=== PATIENT | female | born 1970 | race Caucasian/White ===

== ENCOUNTER 2021-10-20 10:36 | Outpatient (CLI) | payer OTHER, SELFPAY | END 2021-10-20 10:37 | disposition home or self-care (01) | LOC: KYNREF 10:36 | PROVIDERS: PCP Nurse Practitioner Family; Visit Provider Nurse Practitioner Family | DX: T81.49XA Infection following a procedure, other surgical site, initial encounter (principal) | CPT/HCPCS: 87070; 87186 ==

== ENCOUNTER 2021-10-31 07:46 | Outpatient (CLI) | payer OTHER, SELFPAY | END 2021-10-31 07:47 | disposition home or self-care (01) | LOC: WOUND 07:46 | PROVIDERS: PCP Nurse Practitioner Family; Visit Provider Nurse Practitioner Family | DX: T81.31XA Disruption of external operation (surgical) wound, not elsewhere classified, initial encounter (principal); L97.312 Non-pressure chronic ulcer of right ankle with fat layer exposed; Z72.0 Tobacco use; Z71.6 Tobacco abuse counseling | CPT/HCPCS: 99214 ==

== ENCOUNTER 2021-11-07 07:52 | Outpatient (CLI) | payer OTHER, SELFPAY | END 2021-11-07 07:53 | disposition home or self-care (01) | LOC: WOUND 07:52 | PROVIDERS: PCP Nurse Practitioner Family; Visit Provider Nurse Practitioner Family | DX: T81.31XA Disruption of external operation (surgical) wound, not elsewhere classified, initial encounter (principal); L97.312 Non-pressure chronic ulcer of right ankle with fat layer exposed; Z72.0 Tobacco use | CPT/HCPCS: 99212 ==

== ENCOUNTER 2021-11-14 08:03 | Outpatient (CLI) | payer OTHER, SELFPAY | END 2021-11-14 08:04 | disposition home or self-care (01) | LOC: WOUND 08:03 | PROVIDERS: PCP Nurse Practitioner Family; Visit Provider Nurse Practitioner Family | DX: L03.115 Cellulitis of right lower limb (principal); T81.31XA Disruption of external operation (surgical) wound, not elsewhere classified, initial encounter; Z72.0 Tobacco use | CPT/HCPCS: 11042 ==

== ENCOUNTER 2021-11-21 07:48 | Outpatient (CLI) | payer OTHER, SELFPAY | END 2021-11-21 07:49 | disposition home or self-care (01) | LOC: WOUND 07:48 | PROVIDERS: PCP Nurse Practitioner Family; Visit Provider Nurse Practitioner Family | DX: L03.115 Cellulitis of right lower limb (principal) | CPT/HCPCS: 97602 ==

== ENCOUNTER 2021-12-05 08:00 | Outpatient (CLI) | payer OTHER, SELFPAY ==
--- NOTE | 2021-12-05 09:15 | CRLHL7_ITS ---
For Patients: As a result of the Cures Act, medical imaging exams and procedure reports are released immediately into your electronic medical record. You may view this report before your referring provider. If you have questions, please contact your health care provider. Indication: Infection following a procedure Technique: Right foot 3 views Comparison: None Findings: Large plantar calcaneal spur is present. There is soft tissue swelling. No soft tissue gas. Degenerative changes at the midfoot. No fracture. Presumed postop changes to the posterior calcaneus. Impression: Soft tissue swelling. No evidence of osteomyelitis. Dictated by Gal Hernandez MD @ 12/05/2021 9:29:12 AM (Electronically Signed)
== END 2021-12-05 08:01 | disposition home or self-care (01) ==
PROVIDERS: PCP Nurse Practitioner Family; Visit Provider Nurse Practitioner Family
DX: T81.31XA Disruption of external operation (surgical) wound, not elsewhere classified, initial encounter (principal); L03.115 Cellulitis of right lower limb
CPT/HCPCS: 11042; 73630

== ENCOUNTER 2021-12-05 08:57 | Outpatient (CLI) | payer OTHER, SELFPAY | END 2021-12-05 08:58 | disposition home or self-care (01) | LOC: LAB 08:58 | PROVIDERS: PCP Nurse Practitioner Family; Visit Provider Nurse Practitioner Family | DX: T81.49XA Infection following a procedure, other surgical site, initial encounter (principal) | CPT/HCPCS: 73630; 87070; 87186 ==

== ENCOUNTER 2021-12-12 07:59 | Outpatient (CLI) | payer OTHER, SELFPAY | END 2021-12-12 08:00 | disposition home or self-care (01) | LOC: WOUND 07:59 | PROVIDERS: PCP Nurse Practitioner Family; Visit Provider Nurse Practitioner Family | DX: T81.31XA Disruption of external operation (surgical) wound, not elsewhere classified, initial encounter (principal); L03.115 Cellulitis of right lower limb | CPT/HCPCS: 97597 ==

== ENCOUNTER 2021-12-14 07:03 | Outpatient (CLI) | payer OTHER, SELFPAY ==
--- NOTE | 2021-12-14 07:15 | MR_ITS ---
[facility] [address] [facility] [address] Phone:?[phone] Fax:?[phone] Referring Physician Information: Jaja Arellano C.N.P. [address] [address] Phone:?[phone] Fax:?[phone] Patient:Monica Grullon D.O.B:?1970 Sex:?Female Phone:?[phone] [facility] MRN:?[id number] Exam Date:?12/14/2021 ? EXAM: MRI OF THE RIGHT ANKLE WITHOUT CONTRAST CLINICAL INFORMATION: Female, 51 years old, with right ankle pain following Achilles tendon repair. INDICATION: Evaluate for infection. PRIOR SURGERY: None reported. PLAIN FILMS: None available. COMPARISONS: No prior MRIs available. TECHNICAL INFORMATION: Using a 1.5T MR scanner and a localizing surface coil: sagittals: PD, T2, STIR coronals: PD, T2 axials: PD, T2 SEDATION: None. CONTRAST: None. FINDINGS: Osseous structures: 4 surgical anchors are present in the posterior calcaneal tuberosity, related to the Achilles tendon repair (coronal T2 series 9 image 7). There is moderate cystic change surrounding the 2 superior and the medial inferior surgical anchors (sagittal STIR series 5 images 15 & 19). This is associated with moderate surrounding bone marrow edema and an overlying fluid collection measuring 1.2 x 0.3 x 1.2 cm, which appears to extend to the dermis through a slender tract (axial PD series 3 image 21 and sagittal STIR series 5 images 17- 19). Os trigonum: No os trigonum or abnormally prominent Stieda's process. Tarsal coalition: No calcaneonavicular, talocalcaneal or cubonavicular coalition. Tibiotalar joint: Effusion: Small tibiotalar joint effusion. Ganglion cyst: None. Osteochondral surfaces: Mild subchondral edema is present along the posterior aspect of the tibial plafond, with minimal marginal osteophytosis (sagittal STIR series 5 image 16). Loose bodies: No demonstrable loose bodies. Subtalar joint: Effusion: Physiologic. Articular cartilage: No osteochondral abnormality. Tarsal joints: Talonavicular: Unremarkable. Calcaneocuboid: Unremarkable. Naviculocuneiform: Unremarkable. Tarsometatarsal: Unremarkable. Ligaments: Syndesmotic ligaments:?The anterior and posterior inferior tibiofibular syndesmotic ligaments are normal. Lateral ligaments:?The anterior talofibular ligament, posterior talofibular ligament, and calcaneofibular ligaments are intact. However, there is mild/moderate attenuation and irregularity of the anterior talofibular and calcaneofibular ligaments (axial PD series 3 images 15-20). Deltoid ligament:?The visualized components of the superficial and deep deltoid ligament, specifically the tibiospring and posterior tibiotalar ligaments, are intact, but mildly thickened and relatively amorphous in appearance (coronal PD series 8 images 16-19). Calcaneonavicular spring ligament:?The superomedial component of the calcaneonavicular spring ligament is grossly intact. Bifurcate and calcaneocuboid ligaments:?Intact lateral calcaneonavicular and medial calcaneocuboid ligaments. The dorsolateral calcaneocuboid ligament is intact. Tendons: Peroneal:?The peroneal tendons are appropriately situated within the retromalleolar groove and the superior peroneal retinaculum is intact. Normal thickness and signal intensity without tendinopathy, tenosynovitis, or split/tear. Flexor tendons:?The posterior tibialis, flexor digitorum and flexor hallucis longus tendons are intact. No significant tendinopathy and without tenosynovitis, tendon split or tendon disruption. Extensor tendons:?The anterior tibialis, extensor digitorum longus, and extensor hallucis longus tendons are intact. No significant tendinopathy and without tenosynovitis, tendon split or tendon disruption. Achilles:?Status post Achilles tendon repair. There is marked tendinopathy and irregularity of the distal Achilles tendon with low-grade interstitial tearing at the tendon insertion (sagittal STIR series 5 images 16-20 and axial T2 series 4 images 17-23). Sinus tarsi:?The sinus tarsi signal is normal. Plantar aponeurosis: There is no abnormal thickening of, abnormal intrasubstance signal involving, or perifascial edema about the plantar aponeurosis. Specifically, the plantar fascia origin appears normal in signal intensity and morphology. Plantar musculature:?The intrinsic foot musculature is normal in bulk and signal intensity without evidence of denervation atrophy. Neurovascular structures and tarsal tunnel: The posterior tibial neurovascular structures appear unremarkable coursing past the ankle and through the tarsal tunnel. IMPRESSION: 1. Status post Achilles tendon repair, transfixed by 4 surgical anchors. However, there is the appearance of marked Achilles tendinopathy with low-grade interstitial tearing at the tendon insertion as well as a focal sinus tract/ulceration of the posterior soft tissues with a 1.2 x 0.3 x 1.2 cm fluid collection. This fluid signal surrounds 3 of the surgical anchors with moderate bone marrow edema in the posterior calcaneal tuberosity. These findings are suspicious for a small soft tissue abscess with osteomyelitis. 2. Chronic sequela low-grade/incomplete sprains of the lateral ligaments and deltoid ligament complex. 3. Minimal osteoarthritis of the tibiotalar joint with a small joint effusion. 4. No other ligamentous or myotendinous abnormality. 5. No fracture or osseous stress reaction. BC Electronically signed on 12/14/2021 9:48:00 AM by Misael Demarco M.D.
== END 2021-12-14 07:04 | disposition home or self-care (01) ==
LOC: MRI 07:04
PROVIDERS: PCP Nurse Practitioner Family; Visit Provider Nurse Practitioner Family
DX: M25.571 Pain in right ankle and joints of right foot (principal); S86.011A Strain of right Achilles tendon, initial encounter; S93.421A Sprain of deltoid ligament of right ankle, initial encounter; M25.471 Effusion, right ankle; M19.071 Primary osteoarthritis, right ankle and foot
CPT/HCPCS: 73721

== ENCOUNTER 2021-12-16 11:34 | Outpatient (CLI) | payer OTHER, SELFPAY ==
[2021-12-16 15:22] LABS: Basophils Absolute Auto 0.04 K/uL (0.00-0.30); Basophils Percent Auto 0.4 % (0.0-3.0); Eosinophils Absolute Auto 0.14 K/uL (0.00-0.50); Eosinophils Percent Auto 1.5 % (0.0-7.0); Hematocrit 43.8 % (33.0-51.0); Hemoglobin* 14.9 gm/dL (12.0-16.0); Immature Granulocytes Abs Auto 0.06 K/uL (0.00-0.30); Lymphocytes Absolute Auto 2.46 K/uL (0.90-2.90); Mean Corpuscular HGB Conc 34 gm/dL (32-36); Mean Corpuscular Hemoglobin 33 pg (26-34); Mean Corpuscular Volume 98 fL (80-100); Monocytes Percent Auto 7.3 % (0.0-11.0); Neutrophils Absolute Auto 6.06 K/uL (1.7-7.0); Neutrophils Percent Auto 64.2 % (42.0-72.0); Platelet Count* 278 K/uL (140-440); RDW Coefficient of Variation % 13.5 % (11.5-15.5); Red Blood Count 4.47 m/uL (4.00-5.20); White Blood Count* 9.45 K/uL (4.50-11.00)
[2021-12-16 15:30] LABS: Chloride* 104 mmol/L (96-114); Potassium* 4.6 mmol/L (3.6-5.1); Sodium* 140 mmol/L (135-149)
[2021-12-16 15:33] LABS: Carbon Dioxide* 23 mmol/L (20-32); Creatinine* 0.6 mg/dL (0.5-1.5); Estimated Glomerular Filt Rate 107 ml/min
[2021-12-16 15:34] LABS: Blood Urea Nitrogen* 15 mg/dL (7-30); Glucose* 110 mg/dL (60-115)
[2021-12-16 15:36] LABS: C Reactive Protein* 0.5 mg/dL (0.5-1.0)
[2021-12-16 15:41] LABS: Slide Review Reflex No
[2021-12-16 16:28] LABS: Erythrocyte SedimentationRate* 8 mm/hr (2-20)
[2021-12-16 18:03] LABS: SARS PCR* Negative SARS-CoV-2 (Negative)
== END 2021-12-16 11:35 | disposition home or self-care (01) ==
PROVIDERS: PCP Nurse Practitioner Family; Visit Provider Nurse Practitioner Family
DX: Z01.818 Encounter for other preprocedural examination (principal); M86.9 Osteomyelitis, unspecified; Z20.822 Contact with and (suspected) exposure to COVID-19
CPT/HCPCS: 36415; 80048; 85025; 85651; 86140; 87635

== ENCOUNTER 2021-12-19 11:28 | Day surgery (SDC) | payer OTHER, SELFPAY ==
[2021-12-19 11:47] VITALS: BMI 39.5
[2021-12-19 11:57] VITALS: BP 163/85; PULSE 68; RESP 16; TEMP 36.7; O2SAT 96
[2021-12-19 11:59] VITALS: BMI 39.5
[2021-12-19] MEDS: SODIUM CHLORIDE 0.9 % (FLUSH) 10 ML SYRINGE IVF (12:05)
[2021-12-19] MEDS: LACTATED RINGERS 1000 ML 1,000 ML 100 ML IV (12:05)
--- NOTE | 2021-12-19 14:40 | CRLHL7_ITS ---
For Patients: As a result of the Century Cures Act, medical imaging exams and procedure reports are released immediately into your electronic medical record. You may view this report before your referring provider. If you have questions, please contact your health care provider. Indication: Intraoperative. Technique: Intraoperative fluoroscopy. Comparison: None. Findings/Impression: Intraoperative fluoroscopy prep Fluoroscopy time 5.3 seconds. Images 5. Dictated by Edison Murguia MD @ 12/19/2021 8:45:21 PM (Electronically Signed)
[2021-12-19] MEDS: CEFAZOLIN 2 GM INJ IVP (15:00)
[2021-12-19] MEDS: BUPIVACAINE 0.5% 30 ML INJECTION (15:00)
[2021-12-19 15:56] VITALS: BP 156/84; PULSE 65; RESP 16; TEMP 36.5; O2SAT 98
[2021-12-19 16:00] VITALS: BP 153/88; PULSE 61; RESP 16; O2SAT 98
--- NOTE | 2021-12-19 16:00 | W.ANESCHARGE ---
Anesthesia Charges Start Date/Time Anesthesia Start Date: 12/19/21 Anesthesia Start Time: 14:28 Stop Date/Time Anesthesia Stop Date: 12/19/21 Anesthesia Stop Time: 15:59 Summary Emergency: No
--- NOTE | 2021-12-19 16:01 | W.ANESCHARGE ---
Anesthesia Charges Start Date/Time Anesthesia Start Date: 12/19/21 Anesthesia Start Time: 14:28 Stop Date/Time Anesthesia Stop Date: 12/19/21 Anesthesia Stop Time: 15:59 Summary Emergency: No
--- NOTE | 2021-12-19 16:06 | P.GSOP_ITS ---
Operative Note Date of procedure: 12/19/21 Type of Procedure: 1. I&D right calcaneus with hardware removal Procedure Description: After discussing the risks and benefits of the procedure, the patient signed informed consent.? The operative site was marked and the patient was brought to the operating room and placed on the operating table in prone position.? Care was taken to pad the patient's pressure points.?? The patient was then [intubated/given sedation] by anesthesia.?? 20 mL of 0.5% Marcaine plain was injected into the posterior heel area. The operative site was then prepped and draped in the usual sterile fashion.? A time-out was then performed. The right leg was exsanguinated the tourniquet inflated. A linear incision was made through the old incision on the posterior calcaneus. The incision included ellipsing the central open wound for proximally 2 cm. This ellipse skin was discarded. Small amount of purulent drainage was noted from a small central wound that opened onto suture that had pulled through the tendon. Necrotic fatty tissue was noted to the wound and was excised with a rongeur back to healthy subcutaneous tissue. Unhealthy tendon was identified and excised. Followed the suture to the inferior medial anchor which was loose and removed with a hemostat. A deep culture of this bone was obtained. The bone canal was suctioned and curettaged. I followed the suture to the superior medial anchor and followed the tunnel through the tendon down to the anchor. This anchor was removed with a commercial collections driver and was not loose. this bone canal was also suctioned and curettaged. Sutures followed to the proximal lateral anchor which was loose and removed with a hemostat. The bone canal with suction and curettaged. finally the inferior lateral anchor was identified and removed again with a hemostat. The bone canal was suctioned and curettaged. small piece of bone from the inferior medial bone canal was sent to path in formalin. The entire area was irrigated with 1500 mL normal sterile saline. Only healthy tissue remained. Each bone canal was layered with vancomycin powder in addition to the soft tissues and incision. This was approximately 250 mg of vancomycin powder. Sterile dressings were then applied. The patient was then woken and transported to the recovery area in stable condition. The patient tolerated the procedure well. she will be discharged per Anesthesia. Written and verbal postop instructions given. She was given Tylenol 3 with codeine for pain. She is nonweightbearing with knee walker. Cam boot placed. Findings: Four SwiveLock anchors and suture removed Anesthesia: MAC Surgeon: Tyshawn Mohr DPM Estimated blood loss (mL): 5 Condition: stable Disposition: same day
[2021-12-19 16:11] VITALS: BP 169/95; PULSE 55; RESP 16; O2SAT 97
== END 2021-12-19 16:30 | disposition home or self-care (01) ==
PROVIDERS: PCP Nurse Practitioner Family; Visit Provider Podiatrist
PROC: (CPT 28120; principal; 2021-12-19 13:30)
DX: M86.671 Other chronic osteomyelitis, right ankle and foot (principal); L02.611 Cutaneous abscess of right foot
CPT/HCPCS: 28120; 01480; 73620; 76000; 87186; 87205; 88304; 88311; J0690; J2250; J2405; J2704; J3010; J3370; J3490; J7120

== ENCOUNTER 2021-12-20 12:24 | Outpatient (CLI) | payer OTHER, SELFPAY ==
--- NOTE | 2021-12-20 | CRLHL7_ITS ---
For Patients: As a result of the Cures Act, medical imaging exams and procedure reports are released immediately into your electronic medical record. You may view this report before your referring provider. If you have questions, please contact your health care provider. INDICATION: Chronic osteomyelitis with draining sinus. TECHNIQUE: Chest 2 views. COMPARISON: None. FINDINGS: Cardiovascular and mediastinum: Heart size and vasculature are normal in caliber and appearance. Lungs and pleural spaces: Lungs are clear. No sign of infiltrate or mass. No sign of pleural effusion. No pneumothorax. Bones and soft tissues: Thoracic dextrocurvature. IMPRESSION: No acute or significant findings. Dictated by Edison Murguia MD @ 12/20/2021 7:06:54 PM (Electronically Signed)
== END 2021-12-20 12:25 | disposition home or self-care (01) ==
PROVIDERS: PCP Nurse Practitioner Family; Visit Provider Nurse Practitioner Family
DX: M86.471 Chronic osteomyelitis with draining sinus, right ankle and foot (principal); L97.312 Non-pressure chronic ulcer of right ankle with fat layer exposed
CPT/HCPCS: 71046; 99213

== ENCOUNTER 2021-12-24 19:19 | Outpatient (RCR) | payer OTHER, SELFPAY ==
[2021-12-20 14:00] VITALS: BP 150/81; PULSE 64; RESP 14; TEMP 36.6; O2SAT 95
[2021-12-20] MEDS: cefTRIAXone 2 GM in 0.9 % SODIUM CHLORIDE Mini-bag 100 ML IVPB (14:49)
[2021-12-20] MEDS: 0.9 % SODIUM CHLORIDE 250 ml IV (15:20)
[2021-12-20] MEDS: SODIUM CHLORIDE 0.9 % (FLUSH) 10 ML SYRINGE IVF (16:04)
[2021-12-21] MEDS: 0.9 % SODIUM CHLORIDE 250 ml IV (13:53)
[2021-12-21] MEDS: cefTRIAXone 2 GM in 0.9 % SODIUM CHLORIDE Mini-bag 100 ML IVPB (13:53)
[2021-12-21 13:56] VITALS: BP 145/82; PULSE 56; RESP 16; TEMP 37.2; O2SAT 95
[2021-12-22 10:56] VITALS: BP 153/79; PULSE 65; RESP 16; TEMP 36.8; O2SAT 96
[2021-12-22] MEDS: SODIUM CHLORIDE 0.9 % (FLUSH) 10 ML SYRINGE IVF (11:20)
[2021-12-22] MEDS: 0.9 % SODIUM CHLORIDE 250 ml IV (11:20)
[2021-12-22] MEDS: cefTRIAXone 2 GM in 0.9 % SODIUM CHLORIDE Mini-bag 100 ML IVPB (11:22)
[2021-12-23 12:00] VITALS: BP 154/90; PULSE 81; RESP 14; TEMP 36.1; O2SAT 97
[2021-12-23] MEDS: cefTRIAXone 2 GM in 0.9 % SODIUM CHLORIDE Mini-bag 100 ML IVPB (12:00)
[2021-12-23] MEDS: SODIUM CHLORIDE 0.9 % (FLUSH) 10 ML SYRINGE IVF (14:27)
[2021-12-23] MEDS: 0.9 % SODIUM CHLORIDE 250 ml IV (14:27)
[2021-12-24 10:35] VITALS: BP 166/109; PULSE 61; RESP 20; TEMP 36.2; O2SAT 98
[2021-12-24] MEDS: cefTRIAXone 2 GM in 0.9 % SODIUM CHLORIDE Mini-bag 100 ML IVPB (10:45)
[2021-12-24] MEDS: SODIUM CHLORIDE 0.9 % (FLUSH) 10 ML SYRINGE IVF (11:18)
[2021-12-25] MEDS: cefTRIAXone 2 GM in 0.9 % SODIUM CHLORIDE Mini-bag 100 ML IVPB (10:37)
[2021-12-25] MEDS: SODIUM CHLORIDE 0.9 % (FLUSH) 10 ML SYRINGE IVF (10:38)
[2021-12-25] MEDS: 0.9 % SODIUM CHLORIDE 250 ml IV (10:38)
[2021-12-25 11:30] VITALS: BP 177/88; PULSE 74; RESP 16; TEMP 36.4; O2SAT 97
[2021-12-26] MEDS: 0.9 % SODIUM CHLORIDE 250 ml IV (10:21)
[2021-12-26] MEDS: cefTRIAXone 2 GM in 0.9 % SODIUM CHLORIDE Mini-bag 100 ML IVPB (10:21)
[2021-12-26] MEDS: SODIUM CHLORIDE 0.9 % (FLUSH) 10 ML SYRINGE IVF (10:21)
[2021-12-26 10:25] VITALS: BP 163/92; PULSE 55; RESP 18; TEMP 36.2; O2SAT 97
[2021-12-27 10:45] VITALS: BP 158/86; PULSE 77; RESP 16; TEMP 36.1; O2SAT 98
[2021-12-27] MEDS: cefTRIAXone 2 GM in 0.9 % SODIUM CHLORIDE Mini-bag 100 ML IVPB (11:03)
[2021-12-27] MEDS: SODIUM CHLORIDE 0.9 % (FLUSH) 10 ML SYRINGE IVF (11:03)
[2021-12-27] MEDS: 0.9 % SODIUM CHLORIDE 250 ml IV (11:04)
[2021-12-28] MEDS: 0.9 % SODIUM CHLORIDE 250 ml IV (10:34)
[2021-12-28] MEDS: SODIUM CHLORIDE 0.9 % (FLUSH) 10 ML SYRINGE IVF ×2 (10:34→11:20)
[2021-12-28 10:36] VITALS: BP 157/71; PULSE 57; RESP 16; TEMP 36.9; O2SAT 96
[2021-12-28] MEDS: cefTRIAXone 2 GM in 0.9 % SODIUM CHLORIDE Mini-bag 100 ML IVPB (10:41)
[2021-12-29 10:18] VITALS: BP 173/91; PULSE 64; RESP 18; TEMP 36; O2SAT 99
[2021-12-29] MEDS: 0.9 % SODIUM CHLORIDE 250 ml IV (10:20)
[2021-12-29] MEDS: SODIUM CHLORIDE 0.9 % (FLUSH) 10 ML SYRINGE IVF (10:20)
[2021-12-29] MEDS: cefTRIAXone 2 GM in 0.9 % SODIUM CHLORIDE Mini-bag 100 ML IVPB (10:20)
[2021-12-29 10:48] VITALS: BP 151/84
--- NOTE | 2021-12-29 11:58 | ONC.NURNOTE ---
Pt here for antibiotic infusion today. BP 170's/90's; used regular and large sized automatic cuffs, encouraged deep breathing. Pt denies headache, feeling unwell. Pt reports she has had 1 can of pop today, quit smoking 11 days ago and is busy preparing for a family wedding this weekend. She also notes that her BP has been high since battling this infection; she follows with Silvana Velarde CNP and notes her BP usually comes down at her appts to 150's/80's. Recheck BP at end of Rocephin infusion; 150's/80's, asymptomatic. Pt f/u with Silvana Velarde next Sun or for ongoing f/u of wound care. Recommend she review high BP's with provider then. [facility].
[2021-12-30 09:48] VITALS: BP 163/91; PULSE 59; RESP 16; TEMP 36; O2SAT 97
[2021-12-30] MEDS: cefTRIAXone 2 GM in 0.9 % SODIUM CHLORIDE Mini-bag 100 ML IVPB (10:07)
[2021-12-30] MEDS: 0.9 % SODIUM CHLORIDE 250 ml IV (10:09)
[2021-12-31] MEDS: cefTRIAXone 2 GM in 0.9 % SODIUM CHLORIDE Mini-bag 100 ML IVPB (09:58)
[2021-12-31] MEDS: 0.9 % SODIUM CHLORIDE 250 ml IV (09:59)
[2021-12-31] MEDS: SODIUM CHLORIDE 0.9 % (FLUSH) 10 ML SYRINGE IVF (10:00)
[2021-12-31 10:04] VITALS: BP 119/75; PULSE 86; RESP 16; TEMP 36.9; O2SAT 97
[2021-12-31 10:30] VITALS: BP 134/80; PULSE 80; RESP 16; TEMP 36.9; O2SAT 97
[2022-01-01 09:54] VITALS: BP 167/83; PULSE 62; RESP 16; TEMP 36.2; O2SAT 98
[2022-01-01] MEDS: cefTRIAXone 2 GM in 0.9 % SODIUM CHLORIDE Mini-bag 100 ML IVPB (09:55)
[2022-01-02 10:27] VITALS: BP 151/81; PULSE 63; RESP 16; TEMP 36; O2SAT 96
[2022-01-02] MEDS: cefTRIAXone 2 GM in 0.9 % SODIUM CHLORIDE Mini-bag 100 ML IVPB (10:40)
[2022-01-02] MEDS: 0.9 % SODIUM CHLORIDE 250 ml IV (10:40)
[2022-01-02] MEDS: SODIUM CHLORIDE 0.9 % (FLUSH) 10 ML SYRINGE IVF (10:41)
--- NOTE | 2022-01-02 10:48 | ONC.NURNOTE ---
Confirmed with Jaja Arellano in wound care center that today is the last day for IV therapy according to order. Jaja will call in a PO antibiotic for patient to start tomorrow. Patient aware and appointment for [facility] tomorrow will be cancelled.
== END 2022-06-18 23:59 | disposition home or self-care (01) ==
LOC: OP CLINIC 12-25 10:22 → MS OUT 12-26 10:08 → CCIC 12-27 10:30 → MS OUT 12-31 09:37 → CCIC 01-02 10:00
PROVIDERS: PCP Nurse Practitioner Family; Visit Provider Nurse Practitioner Family
DX: M86.471 Chronic osteomyelitis with draining sinus, right ankle and foot (principal); L97.312 Non-pressure chronic ulcer of right ankle with fat layer exposed
CPT/HCPCS: 71046; 96365; 99211; J0696; J7050

== ENCOUNTER 2022-01-06 12:46 | Outpatient (CLI) | payer OTHER, SELFPAY ==
--- OUTSIDE RECORDS SUMMARY | 2022-02-16 09:56 | XMS_ITS | Encounter Summary ---
:1970 Author Organization [facility] Address [address] [place] [address] Care Team Providers Name Role Phone Mily Contreras APRN C.N.P., D.N.P. Primary Care Provider Reason for Visit Reason Comments New Patient Outpatient (Routine) - Closed Specialty Diagnoses / Procedures Referred By Contact Refer red To Contact Rheumatology Diagnoses Polyarthritis Silvana Velarde, C.N.P. [address] [place] [address] Referral ID Status Reason Start Date Expiration Date Visits Requ ested Visits Authorized [id number] Closed 03/12/2018 03/12/2019 1 1 Encounter Details Date Type Department Care Team Description 06/24/2018 Comprehensive Visit Division of Austin Webb M.D., Ph.D. Epicondylitis Medial Left (Primary Dx); Rheumatology in [place] Narvae[place] M.B.BCarineSCarine [address] [place] [address] Polyarthritis; [place], [place] Epicondylitis Lateral Right [address] [place] [phone] Social History Tobacco Use Types Packs/Day Years [...] Comments Blood Pressure 155/94 06/24/2018 8:08 AM FRUIT RECEIVER Pulse 69 06/24/2018 8:08 AM FRUIT RECEIVER Temperature 36.7 ??C (98.1 ??F) 06/24/2018 8:08 AM FRUIT RECEIVER Respiratory Rate - - Oxygen Saturation - - Inhaled Oxygen Concentration - - Weight 98.2 kg (216 lb 7.9 oz) 06/24/2018 8:08 AM FRUIT RECEIVER Height 161.1 cm (5' 3.43) 06/24/2018 8:08 AM FRUIT RECEIVER Body Mass Index 37.84 06/24/2018 8:08 AM FRUIT RECEIVER documented in this encounter Consult Notes Destiney [...] It was a pleasure seeing her today. T RECEIVER documented in this encounter Plan of Treatment Not on filedocumented as of this encounter Results Non-Guided Aspiration/Injection - Large Joint (06/27/2018 1:00 PM FRUIT RECEIVER) Narrative Cortez Medina M.D. - 06/27/2018 1:00 PM FRUIT RECEIVER Cortez Medina M.D. ? 06/27/2018 ??1:16 PM Right trochanteric bursa steroid injecti on Date/Time: 06/27/2018 1:05 PM Performed by: CORTEZ MEDINA Authorized by: DESTINEY NARVAEZ Care team members present: ??Izabela Greco, Dr. Flako Zamora, Dr. Nany Paula (on floor) Internal Controls Specialist utilized: classroom technology coach not ne eded ?? Risks discussed with: [...] Ankle Bilateral 3 Views (06/24/2018 10:15 AM FRUIT RECEIVER) Anatomical Region Laterality Modality Lower Extremity, Foot, Ankle, Musculoskeletal RST LOS, Bilat eral Digital Radiography Musculoskeletal ARZ LOS, Muskuloskeletal FLA LOS Specimen (Source) Anatomical Collection Method Collection Time Re ceived Time Location / / Volume Laterality 06/24/2018 10:27 AM FRUIT RECEIVER Impressions 06/24/2018 10:30 AM FRUIT RECEIVER IMPRESSION: ??Corticated ossicles adjacent to the medial [...] the 1st metatarsals. Narrative 06/24/2018 10:30 AM FRUIT RECEIVER EXAM: ??DX FOOT ANKLE BILATERAL 3 VIEWS [...] Elbow Bilateral 2 Views (06/24/2018 10:15 AM FRUIT RECEIVER) Anatomical Region Laterality Modality Upper Extremity, Elbow, Musculoskeletal RST LOS, Bilateral Digital Radiography Musculoskeletal ARZ LOS, Muskuloskeletal FLA LOS Specimen (Source) Anatomical Collection Method Collection Time Re ceived Time Location / / Volume Laterality 06/24/2018 10:25 AM FRUIT RECEIVER Impressions 06/24/2018 10:27 AM FRUIT RECEIVER IMPRESSION: ??Heterotopic ossification adjacent to the medial and lateral epicondyles bilaterally. Medial hypertro phic changes right elbow. No joint effusions or periarticular erosion. Narrative 06/24/2018 10:27 AM FRUIT RECEIVER EXAM: ??DX ELBOW BILATERAL 2 VIEWS Procedure [...] Hand Bilateral 3 Views (06/24/2018 10:15 AM FRUIT RECEIVER) Anatomical Region Laterality Modality Upper Extremity, Hand, Musculoskeletal RST LOS, Bilateral Digital Radiography Musculoskeletal ARZ LOS, Muskuloskeletal FLA LOS Specimen (Source) Anatomical Collection Method Collection Time Re ceived Time Location / / Volume Laterality 06/24/2018 10:24 AM FRUIT RECEIVER Impressions 06/24/2018 10:25 AM FRUIT RECEIVER IMPRESSION: ??Mild scattered degenerative changes, greatest at the DIP joints. No periarticular erosions. Mild soft tissue swelling over the MCP joints. Narrative 06/24/2018 10:25 AM FRUIT RECEIVER EXAM: ??DX HAND BILATERAL 3 VIEWS Procedure [...] Right documented in this encounter Care Teams Jailer Relationship Specialty Start Date End Date Mily Contreras APRN, C.N.P., PCP - General Family Medicine 03/22/19 D.N.P. [address] [place] [address] documented as of this encounter
--- OUTSIDE RECORDS SUMMARY | 2022-02-16 09:56 | XMS_ITS | Encounter Summary ---
:1970 Author Organization [facility] Address [address] [place] [address] Care Team Providers Name Role Phone Mily Contreras APRN, C.N.P., D.N.P. Primary Care Provider Encounter Details Date Type Department Care Team Description 06/24/2018 Hospital Encounter Department of Muriel, Liang mcneill; Radiology, Emerita Cabello, Epicondylit is Medial Left; Building, in [facility] Epicondylitis Lateral Right [place], [place] [address] [facility] [address] [place] [address] [phone] Social History Tobacco Use Types Packs/Day Years [...] this BILATERAL 2 VIEWS (most inpatients AM HATCH SUPERVISOR Epicondylitis proce dure are in and all Medial Left the results outpatients) Epicondylitis section. Lateral Right DX HAND BILATERAL RAD - Routine 06/24/2018 10:15 Polyarthritis Results for this 3 VIEWS (most inpatients AM HATCH SUPERVISOR Epicondylitis procedure are in and all Medial Left the results outpatients) Epicondylitis section. Lateral Right documented in this encounter Results DX Elbow Bilateral 2 Views (06/24/2018 10:15 AM HATCH SUPERVISOR) Anatomical Region Laterality Modality Upper Extremity, Elbow, Musculoskeletal RST LOS, Bilateral Digital Radiography Musculoskeletal ARZ LOS, Muskuloskeletal FLA LOS Specimen (Source) Anatomical Collection Method Collection Time Re ceived Time Location / / Volume Laterality 06/24/2018 10:25 AM HATCH SUPERVISOR Impressions 06/24/2018 10:27 AM HATCH SUPERVISOR IMPRESSION: ??Heterotopic ossification adjacent to the medial and lateral epicondyles bilaterally. Medial hypertro phic changes right elbow. No joint effusions or periarticular erosion. Narrative 06/24/2018 10:27 AM HATCH SUPERVISOR EXAM: ??DX ELBOW BILATERAL 2 VIEWS Procedure [...] Hand Bilateral 3 Views (06/24/2018 10:15 AM HATCH SUPERVISOR) Anatomical Region Laterality Modality Upper Extremity, Hand, Musculoskeletal RST LOS, Bilateral Digital Radiography Musculoskeletal ARZ LOS, Muskuloskeletal FLA LOS Specimen (Source) Anatomical Collection Method Collection Time Re ceived Time Location / / Volume Laterality 06/24/2018 10:24 AM HATCH SUPERVISOR Impressions 06/24/2018 10:25 AM HATCH SUPERVISOR IMPRESSION: ??Mild scattered degenerative changes, greatest at the DIP joints. No periarticular erosions. Mild soft tissue swelling over the MCP joints. Narrative 06/24/2018 10:25 AM HATCH SUPERVISOR EXAM: ??DX HAND BILATERAL 3 VIEWS Procedure [...] Right documented in this encounter Care Teams Draw Machine Operator Relationship Specialty Start Date End Date Mily Contreras APRN C.N.P., PCP - General Family Medicine 03/22/19 D.N.P. [address] [place] [address] documented as of this encounter
--- OUTSIDE RECORDS SUMMARY | 2022-02-16 09:56 | XMS_ITS | Encounter Summary ---
:1970 Author Organization [facility] Address [address] [place] [address] Care Team Providers Name Role Phone Mily Contreras APRN C.N.P., D.N.P. Primary Care Provider Encounter Details Date Type Department Care Team Description 06/27/2018 Procedure visit Division of Destiney Narvaez M .B.BCarineSCarine [address] [place] [phone] Polyarthritis; Rheumatology in Jhon Medina M.D. [address] [place] [address] Epicondylitis Medial Left; [place], [place] Epicondylitis Lateral Right [address] [place] [phone] Social History Tobacco Use Types Packs/Day Years [...] Flako Zamora, Dr. Nany Paula (on floor) Eradicator utilized: narcotics detective not needed Risks discussed with: patient Procedural [...] instructions, dressing careand follow-up with ordering provider R NURSE documented in this encounter Plan of Treatment Not on filedocumented as of this encounter Procedures Procedure Name Priority Date/Time Associated Diagnosis Comme nts RHU NON-GUIDED Routine 06/27/2018 1:00 PM Polyarthritis Results for this ASPIRATION/INJECTIO FLOOR NURSE Epicondylitis Medial procedure are in N - LARGE JOINT Left the results Epicondylitis section. Lateral Right documented in this encounter Results Non-Guided Aspiration/Injection - Large Joint (06/27/2018 1:00 PM FLOOR NURSE) Narrative Jhon Medina M.D. - 06/27/2018 1:00 PM FLOOR NURSE Jhon Medina M.D. ? 06/27/2018 ??1:16 PM Right trochanteric bursa steroid injecti on Date/Time: 06/27/2018 1:05 PM Performed by: JHON MEDINA Authorized by: DESTINEY NARVAEZ Care team members present: ??Izabela Greco, Dr. Flako Zamora, Dr. Nany Paula (on floor) Eradicator utilized: narcotics detective not ne eded ?? Risks discussed with: [...] injection 80 mg Given 06/27/2018 1:05 PM FLOOR NURSE 80 mg (DEPO-Medrol) 80 mg, intra-articular, One-Time Injection, Starting on Alisha 06/27/18 at 1305, For 1 dose documented in this encounter Care Teams Plumbing Mechanic Relationship Specialty Start Date End Date Mily Contreras, GILBERT, C.N.P., PCP - General Family Medicine 03/22/19 D.N.P. [address] [place] [phone] documented as of this encounter
--- OUTSIDE RECORDS SUMMARY | 2022-02-16 09:56 | XMS_ITS | Encounter Summary ---
:1970 Author Organization [facility] Address [address] [place] [address] Care Team Providers Name Role Phone Mily Contreras APRN, C.N.P., D.N.P. Primary Care Provider Reason for Visit Reason Onset Date Comments Results 07/03/2018 Encounter Details Date Type Department Care Team Description 07/03/2018 Clinical Communication Division of Shayla Trujillo Rheumatology in Navi Ascencio R.N. [place], [place] [address] [place] [address] [address] [place] [phone] Social History Tobacco Use Types Packs/Day Years [...] appointment with a local physical therapist in [place]. PLAN Disposition/Recommendation: self-care appropriate at this time . Education: patient/caller able to teach back Caller agreeable to plan of care: yes The following references were used: nursing clinical judgement Telephone Encounter - Nvai Trujillo R.N. - 07/03/2018 8:53 AM CDT [...] on filedocumented in this encounter Care Teams Anti Tank Missileman Relationship Specialty Start Date End Date Mily Contreras, GILBERT, C.N.P., PCP - General Family Medicine 03/22/19 D.N.P. [address] [place] [phone] documented as of this encounter
--- OUTSIDE RECORDS SUMMARY | 2022-02-16 09:56 | XMS_ITS | Encounter Summary ---
:1970 Author Organization [facility] Address [address] [place] [address] Care Team Providers Name Role Phone Elsewhere, Pcp Primary Care Provider Unavailable Encounter Details Date Type Department Care Team Description 07/23/2020 Orders Only [facility] PCP [facility] Sa je Trejo M.D. [address] [place], [place] [phone] (Wo rk) Social History [...] on filedocumented in this encounter Care Teams Lab Intern Relationship Specialty Start Date End Date Elsewhere, Pcp PCP - General Internal Medicine 11/26/19 documented as of this encounter
--- OUTSIDE RECORDS SUMMARY | 2022-02-16 09:56 | XMS_ITS | Encounter Summary ---
:1970 Author Organization [facility] Address [address] [place] [address] Care Team Providers Name Role Phone Elsewhere, Pcp Primary Care Provider Unavailable Encounter Details Date Type Department Care Team Description 02/28/2021 Orders Only RST PCP [facility] Lois Trejo M.D. [address] [place], [place] [phone] (Wo rk) Social History [...] on filedocumented in this encounter Care Teams Guest Services Coordinator Relationship Specialty Start Date End Date Elsewhere, Pcp PCP - General Internal Medicine 11/26/19 documented as of this encounter
--- OUTSIDE RECORDS SUMMARY | 2022-02-16 09:56 | XMS_ITS | Encounter Summary ---
:1970 Author Organization [facility] Address [address] [place] [address] Care Team Providers Name Role Phone Mily Contreras APRN, C.N.P., D.N.P. Primary Care Provider Reason for Visit Outpatient (Routine) - Closed Specialty Diagnoses / Procedures Referred By Contact Refer red To Contact Diagnoses Primary Osteoarthritis Elbow Left Destiney Llamas M.B.B.S. [facility] Procedures NM Joint Scan MS BONE/JOINT IMAGING MULT AREAS HC BONE/JOINT IMAGING MULT AREAS MS BONE/JOINT IMAGING MULT AREAS [address] [place] [phone] Referral ID Status Reason Start Date Expiration Date Visits Requ ested Visits Authorized [id number] Closed 06/26/2018 06/26/2019 6 6 Encounter Details Date Type Department Care Team Description 06/27/2018 Hospital Encounter Department of Radiology, [place], [place], [place] [address] [facility] [address] [place] [phone] Social History Tobacco Use Types Packs/Day Years [...] Results f or this (most inpatients AM LOG SORTING SUPERVISOR Osteoarthritis Elbow pro cedure are in and all Left the results outpatients) section. documented in this encounter Visit Diagnoses Not on filedocumented in this encounter Administered Medications Inactive Administered Medications - up to 3 most recent administrations Medication Order MAR Action Action Date Dose Rate Site potassium perchlorate solution Given 06/27/2018 11:00 AM LOG SORTING SUPERVISOR 200 mg 200 mg 200 mg, oral, Once, On Alisha 06/27/18 at 1130, For 1 dose documented in this encounter Care Teams Robot Technician Relationship Specialty Start Date End Date Mily Contreras APRN, C.N.P., PCP - General Family Medicine 03/22/19 D.N.P. [address] [place] [address] documented as of this encounter
--- OUTSIDE RECORDS SUMMARY | 2022-02-16 09:56 | XMS_ITS | Clinical Summary ---
:1970 Author Organization [employer] [facility] [employer] [facility] [place] [address] Care Team Providers Name Role Phone Silvana Velarde CONTRACT ASSOCIATE MANAGER Primary Care Provider Unavailable Pcp, No [...] 03/31/20 21 Medical Devices Implanted Type Area Type Casting Machine Operator Device Shelf Model / Identifier Expiration Serial / Lot Date Implant System, Biocomposite Achilles Speedbridge W/Jumpstart Right: [employer] 12/21/2022 [id number] / Implanted: Qty: 1 on 04/04/2021 by Tyshawn Rucker DPM at [facility] / [id number] Suture Axson, Biocomposite Swivellock C, Closed Eyelet Le ft: [employer] 04/22/2025 [id number] / Implanted: Qty: 2 on 08/29/2021 by Tyshawn Rucker DPM at [facility] Ankle / [id number] Procedures Procedure Name Priority Date/Time Associated Diagnosis [...] Organization Address City/State/ZIP Code Phon e Number [facility] [address] [place] [address] LABORATORY-CENTRAL 2000 LABORATORY PATH TISSUE EXAM (12/19/2021 3:30 PM CDT) Component Value Ref Test Analysis Performed At [facility] gist Range Method Time Signature Case Report Pathology Report ?Case: [id number] ? 12/21/2021 [facility] Authorizing Provider: ??Unkn own, Doctor ?Collected: ? 12/19/2021 1530 ? 3:23 PM HEAL TH Ordering Location: ? [facility] ?Received: ?12/20/2021 0814 ? [...] specimens. Additional 12/21/2021 [facility] Information Interpreted at [facility], Central Laboratory - [address], [place] [address] 3:23 PM HEALTH CDT LABORATORY-C ENTRAL LABORATORY Specimen Anatomical Collection Method Collection Time Receive d Time (Source) Location / / Volume Laterality Other (Right) 12/19/2021 3:30 PM 12/21/19 22 8:14 CDT AM CDT Doctor Unknown PATHOLOGY/CYTOLOGY Performing Organization Address City/State/ZIP Code Phon e Number [facility] [employer] [address] [place] [address] LABORATORY-CENTRAL 2000 LABORATORY SCAN-RADIOLOGY REPORT (12/19/2021 12:00 [...] ss Type Group PREFERRED ONE PREFERRED ONE [id number] 2020-Present [address] [place] [phone] Advance Directives Latest Code Status on File Code Status Date Activated Date Inactivated Comments Full Code 08/29/2021 9:54 AM 08/29/2021 7:58 PM Code Status Discussion: Reviewed Preferences Full Code 04/04/2021 10:26 AM 04/04/2021 6:33 PM Code Status Discussion: Reviewed Preferences Care Teams Tuberculosis Specialist Relationship Specialty Start Date End Date Silvana Velarde NP PCP - General Emergency Medicine 03/16/21 [address], [place] [address] Pcp, No 03/16/21 .
--- OUTSIDE RECORDS SUMMARY | 2022-02-16 09:56 | XMS_ITS | Clinical Summary ---
:1970 Author Organization [facility] Address [address] [place] [address] Care Team Providers Name Role Phone Elsewhere, Pcp Primary Care Provider Unavailable Source Comments Patient records contain information from all sites at [facility]. For routine questions regarding patient records, call [phone] during business hours, M-F 8:00 AM - 5:00 PM Central Time. Record requests for emergency care only can be directed to [phone] at any time.[facility] Allergies Active Allergy Reactions Severity Noted Date [...] Comments Blood Pressure 155/94 06/24/2018 8:08 AM TICKET MANAGER Pulse 69 06/24/2018 8:08 AM TICKET MANAGER Temperature 36.7 ??C (98.1 ??F) 06/24/2018 8:08 AM TICKET MANAGER Respiratory Rate 15 10/13/2015 7:53 AM CDT Oxygen Saturation - - Inhaled Oxygen Concentration - - Weight 98.2 kg (216 lb 7.9 oz) 06/24/2018 8:08 AM TICKET MANAGER Height 157.5 cm (5' 2) 06/27/2018 2:06 PM TICKET MANAGER Body Mass Index 37.84 06/24/2018 8:08 AM TICKET MANAGER Plan of Treatment Health Maintenance Due Date [...] Address T e Group Dates PREFERREDONE PREFERREDONE [id number] 2015-Pre [phone] PPO ADMINISTRATIVE ADMINISTRATIVE sent [phone] SERVICES SERVICES [place] [phone] Care Teams Manager Of Investigations Relationship Specialty Start Date End Date Elsewhere, Pcp PCP - General Internal Medicine 11/26/19
--- OUTSIDE RECORDS SUMMARY | 2022-02-16 09:56 | XMS_ITS | Encounter Summary ---
:1970 Author Organization [facility] Address [address] [place] [address] Care Team Providers Name Role Phone Elsewhere, Pcp Primary Care Provider Unavailable Reason for Visit Reason Comments COVID Nurse Line Encounter Details Date Type Department Care Team Description 07/07/2020 Clinical Communication Division of Aster Camejo COV ID Nurse [facility] Internal M.Tami, R.N. [facility] [address] [place] [address] [facility] [phone] [place] [address] [place] [address] (Work) [place] [phone] Social History Tobacco Use Types Packs/Day Years [...] Screening ASSESSMENT Region Select appropriate region: : [place] Age Pathway Select approprite pathway: : Adult [...] swabbed for COVID-19 Only , sent to [facility] located at [address] [facility]. You must schedule an appointment for testing at this location. Please call [phone] during the hours of 7 am to [...] water are not available, use a hand looseleaf binder coverer -Avoid touching your eyes, nose and mouth. [...] care: Yes The following references were used: [facility] novel coronavirus (COVID- 19) resources documented in this encounter Plan of Treatment Not on filedocumented as of this encounter Visit Diagnoses Not on filedocumented in this encounter Care Teams Communications Coordinator Relationship Specialty Start Date End Date Elsewhere, Pcp PCP - General Internal Medicine 11/26/19 documented as of this encounter
--- OUTSIDE RECORDS SUMMARY | 2022-02-16 09:56 | XMS_ITS | Encounter Summary ---
:1970 Author Organization [facility] Address [address] [place] [address] Care Team Providers Name Role Phone Mily Contreras APRN C.N.P., D.N.P. Primary Care Provider Reason for Referral Outpatient (Routine) - Closed Specialty Diagnoses / Procedures Referred By Contact Refer red To Contact Diagnoses Primary Osteoarthritis Elbow Left Destiney Llamas [facility] Procedures NM Joint Scan MT BONE/JOINT IMAGING MULT AREAS HC BONE/JOINT IMAGING MULT AREAS MT BONE/JOINT IMAGING MULT AREAS [address] [place] [address] Referral ID Status Reason Start Date Expiration Date Visits Requ ested Visits Authorized [id number] Closed 06/26/2018 06/26/2019 6 6 RVISOR MAINTENANCE AND CUSTODIANS Reason for Visit Outpatient (Routine) - Closed Specialty Diagnoses / Procedures Referred By Contact Refer red To Contact Diagnoses Primary Osteoarthritis Elbow Left Destiney Llamas M.B.B.S[facility] Procedures NM Joint Scan MT BONE/JOINT IMAGING MULT AREAS HC BONE/JOINT IMAGING MULT AREAS MT BONE/JOINT IMAGING MULT AREAS [address] [place] [address] Referral ID Status Reason Start Date Expiration Date Visits Requ ested Visits Authorized [id number] Closed 06/26/2018 06/26/2019 6 6 Encounter Details Date Type Department Care Team Description 06/27/2018 Hospital Encounter Department of Mak[place], Primary Osteoarthritis Radiology, Gonda Destiney, Elbow Left Building, in [facility] [place], [address] [place], [place] [address] [facility] [address] [place], [place] [phone] (Work) [phone] Social History Tobacco Use Types Packs/Day Years [...] Results f or this (most inpatients AM SUPERVISOR MAINTENANCE AND CUSTODIANS Osteoarthritis Elbow pro cedure are in and all Left the results outpatients) section. documented in this encounter Results NM Joint Scan (06/27/2018 11:59 AM SUPERVISOR MAINTENANCE AND CUSTODIANS) Anatomical Region Laterality Modality Joint, Nuclear Medicine RST LOS, Nuclear Medicine ARZ N/A Nuclear Medicine LOS, Nuclear Medicine FLA LOS Specimen (Source) Anatomical Collection Method Collection Time Re ceived Time Location / / Volume Laterality 06/27/2018 12:12 PM SUPERVISOR MAINTENANCE AND CUSTODIANS Impressions 06/27/2018 12:29 PM SUPERVISOR MAINTENANCE AND CUSTODIANS IMPRESSION: ??Mild scattered uptake about the left lateral forefoot, right femoral trochanteric bursa and left knee suprapatellar synovium; favor degenerative process. Narrative 06/27/2018 12:29 PM SUPERVISOR MAINTENANCE AND CUSTODIANS EXAM: ??NM JOINT SCAN RADIOPHARMACEUTICAL/MEDS: Route: intravenous [...] suprapatellar synovium; favor degenerative process. Destiney Peña [facility] PROCEDURES documented in this encounter Visit Diagnoses Diagnosis Primary Osteoarthritis Elbow Left documented in this encounter Administered Medications Inactive Administered Medications - up to 3 most recent administrations Medication Order MAR Action Action Date Dose Rate Site sodium pertechnetate Tc 99m Given 06/27/2018 11:45 AM 21.3 aurelia curies injection (TECHNETIUM SUPERVISOR MAINTENANCE AND CUSTODIANS Tc-99m) 21.3 millicurie, intravenous, Once, On Alisha 06/27/18 at 1145, For 1 dose documented in this encounter Care Teams Project Builder Relationship Specialty Start Date End Date Mily Contreras APRN, C.N.P., PCP - General Family Medicine 03/22/19 D.N.P. [address] [place] [address] documented as of this encounter
--- OUTSIDE RECORDS SUMMARY | 2022-02-16 09:56 | XMS_ITS | Encounter Summary ---
:1970 Author Organization [facility] Address [address] [place] [address] Care Team Providers Name Role Phone Mily [...] on filedocumented in this encounter Care Teams Director Hematology Relationship Specialty Start Date End Date Mily Contreras APRN, C.N.P., PCP - General Family Medicine 03/22/19 D.N.P. [address] [place] [phone] documented as of this encounter
--- OUTSIDE RECORDS SUMMARY | 2022-02-16 09:56 | XMS_ITS | Encounter Summary ---
:1970 Author Organization [facility] Address [address] [place] [address] Care Team Providers Name Role Phone Mily Contreras APRN, C.N.P., D.N.P. Primary Care Provider Encounter Details Date Type Department Care Team Description 06/24/2018 Hospital Encounter Department of Muriel, Liang mcneill; Radiology, Emerita Cabello, Epicondylit is Medial Left; Building, in M.B.B.S. Epicondylitis Lateral Right [place], [place] [address] [facility] [address] [place] [address] [phone] Social History Tobacco Use Types Packs/Day Years [...] this BILATERAL 3 VIEWS (most inpatients AM DIRECTOR TITLE Epicondylitis proce dure are in and all Medial Left the results outpatients) Epicondylitis section. Lateral Right documented in this encounter Results DX Foot Ankle Bilateral 3 Views (06/24/2018 10:15 AM DIRECTOR TITLE) Anatomical Region Laterality Modality Lower Extremity, Foot, Ankle, Musculoskeletal RST LOS, Bilat eral Digital Radiography Musculoskeletal ARZ LOS, Muskuloskeletal FLA LOS Specimen (Source) Anatomical Collection Method Collection Time Re ceived Time Location / / Volume Laterality 06/24/2018 10:27 AM DIRECTOR TITLE Impressions 06/24/2018 10:30 AM DIRECTOR TITLE IMPRESSION: ??Corticated ossicles adjacent to the medial [...] the 1st metatarsals. Narrative 06/24/2018 10:30 AM DIRECTOR TITLE EXAM: ??DX FOOT ANKLE BILATERAL 3 VIEWS [...] Right documented in this encounter Care Teams Instructional Support Technician Relationship Specialty Start Date End Date Mily Contreras APRN, C.N.P., PCP - General Family Medicine 03/22/19 D.N.P. [address] [place] [address] documented as of this encounter
--- OUTSIDE RECORDS SUMMARY | 2022-02-16 09:56 | XMS_ITS | Encounter Summary ---
:1970 Author Organization [facility] Address [address] [place] [address] Care Team Providers Name Role Phone Elsewhere, Pcp Primary Care Provider Unavailable Reason for Visit Reason Comments COVID Inquiry Encounter Details Date Type Department Care Team Description 03/23/2020 Clinical Communication Central Appointment [place] Office in [address] [phone] Social History Tobacco Use Types Packs/Day Years [...] Endpoint recommendation: Testing indicated, sent patient to [facility] located at [address] You must call [phone] for an appointment time. Testing hours are [...] sending patient for testing in T or [facility], an email notification is required. RVISOR HOUSECLEANER documented in this encounter Plan of Treatment Not on filedocumented as of this encounter Visit Diagnoses Not on filedocumented in this encounter Care Teams Auto Rental Supervisor Relationship Specialty Start Date End Date Elsewhere, Pcp PCP - General Internal Medicine 11/26/19 documented as of this encounter
--- OUTSIDE RECORDS SUMMARY | 2022-02-16 09:56 | XMS_ITS | Encounter Summary ---
:1970 Author Organization [facility] Address [address] [place] [address] Care Team Providers Name Role Phone Elsewhere, Pcp Primary Care Provider Unavailable Reason for Referral Specialty Diagnoses / Procedures Referred By Contact Refer red To Contact Lois Lopez M.D. [facility] [address] [place] [phone] Referral ID Status Reason Start Date Expiration Date Visits Requ ested Visits Authorized TABLE CUTTER Encounter Details Date Type Department Care Team Description 02/28/2021 Orders Only RST PCP [facility] MNT Lois Lopez M.D. [address] [place] [phone] (Wo rk) Social History Tobacco [...] on filedocumented in this encounter Care Teams Remodeler Relationship Specialty Start Date End Date Elsewhere, Pcp PCP - General Internal Medicine 11/26/19 documented as of this encounter
--- OUTSIDE RECORDS SUMMARY | 2022-02-16 09:56 | XMS_ITS | Encounter Summary ---
:1970 Author Organization [facility] Address [address] [place] [address] Care Team Providers Name Role Phone Elsewhere, Pcp Primary Care Provider Unavailable Reason for Visit Reason Onset Date Comments Testing For Upper Respiratory Virus Symptoms 07/07/2020 Encounter Details Date Type Department Care Team Description 07/07/2020 External Outreach Department of Employer Based , Covid Serology Testing Contact With And Family Medicine, Flako Montgomery P.A.-C. [address] [place] [address] (Suspected) Exposure [facility], in To COVID -19 (Primary [place], [place] Dx) [address] [place] [address] Social History Tobacco Use Types [...] RNA, V Symptomatic (07/07/2020 11:06 AM CDT) [facility] Method Time Signature SARS-CoV-2 Swab, 07/07/2020 [...] pe rformed using the Aptima SARS-CoV-2 assay ([employer] on the scPharmaceuticalss tem under emergency use authorization (EUA) by the U.S. Food and Drug Administ ration. Fact sheets for this EUA assay can be fo und at the following links: For Healthcare Providers: https://www.fd a.gov/media/526743/download For Patients: https://www.fda.gov/media/ 287176/download Specimen Anatomical Collection Method Collection Time Receive d Time (Source) Location / / Volume Laterality Varies 07/07/2020 11:06 07/07/2020 3:20 (Nasopharynx) AM CDT PM CDT Flako Montgomery P.A.-C. LAB MICROBIOLOGY - GENERAL O RDERAKIMBERLEE Performing Organization Address City/State/ZIP Code Phon e Number [facility] [address] [place] [address] 14 [address] [facility] [place] [address] [address] documented in this encounter Visit Diagnoses Diagnosis Contact With And (Suspected) Exposure To COVID-19 - Primary documented in this encounter Additional Health Concerns Infection Onset Date Last Indicated Resolved Time COVID19 Pending 07/07/2020 07/07/2020 07/07/2020 9:46 PM CDT documented as of this encounter Care Teams Sheeter Machine Operator Relationship Specialty Start Date End Date Elsewhere, Pcp PCP - General Internal Medicine 11/26/19 documented as of this encounter
--- OUTSIDE RECORDS SUMMARY | 2022-02-16 09:56 | XMS_ITS | Encounter Summary ---
:1970 Author Organization [facility] Address [address] [place] [address] Care Team Providers Name Role Phone Elsewhere, Pcp Primary Care Provider Unavailable Encounter Details Date Type Department Care Team Description 03/30/2020 [facility] Julisa Vann [place] M.D. [address] [place] [address] [place], [place] [phone] (Wo rk) Social History Tobacco Use Types [...] documented as of this encounter Care Teams Ink Printer Relationship Specialty Start Date End Date Elsewhere, Pcp PCP - General Internal Medicine 11/26/19 documented as of this encounter
--- OUTSIDE RECORDS SUMMARY | 2022-02-16 09:56 | XMS_ITS | Encounter Summary ---
:1970 Author Organization [facility] Address [address] [place] [address] Care Team Providers Name Role Phone Elsewhere, Pcp Primary Care Provider Unavailable Encounter Details Date Type Department Care Team Description 03/25/2020 Admin Visit Department of Family Medicine, [facility] [place] in [place], [place] [address] [place] [address] Social History Tobacco Use Types Packs/Day [...] COVID19 Pending 03/24/2020 03/25/2020 03/25/2020 11:55 PM TRACK DRESSER documented as of this encounter Care Teams Host Hostess Relationship Specialty Start Date End Date Elsewhere, Pcp PCP - General Internal Medicine 11/26/19 documented as of this encounter
--- OUTSIDE RECORDS SUMMARY | 2022-02-16 09:56 | XMS_ITS | Encounter Summary ---
:1970 Author Organization [facility] Address [address] [place] [address] Care Team Providers Name Role Phone Elsewhere, Pcp Primary Care Provider Unavailable Reason for Visit Reason Onset Date Comments Outpatient COVID-19 Testing 03/24/2020 Encounter Details Date Type Department Care Team Description 03/24/2020 External Outreach Department of [facility] Cuca Montgomery Infection Upper Medicine, [place] PCarineACarine-CCarine Respiratory (Primary Clinic, in [address] Dx) [address] [address] [place], [place] [phone] [phone] (Work) [phone] Social History Tobacco Use Types Packs/Day Years [...] Encounter created for the drive-through COVID-19 testing. ITECTURAL COATING FINISHER documented in this encounter Plan of Treatment Not on filedocumented as of this encounter Procedures Procedure Name Priority Date/Time Associated Diagnosis Comme nts SARS CORONAVIRUS-2 Routine 03/25/2020 7:06 AM Infection Upper Results for this RNA, V ARCHITECTURAL COATING FINISHER Respiratory procedure are i n the results section. documented in this encounter Results SARS Coronavirus-2 RNA, V Symptomatic (03/25/2020 7:06 AM ARCHITECTURAL COATING FINISHER) [facility] Method Time Signature SARS-CoV-2 Swab, 03/25/2020 ECLR Specimen Nasopharynx 11:54 PM Source ARCHITECTURAL COATING FINISHER SARS CoV-2 Undetected Undetected 03/25/2020 ECLR RNA, TMA 11:54 PM ARCHITECTURAL COATING FINISHER Comment: SARS-CoV-2 RNA absent. This result does not rule out COVID-19 in the patient, as the sensitivity of the test depends o n the timing of the specimen collection and the quality of the specim en. Result should be correlated with patient's history and clinical presentat ion. ----ADDITIONAL INFORMATION---- This test is performed using the Aptima SARS-CoV-2 assay ([employer] which has received Emergency Use Authori zation (EUA) by the U.S. Food and Drug Administration. Fact sheets for this Emergency Use Autho rization (EUA) assay can be found at the following links: For Healthcare Providers: https://www.[employer] a.gov/media/513850/download For Patients: https://www.fda.gov/media/ 379650/download Specimen Anatomical Collection Method Collection Time Receive d Time (Source) Location / / Volume Laterality Varies 03/25/2020 7:06 AM 0 3:33 (Nasopharynx) ARCHITECTURAL COATING FINISHER PM ARCHITECTURAL COATING FINISHER Flako Montgomery P.A.-C. LAB MICROBIOLOGY - GENERAL O THU Performing Organization Address City/State/[facility] Code Phon e Number [facility]- [address] [place] [address] [phone] [facility] [address] [address] documented in this encounter Visit Diagnoses Diagnosis Infection Upper Respiratory - Primary documented in this encounter Additional Health Concerns Infection Onset Date Last Indicated Resolved Time COVID19 Pending 03/24/2020 03/25/2020 03/25/2020 11:55 PM ARCHITECTURAL COATING FINISHER documented as of this encounter Care Teams Infusion Rn Relationship Specialty Start Date End Date Elsewhere, Pcp PCP - General Internal Medicine 11/26/19 documented as of this encounter
--- OUTSIDE RECORDS SUMMARY | 2022-02-16 09:56 | XMS_ITS | Encounter Summary ---
:1970 Author Organization [facility] Address [address] [place] [address] Care Team Providers Name Role Phone Mily Contreras APRN, C.N.P., D.N.P. Primary Care Provider Encounter Details Date Type Department Care Team Description 06/27/2018 Orders Only Division of Rheumatology in [place], [place] M.B.B.S. [address] [facility] [address] [place] [phone] [place], [place] [phone] (Wo rk) Social History Tobacco Use Types [...] on filedocumented in this encounter Care Teams Phytopathologist Relationship Specialty Start Date End Date Mily Contreras APRN, C.N.P., PCP - General Family Medicine 03/22/19 D.N.P. [address] [place] [phone] documented as of this encounter
--- OUTSIDE RECORDS SUMMARY | 2022-02-16 09:56 | XMS_ITS | Encounter Summary ---
:1970 Author Organization [facility] Address [address] [place] [address] Care Team Providers Name Role Phone Mily Contreras APRN C.N.P., D.N.P. Primary Care Provider Reason for Referral MRI/CAT/PET Scan (Routine) - Closed Specialty Diagnoses / Procedures Referred By Contact Refer red To Contact Radiology Diagnoses Primary Osteoarthritis Elbow Left Destiney Llamas M.B.BCarineSCarine [facility] Procedures MR Elbow Left without and with IV Contrast VA MRI UPR EXT JOINT WO/W CNTRST HC MRI UPR EXT JOINT WO/W CNTRST VA MRI UPR EXT JOINT WO/W CNTRST [address] [place] [address] Referral ID Status Reason Start Date Expiration Date Visits Requ ested Visits Authorized [id number] Closed 06/26/2018 06/26/2019 1 1 STIC VIOLENCE ADVOCATE Outpatient (Routine) - Closed Specialty Diagnoses / Procedures Referred By Contact Refer red To Contact Diagnoses Primary Osteoarthritis Elbow Left Destiney Llamas M.B.B.S. [facility] Procedures NM Joint Scan VA BONE/JOINT IMAGING MULT AREAS HC BONE/JOINT IMAGING MULT AREAS VA BONE/JOINT IMAGING MULT AREAS [address] [place] [address] Referral ID Status Reason Start Date Expiration Date Visits Requ ested Visits Authorized [id number] Closed 06/26/2018 06/26/2019 6 6 STIC VIOLENCE ADVOCATE Encounter Details Date Type Department Care Team Description 06/26/2018 Orders Only Division of Destiney Llamas, Primary Osteo arthritis Rheumatology in [place]. Elbow Left [place], [place] [address] [place] [address] [phone] Social History Tobacco Use Types Packs/Day Years [...] and with IV Contrast (06/27/2018 2:52 PM DOMESTIC VIOLENCE ADVOCATE) Anatomical Region Laterality Modality Upper Extremity, Elbow, Musculoskeletal RST LOS, Left Magnetic Resonance Musculoskeletal ARZ LOS, Muskuloskeletal FLA LOS Specimen (Source) Anatomical Collection Method Collection Time Re ceived Time Location / / Volume Laterality 06/27/2018 2:39 PM DOMESTIC VIOLENCE ADVOCATE Impressions 06/27/2018 3:22 PM DOMESTIC VIOLENCE ADVOCATE IMPRESSION: ?? 1. Findings compatible with acute on chr onic medial and lateral epicondylitis. 2. No findings to suggest inflammatory a rthritis in the left elbow. Narrative 06/27/2018 3:22 PM DOMESTIC VIOLENCE ADVOCATE EXAM: ??MR ELBOW LEFT WITHOUT AND WITH [...] PROCEDURES NM Joint Scan (06/27/2018 11:59 AM DOMESTIC VIOLENCE ADVOCATE) Anatomical Region Laterality Modality Joint, Nuclear Medicine RST LOS, Nuclear Medicine ARZ N/A Nuclear Medicine LOS, Nuclear Medicine FLA LOS Specimen (Source) Anatomical Collection Method Collection Time Re ceived Time Location / / Volume Laterality 06/27/2018 12:12 PM DOMESTIC VIOLENCE ADVOCATE Impressions 06/27/2018 12:29 PM DOMESTIC VIOLENCE ADVOCATE IMPRESSION: ??Mild scattered uptake about the left lateral forefoot, right femoral trochanteric bursa and left knee suprapatellar synovium; favor degenerative process. Narrative 06/27/2018 12:29 PM DOMESTIC VIOLENCE ADVOCATE EXAM: ??NM JOINT SCAN RADIOPHARMACEUTICAL/MEDS: Route: intravenous [...] Left documented in this encounter Care Teams Spring Manufacturing Set Up Technician Relationship Specialty Start Date End Date Mily Contreras, GILBERT, C.N.P., PCP - General Family Medicine 03/22/19 D.N.P. [address] [place] [phone] documented as of this encounter
--- OUTSIDE RECORDS SUMMARY | 2022-02-16 09:56 | XMS_ITS | Encounter Summary ---
:1970 Author Organization [facility] Address [address] [place] [address] Care Team Providers Name Role Phone Mily Contreras APRN, C.N.P., D.N.P. Primary Care Provider Encounter Details Date Type Department Care Team Description 05/24/2018 Orders Only [facility] PCP [facility] MNT Mily Contreras, Screening Mammogram Breast Cancer; GILBERT, C.N.P., Screening Exam ination Diabetes Mellitus; D.N.P. Screening Lipid [address] [place] [phone] Social History Tobacco Use Types Packs/Day Years Used Date Smoking Tobacco: Every Day Sex Assigned at Date Recorded Not on file documented as of this encounter Plan of Treatment Not on filedocumented as of this encounter Results BI Breast Screening Bilateral with Tomosynthesis (08/10/2020 7:46 AM CDT) Anatomical Region Laterality Modality Breast, Breast Imaging RST LOS, Breast Imaging ARZ [facility] Bilateral Mammography Imaging FLA [facility] Specimen (Source) Anatomical Collection Method Collection Time [...] Cancer documented in this encounter Care Teams Project Financial Analyst Relationship Specialty Start Date End Date Mily Contreras APRN, C.N.P., PCP - General Family Medicine 03/22/19 D.N.P. [address] [place] [address] documented as of this encounter
--- OUTSIDE RECORDS SUMMARY | 2022-02-16 09:56 | XMS_ITS | Encounter Summary ---
:1970 Author Organization [facility] Address [address] [place] [address] Care Team Providers Name Role Phone Elsewhere, Pcp Primary Care Provider Unavailable Encounter Details Date Type Department Care Team Description 07/07/2020 Admin Visit Department of Family [facility], [facility] [place] in [place], [place] [address] [place] [address] Social History Tobacco Use Types Packs/Day [...] documented as of this encounter Care Teams Stone Paver Relationship Specialty Start Date End Date Elsewhere, Pcp PCP - General Internal Medicine 11/26/19 documented as of this encounter
--- OUTSIDE RECORDS SUMMARY | 2022-02-16 09:56 | XMS_ITS | Encounter Summary ---
:[address] [facility] Address [address] [place] [address] Care Team Providers Name Role Phone Elsewhere, Pcp Primary Care Provider Unavailable Reason for Visit Reason Comments COVID Inquiry Encounter Details Date Type Department Care Team Description 07/07/2020 Clinical Communication Central Appointment Prescheduli LAKISHA sebastian Office in [address] [phone] Social History Tobacco Use Types Packs/Day Years [...] Because of symptoms, transfer patient to: : [place] COVID Nurse Line (End Screening) Symptom Onset Date of symptom onset: 07/05/20 Testing Recommendation Endpoint Is testing recommended? : Recommended to test Plan: Endpoint recommendation: Transferred to Nursing/COVID Line/Care Team *Reminder if sending patient for testing in [facility] or [facility], route encounter to the correct testing pool. documented in this encounter Plan of Treatment Not on filedocumented as of this encounter Visit Diagnoses Not on filedocumented in this encounter Care Teams Count Team Clerk Relationship Specialty Start Date End Date Elsewhere, Pcp PCP - General Internal Medicine 11/26/19 documented as of this encounter
--- OUTSIDE RECORDS SUMMARY | 2022-02-16 09:56 | XMS_ITS | Encounter Summary ---
:1970 Author Organization [facility] Address [address] [place] [address] Care Team Providers Name Role Phone Mily Cnotreras APRN C.N.P., D.N.P. Primary Care Provider Reason for Referral MRI/CAT/PET Scan (Routine) - Closed Specialty Diagnoses / Procedures Referred By Contact Refer red To Contact Radiology Diagnoses Primary Osteoarthritis Elbow Left Destiney Llamas M.B.B.S. [facility] Procedures MR Elbow Left without and with IV Contrast ID MRI UPR EXT JOINT WO/W CNTRST HC MRI UPR EXT JOINT WO/W CNTRST ID MRI UPR EXT JOINT WO/W CNTRST [address] [place] [address] Referral ID Status Reason Start Date Expiration Date Visits Requ ested Visits Authorized [id number] Closed 06/26/2018 06/26/2019 1 1 HEN WORKER Reason for Visit MRI/CAT/PET Scan (Routine) - Closed Specialty Diagnoses / Procedures Referred By Contact Refer red To Contact Radiology Diagnoses Primary Osteoarthritis Elbow Left Destiney Llamas M.B.B.SCarine [facility] Procedures MR Elbow Left without and with IV Contrast ID MRI UPR EXT JOINT WO/W CNTRST HC MRI UPR EXT JOINT WO/W CNTRST ID MRI UPR EXT JOINT WO/W CNTRST [address] [place] [address] Referral ID Status Reason Start Date Expiration Date Visits Requ ested Visits Authorized [id number] Closed 06/26/2018 06/26/2019 1 1 Encounter Details Date Type Department Care Team Description 06/27/2018 Hospital Encounter Department of [place], Primary Osteoarthritis Radiology, [place] Destiney, Elbow Le [facility], in .B.B.S. [place] [address] [place], [place] [address] [facility] [address] [place], [place] [phone] (Work) [phone] Social History Tobacco Use Types Packs/Day Years [...] 157.5 cm (5' 2) 06/27/2018 2:06 PM KITCHEN WORKER Body Mass Index - - documented in [...] r WITHOUT AND WITH (most inpatients PM KITCHEN WORKER Osteoarthritis Elbow this procedure IV CONTRAST and all Left are in the outpatients) results section. documented in this encounter Results MR Elbow Left without and with IV Contrast (06/27/2018 2:52 PM KITCHEN WORKER) Anatomical Region Laterality Modality Upper Extremity, Elbow, Musculoskeletal RST LOS, Left Magnetic Resonance Musculoskeletal ARZ LOS, Muskuloskeletal FLA LOS Specimen (Source) Anatomical Collection Method Collection Time Re ceived Time Location / / Volume Laterality 06/27/2018 2:39 PM KITCHEN WORKER Impressions 06/27/2018 3:22 PM KITCHEN WORKER IMPRESSION: ?? 1. Findings compatible with acute on chr onic medial and lateral epicondylitis. 2. No findings to suggest inflammatory a rthritis in the left elbow. Narrative 06/27/2018 3:22 PM KITCHEN WORKER EXAM: ??MR ELBOW LEFT WITHOUT AND WITH [...] injection 0.5-15 mL Given 06/27/2018 2:48 PM KITCHEN WORKER 10 m L (GADAVIST) 0.5-15 mL, intravenous, Once in imaging, contrast, Starting on Alisha 06/27/18 at 1354, For 1 dose, Imaging Protocol Orders, Dose per Radiant Medication Guidelines documented in this encounter Care Teams Form Building Supervisor Relationship Specialty Start Date End Date Mily Contreras APRN, C.N.P., PCP - General Family Medicine 03/22/19 D.N.P. [address] [place] [phone] documented as of this encounter
--- OUTSIDE RECORDS SUMMARY | 2022-02-16 09:56 | XMS_ITS | Encounter Summary ---
:1970 Author Organization [facility] Address [address] [place] [address] Care Team Providers Name Role Phone Mily Contreras APRN, C.N.P., D.N.P. Primary Care Provider Reason for Visit Reason Onset Date Comments Results 06/26/2018 Encounter Details Date Type Department Care Team Description 06/26/2018 Clinical Communication Division of Diane Shannon, Results Rheumatology in [place], [place] [address] [facility] [address] [place] [address] [phone] Social History Tobacco Use Types Packs/Day Years [...] following references were used: nursing clinical judgement HIATRIST Telephone Encounter - Diane Shannon R.N. - [...] schedule it for the more symptomatic side. HIATRIST documented in this encounter Plan of Treatment Not on filedocumented as of this encounter Visit Diagnoses Not on filedocumented in this encounter Care Teams Dowel Setting Machine Operator Relationship Specialty Start Date End Date Mily Contreras APRN, C.N.P., PCP - General Family Medicine 03/22/19 D.N.P. [address] [place] [phone] documented as of this encounter
--- OUTSIDE RECORDS SUMMARY | 2022-02-16 09:56 | XMS_ITS | Encounter Summary ---
:1970 Author Organization [facility] Address [address] [place] [address] Care Team Providers Name Role Phone Elsewhere, Pcp Primary Care Provider Unavailable Reason for Referral Outpatient (Routine) - Closed Specialty Diagnoses / Procedures Referred By Contact Refer red To Contact Diagnoses Occupational Health Examination Teresa Henderson M.D., [facility] Procedures PVM OCC Hearing screen M.P[facility] [address] [place] [address] Referral ID Status Reason Start Date Expiration Date Visits Requ ested Visits Authorized [id number] Closed 09/23/2020 09/23/2021 1 1 Reason for Visit Reason Comments Hearing Screening Bing Encounter Details Date Type Department Care Team Description 09/23/2020 Clinical Support Department of Teresa Henderson [facility] Occupational Medicine Saumya Ascencio, M .P.H. Examination (Primary in [place], [address] [facility] [place], [place] [address] [facility] [address] [place], [place] [phone] [phone] (Work) [phone] Social History Tobacco Use Types Packs/Day Years [...] y documented in this encounter Care Teams Custodial Services Manager Relationship Specialty Start Date End Date Elsewhere, Pcp PCP - General Internal Medicine 11/26/19 documented as of this encounter
--- OUTSIDE RECORDS SUMMARY | 2022-02-16 09:56 | XMS_ITS | Encounter Summary ---
:1970 Author Organization [facility] Address [address] [place] [address] Care Team Providers Name Role Phone Elsewhere, Pcp Primary Care Provider Unavailable Reason for Referral Specialty Diagnoses / Procedures Referred By Contact Refer red To Contact Lois Lopez M.D. [facility] [address] [place] [phone] Referral ID Status Reason Start Date Expiration Date Visits Requ ested Visits Authorized L CASTER Encounter Details Date Type Department Care Team Description 03/04/2021 Orders Only [facility] PCP [facility] MNT Lois Lopez M.D. [address] [place] [phone] (Wo rk) Social History Tobacco [...] filedocumented in this encounter Care Teams Yard Hand Relationship Specialty Start Date End Date Elsewhere, Pcp PCP - General Internal Medicine 11/26/19 documented as of this encounter
--- OUTSIDE RECORDS SUMMARY | 2022-02-16 09:57 | XMS_ITS | Encounter Summary ---
:1970 Author Organization [facility] Address [address] [place] [address] Care Team Providers Name Role Phone Unavailable Primary Care Provider Unavailable Encounter Details Date Type Department Care Team Description 02/28/2012 Hospital Encounter [facility]X [facility] Lars Gaines, P.A.-C. Social History [...] Lars Gaines - 02/28/2012 8:00 AM CST [id number] CLINIC ENCOUNTER Ms. Grullon is a pleasant [...] half that time was spent in direct [id number] counseling and educating the patient about her condition as well as treatment options that are available to her. HOLLY Fraire/eric cc: Source: GIO RWHXTRANSXRTFSYS Document Id: [id number] documented in this encounter Plan of Treatment Not on filedocumented as of this encounter Visit Diagnoses Not on filedocumented in this encounter
--- OUTSIDE RECORDS SUMMARY | 2022-02-16 09:57 | XMS_ITS | Encounter Summary ---
:1970 Author Organization [facility] Address [address] [place] [address] Care Team Providers Name Role Phone Unavailable Primary Care Provider Unavailable Encounter Details Date Type Department Care Team Description 10/13/[address] [facility] Severo Ruelas, P.A.-C. [address] [place] [address] (Wo rk) Social History Tobacco Use Types [...] SCHULZ P.A.-C. On: 10/17/2015 10:33 AM Source: [employer] Document Id: [id number] documented in this encounter Miscellaneous Notes Miscellaneous - Sandra Cespedes LCarineP.NCarine - 10/13/2015 7:53 AM CDT Adult Boat Crew Deck Hand Intake/History Adult Boat Crew Deck Hand Intake/History Entered On: 10/13/2015 7:56 CDT Performed [...] Information Given By : Patient Languages : Singaporean Is Patient Female and 13-50 no hysterectomy [...] CESPEDES LPN - 10/13/2015 7:53 CDT [facility] Document Id: [id number] CDT!50 documented in this encounter Plan of Treatment Not on filedocumented as of this encounter Visit Diagnoses Not on filedocumented in this encounter
--- OUTSIDE RECORDS SUMMARY | 2022-02-16 09:57 | XMS_ITS | Encounter Summary ---
:1970 Author Organization [facility] Address [address] [place] [address] Care Team Providers Name Role Phone Elsewhere, Pcp Primary Care Provider Unavailable Reason for Referral Outpatient (Routine) - Closed Specialty Diagnoses / Procedures Referred By Contact Refer red To Contact Rheumatology Diagnoses Polyarthritis Silvana Velarde C.N.P. [facility] [address] [place], [place] [address] Referral ID Status Reason Start Date Expiration Date Visits Requ ested Visits Authorized [id number] Closed 03/12/2018 03/12/2019 1 1 K DRIER TENDER Encounter Details Date Type Department Care Team Description 03/12/2018 Community Orders [facility] Silvana Velarde Tavon yarthritis [facility] Silva CCarineN.PCarine (Primary Dx) [facility] [address] [place] [phone] Social History Tobacco Use Types Packs/Day Years [...] COVID19 Pending 03/24/2020 03/25/2020 03/25/2020 11:55 PM STOCK DRIER TENDER COVID19 Pending 07/07/2020 07/07/2020 07/07/2020 9:46 PM CDT documented as of this encounter Care Teams Gear Coding Machine Operator Relationship Specialty Start Date End Date Elsewhere, Pcp PCP - General Internal Medicine 11/26/19 documented as of this encounter
--- OUTSIDE RECORDS SUMMARY | 2022-02-16 09:57 | XMS_ITS | Encounter Summary ---
:1970 Author Organization [facility] Address [address] [place] [address] Care Team Providers Name Role Phone Unavailable Primary Care Provider Unavailable Encounter Details Date Type Department Care Team Description 04/30/2012 Hospital Encounter [facility] ME April Dwyer, N.P. [address] [place] [address] [id number] (Wo rk) Social History Tobacco Use Types Packs/Day Years Used Date Smoking Tobacco: Never Assessed Sex Assigned at Date Recorded Not on file documented as of this encounter Last Filed Vital Signs Vital Sign Reading Time Taken Comments Blood Pressure 120/76 04/30/2012 7:59 AM [employer]IP[employer]ACHINE Pulse 76 04/30/2012 7:59 AM [employer] Temperature - - Respiratory Rate 16 04/30/2012 7:59 AM [employer]ACHINE Oxygen Saturation - - Inhaled Oxygen Concentration - - Weight 101 kg (222 lb 0.1 oz) 04/30/2012 7:59 AM [employer] Height - - Body Mass Index 38.85 03/19/2012 9:08 AM [employer] documented in this encounter Medications at Time of Discharge Medication Sig Dispensed Refills Start Date End Date IBUPROFEN ORAL Take by mouth as needed. 0 011 documented as of this encounter Progress Notes Nieves Dwyer, N.P. - 04/30/2012 7:51 AM CST [id number] CHIEF COMPLAINT/REASON FOR VISIT Chest cold. HISTORY [...] Chanel Zaragoza/amanda Electronically Signed By: NIEVES DWYER FIRMWARE ARCHITECT On: 05/06/2012 11:31 AM Source: [facility] [id number] Document Id: [id number] [employer]UT[employer] MACH[employer] documented in this encounter Miscellaneous Notes Miscellaneous - Nieves Dwyer N.P. - 04/30/2012 8:28 AM CST Ambulatory Patient Summary [id number] [place] [address] Visit Information Name: CANDY GRULLON [facility] Number: [id number] Current Date: 04/30/2012 08:28:43 Physicians Attending Provider: NIEVES DWYER NP Primary Care Provider: WILLEM SAEED RN, SALESPERSON SHOES Your Medications Here is a list of [...] BARRERA, Lars Davis Your Goals/Additional instructions: Source: [facility] POWERCHART Document Id: [id number] [employer]ACHINE Miscellkatie - Nieves Dwyer N.P. - 04/30/2012 8:28 AM CST Ambulatory Depart Summary [id number] [place] [address] Visit Information Name: CANDY GRULLON [facility] Number: [id number] Visit Date: 04/30/2012 08:28:43 Attending Provider: NIEVES DWYER FIRMWARE ARCHITECT Primary Care Provider: WILLEM SAEED RN, SALESPERSON SHOES CANDY GRULLON has been given the following [...] provider for clarification. Additional Information: Source: [facility] POWERCHART Document Id: [id number] PPER CUTTER MACHINE Abbeycellkatie - Nieves Dwyer N.P. - 04/30/2012 8:26 AM CST School or Work Excuse School or Work Excuse Entered On: 04/30/2012 8:27 [employer] Performed On: 04/30/2012 8:26 [employer]ACH[employer] by NIEVES DWYER NP School or Work Excuse Date Patient Seen : 04/30/2012 [employer]ACH[employer] Date of Return to School/Work Without Restrictions : 04/30/2012 [employer]ACH[employer] Comment : Candy was seen today for bronchitis. NIEVES DWYER NP - 04/30/2012 8:26 [employer]IP[employer]ACHINE Source: [facility] [place] POWERCHART Document Id: [id number] PPER CUTTER MACHINE Miscellaneous - Johnnie Sher LCarinePCarineN. - 04/30/2012 7:59 AM CST Adult Cook Night Intake/History Adult Cook Night Intake/History Entered On: 04/30/2012 8:03 [employer]ACHINE Performed On: 04/30/2012 7:59 [employer]IP[employer]ACHINE by JOHNNIE SHER LPN Intake Chief Complaint [...] 100.70kg JOHNNIE SHER LPN - 04/30/2012 7:59 [employer]IP[employer]ACHINE Subjective Pain Symptoms : No JOHNNIE SHER LPN - 04/30/2012 7:59 [employer]IP[employer] MACHINE Dependent Habits Tobacco Use/Currently Using : Yes Exposure to Tobacco Smoke : Patient smokes Smoking Status : Current some day smoker JOHNNIE SHER LPN - 04/30/2012 7:59 [employer]ACHINE Tobacco Use Grid Type : Cigarettes Cigarette Use Packs/Day : 0.5 JOHNNIE SHER LPN - 04/30/2012 7:59 [employer]IP[employer]ACHINE Alcohol Use : Yes JOHNNIE SHER LPN - 04/30/2012 7:59 [employer]ACHINE Caffeine Use Grid Caffeine Use : Current Type : Soft drinks Frequency : Daily JOHNNIE SHER LPN - 04/30/2012 7:59 [employer]IP[employer]ACHINE Recreational Drug Use Grid Drug Use : None JOHNNIE SHER LPN - 04/30/2012 7:59 [employer]IP[employer] C[employer] MACHINE Allergy Allergies (Active) Demerol HCl Estimated Onset Date: Unspecified ; Created By: WADE DAIGLE LPN; Reaction Status: Active ; Category: Drug ; Substance: Demerol HCl ; Type: Allergy ; Updated By: WADE DAIGLE LPN;Reviewed Date: 04/02/2012 10:16 [employer]ACHINE hydrocodone-acetaminophen Estimated Onset Date: Unspecified ; Created By: MICHELLE JOHNSON RN; Reaction Status: Active ; Category: Drug ; Substance: hydrocodone-acetaminophen ; Type: Allergy ; Severity: Severe ; Updated By: MICHELLE JOHNSON RN; Source: Patient ; Reviewed Date: 04/02/2012 10:16 [employer]IPPER CUTTER MACHINE Source: [facility] [place] POWERCHART Document Id: [id number] PPER CUTTER MACHINE Miscellaneous - Johnnie Sher L.P.N. - 04/30/2012 7:59 AM CST Health Assessment Health Assessment Entered On: 04/30/2012 8:04 [employer]IP[employer] MACHINE Performed On: 04/30/2012 7:59 [employer]IP[employer] C[employer]TER MACHINE by JOHNNIE SHER LPN Health Assessment Complete Health Assessment Complete or Modified : Annual Health Assessment Annual Health Assessment Completed : Yes JOHNNIE SHER LPN - 04/30/2012 7:59 [employer]IP[employer] C[employer] MACHINE Nutrition Nutrition Risk Factors by History Adult : None JOHNNIE SHER LPN - 04/30/2012 7:59 [employer]IP[employer] C[employer] MACHINE Functional Current Daily Living Assistance : None JOHNNIE SHER LPN - 04/30/2012 7:59 [employer]IP[employer] MACHINE Dependent Habits Tobacco Use/Currently Using : Yes Exposure to Tobacco Smoke : Patient smokes Smoking Status : Current some day smoker JOHNNIE SHER LPN - 04/30/2012 7:59 [employer]IP[employer] MACHINE Tobacco Use Grid Type : Cigarettes Cigarette Use Packs/Day : 0.5 JOHNNIE SHER LPN - 04/30/2012 7:59 [employer]IP[employer] MACHINE Alcohol Use : Yes JOHNNIE SHER LPN - 04/30/2012 7:59 [employer]IP[employer] C[employer] MACHINE Caffeine Use Grid Caffeine Use : Current Type : Soft drinks Frequency : Daily JOHNNIE SHER TRAPPER BIRD - 04/30/2012 7:59 STRIPPER C[employer]TER MACHINE Recreational Drug Use Grid Drug Use : None JOHNNIE SHER LPN - 04/30/2012 7:59 STRIPPER CUTTER MACHINE AUDIT Tool How Often Do You Have A Drink : 2 to 4 times a month How Many Drinks in a Day When Drinking : 1 or 2 Six or More Drinks On One Occassion : Never Audit Phase 1 Score : 2 JOHNNIE SHER LPN - 04/30/2012 7:59 [employer]IP[employer] MACHINE Psychosocial Domestic Abuse Concerns : None JOHNNIE SHER TRAPPER BIRD - 04/30/2012 7:59 STRIPPER CUTTER MACHINE Advance Directive Advanced Directives : Yes JOHNNIE SHER TRAPPER BIRD - 04/30/2012 7:59 STRIPPER C[employer]TER MACHINE Educ Needs Learning Style Preference Adult Grid Patient : None Family : None JOHNNIE SHER TRAPPER BIRD - 04/30/2012 7:59 STRIPPER CUTTER MACHINE Source: [facility] [place] POWERCHART Document Id: [id number] PPER CUTTER MACHINE documented in this encounter Plan of Treatment Not on filedocumented as of this encounter Visit Diagnoses Not on filedocumented in this encounter
--- OUTSIDE RECORDS SUMMARY | 2022-02-16 09:57 | XMS_ITS | Encounter Summary ---
:1970 Author Organization [facility] Address [address] [place] [address] Care Team Providers Name Role Phone Isabelle Henderson APRN, C.N.P. Primary Care Provider [phone] Encounter Details Date Type Department Care Team Description 05/28/2017 Orders Only Department of Family Isabelle Henderson For Screening For Cardiovascular Disorders (Primary Dx); MedicineChuy APRN, C.N.P. Screening Examination Diabetes Mellitus; [facility], [address] Screening Mammogram [facility] [id number] [phone] [place], [place] (Work) [phone] Social History Tobacco Use [...] Patient documented in this encounter Care Teams Membership Manager Relationship Specialty Start Date End Date Isabelle Henderson APRN, C.N.P. PCP - General 10/05/16 08/17/17 documented as of this encounter
--- OUTSIDE RECORDS SUMMARY | 2022-02-16 09:57 | XMS_ITS | Encounter Summary ---
:1970 Author Organization [facility] Address [address] [place] [address] Care Team Providers Name Role Phone Unavailable Primary Care Provider Unavailable Encounter Details Date Type Department Care Team Description 03/19/2012 Hospital Encounter HX [facility] SURGERY Craig Michaud M.D. [address] [place] [address] (Wo rk) Social History Tobacco Use Types Packs/Day Years Used Date Smoking Tobacco: Never Assessed Sex Assigned at Date Recorded Not on file documented as of this encounter Last Filed Vital Signs Vital Sign Reading Time Taken Comments Blood Pressure 118/58 03/19/2012 12:33 PM MEAT CUTTER APPRENTICE Pulse 89 03/19/2012 12:33 PM MEAT CUTTER APPRENTICE Temperature - - Respiratory Rate 16 03/19/2012 11:15 AM MEAT CUTTER APPRENTICE Oxygen Saturation - - Inhaled Oxygen Concentration - - Weight - - Height 161 cm (5' 3.39) 03/19/2012 9:08 AM MEAT CUTTER APPRENTICE Body Mass Index - - documented in this encounter Medications at Time of Discharge Medication Sig Dispensed Refills Start Date End Date IBUPROFEN ORAL Take by mouth as needed. 0 011 documented as of this encounter Procedure Notes Rosalina Wesley, R.N. - 03/19/2012 9:08 AM CST Preprocedure Checklist Preprocedure Checklist Entered On: 03/19/2012 9:15 MEAT CUTTER APPRENTICE Performed On: 03/19/2012 9:08 MEAT CUTTER APPRENTICE by ROSALINA WESLEY RN Checklist Last Fluid Intake : 03/18/2012 23:00 MEAT CUTTER APPRENTICE Last Food Intake : 03/18/2012 20:00 MEAT CUTTER APPRENTICE Status : Patient denies ROSALINA WESLEY RN - 03/19/2012 9:08 MEAT CUTTER APPRENTICE Surgery Prep Grid Contacts/Glasses Removed : Yes Preop Scrub Night Prior to Surgery : Yes Prosthesis Removed : NA Surgical Prep Verified : Yes Tampon Removed : NA Wearing Patient Gown : Yes Voided on air personality to procedure : Yes Dentures Removed : NA Hairpins/Hairpiecies Removed : NA Hearing Aid Removed : NA Home Prep Complete : NA Jewelry/Piercing Removed : NA Makeup/Nail Wolof Removed : NA Oral Hygiene : NA Preop Scrub AM of Surgery : Yes ROSALINA WESLEY RN - 03/19/2012 9:08 MEAT CUTTER APPRENTICE Surgical Preparation : N/A ROSALINA WESLEY RN - 03/19/2012 9:08 MEAT CUTTER APPRENTICE Patient Rights Grid Blood Consent Signed : NA Surgical/Procedure Consent Signed : Yes ROSALINA WESLEY RN - 03/19/2012 9:08 MEAT CUTTER APPRENTICE Family Location : mom and sister waiting in hospital ROSALINA WESLEY RN - 03/19/2012 9:08 MEAT CUTTER APPRENTICE Checklist II Patient Safety Grid Allergy Band [...] : ROSALINA PHELPS RN - 03/19/2012 9:08 MEAT CUTTER APPRENTICE RN Who Verified Site : ROSALINA WESLEY RN Physician Who Verified Site : CIRO MICHAUD MD, GWYNNE A RN - 03/19/2012 9:08 MEAT CUTTER APPRENTICE GINGER Screening Known Obstructive Sleep Apnea : No Uses Home CPAP/BiPAP : No Risk for Sleep Apnea : No ROSALINA WESLEY RN - 03/19/2012 9:08 MEAT CUTTER APPRENTICE GINGER Assessment Do you have high blood pressure or have you been told to take medication for high blood pressure? : No Frequency of Snoring : Rarely (1-2 times per year) Frequency of Gasping, Choking, Snorting : Never Neck Circumference (cm) : 42/43 Total Sleep Apnea Clinical Score : 5 Total Number of Historical Features : 0 ROSALINA WESLEY RN - 03/19/2012 9:08 MEAT CUTTER APPRENTICE Valuables/Belongings Valuables/Belongings Grid Valuables at Bedside Clothes, Patient Valuables : Pants, Shirt, Shoes ROSALINA WESLEY RN - 03/19/2012 9:08 MEAT CUTTER APPRENTICE Room Orientation/Facility Policy Reviewed : Yes Home Medication Disposition : None brought in with patient ILSA-PFROSALINA JARVIS RN - 03/19/2012 9:08 MEAT CUTTER APPRENTICE Education Preprocedure Education Grid Procedure Type : as above Education Topics : Anesthesia/Sedation, Plan of care Individuals Taught : Patient, Parent, Sibling Barriers to Learning : None evident Teaching Method : Explanation Teaching Evaluation : Verbalizes understanding ILSAROSALINA WEISS RN - 03/19/2012 9:08 MEAT CUTTER APPRENTICE Preop Holding Mode of Arrival : Ambulatory Preoperative Orders Complete : Yes ROSALINA WESLEY RN - 03/19/2012 9:08 MEAT CUTTER APPRENTICE Advance Directive Advanced Directives : Yes ROSALINA WESLEY RN - 03/19/2012 9:08 MEAT CUTTER APPRENTICE Vital Signs Temperature Core : 37.2C(Converted to: [...] 212.74lb ILSAROSALINA WEISS RN - 03/19/2012 9:08 MEAT CUTTER APPRENTICE Allergy Allergies (Active) Demerol HCl Estimated Onset Date: Unspecified ; Created By: WADE DAIGLE LPN; Reaction Status: Active ; Category: Drug ; Substance: Demerol HCl ; Type: Allergy ; Updated By: WADE DAIGLE LPN;Reviewed Date: 03/06/2012 11:00 MEAT CUTTER APPRENTICE Preprocedural Pause Correct Patient Identity : Patient verbalizes self, Patient wristband ID, Family/responsible constitution party ID, Patient verbalizes Correct Procedure Site and Side : left knee arthroscopy with partial meniscectomy Correct Procedure Site/Side Verified By : Patient/responsible constitution party, Nurse, MD Site Marking : Yes Pre-Procedure Pause Verbal Confirm. of : Procedure, Site, Side, Patient Position, Patient ID ROSALINA WESLEY RN - 03/19/2012 9:08 MEAT CUTTER APPRENTICE Source: [employer] Document Id: [id number] CUTTER APPRENTICE documented in this encounter Nursing Notes Rosalina Wesley RClinton - 03/19/2012 9:01 AM CST Day Surgery Admission History/Asmt Adult Document Has Been Updated Day Surgery Admission History/Asmt Adult Entered On: 03/19/2012 9:07 MEAT CUTTER APPRENTICE Performed On: 03/19/2012 9:01 MEAT CUTTER APPRENTICE by ROSALINA WESLEY RN General Info Preferred Name : Candy Mode of Arrival : Ambulatory Accompanied By : Alone, Mother, Sibling Chief Complaint : left knee scope Preferred Communication Mode : Verbal Information Given By : Patient Languages : Citizen Of [place] Status : Patient denies Have you received chemotherapy in last 48 hours? : No ROSALINA WESLEY RN - 03/19/2012 9:01 MEAT CUTTER APPRENTICE Allergy Allergies (Active) Demerol HCl Estimated Onset Date: Unspecified ; Created By: WADE DAIGLE LPN; Reaction Status: Active ; Category: Drug ; Substance: Demerol HCl ; Type: Allergy ; Updated By: WADE DAIGLE LPN;Reviewed Date: 03/06/2012 11:00 MEAT CUTTER APPRENTICE Anesth/Transfusion Anesthesia/Transfusions : Prior anesthesia ROSALINA WESLEY RN - 03/19/2012 9:01 MEAT CUTTER APPRENTICE ID Screen Drug Resistant Organism : No TAIKEY JAMESYNMICHAELLE Davis - 03/19/2012 9:01 MEAT CUTTER APPRENTICE Nutrition Nutrition Risk Factors by History Adult : None Home Diet : Regular Feeding Ability : Complete independence Eating Difficulties : None Appetite : Excellent BÁRBARAKEY JARVISYNMICHAELLE Davis - 03/19/2012 9:01 MEAT CUTTER APPRENTICE Home Environment Current Daily Living Assistance : None Living Situation : Home independently Home Equipment : None Sensory Deficits : None Mobility Assistance Prior to Admission : Independent Current Home Treatments : None Professional Skilled Services : None Special Services and Community Resources : None TAIROSALINA JAMES - 03/19/2012 9:01 MEAT CUTTER APPRENTICE Dependent Habits Tobacco Use/Currently Using : Yes Tobacco Use/Advised to Quit : Yes Exposure to Tobacco Smoke : Patient smokes Smoking Status : Current every day smoker ILSAROSALINA WEISS - 03/19/2012 9:01 MEAT CUTTER APPRENTICE Tobacco Use Grid Type : Cigarettes Cigarette Use Packs/Day : 0.5 ROSALINA WESLEY - 03/19/2012 9:01 MEAT CUTTER APPRENTICE Alcohol Use : Yes ROSALINA WESLEY - 03/19/2012 9:01 MEAT CUTTER APPRENTICE Caffeine Use Grid Caffeine Use : Current Type : Soft drinks Frequency : Daily ROSALINA WESLEY - 03/19/2012 9:01 MEAT CUTTER APPRENTICE Recreational Drug Use Grid Drug Use : None ILSAROSALINA WEISS - 03/19/2012 9:01 MEAT CUTTER APPRENTICE AUDIT Tool How Often Do You Have A Drink : 2 to 3 times a week How Many Drinks in a Day When Drinking : 1 or 2 Six or More Drinks On One Occassion : Never Audit Phase 1 Score : 3 ILSAROSALINA WEISS - 03/19/2012 9:01 MEAT CUTTER APPRENTICE Psychosocial Adult Domestic Abuse Concerns : None ROSALINA WESLEY - 03/19/2012 9:01 MEAT CUTTER APPRENTICE Advance Directive Advanced Directives : Yes ROSALINA WESLEY - 03/19/2012 9:01 MEAT CUTTER APPRENTICE Educ Needs Patient/Family Education Needs : Plan of care ROSALINA WESLEY - 03/19/2012 9:01 MEAT CUTTER APPRENTICE Learning Style Preference Adult Grid Patient : Verbal explanation Family : Verbal explanation ROSALINA WESLEY RN - 03/19/2012 9:01 MEAT CUTTER APPRENTICE Education Preprocedure Education Grid Procedure Type : left knee scope with partial meniscectomy Education Topics : Anesthesia/Sedation, Plan of care Individuals Taught : Patient, Parent, Sibling Barriers to Learning : None evident Teaching Method : Explanation Teaching Evaluation : Verbalizes understanding ROSALINA WESLEY RN - 03/19/2012 9:01 MEAT CUTTER APPRENTICE Outpatient Assessment Procedural Respiratory : Respirations unlabored, Respiratory pattern regular, Breath sounds clear all lobes Procedural Cardiovascular : Heart rhythm regular Procedural Neurological : Alert, Oriented x 3, Gait steady Procedural Gastrointestinal : Abdomen non-tender and soft Procedural Genitourinary : Voiding, no difficulties Procedural Integumentary : Skin integrity intact Procedural Musculoskeletal : Activity tolerance without distress ROSALINA WESLEY RN - 03/19/2012 9:01 MEAT CUTTER APPRENTICE Psycho/Emotional Pain Symptoms : No Affect/Behavior : Calm, Cooperative, Appropriate ROSALINA WESLEY RN - 03/19/2012 9:01 MEAT CUTTER APPRENTICE Peripheral IV Peripheral IV Assess/Intervention Grid Peripheral IV #1 IV Activity : Start Number of Attempts : 4 ROSALINA WESLEY RN - 03/19/2012 9:51 MEAT CUTTER APPRENTICE Date of Insertion : 03/19/2012 MEAT CUTTER APPRENTICE IV Site : Hand Laterality : Left Catheter Size : 20 Catheter Type : Over the needle ROSALINA WESLEY RN - 03/19/2012 9:51 MEAT CUTTER APPRENTICE Site Condition : No complications Drainage Description : None Infiltration Score : 0 Phlebitis Score : 0 Flow/ Patency : No complications ROSALINA WESLEY RN - 03/19/2012 9:01 MEAT CUTTER APPRENTICE Regino Sensory Perception Regino : No impairment Moisture Regino : Rarely moist Activity Regino : Walks frequently Mobility Regino : No limitations Nutrition Regino : Excellent Friction and Shear Regino : No apparent problem Regino Score : 23 ROSALINA WESLEY RN - 03/19/2012 9:01 MEAT CUTTER APPRENTICE Hendrich II Fall Risk Confusion/Disorientation Hendrich : [...] 0 ROSALINA WESLEY RN - 03/19/2012 9:01 MEAT CUTTER APPRENTICE DC Needs Anticipated Discharge Date : 03/19/2012 MEAT CUTTER APPRENTICE Discharge To, Anticipated : Home independently Home Treatments, Anticipated : None Home Equipment, Anticipated : None Professional Skilled Services, Anticipated : None Special Serv & Comm Res, Anticipated : None Needs Assistance with Transportation : No Needs Assistance at Home Upon Discharge : No ROSALINA WESLEY RN - 03/19/2012 9:01 MEAT CUTTER APPRENTICE FLACC Face FLACC : No particular expression or smile Legs FLACC : Normal position or relaxed Activity FLACC : Lying quietly, normal position, moves easily Cry FLACC : No cry, awake or asleep Consolabillity FLACC : Content, relaxed FLACC Pain Scale Score : 0 ROSALINA WESLEY - 03/19/2012 9:01 MEAT CUTTER APPRENTICE Urinary Catheter Urinary Catheter Activity Type : Other: none ROSALINA WESLEY - 03/19/2012 9:08 MEAT CUTTER APPRENTICE Integumentary Integumentary Patient Stated Symptoms : None Skin Turgor : Elastic Skin Integrity : Intact Mucous Membrane Color : [place] Mucous Membrane Description : Moist Skin Color : Normal for ethnicity Skin Description : Dry Skin Temperature : Warm ROSALINA WESLEY RN - 03/19/2012 9:08 MEAT CUTTER APPRENTICE [facility] Document Id: [id number] CUTTER APPRENTICE documented in this encounter OR Notes Op Note - Ciro Michaud M.D. - 03/19/2012 12:00 AM CST [id number] PREOPERATIVE DIAGNOSIS: Right knee medial meniscus tear. [...] MICHAUD MD On: 04/09/2012 03:37 PM Source: [facility] [id number] Document Id: [id number] CUTTER APPRENTICE documented in this encounter Miscellaneous Notes Miscellaneous - Nataliia Elmore, R.N. - 03/19/2012 12:33 PM CST Adult Postprocedure Assessment Document Has Been Updated Adult Postprocedure Assessment Entered On: 03/19/2012 12:42 MEAT CUTTER APPRENTICE Performed On: 03/19/2012 12:33 MEAT CUTTER APPRENTICE by NATALIIA ELMORE RN Vital Signs Temperature Core : 36.5C(Converted to: 97.7DegF) Peripheral Pulse Rate : 89/min Systolic Blood Pressure : 118mmHg Diastolic Blood Pressure : 58mmHg NIBP Mean : 78mmHg BP Location : Right upper extremity SpO2 : 99% Oxygen Saturation Monitoring Frequency : Continuous Oxygen Therapy : Room air NATALIIA ELMORE RN - 03/19/2012 12:33 MEAT CUTTER APPRENTICE General Level of Consciousness : Alert Orientation : Oriented x 3 Skin Color : Normal for ethnicity Skin Description : Dry Skin Temperature : Warm Pain Symptoms : No NATALIIA ELMORE RN - 03/19/2012 12:33 MEAT CUTTER APPRENTICE FLACC Face FLACC : No particular expression or smile Legs FLACC : Normal position or relaxed Activity FLACC : Lying quietly, normal position, moves easily Cry FLACC : No cry, awake or asleep Consolabillity FLACC : Content, relaxed FLACC Pain Scale Score : 0 NATALIIA ELMORE RN - 03/19/2012 12:33 MEAT CUTTER APPRENTICE Cardiovascular Nail Bed Color : [place] NATALIIA ELMORE - 03/19/2012 12:33 MEAT CUTTER APPRENTICE Respiratory Anesthesia Type : Block, Spinal NATALIIA ELMORE 03/19/2012 15:13 MEAT CUTTER APPRENTICE Respiratory Pattern : Regular Respirations : Unlabored All Lobes Breath Sounds : Clear NATALIIA ELMORE - 03/19/2012 12:33 MEAT CUTTER APPRENTICE GI/ Nausea Symptoms : No NATALIIA ELMORE - 03/19/2012 12:33 MEAT CUTTER APPRENTICE Integumentary Integumentary Patient Stated Symptoms : None Skin Turgor : Elastic Skin Integrity : Not intact Mucous Membrane Color : [place] Mucous Membrane Description : Moist Skin Color : Normal for ethnicity Skin Description : Dry Skin Temperature : Warm NATALIIA ELMORE - 03/19/2012 12:33 MEAT CUTTER APPRENTICE Incision/Wound Incision/Wound Care Grid Activity : Assessed Type : Other: arthroscopy Location : Knee Laterality : Left Description : NATALIIA Black 03/19/2012 12:33 MEAT CUTTER APPRENTICE Peripheral IV Peripheral IV Assess/Intervention Grid Peripheral IV #1 IV Activity : Discontinue Number of Attempts : 4 Date of Insertion : 03/19/2012 MEAT CUTTER APPRENTICE IV Site : Hand Laterality : Left Catheter Size : 20 Catheter Type : Over the needle Site Condition : No complications Drainage Description : None Infiltration Score : 0 Phlebitis Score : 0 NATALIIA ELMORE Susan 03/19/2012 12:33 MEAT CUTTER APPRENTICE I&O Oral Intake : 200mL Other Intake : 50mL NATALIIA ELMORE 03/19/2012 12:33 MEAT CUTTER APPRENTICE Neurologic Swallowing Difficulty/Aspiration Risk : None Extremity Movement : Equal Facial Symmetry : Symmetric Characteristics of Speech : Appropriate for age NATALIIA ELMORE 03/19/2012 12:33 MEAT CUTTER APPRENTICE Lower Extremity Nail Bed Color Feet Grid Left Foot : [place] Right Foot : [place] NATALIIA ELMORE 03/19/2012 12:33 MEAT CUTTER APPRENTICE Capillary Refill Feet Grid Left Foot : < 2 seconds Right Foot : < 2 seconds NATALIIA ELMORE Susan 03/19/2012 12:33 MEAT CUTTER APPRENTICE NV Lower Extremity Color Grid Left : [place] Right : [place] NATALIIA ELMORE 03/19/2012 12:33 MEAT CUTTER APPRENTICE NV Lower Extremity Temperature Grid Left : Warm Right : Warm NATALIIA ELMORE 03/19/2012 12:33 MEAT CUTTER APPRENTICE Lower Extremity Peripheral Pulses Grid Popliteal Pulse, Left : 2+ Normal Popliteal Pulse, Right : 2+ Normal Posttibial Pulse, Left : 2+ Normal Posttibial Pulse, Right : 2+ Normal Dorsalis Pedis Pulse, Left : 2+ Normal Dorsalis Pedis Pulse, Right : 2+ Normal NATALIIA ELMORE 03/19/2012 12:33 MEAT CUTTER APPRENTICE Lower Extremity Sensation NV Grid Medial/Lateral Surfaces Sole of Left Foot : Intact Medial/Lateral Surfaces Sole of Right Foot : Intact Web Space Between Great and Second Toe Left Foot : Intact Web Space Between Great and Second Toe Right Foot : Intact NATALIIA ELMORE 03/19/2012 12:33 MEAT CUTTER APPRENTICE Lower Extremity Strength NV Grid Plantar Flexion Left Foot : Zero 0 Plantar Flexion Right Foot : Zero 0 Dorsiflex Foot/Extend Toes Left : Zero 0 Dorsiflex Foot/Extend Toes Right : Zero 0 YOANDYNATALIIA 03/19/2012 12:33 MEAT CUTTER APPRENTICE Upper Extremity Nail Bed Color Hands Grid Left Hand : [place] Right Hand : [place] NATALIIA ELMORE 03/19/2012 12:33 MEAT CUTTER APPRENTICE Capillary Refill Hand Grid Left Hand : < 2 seconds Right Hand : < 2 seconds YOANDY NATALIIA Susan 03/19/2012 12:33 MEAT CUTTER APPRENTICE Upper Extremity Color Grid Left : [place] Right : [place] NATALIIA ELMORE 03/19/2012 12:33 MEAT CUTTER APPRENTICE Upper Extremity Temperature Grid Left : Warm Right : Warm NATALIIA ELMORE 03/19/2012 12:33 MEAT CUTTER APPRENTICE NV Upper Extremity Pulses Grid Radial Pulse, Left : 2+ Normal Radial Pulse, Right : 2+ Normal NATALIIA ELMORE 03/19/2012 12:33 MEAT CUTTER APPRENTICE PARSAP Activity Status : Moves 4 extremities [...] Score : 20 NATALIIA ELMORE 03/19/2012 12:33 MEAT CUTTER APPRENTICE Johnson Johnson Agitation Sedation Scale (RASS) : Alert and calm RASS Score : 0 YOANDYNATALIIA 03/19/2012 12:33 MEAT CUTTER APPRENTICE Regino Sensory Perception Regino : No impairment Moisture Regino : Rarely moist Activity Regino : Walks frequently Mobility Regino : No limitations Nutrition Regino : Adequate Friction and Shear Regino : No apparent problem Regino Score : 22 NATALIIA ELMORE RN - 03/19/2012 12:33 MEAT CUTTER APPRENTICE Hendrich II Fall Risk Confusion/Disorientation Hendrich : [...] 2 NATALIIA ELMORE RN - 03/19/2012 12:33 MEAT CUTTER APPRENTICE Education General Patient Education [employer] Topics : Activity limitations/expectations, Discharge instructions/Medication list, Medication dosage, route, scheduling, Pain Management, Physical limitations, Printed materials, Safety, fall, Smokingcessation, Use of pain scale(s), When to call health care provider Individuals Taught : Patient Barriers to Learning : None evident Teaching Method : Explanation, Printed materials Teaching Evaluation : Verbalizes understanding NATALIIA ELMORE RN - 03/19/2012 12:33 MEAT CUTTER APPRENTICE [facility] Document Id: [id number] CUTTER APPRENTICE Miscellaneous - Guillermina White RCarineNCarine - 03/19/2012 12:20 PM CST Inpatient Patient Education The following Patient Education Materials have been given to the patient: Patient Education Materials: Custom Discharge Instructions - Adult (Custom) Custom [id number] Discharge Instructions (Adults)HOME CARE FOLLOWING Left knee [...] OR CALL THE PATIENT ADVISORY NURSE AT [phone] OR EMERGENCY ROOM AT [phone], ext: [phone]. ext: surgical services [phone], med-surge [phone] Physician: with Lars SANCHES Office: You may receive a Customer Satisfaction survey in the mail from [employer]. If you receive this survey, we would ask that you take the time to complete it and return it. Your comments and suggestions are important to us; we are always looking for ways to improve the service we provide. Thank you for choosing [facility]. It was a pleasure to serve you. Source: [facility] [employer]OWERCHART Document Id: [id number] CUTTER APPRENTICE Miscellaneous - Nataliia Elmore R.N. - 03/19/2012 12:05 PM CST Adult Postprocedure Assessment Document Has Been Updated Adult Postprocedure Assessment Entered On: 03/19/2012 12:17 MEAT CUTTER APPRENTICE Performed On: 03/19/2012 12:05 MEAT CUTTER APPRENTICE by NATALIIA ELMORE RN Vital Signs Temperature Core : 36.2C(Converted to: 97.2DegF) (LOW) Peripheral Pulse Rate : 76/min Systolic Blood Pressure : 125mmHg Diastolic Blood Pressure : 71mmHg NIBP Mean : 89mmHg BP Location : Right upper extremity SpO2 : 98% Oxygen Saturation Monitoring Frequency : Continuous Oxygen Therapy : Room air NATALIIA ELMORE RN - 03/19/2012 12:05 MEAT CUTTER APPRENTICE General Level of Consciousness : Alert Orientation : Oriented x 3 Skin Color : Normal for ethnicity Skin Description : Dry Skin Temperature : Warm Pain Symptoms : No NATALIIA ELMORE RN - 03/19/2012 12:05 MEAT CUTTER APPRENTICE FLACC Face FLACC : No particular expression or smile Legs FLACC : Normal position or relaxed Activity FLACC : Lying quietly, normal position, moves easily Cry FLACC : No cry, awake or asleep Consolabillity FLACC : Content, relaxed FLACC Pain Scale Score : 0 NATALIIA ELMORE RN - 03/19/2012 12:05 MEAT CUTTER APPRENTICE Cardiovascular Nail Bed Color : [place] Capillary Refill : Less than 2 seconds Antiembolism Device : Sequential Compression Device Antiembolism Device Laterality : Right NATALIIA ELMORE RN - 03/19/2012 12:05 MEAT CUTTER APPRENTICE Respiratory Anesthesia Type : Block, Spinal NATALIIA ELMORE RN - 03/19/2012 15:13 MEAT CUTTER APPRENTICE Airway Type : None Respiratory Pattern : Regular Respirations : Unlabored All Lobes Breath Sounds : Clear Oxygen Discontinuation : 03/19/2012 12:07 MEAT CUTTER APPRENTICE NATALIIA ELMORE RN - 03/19/2012 12:05 MEAT CUTTER APPRENTICE Integumentary Integumentary Patient Stated Symptoms : None Skin Turgor : Elastic Skin Integrity : Not intact Mucous Membrane Color : [place] Mucous Membrane Description : Moist Skin Color : Normal for ethnicity Skin Description : Dry Skin Temperature : Warm NATALIIA ELMORE 03/19/2012 12:05 MEAT CUTTER APPRENTICE Incision/Wound Incision/Wound Care Grid Activity : Assessed Type : Other: arthroscopy Location : Knee Laterality : Left Description : Dry NATALIIA ELMORE 03/19/2012 12:05 MEAT CUTTER APPRENTICE Peripheral IV Peripheral IV Assess/Intervention Grid Peripheral IV #1 IV Activity : Assessment Number of Attempts : 4 Date of Insertion : 03/19/2012 MEAT CUTTER APPRENTICE IV Site : Hand Laterality : Left Catheter Size : 20 Catheter Type : Over the needle Site Condition : No complications Drainage Description : None NATALIIA ELMORE 03/19/2012 12:05 MEAT CUTTER APPRENTICE I&O Other Intake : 300mL YOANDY NATALIIA Davis 03/19/2012 12:05 MEAT CUTTER APPRENTICE Nutrition Lunch : 100% YOANDYNATALIIA 03/19/2012 12:05 MEAT CUTTER APPRENTICE Neurologic Swallowing Difficulty/Aspiration Risk : None Extremity Movement : Unequal Facial Symmetry : Symmetric Characteristics of Speech : Appropriate for age NATALIIA ELMORE 03/19/2012 12:05 MEAT CUTTER APPRENTICE Neurological Strengths Grid Left Lower Extremity Strength : Weak NATALIIA ELMORE 03/19/2012 12:05 MEAT CUTTER APPRENTICE Lower Extremity Nail Bed Color Feet Grid Left Foot : [place] Right Foot : [place] ANTALIIA ELMORE 03/19/2012 12:05 MEAT CUTTER APPRENTICE Capillary Refill Feet Grid Left Foot : < 2 seconds Right Foot : < 2 seconds NATALIIA ELMORE 03/19/2012 12:05 MEAT CUTTER APPRENTICE NV Lower Extremity Color Grid Left : [place] Right : [place] NATALIIA ELMORE 03/19/2012 12:05 MEAT CUTTER APPRENTICE NV Lower Extremity Temperature Grid Left : Warm Right : Warm NATALIIA ELMORE 03/19/2012 12:05 MEAT CUTTER APPRENTICE Lower Extremity Peripheral Pulses Grid Popliteal Pulse, Left : 2+ Normal Popliteal Pulse, Right : 2+ Normal Posttibial Pulse, Left : 2+ Normal Posttibial Pulse, Right : 2+ Normal Dorsalis Pedis Pulse, Left : 2+ Normal Dorsalis Pedis Pulse, Right : 2+ Normal NATALIIA ELMORE 03/19/2012 12:05 MEAT CUTTER APPRENTICE Lower Extremity Sensation NV Grid Medial/Lateral Surfaces Sole of Left Foot : Absent, Intact Medial/Lateral Surfaces Sole of Right Foot : [place]ing[place], Intact Web Space Between Great and Second Toe Left Foot : Absent, Intact Web Space Between Great and Second Toe Right Foot : Tingling NATALIIA ELMORE RN - 03/19/2012 12:05 MEAT CUTTER APPRENTICE Lower Extremity Strength NV Grid Plantar Flexion Left Foot : Zero 0 Plantar Flexion Right Foot : Zero 0 Dorsiflex Foot/Extend Toes Left : Zero 0 Dorsiflex Foot/Extend Toes Right : Zero 0 NATALIIA ELMORE RN - 03/19/2012 12:05 MEAT CUTTER APPRENTICE PARSAP Activity Status : Moves 4 extremities [...] assessed NATALIIA ELMORE RN - 03/19/2012 12:05 MEAT CUTTER APPRENTICE Johnson Johnson Agitation Sedation Scale (RASS) : Alert and calm RASS Score : 0 NATALIIA ELMORE RN - 03/19/2012 12:05 MEAT CUTTER APPRENTICE Regino Sensory Perception Regino : No impairment Moisture Regino : Rarely moist Activity Regino : Walks frequently Mobility Regino : No limitations Nutrition Regino : Adequate Friction and Shear Regino : No apparent problem Regino Score : 22 NATALIIA ELMORE RN - 03/19/2012 12:05 MEAT CUTTER APPRENTICE Hendrich II Fall Risk Confusion/Disorientation Hendrich : [...] 2 NATALIIA ELMORE RN - 03/19/2012 12:05 MEAT CUTTER APPRENTICE Education General Patient Education Powergrid Topics : Activity limitations/expectations, Discharge instructions/Medication list, Individual plan for pain management, Pain Management, Physical limitations, Plan of care, Printed materials Individuals Taught : Patient Barriers to Learning : None evident Teaching Method : Explanation, Printed materials Teaching Evaluation : Verbalizes understanding NATALIIA ELMORE RN - 03/19/2012 12:05 MEAT CUTTER APPRENTICE Source: [facility] POWERCHART Document Id: [id number] CUTTER APPRENTICE Miscellaneous - Nataliia Elmore R.N. - 03/19/2012 11:36 AM CST Adult Postprocedure Assessment Document Has Been Updated Adult Postprocedure Assessment Entered On: 03/19/2012 11:55 MEAT CUTTER APPRENTICE Performed On: 03/19/2012 11:36 MEAT CUTTER APPRENTICE by NATALIIA ELMORE RN Vital Signs Temperature Core : 39.2C(Converted to: 102.6DegF) (HI) Peripheral Pulse Rate : 69/min Systolic Blood Pressure : 107mmHg Diastolic Blood Pressure : 64mmHg NIBP Mean : 78mmHg BP Location : Left upper extremity SpO2 : 100% Oxygen Flow Rate : 2L/min Oxygen Therapy : Nasal Cannula NATALIIA ELMORE RN - 03/19/2012 11:36 MEAT CUTTER APPRENTICE General Level of Consciousness : Alert Orientation : Oriented x 3 Skin Color : Normal for ethnicity Skin Description : Dry Skin Temperature : Warm Pain Symptoms : No NATALIIA ELMORE RN - 03/19/2012 11:36 MEAT CUTTER APPRENTICE FLACC Face FLACC : No particular expression or smile Legs FLACC : Normal position or relaxed Activity FLACC : Lying quietly, normal position, moves easily Cry FLACC : No cry, awake or asleep Consolabillity FLACC : Content, relaxed FLACC Pain Scale Score : 0 NATALIIA ELMORE RN - 03/19/2012 11:36 MEAT CUTTER APPRENTICE Cardiovascular Heart Rhythm : Regular Nail Bed Color : [place] Capillary Refill : Less than 2 seconds NATALIIA ELMORE RN - 03/19/2012 11:36 MEAT CUTTER APPRENTICE Pulses Grid Dorsalis Pedis Pulse, Left : 2+ Normal Dorsalis Pedis Pulse, Right : 2+ Normal NATALIIA ELMORE RN - 03/19/2012 11:36 MEAT CUTTER APPRENTICE Antiembolism Device : Sequential Compression Device Antiembolism Device Laterality : Right NATALIIA ELMORE RN - 03/19/2012 11:36 MEAT CUTTER APPRENTICE Respiratory Anesthesia Type : Block, Spinal NATALIIA ELMORE RN - 03/19/2012 15:12 MEAT CUTTER APPRENTICE Airway Type : None Respiratory Pattern : Regular Respirations : Unlabored All Lobes Breath Sounds : Clear NATALIIA ELMORE RN - 03/19/2012 11:36 MEAT CUTTER APPRENTICE GI/ Nausea Symptoms : No NATALIIA ELMORE RN - 03/19/2012 11:36 MEAT CUTTER APPRENTICE Integumentary Integumentary Patient Stated Symptoms : None Skin Turgor : Elastic Skin Integrity : Not intact Mucous Membrane Color : [place] Mucous Membrane Description : Moist Skin Color : Normal for ethnicity Skin Description : Dry Skin Temperature : Warm NATALIIA ELMORE - 03/19/2012 11:36 MEAT CUTTER APPRENTICE Incision/Wound Incision/Wound Care Grid Activity : Assessed Type : Other: arthroscopy Location : Knee Laterality : Left Description : NATALIIA Black - 03/19/2012 11:36 MEAT CUTTER APPRENTICE Peripheral IV Peripheral IV Assess/Intervention Grid Peripheral IV #1 IV Activity : Assessment Number of Attempts : 4 Date of Insertion : 03/19/2012 MEAT CUTTER APPRENTICE IV Site : Hand Laterality : Left Catheter Size : 20 Catheter Type : Over the needle Site Condition : No complications Drainage Description : None NATALIIA ELMORE - 03/19/2012 11:36 MEAT CUTTER APPRENTICE Neurologic Swallowing Difficulty/Aspiration Risk : None Extremity Movement : Unequal Facial Symmetry : Symmetric Characteristics of Speech : Appropriate for age NATALIIA ELMORE - 03/19/2012 11:36 MEAT CUTTER APPRENTICE Lower Extremity Nail Bed Color Feet Grid Left Foot : [place] Right Foot : [place] NATALIIA ELMORE - 03/19/2012 11:36 MEAT CUTTER APPRENTICE Capillary Refill Feet Grid Left Foot : < 2 seconds Right Foot : < 2 seconds NATALIIA ELMORE - 03/19/2012 11:36 MEAT CUTTER APPRENTICE NV Lower Extremity Color Grid Left : [place] Right : [place] NATALIIA ELMORE - 03/19/2012 11:36 MEAT CUTTER APPRENTICE NV Lower Extremity Temperature Grid Left : Warm Right : Warm NATALIIA ELMORE - 03/19/2012 11:36 MEAT CUTTER APPRENTICE Lower Extremity Peripheral Pulses Grid Popliteal Pulse, Left : 2+ Normal Popliteal Pulse, Right : 2+ Normal Posttibial Pulse, Left : 2+ Normal Posttibial Pulse, Right : 2+ Normal Dorsalis Pedis Pulse, Left : 2+ Normal Dorsalis Pedis Pulse, Right : 2+ Normal NATALIIA ELMORE - 03/19/2012 11:36 MEAT CUTTER APPRENTICE Lower Extremity Sensation NV Grid Medial/Lateral Surfaces Sole of Left Foot : Absent Medial/Lateral Surfaces Sole of Right Foot : Tingling Web Space Between Great and Second Toe Left Foot : Absent Web Space Between Great and Second Toe Right Foot : Tingling NATALIIA ELMORE - 03/19/2012 11:36 MEAT CUTTER APPRENTICE Lower Extremity Strength NV Grid Plantar Flexion Left Foot : Zero 0 Plantar Flexion Right Foot : Zero 0 Dorsiflex Foot/Extend Toes Left : Zero 0 Dorsiflex Foot/Extend Toes Right : Zero 0 NATALIIA ELMORE RN - 03/19/2012 11:36 MEAT CUTTER APPRENTICE PARSAP Activity Status : Moves 2 extremities [...] assessed NATALIIA ELMORE RN - 03/19/2012 11:36 MEAT CUTTER APPRENTICE Johnson Johnson Agitation Sedation Scale (RASS) : Alert and calm RASS Score : 0 NATALIIA ELMORE RN - 03/19/2012 11:36 MEAT CUTTER APPRENTICE Regino Sensory Perception Regino : Slightly limited Moisture Regino : Rarely moist Activity Regino : Bedfast Mobility Regino : Completely limited Nutrition Regino : Adequate NATALIIA ELMORE RN - 03/19/2012 11:36 MEAT CUTTER APPRENTICE Hendrich II Fall Risk Confusion/Disorientation Hendrich : [...] 5 NATALIIA ELMORE RN - 03/19/2012 11:36 MEAT CUTTER APPRENTICE Education General Patient Education Powergrid Topics : Activity limitations/expectations, Individual plan for pain management, Pain Management, Plan of care, Printed materials, Safety, fall, Turn/Cough/Deep breathing Individuals Taught : Patient Barriers to Learning : None evident Teaching Method : Explanation, Printed materials Teaching Evaluation : Verbalizes understanding NATALIIA ELMORE RN - 03/19/2012 11:36 MEAT CUTTER APPRENTICE Source: [facility] POWERCHART Document Id: [id number] CUTTER APPRENTICE Miscellaneous - Guillermina White R.N. - 03/19/2012 11:15 AM CST Adult Postprocedure Assessment Adult Postprocedure Assessment Entered On: 03/19/2012 11:31 MEAT CUTTER APPRENTICE Performed On: 03/19/2012 11:15 MEAT CUTTER APPRENTICE by GUILLERMINA WHITE RN Vital Signs Temperature Core : 36.5C(Converted to: 97.7DegF) Peripheral Pulse Rate : 68/min Respiratory Rate : 16/min Systolic Blood Pressure : 100mmHg Diastolic Blood Pressure : 59mmHg NIBP Mean : 73mmHg BP Location : Right upper extremity SpO2 : 100% Oxygen Flow Rate : 2L/min Oxygen Therapy : Nasal Cannula GUILLERMINA WHITE RN - 03/19/2012 11:22 MEAT CUTTER APPRENTICE General Level of Consciousness : Alert Orientation : Oriented x 3 Skin Color : Normal for ethnicity Skin Description : Dry Skin Temperature : Warm Pain Symptoms : No GUILLERMINA WHITE RN - 03/19/2012 11:22 MEAT CUTTER APPRENTICE FLACC Face FLACC : No particular expression or smile Legs FLACC : Normal position or relaxed Activity FLACC : Lying quietly, normal position, moves easily Cry FLACC : No cry, awake or asleep Consolabillity FLACC : Content, relaxed FLACC Pain Scale Score : 0 GUILLERMINA WHITE RN - 03/19/2012 11:22 MEAT CUTTER APPRENTICE Cardiovascular Heart Rhythm : Regular Nail Bed Color : [place] Edema : None Capillary Refill : Less than 2 seconds GUILLERMINA WHITE RN - 03/19/2012 11:22 MEAT CUTTER APPRENTICE Pulses Grid Radial Pulse, Left : 2+ Normal Radial Pulse, Right : 2+ Normal Dorsalis Pedis Pulse, Left : 2+ Normal Dorsalis Pedis Pulse, Right : 2+ Normal GUILLERMINA WHITE RN - 03/19/2012 11:22 MEAT CUTTER APPRENTICE Antiembolism Device : Luis Carlos wraps, Graduated compression stockings, thigh high Antiembolism Device Laterality : Right Anti Embolism Devices Time Applied : 03/19/2012 9:30 MEAT CUTTER APPRENTICE GUILLERMINA WHITE RN - 03/19/2012 11:22 MEAT CUTTER APPRENTICE Respiratory Anesthesia Type : MAC Airway Type : None Respiratory Pattern : Regular Respirations : Unlabored All Lobes Breath Sounds : Clear GUILLERMINA WHITE RN - 03/19/2012 11:22 MEAT CUTTER APPRENTICE GI/ Nausea Symptoms : No GUILLERMINA WHITE RN - 03/19/2012 11:22 MEAT CUTTER APPRENTICE Integumentary Integumentary Patient Stated Symptoms : None Skin Turgor : Elastic Skin Integrity : Intact Mucous Membrane Color : [place] Mucous Membrane Description : Moist Skin Color : Normal for ethnicity Skin Description : Normal Skin Temperature : Warm GUILLERMINA WHITE RN - 03/19/2012 11:22 MEAT CUTTER APPRENTICE Peripheral IV Peripheral IV Assess/Intervention Grid Peripheral IV #1 IV Activity : Assessment Number of Attempts : 4 Date of Insertion : 03/19/2012 MEAT CUTTER APPRENTICE IV Site : Hand Laterality : Left Catheter Size : 20 Catheter Type : Over the needle GUILLERMINA WHITE RN - 03/19/2012 11:22 MEAT CUTTER APPRENTICE I&O Other Intake : 1,500mL GUILLERMINA WHITE RN - 03/19/2012 11:22 MEAT CUTTER APPRENTICE Neurologic Swallowing Difficulty/Aspiration Risk : None Characteristics of Speech : Clear GUILLERMINA WHITE RN - 03/19/2012 11:22 MEAT CUTTER APPRENTICE Lower Extremity Nail Bed Color Feet Grid Left Foot : [place] Right Foot : [place] GUILLERMINA WHITE RN - 03/19/2012 11:22 MEAT CUTTER APPRENTICE Capillary Refill Feet Grid Left Foot : < 2 seconds Right Foot : < 2 seconds GUILLERMINA WHITE RN - 03/19/2012 11:22 MEAT CUTTER APPRENTICE NV Lower Extremity Color Grid Left : [place] Right : [place] GUILLERMINA WHITE RN - 03/19/2012 11:22 MEAT CUTTER APPRENTICE NV Lower Extremity Temperature Grid Left : Warm Right : Warm GUILLERMINA WHITE RN - 03/19/2012 11:22 MEAT CUTTER APPRENTICE Lower Extremity Peripheral Pulses Grid Popliteal Pulse, Left : 2+ Normal Popliteal Pulse, Right : 2+ Normal Posttibial Pulse, Left : 2+ Normal Posttibial Pulse, Right : 2+ Normal Dorsalis Pedis Pulse, Left : 2+ Normal Dorsalis Pedis Pulse, Right : 2+ Normal GUILLERMINA WHITE RN - 03/19/2012 11:22 MEAT CUTTER APPRENTICE Lower Extremity Sensation NV Grid Medial/Lateral Surfaces Sole of Left Foot : Absent Medial/Lateral Surfaces Sole of Right Foot : Absent Web Space Between Great and Second Toe Left Foot : Absent Web Space Between Great and Second Toe Right Foot : Absent GUILLERMINA WHITE RN - 03/19/2012 11:22 MEAT CUTTER APPRENTICE Lower Extremity Strength NV Grid Plantar Flexion Left Foot : Zero 0 Plantar Flexion Right Foot : Zero 0 Dorsiflex Foot/Extend Toes Left : Zero 0 Dorsiflex Foot/Extend Toes Right : Zero 0 GUILLERMINA WHITE RN - 03/19/2012 11:22 MEAT CUTTER APPRENTICE Upper Extremity Nail Bed Color Hands Grid Left Hand : [place] Right Hand : [place] GUILLERMINA WHITE RN - 03/19/2012 11:22 MEAT CUTTER APPRENTICE Capillary Refill Hand Grid Left Hand : < 2 seconds Right Hand : < 2 seconds GUILLERMINA WHITE RN - 03/19/2012 11:22 MEAT CUTTER APPRENTICE Upper Extremity Color Grid Left : [place] Right : [place] GUILLERMINA WHITE RN - 03/19/2012 11:22 MEAT CUTTER APPRENTICE Upper Extremity Temperature Grid Left : Warm Right : Warm GUILLERMINA WHITE RN - 03/19/2012 11:22 MEAT CUTTER APPRENTICE NV Upper Extremity Pulses Grid Radial Pulse, Left : 2+ Normal Radial Pulse, Right : 2+ Normal GUILLERMINA WHITE RN - 03/19/2012 11:22 MEAT CUTTER APPRENTICE Modified Temitope Activity : Moves 2 extremities voluntarily or on command Respiratory : Able to deep breathe and cough freely Circulation : BP 20-49% of preanesthetic level Consciousness : Fully awake O2 Saturation : Needs oxygen to maintain > 92% Temitope l Score : 7 GUILLERMINA WHITE RN - 03/19/2012 11:22 MEAT CUTTER APPRENTICE Johnson Johnson Agitation Sedation Scale (RASS) : Alert and calm RASS Score : 0 GUILLERMINA WHITE RN - 03/19/2012 11:22 MEAT CUTTER APPRENTICE Regino Sensory Perception Regino : No impairment Moisture Regino : Rarely moist Activity Regino : Walks frequently Mobility Regino : Very limited Nutrition Regino : Excellent Friction and Shear Regino : No apparent problem Regino Score : 21 GUILLERMINA WHITE RN - 03/19/2012 11:22 MEAT CUTTER APPRENTICE Hendrich II Fall Risk Confusion/Disorientation Hendrich : [...] 5 GUILLERMINA WHITE RN - 03/19/2012 11:22 MEAT CUTTER APPRENTICE Education General Patient Education Powergrid Topics : Activity limitations/expectations, Disease process, Pain Management, Physical limitations, Plan of care, Postoperative instructions, Surgery, Use of pain scale(s) Individuals Taught : Patient Barriers to Learning : None evident Teaching Method : Explanation Teaching Evaluation : Needs reinforcement, Verbalizes understanding Education Referral Made To : Physical Therapy GUILLERMINA WHITE RN - 03/19/2012 11:22 MEAT CUTTER APPRENTICE Source: [facility] POWERCHART Document Id: [id number] CUTTER APPRENTICE documented in this encounter Plan of Treatment Not on filedocumented as of this encounter Visit Diagnoses Not on filedocumented in this encounter
--- OUTSIDE RECORDS SUMMARY | 2022-02-16 09:57 | XMS_ITS | Encounter Summary ---
:1970 Author Organization [facility] Address [address] [place] [address] Care Team Providers Name Role Phone Unavailable Primary Care Provider Unavailable Encounter Details Date Type Department Care Team Description 08/01/2013 Hospital Encounter HX [facility] Willem Saeed APRN, C.N.P., D. N.P. 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 0 011 documented as of this encounter Progress Notes Willem Saeed APRN, C.N.P. - 08/01/2013 9:39 AM CDT [id number] CHIEF COMPLAINT/REASON FOR VISIT Cystic skin lesions. [...] Herzog/mikey Electronically Signed By: WILLEM SAEED RN, ELECTROMECHANIC On: 08/19/2013 04:57 PM Source: [facility] MHSDOLBEYNONRADSYS Document Id: [id number] documented in this encounter Miscellaneous Notes Miscellaneous - Willem Saeed APRN, C.N.P. - 08/01/2013 10:41 AM CDT Ambulatory Patient Summary [address] [place], [place] [id number] Visit Information Name: CANDY GRULLON [facility] Number: [id number] Current Date: 08/01/2013 10:41:01 Physicians Attending Provider: WILLEM SAEED RN, ELECTROMECHANIC Primary Care Provider: WILLEM SAEED RN, ELECTROMECHANIC CANDY GRULLON has been given the following [...] day x 14 day(s) New Routed to [address] [id number] Stop Taking the Following Medications: Medication list [...] emergency. Electronically Signed By: WILLEM SAEED RN, ELECTROMECHANIC Signed On:01-AUG-2013 10:40:53 Your Allergies & Intolerances [...] appointment detail needed. Your Goals/Additional instructions: Source: [facility] POWERCHART Document Id: [id number] Miscellaneous - Willem Saeed APRN, C.N.P. - 08/01/2013 10:40 AM CDT Ambulatory Discharge Medication List [address] [place], [place] [id number] Visit Information Name: CANDY GRULLON [facility] Number: [id number] Visit Date: 08/01/2013 10:40:58 Attending [...] day x 14 day(s) New Routed to [address] [address] Stop Taking the Following Medications: Medication list [...] emergency. Electronically Signed By: WILLEM SAEED RN, ELECTROMECHANIC Signed On:01-AUG-2013 10:40:53 Additional Information: Source: [facility] POWERCHART Document Id: [id number] Miscellaneous - Johnnie Sher L.PCarineN. - 08/01/2013 9:49 AM CDT Adult Jar Filler Intake/History Adult Jar Filler Intake/History Entered On: 08/01/2013 9:54 CDT Performed On: 08/01/2013 9:49 CDT by JOHNNIE SHER PRODUCTION ASSEMBLY OPERATOR Intake Chief Complaint : Reoccuring cysts [id number]. left cheek, 2 on right breast, 2 [...] Preferred Communication Mode : Verbal Languages : Wolof JOHNNIE SHER [facility] - 08/01/2013 9:49 CDT Subjective Pain Symptoms : Yes JOHNNIE SHER LPN - 08/01/2013 9:49 CDT Pain Pain Assessment Grid Pain 1 Location : Breast Laterality : Bilateral JOHNNIE SHER [facility] - 08/01/2013 9:49 CDT Dependent Habits Tobacco Use/Currently Using : Yes Exposure to Tobacco Smoke : Patient smokes Smoking Status : Current every day smoker JOHNNIE SHER [facility] - 08/01/2013 9:49 CDT Tobacco Use Grid Type : Cigarettes Cigarette Use Packs/Day : 0.5 JOHNNIE SHER [facility] - 08/01/2013 9:49 CDT Alcohol Use : Yes JOHNNIE SHER [facility] - 08/01/2013 9:49 CDT Caffeine Use Grid Caffeine Use : Current Type : Soft drinks Frequency : Daily JOHNNIE SHER LPN - 08/01/2013 9:49 CDT Recreational Drug Use Grid Drug Use : None JOHNNIE SHER LPN - 08/01/2013 9:49 CDT Source: [employer] Document Id: [id number] documented in this encounter Plan of Treatment Not on filedocumented as of this encounter Visit Diagnoses Not on filedocumented in this encounter
--- OUTSIDE RECORDS SUMMARY | 2022-02-16 09:57 | XMS_ITS | Encounter Summary ---
:1970 Author Organization [facility] Address [address] [place] [address] Care Team Providers Name Role Phone Unavailable Primary Care Provider Unavailable Encounter Details Date Type Department Care Team Description 03/06/2012 Hospital Encounter HX [facility] [facility] ME Alcides Whitehead M.D. Social History Tobacco Use Types Packs/Day Years Used Date Smoking Tobacco: Never Assessed Sex Assigned at Date Recorded Not on file documented as of this encounter Last Filed Vital Signs Vital Sign Reading Time Taken Comments Blood Pressure 136/80 03/06/2012 10:56 AM MUSIC ASSISTANT Pulse 82 03/06/2012 10:56 AM MUSIC ASSISTANT Temperature - - Respiratory Rate - - Oxygen Saturation - - Inhaled Oxygen Concentration - - Weight 96.7 kg (213 lb 3 oz) 03/06/2012 10:56 AM MUSIC ASSISTANT Height 161 cm (5' 3.39) 03/06/2012 10:56 AM MUSIC ASSISTANT Body Mass Index 37.31 03/06/2012 10:56 AM MUSIC ASSISTANT documented in this encounter Medications at Time of Discharge Medication Sig Dispensed Refills Start Date End Date IBUPROFEN ORAL Take by mouth as needed. 0 011 documented as of this encounter Progress Notes Alcides Whitehead M.D. 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 FAMILY HISTORY Is negative for anesthesia or [...] and surgery per Dr. Michaud and the Marketing Research Intern. Alcides Whitehead M.D./katt Electronically Signed By: ALCIDES WHITEHEAD MD On: 03/08/2012 07:54 AM Source: [facility] MHSDOLBEYNONRADSYS Document Id: [id number] C ASSISTANT documented in this encounter Miscellaneous Notes Miscellaneous - Alcides Whitehead M.D. - 03/06/2012 11:31 AM CST Ambulatory Patient Summary [address] [address] Visit Information Name: CANDY CORADO Current Date: 03/06/2012 11:31:28 Physicians Attending Provider: ALCIDES WHITEHEAD MD Primary Care Provider: WILLEM SAEED RN, GLASS BELT SANDER Your Medications Here is a list of [...] Date Time Location Reason Provider 03/19/2012 10:00 [facility] Surgery OP OP/DS Left knee arthroscopy, partial meniscectomy 04/02/2012 10:30 [facility] Clin post op L knee Eder BARRERA, Lars Davis Your Goals/Additional instructions: Source: [facility] POWERCHART Document Id: [id number] C ASSISTANT Martin - Alcides Whitehead M.D. - 03/06/2012 11:31 AM CST Ambulatory Depart Summary [facility] [address] [place] [address] Visit Information Name: CANDY COARDO Visit Date: 03/06/2012 11:31:27 Attending Provider: ALCIDES WHITEHEAD MD Primary Care Provider: WILLEM SAEED RN, GLASS BELT SANDER CANDY CORADO has been given the following [...] clarification. Additional Information: Source: [facility] [address] Document Id: [id number] C ASSISTANT Martin - Latrice Hernandez L.P.N. - 03/06/2012 11:00 AM CST Obstructive Sleep Apnea Obstructive Sleep Apnea Entered On: 03/06/2012 11:02 MUSIC ASSISTANT Performed On: 03/06/2012 11:00 MUSIC ASSISTANT by LATRICE HERNANDEZ LPN RT GINGER Screening Known Obstructive Sleep Apnea : No Risk for Sleep Apnea : No LATRICE HERNANDEZ LPN, - 03/06/2012 11:00 MUSIC ASSISTANT GINGER Assessment Do you have high blood pressure or have you been told to take medication for high blood pressure? : No Frequency of Snoring : Never Frequency of Gasping, Choking, Snorting : Never Neck Circumference (cm) : 42/43 Total Number of Historical Features : 0 LATRICE HERNANDEZ LPN, - 03/06/2012 11:00 MUSIC ASSISTANT Source: [facility] POWERCHART Document Id: [id number] C ASSISTANT Miscellaneous - Latrice Hernandez L.P.N. - 03/06/2012 10:56 AM CST Adult Fitness Specialist Intake/History Adult Fitness Specialist Intake/History Entered On: 03/06/2012 10:59 MUSIC ASSISTANT Performed On: 03/06/2012 10:56 MUSIC ASSISTANT by LATRICE HERNANDEZ LPN, RT Intake Chief [...] LATRICE HERNANDEZ LPN, RT - 03/06/2012 10:56 MUSIC ASSISTANT General Info Information Given By : Patient Preferred Communication Mode : Verbal Languages : Thai LATRICE HERNANDEZ LPN, RT - 03/06/2012 10:56 MUSIC ASSISTANT Subjective Pain Symptoms : No LATRICE HERNANDEZ LPN, RT - 03/06/2012 10:56 MUSIC ASSISTANT Dependent Habits Tobacco Use/Currently Using : Yes Exposure to Tobacco Smoke : Patient smokes Smoking Status : Current every day smoker LATRICE HERNANDEZ LPN, RT - 03/06/2012 10:56 MUSIC ASSISTANT Tobacco Use Grid Type : Cigarettes Cigarette Use Packs/Day : 0.5 LATRICE HERNANDEZ LPN, RT 03/06/2012 10:56 MUSIC ASSISTANT Caffeine Use Grid Caffeine Use : Current Type : Soft drinks Frequency : Daily LATRICE HERNANDEZ LPN, RT - 03/06/2012 10:56 MUSIC ASSISTANT Recreational Drug Use Grid Drug Use : None LATRICE HERNANDEZ LPN, RT - 03/06/2012 10:56 MUSIC ASSISTANT Allergy Allergies (Active) Demerol HCl Estimated Onset Date: Unspecified ; Created By: WADE DAIGLE LPN; Reaction Status: Active ; Category: Drug ; Substance: Demerol HCl ; Type: Allergy ; Updated By: WADE DAIGLE LPN;Reviewed Date: 02/07/2012 9:05 CDT Source: [facility] [address] Document Id: [id number] C ASSISTANT documented in this encounter Plan of Treatment Not on filedocumented as of this encounter Visit Diagnoses Not on filedocumented in this encounter
--- OUTSIDE RECORDS SUMMARY | 2022-02-16 09:57 | XMS_ITS | Encounter Summary ---
:[address] [facility] Address [address] [place] [address] Care Team Providers Name Role Phone Unavailable Primary Care Provider Unavailable Encounter Details Date Type Department Care Team Description 06/17/2014 Hospital Encounter HX [facility] Manuela Hi P.A.-C. Social History Tobacco Use [...] 161 cm (5' 3.39) 06/17/2014 9:36 AM INDUSTRIAL GREEN SYSTEMS DESIGNER Body Mass Index - - documented in this encounter Medications at Time of Discharge Medication Sig Dispensed Refills Start Date End Date IBUPROFEN ORAL Take by mouth as needed. 0 011 documented as of this encounter Consult Notes Manuela Brewer - 06/17/2014 9:30 AM CST [id number] Ms. Grullon is a very pleasant 43-year-old [...] BREWER PA-C On: 06/22/2014 04:03 PM Source: [facility] MHSDUMA Document Id: [id number] STRIAL GREEN SYSTEMS DESIGNER documented in this encounter Miscellaneous Notes Miscellaneous - Magda Barrera L.P.N. - 06/17/2014 9:36 AM CST Adult Performance Test Architect Intake/History Adult Performance Test Architect Intake/History Entered On: 06/17/2014 9:37 INDUSTRIAL GREEN SYSTEMS DESIGNER Performed On: 06/17/2014 9:36 INDUSTRIAL GREEN SYSTEMS DESIGNER by MAGDA BARRERA LPN Intake Chief Complaint : Patient here for 3rd Supartz injection to left knee, pain 3/10 Height : 161 cm(Converted to: 5 ft 3 inch(es), 63 inch(es)) MAGDA BARRERA LPN - 06/17/2014 9:36 INDUSTRIAL GREEN SYSTEMS DESIGNER General Info Information Given By : Patient Preferred Communication Mode : Verbal Languages : Vincentian Is Patient Female and 13-50 no hysterectomy : No MAGDA BARRERA LPN - 06/17/2014 9:36 INDUSTRIAL GREEN SYSTEMS DESIGNER Subjective Pain Symptoms : Yes MAGDA BARRERA LPN - 06/17/2014 9:36 INDUSTRIAL GREEN SYSTEMS DESIGNER Pain Scale Pain Scale Verbal 0-10 : Open MAGDA BARRERA LPN - 06/17/2014 9:36 INDUSTRIAL GREEN SYSTEMS DESIGNER Pain Pain Assessment Grid Pain 1 Location : Knee Laterality : Left Intensity : 3 MAGDA BARRERA LPN 06/17/2014 9:36 INDUSTRIAL GREEN SYSTEMS DESIGNER Dependent Habits Tobacco Use/Currently Using : Yes Exposure to Tobacco Smoke : Patient smokes Smoking Status : Current every day smoker MAGDA BARRERA LPN - 06/17/2014 9:36 INDUSTRIAL GREEN SYSTEMS DESIGNER Tobacco Use Grid Type : Cigarettes Cigarette Use Packs/Day : 0.5 MAGDA BARRERA LPN - 06/17/2014 9:36 INDUSTRIAL GREEN SYSTEMS DESIGNER Caffeine Use Grid Caffeine Use : Current Type : Soft drinks Frequency : Daily MAGDA BARRERA LPN - 06/17/2014 9:36 INDUSTRIAL GREEN SYSTEMS DESIGNER Recreational Drug Use Grid Drug Use : None MAGDA BARRERA LPN - 06/17/2014 9:36 INDUSTRIAL GREEN SYSTEMS DESIGNER ID Screen Drug Resistant Organism : No Travel Within Last 21 Days : No MAGDA BARRERA LPN - 06/17/2014 9:36 INDUSTRIAL GREEN SYSTEMS DESIGNER [facility] Id: [id number] INDUSTRIAL GREEN SYSTEMS DESIGNER!38 STRIAL GREEN SYSTEMS DESIGNER documented in this encounter Plan of Treatment Not on filedocumented as of this encounter Visit Diagnoses Not on filedocumented in this encounter
--- OUTSIDE RECORDS SUMMARY | 2022-02-16 09:57 | XMS_ITS | Encounter Summary ---
:1970 Author Organization [facility] Address [address] [place] [address] Care Team Providers Name Role Phone Isabelle Henderson APRN, C.N.P. Primary Care Provider [phone] Encounter Details Date Type Department Care Team Description 07/18/2016 - Hospital Encounter [facility] Marjan Velarde 12/05/2016 HITESH Ascencio, C.N.P. [address] [place] [address] (Wo rk) Social History Tobacco Use Types [...] Davis, P.T. - 07/18/2016 12:00 AM CDT [id number] PHYSIAL THERAPY INITIAL EVALUATION REFERRING PHYSICIAN Silvana [...] again. 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 She is moving [...] SAMI DAVIS On: 07/27/2016 06:46 AM Source: [facility] TAMMIESDOLBEINGE Document Id: [id number] documented in this encounter Miscellaneous Notes Miscellaneous - Conversion, Historical Provider Ser - 07/25/2016 3:44 PM CDT Coding Summary-Paper Based CODING DATE: 07/25/2016 FINAL [facility] STATUS: Still Patient/Expected to Rtn [facility] PAYOR: Preferred One [...] MORELOS Date Saved: 07/25/2016 03:44 pm Source: [facility] [employer] Document Id: [id number] documented in this encounter Plan of Treatment Not on filedocumented as of this encounter Visit Diagnoses Not on filedocumented in this encounter Care Teams Mailer Apprentice Relationship Specialty Start Date End Date Isabelle Henderson APRN, C.N.P. PCP - General 10/05/16 08/17/17 documented as of this encounter
--- OUTSIDE RECORDS SUMMARY | 2022-02-16 09:57 | XMS_ITS | Encounter Summary ---
:1970 Author Organization [facility] Address [address] [place] [address] Care Team Providers Name Role Phone Unavailable [...] Comments Blood Pressure 132/82 04/02/2012 10:18 AM CNC MILL SET UP OPERATOR Pulse - - Temperature - - Respiratory Rate 20 04/02/2012 10:18 AM CNC MILL SET UP OPERATOR Oxygen Saturation - - Inhaled Oxygen Concentration - - Weight - - Height - - Body Mass Index - - documented in this encounter Medications at Time of Discharge Medication Sig Dispensed Refills Start Date End Date IBUPROFEN ORAL Take by mouth as needed. 0 011 documented as of this encounter Consult Notes Manuela Brewer - 04/02/2012 10:13 AM CST [id number] CHIEF COMPLAINT/REASON FOR VISIT Ms. Grullon is [...] BREWER PA-C On: 04/09/2012 02:13 PM Source: [facility] MHSDOLBEYNONRADSYS Document Id: [id number] MILL SET UP OPERATOR documented in this encounter Miscellaneous Notes Miscellaneous - Manuela Brewer - 04/02/2012 5:50 PM CST Ambulatory Patient Summary [address] [address] Visit Information Name: CANDY GRULLON [facility] Number: [id number] Current Date: 04/02/2012 17:50:17 Physicians Attending Provider: MANUELA BREWER PA-C Primary Care Provider: WILLEM SAEED RN, LADLE HANDLER Your Medications Here is a list of [...] Manuela Brewer PA-C Your Goals/Additional instructions: Source: [facility] [place] Document Id: [id number] MILL SET UP OPERATOR Miscellaneous - Manuela Brewer - 04/02/2012 5:50 PM CST Ambulatory Depart Summary [facility] [address] [address] Visit Information Name: CANDY GRULLON [facility] Number: [id number] Visit Date: 04/02/2012 17:50:16 Attending Provider: MANUELA BREWER PA-C Primary Care Provider: WILLEM SAEED RN, LADLE HANDLER CANDY GRULLON has been given the following [...] your provider for clarification. Additional Information: Source: [facility] [place] Document Id: [id number] MILL SET UP OPERATOR Abbeycellkatie - Manuela Brewer - 04/02/2012 10:28 AM CST Return to Work Status Return to Work Status Entered On: 04/02/2012 10:29 CNC MILL SET UP OPERATOR Performed On: 04/02/2012 10:28 CNC MILL SET UP OPERATOR by MANUELA BREWER PA-C Return to Work Status Work Status Comment : Off work through 10-Apr-2012. May return to work as of 11-Apr-2012. MANUELA BREWER PA-C - 04/02/2012 10:28 CNC MILL SET UP OPERATOR Source: [facility] [employer] Document Id: [id number] MILL SET UP OPERATOR Miscellaneous - Zaida Miranda RClinton - 04/02/2012 10:18 AM CNC MILL SET UP OPERATOR Adult Engineering Drafter Intake/History Adult Engineering Drafter Intake/History Entered On: 04/02/2012 10:21 CNC MILL SET UP OPERATOR Performed On: 04/02/2012 10:18 CNC MILL SET UP OPERATOR by ZAIDA MIRANDA family resource management professor Chief Complaint : Left knee arthroscopy 2 weeks ago. Knee is sore. It feels much better than it did prior to surgery but still sore. Temperature Core : 36.6C(Converted to: 97.9DegF) Respiratory Rate : 20/min Systolic Blood Pressure : 132mmHg Diastolic Blood Pressure : 82mmHg NIBP Mean : 99mmHg ZAIDA MIRANDA RN - 04/02/2012 10:18 CNC MILL SET UP OPERATOR General Info Information Given By : Patient Preferred Communication Mode : Verbal Languages : Cameroonian ZAIDA MIRANDA RN - 04/02/2012 10:18 CNC MILL SET UP OPERATOR Subjective Pain Symptoms : Yes ZAIDA MIRANDA RN - 04/02/2012 10:18 CNC MILL SET UP OPERATOR Pain Pain Assessment Grid Pain 1 Laterality : Left Time Pattern : Chronic Onset : Gradual ZAIDA MIRANDA RN - 04/02/2012 10:18 CNC MILL SET UP OPERATOR Dependent Habits Tobacco Use/Currently Using : Yes Tobacco Use/Advised to Quit : Yes Exposure to Tobacco Smoke : Patient smokes Smoking Status : Current every day smoker ZAIDA MIRANDA RN - 04/02/2012 10:18 CNC MILL SET UP OPERATOR Tobacco Use Grid Type : Cigarettes Cigarette Use Packs/Day : 0.5 ZAIDA MIRANDA RN - 04/02/2012 10:18 CNC MILL SET UP OPERATOR Caffeine Use Grid Caffeine Use : Current Type : Soft drinks Frequency : Daily ZAIDA MIRANDA RN - 04/02/2012 10:18 CNC MILL SET UP OPERATOR Recreational Drug Use Grid Drug Use : None ZAIDA MIRANDA RN - 04/02/2012 10:18 CNC MILL SET UP OPERATOR Allergy Allergies (Active) Demerol HCl Estimated Onset Date: Unspecified ; Created By: WADE DAIGLE LPN; Reaction Status: Active ; Category: Drug ; Substance: Demerol HCl ; Type: Allergy ; Updated By: WADE DAIGLE LPN;Reviewed Date: 04/02/2012 10:16 CNC MILL SET UP OPERATOR hydrocodone-acetaminophen Estimated Onset Date: Unspecified ; Created By: MICHELLE JOHNSON RN; Reaction Status: Active ; Category: Drug ; Substance: hydrocodone-acetaminophen ; Type: Allergy ; Severity: Severe ; Updated By: MICHELLE JOHNSON RN; Source: Patient ; Reviewed Date: 04/02/2012 10:16 CNC MILL SET UP OPERATOR Source: [facility] POWERCHART Document Id: [id number] MILL SET UP OPERATOR documented in this encounter Plan of Treatment Not on filedocumented as of this encounter Visit Diagnoses Not on filedocumented in this encounter
--- OUTSIDE RECORDS SUMMARY | 2022-02-16 09:57 | XMS_ITS | Encounter Summary ---
:1970 Author Organization [facility] Address [address] [place] [address] Care Team Providers Name Role Phone Unavailable Primary Care Provider Unavailable Encounter Details Date Type Department Care Team Description 03/19/2012 Hospital Encounter HX NO MAPPING Noah Michaud M.D. [address] [place], [place] [phone] (Wo rk) Social History [...]
--- OUTSIDE RECORDS SUMMARY | 2022-02-16 09:57 | XMS_ITS | Encounter Summary ---
:[address] [facility] Address [address] [place] [address] Care Team Providers Name Role Phone Unavailable Primary Care Provider Unavailable Encounter Details Date Type Department Care Team Description 05/08/2012 Hospital Encounter HX [facility] Denise Johnson P.A.-C. [address] [place] [address] (Wo rk) Social History Tobacco Use Types Packs/Day Years Used Date Smoking Tobacco: Never Assessed Sex Assigned at Date Recorded Not on file documented as of this encounter Last Filed Vital Signs Vital Sign Reading Time Taken Comments Blood Pressure 126/68 05/08/2012 1:08 PM COMPOUNDER HELPER Pulse 93 05/08/2012 1:08 PM COMPOUNDER HELPER Temperature - - Respiratory Rate 20 05/08/2012 1:08 PM COMPOUNDER HELPER Oxygen Saturation - - Inhaled Oxygen Concentration - - Weight 98.8 kg (217 lb 13 oz) 05/08/2012 1:08 PM COMPOUNDER HELPER Height - - Body Mass Index 38.12 03/19/2012 9:08 AM COMPOUNDER HELPER documented in this encounter Medications at Time of Discharge Medication Sig Dispensed Refills Start Date End Date IBUPROFEN ORAL Take by mouth as needed. 0 011 documented as of this encounter Progress Notes Chandni Johnson - 05/08/2012 1:05 PM CST [id number] CHIEF COMPLAINT/REASON FOR VISIT This is a [...] any other questions or concerns. Chandni Johnson P.A.-C./[facility] Electronically Signed By: CHANDNI JOHNSON On: 05/09/2012 08:40 AM Source: [facility] MHSDOLBEYNONRADSYS Document Id: [id number] OUNDER HELPER documented in this encounter Miscellaneous Notes Miscellaneous - Chandni Johnson - 05/08/2012 2:38 PM CST Ambulatory Patient Summary [address] [place] [address] Visit Information Name: CANDY GRULLON [facility] Number: [id number] Current Date: 05/08/2012 14:38:14 Physicians Attending Provider: CHANDNI JOHNSON Primary Care Provider: WILLEM SAEED RN, BEATER ENGINEER HELPER Your Medications Here is a list of [...] BARRERA, Lars Davis Your Goals/Additional instructions: Source: [facility] POWERCHART Document Id: [id number] OUNDER HELPER Miscellaneous - Chandni Johnson - 05/08/2012 2:38 PM CST Ambulatory Depart Summary [address] [place] [address] Visit Information Name: CANDY GRULLON [facility] Number: [id number] Visit Date: 05/08/2012 14:38:13 Attending Provider: CHANDNI JOHNSON Primary Care Provider: WILLEM SAEED RN, BEATER ENGINEER HELPER CANDY GRULLON has been given the following [...] your provider for clarification. Additional Information: Source: [facility] POWERCHART Document Id: [id number] OUNDER HELPER Martin - Chandni Johnson - 05/08/2012 1:38 PM CST School or Work Excuse School or Work Excuse Entered On: 05/08/2012 13:39 COMPOUNDER HELPER Performed On: 05/08/2012 13:38 COMPOUNDER HELPER by CHANDNI JOHNSON School or Work Excuse Date Patient Seen : 05/08/2012 COMPOUNDER HELPER Comment : Candy was seen in the clinic today for x-rays. CHANDNI JOHNSON - 05/08/2012 13:38 COMPOUNDER HELPER Source: [facility] POWERCHART Document Id: [id number] OUNDER HELPER Miscellaneous - Rafia Castro L.P.N. - 05/08/2012 1:08 PM CST Adult Manager Endoscopy Intake/History Adult Manager Endoscopy Intake/History Entered On: 05/08/2012 13:14 COMPOUNDER HELPER Performed On: 05/08/2012 13:08 COMPOUNDER HELPER by RAFIA JETER LPN Intake Chief Complaint [...] Dosing Weight Clinic : 98.80kg RAFIA JETER BABBITT SPINNER - 05/08/2012 13:08 COMPOUNDER HELPER Subjective Pain Symptoms : Yes RAFIA JETER LPN - 05/08/2012 13:08 COMPOUNDER HELPER Pain Pain Assessment Grid Pain 1 Location : Chest Intensity : 8 RAFIA JETER LPN - 05/08/2012 13:08 COMPOUNDER HELPER Dependent Habits Tobacco Use/Currently Using : No Tobacco Use/Last 12 months : Yes Exposure to Tobacco Smoke : Patient smokes Smoking Status : Former smoker RAFIA JETER LPN - 05/08/2012 13:08 COMPOUNDER HELPER Tobacco Use Grid Type : Cigarettes Cigarette Use Packs/Day : 0.5 Last Use : 2 weeks ago RAFIA JETER LPN - 05/08/2012 13:08 COMPOUNDER HELPER Alcohol Use : Yes RAFIA JETER BABBITT SPINNER - 05/08/2012 13:08 COMPOUNDER HELPER Caffeine Use Grid Caffeine Use : Current Type : Soft drinks Frequency : Daily RAFIA JETER BABBITT SPINNER - 05/08/2012 13:08 COMPOUNDER HELPER Recreational Drug Use Grid Drug Use : None RAFIA JETER BABBITT SPINNER - 05/08/2012 13:08 COMPOUNDER HELPER Allergy Allergies (Active) Demerol HCl Estimated Onset Date: Unspecified ; Reactions: nausea ; Created By: RENEA MARTINEZ NP; Reaction Status: Active ; Category: Drug ; Substance: Demerol HCl ; Type: Allergy ; Updated By: RENEA MARTINEZ NP; Reviewed Date: 04/30/2012 8:19 COMPOUNDER HELPER hydrocodone-acetaminophen Estimated Onset Date: Unspecified ; Reactions: vomiting ; Created By: RENEA MARTINEZ NP; Reaction Status: Active ; Category: Drug ; Substance: hydrocodone-acetaminophen ; Type: Allergy ; Severity: Severe ; Updated By: RENEA MARTINEZ NP; Source: Patient ; Reviewed Date: 04/30/2012 8:20 COMPOUNDER HELPER Source: [facility] POWERCHART Document Id: [id number] OUNDER HELPER documented in this encounter Plan of Treatment Not on filedocumented as of this encounter Visit Diagnoses Not on filedocumented in this encounter
--- OUTSIDE RECORDS SUMMARY | 2022-02-16 09:57 | XMS_ITS | Encounter Summary ---
:1970 Author Organization [facility] Address [address] [place] [address] Care Team Providers Name Role Phone Unavailable [...]
--- OUTSIDE RECORDS SUMMARY | 2022-02-16 09:57 | XMS_ITS | Encounter Summary ---
:1970 Author Organization [facility] Address [address] [place] [address] Care Team Providers Name Role Phone Unavailable Primary Care Provider Unavailable Encounter Details Date Type Department Care Team Description 06/08/2014 Hospital Encounter HX [facility] Manuela Hi P.A.-C. Social History Tobacco [...] 161 cm (5' 3.39) 06/08/2014 8:52 AM FABRICATION LEAD Body Mass Index - - documented in this encounter Medications at Time of Discharge Medication Sig Dispensed Refills Start Date End Date IBUPROFEN ORAL Take by mouth as needed. 0 011 documented as of this encounter Consult Notes Manuela Brewer - 06/08/2014 8:40 AM CST [id number] Ms. Grullon is a very pleasant 43-year-old [...] BREWER PA-C On: 06/15/2014 11:03 AM Source: [facility] MHSDOLBEYNMICHELETS Document Id: [id number] ICATION LEAD documented in this encounter Miscellaneous Notes Miscellaneous - Manuela Brewer - 06/08/2014 12:11 PM CST Ambulatory Patient Summary [facility] [address], [address] [place], [place] [id number] Visit Information Name: CANDY GRULLON [facility] Number: [id number] Current Date: 06/08/2014 12:11:57 Physicians Attending Provider: MANUELA BREWER PA-C Primary Care Provider: WILLEM SAEED RN, DIRECTOR OF SPEECH PATHOLOGY CANDY GRULLON has been given the following [...] Appointments Date Time Location Provider 06/17/2014 09:45 [facility] Manuela Brewer PA-C Attention: Contact your local Clinic if further appointment detail needed. Your Goals/Additional instructions: Source: [facility] POWERCHART Document Id: [id number] ICATION LEAD Miscellaneous - Manuela Brewer - 06/08/2014 12:11 PM CST Ambulatory Discharge Medication List [facility] [address], [address] [place], [place] [id number] Visit Information Name: CANDY GRULLON [facility] Number: [id number] Visit Date: 06/08/2014 12:11:56 Attending Provider: MANUELA BREWER PA-C Primary Care Provider: WILLEM SAEED RN, DIRECTOR OF SPEECH PATHOLOGY CANDY GRULLON has been given the following [...] PA-C Signed On:08-JUN-2014 12:11:53 Additional Information: [facility] Document Id: [id number] ICATION LEAD Miscellaneous - Nieves Grullon R.N. - 06/08/2014 8:52 AM CST Adult Supervisor Policy Change Clerks Intake/History Adult Supervisor Policy Change Clerks Intake/History Entered On: 06/08/2014 8:53 FABRICATION LEAD Performed On: 06/08/2014 8:52 FABRICATION LEAD by DAVEY GRULLON intensive care anaesthetist Chief Complaint : #2 Supartz injection in left knee Height : 161 cm(Converted to: 5 ft 3 inch(es), 63 inch(es)) DAVEY GRULLON RN - 06/08/2014 8:52 FABRICATION LEAD General Info Information Given By : Patient Languages : Kenyan Is Patient Female and 13-50 no hysterectomy : No DAVEY GRULLON RN - 06/08/2014 8:52 FABRICATION LEAD Subjective Pain Symptoms : Yes DAVEY GRULLON RN - 06/08/2014 8:52 FABRICATION LEAD Pain Scale Pain Scale Verbal 0-10 : Open DAVEY GRULLON RN - 06/08/2014 8:52 FABRICATION LEAD Pain Pain Assessment Grid Pain 1 Location : Knee Laterality : Left Intensity : 4 DAVEY GRULLON RN - 06/08/2014 8:52 FABRICATION LEAD Dependent Habits Tobacco Use/Currently Using : Yes Exposure to Tobacco Smoke : Patient smokes Smoking Status : Current every day smoker DAVEY GRULLON RN - 06/08/2014 8:52 FABRICATION LEAD Tobacco Use Grid Type : Cigarettes Cigarette Use Packs/Day : 0.5 DAVEY GRULLON RN - 06/08/2014 8:52 FABRICATION LEAD Caffeine Use Grid Caffeine Use : Current Type : Soft drinks Frequency : Daily DAVEY GRULLON RN - 06/08/2014 8:52 FABRICATION LEAD Recreational Drug Use Grid Drug Use : None DAVEY GRULLON RN - 06/08/2014 8:52 FABRICATION LEAD ID Screen Drug Resistant Organism : No Travel Within Last 21 Days : No DAVEY GRULLON RN - 06/08/2014 8:52 FABRICATION LEAD Source: [facility] POWERCHART Document Id: [id number] FABRICATION LEAD!37 ICATION LEAD documented in this encounter Plan of Treatment Not on filedocumented as of this encounter Visit Diagnoses Not on filedocumented in this encounter
--- OUTSIDE RECORDS SUMMARY | 2022-02-16 09:57 | XMS_ITS | Encounter Summary ---
:1970 Author Organization [facility] Address [address] [place] [address] Care Team Providers Name Role Phone Unavailable Primary Care Provider Unavailable Encounter Details Date Type Department Care Team Description 01/07/2014 Hospital Encounter HX [facility] Kenneth Merino M.D. [address] [place] [address] (Wo rk) Social History Tobacco Use Types [...] Merino M.D. - 01/07/2014 2:11 PM CDT [id number] CHIEF COMPLAINT/REASON FOR VISIT A 43-year-old female, [...] MERINO MD On: 01/08/2014 08:40 AM Source: [facility] MHSDOLBEYNONRADSYS Document Id: [id number] documented in this encounter Procedure Notes Reji [...] CDT Preprocedural Pause Preprocedural Pause : 14:45 FOAM RUBBER CURER Start Time : 14:46 FOAM RUBBER CURER REJI DONALDSON LPN - 01/07/2014 16:07 CDT Correct Patient Identity : Patient verbalizes self Correct Procedure Site and Side : R side face Correct Procedure Site/Side Verified By : Patient/responsible constitution party, MD Site Marking : Yes REJI DONALDSON LPN - 01/07/2014 14:33 CDT Advance Directive Advanced Directives : Yes REJI DONALDSON LPN - 01/07/2014 14:33 CDT [facility] Document Id: [id number] CDT!22 documented in this encounter Plan of Treatment Not on filedocumented as of this encounter Visit Diagnoses Not on filedocumented in this encounter
--- OUTSIDE RECORDS SUMMARY | 2022-02-16 09:57 | XMS_ITS | Encounter Summary ---
:1970 Author Organization [facility] Address [address] [place] [address] Care Team Providers Name Role Phone Unavailable Primary Care Provider Unavailable Encounter Details Date Type Department Care Team Description 02/09/[address] [facility] FAMILY[facility] Jeffrey Jenkins M.D., M.P.H. [address] [place] [address] (Wo rk) Social History Tobacco [...] Jenkins M.D. - 02/09/2014 8:38 AM CDT [id number] CHIEF COMPLAINT/REASON FOR VISIT Sinus symptoms. HISTORY [...] JENKINS MD On: 02/11/2014 09:44 AM Source: [facility] MHSDOLBEYNONRADSYS Document Id: [id number] documented in this encounter Nursing Notes Sola [...] MCGOVERN LPN - 02/09/2014 9:09 CDT Source: [facility] POWERCHART Document Id: [id number] CDT!3 documented in this encounter Miscellaneous Notes Miscellaneous - Vickie Gloria L.PCarineNCarine - 02/09/2014 1:50 PM CDT Normal Results Letter 09 February 2014 CANDY GRULLON [address] [id number] Dear CANDY GRULLON, I am pleased to [...] 2014 This document has images extracted. Source: [facility] SignNowCHART Document Id: [id number] Electronically signed by Conversion, [facility] Corporate Legal Assistant [id number] at 09/18/2016 11:31 PM CDT Teresa Torres [...] 9:36 Radiology XR Chest 2 Views Source: [facility] [employer] Document Id: [id number] Electronically signed by Conversion, [facility] Corporate Legal Assistant [id number] at 09/18/2016 11:31 PM CDT [employer] - Teresa Jenkins M.D. - 02/09/2014 10:53 AM CDT Ambulatory Patient Summary [address] [place] [phone] Visit Information Name: CANDY GRULLON [facility] Number: [id number] Current Date: 02/09/2014 10:53:21 Physicians Attending Provider: TERESA JENKINS MD Primary Care Provider: WILLEM SAEED RN, PROPOSAL LEAD WRITER CANDY GRULLON has been given the following [...] day x 5 day(s) New Routed to [address] [address] * You have let us know that [...] appointment detail needed. Your Goals/Additional instructions: Source: [facility] POWERCHART Document Id: [id number] Miscellaneous - Teresa Jenkins M.D. - 02/09/2014 10:53 AM CDT Ambulatory Discharge Medication List [facility] [address], [address] [place] [phone] Visit Information Name: CANDY GRULLON [facility] Number: [id number] Visit Date: 02/09/2014 10:53:20 Attending Provider: TERESA JENKINS MD Primary Care Provider: WILLEM SAEED RN, PROPOSAL LEAD WRITER CANDY GRULLON has been given the following [...] day x 5 day(s) New Routed to [facility] [address] [address] * You have let us know that [...] MD Signed On:09-FEB-2014 10:53:12 Additional Information: Source: [facility] POWERCHART Document Id: [id number] Miscellaneous - Sola Mcgovern L.P.N. - 02/09/2014 9:07 AM CDT Adult Supervisor Small Appliance Assembly Intake/History Adult Supervisor Small Appliance Assembly Intake/History Entered On: 02/09/2014 9:09 CDT Performed [...] Information Given By : Patient Languages : Sierra Leonean Is Patient Female and 13-50 no hysterectomy [...] Soft drinks Frequency : Daily SOLA MCGOVERN [facility] - 02/09/2014 9:07 CDT Recreational Drug Use Grid Drug Use : None SOLA MCGOVERN [facility] - 02/09/2014 9:07 CDT Source: [employer] Document Id: [id number] CDT!47 documented in this encounter Plan of Treatment Not on filedocumented as of this encounter Visit Diagnoses Not on filedocumented in this encounter
--- OUTSIDE RECORDS SUMMARY | 2022-02-16 09:57 | XMS_ITS | Encounter Summary ---
:1970 Author Organization [facility] Address [address] [place] [address] Care Team Providers Name Role Phone Unavailable Primary Care Provider Unavailable Encounter Details Date Type Department Care Team Description 07/13/2014 Hospital Encounter HX [facility]ILY [facility] Otilia Johnson, FISHING TACKLE REPAIRER, C.N.P. [address] [place], [place] [address] (Wo rk) Social History [...] Johnson, R.N. - 07/13/2014 9:20 AM CDT [id number] CHIEF COMPLAINT/REASON FOR VISIT Pre-employment physical. HISTORY OF PRESENT ILLNESS Candy is a very pleasant 44-year-old female who comes into the clinic today requesting a pre-employment physical for her new position at [employer]. She states she worked at [employer] many years ago and is excited to return to her previous employer. She has been recently working at [place] [facility] [employer] have more regular consistent hours. She has no new medical concerns today. She denies any acute illnesses. She states she already completed her physical therapy evaluation as well as her urine drugscreen. She has no other concerns today. MEDICATIONS No home medications. ALLERGIES Acetaminophen/hydrocortisone combination and Demerol [facility]CI. PHYSICAL EXAMINATION Please see EMR for [employer] preemployment physical form. IMPRESSION/REPORT/PLAN Preemployment exam. PLAN: Candy is cleared for employment at [employer] pending the results of her urine drug test. She isplanning to start employment sometime the first part of July 2014. 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 The pre-employment physical form as well as the physical therapy evaluation form were faxed to [employer].All questions were answered. She left in no acute distress. Ready to learn. No apparent learning barriers were identified. Learning preferences include listening. Explained diagnosis and treatment plan. Patient/Child/Caregiver expressed understanding of the content. Isabelle Johnson NTung/mikey Electronically Signed By: ISABELLE JOHNSON [facility] On: 07/13/2014 09:41 PM Modified by and Electronically Signed by: ISABELLE JOHNSON [facility] On: 07/13/2014 09:41 PM Source: [facility] MHSDOLBEYNONRADSYS Document Id: [id number] documented in this encounter Miscellaneous Notes Miscellaneous [...] Status : Current every day smoker MARTINEZ SAEZN RECEIVABLE MANAGER - 07/13/2014 10:30 CDT Tobacco Use [...] CDT Psychosocial Domestic Abuse Concerns : None Rastafari Preference : Sabianist: [facility] ROSARIO MARTINEZ Padmini HEATH - 07/13/2014 10:30 CDT Advance Directive Advanced Directives : Yes Advance Directive Type : Living will Advance Directive Location : Scanned into EMR ROSARIO MARTINEZ [place] LPN - 07/13/2014 10:30 CDT Educ Needs Learning Style Preference Adult Grid Patient : None Family : None ROSARIO MARTINEZ Padmini HEATH - 07/13/2014 10:30 CDT [facility] Document Id: [id number] CDT!36 Miscellaneous - Martinez Saenz L.P.N. - 07/13/2014 10:30 AM CDT Meaningful Use Influenza Exclusion Meaningful Use Influenza Exclusion Entered On: 07/13/2014 10:30 CDT Performed On: 07/13/2014 10:30 CDT by MARTINEZ SAENZ LPN Influenza Vaccine Exclusion Influenza Vaccine Exclusion : Patient declined MARTINEZ SAENZ LPN - 07/13/2014 10:30 CDT Source: [facility] POWERCHART Document Id: [id number] CDT!3 Miscellaneous - Martinez Saenz L.P.N. - 07/13/2014 10:24 AM CDT Adult Foam Tank Laminator Intake/History Adult Foam Tank Laminator Intake/History Entered On: 07/13/2014 10:29 CDT Performed [...] Information Given By : Patient Languages : South Korean Is Patient Female and 13-50 no hysterectomy [...] SAENZ LPN - 07/13/2014 10:24 CDT Source: [facility] [employer] Document Id: [id number] CDT!41 documented in this encounter Plan of Treatment Not on filedocumented as of this encounter Visit Diagnoses Not on filedocumented in this encounter
--- OUTSIDE RECORDS SUMMARY | 2022-02-16 09:57 | XMS_ITS | Encounter Summary ---
:1970 Author Organization [facility] Address [address] [place] [address] Care Team Providers Name Role Phone Unavailable Primary Care Provider Unavailable Encounter Details Date Type Department Care Team Description 12/24/[address] [facility] Kenneth Merino M.D. [address] [place] [address] (Wo rk) Social History Tobacco Use Types [...] Merino M.D. - 12/24/2013 9:03 AM CDT [id number] A 43-year-old female postsurgical menopause age 24. [...] MERINO MD On: 12/24/2013 11:59 AM Source: [facility] MHSDOLBEYNONRADSYS Document Id: [id number] documented in this encounter Miscellaneous Notes Miscellaneous - Reji Donaldson L.P.N. - 12/24/2013 9:18 AM CDT Adult Pure Culture Operator Intake/History Adult Pure Culture Operator Intake/History Entered On: 12/24/2013 9:20 CDT [...] Information Given By : Patient Languages : Romansh Is Patient Female and 13-50 no hysterectomy [...] DONALDSON LPN - 12/24/2013 9:18 CDT Source: [employer] Document Id: [id number] CDT!42 documented in this encounter Plan of Treatment Not on filedocumented as of this encounter Visit Diagnoses Not on filedocumented in this encounter
--- OUTSIDE RECORDS SUMMARY | 2022-02-16 09:57 | XMS_ITS | Encounter Summary ---
:1970 Author Organization [facility] Address [address] [place] [address] Care Team Providers Name Role Phone Unavailable Primary Care Provider Unavailable Encounter Details Date Type Department Care Team Description 02/23/2012 Hospital Encounter HX [facility] XRAY Provider, Histori anahi Social History [...]
--- OUTSIDE RECORDS SUMMARY | 2022-02-16 09:57 | XMS_ITS | Encounter Summary ---
:1970 Author Organization [facility] Address [address] [place] [address] Care Team Providers Name Role Phone Unavailable Primary Care Provider Unavailable Encounter Details Date Type Department Care Team Description 06/01/2014 Hospital Encounter HX [facility] Manuela Brewer PCarineA.SiobhanC. Social History Tobacco Use Types Packs/Day Years [...] 161 cm (5' 3.39) 06/01/2014 8:02 AM SUPERVISOR FISHING Body Mass Index - - documented in this encounter Medications at Time of Discharge Medication Sig Dispensed Refills Start Date End Date IBUPROFEN ORAL Take by mouth as needed. 0 011 documented as of this encounter Consult Notes Manuela Brewer - 06/01/2014 7:58 AM CST [id number] Ms. Grullon is a very pleasant 43-year-old [...] half that time was spent in direct poox-of-kggd counseling in educating the patient about her condition as well treatment options available to her. Manuela Brewer P.A.-C./mikey Electronically Signed By: MANUELA BREWER PA-C On: 06/04/2014 02:32 PM Source: [facility] MHSDOLBEYNONRADSYS Document Id: [id number] RVISOR FISHING documented in this encounter Miscellaneous Notes Miscellaneous - Manuela Brewer - 06/01/2014 12:55 PM CST Ambulatory Patient Summary [facility] [address], [address] [place], [place] [phone] Visit Information Name: CANDY GRULLON [facility] Number: [id number] Current Date: 06/01/2014 12:55:10 Physicians Attending Provider: MANUELA BREWER PA-C Primary Care Provider: WILLEM SAEED RN, BONE CRUSHER CANDY GRULLON has been given the following [...] in case of emergency. Electronically Signed By: MANUEAL BREWER PA-C Signed On:01-JUN-2014 12:55:07 Your Allergies & Intolerances Substance Reaction Symptoms Category Comments Demerol HCl nausea Drug acetaminophen-HYDROcodone vomiting Drug Your Problem List Problem Status Onset Comments Nicotine dependence Active 1982 05/31/11 date of onset unknown Throat Pain Active 06/27/2012 Boil of skin and subcutaneous tissue NOS Active 03/28/2013 Your Upcoming Appointments Date Time Location Provider 06/08/2014 08:45 [facility] Manuela Mcdaniel PA-C 06/17/2014 09:45 [facility] Manuela Mcdaniel PA-C Attention: Contact your local Clinic if further appointment detail needed. Your Goals/Additional instructions: Source: [facility] POWERCHART Document Id: [id number] RVISOR FISHING Miscellaneous - Manuela Brewer - 06/01/2014 12:55 PM CST Ambulatory Discharge Medication List [facility] [address], [address] [place], [place] [phone] Visit Information Name: CANDY GRULLON [facility] Number: [id number] Visit Date: 06/01/2014 12:55:09 Attending Provider: MANUELA BREWER PA-C Primary Care Provider: WILLEM SAEED RN, BONE CRUSHER CANDY GRULLON has been given the following [...] PA-C Signed On:01-JUN-2014 12:55:07 Additional Information: Source: [facility] POWERCHART Document Id: [id number] RVISOR FISHING Miscellaneous - Magda Barrera L.P.N. - 06/01/2014 8:02 AM CST Adult Meeting Specialist Intake/History Adult Meeting Specialist Intake/History Entered On: 06/01/2014 8:04 SUPERVISOR FISHING Performed On: 06/01/2014 8:02 SUPERVISOR FISHING by MAGDA BARRERA LPN Intake Chief Complaint : Patient here for recheck on left knee, had an Left knee arthroscopy done 03-19-12,has had pain since last November, no known injury, pain 12/31 Height : 161 cm(Converted to: 5 ft 3 inch(es), 63 inch(es)) MAGDA BARRERA LPN - 06/01/2014 8:02 SUPERVISOR FISHING General Info Information Given By : Patient Preferred Communication Mode : Verbal Languages : Dominican Is Patient Female and 13-50 no hysterectomy : No MAGDA BARRERA LPN - 06/01/2014 8:02 SUPERVISOR FISHING Subjective Pain Symptoms : Yes MAGDA BARRERA LPN 06/01/2014 8:02 SUPERVISOR FISHING Pain Scale Pain Scale Verbal 0-10 : Open MAGDA BARRERA LPN 06/01/2014 8:02 SUPERVISOR FISHING Pain Pain Assessment Grid Pain 1 Location : Knee Laterality : Left Intensity : 9 MAGDA BARRERA LPN 06/01/2014 8:02 SUPERVISOR FISHING Dependent Habits Tobacco Use/Currently Using : Yes Exposure to Tobacco Smoke : Patient smokes Smoking Status : Current every day smoker MAGDA BARRERA LPN 06/01/2014 8:02 SUPERVISOR FISHING Tobacco Use Grid Type : Cigarettes Cigarette Use Packs/Day : 0.5 MAGDA BARRERA LPN 06/01/2014 8:02 SUPERVISOR FISHING Caffeine Use Grid Caffeine Use : Current Type : Soft drinks Frequency : Daily MAGDA BARRERA LPN 06/01/2014 8:02 SUPERVISOR FISHING Recreational Drug Use Grid Drug Use : None MAGDA BARRERA LPN 06/01/2014 8:02 SUPERVISOR FISHING ID Screen Drug Resistant Organism : No Travel Within Last 21 Days : No MAGDA BARRERA LPN 06/01/2014 8:02 SUPERVISOR FISHING Source: [employer] Document Id: [id number] SUPERVISOR FISHING!38 RVISOR FISHING documented in this encounter Plan of Treatment Not on filedocumented as of this encounter Visit Diagnoses Not on filedocumented in this encounter
--- OUTSIDE RECORDS SUMMARY | 2022-02-16 09:57 | XMS_ITS | Encounter Summary ---
:1970 Author Organization [facility] Address [address] [place] [address] Care Team Providers Name Role Phone Unavailable Primary Care Provider Unavailable Encounter Details Date Type Department Care Team Description 03/28/2013 Hospital En[facility] ME Zita Saeed APRN, C.N.P., D. N.P. [address] [place] [address] (Wo rk) Social History Tobacco Use Types Packs/Day Years Used Date Smoking Tobacco: Never Assessed Sex Assigned at Date Recorded Not on file documented as of this encounter Last Filed Vital Signs Vital Sign Reading Time Taken Comments Blood Pressure 122/70 03/28/2013 8:16 AM SCIENTIFIC PUBLICATIONS EDITOR Pulse 78 03/28/2013 8:16 AM SCIENTIFIC PUBLICATIONS EDITOR Temperature - - Respiratory Rate 16 03/28/2013 8:16 AM SCIENTIFIC PUBLICATIONS EDITOR Oxygen Saturation - - Inhaled Oxygen Concentration - - Weight 101 kg (223 lb 1.7 oz) 03/28/2013 8:16 AM SCIENTIFIC PUBLICATIONS EDITOR Height 161 cm (5' 3.39) 03/28/2013 8:16 AM SCIENTIFIC PUBLICATIONS EDITOR Body Mass Index 39.04 03/28/2013 8:16 AM SCIENTIFIC PUBLICATIONS EDITOR documented in this encounter Medications at Time of Discharge Medication Sig Dispensed Refills Start Date End Date IBUPROFEN ORAL Take by mouth as needed. 0 011 documented as of this encounter Progress Notes Zita Saeed APRN, C.N.P. - 03/28/2013 8:03 AM CST [id number] CHIEF COMPLAINT/REASON FOR VISIT Recurrent boils. HISTORY [...] Herzog/aysha Electronically Signed By: ZITA SAEED RN, PULP BLEACHER On: 03/31/2013 01:14 PM Source: [facility] MHSDOLBEYNONRADSYS Document Id: [id number] NTIFIC PUBLICATIONS EDITOR documented in this encounter Miscellaneous Notes Miscellaneous - Zita Saeed APRN, C.N.P. - 03/31/2013 7:57 AM CST Normal Results Letter 31 March 2013 CANDY GRULLON [address] [address] [place] [id number] Dear CANDY CHOWSON, Your culture result from the wound showed staph. The antibiotic prescribed should cover this. Pleasefollow up with us as we discussed during your visit or sooner if you have any concerns. If you have questions or concerns, please do not hesitate to call our office. Result Name Current Result Culture Wound Aerobic POS 03/28/2013 Sincerely, ZITA SAEED [address] [place] [address] Electronic Signature Electronically Signed By: ZITA SAEED RN, PULP BLEACHER On: 31 March 2013 This document has images extracted. Source: [facility] POWERCHART Document Id: [id number] Electronically signed by Maryann [facility] Sound Engineering Technician [id number] at 09/20/2016 1:39 PM CDT Miscellaneous - Zita Saeed APRN, C.N.P. - 03/28/2013 8:55 AM CST Ambulatory Patient Summary [address] [address] Visit Information Name: CANDY GRULLON [facility] Number: [id number] Current Date: 03/28/2013 08:55:45 Physicians Attending Provider: ZITA SAEED RN, PULP BLEACHER Primary Care Provider: ZITA SAEED RN, PULP BLEACHER CANDY GRULLON has been given the following [...] appointment detail needed. Your Goals/Additional instructions: Source: [facility] POWERCHART Document Id: [id number] NTIFIC PUBLICATIONS EDITOR Miscellaneous - Zita Saeed APRN, C.N.P. - 03/28/2013 8:55 AM CST Ambulatory Depart Summary [address] [address] Visit Information Name: CANDY GRULLON [facility] Number: [id number] Visit Date: 03/28/2013 08:55:44 Attending Provider: ZITA SAEED RN, PULP BLEACHER Primary Care Provider: ZITA SAEED RN, PULP BLEACHER CANDY GRULLON has been given the following [...] in case of emergency. Additional Information: Source: [facility] POWERCHART Document Id: [id number] NTIFIC PUBLICATIONS EDITOR Miscellaneous - Zita Saeed APRN, C.N.P. - 03/28/2013 8:53 AM CST Work Excuse 28 March 2013 CANDY GRULLON [address] [id number] Dear CANDY GRULLON, You were examined in [...] 03/29/13 Notes: _ Sincerely, ZITA SAEED [address] [place] [address] Electronic Signature Electronically Signed By: ZITA SAEED RN, PULP BLEACHER On: 28 March 2013 This document has images extracted. Source: [facility] Bravofly Document Id: [id number] Electronically signed by Maryann [facility] Sound Engineering Technician [id number] at 09/20/2016 1:39 PM CDT Abbeycellaneous - Jasmin Douglas LCarineP.N. - 03/28/2013 8:22 AM CST Meaningful Use Influenza Exclusion Meaningful Use Influenza Exclusion Entered On: 03/28/2013 8:22 SCIENTIFIC PUBLICATIONS EDITOR Performed On: 03/28/2013 8:22 SCIENTIFIC PUBLICATIONS EDITOR by JASMIN DOUGLAS LPN Influenza Vaccine Exclusion Influenza Vaccine Exclusion : Patient declined JASMIN DOUGLAS LPN - 03/28/2013 8:22 SCIENTIFIC PUBLICATIONS EDITOR Source: [facility] Bravofly Document Id: [id number] SCIENTIFIC PUBLICATIONS EDITOR!3 NTIFIC PUBLICATIONS EDITOR Abbeycellkatie - Jasmin Douglas L.P.N. - 03/28/2013 8:22 AM CST Health Assessment Health Assessment Entered On: 03/28/2013 8:22 SCIENTIFIC PUBLICATIONS EDITOR Performed On: 03/28/2013 8:22 SCIENTIFIC PUBLICATIONS EDITOR by JASMIN DOUGLAS LPN Health Assessment Complete Health Assessment Complete or Modified : Annual Health Assessment Annual Health Assessment Completed : Yes JASMIN DOUGLAS LPN - 03/28/2013 8:22 SCIENTIFIC PUBLICATIONS EDITOR Nutrition Nutrition Risk Factors by History Adult : None JASMIN DOUGLAS LPN - 03/28/2013 8:22 SCIENTIFIC PUBLICATIONS EDITOR Functional Current Daily Living Assistance : None JASMIN DOUGLAS LPN - 03/28/2013 8:22 SCIENTIFIC PUBLICATIONS EDITOR Dependent Habits Tobacco Use/Currently Using : Yes Exposure to Tobacco Smoke : Patient smokes Smoking Status : Current every day smoker JASMIN DOUGLAS LPN - 03/28/2013 8:22 SCIENTIFIC PUBLICATIONS EDITOR Tobacco Use Grid Type : Cigarettes Cigarette Use Packs/Day : 0.5 Last Use : 2 weeks ago JASMIN DOUGLAS LPN - 03/28/2013 8:22 SCIENTIFIC PUBLICATIONS EDITOR Caffeine Use Grid Caffeine Use : Current Type : Soft drinks Frequency : Daily JASMIN DOUGLAS LPN - 03/28/2013 8:22 SCIENTIFIC PUBLICATIONS EDITOR Recreational Drug Use Grid Drug Use : None JASMIN DOUGLAS LPN - 03/28/2013 8:22 SCIENTIFIC PUBLICATIONS EDITOR Psychosocial Domestic Abuse Concerns : None JASMIN DOUGLAS LPN - 03/28/2013 8:22 SCIENTIFIC PUBLICATIONS EDITOR Advance Directive Advanced Directives : Yes JASMIN DOUGLAS LPN - 03/28/2013 8:22 SCIENTIFIC PUBLICATIONS EDITOR Educ Needs Learning Style Preference Adult Grid Patient : Demonstration, Printed materials Family : None JASMIN DOGULAS LPN - 03/28/2013 8:22 SCIENTIFIC PUBLICATIONS EDITOR Source: [facility] Bravofly Document Id: [id number] SCIENTIFIC PUBLICATIONS EDITOR!33 NTIFIC PUBLICATIONS EDITOR Miscellaneous - Jasmin Douglas LCarinePCarineNCarine - 03/28/2013 8:16 AM CST Adult Rejogger Intake/History Adult Rejogger Intake/History Entered On: 03/28/2013 8:21 SCIENTIFIC PUBLICATIONS EDITOR Performed On: 03/28/2013 8:16 SCIENTIFIC PUBLICATIONS EDITOR by JASMIN DOUGLAS LPN Intake Chief Complaint [...] kg/m2 JASMIN DOUGLAS LPN - 03/28/2013 8:16 SCIENTIFIC PUBLICATIONS EDITOR General Info Information Given By : Patient Preferred Communication Mode : Verbal Languages : Nepali JASMIN DOUGLAS [facility] - 03/28/2013 8:16 SCIENTIFIC PUBLICATIONS EDITOR Subjective Pain Symptoms : Yes EVERETTE DOUGLASTANNER [place] [facility] - 03/28/2013 8:16 SCIENTIFIC PUBLICATIONS EDITOR Pain Pain Assessment Grid Pain 1 Location : Breast Laterality : Left Intensity : 3 EVERETTE DOUGLASTANNER [place] [facility] - 03/28/2013 8:16 SCIENTIFIC PUBLICATIONS EDITOR Dependent Habits Tobacco Use/Currently Using : Yes Tobacco Use/Advised to Quit : Yes Exposure to Tobacco Smoke : Patient smokes Smoking Status : Current every day smoker DOUGLAS, JASMIN R [facility] - 03/28/2013 8:16 SCIENTIFIC PUBLICATIONS EDITOR Tobacco Use Grid Type : Cigarettes Cigarette Use Packs/Day : 0.5 Last Use : 2 weeks ago JASMIN DOUGLAS [facility] - 03/28/2013 8:16 SCIENTIFIC PUBLICATIONS EDITOR Alcohol Use : Yes SEN JASMIN R [facility] - 03/28/2013 8:16 SCIENTIFIC PUBLICATIONS EDITOR Caffeine Use Grid Caffeine Use : Current Type : Soft drinks Frequency : Daily JASMIN DOUGLAS [facility] - 03/28/2013 8:16 SCIENTIFIC PUBLICATIONS EDITOR Recreational Drug Use Grid Drug Use : None SEN JASMIN [place] [facility] - 03/28/2013 8:16 SCIENTIFIC PUBLICATIONS EDITOR Source: [facility] POWERCHART Document Id: [id number] SCIENTIFIC PUBLICATIONS EDITOR!49 NTIFIC PUBLICATIONS EDITOR documented in this encounter Plan of Treatment Not on filedocumented as of this encounter Procedures Procedure Name Priority Date/Time Associated Diagnosis Comme nts BACTERIAL CULTURE, Routine 03/28/2013 8:54 AM Res ults for this AEROBIC SCIENTIFIC PUBLICATIONS EDITOR procedure are i n the results section. documented in this encounter Results (ABNORMAL) Bacterial Culture, Aerobic (03/28/2013 8:54 AM SCIENTIFIC PUBLICATIONS EDITOR) Patholo gist Method Time Signature Wound Culture [...] Laterality Skin (Axilla, 03/28/2013 8:54 AM Right) SCIENTIFIC PUBLICATIONS EDITOR Organism Antibiotic Method Susceptibility Staphylococcus lugdunensis Ciprofloxacin [...]
--- OUTSIDE RECORDS SUMMARY | 2022-02-16 09:57 | XMS_ITS | Encounter Summary ---
:1970 Author Organization [facility] Address [address] [place] [address] Care Team Providers Name Role Phone Unavailable Primary Care Provider Unavailable Encounter Details Date Type Department Care Team Description 06/21/2015 Hospital Encounter HX [facility] ME Otilia Johnson, METAL SANDER, C.N.P. [address] [place], [place] [address] (Wo rk) Social History Tobacco Use Types Packs/Day Years Used Date Smoking Tobacco: Never Assessed Sex Assigned at Date Recorded Not on file documented as of this encounter Last Filed Vital Signs Vital Sign Reading Time Taken Comments Blood Pressure 135/79 06/21/2015 1:30 PM GRASS FARM LABORER Pulse 75 06/21/2015 1:30 PM GRASS FARM LABORER Temperature - - Respiratory Rate - - Oxygen Saturation - - Inhaled Oxygen Concentration - - Weight - - Height 162 cm (5' 3.78) 06/21/2015 1:30 PM GRASS FARM LABORER Body Mass Index - - documented in this encounter Medications at Time of Discharge Medication Sig Dispensed Refills Start Date End Date IBUPROFEN ORAL Take by mouth as needed. 0 011 documented as of this encounter Progress Notes Isabelle Johnson, R.N. - 06/21/2015 1:16 PM CST [id number] CHIEF COMPLAINT/REASON FOR VISIT Breast pain. HISTORY [...] to use warm compresses as well as mijf-itb-owlgwrm pain analgesics for symptom management. She was [...] by and Electronically Signed by: ISABELLE JOHNSON GLASS INSTALLER On: 06/27/2015 07:58 PM Source: [facility] MHSDOLBEYNONRADSYS Document Id: [id number] S FARM LABORER documented in this encounter Miscellaneous Notes Miscellaneous - Kianna Nickerson Susan - 12/01/2016 10:43 AM CDT Health Maintenance Reminder December 01, 2016 CANDY GRULLON [address] [address] [place] [phone] Dear CANDY GRULLON, We have developed a [...] visit with us more convenient. Please call [phone] to schedule services that are past due or that may shortly become due (thank you if you have already done so). We will follow up in three to six months should you have more services to schedule at that time. If you have already received any of the listed past due or upcoming services outside of [facility], please call [phone] to add them to your medical record. You may want to consider contacting your health insurance company to make sure these services are covered and find out if there will be any tyc-cw-aaryxz expense. If you have any questions about the services listed above, or if you are no longer receiving care from [facility], please contact us at [phone]. Thank you for partnering to provide you with the best care possible. We encourage you to set up your Patient Online Services account [email or web address], where you can communicate in a convenient way with us, schedule appointments, receive lab results and more. To set up your account, you will need your [facility] Number, which is [id number]. Thank you for choosing the Isabelle Johnson C.N.P., R.N. care team for your health care needs! You are receiving this notice based on [facility]'s recommended standard for preventive care and ongoing condition-specific services you may need. If you have completed or do not believe you need these services, please contact your provider or care team to discuss this further. Sincerely, KIANNA NICKERSON Electronic Signature Electronically Signed By: KIANNA NICKERSON On: December 01, 2016 This document has images extracted. Source: [facility] InogenCHART Document Id: [id number] Isabelle Ricardo R.N. - 06/21/2015 2:14 PM CST Work Excuse 21 June 2015 CANDY GRULLON [id number] [place] [id number] Dear CANDY GRULLON, You were examined in [...] 24, 2015 Notes: _ Sincerely, ISABELLE JOHNSON [address] [place] [address] Electronic Signature Electronically Signed By: ISABELLE JOHNSON GLASS INSTALLER On: 21 June 2015 This document has images extracted. Source: [facility] InogenCHART Document Id: [id number] Electronically signed by Maryann [facility] Medicine And Health Service Manager [id number] at 09/16/2016 8:18 AM CDT Isabelle Ricardo R.N. - 06/21/2015 2:13 PM CST Ambulatory Patient Summary [address] [place], [place] [phone] Visit Information Name: CANDY GRULLON [facility] Number: [id number] Current Date: 06/21/2015 14:13:02 Physicians [...] x 10 day(s) New Routed to [address] [address] ibuprofen (Advil) Oral, as needed Stop Taking [...] of emergency. Electronically Signed By: ISABELLE JOHNSON GLASS INSTALLER Signed On:21-JUN-2015 14:12:47 Your Allergies & Intolerances [...] if you dont have one. Go to [email or web address] and click on Create Your Account. Then, follow the directions to complete the online form. Youll be asked for your [facility] number which you can find at the top of this document. Your Goals/Additional instructions: Source: [facility] POWERCHART Document Id: [id number] S FARM LABORER Miscellaneous - Isabelle Johnson R.N. - 06/21/2015 2:13 PM CST Ambulatory Discharge Medication List [address] [id number] Visit Information Name: CANDY GRULLON [facility] Number: [id number] Visit Date: 06/21/2015 14:13:00 Attending Provider: ISABELLE JOHNSON GLASS INSTALLER Primary Care Provider: ISABELLE JOHNSON GLASS INSTALLER CANDY GRULLON has been given the following [...] x 10 day(s) New Routed to [address] [phone] ibuprofen (Advil) Oral, as needed Stop Taking [...] of emergency. Electronically Signed By: ISABELLE JOHNSON GLASS INSTALLER Signed On:21-JUN-2015 14:12:47 Additional Information: Source: [facility] POWERCHART Document Id: [id number] S FARM LABORER Miscellaneous - Zoey Rod L.P.N. - 06/21/2015 1:30 PM CST Adult Rug Clipper Intake/History Adult Rug Clipper Intake/History Entered On: 06/21/2015 13:35 GRASS FARM LABORER Performed On: 06/21/2015 13:30 GRASS FARM LABORER by ZOEY ROD Intake Chief Complaint : [...] 64 inch(es)) ZOEY ROD - 06/21/2015 13:30 GRASS FARM LABORER General Info Information Given By : Patient Languages : Bahraini Is Patient Female and 13-50 no hysterectomy : No ZOEY ROD - 06/21/2015 13:30 GRASS FARM LABORER Subjective Pain Symptoms : Yes ZOEY ROD - 06/21/2015 13:30 GRASS FARM LABORER Pain Scale Pain Scale Verbal 0-10 : Open ZOEY ROD - 06/21/2015 13:30 GRASS FARM LABORER Pain Pain Assessment Grid Pain 1 Location : Breast Laterality : Left Intensity : 5 ZOEY ROD - 06/21/2015 13:30 GRASS FARM LABORER Dependent Habits Exposure to Tobacco Smoke : Patient smokes Smoking Status : Current every day smoker Tobacco 2A : Yes Tobacco Use/Currently Using : Yes Tobacco Use/Last 30 Days : Yes Tobacco Use/Last 12 months : Yes Type : Cigarettes: Less than 20 per day Tobacco Use/Advised to Quit : Yes Alcohol Use : Yes ZOEY ROD - 06/21/2015 13:30 GRASS FARM LABORER Caffeine Use Grid Caffeine Use : Current Type : Soft drinks Frequency : Daily ZOEY ROD - 06/21/2015 13:30 GRASS FARM LABORER Recreational Drug Use Grid Drug Use : None ZOEY ROD - 06/21/2015 13:30 GRASS FARM LABORER Source: [facility] DiscGenics Document Id: [id number] GRASS FARM LABORER!46 S FARM LABORER documented in this encounter Plan of Treatment Not on filedocumented as of this encounter Visit Diagnoses Not on filedocumented in this encounter
--- OUTSIDE RECORDS SUMMARY | 2022-02-16 09:57 | XMS_ITS | Encounter Summary ---
:1970 Author Organization [facility] Address [address] [place] [address] Care Team Providers Name Role Phone Unavailable Primary Care Provider Unavailable Encounter Details Date Type Department Care Team Description 06/27/2012 Hospital Encounter HX [facility] ME April Dwyer, N.P. [address] [place] [address] (Wo rk) Social History Tobacco Use Types Packs/Day Years Used Date Smoking Tobacco: Never Assessed Sex Assigned at Date Recorded Not on file documented as of this encounter Last Filed Vital Signs Vital Sign Reading Time Taken Comments Blood Pressure 124/74 06/27/2012 10:42 AM MANAGER MOBILITY Pulse 68 06/27/2012 10:42 AM MANAGER MOBILITY Temperature - - Respiratory Rate 16 06/27/2012 10:42 AM MANAGER MOBILITY Oxygen Saturation - - Inhaled Oxygen Concentration - - Weight 98.8 kg (217 lb 13 oz) 06/27/2012 10:42 AM MANAGER MOBILITY Height - - Body Mass Index 38.12 03/19/2012 9:08 AM MANAGER MOBILITY documented in this encounter Medications at Time of Discharge Medication Sig Dispensed Refills Start Date End Date IBUPROFEN ORAL Take by mouth as needed. 0 011 documented as of this encounter Progress Notes Renea Dwyer, N.P. - 06/27/2012 10:29 AM CST [id number] CHIEF COMPLAINT/REASON FOR VISIT Sore throat. HISTORY [...] understanding of the content Chanel Zaragoza/aysha DOCID: [id number] Electronically Signed By: RENEA DWYER NP On: 07/01/2012 09:28 AM Source: [facility] MHSDOLBEYNCASPER Document Id: [id number] documented in this encounter Miscellaneous Notes Miscellaneous - Renea Dwyer N.P. - 06/27/2012 1:09 PM CST Ambulatory Patient Summary [address] [address] Visit Information Name: CANDY GRULLON [facility] Number: [id number] Current Date: 06/27/2012 13:09:26 Physicians Attending Provider: RENEA DWYER FISHER TRAMMEL NET Primary Care Provider: WILLEM SAEED RN, [facility] Your Medications Here is a [...] No Appointments found Your Goals/Additional instructions: Source: [facility] POWERCHART Document Id: [id number] GER MOBILITY Miscellaneous - Renea Dwyer N.P. - 06/27/2012 1:09 PM CST Ambulatory Depart Summary [address] [address] Visit Information Name: CANDY GRULLON [facility] Number: [id number] Visit Date: 06/27/2012 13:09:25 Attending Provider: RENEA DWYER FISHER TRAMMEL NET Primary Care Provider: WILLEM SAEED RN, JUNIOR SALES ASSISTANT CANDY GRULLON has been given the following [...] your provider for clarification. Additional Information: Source: [facility] POWERCHART Document Id: [id number] GER MOBILITY Miscellaneous - Martinez Saenz LCarineP.N. - 06/27/2012 10:42 AM CST Adult Privacy Analyst Intake/History Adult Privacy Analyst Intake/History Entered On: 06/27/2012 10:45 MANAGER MOBILITY Performed On: 06/27/2012 10:42 MANAGER MOBILITY by MARTINEZ SAENZ LPN Intake Chief Complaint [...] 98.80kg MARTINEZ SAENZ LPN - 06/27/2012 10:42 MANAGER MOBILITY General Info Information Given By : Patient Languages : Thai MARTINEZ SAENZ [facility] 06/27/2012 10:42 MANAGER MOBILITY Subjective Pain Symptoms : Yes MARTINEZ SAENZ [facility] - 06/27/2012 10:42 MANAGER MOBILITY Pain Pain Assessment Grid Pain 1 Location : Throat Laterality : Bilateral Intensity : 8 MARTINEZ SAENZ [facility] - 06/27/2012 10:42 MANAGER MOBILITY Dependent Habits Tobacco Use/Currently Using : Yes Tobacco Use/Advised to Quit : Yes Exposure to Tobacco Smoke : Patient smokes Smoking Status : Current every day smoker ROSARIO MARTINEZ [place] [facility] - 06/27/2012 10:42 MANAGER MOBILITY Tobacco Use Grid Type : Cigarettes Cigarette Use Packs/Day : 0.5 Last Use : 2 weeks ago MARTINEZ SAENZ [facility] - 06/27/2012 10:42 MANAGER MOBILITY Caffeine Use Grid Caffeine Use : Current Type : Soft drinks Frequency : Daily MARTINEZ SAENZ [facility] 06/27/2012 10:42 MANAGER MOBILITY Recreational Drug Use Grid Drug Use : None MARTINEZ SAENZ [facility] 06/27/2012 10:42 MANAGER MOBILITY Allergy Allergies (Active) Demerol HCl Estimated Onset Date: Unspecified ; Reactions: nausea ; Created By: RENEA DWYER NP; Reaction Status: Active ; Category: Drug ; Substance: Demerol HCl ; Type: Allergy ; Updated By: RENEA DWYER NP; Reviewed Date: 05/08/2012 13:14 MANAGER MOBILITY hydrocodone-acetaminophen Estimated Onset Date: Unspecified ; Reactions: vomiting ; Created By: RENEA DWYER NP; Reaction Status: Active ; Category: Drug ; Substance: hydrocodone-acetaminophen ; Type: Allergy ; Severity: Severe ; Updated By: RENEA DWYER NP; Source: Patient ; Reviewed Date: 05/08/2012 13:14 MANAGER MOBILITY Source: [facility] POWERCHART Document Id: [id number] GER MOBILITY documented in this encounter Plan of Treatment Not on filedocumented as of this encounter Procedures Procedure Name Priority Date/Time Associated Diagnosis Comme nts RAPID STREP A Routine 06/27/2012 10:55 AM Results for this SCREEN MANAGER MOBILITY procedure are i n the results section. RAPID STREP A Routine 06/27/2012 10:50 AM Results for this SCREEN MANAGER MOBILITY procedure are i n the results section. documented in this encounter Results Rapid Strep A Screen (06/27/2012 10:55 AM MANAGER MOBILITY) [facility] Method Time Signature HXRapid Strep POWERCHART Confirmation HXPre Negative for POWERCHART Group A Strep by culture. HXFinal Negative for POWERCHART Group A Strep by culture. Specimen Anatomical Collection Method Collection Time Receive d Time (Source) Location / / Volume Laterality Throat 06/27/2012 10:55 06/27/2012 AM MANAGER MOBILITY 10:55 AM MANAGER MOBILITY Renea Dwyer N.P. LAB MICROBIOLOGY - GENERAL O THU Performing Organization Address City/State/[facility] Code Phon e Number POWERCHART Rapid Strep A Screen (06/27/2012 10:50 AM MANAGER MOBILITY) [facility] Method Time Signature HXStrep A POWERCHART Screen Rapid HXFinal Negative for POWERCHART Strep Group A by rapid screen. HXFinal Culture POWERCHART confirmation to follow. Specimen (Source) Anatomical Collection Method Collection Time Re ceived Time Location / / Volume Laterality Throat 06/27/2012 10:50 AM MANAGER MOBILITY Renea Dwyer N.P. LAB MICROBIOLOGY - GENERAL O THU Performing Organization Address City/State/ZIP Code Phon e Number POWERCHART documented in this encounter Visit Diagnoses Not on filedocumented in this encounter
--- OUTSIDE RECORDS SUMMARY | 2022-02-16 09:57 | XMS_ITS | Encounter Summary ---
:1970 Author Organization [facility] Address [address] [place] [address] Care Team Providers Name Role Phone Unavailable Primary Care Provider Unavailable Encounter Details Date Type Department Care Team Description 02/04/2014 Hospital Encounter HX [facility] Geri Holt M.D. [address] [place] [address] (Wo rk) Social History Tobacco [...] # 6 tab(s), 1 Refill(s), Acute, Pharmacy: [facility] Electronically Signed By: GERI HOLT MD On: 02/04/2014 09:58 AM Source: [facility] POWER[facility]ART Document Id: [id number] documented in this encounter Nursing Notes Geri [...] will not help a viral infection. ?? [id number] [facility], [address] [place] [id number]. All rights reserved. This information is not intended as a substitute for professional medical care. Always follow your healthcare professional's instructions. This document has images extracted. Please consider using [employer] for all your patient education needs. Source: [facility] P[facility] Document Id: [id number] documented in this encounter Miscellaneous Notes Miscellaneous - Geri Holt M.D. - 02/04/2014 9:59 AM CDT Ambulatory Patient Summary [facility] [address], [address] [place] [phone] Visit Information Name: JAYDA GRULLON [facility] Number: [id number] Current Date: 02/04/2014 09:59:33 Physicians Attending Provider: GERI HOLT MD Primary Care Provider: WILLEM SAEED RN, LIQUOR BRIDGE OPERATOR JAYDA GRULLON has been given the [...] / Wheezing New Routed to [facility] [address] [id number] azithromycin (Zithromax Z-Luis 250 mg oral tablet) 2 tablets on day 1, then 1 tablet on days 2-5, Oral, as directed x 5 day(s) New Routed to [facility] [address] [phone] ibuprofen (Advil) Oral, as needed Stop Taking [...] will not help a viral infection. ?? [id number] [facility], [address] [place] [address], [place] [address]. All rights reserved. This information is not intended as a substitute for professional medical care. Always follow your healthcare professional's instructions. Your Goals/Additional instructions: This document has images extracted. Please consider using [employer] for all your patient education needs. Source: [facility] Document Id: [id number] Miscellaneous - Geri Holt M.D. - 02/04/2014 9:59 AM CDT Ambulatory Discharge Medication List [facility] [address], [address] [place] [phone] Visit Information Name: JAYDA GRULLON [facility] Number: [id number] Visit Date: 02/04/2014 09:59:32 Attending Provider: GERI HOLT MD Primary Care Provider: WILLEM SAEED RN, LIQUOR BRIDGE OPERATOR JAYDA GRULLON has been given the [...] / Wheezing New Routed to [facility] [address] [id number] azithromycin (Zithromax Z-Luis 250 mg oral tablet) 2 tablets on day 1, then 1 tablet on days 2-5, Oral, as directed x 5 day(s) [facility] [address] [phone] ibuprofen (Advil) Oral, as needed Stop Taking [...] MD Signed On:04-FEB-2014 09:59:16 Additional Information: Source: [facility] [employer] Document Id: [id number] Miscellaneous - Geri Holt M.D. - 02/04/2014 9:56 AM CDT Normal Results Letter 04 February 2014 JAYDA GRULLON [address] [address] Telephone [place] [phone] Dear JAYDA GRULLON, Jayda was seen by me in clinic today for bronchitis and sinusitis. Sincerely, GERI HOLT [address] [place] [address] Electronic Signature Electronically Signed By: GERI HOLT MD On: 04 February 2014 This document has images extracted. Source: [facility] [employer] Document Id: [id number] Electronically signed by Conversion, [facility] Development Technologist [id number] at 09/19/2016 2:05 AM CDT Miscellaneous - Conversion, Historical Provider Ser - 02/04/2014 9:23 AM CDT Adult Category Specialist Intake/History Document Has Been Updated Adult Category Specialist Intake/History Entered On: 02/04/2014 9:26 CDT Performed [...] Information Given By : Patient Languages : Slovak Is Patient Female and 13-50 no hysterectomy : No ARIES ALCALA CMA - 02/04/2014 9:23 CDT Subjective Pain Symptoms : Yes ARIES ALCALA [facility] 02/04/2014 9:23 CDT Pain Pain Assessment Grid Pain 1 Location : Head Intensity : 8 ARIES ALCALA [facility] 02/04/2014 9:23 CDT Dependent Habits Tobacco Use/Currently Using : Yes Tobacco Use/Advised to Quit : Yes Exposure to Tobacco Smoke : Patient smokes Smoking Status : Current every day smoker ARIES ALCALA [facility] 02/04/2014 9:23 CDT Tobacco Use Grid Type : Cigarettes Cigarette Use Packs/Day : 0.5 ARIES ALCALA [facility] 02/04/2014 9:23 CDT Caffeine Use Grid Caffeine Use : Current Type : Soft drinks Frequency : Daily ARIES ALCALA [facility] 02/04/2014 9:23 CDT Recreational Drug Use Grid Drug Use : None ARIES ALCALA [facility] 02/04/2014 9:23 CDT [facility] Document Id: [id number] CDT!5 documented in this encounter Plan of Treatment Not on filedocumented as of this encounter Visit Diagnoses Not on filedocumented in this encounter
--- OUTSIDE RECORDS SUMMARY | 2022-02-16 09:58 | XMS_ITS | Encounter Summary ---
:1970 Author Organization [facility] Address [address] [place] [address] Care Team Providers Name Role Phone Unavailable Primary Care Provider Unavailable Encounter Details Date Type Department Care Team Description 07/12/2011 Hospital Encounter HX NO MAPPING Dudley Archer M.D. [address] [place], [place] [address] (Wo rk) Social History [...] Archer M.D. - 07/12/2011 12:00 PM CDT [id number] CLINIC ENCOUNTER Dr. Corley's office in [place], 07/12/2011 SUBJECTIVE: This is a 41-year-old female [...] eye. 3. The patient will present to [facility] for biometry, keratometry and preoperative teaching performed. The patient desires emmetropia with a monofocal lens. 4. She will see her primary MD in consultation regarding anesthetic risks. A letter to Dr. Croley. Saumya Linton/christiane cc: Source: [facility] [id number] Document Id: [id number] Miscellaneous - Heber Archer M.D. - 07/12/2011 12:00 PM CDT [id number] Candy Grullon is a 41 year old female who presents for cataract referral Dr. Corley. History of Present Illness: Patient states her vision has been gradually becoming more blurry, mostly left eye. Dickson Houser, COMT Distance Right Eye Left Eye Both Eyes CC 20 60 Pinhole Correction Glasses Current RX: Sphere Cylinder [place] Add Prism Right Eye -2.25 +1.25 115 [...] Psychiatric: negative Hematologic/Lymphatic/Immunologic: negative Endocrine: negative Source: [facility] [id number] Document Id: [id number] documented in this encounter Plan of Treatment Not on filedocumented as of this encounter Visit Diagnoses Not on filedocumented in this encounter
--- OUTSIDE RECORDS SUMMARY | 2022-02-16 09:58 | XMS_ITS | Encounter Summary ---
:1970 Author Organization [facility] Address [address] [place] [address] Care Team Providers Name Role Phone Unavailable Primary Care Provider Unavailable Encounter Details Date Type Department Care Team Description 02/22/2010 Hospital Encounter HX [facility] Neville To, INPT/OBSRV M.D. [address] [address] (Wo rk) Social History Tobacco Use Types Packs/Day Years Used Date Smoking Tobacco: Never Assessed Sex Assigned at Date Recorded Not on file documented as of this encounter Plan of Treatment Not on filedocumented as of this encounter Visit Diagnoses Not on filedocumented in this encounter
--- OUTSIDE RECORDS SUMMARY | 2022-02-16 09:58 | XMS_ITS | Encounter Summary ---
:1970 Author Organization [facility] Address [address] [place] [address] Care Team Providers Name Role Phone Unavailable Primary Care Provider Unavailable Encounter Details Date Type Department Care Team Description 02/22/2010 Hospital Encounter [facility] INPT/OBSRV Juan Manuel Gaines, P.A.-C. Social History Tobacco Use Types Packs/Day Years Used Date Smoking Tobacco: Never Assessed Sex Assigned at Date Recorded Not on file documented as of this encounter Plan of Treatment Not on filedocumented as of this encounter Visit Diagnoses Not on filedocumented in this encounter
--- OUTSIDE RECORDS SUMMARY | 2022-02-16 09:58 | XMS_ITS | Encounter Summary ---
:1970 Author Organization [facility] Address [address] [place] [address] Care Team Providers Name Role Phone Unavailable Primary Care Provider Unavailable Encounter Details Date Type Department Care Team Description 05/16/2011 Hospital Encounter HX [facility] ED Misael Mann M.D. Social History Tobacco Use Types Packs/Day Years Used Date Smoking Tobacco: Never Assessed Sex Assigned at Date Recorded Not on file documented as of this encounter Last Filed Vital Signs Vital Sign Reading Time Taken Comments Blood Pressure 131/91 05/16/2011 9:39 PM SUPERVISORY GEOGRAPHER Pulse - - Temperature - - Respiratory Rate 18 05/16/2011 9:39 PM SUPERVISORY GEOGRAPHER Oxygen Saturation - - Inhaled Oxygen Concentration - - Weight - - Height - - Body Mass Index - - documented in this encounter Discharge Summaries Cristy Draper R.N. - 05/16/2011 9:52 PM CST ED Discharge Instructions [address] [address] Name: CANDY VALDEZ Date of : 1970 12:00 AM Visit Date: 05/16/2011 8:07 PM Address: [address] [place] [address] Primary Care Provider: CORTEZ WAITE MD IMPORTANT:[facility] in [place] would like to thank you for allowing us to assist you with your healthcare needs. The following includes patient education materials and information regarding your injury/illness. Chief Complaint: Chest Pain:Pressure/Tightness; Chest Pain Follow-Up Instructions: With: Address: When: CORTEZ WAITE [facility] [place] [address] Business (1) Within 1 - 2weeks Comments: With: Address: When: Return to Emergency Department Within As Needed Comments: If symptoms worsen Patient Education Materials: [id number] CHEST PAIN:UNCERTAIN CAUSE Based on your exam [...] pain or redness in one leg ?? [id number] [employer] [facility], [address] [place] [address], [place] [address]. All rights reserved. This information is not intended as a substitute for professional medical care. Always follow your healthcare professional's instructions. [id number] HOW TO QUIT SMOKING Smoking is one [...] the free national Quitline for more information. 730-YUBZ-BDY (341-902-3499). Low-cost or free programs are offered by many hospitals,local chapters of the [place] [employer] (256-913-6376) and the [employer] (194-363-3098). Support at home is important too. Non-smokers can help by offering praise and encouragement. If the smoker fails to quit, encourage them to try again! LMAK-VIL-DQJMJSX MEDICINES: For those who can't quit on [...] visit the following links: ?? National Cancer [place] , Clearing the Air, Quit Smoking Today - an online booklet. http://www.smokefree.gov/pubs/clearing_the_air.pdf ?? Smokefree.gov http://smokefree.gov/ QuitNet http://www.quitnet.com/ ?? [employer] [facility], [address] [place] [address], [place] [address]. All rights reserved. This information is not [...] arrange a ride home with a responsible democrat. IJOSÉ MIGUEL THERESA MARIE , or responsible democrat have received this information and my questions [...] arrange a ride home with a responsible democrat. JOSÉ MIGUEL Barrios THERESA MARIE , or responsible democrat have received this information and my questions have been answered. I have discussed any challenges I see with this plan with the nurse or physician. Patient Signature or Responsible Constitution Party/Relationship Date/Time Provider Signature Date/Time This document has images extracted. Please consider using [employer] for all your patient education needs. Source: Beeline Document Id: [id number] RVISORY GEOGRAPHER Cristy Draper R.N. - 05/16/2011 9:52 PM CST ED Depart Summary [facility] Emergency Department Clinical Discharge Summary PERSON INFORMATION Name CANDY VALDEZ Age 40 Years 1970 12:00 AM Sex Female Language Tanzanian PCP CORTEZ WAITE MD Marital Status Single Visit Id Visit Reason Chest Pain:Pressure/Tightness; Chest Pain Specialty Enc Type Emergency Med Service Emergency Medicine Referred by Track Group [facility] ED Discharge 05/16/2011 9:52 PM Tracking Id [id number] Checkout 05/16/2011 9:52 PM Checkin 05/16/2011 8:07 PM Acuity 3 -Urgent Dispo Type * Discharged to Home or Self Care Arrival 05/16/2011 8:07 PM Reg Status Complete LOS 000 01:45 Address: [address] [place] [address] Comment: PROVIDER INFORMATION Provider Role Provider Contact Time CRISTY MEYER PIPELINE INSPECTOR Nurse 05/16/11 20:24 DIAGNOSIS Chest Pain, Atypical Comment: PATIENT EDUCATION INFORMATION Instructions: CHEST PAIN, Uncertain Cause; SMOKING CESSATION Follow up: With: Address: When: CORTEZ WAITE [address] [place] [address] [facility] (1) Within 1 - 2weeks Comments: With: Address: When: Return to Emergency Department Within As Needed Comments: If symptoms worsen [facility] Id: [id number] RVISORY GEOGRAPHER documented in this encounter Medications at Time of Discharge Medication Sig Dispensed Refills Start Date End Date IBUPROFEN ORAL Take by mouth as needed. 0 011 documented as of this encounter Nursing Notes Cristy Draper R.N. - 05/16/2011 9:33 PM CST ED Pain Assessment ED Pain Assessment Entered On: 05/16/2011 21:33 SUPERVISORY GEOGRAPHER Performed On: 05/16/2011 21:33 SUPERVISORY GEOGRAPHER by CRISTY MEYER RN Pain Assessment Pain Symptoms : Yes CRISTY MEYER RN - 05/16/2011 21:33 SUPERVISORY GEOGRAPHER Pain Pain Assessment Grid Pain 1 Location : Chest Laterality : Left Intensity : 0 CRISTY MEYER RN - 05/16/2011 21:33 SUPERVISORY GEOGRAPHER Source: [facility] [employer] Document Id: [id number] SUPERVISORY GEOGRAPHER!9 RVISORY GEOGRAPHER Cristy Draper R.N. - 05/16/2011 8:14 PM CST ED Primary Assessment ED Primary Assessment Entered On: 05/16/2011 20:22 SUPERVISORY GEOGRAPHER Performed On: 05/16/2011 20:14 SUPERVISORY GEOGRAPHER by CRISTY MEYER RN Reason For Visit Problems(Active) Reflux Name of Problem: Reflux ; Onset Date: 07/05/2005 ; Recorder: WADE DAIGLE LPN; Confirmation: Confirmed ; Classification: Nursing ; Code: 518011 ; Contributor System: DailyBooth ; Last Updated: 10/06/2010 8:35 CDT ; [...] Private vehicle Track : Medical Languages : Tanzanian Vital Signs Assessed : Yes Treatments Prior to Arrival : Other: ADVIL 1830 CRISTY MEYER RN - 05/16/2011 20:14 SUPERVISORY GEOGRAPHER Vital Signs Temperature Core : 36.8C(Converted to: [...] 190.08lb CRISTY MEYER RN - 05/16/2011 20:14 SUPERVISORY GEOGRAPHER Pain Assessment Pain Symptoms : Yes CRISTY MEYER RN - 05/16/2011 20:14 SUPERVISORY GEOGRAPHER Pain Pain Assessment Grid Pain 1 Location : Chest Laterality : Left Intensity : 3 Time Pattern : Acute Onset : Sudden Quality : Aching, Other: irritating Pain Radiation : Yes (Comment: back [CRISTY MEYER RN - 05/16/2011 20:14 SUPERVISORY GEOGRAPHER] ) Aggravating Factors : None Alleviating Factors : Rest Associated Symptoms : Nausea, Sweating Interventions : MD notified, Rest CRISTY MEYER RN - 05/16/2011 20:14 SUPERVISORY GEOGRAPHER ED Physician Notification Time ED Physician Notification Time : 05/16/2011 20:19 SUPERVISORY GEOGRAPHER CRISTY MEYER RN - 05/16/2011 20:14 SUPERVISORY GEOGRAPHER CARLA CARLA Level 1 : No CARLA Level 2 : No CARLA Level 3 : Many Vital Signs CARLA : Danger zone (HR > 100, RR > 20, SaO2 < 92%) CRISTY MEYER RN - 05/16/2011 20:14 SUPERVISORY GEOGRAPHER DCP GENERIC CODE Tracking Acuity : 3 -Urgent Tracking Group : [facility] CRISTY MEYER RN - 05/16/2011 20:14 SUPERVISORY GEOGRAPHER Allergy Latex Reaction : No Latex Hives/Itch : No Latex Congestion/Eye Irr/Breathing : No Latex Symptom Progression : No Latex Previous Test : No CRISTY MEYER RN - 05/16/2011 20:14 SUPERVISORY GEOGRAPHER Allergies (Active) Demerol HCl Estimated Onset Date: Unspecified ; Created By: WADE DAIGLE LPN; Reaction Status: Active ; Category: Drug ; Substance: Demerol HCl ; Type: Allergy ; Updated By: WADE DAIGLE LPN;Reviewed Date: 05/16/2011 20:20 SUPERVISORY GEOGRAPHER ID Screen Drug Resistant Organism : No CRISTY MEYER RN - 05/16/2011 20:14 SUPERVISORY GEOGRAPHER Immunizations Immunizations Current : Yes Last Tetanus : > 5 years Pneumovac : None Influenza : None CRISTY MEYER RN - 05/16/2011 20:14 SUPERVISORY GEOGRAPHER Respiratory Airway : Patent Respirations : Unlabored Respiratory Pattern : Regular Oxygen Start Time : 05/16/2011 20:20 SUPERVISORY GEOGRAPHER Oxygen Therapy : Nasal Cannula Oxygen Flow Rate : 2L/min CRISTY MEYER RN - 05/16/2011 20:14 SUPERVISORY GEOGRAPHER Cardiovascular Heart Rhythm : Regular Skin Color : Normal for ethnicity Skin Description : Clammy Skin Temperature : Warm CRISTY MEYER RN - 05/16/2011 20:14 SUPERVISORY GEOGRAPHER Neurological Level of Consciousness : Alert Orientation : Oriented x 3 Characteristics of Speech : Appropriate for age Neuro Patient Stated Symptoms : None Gait : Steady Swallowing Difficulty/Aspiration Risk : None CRISTY MEYER RN - 05/16/2011 20:14 SUPERVISORY GEOGRAPHER ED Psychosocial Affect/Behavior : Calm, Cooperative, Appropriate Domestic Abuse Concerns : None Emotional Support Available : Yes CRISTY MEYER RN - 05/16/2011 20:14 SUPERVISORY GEOGRAPHER Gastrointestinal Nutrition ED : Adequate CRISTY MEYER RN - 05/16/2011 20:14 SUPERVISORY GEOGRAPHER /OB Assessment Patient Stated Symptoms : None CRISTY MEYER RN - 05/16/2011 20:14 SUPERVISORY GEOGRAPHER Integumentary Integumentary Patient Stated Symptoms : None Skin Turgor : Elastic Skin Integrity : Intact Mucous Membrane Color : [place] Mucous Membrane Description : Moist Skin Color : Normal for ethnicity Skin Description : Dry Skin Temperature : Warm CRISTY MEYER RN - 05/16/2011 20:14 SUPERVISORY GEOGRAPHER Musculoskeletal Fall Prevention Education Provided : CRISTY MERAZ RN - 05/16/2011 20:14 SUPERVISORY GEOGRAPHER Social Habits Tobacco Use/Currently Using : Yes Smoking Status : Current every day smoker CRISTY MEYER RN - 05/16/2011 20:14 SUPERVISORY GEOGRAPHER Tobacco Use Grid Type : Cigarettes Cigarette Use Packs/Day : 0.5 CRISTY MEYER RN - 05/16/2011 20:14 SUPERVISORY GEOGRAPHER Alcohol Use Grid Alcohol Use : Yes Frequency : Occasionally CRISTY MEYER RN - 05/16/2011 20:14 SUPERVISORY GEOGRAPHER Recreational Drug Use Grid Drug Use : None CRISTY MEYER RN - 05/16/2011 20:14 SUPERVISORY GEOGRAPHER Source: [facility] Document Id: [id number] SUPERVISORY GEOGRAPHER!114 RVISORY GEOGRAPHER documented in this encounter ED Notes Cristy Draper R.N. - 05/16/2011 9:38 PM CST ED Disposition Summary ED Disposition Summary Entered On: 05/16/2011 21:38 SUPERVISORY GEOGRAPHER Performed On: 05/16/2011 21:38 SUPERVISORY GEOGRAPHER by CRISTY MEYER RN ED Disposition Summary Accompanied By : Alone Mode of Discharge : Ambulatory Transportation : Private vehicle Printed Discharge Instructions Given to Patient : Yes Patient Status at Discharge from ED : Improved CRISTY MEYER RN - 05/16/2011 21:38 SUPERVISORY GEOGRAPHER Source: [employer] Document Id: [id number] SUPERVISORY GEOGRAPHER!7 RVISORY GEOGRAPHER Cristy Draper R.N. - 05/16/2011 9:36 PM CST ED Nurse Reassess ED Nurse Reassess Entered On: 05/16/2011 21:37 SUPERVISORY GEOGRAPHER Performed On: 05/16/2011 21:36 SUPERVISORY GEOGRAPHER by CRISTY MEYER RN Pain Assessment Pain Symptoms : Yes CRISTY MEYER RN - 05/16/2011 21:36 SUPERVISORY GEOGRAPHER Pain Pain Assessment Grid Pain 1 Location : Chest Intensity : 9 CRISTY MEYER RN - 05/16/2011 21:36 SUPERVISORY GEOGRAPHER Resp Reassess Respiratory Patient Stated Symptoms : None Distress : None Airway : Patent Respirations : Unlabored Cough : None CRISTY MEYER RN - 05/16/2011 21:36 SUPERVISORY GEOGRAPHER CV Reassess CV Patient Stated Symptoms : None Skin Description : Dry Skin Temperature : Warm Nail Bed Color : [place] Capillary Refill : Less than 2 seconds Heart Rhythm : Regular Cardiac Rhythm : Sinus rhythm CRISTY MEYER RN - 05/16/2011 21:36 SUPERVISORY GEOGRAPHER Neuro Reassess Neuro Patient Stated Symptoms : None Level of Consciousness : Alert Orientation : Oriented x 3 Characteristics of Speech : Appropriate for age Gait : Steady CRISTY MEYER RN - 05/16/2011 21:36 SUPERVISORY GEOGRAPHER Elmo Coma Eye Opening Response [place] : Spontaneously Best Verbal Response [place]mo : Oriented Best Motor Response [place] : Obeys simple commands Elmo Coma Score : 15 CRISTY MEYER RN - 05/16/2011 21:36 SUPERVISORY GEOGRAPHER Behavioral Health Screen/Safety Reassmt Affect/Behavior : Calm, Cooperative, Appropriate CRISTY MEYER RN - 05/16/2011 21:36 SUPERVISORY GEOGRAPHER GI Reassess GI Patient Stated Symptoms : None CRISTY MEYER RN - 05/16/2011 21:36 SUPERVISORY GEOGRAPHER /OB Reassess Patient Stated Symptoms : None CRISTY MEYER RN - 05/16/2011 21:36 SUPERVISORY GEOGRAPHER Source: [facility] [employer] Document Id: [id number] SUPERVISORY GEOGRAPHER!39 RVISORY GEOGRAPHER Cristy Draper R.N. - 05/16/2011 9:29 PM CST ED Treatments and Procedures ED Treatments and Procedures Entered On: 05/16/2011 21:30 SUPERVISORY GEOGRAPHER Performed On: 05/16/2011 21:29 SUPERVISORY GEOGRAPHER by CRISTY MEYER RN Oxygen Therapy Oxygen Start Time : 05/16/2011 20:20 SUPERVISORY GEOGRAPHER Oxygen Therapy : Nasal Cannula Oxygen Stop Time : 05/16/2011 21:30 SUPERVISORY GEOGRAPHER Oxygen Flow Rate : 2L/min CRISTY MEYER RN - 05/16/2011 21:29 SUPERVISORY GEOGRAPHER Source: [facility] POWERCHART Document Id: [id number] SUPERVISORY GEOGRAPHER!6 RVISORY GEOGRAPHER Misael Mann M.D. - 05/16/2011 8:24 PM CST chest pain Patient: CANDY VALDEZ Age: 40 years Sex: Female : 1970 Author: MISAEL MANN MD Attachments: None Associated Diagnosis: Chest Pain, Atypical Basic Information Additional information:: Chief Complaint from Nursing Triage Note : Chief Complaint Description. 05/16/2011 20:14 SUPERVISORY GEOGRAPHER Chief Complaint Description 40 year old female [...] recorded. Surgical history: Surgical history. Breast lumpectomy ([id number]) in 2005 at 35 Years. Comments: 10/06/2010 09:50 - ASLESON, SUSAN Avila LPN right breast Hysterectomy and bilateral salpingo-oophorectomy sample ([id number]) in 1994 at 24 Years. Family history: Family history. No family history items have been selected or recorded. Social history: Tobacco use: Smokes 2 pack(s) per day, for the last 4 years, Occupation: Employed, Family/social situation: . Problem list: . All Problems History of - anxiety state / [id number] / Confirmed Reflux / [id number] / Confirmed Physical Examination Vital signs: Vital Signs, 05/16/2011 20:14 SUPERVISORY GEOGRAPHER Temperature Core 36.8 C Apical Heart Rate 95 /min Respiratory Rate 24 /min HI SpO2 96 % Systolic Blood Pressure 155 mmHg HI Diastolic Blood Pressure 91 mmHg >HHI Mean Arterial Pressure 112 mmHg BP Location Left upper Measurements, 05/16/2011 20:14 SUPERVISORY GEOGRAPHER Estimated Weight 86.4 kg Weight Source Other: per patient Oxygen saturation Oxygen Therapy & Oxygenation Information. 05/16/2011 20:14 SUPERVISORY GEOGRAPHER Oxygen Therapy Room air Oxygen Therapy Nasal [...] Glucose Level (Order Processing): Stat, 05/16/2011 20:26 SUPERVISORY GEOGRAPHER, Once, Blood CK Total (Order Processing): Stat, 05/16/2011 20:26 SUPERVISORY GEOGRAPHER, Once, Blood CPK-mb (Order Processing): Stat, 05/16/2011 20:26 SUPERVISORY GEOGRAPHER, Once, Blood CBC (includes Auto Differential) (Order Processing): Stat, 05/16/2011 20:26 SUPERVISORY GEOGRAPHER, Once, Blood Basic Metabolic Panel (Order Processing): Stat, 05/16/2011 20:26 SUPERVISORY GEOGRAPHER, Once, Blood Troponin T (Order Processing): Stat, 05/16/2011 20:25 SUPERVISORY GEOGRAPHER, Once, Blood Patient Care: ED Chest Pain (Order Processing) Cardiac Monitoring (Order Processing): 05/16/2011 20:25 SUPERVISORY GEOGRAPHER, Once Pulse Oximetry-ED (Order Processing): 05/16/2011 20:25 SUPERVISORY GEOGRAPHER EKG (Rad) (Order Processing): 05/16/2011 20:25 SUPERVISORY GEOGRAPHER, Once Pharmacy: aspirin (Order Processing): 324 mg, PO, Once Radiology: XR Chest 2 Views (Order Processing): 05/16/2011 20:25 SUPERVISORY GEOGRAPHER, Chest pain, Stat, Patient Bed, Once ED: Oxygen - ER (Order Processing): 05/16/2011 20:25 SUPERVISORY GEOGRAPHER, Once, Stat, PRN to keep oxygen saturation above 95%., 24 Electrocardiogram:Time 05/16/2011 20:31:00, rate 85, normal sinus rhythm, No ST- T changes, no ectopy, normal VT & QRS intervals. Impression and Plan Chest [...] symptoms, or other concerns.. Electronically Signed By: MSIAEL MANN MD On: 05/16/2011 09:41 PM Modified by and Electronically Signed by: MISAEL MANN MD On: 05/16/2011 09:41 PM Source: [facility] ulikeCHART Document Id: [id number]} RVISORY GEOGRAPHER Cristy Draper R.N. - 05/16/2011 8:10 PM CST ED Treatments and Procedures ED Treatments and Procedures Entered On: 05/16/2011 20:24 SUPERVISORY GEOGRAPHER Performed On: 05/16/2011 20:10 SUPERVISORY GEOGRAPHER by CRISTY MEYER RN Cardiac Monitoring Monitoring Lead : II Monitoring Lead Boat Hoist Operator Helper : Initiated CRISTY MEYER RN - 05/16/2011 20:24 SUPERVISORY GEOGRAPHER Source: [facility] [employer] Document Id: [id number] SUPERVISORY GEOGRAPHER!4 RVISORY GEOGRAPHER documented in this encounter Miscellaneous Notes Miscellaneous - Cristy Draper R.N. - 05/16/2011 9:39 PM CST Discharge Vital Signs Form Discharge Vital Signs Form Entered On: 05/16/2011 21:40 SUPERVISORY GEOGRAPHER Performed On: 05/16/2011 21:39 SUPERVISORY GEOGRAPHER by CRISTY MEYER RN Vital Signs Temperature Core : 37.2C(Converted to: 99.0DegF) Apical Heart Rate : 82/min Respiratory Rate : 18/min Systolic Blood Pressure : 131mmHg Diastolic Blood Pressure : 91mmHg (>HHI) NIBP Mean : 104mmHg BP Location : Left upper extremity SpO2 : 96% Oxygen Therapy : Room air CRISTY MEYER RN - 05/16/2011 21:39 SUPERVISORY GEOGRAPHER Source: [facility] [employer] Document Id: [id number] SUPERVISORY GEOGRAPHER!11 RVISORY GEOGRAPHER Cristy Walsh R.N. - 05/16/2011 9:38 PM CST Valuables/Belongings Valuables/Belongings Entered On: 05/16/2011 21:39 SUPERVISORY GEOGRAPHER Performed On: 05/16/2011 21:38 SUPERVISORY GEOGRAPHER by CRISTY MEYER RN Valuables/Belongings Valuables/Belongings Grid Valuables with Patient Clothes, Patient Valuables : Jacket, Pants, Shirt, Shoes Jewelry : Necklace, Wedding band CRISTY MEYER RN - 05/16/2011 21:38 SUPERVISORY GEOGRAPHER Home Medication Disposition : None brought in with patient CRISTY MEYER RN - 05/16/2011 21:38 SUPERVISORY GEOGRAPHER Source: [facility] POWERCHART Document Id: [id number] SUPERVISORY GEOGRAPHER!7 RVISORY GEOGRAPHER Martin - Cristy Draper R.N. - 05/16/2011 8:07 PM CST Facility Charge Ticket Facility Charge Ticket Entered On: 05/16/2011 21:38 SUPERVISORY GEOGRAPHER Performed On: 05/16/2011 20:07 SUPERVISORY GEOGRAPHER by CRISTY MEYER RN Facility Charge TVL Level for Facility Charge Ticket : Level 4 Lynx Total Points with Diagnosis Control : 11 Lynx Visit Level : 61903 Level 4 GUERDA BURGESS - 05/23/2011 9:40 SUPERVISORY GEOGRAPHER Mode of Arrival ED : Private vehicle [...] 1830 CRISTY MEYER RN - 05/16/2011 21:38 SUPERVISORY GEOGRAPHER Chief Complaint 8.50.02 Reason For Visit Category : Cardiorespiratory ED Chief Complaint Cardiorespiratory 8.5 : Chest pain TVL Calc : 20 TVL for Facility Charge Ticket Dx : Level 5 CRISTY MEYER RN - 05/16/2011 21:38 SUPERVISORY GEOGRAPHER Source: [facility] POWERCHART Document Id: [id number] SUPERVISORY GEOGRAPHER!5 RVISORY GEOGRAPHER documented in this encounter Plan of Treatment Not on filedocumented as of this encounter Procedures Procedure Name Priority Date/Time Associated Diagnosis Comme nts CREATINE KINASE Routine 05/16/2011 8:41 PM Result s for this (CK) MB ISOENZYME, SUPERVISORY GEOGRAPHER procedure are in S the results section. AUTOMATED Routine 05/16/2011 8:41 PM Results f or this DIFFERENTIAL, B SUPERVISORY GEOGRAPHER procedure ar e in the results section. CBC WITH Routine 05/16/2011 8:41 PM Results f or this DIFFERENTIAL, B SUPERVISORY GEOGRAPHER procedure ar e in the results section. TROPONIN T, 5TH Routine 05/16/2011 8:41 PM Result s for this GEN, P SUPERVISORY GEOGRAPHER procedure are i n the results section. CREATINE KINASE Routine 05/16/2011 8:41 PM Result s for this (CK), S SUPERVISORY GEOGRAPHER procedure are i n the results section. BASIC METABOLIC Routine 05/16/2011 8:41 PM Result s for this PANEL, S/P SUPERVISORY GEOGRAPHER procedure are i n the results section. documented in this encounter Results Automated Differential (05/16/2011 8:41 PM SUPERVISORY GEOGRAPHER) athologist Signature Neutro % 63.4 42.0 - POWERCHART 77.0 Lymphocytes % 27.1 23.0 - POWERCHART 44.0 HX Coleman % 7.5 2.0 - 11.0 POWERCHART HX [...] Blood 05/16/2011 8:41 PM 201 2 8:41 SUPERVISORY GEOGRAPHER PM SUPERVISORY GEOGRAPHER Misael Mann M.D. LAB BLOOD ADD-ON Performing Organization Address City/State/ZIP Code Phon e Number POWERCHART (ABNORMAL) CBC with Differential (05/16/2011 8:41 PM SUPERVISORY GEOGRAPHER) [facility] gist Method Time Signature Leukocytes 10.1 4.8 [...] / Volume Laterality Blood 05/16/2011 8:41 PM SUPERVISORY GEOGRAPHER Misael Mann M.D. LAB BLOOD ADD-ON Performing Organization Address City/State/ZIP Code Phon e Number POWERCHART CK (Creatine Kinase) (05/16/2011 8:41 PM SUPERVISORY GEOGRAPHER) P athologist Signature Creatine Kinase 65 21 - 232 UL POWERCHART (CK), S Specimen (Source) Anatomical Collection Method Collection Time Re ceived Time Location / / Volume Laterality Blood 05/16/2011 8:41 PM SUPERVISORY GEOGRAPHER Misael Mann M.D. LAB BLOOD ADD-ON Performing Organization Address City/[facility]/ZIP Code Phon e Number POWERCHART Creatine Kinase (CK) MB Isoenzyme (05/16/2011 8:41 PM SUPERVISORY GEOGRAPHER) P athologist Signature Creatine 1.4 0.1 - 6.2 POWERCHART Kinase(CK) MB NGML Isoenzyme, S Specimen (Source) Anatomical Collection Method Collection Time Re ceived Time Location / / Volume Laterality Blood 05/16/2011 8:41 PM SUPERVISORY GEOGRAPHER Misael Mann M.D. LAB BLOOD ADD-ON Performing Organization Address City/State/ZIP Code Phon e Number POWERCHART (ABNORMAL) BMP (Basic Metabolic Panel) (05/16/2011 8:41 PM SUPERVISORY GEOGRAPHER) Patholo gist Method Time Signature Sodium, S [...] MMOLL HXeGFR (MDRD) >60 (H) <=61 POWERCHART [id number] Comment: A GFR of <60 mL/min is indicative of chr onic kidney disease. (MDRD calculation valid on patients 18 - 70 years.) eGFR Black/ >60 MLMIN PO WERCHART Glucose 94 70 - 139 MGDL POWERCHART Specimen (Source) Anatomical Collection Method Collection Time Re ceived Time Location / / Volume Laterality Blood 05/16/2011 8:41 PM SUPERVISORY GEOGRAPHER Misael Mann M.D. LAB BLOOD ADD-ON Performing Organization Address City/State/ZIP Code Phon e Number POWERCHART Troponin T (05/16/2011 8:41 PM SUPERVISORY GEOGRAPHER) P athologist Signature Troponin T, S <0.01 0.00 - 0.10 POWERCHART NGML Comment: Below measuring range Specimen (Source) Anatomical Collection Method Collection Time Re ceived Time Location / / Volume Laterality Blood 05/16/2011 8:41 PM SUPERVISORY GEOGRAPHER Misael Mann M.D. LAB BLOOD ADD-ON Performing Organization Address City/State/ZIP Code Phon e Number POWERCHART documented in this encounter Visit Diagnoses Not on filedocumented in this encounter
--- OUTSIDE RECORDS SUMMARY | 2022-02-16 09:58 | XMS_ITS | Encounter Summary ---
:1970 Author Organization [facility] Address [address] [place] [address] Care Team Providers Name Role Phone Unavailable Primary Care Provider Unavailable Encounter Details Date Type Department Care Team Description 03/10/2008 Hospital Encounter HX [facility] Neville Sarabia, INPT/OBSRV M.D. [address] [phone] (Wo rk) Social History Tobacco Use Types Packs/Day Years Used Date Smoking Tobacco: Never Assessed Sex Assigned at Date Recorded Not on file documented as of this encounter Plan of Treatment Not on filedocumented as of this encounter Visit Diagnoses Not on filedocumented in this encounter
--- OUTSIDE RECORDS SUMMARY | 2022-02-16 09:58 | XMS_ITS | Encounter Summary ---
:1970 Author Organization [facility] Address [address] [place] [address] Care Team Providers Name Role Phone Unavailable [...]
--- OUTSIDE RECORDS SUMMARY | 2022-02-16 09:58 | XMS_ITS | Encounter Summary ---
:1970 Author Organization [facility] Address [address] [place] [address] Care Team Providers Name Role Phone Unavailable Primary Care Provider Unavailable Encounter Details Date Type Department Care Team Description 07/26/2011 Hospital Encounter HX [facility] Willem Saeed, GILBERT, C.N.P., D. N.P. [address] [place] [address] (Wo rk) Social History Tobacco [...] APRN, C.N.P. - 07/26/2011 12:00 AM CDT [id number] CHIEF COMPLAINT/REASON FOR VISIT Preanesthetic physical. HISTORY OF PRESENT ILLNESS Preanesthetic physical. Candy is a pleasant 41-year-old female who is being seen today per the request of Dr. Moscoso for preanesthetic clearance for left cataract eye surgery to be performed on 08/09/2011 at the [facility] in [place]. She has been noting some blurry vision [...] to be performed by Dr. Moscoso in [place] on 08/09/11. No additional precautions or preoperative recommendations other than patient was advised for smoking cessation. Patient Education Ready to learn No apparent learning barriers were identified Learning preferences include listening Explained diagnosis and treatment plan Patient/Child/Caregiver expressed understanding of the content Willem Saeed N.P. / Electronically Signed By: WILLEM SAEED RN, KEEGAN On: 07/29/2011 01:52 PM Source: [facility] MHSDOLBEYNONRADSYS Document Id: [id number] documented in this encounter Miscellaneous Notes Miscellaneous - Willem Saeed APRN, C.N.P. - 07/26/2011 12:50 PM CDT Ambulatory Patient Summary [address] [address] Visit Information Name: CANDY GRULLON Current Date: 07/26/2011 12:50:36 Physicians Attending Provider: WILLEM SAEED RN, PUBLIC ADMINISTRATION PROFESSOR Primary Care Provider: CORTEZ WAITE MD Your [...] No Appointments found Your Goals/Additional instructions: Source: [facility] [employer] Document Id: [id number] Miscellaneous - Willem Saeed APRN, C.N.P. - 07/26/2011 12:50 PM CDT Ambulatory Depart Summary [address] [address] Visit Information Name: CANDY GRULLON Visit Date: 07/26/2011 12:50:35 Attending Provider: WILLEM SAEED RN, PUBLIC ADMINISTRATION PROFESSOR Primary Care Provider: CORTEZ WAITE MD CANDY [...] your provider for clarification. Additional Information: Source: [facility] [employer]ART Document Id: [id number] Miscellaneous - Jasmin Douglas L.P.N. - 07/26/2011 [...] DOUGLAS LPN - 07/26/2011 10:37 CDT [facility] Document Id: [id number] CDT!9 Miscellaneous - Jasmin Douglas L.P.N. - [...] DOUGLAS LPN - 07/26/2011 10:33 CDT Source: [facility] POWERCHART Document Id: [id number] CDT!32 Miscellaneous - Jasmin Douglas L.P.N. 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
--- OUTSIDE RECORDS SUMMARY | 2022-02-16 09:58 | XMS_ITS | Encounter Summary ---
:1970 Author Organization [facility] Address [address] [place] [address] Care Team Providers Name Role Phone Unavailable Primary Care Provider Unavailable Encounter Details Date Type Department Care Team Description 08/09/2011 Hospital Encounter HX [facility] SURGERY Lance Alonzo M.D. [address] [place] [address] (Wo rk) Social History Tobacco [...] Performed On: 08/09/2011 7:28 CDT by ROSALINA JFEFRIES RN Checklist Last Fluid Intake : 08/08/2011 23:00 CDT Last Food Intake : 08/08/2011 21:00 CDT Last Void : 08/09/2011 7:00 CDT Status : Patient denies ROSALINA JEFFRIES RN - 08/09/2011 7:28 CDT Surgery Prep Grid Contacts/Glasses Removed : Yes Dentures Removed : NA Hairpins/Hairpiecies Removed : NA Hearing Aid Removed : NA Home Prep Complete : NA Jewelry/Piercing Removed : NA Makeup/Nail Yemeni Removed : NA Oral Hygiene : NA [...] JEFFRIES RN - 08/09/2011 7:28 CDT Source: H2020 Document Id: [id number] CDT!97 documented in this encounter Nursing Notes [...] Information Given By : Patient Languages : Angolan Status : Patient denies ROSALINA JEFFRIES RN [...] Adult : None Home Diet : Regular, Cavalier, Diabetic Feeding Ability : Complete independence Eating [...] Integrity : Intact Mucous Membrane Color : Quintana Mucous Membrane Description : Moist Skin Color : Normal for ethnicity Skin Description : Dry Skin Temperature : Warm ROSALINA JEFFRIES RN - 08/09/2011 7:20 CDT Source: [facility]2020 Document Id: [id number] CDT!135 documented in this encounter OR Notes Op Note - Katalina Alonzo M.D. - 08/09/2011 12:00 AM CDT [id number] Preoperative Diagnosis: Visually disabling posterior capsular cataract [...] ALONZO MD On: 09/06/2011 10:13 AM Source: [facility] MHSDOLBEYNONRADSYS Document Id: [id number] documented in this encounter Miscellaneous Notes Miscellaneous [...] Rhythm : Regular Nail Bed Color : Quintana Edema : None Capillary Refill : Less [...] Integrity : Intact Mucous Membrane Color : Quintana Mucous Membrane Description : Moist Skin Color [...] Bed Color Hands Grid Left Hand : Quintana Right Hand : Quintana ROSALINA JEFFRIES 08/09/2011 9:14 CDT Capillary Refill Hand Grid Left Hand : < 2 seconds Right Hand : < 2 seconds ROSALINA JEFFRIES 08/09/2011 9:14 CDT Upper Extremity Color Grid Left : Quintana Right : Quintana ROSALINA JEFFRIES 08/09/2011 9:14 CDT Upper Extremity [...] impairment Moisture Regino : Rarely moist Activity Region : Walks frequently Mobility Regino : No limitations Nutrition Regino : Excellent ROASLINA JEFFRIES RN - 08/09/2011 9:14 CDT Hendrich [...] Murray RN - 08/09/2011 9:14 CDT [facility] POWERCHART Document Id: [id number] CDT!128 Miscellaneous - Rosalina Jeffries R.N. - [...] Rhythm : Regular Nail Bed Color : Quintana Edema : None Capillary Refill : Less [...] Integrity : Intact Mucous Membrane Color : Quintana Mucous Membrane Description : Moist Skin Color [...] Bed Color Hands Grid Left Hand : Quintana Right Hand : Quintana ROSALINA JEFFRIES 08/09/2011 9:03 CDT Capillary Refill Hand Grid Left Hand : < 2 seconds Right Hand : < 2 seconds ILSA-KRISH COREANE Susan 08/09/2011 9:03 CDT Upper Extremity Color Grid Left : Quintana Right : Quintana ROSALINA JEFFRIES 08/09/2011 9:03 CDT Upper Extremity [...] JEFFRIES RN - 08/09/2011 9:03 CDT Source: H2020 Document Id: [id number] CDT!118 documented in this encounter Plan of Treatment Not on filedocumented as of this encounter Visit Diagnoses Not on filedocumented in this encounter
--- OUTSIDE RECORDS SUMMARY | 2022-02-16 09:58 | XMS_ITS | Encounter Summary ---
:1970 Author Organization [facility] Address [address] [place] [address] Care Team Providers Name Role Phone Unavailable Primary Care Provider Unavailable Encounter Details Date Type Department Care Team Description 05/31/2011 Hospital Encounter HX [facility] Denise Johnson P.A.-C. [address] [place] [address] (Wo rk) Social History Tobacco Use Types Packs/Day Years Used Date Smoking Tobacco: Never Assessed Sex Assigned at Date Recorded Not on file documented as of this encounter Last Filed Vital Signs Vital Sign Reading Time Taken Comments Blood Pressure 120/70 05/31/2011 8:25 AM SENIOR SALES CONSULTANT Pulse - - Temperature - - Respiratory Rate 20 05/31/2011 8:25 AM SENIOR SALES CONSULTANT Oxygen Saturation - - Inhaled Oxygen Concentration - - Weight - - Height - - Body Mass Index - - documented in this encounter Medications at Time of Discharge Medication Sig Dispensed Refills Start Date End Date IBUPROFEN ORAL Take by mouth as needed. 0 011 documented as of this encounter Progress Notes Chandni Johnson - 05/31/2011 12:00 AM CST [id number] CHIEF COMPLAINT/REASON FOR VISIT This is a [...] ago. She has been using some NyQuil feko-uzm-egrgmev and Ibuprofen. CURRENT MEDICATIONS Just Advil evsg-frj-hphwips. ALLERGIES 1) DEMEROL. PAST MEDICAL HISTORY/SURGICAL HISTORY [...] CHANDNI JOHNSON On: 06/06/2011 09:49 AM Source: [facility] MHSDOLBEYNONRADSYS Document Id: [id number] OR SALES CONSULTANT documented in this encounter Miscellaneous Notes Miscellaneous - Chandni Johnson - 05/31/2011 9:21 AM CST Ambulatory Patient Summary [address] [address] Visit Information Name: CANDY VALDEZ Current Date: [...] No Appointments found Your Goals/Additional instructions: Source: [facility] POWERCHART Document Id: [id number] OR SALES CONSULTANT Martin - Chandni Johnson - 05/31/2011 9:21 AM CST Ambulatory Depart Summary [address] [address] Visit Information Name: CANDY VALDEZ Current Date: [...] (Advil) Oral as needed Additional Information: Source: [facility] POWERCHART Document Id: [id number] OR SALES CONSULTANT Martin - Chandni Johnson - 05/31/2011 8:49 AM CST School or Work Excuse School or Work Excuse Entered On: 05/31/2011 8:49 SENIOR SALES CONSULTANT Performed On: 05/31/2011 8:49 SENIOR SALES CONSULTANT by CHANDNI JOHNSON School or Work Excuse Date Patient Seen : 05/31/2011 SENIOR SALES CONSULTANT Comment : Candy was seen in the clinic today. CHANDNI JOHNSON - 05/31/2011 8:49 SENIOR SALES CONSULTANT Source: [facility] [employer] Document Id: [id number] SENIOR SALES CONSULTANT!4 OR SALES CONSULTANT Miscellaneous - Conversion, Historical Provider Ser - 05/31/2011 8:29 AM SENIOR SALES CONSULTANT Health Assessment Health Assessment Entered On: 05/31/2011 8:30 SENIOR SALES CONSULTANT Performed On: 05/31/2011 8:29 SENIOR SALES CONSULTANT by YURI STEWART LPN Health Assessment Complete Health Assessment Complete or Modified : Annual Health Assessment Annual Health Assessment Completed : Yes YURI STEWART LPN - 05/31/2011 8:29 SENIOR SALES CONSULTANT Nutrition Nutrition Risk Factors by History Adult : None YURI STEWART LPN - 05/31/2011 8:29 SENIOR SALES CONSULTANT Functional Current Daily Living Assistance : None YURI STEWART LPN - 05/31/2011 8:29 SENIOR SALES CONSULTANT Dependent Habits Tobacco Use/Currently Using : Yes Smoking Status : Current every day smoker YURI STEWART LPN - 05/31/2011 8:29 SENIOR SALES CONSULTANT Tobacco Use Grid Type : Cigarettes Cigarette Use Packs/Day : 0.5 YURI STEWART LPN - 05/31/2011 8:29 SENIOR SALES CONSULTANT Caffeine Use Grid Caffeine Use : Current Type : Soft drinks Frequency : Daily YURI STEWART LPN - 05/31/2011 8:29 SENIOR SALES CONSULTANT Recreational Drug Use Grid Drug Use : None YURI STEWART LPN - 05/31/2011 8:29 SENIOR SALES CONSULTANT Psychosocial Domestic Abuse Concerns : None YURI STEWART LPN - 05/31/2011 8:29 SENIOR SALES CONSULTANT Advance Directive Advanced Directives : Yes YURI STEWART LPN - 05/31/2011 8:29 SENIOR SALES CONSULTANT Educ Needs Learning Style Preference Adult Grid Patient : Printed materials Family : Printed materials YURI STEWART LPN - 05/31/2011 8:29 SENIOR SALES CONSULTANT Source: [facility] [employer] Document Id: [id number] SENIOR SALES CONSULTANT!31 Miscellaneous - Conversion, Historical Provider Ser - 05/31/2011 8:25 AM SENIOR SALES CONSULTANT 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 Intake/History 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 Intake/History Entered On: 05/31/2011 8:28 SENIOR SALES CONSULTANT Performed On: 05/31/2011 8:25 SENIOR SALES CONSULTANT by YURI STEWART LPN Intake Chief Complaint : cols sx xince Fri, cough that is productive, sinus congestion, runny nose, drainage refused weight Temperature Core : 36.6C(Converted to: 97.9DegF) Apical Heart Rate : 80/min Respiratory Rate : 20/min Systolic Blood Pressure : 120mmHg Diastolic Blood Pressure : 70mmHg NIBP Mean : 87mmHg SpO2 : 98% YURI STEWART LPN - 05/31/2011 8:25 SENIOR SALES CONSULTANT Subjective Pain Symptoms : No YURI STEWART LPN - 05/31/2011 8:25 SENIOR SALES CONSULTANT Dependent Habits Tobacco Use/Currently Using : Yes Smoking Status : Current every day smoker YURI STEWART LPN - 05/31/2011 8:25 SENIOR SALES CONSULTANT Tobacco Use Grid Type : Cigarettes Cigarette Use Packs/Day : 0.5 YURI STEWART LPN - 05/31/2011 8:25 SENIOR SALES CONSULTANT Caffeine Use Grid Caffeine Use : Current Type : Soft drinks Frequency : Daily YURI STEWART LPN - 05/31/2011 8:25 SENIOR SALES CONSULTANT Recreational Drug Use Grid Drug Use : None YURI STEWART LPN - 05/31/2011 8:25 SENIOR SALES CONSULTANT Allergy Allergies (Active) Demerol HCl Estimated Onset Date: Unspecified ; Created By: WADE DAIGLE LPN; Reaction Status: Active ; Category: Drug ; Substance: Demerol HCl ; Type: Allergy ; Updated By: WADE DAIGLE LPN;Reviewed Date: 05/16/2011 20:24 SENIOR SALES CONSULTANT Source: [facility] POWERCHART Document Id: [id number] SENIOR SALES CONSULTANT!27 documented in this encounter Plan of Treatment Not on filedocumented as of this encounter Visit Diagnoses Not on filedocumented in this encounter
--- OUTSIDE RECORDS SUMMARY | 2022-02-16 09:58 | XMS_ITS | Encounter Summary ---
:1970 Author Organization [facility] Address [address] [place] [address] Care Team Providers Name Role Phone Unavailable [...]
--- OUTSIDE RECORDS SUMMARY | 2022-02-16 09:58 | XMS_ITS | Encounter Summary ---
:1970 Author Organization [facility] Address [address] [place] [address] Care Team Providers Name Role Phone Unavailable Primary Care Provider Unavailable Encounter Details Date Type Department Care Team Description 10/06/2010 Hospital Encounter HX [facility] Jabari Benton M.D. [address] [phone] (Wo rk) Social History Tobacco [...] Benton M.D. - 10/06/2010 12:00 AM CDT [id number] IMPRESSION/REPORT/PLAN Bacterial sinusitis and bronchitis. 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
--- OUTSIDE RECORDS SUMMARY | 2022-02-16 09:58 | XMS_ITS | Encounter Summary ---
:1970 Author Organization [facility] Address [address] [place] [address] Care Team Providers Name Role Phone Unavailable Primary Care Provider Unavailable Encounter Details Date Type Department Care Team Description 07/05/2009 Hospital Encounter HX NO MAPPING Brie Smith M.D. [address] [place] [phone] (Wo rk) Social History Tobacco Use Types Packs/Day Years Used Date Smoking Tobacco: Never Assessed Sex Assigned at Date Recorded Not on file documented as of this encounter Plan of Treatment Not on filedocumented as of this encounter Visit Diagnoses Not on filedocumented in this encounter
--- OUTSIDE RECORDS SUMMARY | 2022-02-16 09:58 | XMS_ITS | Encounter Summary ---
:1970 Author Organization [facility] Address [address] [place] [address] Care Team Providers Name Role Phone Unavailable [...]
--- OUTSIDE RECORDS SUMMARY | 2022-02-16 09:58 | XMS_ITS | Encounter Summary ---
:1970 Author Organization [facility] Address [address] [place] [address] Care Team Providers Name Role Phone Unavailable [...]
--- OUTSIDE RECORDS SUMMARY | 2022-02-16 09:58 | XMS_ITS | Encounter Summary ---
:1970 Author Organization [facility] Address [address] [place] [address] Care Team Providers Name Role Phone Unavailable Primary Care Provider Unavailable Encounter Details Date Type Department Care Team Description 02/16/2008 Hospital Encounter HX [facility] INPT/OBSRV Dalton Starr M.D. [address] [place], [place] [address] (Wo rk) Social History Tobacco Use Types Packs/Day Years Used Date Smoking Tobacco: Never Assessed Sex Assigned at Date Recorded Not on file documented as of this encounter Plan of Treatment Not on filedocumented as of this encounter Visit Diagnoses Not on filedocumented in this encounter
--- OUTSIDE RECORDS SUMMARY | 2022-02-16 09:58 | XMS_ITS | Encounter Summary ---
:1970 Author Organization [facility] Address [address] [place] [address] Care Team Providers Name Role Phone Unavailable Primary Care Provider Unavailable Encounter Details Date Type Department Care Team Description 07/27/2011 Hospital Encounter [facility] Provider, Histor ical Social [...]
--- OUTSIDE RECORDS SUMMARY | 2022-02-16 09:58 | XMS_ITS | Encounter Summary ---
:1970 Author Organization [facility] Address [address] [place] [address] Care Team Providers Name Role Phone Unavailable Primary Care Provider Unavailable Encounter Details Date Type Department Care Team Description 02/21/2012 Hospital Encounter HX [facility] Lars Gaines, P.A.-C. Social History [...] Lars Gaines - 02/21/2012 3:20 PM CDT [id number] CLINIC ENCOUNTER SUBJECTIVE: Miss Hicks is a [...] half that time was spent in direct smos-ep-qjgd counseling and educating the patient about her condition as well as treatment options that are available to her. HOLLY Fraire/george cc: Source: [facility] Document Id: [id number] Electronically signed by Maryann, [facility] Electrician Substation Supervisor [id number] at 09/23/2016 9:11 PM CDT documented in [...] AM CDT) P athologist Signature HXSPECIMAN Serum [facility] Specimen (Source) Anatomical Collection Method Collection Time Re ceived Time Location / / Volume Laterality 02/23/2012 10:35 AM CDT Historical Provider LAB HISTORICAL ORDERS Performing Organization Address City/State/ZIP Code Phon e Number [facility] documented in this encounter Visit Diagnoses Not on filedocumented in this encounter
--- OUTSIDE RECORDS SUMMARY | 2022-02-16 09:58 | XMS_ITS | Encounter Summary ---
:1970 Author Organization [facility] Address [address] [place] [address] Care Team Providers Name Role Phone Unavailable Primary Care Provider Unavailable Encounter Details Date Type Department Care Team Description 02/07/2012 Hospital Encounter [facility] Jabari Benton M.D. [address] [place] [phone] (Wo rk) Social History Tobacco Use [...] Benton M.D. - 02/07/2012 8:53 AM CDT [id number] IMPRESSION/REPORT/PLAN Knee effusion with knee pain, etiology [...] BENTON MD On: 02/12/2012 12:48 PM Source: [facility] MHSDOLBEYNONRADSYS Document Id: [id number] documented in this encounter Miscellaneous Notes Miscellaneous - Jhon Benton M.D. - 02/08/2012 12:50 AM CDT Ambulatory Patient Summary [address] [address] Visit Information Name: CANDY CORADO Current Date: 02/08/2012 00:50:38 Physicians Attending Provider: JHON BENTON MD Primary Care Provider: WILLEM SAEED RN, ELECTRICAL MAINTENANCE SUPERVISOR Your Medications Here is a list of [...] No Appointments found Your Goals/Additional instructions: Source: [facility] POWERCHART Document Id: [id number] Miscellaneous - Jhon Benton M.D. - 02/08/2012 12:50 AM CDT Ambulatory Depart Summary [address] [address] Visit Information Name: CANDY CORADO Visit Date: 02/08/2012 00:50:38 Attending Provider: JHON BENTON MD Primary Care Provider: WILLEM SAEED RN, ELECTRICAL MAINTENANCE SUPERVISOR CANDY CORADO has been given the following [...] clarification. Additional Information: Yes - . Source[facility] [employer] Document Id: [id number] Martin - Jhon Benton M.D. - 02/07/2012 [...] BENTON MD - 02/07/2012 10:43 CDT Source: [facility] [employer] Document Id: [id number] Martin - Johnnie Sher, L.P.N. - 02/07/2012 8:59 AM CDT Adult Package Wrapper Intake/History Adult Package Wrapper Intake/History Entered On: 02/07/2012 9:05 CDT Performed On: 02/07/2012 8:59 CDT by JOHNNIE SHER BIAS MACHINE OPERATOR HELPER Intake Chief Complaint : Hurt left knee [...] DAIGLE LPN;Reviewed Date: 07/26/2011 10:34 CDT Source: [facility] ServicesCHART Document Id: [id number] documented in this encounter Plan of Treatment Not on filedocumented as of this encounter Visit Diagnoses Not on filedocumented in this encounter
--- OUTSIDE RECORDS SUMMARY | 2022-02-16 09:58 | XMS_ITS | Encounter Summary ---
:1970 Author Organization [facility] Address [address] [place] [address] Care Team Providers Name Role Phone Unavailable Primary Care Provider Unavailable Encounter Details Date Type Department Care Team Description 02/16/2008 Hospital Encounter [facility] INPT/OBSRV Dalton Starr M.D. [address] [place], [place] [address] (Wo rk) Social History Tobacco Use Types Packs/Day Years Used Date Smoking Tobacco: Never Assessed Sex Assigned at Date Recorded Not on file documented as of this encounter Plan of Treatment Not on filedocumented as of this encounter Visit Diagnoses Not on filedocumented in this encounter
--- OUTSIDE RECORDS SUMMARY | 2022-02-16 09:58 | XMS_ITS | Encounter Summary ---
:1970 Author Organization [facility] Address [address] [place] [address] Care Team Providers Name Role Phone Unavailable Primary Care Provider Unavailable Encounter Details Date Type Department Care Team Description 07/14/2011 Hospital Encounter HX [facility] Margarita Amos M.D. [address] [place], [place] [phone] (Wo rk) Social History [...] Provider Ser - 07/14/2011 12:00 AM CDT [id number] July 14, 2011 Jimi Corley O.D. [facility] [address] [facility] [address] RE: Candy Grullon [address] [place] [id number] EMR#: [id number] : 1970 Dear Jimi: Thanks for having me see Candy Grullon regarding a cataract. As you recall, she is a [id number] who has noticed a definite decline in [...] future. Surgery will be set up in [place] next month. She does desire a monofocal lens with emmetropia for the left eye. The patient and her family would appreciate if you could provide postoperative management. Thanks again for the consultation. Sincerely, Heber Archer M.D. Department of Ophthalmology Laurie/[facility] Source: [facility] [id number] Document Id: [id number] documented in this encounter Plan of Treatment Not on filedocumented as of this encounter Visit Diagnoses Not on filedocumented in this encounter
--- OUTSIDE RECORDS SUMMARY | 2022-02-16 09:58 | XMS_ITS | Encounter Summary ---
:1970 Author Organization [facility] Address [address] [place] [address] Care Team Providers Name Role Phone Unavailable [...]
--- OUTSIDE RECORDS SUMMARY | 2022-02-16 09:58 | XMS_ITS | Encounter Summary ---
:1970 Author Organization [facility] Address [address] [place] [address] Care Team Providers Name Role Phone Unavailable [...] Freitas, CCS-P - 08/15/2011 12:00 AM CDT [id number] [facility] [address] [facility] [address] [place] [address] [place] [address] Attn: Billing Office: Our [place] patient, Candy Grullon, had surgery with Dr. Sloan Archer MD. In an effort to coordinate the billing for the post-operative care, our office is providing the following information: All post-op care will be provided by your physician. WE BILLED: CPT CODE(S): 40547-94-WX DATE OF SERVICE: 08/09/11 DIAGNOSIS: 366.14 POST OP CARE TURNED OVER: 08/10/11 If there are any questions or concerns, please call Ronda at [phone] in Health Information Management. Thank You Source: [facility] Document Id: [id number] documented in this encounter Plan of Treatment Not on filedocumented as of this encounter Visit Diagnoses Not on filedocumented in this encounter
--- OUTSIDE RECORDS SUMMARY | 2022-02-16 09:58 | XMS_ITS | Encounter Summary ---
:1970 Author Organization [facility] Address [address] [place] [address] Care Team Providers Name Role Phone Unavailable [...]
--- OUTSIDE RECORDS SUMMARY | 2022-02-16 09:59 | XMS_ITS | Encounter Summary ---
:1970 Author Organization [facility] Address [address] [place] [address] Care Team Providers Name Role Phone Unavailable Primary Care Provider Unavailable Encounter Details Date Type Department Care Team Description 02/03/2008 Hospital Encounter HX [facility] Neville Sarabia, INPT/OBSRV M.D. [address] [phone] (Wo rk) Social History Tobacco Use Types Packs/Day Years Used Date Smoking Tobacco: Never Assessed Sex Assigned at Date Recorded Not on file documented as of this encounter Plan of Treatment Not on filedocumented as of this encounter Visit Diagnoses Not on filedocumented in this encounter
--- OUTSIDE RECORDS SUMMARY | 2022-02-16 09:59 | XMS_ITS | Encounter Summary ---
:1970 Author Organization [facility] Address [address] [place] [address] Care Team Providers Name Role Phone Unavailable Primary Care Provider Unavailable Encounter Details Date Type Department Care Team Description 11/21/2006 Hospital Encounter HX [facility]HW Provider, Historic al Social History Tobacco Use Types Packs/Day Years Used Date Smoking Tobacco: Never Assessed Sex Assigned at Date Recorded Not on file documented as of this encounter Plan of Treatment Not on filedocumented as of this encounter Visit Diagnoses Not on filedocumented in this encounter
--- OUTSIDE RECORDS SUMMARY | 2022-02-16 09:59 | XMS_ITS | Encounter Summary ---
:1970 Author Organization [facility] Address [address] [place] [address] Care Team Providers Name Role Phone Unavailable [...]
--- OUTSIDE RECORDS SUMMARY | 2022-02-16 09:59 | XMS_ITS | Encounter Summary ---
:1970 Author Organization [facility] Address [address] [place] [address] Care Team Providers Name Role Phone Unavailable Primary Care Provider Unavailable Encounter Details Date Type Department Care Team Description 09/02/2002 Hospital Encounter HX NO MAPPING Tony Polanco M.D. [address] [place], [place] [phone] (Wo rk) Social History Tobacco Use Types Packs/Day Years Used Date Smoking Tobacco: Never Assessed Sex Assigned at Date Recorded Not on file documented as of this encounter Plan of Treatment Not on filedocumented as of this encounter Visit Diagnoses Not on filedocumented in this encounter
--- OUTSIDE RECORDS SUMMARY | 2022-02-16 09:59 | XMS_ITS | Encounter Summary ---
:1970 Author Organization [facility] Address [address] [place] [address] Care Team Providers Name Role Phone Unavailable [...] Provider Ser - 09/03/2002 12:00 AM CDT [id number] Abstracted by [employer] on [address] [place] [id number] . H. Blee, M.D.Room No. [id number], THERESA : 68EMERGEN ROOM NOTECHIEF COMPLAI NT: [...] followup on a p.r.n. basis. Jhon Bourne M.D./[facility]: 09/03/02T: 09/03/02 Source: [facility] [id number] Document Id: [id number] documented in this encounter Plan of Treatment Not on filedocumented as of this encounter Visit Diagnoses Not on filedocumented in this encounter
--- OUTSIDE RECORDS SUMMARY | 2022-02-16 09:59 | XMS_ITS | Encounter Summary ---
:1970 Author Organization [facility] Address [address] [place] [address] Care Team Providers Name Role Phone Unavailable Primary Care Provider Unavailable Encounter Details Date Type Department Care Team Description 11/22/2007 Hospital Encounter HX [facility] EHW Provider, Historic al Social History Tobacco Use Types Packs/Day Years Used Date Smoking Tobacco: Never Assessed Sex Assigned at Date Recorded Not on file documented as of this encounter Plan of Treatment Not on filedocumented as of this encounter Visit Diagnoses Not on filedocumented in this encounter
--- OUTSIDE RECORDS SUMMARY | 2022-02-16 09:59 | XMS_ITS | Encounter Summary ---
:1970 Author Organization [facility] Address [address] [place] [address] Care Team Providers Name Role Phone Unavailable [...]
--- OUTSIDE RECORDS SUMMARY | 2022-02-16 10:01 | XMS_ITS | Encounter Summary ---
:1970 Author Organization [facility] Address [address] [place] [address] Care Team Providers Name Role Phone Silvana Velarde REINFORCING STEEL ERECTOR, SAND ANALYST Primary Care Provider [phone] Reason for Visit Reason Onset Date Comments APPT CANCEL 04/04/2018 Encounter Details Date Type Department Care Team Description 04/04/2018 Telephone [place] Silvana Velarde, APPT CANCEL [address] REINFORCING STEEL ERECTOR, SAND ANALYST [place], [place] [address] [address] [facility] [address] [phone] [place], [place] [address] Social History Tobacco Use Types Packs/Day Years Used Date Current Every Day Smoker Smokeless Tobacco: Never Used Alcohol Use Standard Drinks/Week Comments Yes 0 (1 standard drink = 0.6 oz pure alcoho l) Sex Assigned at Date Recorded Not on file documented as of this encounter Miscellaneous Notes Telephone Encounter - Shayy Perez MA - 04/04/2018 11:05 AM CST FYI M SECURITY OR SURVEILLANCE MONITOR Telephone Encounter - Kylee Anglin - 04/04/2018 10:59 AM CST The patient called to cancel her appt tomorrow with [facility] and wanted to let her know that she just found Aleve Back and Joint pain and it's really helped. She also has a rheumatology appt coming up yet in March at [facility]. She noticed enough improvement, that she didn't think she'd need towaste your time. M SECURITY OR SURVEILLANCE MONITOR documented in this encounter Plan of Treatment Not on filedocumented as of this encounter Visit Diagnoses Not on filedocumented in this encounter Care Teams Bar Tacker Relationship Specialty Start Date End Date Silvana Velarde APRN, SAND ANALYST PCP - General 11/27/17 12/29/19 [address] [facility] [place] [address] documented as of this encounter
--- OUTSIDE RECORDS SUMMARY | 2022-02-16 10:01 | XMS_ITS | Encounter Summary ---
:[address] [facility] Address [address] [place] [address] Care Team Providers Name Role Phone Silvana Velarde APRN, AGENCY LEGAL COUNSEL Primary Care Provider [phone] Encounter Details Date Type Department Care Team [...] on filedocumented in this encounter Care Teams Pilot Can Router Relationship Specialty Start Date End Date Silvana Velarde APRN, AGENCY LEGAL COUNSEL PCP - General 11/27/17 12/29/[address] [facility] [address] documented as of this encounter
--- OUTSIDE RECORDS SUMMARY | 2022-02-16 10:01 | XMS_ITS | Encounter Summary ---
:1970 Author Organization [facility] Address [address] [place] [address] Care Team Providers Name Role Phone None, Pcp Primary Care Provider Unavailable Encounter Details Date Type Department Care Team Description 08/13/2020 Immunization Family Medicine [address] [place] [address] Social History Tobacco Use Types Packs/Day Years [...] on filedocumented in this encounter Care Teams Physics Department Chair Relationship Specialty Start Date End Date None, Pcp PCP - General Program Technician 03/30/20 12/19/20 [address] [place] [address] documented as of this encounter
--- OUTSIDE RECORDS SUMMARY | 2022-02-16 10:01 | XMS_ITS | Encounter Summary ---
:1970 Author Organization [facility] Address [address] [place] [address] Care Team Providers Name Role Phone Silvana Velarde APRN, CNP Primary Care Provider [phone] Reason for Visit Reason Comments Generalized Body Aches Encounter Details Date Type Department Care Team Description 03/05/2018 Office Visit [place] Polyarticular arthritis (Adamaris robina Dx); [address] M, KEEGAN HUNT Paresthesia of both hands [place]NA Kiser [address] [address] [address] [place] [address] Social History Tobacco Use Types Packs/Day Years Used Date Current Every Day Smoker Smokeless Tobacco: Never Used Alcohol Use Standard Drinks/Week Comments Yes 0 (1 standard drink = 0.6 oz pure alcoho l) Sex Assigned at Date Recorded Not on file documented as of this encounter Last Filed Vital Signs Vital Sign Reading Time Taken Comments Blood Pressure 124/80 03/05/2018 8:03 AM EROSION CONTROL SPECIALIST Pulse 84 03/05/2018 8:03 AM EROSION CONTROL SPECIALIST Temperature 37.3 ??C (99.2 ??F) 03/05/2018 8:03 AM EROSION CONTROL SPECIALIST Respiratory Rate 18 03/05/2018 8:03 AM EROSION CONTROL SPECIALIST Oxygen Saturation 97% 03/05/2018 8:03 AM EROSION CONTROL SPECIALIST Inhaled Oxygen Concentration - - Weight 97 kg (213 lb 13.5 oz) 03/05/2018 8:03 AM EROSION CONTROL SPECIALIST Height 160.5 cm (5' 3.19) 03/05/2018 8:03 AM EROSION CONTROL SPECIALIST Body Mass Index 37.65 03/05/2018 8:03 AM EROSION CONTROL SPECIALIST documented in this encounter Patient Instructions Patient InstructionsChchuyita Velarde APRN, CNP - 03/05/2018 8:00 AM EROSION CONTROL SPECIALIST Will call the lab results Medrol Dose pack as directed, no ibuprofen when on the Medrol Dosepak, but can resume Ibuprofen whencompleted ION CONTROL SPECIALIST documented in this encounter Progress Notes Silvana [...] over the joints. The patient works the hourly shift; therefore, she is uncertain if her [...] this plan of care. Silvana Velarde APRN, LOGGING TRACTOR OPERATOR SWAMP ION CONTROL SPECIALIST documented in this encounter Plan of Treatment Not on filedocumented as of this encounter Results (ABNORMAL) Basic metabolic panel (03/05/2018 8:47 AM EROSION CONTROL SPECIALIST) P athologist Signature Sodium 140 135 - 145 03/05/2018 [facility] GON[place] mmol/L 9:39 AM EROSION CONTROL SPECIALIST [place] Potassium 3.8 3.5 - 5.1 03/05/2018 [facility] GONZALEZ mmol/L 9:39 AM EROSION CONTROL SPECIALIST [place] Comment: . Chloride 103 98 - 107 mmol/L 03/05/2018 9:39 AM EROSION CONTROL SPECIALIST [facility] LISA MCDANI[place] Comment: . CO2 26 22 - 29 mmol/L 03/05/2018 9:39 AM EROSION CONTROL SPECIALIST [facility] [place] Comment: . Creatinine 0.8 0.4 - 1.2 mg/dL 03/05/2018 9:39 AM EROSION CONTROL SPECIALIST C [place] Comment: . BUN 18 5 - 25 mg/dL 03/05/2018 9:39 AM EROSION CONTROL SPECIALIST C [place] Comment: . Glucose 102 (H) 70 - 100 mg/dL 03/05/2018 9:39 AM EROSION CONTROL SPECIALIST [facility] [place] Calcium, Total,S 9.8 8.4 - 10.2 mg/dL 03/05/2018 9:39 AM EROSION CONTROL SPECIALIST [facility] [place] Comment: . Fasting? Yes 03/05/2018 8:55 AM EROSION CONTROL SPECIALIST [facility] CAN NON FALLS Specimen Anatomical Collection Method Collection Time Receive d Time (Source) Location / / Volume Laterality Blood (Blood, 03/05/2018 8:47 AM 03/05/20 8:47 Venous) EROSION CONTROL SPECIALIST AM EROSION CONTROL SPECIALIST Silvaan Velarde APRN, CNP LAB BLOOD ORDERABLES Performing Organization Address City/[facility] [address]/ZIP Code Phon e Number [facility] LISA MCDANIEL [address] [place] [address] (ABNORMAL) Uric acid (03/05/2018 8:47 AM EROSION CONTROL SPECIALIST) athologist Signature Uric Acid 6.3 (H) 2.1 - 6.1 03/05/2018 [facility] mg/dL 2:13 PM [facility] Specimen Anatomical Collection Method Collection Time Receive d Time (Source) Location / / Volume Laterality Blood (Blood, 03/05/2018 8:47 AM 03/05/20 Venous) EROSION CONTROL SPECIALIST 12:17 PM EROSION CONTROL SPECIALIST Silvana Velarde APRN, CNP LAB BLOOD ORDERABLES Performing Organization Address City/State/ZIP Code Phon e Number [facility] [address] [place] [phone] Thyroid Function Tama (03/05/2018 8:47 AM EROSION CONTROL SPECIALIST) athologist Signature TSH, Sensitive 3.57 0.46 - 03/05/2018 [facility] 4.68 mIU/L 1:50 PM EROSION CONTROL SPECIALIST [facility] Comment: The results from this [...] Blood (Blood, 03/05/2018 8:47 AM 03/05/20 Venous) EROSION CONTROL SPECIALIST 12:19 PM EROSION CONTROL SPECIALIST Silvana Velarde APRN, CNP LAB BLOOD ORDERABLES Performing Organization Address City/[facility] [address] [facility]/ZIP Code Phon e Number [facility] [address] [place] [phone] Vitamin B12 (03/05/2018 8:47 AM EROSION CONTROL SPECIALIST) athologist Signature Vitamin B-12 670 228 - 171 03/05/2018 [facility] pg/mL 2:23 PM EROSION CONTROL SPECIALIST [facility] Comment: The results from this [...] Blood (Blood, 03/05/2018 8:47 AM 03/05/20 Venous) EROSION CONTROL SPECIALIST 12:19 PM EROSION CONTROL SPECIALIST Silvana Velarde APRN, CNP LAB BLOOD ORDERABLES Performing Organization Address [facility]/ZIP Code Phon e Number [facility] [address] [place] [phone] Cyclic citrul peptide antibody, IgG (03/05/2018 8:47 AM EROSION CONTROL SPECIALIST) athologist Signature Cyclic <15.6 <20.0 03/06/2018 [facility] Citrullin (Negative) 2:01 PM EROSION CONTROL SPECIALIST LABORATORIES Peptide Ab U Comment: Test Performed by: [facility] [address] [place] [id number] Specimen Anatomical Collection Method Collection Time Receive d Time (Source) Location / / Volume Laterality Blood (Blood, 03/05/2018 8:47 AM 03/05/20 1:31 Venous) EROSION CONTROL SPECIALIST PM EROSION CONTROL SPECIALIST Silvana Velarde APRN, CNP LAB BLOOD ORDERABLES Performing Organization Address City/[facility]/ZIP Code Phon e Number [facility] see result attachment for specific address BREN (03/05/2018 8:47 AM EROSION CONTROL SPECIALIST) athologist Signature BREN 0.2 <=1.0 03/06/2018 [facility] (Negative) 2:01 PM EROSION CONTROL SPECIALIST LABORATORIES U Comment: Test Performed by: [facility] [address] [place] [address] Specimen Anatomical Collection Method Collection Time Receive d Time (Source) Location / / Volume Laterality Blood (Blood, 03/05/2018 8:47 AM 03/05/20 18 1:31 Venous) EROSION CONTROL SPECIALIST PM EROSION CONTROL SPECIALIST Silvana Velarde APRN, CNP LAB BLOOD ORDERABLES Performing Organization Address [facility] Code Phon e Number [facility] see result attachment for specific address Lyme Disease Serology (03/05/2018 8:47 AM EROSION CONTROL SPECIALIST) [facility] Method Time Signature Lyme Disease Negative Negative 03/06/2018 [facility] Serology 1:00 PM EROSION CONTROL SPECIALIST LABORATORIES Comment: No evidence of antibodies to B. burgdorf darrion detected. False negative results may occur in rece ntly infected patients (<=2 weeks) due to low or undet ectable antibody levels to B. burgdorferi. If recent expo sure is suspected, a second sample should be collected and tested in 2-4 weeks. Test Performed by: [facility] [place] [address] Specimen Anatomical Collection Method Collection Time Receive d Time (Source) Location / / Volume Laterality Blood (Blood, 03/05/2018 8:47 AM 03/05/20 18 1:31 Venous) EROSION CONTROL SPECIALIST PM EROSION CONTROL SPECIALIST Silvana Velarde APRN, CNP LAB BLOOD ORDERABLES Performing Organization Address City/[facility]/ZIP Code Phon e Number [facility] [employer] [facility] see result attachment for specific address Rheumatoid factor (03/05/2018 8:47 AM EROSION CONTROL SPECIALIST) athologist Signature Rheumatoid 6 1 - 11 03/05/2018 [facility] Factor IU/mL 1:25 PM EROSION CONTROL SPECIALIST [facility] Specimen Anatomical Collection Method Collection Time Receive d Time (Source) Location / / Volume Laterality Blood (Blood, 03/05/2018 8:47 AM 03/05/20 18 Venous) EROSION CONTROL SPECIALIST 12:19 PM EROSION CONTROL SPECIALIST Silvana Velarde APRN, CNP LAB BLOOD ORDERABLES Performing Organization Address City/[facility]/ZIP Code Phon e Number [facility] [address] [place] [phone] C-reactive protein (03/05/2018 8:47 AM EROSION CONTROL SPECIALIST) athologist Signature CRP 6.7 0.0 - 9.9 03/05/2018 [facility] mg/L 1:42 PM EROSION CONTROL SPECIALIST [facility] Comment: . Specimen Anatomical Collection Method Collection Time Receive d Time (Source) Location / / Volume Laterality Blood (Blood, 03/05/2018 8:47 AM 03/05/20 18 Venous) EROSION CONTROL SPECIALIST 12:19 PM EROSION CONTROL SPECIALIST Silvana Velarde APRN, CNP LAB BLOOD ORDERABLES Performing Organization Address City/[facility]/ZIP Code Phon e Number [facility] [address] [place] [phone] ESR-Sed rate (03/05/2018 8:47 AM EROSION CONTROL SPECIALIST) athologist Signature Sed Rate 10 0 - 29 03/05/2018 [facility] mm/hr 1:42 PM EROSION CONTROL SPECIALIST [facility] Specimen Anatomical Collection Method Collection Time Receive d Time (Source) Location / / Volume Laterality Blood (Blood, 03/05/2018 8:47 AM 03/05/20 18 Venous) EROSION CONTROL SPECIALIST 12:17 PM EROSION CONTROL SPECIALIST Silvana Velarde APRN, CNP LAB BLOOD ORDERABLES Performing Organization Address City/[facility] Phon e Number [facility] [address] [place] [phone] (ABNORMAL) CBC Branch Off w/Diff (03/05/2018 8:47 AM EROSION CONTROL SPECIALIST) [facility] gist Method Time Signature WBC 7.3 3.5 - 10.5 03/05/2018 [facility] GON[facility]Z K/uL 9:39 AM EROSION CONTROL SPECIALIST [place] RBC 4.17 3.90 - 03/05/2018 [facility] 5.00 M/uL 9:39 AM EROSION CONTROL SPECIALIST [place] Hemoglobin 13.8 12.0 - 03/05/2018 [facility] 15.5 g/dL 9:39 AM EROSION CONTROL SPECIALIST [place] Hematocrit 39.5 35.0 - 03/05/2018 [facility] 44.0 % 9:39 AM EROSION CONTROL SPECIALIST [place] Platelets 272 150 - 450 03/05/2018 [facility] K/uL 9:39 AM EROSION CONTROL SPECIALIST [place] MCV 94.7 81.6 - 03/05/2018 [facility] GONZ[facility]Z 98.3 fL 9:39 AM EROSION CONTROL SPECIALIST [place] MCH 33.1 (H) 26.0 - 03/05/2018 [facility] 32.0 pg 9:39 AM EROSION CONTROL SPECIALIST [place] MCHC 34.9 32.0 - 03/05/2018 [facility] 36.0 g/dL 9:39 AM EROSION CONTROL SPECIALIST [place] RDW 13.3 11.9 - 03/05/2018 [facility] G[place] 15.5 % 9:39 AM EROSION CONTROL SPECIALIST [place] Lymphocytes % 28.0 18.0 - 03/05/2018 [facility] 45.0 % 9:39 AM EROSION CONTROL SPECIALIST [place] Mid-size Cells 8.1 3.3 - 10.1 03/05/2018 [facility] % 9:39 AM EROSION CONTROL SPECIALIST [place] Granulocytes/Adam 63.9 45.8 - 03/05/2018 [facility] G[facility]Z trophils 73.7 % 9:39 AM EROSION CONTROL SPECIALIST [place] Lymphocytes 2.0 0.9 - 2.9 03/05/2018 [facility] G[facility] Absolute K/uL 9:39 AM EROSION CONTROL SPECIALIST [place] MIDS Absolute 0.6 0.2 - 0.8 03/05/2018 [facility] K/uL 9:39 AM EROSION CONTROL SPECIALIST [place] Granulocytes/Adam 4.7 2.1 - 8.7 03/05/2018 [facility] G[facility] trophils K/uL 9:39 AM EROSION CONTROL SPECIALIST [place] Absolute Specimen Anatomical Collection Method Collection Time Receive d Time (Source) Location / / Volume Laterality Blood (Blood, 03/05/2018 8:47 AM 03/05/20 18 8:47 Venous) EROSION CONTROL SPECIALIST AM EROSION CONTROL SPECIALIST Silvana Velarde APRN, LOGGING TRACTOR OPERATOR SWAMP LAB BLOOD ORDERABLES Performing Organization Address City/State/ZIP Code Phon e Number [facility] [place] [address] [place] [address] documented in this encounter Visit Diagnoses Diagnosis Polyarticular arthritis - Primary Unspecified polyarthropathy or polyarthr itis, site unspecified Paresthesia of both hands documented in this encounter Care Teams Concrete Pipe Making Machine Operator Relationship Specialty Start Date End Date Silvana Velarde APRN, LOGGING TRACTOR OPERATOR SWAMP PCP - General 11/27/17 12/29/19 [address] [place] [id number] documented as of this encounter
--- OUTSIDE RECORDS SUMMARY | 2022-02-16 10:01 | XMS_ITS | Encounter Summary ---
:1970 Author Organization [facility] Address [address] [place] [address] Care Team Providers Name Role Phone None, Pcp Primary Care Provider Unavailable Encounter Details Date Type Department Care Team Description 07/23/2020 Immunization Family Medicine [address] [place] [address] Social History Tobacco Use Types Packs/Day Years [...] on filedocumented in this encounter Care Teams Cardiovascular Physician Assistant Relationship Specialty Start Date End Date None, Pcp PCP - General Book Or Script Editor 03/30/20 12/19/20 [address] [place] [address] documented as of this encounter
--- OUTSIDE RECORDS SUMMARY | 2022-02-16 10:01 | XMS_ITS | Encounter Summary ---
:1970 Author Organization [facility] Address [address] [place] [address] Care Team Providers Name Role Phone Silvana Velarde APRN, LODGING FACILITIES MANAGER Primary Care Provider [phone] Reason for Visit Reason Onset Date Comments ALLERGIC REACTION 03/06/2018 Encounter Details Date Type Department Care Team Description 03/06/2018 [place]phone [place], ALLERGIC REACTION [address] KEEGAN HUNT [place] [address] [phone] [place], [place] [address] Social History Tobacco Use [...] - 03/06/2018 9:09 AM CST Patient informed DESIGNER Telephone Encounter - Silvana Velarde APRN, KEEGAN - 03/06/2018 8:50 AM SIGN DESIGNER Absolutely from the Prednisone, have her stop it and return to the Ibuprofen. I will call her when all the lab results are done. Marcell, Magnus DESIGNER Telephone Encounter - Shayy Perez MA - 03/06/2018 8:25 AM CST Could this be a side effect? Is there something else you could prescribe? DESIGNER Telephone Encounter - Kylee Anglin - 03/06/2018 8:10 AM CST The patient stopped in this morning stating she had horrible nightmares and is all shaky. She thinksit's an allergic reaction to the Prednisone and no longer wants to take it. Please advise with plan B. DESIGNER documented in this encounter Plan of Treatment Not on filedocumented as of this encounter Visit Diagnoses Not on filedocumented in this encounter Care Teams General Duty Nurse Relationship Specialty Start Date End Date Silvana Velarde APRN, LODGING FACILITIES MANAGER PCP - General 11/27/17 12/29/[address] [place] [address] [place] [address] documented as of this encounter
--- OUTSIDE RECORDS SUMMARY | 2022-02-16 10:01 | XMS_ITS | Encounter Summary ---
:1970 Author Organization [facility] Address [address] [place] [address] Care Team Providers Name Role Phone Silvana Velarde APRN, KEEGAN Primary Care Provider [phone] Reason for Visit Reason Onset Date Comments BODY ACHES CAN'T SLEEP 02/28/2018 Encounter Details Date Type Department Care Team Description 02/28/2018 Telephone [place], BODY ACHES CAN'T SLEEP [address] KEEGAN H[place]T [place] [address] [address] [facility] [address] [phone] [place], [place] [address] Social History Tobacco Use Types Packs/Day Years Used Date Never Assessed Sex Assigned at Date Recorded Not on file documented as of this encounter Miscellaneous Notes Telephone Encounter - Lois Wilkinson LPN - 03/01/2018 8:24 AM CST She will see you on Sunday. STOR WINDER Telephone Encounter - Silvana Velarde APRN, CNP - 02/28/2018 5:15 PM RESISTOR WINDER The patient would need to be seen for narcotic medication. Marcell, Magnus STOR WINDER Telephone Encounter - Leonie Chatterjee RN - 02/28/2018 4:02 PM CST Please advise. STOR WINDER Telephone Encounter - Talya Martinez - 02/28/2018 12:43 PM CST Pt called and made an appt for Sunday03/05/18 for body aches. Pt is also having a hard time getting any sleep and is wondering if she can get a Rx of Tylenol with codeine to help her sleep until her appt. Send Rx to [facility]. Please return call to Pt to advise. STOR WINDER documented in this encounter Plan of Treatment Not on filedocumented as of this encounter Visit Diagnoses Not on filedocumented in this encounter Care Teams Side Sawyer Relationship Specialty Start Date End Date Silvana Velarde APRN, CREDIT CONTROL ASSISTANT PCP - General 11/27/17 12/29/[address] [place], [place] [address] [address] documented as of this encounter
--- OUTSIDE RECORDS SUMMARY | 2022-02-16 10:01 | XMS_ITS | Encounter Summary ---
:1970 Author Organization [facility] Address [address] [place] [address] Care Team Providers Name Role Phone Silvana Velarde Silva HUNT, MARINE STRUCTURAL WELDER Primary Care Provider [phone] Reason for Visit Reason Comments Sore Throat Started Sunday Morning Cough Encounter Details Date Type Department Care Team Description 06/23/2019 Office Visit Shawna Quintanilla Bronchitis (Primary Dx) [address] MD Vasquez [place], [place] [address] [facility] [address] [place] [address] Social History Tobacco Use Types Packs/Day Years Used Date Current Every Day Smoker Smokeless Tobacco: Never Used Alcohol Use Standard Drinks/Week Comments Yes 0 (1 standard drink = 0.6 oz pure alcoho l) Sex Assigned at Date Recorded Not on file documented as of this encounter Last Filed Vital Signs Vital Sign Reading Time Taken Comments Blood Pressure 150/88 06/23/2019 2:07 PM BOOKSTORE MANAGER Pulse 92 06/23/2019 2:07 PM BOOKSTORE MANAGER Temperature 37.3 ??C (99.1 ??F) 06/23/2019 2:07 PM BOOKSTORE MANAGER Respiratory Rate 16 06/23/2019 2:07 PM BOOKSTORE MANAGER Oxygen Saturation - - Inhaled Oxygen Concentration - - Weight 100 kg (220 lb 14.4 oz) 06/23/2019 2:07 PM BOOKSTORE MANAGER Height 157.5 cm (5' 2) 06/23/2019 2:07 PM BOOKSTORE MANAGER Body Mass Index 40.4 06/23/2019 2:07 PM BOOKSTORE MANAGER documented in this encounter Progress Notes Shawna [...] the next week or 2 down at [facility] and he has had just a whole series of medical issues in the last several months. She is also wanting to get a day or 2 off work because she works the third shift at [employer] and is just, running her down at [...] under the weather her blood pressure is /88 pulse is 92 her temp is 99.1 [...] if does not improve or gets worse. STORE MANAGER documented in this encounter Plan of Treatment Not on filedocumented as of this encounter Visit Diagnoses Diagnosis Bronchitis - Primary Bronchitis, not specified as acute or ch ronic documented in this encounter Care Teams Event Crew Technician Relationship Specialty Start Date End Date Silvana Velarde, STOCK RAISER, MARINE STRUCTURAL WELDER PCP - General 11/27/17 12/29/19 100 [facility] [place] [address] documented as of this encounter
--- OUTSIDE RECORDS SUMMARY | 2022-02-16 10:01 | XMS_ITS | Encounter Summary ---
:1970 Author Organization [facility] Address [address] [place] [address] Care Team Providers Name Role Phone Silvana Velarde APRN, KEEGAN Primary Care Provider [phone] Reason for Visit Reason Onset Date Comments RX 07/14/2019 Encounter Details Date Type Department Care Team Description 07/14/2019 Telephone [place], RX [address] [place] HUNT [place] [address] [address] [phone] [place], [place] [address] Social History Tobacco Use [...] away. He is having surgery down at [place] on August 05. She just wants it for preventative. Telephone Encounter - Libra Chen - 07/14/2019 10:43 AM CDT Patient would like to speak to a nurse about ZPAC. Please call her at [phone]. documented in this encounter Plan of Treatment Not on filedocumented as of this encounter Visit Diagnoses Diagnosis Cough - Primary documented in this encounter Care Teams Pillowcase Cleaner Relationship Specialty Start Date End Date Silvana Velarde APRN, SLASHER PCP - General 11/27/17 12/29/19 100 [place] [address] documented as of this encounter
--- OUTSIDE RECORDS SUMMARY | 2022-02-16 10:01 | XMS_ITS | Encounter Summary ---
:[address] [facility] Address [address] [place] [address] Care Team Providers Name Role Phone Silvana Velarde Silva HUNT, LINE ASSEMBLER AIRCRAFT Primary Care Provider [phone] Encounter Details Date Type Department Care Team [...] Polyarticular Re sults for this RATE AM EXPERIMENTAL AIRCRAFT MECHANIC arthritis procedure are in Paresthesia of both the resu lts hands section. LYME DISEASE SEROLOGY Routine 03/05/2018 8:47 Polyarticular Re sults for this AM EXPERIMENTAL AIRCRAFT MECHANIC arthritis procedure are i n the results section. THYROID FUNCTION Routine 03/05/2018 8:47 Paresthesia of both R esults for this CASCADE AM EXPERIMENTAL AIRCRAFT MECHANIC hands procedure are i n the results section. CBC BRANCH OFFICE Routine 03/05/2018 8:47 Polyarticular Result s for this W/DIFF AM EXPERIMENTAL AIRCRAFT MECHANIC arthritis procedure are in Paresthesia of both the resu lts hands section. CYCLIC CITRULLINATED Routine 03/05/2018 8:47 Polyarticular Res ults for this PEPTIDE ANITBODY AM EXPERIMENTAL AIRCRAFT MECHANIC arthritis procedure a re in the results section. SEDIMENTATION RATE, Routine 03/05/2018 8:47 Polyarticular Resu lts for this AUTOMATED AM EXPERIMENTAL AIRCRAFT MECHANIC arthritis procedure are i n the results section. RHEUMATOID FACTOR Routine 03/05/2018 8:47 Polyarticular Result s for this AM EXPERIMENTAL AIRCRAFT MECHANIC arthritis procedure are i n the results section. C-REACTIVE PROTEIN Routine 03/05/2018 8:47 Polyarticular Resul ts for this AM EXPERIMENTAL AIRCRAFT MECHANIC arthritis procedure are i n the results section. BREN Routine 03/05/2018 8:47 Polyarticular Results for this AM EXPERIMENTAL AIRCRAFT MECHANIC arthritis procedure are i n the results section. URIC ACID Routine 03/05/2018 8:47 Polyarticular Results for this AM EXPERIMENTAL AIRCRAFT MECHANIC arthritis procedure are i n the results section. VITAMIN B12 Routine 03/05/2018 8:47 Paresthesia of both Resul ts for this AM EXPERIMENTAL AIRCRAFT MECHANIC hands procedure are i n the results section. BASIC METABOLIC PANEL Routine 03/05/2018 8:47 Polyarticular Re sults for this AM EXPERIMENTAL AIRCRAFT MECHANIC arthritis procedure are in Paresthesia of both the resu lts hands section. documented in this encounter Results Glomerular filtration rate (GFR) (03/05/2018 8:47 AM EXPERIMENTAL AIRCRAFT MECHANIC) P athologist Signature GFR >60 03/05/2018 [facility] 9:39 AM [facility] >60 03/05/2018 [facility] [place] GFR 9:39 AM [facility] Comment: GFR calculated from serum creatinine v alue Chronic Kidney Disease less than 60 mL/m in/1.73 m2 Kidney Failure less than 15 mL/min/1.73 m2 Note: effective 09/05/06 IDMS-Traceable MDRD Study Equation used. Specimen Anatomical Collection Method Collection Time Receive d Time (Source) Location / / Volume Laterality 03/05/2018 8:47 AM 8 8:47 EXPERIMENTAL AIRCRAFT MECHANIC AM EXPERIMENTAL AIRCRAFT MECHANIC Silvana Velarde APRN, LINE ASSEMBLER AIRCRAFT LAB BLOOD ORDERABLES Performing Organization Address City/State/ZIP Code Phon e Number [facility] [address] [place] [address] (ABNORMAL) CBC Branch Off w/Diff (03/05/2018 8:47 AM EXPERIMENTAL AIRCRAFT MECHANIC) Patholo gist Method Time Signature WBC 7.3 3.5 - 10.5 03/05/2018 [facility] K/uL 9:39 AM EXPERIMENTAL AIRCRAFT MECHANIC [place] RBC 4.17 3.90 - 03/05/2018 [facility] 5.00 M/uL 9:39 AM EXPERIMENTAL AIRCRAFT MECHANIC [place] Hemoglobin 13.8 12.0 - 03/05/2018 [facility] 15.5 g/dL 9:39 AM EXPERIMENTAL AIRCRAFT MECHANIC [place] Hematocrit 39.5 35.0 - 03/05/2018 [facility] 44.0 % 9:39 AM EXPERIMENTAL AIRCRAFT MECHANIC [place] Platelets 272 150 - 450 03/05/2018 [facility] [place] K/uL 9:39 AM EXPERIMENTAL AIRCRAFT MECHANIC [place] MCV 94.7 81.6 - 03/05/2018 [facility] [place] 98.3 fL 9:39 AM EXPERIMENTAL AIRCRAFT MECHANIC [place] MCH 33.1 (H) 26.0 - 03/05/2018 [facility] 32.0 pg 9:39 AM EXPERIMENTAL AIRCRAFT MECHANIC [place] MCHC 34.9 32.0 - 03/05/2018 [facility] 36.0 g/dL 9:39 AM EXPERIMENTAL AIRCRAFT MECHANIC [place] RDW 13.3 11.9 - 03/05/2018 [facility] 15.5 % 9:39 AM EXPERIMENTAL AIRCRAFT MECHANIC [place] Lymphocytes % 28.0 18.0 - 03/05/2018 [facility] G[place] 45.0 % 9:39 AM EXPERIMENTAL AIRCRAFT MECHANIC [place] Mid-size Cells 8.1 3.3 - 10.1 03/05/2018 [facility] G[place] % 9:39 AM EXPERIMENTAL AIRCRAFT MECHANIC [place] Granulocytes/Adam 63.9 45.8 - 03/05/2018 [facility] GNOZALEZ trophils 73.7 % 9:39 AM EXPERIMENTAL AIRCRAFT MECHANIC [place] Lymphocytes 2.0 0.9 - 2.9 03/05/2018 [facility] [place] Absolute K/uL 9:39 AM EXPERIMENTAL AIRCRAFT MECHANIC [place] MIDS Absolute 0.6 0.2 - 0.8 03/05/2018 [facility] G[place] K/uL 9:39 AM EXPERIMENTAL AIRCRAFT MECHANIC [place] Granulocytes/Adam 4.7 2.1 - 8.7 03/05/2018 [facility] GONZALEZ trophils K/uL 9:39 AM EXPERIMENTAL AIRCRAFT MECHANIC [place] Absolute Specimen Anatomical Collection Method Collection Time Receive d Time (Source) Location / / Volume Laterality Blood (Blood, 03/05/2018 8:47 AM 03/05/20 18 8:47 Venous) EXPERIMENTAL AIRCRAFT MECHANIC AM EXPERIMENTAL AIRCRAFT MECHANIC Silvana Velarde APRN, LINE ASSEMBLER AIRCRAFT LAB BLOOD ORDERABLES Performing Organization Address City/State/ZIP Code Phon e Number [facility] [place] [address] [place] [address] ESR-Sed rate (03/05/2018 8:47 AM EXPERIMENTAL AIRCRAFT MECHANIC) P athologist Signature Sed Rate 10 0 - 29 03/05/2018 [facility] mm/hr 1:42 PM EXPERIMENTAL AIRCRAFT MECHANIC [facility]ENTER [facility] Specimen Anatomical Collection Method Collection Time Receive d Time (Source) Location / / Volume Laterality Blood (Blood, 03/05/2018 8:47 AM 03/05/20 18 Venous) EXPERIMENTAL AIRCRAFT MECHANIC 12:17 PM EXPERIMENTAL AIRCRAFT MECHANIC Silvana Velarde APRN, CNP LAB BLOOD ORDERABLES Performing Organization Address [facility] Phon e Number [facility] [address] [place] [id number] C-reactive protein (03/05/2018 8:47 AM EXPERIMENTAL AIRCRAFT MECHANIC) athologist Signature CRP 6.7 0.0 - 9.9 03/05/2018 [facility] mg/L 1:42 PM EXPERIMENTAL AIRCRAFT MECHANIC [facility] Comment: . Specimen Anatomical Collection Method Collection Time Receive d Time (Source) Location / / Volume Laterality Blood (Blood, 03/05/2018 8:47 AM 03/05/20 18 Venous) EXPERIMENTAL AIRCRAFT MECHANIC 12:19 PM EXPERIMENTAL AIRCRAFT MECHANIC Silvana Velarde APRN, CNP LAB BLOOD ORDERABLES Performing Organization Address [facility] Phon e Number [facility] [address] [place] [address] Rheumatoid factor (03/05/2018 8:47 AM EXPERIMENTAL AIRCRAFT MECHANIC) athologist Signature Rheumatoid 6 1 - 11 03/05/2018 [facility] Factor IU/mL 1:25 PM [facility] Specimen Anatomical Collection Method Collection Time Receive d Time (Source) Location / / Volume Laterality Blood (Blood, 03/05/2018 8:47 AM 03/05/20 18 Venous) EXPERIMENTAL AIRCRAFT MECHANIC 12:19 PM EXPERIMENTAL AIRCRAFT MECHANIC Silvana Velarde APRN, CNP LAB BLOOD ORDERABLES Performing Organization Address [facility] Phon e Number [facility] [address] [place] [address] Lyme Disease Serology (03/05/2018 8:47 AM EXPERIMENTAL AIRCRAFT MECHANIC) [facility] Method Time Signature Lyme Disease Negative Negative 03/06/2018 [facility] Serology 1:00 PM EXPERIMENTAL AIRCRAFT MECHANIC LABORATORIES Comment: No evidence of antibodies to B. burgdorf darrion detected. False negative results may occur in rece ntly infected patients (<=2 weeks) due to low or undet ectable antibody levels to B. burgdorferi. If recent expo sure is suspected, a second sample should be collected and tested in 2-4 weeks. Test [facility]: [facility] [place] [id number] Specimen Anatomical Collection Method Collection Time Receive d Time (Source) Location / / Volume Laterality Blood (Blood, 03/05/2018 8:47 AM 03/05/20 18 1:31 Venous) EXPERIMENTAL AIRCRAFT MECHANIC PM EXPERIMENTAL AIRCRAFT MECHANIC Silvana Velarde APRN, CNP LAB BLOOD ORDERABLES Performing Organization Address City/State/ZIP Code Phon e Number [facility] see result attachment for specific address BREN (03/05/2018 8:47 AM EXPERIMENTAL AIRCRAFT MECHANIC) athologist Signature BREN 0.2 <=1.0 03/06/2018 [facility] (Negative) 2:01 PM EXPERIMENTAL AIRCRAFT MECHANIC LABORATORIES U Comment: Test [facility]formed [facility]: [facility] [place] [id number] Specimen Anatomical Collection Method Collection Time Receive d Time (Source) Location / / Volume Laterality Blood (Blood, 03/05/2018 8:47 AM 03/05/20 18 1:31 Venous) EXPERIMENTAL AIRCRAFT MECHANIC PM EXPERIMENTAL AIRCRAFT MECHANIC Silvana Velarde APRN, CNP LAB BLOOD ORDERABLES Performing Organization Address City/[facility]/ZIP Code Phon e Number [facility] see result attachment for specific address Cyclic citrul peptide antibody, IgG (03/05/2018 8:47 AM EXPERIMENTAL AIRCRAFT MECHANIC) athologist [facility] Cyclic <15.6 <20.0 03/06/2018 [facility] Citrullin (Negative) 2:01 PM EXPERIMENTAL AIRCRAFT MECHANIC LABORATORIES Peptide Ab U Comment: Test [facility]formed [facility]: [facility] [address] [place] [address] Specimen Anatomical Collection Method Collection Time Receive d Time (Source) Location / / Volume Laterality Blood (Blood, 03/05/2018 8:47 AM 03/05/20 18 1:31 Venous) EXPERIMENTAL AIRCRAFT MECHANIC PM EXPERIMENTAL AIRCRAFT MECHANIC Silvana Velarde APRN, CNP LAB BLOOD ORDERABLES Performing Organization Address City/State/ZIP Code Phon e Number [facility] see result attachment for specific address Vitamin B12 (03/05/2018 8:47 AM EXPERIMENTAL AIRCRAFT MECHANIC) athologist Signature Vitamin B-12 633 200 - 073 03/05/2018 [facility] pg/mL 2:23 PM EXPERIMENT[facility] AIRCRAFT [facility] Comment: The results from this [...] Blood (Blood, 03/05/2018 8:47 AM 03/05/20 Venous) EXPERIMENTAL AIRCRAFT MECHANIC 12:19 PM EXPERIMENTAL AIRCRAFT MECHANIC Silvana Velarde APRN, CNP LAB BLOOD ORDERABLES Performing Organization Address [facility]/ZIP Code Phon e Number [facility] [address] [place], [place] [id number] Thyroid Function [place] (03/05/2018 8:47 AM EXPERIMENTAL AIRCRAFT MECHANIC) athologist Signature TSH, Sensitive 3.57 0.46 - 03/05/2018 [facility] 4.68 mIU/L 1:50 PM EXPERIMENT[facility] AIRCRAFT [facility]IC [facility] Comment: The results from this [...] Blood (Blood, 03/05/2018 8:47 AM 03/05/20 Venous) EXPERIMENTAL AIRCRAFT MECHANIC 12:19 PM EXPERIMENTAL AIRCRAFT MECHANIC Silvana Velarde APRN, CNP LAB BLOOD ORDERABLES Performing Organization Address City/[facility]/ZIP Code Phon e Number [facility] [address] [place] [address] (ABNORMAL) Uric acid (03/05/2018 8:47 AM EXPERIMENTAL AIRCRAFT MECHANIC) P athologist Signature Uric Acid 6.3 (H) 2.1 - 6.1 03/05/2018 [facility] mg/dL 2:13 PM [facility] Specimen Anatomical Collection Method Collection Time Receive d Time (Source) Location / / Volume Laterality Blood (Blood, 03/05/2018 8:47 AM 03/05/20 18 Venous) EXPERIMENTAL AIRCRAFT MECHANIC 12:17 PM EXPERIMENTAL AIRCRAFT MECHANIC Silvana Velarde APRN, LINE ASSEMBLER AIRCRAFT LAB BLOOD ORDERABLES Performing Organization Address City/State/ZIP Code Phon e Number [facility] [address] [place] [phone] (ABNORMAL) Basic metabolic panel (03/05/2018 8:47 AM EXPERIMENTAL AIRCRAFT MECHANIC) athologist Signature Sodium 140 135 - 145 03/05/2018 [facility] mmol/L 9:39 AM EXPERIMENTAL AIRCRAFT MECHANIC [place] Potassium 3.8 3.5 - 5.1 03/05/2018 [facility] mmol/L 9:39 AM EXPERIMENTAL AIRCRAFT MECHANIC [place] Comment: . Chloride 103 98 - 107 mmol/L 03/05/2018 9:39 AM EXPERIMENTAL AIRCRAFT MECHANIC [facility] [place] Comment: . CO2 26 22 - 29 mmol/L 03/05/2018 9:39 AM EXPERIMENTAL AIRCRAFT MECHANIC [facility] [place] Comment: . Creatinine 0.8 0.4 - 1.2 mg/dL 03/05/2018 9:39 AM EXPERIMENTAL AIRCRAFT MECHANIC [facility] [place] Comment: . BUN 18 5 - 25 mg/dL 03/05/2018 9:39 AM EXPERIMENTAL AIRCRAFT MECHANIC [facility] [place] Comment: . Glucose 102 (H) 70 - 100 mg/dL 03/05/2018 9:39 AM EXPERIMENTAL AIRCRAFT MECHANIC [facility] [place] Calcium, Total,S 9.8 8.4 - 10.2 mg/dL 03/05/2018 9:39 AM EXPERIMENTAL AIRCRAFT MECHANIC [facility] [place] Comment: . Fasting? Yes 03/05/2018 8:55 AM EXPERIMENTAL AIRCRAFT MECHANIC [facility] [place] Specimen Anatomical Collection Method Collection Time Receive d Time (Source) Location / / Volume Laterality Blood (Blood, 03/05/2018 8:47 AM 03/05/20 18 8:47 Venous) EXPERIMENTAL AIRCRAFT MECHANIC AM EXPERIMENTAL AIRCRAFT MECHANIC Silvana Velarde APRN, LINE ASSEMBLER AIRCRAFT LAB BLOOD ORDERABLES Performing Organization Address City/State/ZIP Code Phon e Number [facility] LISA MCDANIEL [address] [place] [address] documented in this encounter Visit Diagnoses Diagnosis Polyarticular arthritis Unspecified polyarthropathy or polyarthr itis, site unspecified Paresthesia of both hands documented in this encounter Care Teams Steel Shot Header Operator Relationship Specialty Start Date End Date Silvana Velarde APRN, LINE ASSEMBLER AIRCRAFT PCP - General 11/27/17 12/29/[address] [place] [address] [place] [address] documented as of this encounter
--- OUTSIDE RECORDS SUMMARY | 2022-02-16 10:01 | XMS_ITS | Clinical Summary ---
:1970 Author Organization [facility] Address [address] [place] [address] Care Team Providers Name Role Phone Evgeny [...] ss Type Group PREFERRED ONE PREFERRED ONE [id number] 2020-Present [address] [place] [address] Care Teams Senior Engineer Relationship Specialty Start Date End Date Evgeny Vann MD PCP - General 12/20/[address] [place] [address]
--- OUTSIDE RECORDS SUMMARY | 2022-02-16 10:01 | XMS_ITS | Encounter Summary ---
:1970 Author Organization [facility] Address [address] [place] [address] Care Team Providers Name Role Phone Silvana Velarde APRN, CNP Primary Care Provider [phone] Reason for Referral Consultation (Routine) - Canceled Specialty Diagnoses / Procedures Referred By Contact Refer red To Contact Rheumatology Diagnoses Polyarticular arthritis Silvana Velarde, [place] - Referrals KEEGAN HUNT [address] [facility] [address] [place] [address] [place] [address] Fax: Referral ID Status Reason Start Expiration Visits Visits Date Date Requested Authorized [id number] Canceled Specialty 09/07/2018 1 1 Services 8 Required Scheduling Instructions Please schedule the patient at [facility] in [place]. MACY OPERATIONS COORDINATOR Encounter Details Date Type Department Care Team Description 03/11/2018 Orders Only [place] Polyarticular arthritis [address] M, KEEGAN HUNT (Primary Dx) [place], [place] 100 [facility] [address] [place] [address] Social History Tobacco Use Types Packs/Day Years [...] unspecified documented in this encounter Care Teams Soft Sugar Operator Head Relationship Specialty Start Date End Date Silvana Velarde, DAYCARE DIRECTOR, BOILERMAKER ASSEMBLY AND ERECTION PCP - General 11/27/17 12/29/19 100 [facility] [place] [address] documented as of this encounter
--- OUTSIDE RECORDS SUMMARY | 2022-02-16 10:01 | XMS_ITS | Encounter Summary ---
:1970 Author Organization [facility] Address [address] [place] [address] Care Team Providers Name Role Phone Evgeny Vann MD Primary Care Provider Reason for Visit Reason Onset Date Comments Colonoscopy 12/01/2021 Encounter Details Date Type Department Care Team Description 12/01/2021 Telephone Nathalie Evgeny Vann MD Colonoscopy [address] [place], [place] [address] [place], [place] [phone] (Wo rk) Social History Tobacco Use Types [...] on filedocumented in this encounter Care Teams Latex Fashions Designer Relationship Specialty Start Date End Date Evgeny Vann MD PCP - General 12/20/[address] [place] [address] documented as of this encounter
--- OUTSIDE RECORDS SUMMARY | 2022-02-16 10:01 | XMS_ITS | Encounter Summary ---
:1970 Author Organization [facility] Address [address] [place] [address] Care Team Providers Name Role Phone None, Pcp Primary Care Provider Unavailable Reason for Visit Reason Comments Chest Pain Congestion, not pain Encounter Details Date Type Department Care Team Description 10/14/2020 Office Visit Evgeny Green, Bronchitis (Primary [address] MD Dx) [place], [place] [address] [place] [address] [place], [place] [phone] Social History Tobacco Use Types Packs/Day Years [...] other clear broths. General instructions ?? Take jxif-dad-fgfdhvw and prescription medicines only as told by [...] not have soap and water, use hand canvas cutter. ?? Avoid touching your mouth, face, eyes, [...] get better within 7-10 days. ?? Take hunu-cqx-ojxadjs and prescription medicines only as told by your doctor. This information is not intended to replace advice given to you by your health care provider. Make sure you discuss any questions you have with your health care provider. Document Released: 09/25/2008 Document Revised: 04/17/2019 Document Reviewed: 11/30/2017 [employer] Patient Education ?? 2020 [employer]. documented in this encounter Progress Notes Evgeny [...] other clear broths. General instructions ?? Take gyfp-xex-bbqugnv and prescription medicines only as told by [...] not have soap and water, use hand canvas cutter. ?? Avoid touching your mouth, face, eyes, [...] get better within 7-10 days. ?? Take gmhv-lvx-qatiyvj and prescription medicines only as told by your doctor. This information is not intended to replace advice given to you by your health care provider. Make sure you discuss any questions you have with your health care provider. Document Released: 09/25/2008 Document Revised: 04/17/2019 Document Reviewed: 11/30/2017 [employer] Patient Education ?? 2020 [employer]. Return if symptoms worsen or fail to improve. Note created using voice dictation software. documented in this encounter Plan of Treatment Not on filedocumented as of this encounter Visit Diagnoses Diagnosis Bronchitis - Primary Bronchitis, not specified as acute or ch ronic documented in this encounter Care Teams Aerospace Project Manager Relationship Specialty Start Date End Date None, Pcp PCP - General Transport Coordinator 03/30/20 12/19/20 [address] [place] [address] documented as of this encounter
== END 2022-01-20 23:59 | disposition home or self-care (01) ==
LOC: WOUND 02-16 09:52
PROVIDERS: PCP Nurse Practitioner Family; Visit Provider Nurse Practitioner Family
DX: M86.471 Chronic osteomyelitis with draining sinus, right ankle and foot (principal); L97.312 Non-pressure chronic ulcer of right ankle with fat layer exposed
CPT/HCPCS: 99212; G0277

== ENCOUNTER 2022-01-16 10:54 | Outpatient (CLI) | payer OTHER, SELFPAY | END 2022-01-16 10:55 | disposition home or self-care (01) | LOC: WOUND 10:55 | PROVIDERS: PCP Nurse Practitioner Family; Visit Provider Nurse Practitioner Family | DX: M86.471 Chronic osteomyelitis with draining sinus, right ankle and foot (principal); L97.312 Non-pressure chronic ulcer of right ankle with fat layer exposed | CPT/HCPCS: 97597; G0277 ==

== ENCOUNTER 2022-01-19 08:00 | Outpatient (RCR) | payer OTHER, SELFPAY | END 2022-01-20 23:59 | disposition home or self-care (01) | LOC: WOUND 08:00 | PROVIDERS: PCP Nurse Practitioner Family; Visit Provider Nurse Practitioner Family | DX: M86.471 Chronic osteomyelitis with draining sinus, right ankle and foot (principal); L97.312 Non-pressure chronic ulcer of right ankle with fat layer exposed; T81.31XA Disruption of external operation (surgical) wound, not elsewhere classified, initial encounter | CPT/HCPCS: G0277 ==

== ENCOUNTER 2022-01-29 09:41 | Emergency (ER) | payer OTHER, SELFPAY ==
[2022-01-29 09:48] VITALS: BP 183/81; PULSE 62; RESP 18; TEMP 36.2; O2SAT 98; BMI 37.7
--- NOTE | 2022-01-29 10:03 | CRLHL7_ITS ---
For Patients: As a result of the Cures Act, medical imaging exams and procedure reports are released immediately into your electronic medical record. You may view this report before your referring provider. If you have questions, please contact your health care provider. INDICATION: Right knee pain/injury. COMPARISON: None. TECHNIQUE: Right knee 3 views. IMPRESSION: No acute fracture. Alignment is within normal limits. Joint spaces are maintained. Small joint effusion. Dictated by Gal Ragland MD @ 01/29/2022 10:39:43 AM (Electronically Signed)
--- NOTE | 2022-01-29 10:16 | ED.NURSE ---
Patient to radiology.
--- OUTSIDE RECORDS SUMMARY | 2022-01-29 10:52 | XMS_ITS | Clinical Summary ---
:1970 Author Organization [facility] Address [address] [place] [address] Care Team Providers Name Role Phone Elsewhere, Pcp Primary Care Provider Unavailable Source Comments Patient records contain information from all sites at [facility]. For routine questions regarding patient records, call [phone] during business hours, M-F 8:00 AM - 5:00 PM Central Time. Record requests for emergency care only can be directed to [phone] at any time.[facility] Allergies Active Allergy Reactions Severity Noted Date Comments Meperidine (Pf) Nausea Only 04/30/2012 Demerol HCL Hydrocodone-Acetaminophen GI intolerance 04/30/2012 Meperidine Other (see comments) Oxycodone-Acetaminophen Other (see comments) Medications Medication Sig Dispensed Refills Start Date End Date Status IBUPROFEN ORAL Take by mouth as needed. 0 10/06/2010 Active Active Problems No known active problems Immunizations Name Administration Dates Next Due HepB, Unspecified 03/22/1995, 09/27/1994, 08/23/1994 Influenza, Seasonal, Injectable 02/17/1997 MMR 08/23/1994 Measles 07/22/1969 Td, (Adult) Unspecified 08/23/1994 Tdap 03/06/2012 Family History Medical History Relation Name Comments Maria De Jesus Gehrig's disease Father Bone Grandfather Heart attack Grandfather Lung cancer Grandfather Bipolar disorder Mother Depression Mother Relation Name Status Comments Father Grandfather Mother Social History Tobacco Use Types Packs/Day Years Used Date Smoking Tobacco: Every Day Cigarettes 1.5 25 S tarted: 1985 Smokeless Tobacco: Never Alcohol Use Standard Drinks/Week Comments Yes 0 (1 standard drink = 0.6 oz pure alcoho l) Sex Assigned at Date Recorded Not on file Last Filed Vital Signs Vital Sign Reading Time Taken Comments Blood Pressure 155/94 06/24/2018 8:08 AM ELECTROLYTIC DE SCALER Pulse 69 06/24/2018 8:08 AM ELECTROLYTIC DE SCALER Temperature 36.7 ??C (98.1 ??F) 06/24/2018 8:08 AM ELECTROLYTIC DE SCALER Respiratory Rate 15 10/13/2015 7:53 AM CDT Oxygen Saturation - - Inhaled Oxygen Concentration - - Weight 98.2 kg (216 lb 7.9 oz) 06/24/2018 8:08 AM ELECTROLYTIC DE SCALER Height 157.5 cm (5' 2) 06/27/2018 2:06 PM ELECTROLYTIC DE SCALER Body Mass Index 37.84 06/24/2018 8:08 AM ELECTROLYTIC DE SCALER Plan of Treatment Health Maintenance Due Date Last Done Comments CT Colonography 1970 Cologuard 1970 Colonoscopy 1970 Colorectal Cancer Screening 1970 FIT 1970 HIV Screening 1970 Hepatitis C Screening 1970 Tobacco Cessation counseling 1970 Pneumococcal vaccine (0-64 years) 1974 (1 - PCV) Zoster Vaccines (1 of 2) 2018 COVID-19 Vaccine (3 - Booster for 10/08/2020 08/13/2020, Pfizer series) Depression Screening (Annual 04/23/2021 PHQ-2) Mammogram 08/10/2021 08/10/2020, 11/21/2010 (Performed elsewhere) Influenza Vaccine (#1) 2022 02/17/1997, 02/17/1997, 02/17/1997 Fasting Glucose for Diabetes 03/31/2023 03/31/2020, 012 Screening DTaP,Tdap,and Td Vaccines (3 - Td 03/06/2024 03/06/2014, , or Tdap) 08/23/1994, Additional history exists Lipid (Cholesterol) Screening 03/31/2025 03/31/2020 Hepatitis B Vaccines Completed 03/22/1995, 03/22/1995, 09/27/1994, Additional history exists Insurance Payer Benefit Plan / Subscriber ID Effective Phone Address [facility] Dates PREFERREDONE PREFERREDONE [id number] 2015-Pre [phone] PPO ADMINISTRATIVE ADMINISTRATIVE sent [id number] [employer] [place] [phone] Care Teams Division Chief Relationship Specialty Start Date End Date Elsewhere, Pcp PCP - General Internal Medicine 11/26/19
--- OUTSIDE RECORDS SUMMARY | 2022-01-29 10:52 | XMS_ITS | Encounter Summary ---
:1970 Author Organization [facility] Address [address] [place] [id number] Care Team Providers Name Role Phone Elsewhere, Pcp Primary Care Provider Unavailable Encounter Details Date Type Department Care Team Description 02/28/2021 Orders Only RST PCP [facility] Lois Trejo M.D. [address] [place] [address] [phone] (Wo rk) Social History Tobacco Use Types Packs/Day Years Used Date Smoking Tobacco: Every Day Cigarettes 1.5 25 S tarted: 1985 Smokeless Tobacco: Never Alcohol Use Standard Drinks/Week Comments Yes 0 (1 standard drink = 0.6 oz pure alcoho l) Sex Assigned at Date Recorded Not on file documented as of this encounter Plan of Treatment Not on filedocumented as of this encounter Visit Diagnoses Not on filedocumented in this encounter Care Teams Supervisor Color Making Relationship Specialty Start Date End Date Elsewhere, Pcp PCP - General Internal Medicine 11/26/19 documented as of this encounter
--- OUTSIDE RECORDS SUMMARY | 2022-01-29 10:52 | XMS_ITS | Encounter Summary ---
:1970 Author Organization [facility] Address [address] [place] [id number] Care Team Providers Name Role Phone Elsewhere, Pcp Primary Care Provider Unavailable Reason for Referral Specialty Diagnoses / Procedures Referred By Contact Refer red To Contact Lois Lopez M.D. [facility] [address] [place] [phone] Referral ID Status Reason Start Date Expiration Date Visits Requ ested Visits Authorized ORDER SORTER Encounter Details Date Type Department Care Team Description 03/04/2021 Orders Only RST PCP [facility] Lois Lopez M.D. [address] [place] [address] [phone] (Wo rk) Social History Tobacco Use Types Packs/Day Years Used Date Smoking Tobacco: Every Day Cigarettes 1.5 25 S tarted: 1985 Smokeless Tobacco: Never Alcohol Use Standard Drinks/Week Comments Yes 0 (1 standard drink = 0.6 oz pure alcoho l) Sex Assigned at Date Recorded Not on file documented as of this encounter Plan of Treatment Scheduled Referrals Name Type Priority Associated Order Schedule Diagnoses Covid immunization Outpatient Referral Routine Ex pected: office visit Booster 021 (Approximate), Expires: 03/04/2022 documented as of this encounter Visit Diagnoses Not on filedocumented in this encounter Care Teams Social Science Instructor Relationship Specialty Start Date End Date Elsewhere, Pcp PCP - General Internal Medicine 11/26/19 documented as of this encounter
--- OUTSIDE RECORDS SUMMARY | 2022-01-29 10:52 | XMS_ITS | Clinical Summary ---
:1970 Author Organization [facility] [place] [address] Care Team Providers Name Role Phone Silvana Velarde SERVICE MANAGER Primary Care Provider Unavailable Pcp, No Unavailable Unavailable Allergies Active Allergy Reactions Severity Noted Date Comments Meperidine 10/19/2010 Hydrocodone-Acetaminophen GI Upset 04/30/2012 Meperidine *Unknown 02/08/2021 Meperidine (Pf) Nausea Only 04/30/2012 Demerol HCL Oxycodone *Unknown 02/08/2021 Medications Medication Sig Dispensed Refills Start Date End Date Status acetaminophen-codein Take 1-2 Tablets by 20 Tablet 0 2 Active e (Tylenol-Codeine mouth every 4 hours #3) 300-30 mg per if needed for Pain. tabletIndications: Max acetaminophen Abscess of right dose: 4000mg in 24 heel, Acute hrs. osteomyelitis of right calcaneus (HC) levoFLOXacin 0 01/02/2022 Active (LEVAQUIN) 750 mg tablet Active Problems Problem Noted Date Calcific Achilles tendinitis of left lower extremity Bone spur of posterior portion of left calcaneus Encounters Date Type Specialty Care Team Description 01/24/2022 Office Visit Tyshawn Mohr, Post-op (Left ankle 5 week DPM post op) 01/24/2022 Travel 01/20/2022 Telephone Tyshawn Mohr Questio ns DPM 01/10/2022 Office Visit Tyshawn Mohr, Post-op (Left 2 week post DPM op) 01/10/2022 Travel 12/27/2021 Office Visit Tyshawn Mohr, Post-op (Right initial DPM post op visit) 12/27/2021 Travel 12/19/2021 Office Visit Tyshawn Mohr, Surgery Scheduled DPM 12/19/2021 Orders Only Scanner <No scans attac hed> 12/19/2021 Orders Only Scanner <No scans attac hed> 12/19/2021 Orders Only Scanner <No scans attac hed> 12/19/2021 Orders Only Scanner <No scans attac hed> 12/19/2021 Orders Only Scanner <No scans attac hed> 12/19/2021 Lab Requisition Unknown, Doctor 12/19/2021 Telephone Tyshawn Mohr, Surgica l Followup DPM 12/16/2021 Telephone Tyshawn Mohr, Surgery Scheduled DPM 12/15/2021 Telephone Tyshawn Mohr, form DPM 12/07/2021 Office Visit Tyshawn Mohr, Post-op (Left achilles, DPM DOS 08/29/21, 3 m onths post op) 12/07/2021 Travel 11/02/2021 Office Visit Tyshawn Mohr, Post-op (Left foot, DOS DPM 08/29/21, 2 month s post op) 11/02/2021 Travel from Last 3 Months Family History Medical History Relation Name Comments Good Health Brother 2 Good Health Daughter 4 Good Health Daughter 5 Good Health Daughter 6 Other Father ALS Other Mother chronic back Psychiatric illness Mother depression Good Health Sister 2 Relation Name Status Comments Brother 1 Alive Brother 2 Daughter 1 Alive Daughter 2 Alive Daughter 3 Alive Daughter 4 Daughter 5 Daughter 6 Father Alive Mother Alive Sister 1 Alive Sister 2 Social History Tobacco Use Types Packs/Day Years Used Date Current Every Day Smoker Cigarettes 0.25 Smokeless Tobacco: Never Used Tobacco Cessation: Ready to Quit: No; Co unseling Given: Yes Comments: trying to quit Alcohol Use Standard Drinks/Week Comments Yes 0 (1 standard drink = 0.6 oz pure alcoho l) seldom Alcohol Habits Answer Date Recorded How often do you have a drink containing alcohol? Not asked How many drinks containing alcohol do you have on a typical Not asked day when you are drinking? How often do you have six or more drinks on one occasion? No t asked Comment: seldom 03/30/2021 Sex Assigned at Date Recorded Not on file COVID-19 Exposure Response Date Recorded In the last 10 days, have you been in contact with No / Unsu re 01/24/2022 12:50 PM CDT someone who was confirmed or suspected to have Coronavirus/COVID-19? Obstetrics History Last Filed Vital Signs Vital Sign Reading Time Taken Comments Blood Pressure 119/71 01/10/2022 1:07 PM CDT Pulse 74 01/24/2022 1:26 PM CDT Temperature 36.9 ??C (98.4 ??F) 01/24/2022 1:26 PM CDT Respiratory Rate 16 08/29/2021 4:00 PM CDT Oxygen Saturation 95% 01/24/2022 1:26 PM CDT Inhaled Oxygen Concentration - - Weight 99.4 kg (219 lb 1.6 oz) 08/29/2021 10:57 AM CDT Height 160 cm (5' 3) 08/29/2021 10:57 AM CDT Body Mass Index 38.81 08/29/2021 10:57 AM CDT Plan of Treatment Health Maintenance Due Date Last Done Comments Pneumococcal series for age 19-64 (1 - 1974 PCV) Tdap 06/30/1979 Depression screening for age 12+ 1980 Hepatitis C screening for age 18-79 1986 Tetanus booster 1988 Pap test for age 21-65 1989 Colonoscopy through age 75 2013 Lipids for age 45-75 2013 Mammogram for age 45-75 2013 10/27/2010 Zoster (shingles) series for age 50+ (1 of 2018 2) COVID-19 vaccine series (3 - Booster for 10/08/2020 021, 07/23/2020 Pfizer series) Influenza for age 50-64 12/22/2021 BMI (ht and wt on same day) for age 18+ 03/31/2022 03/31/20 21 Medical Devices Implanted Type Area Earth Burner Device Shelf Model / Identifier Expiration Serial / Lot Date Implant System, Biocomposite Achilles Speedbridge W/Jumpstart Right: [employer] 12/21/2022 [id number] / Implanted: Qty: 1 on 04/04/2021 by Tyshawn Rucker DPM at [facility] Ankle / [id number] Suture [place], Biocomposite [place] C, Closed Eyelet Le ft: [employer] 04/22/2025 [id number] / Implanted: Qty: 2 on 08/29/2021 by Tyshawn Rucker DPM at [facility] Ankle / [id number] Procedures Procedure Name Priority Date/Time Associated Diagnosis Comme nts LAB TRACKING EVENT Routine 12/19/2021 3:30 PM CDT PATH TISSUE EXAM Routine 12/19/2021 3:30 PM Resul ts for this CDT procedure are i n the results section. SCAN-LABORATORY 12/19/2021 12:00 AM Resul ts for this REPORT CDT procedure are i n the results section. SCAN-PATHOLOGY 12/19/2021 12:00 AM Result s for this REPORT CDT procedure are i n the results section. SCAN-PATHOLOGY 12/19/2021 12:00 AM Result s for this REPORT CDT procedure are i n the results section. SCAN-PATHOLOGY 12/19/2021 12:00 AM Result s for this REPORT CDT procedure are i n the results section. SCAN-RADIOLOGY 12/19/2021 12:00 AM Result s for this REPORT CDT procedure are i n the results section. from Last 3 Months Results LAB TRACKING EVENT (12/19/2021 3:30 PM CDT) Specimen Anatomical Collection Method Collection Time Receive d Time (Source) Location / / Volume Laterality Other (Other) Client Collect / 12/19/2021 3:30 PM 11/22 Unknown CDT 10:28 PM CDT Doctor Unknown LAB BILL ONLY Performing Organization Address City/State/ZIP Code Phon e Number [facility] [address] [place] [address] LABORATORY-CENTRAL 2000 LABORATORY PATH TISSUE EXAM (12/19/2021 3:30 PM CDT) Component Value Ref Test Analysis Performed At [facility] gist Range Method Time Signature Case Report Pathology Report ?Case: [id number] ? 12/21/2021 [facility] Authorizing Provider: ??Unkn own, Doctor ?Collected: ? 12/19/2021 1530 ? 3:23 PM HEAL TH Ordering Location: ? [facility] CENTRAL LAB ?Received: ?12/20/2021 0814 ? CDT LILLIAN SILVA-Julia Pathologist: ? Haja Holland ? ENTRAL ? MD [place] ? LABORATORY Specimen: ?Right, calcan eus ? Final BONE, RIGHT CALCANEOUS, EXCISION: 2021 [facility] Electronically Diagnosis 1. Benign bone and fibrous tissue 3:23 P [facility] signed by 2. Negative for osteomyelitis CDT EL-Haja Rosenthal MD LABORATORY on 022 at 3:23 PM Clinical Ms. Grullon is 12/21/2021 [facility] Information a 51 y.o. with 3:23 PM HEALTH osteomyelitis. CDT LABORATORY-C ENTRAL LABORATORY Gross A) Received in formalin, lab eled with the patient's name and right calcaneus, is a 0.6 x 0.3 x 0.2 fragments of klein firm bone. ??The specimen is submitted in toto in 1 cassette following decalcification. 12/21/2021 [facility] Description 3:23 PM HEALTH JPW 12/20/2021 CDT LABORATORY-C ENTRAL LABORATORY Microscopic The final 12/21/2021 [facility] Description diagnosis is 3:23 PM HEALTH based on CDT LABORATORY-C microscopic ENTRAL examination of LABORATORY appropriate sections of all specimens. Additional 12/21/2021 [facility] Information Interpreted at [facility] [employer] [facility], Central Laboratory - [address], [place] [address] 3:23 PM HEALTH CDT LABORATORY-C ENTRAL LABORATORY Specimen Anatomical Collection Method Collection Time Receive d Time (Source) Location / / Volume Laterality Other (Right) 12/19/2021 3:30 PM 12/21/19 22 8:14 CDT AM CDT Doctor Unknown PATHOLOGY/CYTOLOGY Performing Organization Address City/State/ZIP Code Phon e Number [facility] [address] [place] [address] LABORATORY-CENTRAL 2000 LABORATORY SCAN-RADIOLOGY REPORT (12/19/2021 12:00 AM CDT) Narrative This result has an attachment that is no t available. Scanner OTHER SCAN-PATHOLOGY REPORT (12/19/2021 12:00 AM CDT)Only the most recent of3 results within the time period is included. Narrative This result has an attachment that is no t available. Scanner OTHER SCAN-LABORATORY REPORT (12/19/2021 12:00 AM CDT) Narrative This result has an attachment that is no t available. Scanner OTHER from Last 3 Months Insurance Payer Benefit Plan / Subscriber ID Effective Dates Phone Addre ss Type Group PREFERRED ONE PREFERRED ONE [id number] 2020-Present [address] [place] [address] Candy Grullon Personal/Family Self 1970 [phone] [id number] [facility] 1 M (Home) [facility] [place] [address] Advance Directives Latest Code Status on File Code Status Date Activated Date Inactivated Comments Full Code 08/29/2021 9:54 AM 08/29/2021 7:58 PM Code Status Discussion: Reviewed Preferences Full Code 04/04/2021 10:26 AM 04/04/2021 6:33 PM Code Status Discussion: Reviewed Preferences Care Teams Lumber Carrier Relationship Specialty Start Date End Date Silvana Velarde NP PCP - General Emergency Medicine 03/16/21 [address] [place] [address] Pcp, No 03/16/21 .
--- OUTSIDE RECORDS SUMMARY | 2022-01-29 10:52 | XMS_ITS | Encounter Summary ---
:1970 Author Organization [facility] Address [address] [place] [address] Care Team Providers Name Role Phone Elsewhere, Pcp Primary Care Provider Unavailable Reason for Referral Outpatient (Routine) - Closed Specialty Diagnoses / Procedures Referred By Contact Refer red To Contact Diagnoses Occupational Health Examination Teresa Henderson M.D. [facility] Procedures PVM OCC Hearing screen [address] [place] [address] Referral ID Status Reason Start Date Expiration Date Visits Requ ested Visits Authorized [id number] Closed 09/23/2020 09/23/2021 1 1 Reason for Visit Reason Comments Hearing Screening Bing Encounter Details Date Type Department Care Team Description 09/23/2020 Clinical Support [facility] Saumya Ascencio Examination (Primary in [place], [address]) [place], [place] [address] [address] [place], [place] [phone] (Work) [phone] Social History Tobacco Use Types Packs/Day Years Used Date Smoking Tobacco: Every Day Cigarettes 1.5 25 S tarted: 1985 Smokeless Tobacco: Never Alcohol Use Standard Drinks/Week Comments Yes 0 (1 standard drink = 0.6 oz pure alcoho l) Sex Assigned at Date Recorded Not on file documented as of this encounter Progress Notes Beverly Nascimento L.PCarineN. - 09/23/2020 2:15 PM CDT Hearing Screening completed for Bing. Ears checked, cerumen noted in both ears. See scanned results. documented in this encounter Plan of Treatment Scheduled Orders Name Type Priority Associated Diagnoses Order S chedule PVM OCC Hearing Procedures Routine Occupational Health Order ed: 09/23/2020 screen Examination documented as of this encounter Visit Diagnoses Diagnosis Occupational Health Examination - Primar y documented in this encounter Care Teams Viscosity Worker Relationship Specialty Start Date End Date Elsewhere, Pcp PCP - General Internal Medicine 11/26/19 documented as of this encounter
--- OUTSIDE RECORDS SUMMARY | 2022-01-29 10:52 | XMS_ITS | Encounter Summary ---
:1970 Author Organization [facility] Address [address] [place] [address] Care Team Providers Name Role Phone Elsewhere, Pcp Primary Care Provider Unavailable Reason for Referral Specialty Diagnoses / Procedures Referred By Contact Refer red To Contact Lois Lopez M.D. [facility] [address] [place] [phone] Referral ID Status Reason Start Date Expiration Date Visits Requ ested Visits Authorized EEPER Encounter Details Date Type Department Care Team Description 02/28/2021 Orders Only RST PCP HLTH MNT Lois Lopez M.D. [address] [place] [phone] (Wo rk) Social History Tobacco [...] pected: office visit Booster 021 (Approximate), Expires: 02/28/2022 documented as of this encounter Visit Diagnoses Not on filedocumented in this encounter Care Teams Tagman Relationship Specialty Start Date End Date Elsewhere, Pcp PCP - General Internal Medicine 11/26/19 documented as of this encounter
--- OUTSIDE RECORDS SUMMARY | 2022-01-29 10:53 | XMS_ITS | Encounter Summary ---
:1970 Author Organization [facility] Address [address] [place] [address] Care Team Providers Name Role Phone Mily Contreras APRN, C.N.P., D.N.P. Primary Care Provider Encounter Details Date Type Department Care Team Description 03/19/2018 Abstract DATA ABSTRACTION Provider, Historical Social History Tobacco Use Types Packs/Day Years Used Date Smoking Tobacco: Every Day Sex Assigned at Date Recorded Not on file documented as of this encounter Plan of Treatment Not on filedocumented as of this encounter Visit Diagnoses Not on filedocumented in this encounter Care Teams Bank Appraiser Relationship Specialty Start Date End Date Mily Contreras APRN, C.N.P., PCP - General Family Medicine 03/22/19 D.N.P. [address] [place] [phone] documented as of this encounter
--- OUTSIDE RECORDS SUMMARY | 2022-01-29 10:53 | XMS_ITS | Encounter Summary ---
:1970 Author Organization [facility] Address [address] [place] [address] Care Team Providers Name Role Phone Isabelle Henderson APRN, C.N.P. Primary Care Provider [phone] Encounter Details Date Type Department Care Team Description 07/18/2016 - Hospital Encounter HX [facility] Marjan Velarde 12/05/2016 HITESH Ascencio, C.N.P. [address] [place] [address] (Wo rk) Social History Tobacco Use Types Packs/Day Years Used Date Smoking Tobacco: Every Day Sex Assigned at Date Recorded Not on file documented as of this encounter Medications at Time of Discharge Medication Sig Dispensed Refills Start Date End Date IBUPROFEN ORAL Take by mouth as needed. 0 011 documented as of this encounter Consult Notes Sami Davis, P.T. - 07/18/2016 12:00 AM CDT [id number] PHYSIAL THERAPY INITIAL EVALUATION REFERRING PHYSICIAN Silvana Rios. PRIMARY DIAGNOSIS Right Achilles tendinitis. CHIEF COMPLAINT/REASON FOR VISIT This is a 46-year-old female who comes into therapy secondary to pain that she has been having in the posterior aspect of the right foot. This has been going on for over a year now. She notes that she has had somewhat of a long history with this. She was treated for this problem a year ago by the physician. However, there has been little results. She has been dealing with this for a year now. She notes that it is quite sore when she gets up in the morning. She can walk some of the discomfort out. However, as the day progresses, it will become worse again. 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 She is moving around much of the day. She notes that the pain can be quite severe, this being 5 to 6 out of 10. She does not take anything specific for pain. She has tried I believe ibuprofen in the past. She notes it is difficult for her to walk longer distances. Going up and down stairs can be quite painful, especially going down stairs. PHYSICAL EXAMINATION Upon observation, patient ambulates into therapy with slight noted deviation in her gait. This does appear to be related to how she is walking now to try and avoid some of her discomfort. In looking ather foot, there is certainly callus formation over the outside edge of her heel. She does not present with significant pronation at this time. However, she does present with a considerable amount of tightness in her heel cords. Her gastroc/soleus is quite tight. There is also significant tenderness with palpation especially over the medial aspect of the insertion of the Achilles tendon. There is noted thickening of this area. She does complain of some pain with resistance to plantar flexion. However, this is not significant at this time. We did treat today with a trial of iontophoresis over this area x20 minutes followed by some stretching of the gastroc/soleus. We did instruct patient with these exercises to do at home as well. We also did fit patient with some orthotics to see if this gives herany relief over the Achilles region. Hopefully with some support over the arch, this will take some stress off of the Achilles tendon. IMPRESSION/REPORT/PLAN Treatment diagnosis: This would be Achilles tendinitis of the right heel. PROBLEM LIST/FINDINGS 1. Swelling over the Achilles tendon insertion. 2. Pain. Rehabilitation potential is fair. It is noted that this has been a chronic situation for her. There are no precautions at this time. PLAN Will be to see patient 1 to 2 times a week for the next 4 to 6 weeks if effective. CLINICAL DECISION MAKING Number of examination elements is 1. Personal factors/comorbidities affecting plan of care: This would be 0. Presentation is stable. Complexity of evaluation is low. GOALS SHORT-TERM GOALS: Patient is independent with home exercises addressing mobility/strength of the heel cords. LONG-TERM GOALS: 1. To decrease overall discomfort from a 5 to 6 out of 10 to a 2 out of 10 or better. 2. Patient able to ambulate at work throughout the day and not have any discomfort within 4 to 6 weeks. 3. Patient able to ascend/descend stairs without a lot of difficulty. Hopefully she will have no pain with this as well. Physician Signature Date Angella Fay/mikey Electronically Signed By: SAMI DAVIS On: 07/27/2016 06:46 AM Source: [facility] [id number] Document Id: [id number] documented in this encounter Miscellaneous Notes Miscellaneous - Conversion, Historical Provider Ser - 07/25/2016 3:44 PM CDT Coding Summary-Paper Based CODING DATE: 07/25/2016 FINAL [facility] STATUS: Still Patient/Expected to Rtn Oupt [facility] PAYOR: [employer] ADMIT DX: REASON FOR VISIT DX: FINAL DX: PRINCIPAL: M76.61 Achilles tendinitis, right leg SECONDARY: PROCEDURES DOCTOR NAME DATE NOTE: The code number assigned matches the documented diagnosis and / or procedure in the patient's chart. However, the narrative phrase printed from the coding software may appear abbreviated, or result in slightly different terminology. Coded By: JACKIE MORELOS Date Saved: 07/25/2016 03:44 pm Source: [facility] 4th aspect Document Id: [id number] documented in this encounter Plan of Treatment Not on filedocumented as of this encounter Visit Diagnoses Not on filedocumented in this encounter Care Teams Supervisory It Specialist Relationship Specialty Start Date End Date Isabelle Henderson APRN, C.N.P. PCP - General 10/05/16 08/17/17 documented as of this encounter
--- OUTSIDE RECORDS SUMMARY | 2022-01-29 10:53 | XMS_ITS | Encounter Summary ---
:1970 Author Organization [facility] Address [address] [place] [address] Care Team Providers Name Role Phone Elsewhere, Pcp Primary Care Provider Unavailable Encounter Details Date Type Department Care Team Description 07/07/2020 Admin Visit Department of Family Medicine, [facility] in [place], [place] [address] [place] [address] Social History Tobacco Use Types Packs/Day Years [...] Diagnoses Not on filedocumented in this encounter Additional Health Concerns Infection Onset Date Last Indicated Resolved Time COVID19 Pending 07/07/2020 07/07/2020 07/07/2020 9:46 PM CDT documented as of this encounter Care Teams Machinery Engineer Relationship Specialty Start Date End Date Elsewhere, Pcp PCP - General Internal Medicine 11/26/19 documented as of this encounter
--- OUTSIDE RECORDS SUMMARY | 2022-01-29 10:53 | XMS_ITS | Encounter Summary ---
:1970 Author Organization [facility] Address [address] [place] [id number] Care Team Providers Name Role Phone Mily Contreras APRN C.N.P., D.N.P. Primary Care Provider Reason for Visit Reason Comments New Patient Outpatient (Routine) - Closed Specialty Diagnoses / Procedures Referred By Contact Refer red To Contact Rheumatology Diagnoses Polyarthritis Silvana Velarde, C.N.P. [address] [place] [phone] Referral ID Status Reason Start Date Expiration Date Visits Requ ested Visits Authorized [id number] Closed 03/12/2018 03/12/2019 1 1 Encounter Details Date Type Department Care Team Description 06/24/2018 Comprehensive Visit Division of Austin Webb M.D., Ph.D. Epicondylitis Medial Left (Primary Dx); Rheumatology in Destiney Narvaez M.B.BCarineSCarine [address] [place] [address] Polyarthritis; [place], [place] Epicondylitis Lateral Right [address] [place] [id number] Social History Tobacco Use Types Packs/Day Years Used Date Smoking Tobacco: Every Day Cigarettes 1.5 25 S tarted: 1985 Smokeless Tobacco: Never Alcohol Use Standard Drinks/Week Comments Yes 0 (1 standard drink = 0.6 oz pure alcoho l) Sex Assigned at Date Recorded Not on file documented as of this encounter Last Filed Vital Signs Vital Sign Reading Time Taken Comments Blood Pressure 155/94 06/24/2018 8:08 AM OVERHEAD CRANE OPERATOR Pulse 69 06/24/2018 8:08 AM OVERHEAD CRANE OPERATOR Temperature 36.7 ??C (98.1 ??F) 06/24/2018 8:08 AM OVERHEAD CRANE OPERATOR Respiratory Rate - - Oxygen Saturation - - Inhaled Oxygen Concentration - - Weight 98.2 kg (216 lb 7.9 oz) 06/24/2018 8:08 AM OVERHEAD CRANE OPERATOR Height 161.1 cm (5' 3.43) 06/24/2018 8:08 AM OVERHEAD CRANE OPERATOR Body Mass Index 37.84 06/24/2018 8:08 AM OVERHEAD CRANE OPERATOR documented in this encounter Consult Notes Destiney Narvaez M.B.B.S. - 06/24/2018 8:00 AM CST SUBJECTIVE CHIEF COMPLAINT / REASON FOR CONSULT Candy Grullon is a 47 y.o. female who was referred by Silvana Velarde C.N.P. for polyarthralgia. HISTORY OF PRESENT ILLNESS Candy Grullon is a very pleasant 47-year-old female who presents accompanied to this visitby her mother. She has a past medical history pertinent for degenerative arthritis involving the left knee (failed several pharmacologic and non pharmacological methods of treatment) status post arthroscopic surgery in 2011. She also underwent a right knee arthroscopy for treatment of a right knee medial meniscal tear in 2011. 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 There is no pertinent family history of autoimmune disease, but her sister may have a variant of lupus. Her dad was diagnosed with ALS. Her mother has fibromyalgia. She herself denies any past medical history, of any major medical conditions. She is on no chronic medications. She has been smoking for last 30 years, and continues to smoke 3/4th of a pack of cigarettes daily. She denies any medical issues were in relation to smoking thus far. In February of 2018, she was evaluated in Family Medicine for joint pain of 4 weeks duration, that was progressive and worsening. She reports pain involving her elbows, both ankles and right hip area. She states she has noted some swelling in her left elbow in particular, and her right ankle. These have not been warm. She has not had any joint aspirations. She has not had any x-rays thus far. She is unable to quantify morning stiffness, and works night shifts. She states she has significant difficulty getting out of the bed after 7 to 8 hr of sleep. She has also been more fatigued. She denies pain in the right groin, but right trochanteric discomfort that can also be associated with pain radiatingdown her right leg. Denies any back pain. Denies any sacroiliac discomfort. There is no history of psoriasis or IBD. Denies any GI concerns. She has been using Tylenol 3 on occasion for pain relief, usually at night. She does not take any other pain medications. She was given a Medrol Dosepak back in February of 2018, but this did not help her symptoms, and in fact made her feel very shaky. She has not noted any skin rashes, photosensitivity, recurrent oral or nasal ulcers, Raynaud's, digital ulcers, pleurisy, pericarditis, and denies any fevers, chills, night sweats or unintentional weight loss. She had blood work in February that I have reviewed. She had normal blood counts, normal ESR and CRP, negative BREN RF and CCP antibody, normal vitamin B12 and thyroid cascade. Lyme screen was negative.Her basic metabolic panel was largely unremarkable and uric acid level was minimally elevated at 6.3mg/dL. She does not have any tophi and there is no history pertinent for acute gouty episodes. She is up-to-date on her routine preventative screening. No previous history of malignancy. She has never had a colonoscopy thus far. Previous Reports Reviewed:lab reports and outside records The following portions of the patient's history were reviewed and updated as appropriate: allergies,current medications and problem list. REVIEW OF SYSTEMS Pertinent positives and negatives as documented in the above history of present illness. Constitutional: Positive for fatigue. Musculoskeletal: Positive for arthralgias, back pain, pain or stiffness in the joints, joint swelling and muscle pain/stiffness. Neurological: Positive for numbness or shooting pain in hands, arms, legs, or feet and weakness in arms or legs. The following systems were negative: Skin, Eyes, ENT, CV, Respiratory, GI, , Hematologic, Psych OBJECTIVE PHYSICAL EXAM Physical Exam Gen: Alert, oriented, appropriate affect, no apparent distress. Eye: Clear conjunctivae and lids. Ent: Moist oral mucosa without mucositis. Lym: No cervical or supraclavicular adenopathy. Skin: No rheumatologic rashes or ulcers. Vess: Normal radial and pedal pulses. No edema. Heart: Regular rate. No murmurs or rubs. Lung: Clear to auscultation bilaterally. Abd: No tenderness or hepatosplenomegaly noted. Spin: Cervical and lumbar range of motion is appropriate for age and habitus. Join: Right trochanteric tenderness. Tenderness at the medial and lateral epicondyles of both elbows, more on the left than right. No synovitis of the upper and lower extremities including hands, wrists, elbows, knees, ankles or feet bilaterally. Negative tinels and phalens test. No SI tenderness. Range of motion of the extremities including shoulders and hips are somewhat restricted rather than full, but overall within functional limits bilaterally. There is a tender retrocalcaneal bulge consistentwith bursitis. Neur: Appropriate gait for age. Proximal and distal strength in the upper and lower extremities is grossly intact. Disease Activity- NA ASSESSMENT / PLAN #1 Polyarthralgia #2 Bilateral medial and lateral epicondylitis #3 Right retro calcaneal bursitis, longstanding #4 DJD bilateral knees, status post arthroscopy #5 Right trochanteric bursitis #6 Family history of fibromyalgia #7 Nicotine dependence This is a very pleasant 47-year-old female who presents with progressive polyarthralgias involving her left more than right elbows, right more than left ankle, and right hip. Her blood work is reassuring and does not demonstrate any elevated inflammatory markers. BREN, RF and CCP are negative. Clinically, she does not endorse any features consistent with a connective tissue disease. On exam, I do not see any features concerning for an inflammatory arthritis. I also do not see any features of dactylitis. More so, she did not benefit from Medrol, that was trialed in february. She does have a right trochanteric bursitis and I will arrange a cortisone injection for symptomaticrelief. Physical therapy with gluteal stretching and strengthening exercises will be helpful in the long run. With regards to her knees, symptoms are predominantly degenerative and her joints are currently cool to the touch with no tenderness over the joint lining and fairly good range of motion. In her elbows, she is significantly tender over the epicondyles, but the joint lining is unremarkable forsynovitis. There is no warmth, and range of motion is normal. Similarly, I do not see any synovitis in her feet or ankles. She does have a retrocalcaneal bursitis which is longstanding on the right side. I have discussed with her that the likelihood of an autoimmune inflammatory process seems low at this time. I will obtain some x-rays, of her hands, feet and elbows. If there is any concern for periarticular osteopenia or erosions, we may benefit from further imaging such as an MRI. If x-rays are unremarkable or show predominantly degenerative changes, I will recommend symptomatic management through her primary care provider. I will also refer her to our colleagues in hand therapy and foot clinic, for discussion of modalities to assist with epicondylitis and retrocalcaneal bursitis respectively. Nicotine cessation was advised. The increased risk of rheumatoid arthritis in smokers was discussed,and that she may benefit from cessation. Multiple other questions were addressed. It was a pleasure seeing her today. HEAD CRANE OPERATOR documented in this encounter Plan of Treatment Not on filedocumented as of this encounter Results Non-Guided Aspiration/Injection - Large Joint (06/27/2018 1:00 PM OVERHEAD CRANE OPERATOR) Narrative Cortez Medina M.D. - 06/27/2018 1:00 PM OVERHEAD CRANE OPERATOR Cortez Medina M.D. ? 06/27/2018 ??1:16 PM Right trochanteric bursa steroid injecti on Date/Time: 06/27/2018 1:05 PM Performed by: CORTEZ MEDINA Authorized by: DESTINEY NARVAEZ Care team members present: ??Izabela Greco, Dr. Flako Zamora, Dr. Nany Paula (on floor) [employer] utilized: stereotyper helper not ne eded ?? Risks discussed with: patient Procedural risks discussed, including (b ut not limited to) the following: allergic reaction, bleeding, bruising, t ransient increased pain, infection, hematoma and possible continu ed pain Consent obtained: written The benefits, risks and alternatives to the procedure and the potential need for sedation or anesthesia as well as the names, roles, and responsibilities of healthcare team memb ers performing significant interventional tasks were discussed with the patient and/or decision maker: yes ?? The benefits, risks and alternatives to the possible need for blood products were discussed with the patient and/or decision maker: not addressed All relevant documentation and testing w ere reviewed and available. All required blood products, implants, devic es and/or special equipment were made available as applicable. The pre-pr ocedure verification was conducted, the correct site was marked i f required, and the procedural time out was conducted prior to performi ng the procedure and confirmed in a procedural pause: yes ?? Procedure purpose: therapeutic Appropriate hand hygiene, gown, cap, mas k, protective eyewear, sterile gloves, skin preparation, sterile drape, and strict aseptic technique were utilized as applicable for the procedure : yes ?? Skin preparation: chlorhexidine Anesthesia method: pre-procedure topical application and pre-procedure local infiltration ??Pre-procedure topical agents: ethyl c hloride ??Pre-procedure local infiltration: lidocaine 1% plain Procedure location: hip - Hip site: R greater troch bursa Site prep: patient was prepped and drape d in usual sterile fashion ?? Patient position: side-lying Procedure performed: injection only Needle gauge: 22 G The following medications were administe red at the target site(s): ??Local anesthetic: 2 mL lidocaine 10 m g/mL (1 %) ??Corticosteroid: 80 mg methylPREDNISol one acetate 40 mg/mL Procedure completed successfully: yes Complications: no apparent complications ?Post-procedure instructions: avoid st renuous activity for 2 days, avoid submersion of procedure site for 48 hour s and post-procedure activity instructions provided ??Discharge instructions: ice area as n eeded for comfort, pain management instructions, dressing care and follow-u p with ordering provider Destiney Peña PROCEDURE/MINOR SURGICAL ORD ERABLES DX Foot Ankle Bilateral 3 Views (06/24/2018 10:15 AM OVERHEAD CRANE OPERATOR) Anatomical Region Laterality Modality Lower Extremity, Foot, Ankle, Musculoskeletal RST LOS, Bilat eral Digital Radiography Musculoskeletal ARZ LOS, Muskuloskeletal FLA LOS Specimen (Source) Anatomical Collection Method Collection Time Re ceived Time Location / / Volume Laterality 06/24/2018 10:27 AM OVERHEAD CRANE OPERATOR Impressions 06/24/2018 10:30 AM OVERHEAD CRANE OPERATOR IMPRESSION: ??Corticated ossicles adjacent to the medial malleoli, larger on the left and likely related to old trauma. A ssociated post-traumatic deformity of the left medial malleolus. Enthesophytes of the bases of the 5th metatarsals with a small amount of adjacent heteroto pic ossification on the left. Calcaneal spurs. Mild bilateral hindfoot valgus an d pes planus. Mild scattered degenerative changes. No periarticular e rosions. Heterotopic ossification adjacent to the lateral aspect of the he ads of the 1st metatarsals. Narrative 06/24/2018 10:30 AM OVERHEAD CRANE OPERATOR EXAM: ??DX FOOT ANKLE BILATERAL 3 VIEWS Procedure Note Fay Baptiste M.D. - 06/24/2018For matting of this note might be different from the original. EXAM: DX FOOT ANKLE BILATERAL 3 VIEWS IMPRESSION: Corticated ossicles adjacent to the medial malleoli, larger on the left and likely related to old trauma. A ssociated post-traumatic deformity of the left medial malleolus. Enthesophytes of the bases of the 5th metatarsals with a small amount of adjacent heteroto pic ossification on the left. Calcaneal spurs. Mild bilateral hindfoot valgus an d pes planus. Mild scattered degenerative changes. No periarticular e rosions. Heterotopic ossification adjacent to the lateral aspect of the he ads of the 1st metatarsals. Destiney Peña IMG DIAGNOSTIC IMAGING PROCE CARR[place]LL DX Elbow Bilateral 2 Views (06/24/2018 10:15 AM OVERHEAD CRANE OPERATOR) Anatomical Region Laterality Modality Upper Extremity, Elbow, Musculoskeletal RST LOS, Bilateral Digital Radiography Musculoskeletal ARZ LOS, Muskuloskeletal FLA LOS Specimen (Source) Anatomical Collection Method Collection Time Re ceived Time Location / / Volume Laterality 06/24/2018 10:25 AM OVERHEAD CRANE OPERATOR Impressions 06/24/2018 10:27 AM OVERHEAD CRANE OPERATOR IMPRESSION: ??Heterotopic ossification adjacent to the medial and lateral epicondyles bilaterally. Medial hypertro phic changes right elbow. No joint effusions or periarticular erosion. Narrative 06/24/2018 10:27 AM OVERHEAD CRANE OPERATOR EXAM: ??DX ELBOW BILATERAL 2 VIEWS Procedure Note Fay Baptiste M.D. - 06/24/2018For matting of this note might be different from the original. EXAM: DX ELBOW BILATERAL 2 VIEWS IMPRESSION: Heterotopic ossification adj acent to the medial and lateral epicondyles bilaterally. Medial hypertro phic changes right elbow. No joint effusions or periarticular erosion. Destiney HernandezSCarine IMG DIAGNOSTIC IMAGING PROCE DURES DX Hand Bilateral 3 Views (06/24/2018 10:15 AM OVERHEAD CRANE OPERATOR) Anatomical Region Laterality Modality Upper Extremity, Hand, Musculoskeletal RST LOS, Bilateral Digital Radiography Musculoskeletal ARZ LOS, Muskuloskeletal FLA LOS Specimen (Source) Anatomical Collection Method Collection Time Re ceived Time Location / / Volume Laterality 06/24/2018 10:24 AM OVERHEAD CRANE OPERATOR Impressions 06/24/2018 10:25 AM OVERHEAD CRANE OPERATOR IMPRESSION: ??Mild scattered degenerative changes, greatest at the DIP joints. No periarticular erosions. Mild soft tissue swelling over the MCP joints. Narrative 06/24/2018 10:25 AM OVERHEAD CRANE OPERATOR EXAM: ??DX HAND BILATERAL 3 VIEWS Procedure Note Fay Baptiste M.D. - 06/24/2018For matting of this note might be different from the original. EXAM: DX HAND BILATERAL 3 VIEWS IMPRESSION: Mild scattered degenerative changes, greatest at the DIP joints. No periarticular erosions. Mild soft tissue swelling over the MCP joints. Destiney HernandezSCarine SIFUENTES DIAGNOSTIC IMAGING PROCE DURJON documented in this encounter Visit Diagnoses Diagnosis Epicondylitis Medial Left - Primary Polyarthritis Epicondylitis Lateral Right Polyarthritis Epicondylitis Medial Left Epicondylitis Lateral Right Polyarthritis Epicondylitis Medial Left Epicondylitis Lateral Right Polyarthritis Epicondylitis Medial Left Epicondylitis Lateral Right documented in this encounter Care Teams Concrete Products Dispatcher Relationship Specialty Start Date End Date Mily Contreras APRN, C.N.P., PCP - General Family Medicine 03/22/19 D.N.P. [address] [place] [address] documented as of this encounter
--- OUTSIDE RECORDS SUMMARY | 2022-01-29 10:53 | XMS_ITS | Encounter Summary ---
:1970 Author Organization [facility] Address [address] [place] [address] Care Team Providers Name Role Phone Unavailable Primary Care Provider Unavailable Encounter Details Date Type Department Care Team Description 06/08/2014 Hospital Encounter HX [facility] Manuela Hi P.A.-C. Social History Tobacco Use Types Packs/Day Years Used Date Smoking Tobacco: Never Assessed Sex Assigned at Date Recorded Not on file documented as of this encounter Last Filed Vital Signs Vital Sign Reading Time Taken Comments Blood Pressure - - Pulse - - Temperature - - Respiratory Rate - - Oxygen Saturation - - Inhaled Oxygen Concentration - - Weight - - Height 161 cm (5' 3.39) 06/08/2014 8:52 AM POWERED BRIDGE SPECIALIST Body Mass Index - - documented in this encounter Medications at Time of Discharge Medication Sig Dispensed Refills Start Date End Date IBUPROFEN ORAL Take by mouth as needed. 0 011 documented as of this encounter Consult Notes Manuela Brewer - 06/08/2014 8:40 AM CST [id number] Ms. Grullon is a very pleasant 43-year-old female who is here today for her second in her series of Supartz injections to her left knee for pain secondary to degenerative joint disease. After a briefdiscussion, her left knee was prepared in a sterile fashion. A small amount of 1% lidocaine along with 1 standard Supartz was injected into the knee without complication. The procedure was tolerated well. If she has any questions, she was encouraged to call. Otherwise, she will follow up next week forher 3rd injection. Manuela Brewer P.A.-C./mikey Electronically Signed By: MANUELA BREWER PA-C On: 06/15/2014 11:03 AM Source: [facility] MHSDOLBEYNONRADSYS Document Id: [id number] RED BRIDGE SPECIALIST documented in this encounter Miscellaneous Notes Miscellaneous - Manuela Brewer - 06/08/2014 12:11 PM CST Ambulatory Patient Summary [facility] [address], [address] [place], [place] [id number] Visit Information Name: CANDY GRULLON [facility] Number: [id number] Current Date: 06/08/2014 12:11:57 Physicians Attending Provider: MANUELA BREWER PA-C Primary Care Provider: WILLEM SAEED RN, TELEPHONE LINES REPAIRER CANDY GRULLON has been given the following list of follow-up instructions, medication list, and patient education materials: Follow-up Instructions Your Medications Here is a list of your medications. It is important to take your medications as directed. Use a pillbox or chart to help remind you to take your medications. Please let your doctor or nurse know if you have problems taking your medications. Medication/Strength How to Take Indications/Special Instructions/Comments/Notes for Patient Medication Changes/Routing albuterol (albuterol CFC free 90 mcg/inh inhalation aerosol) 2 puff(s), Inhalation, every 4 hours asneeded for Shortness of breath / Wheezing ibuprofen (Advil) Oral, as needed Stop Taking the Following Medications: Medication list as of 06-08-14 12:11 Attention: If you have any medications at home that are not on this list, DO NOT take them until youcontact your provider for clarification. Give a copy of your medication list to your primary care provider. Update your medication list any time medications or doses are changed and carry your medication list at all times in case of emergency. Electronically Signed By: MANUELA BREWER PA-C Signed On:08-JUN-2014 12:11:53 Your Allergies & Intolerances Substance Reaction Symptoms Category Comments Demerol HCl nausea Drug acetaminophen-HYDROcodone vomiting Drug Your Problem List Problem Status Onset Comments Nicotine dependence Active 1982 05/31/11 date of onset unknown Throat Pain Active 06/27/2012 Boil of skin and subcutaneous tissue NOS Active 03/28/2013 Your Upcoming Appointments Date Time Location Provider 06/17/2014 09:45 [facility] Manuela Brewer PA-C Attention: Contact your local Clinic if further appointment detail needed. Your Goals/Additional instructions: Source: [facility] POWERCHART Document Id: [id number] RED BRIDGE SPECIALIST Miscellaneous - Manuela Brewer - 06/08/2014 12:11 PM CST Ambulatory Discharge Medication List [facility] [address] [facility], [address] [place], [place] [phone] Visit Information Name: CANDY GRULLON [facility] Number: [id number] Visit Date: 06/08/2014 12:11:56 Attending Provider: MANUELA BREWER PA-C Primary Care Provider: WILLEM SAEED RN, TELEPHONE LINES REPAIRER CANDY GRULLON has been given the following list of medications: Your Medications It is important to take your medications as directed. Use a pill box or chart to help remind you to take your medications. Please let your doctor or nurse know if you have problems taking your medications. Medication/Strength How to Take Indications/Special Instructions/Comments/Notes for Patient Medication Changes/Routing albuterol (albuterol CFC free 90 mcg/inh inhalation aerosol) 2 puff(s), Inhalation, every 4 hours asneeded for Shortness of breath / Wheezing ibuprofen (Advil) Oral, as needed Stop Taking the Following Medications: Medication list as of 06-08-14 12:11 Attention: If you have any medications at home that are not on this list, DO NOT take them until youcontact your provider for clarification. Give a copy of your medication list to your primary care provider. Update your medication list any time medications or doses are changed and carry your medication list at all times in case of emergency. Electronically Signed By: MANUELA BREWER PA-C Signed On:08-JUN-2014 12:11:53 Additional Information: [facility] Document Id: [id number] RED BRIDGE SPECIALIST Miscellaneous - Nieves Grullon R.N. 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 Sawing Machine Operator Intake/History Entered On: 06/08/2014 8:53 POWERED BRIDGE SPECIALIST Performed On: 06/08/2014 8:52 POWERED BRIDGE SPECIALIST by DAVEY GRULLON database development project manager Chief Complaint : #2 Supartz injection in left knee Height : 161 cm(Converted to: 5 ft 3 inch(es), 63 inch(es)) DAVEY GRULLON RN - 06/08/2014 8:52 POWERED BRIDGE SPECIALIST General Info Information Given By : Patient Languages : Czech Is Patient Female and 13-50 no hysterectomy : No DAVEY GRULLON RN - 06/08/2014 8:52 POWERED BRIDGE SPECIALIST Subjective Pain Symptoms : Yes DAVYE GRULLON RN - 06/08/2014 8:52 POWERED BRIDGE SPECIALIST Pain Scale Pain Scale Verbal 0-10 : Open DAVEY GRULLON RN - 06/08/2014 8:52 POWERED BRIDGE SPECIALIST Pain Pain Assessment Grid Pain 1 Location : Knee Laterality : Left Intensity : 4 DAVEY GRULLON RN - 06/08/2014 8:52 POWERED BRIDGE SPECIALIST Dependent Habits Tobacco Use/Currently Using : Yes Exposure to Tobacco Smoke : Patient smokes Smoking Status : Current every day smoker DAVEY GRULLON RN - 06/08/2014 8:52 POWERED BRIDGE SPECIALIST Tobacco Use Grid Type : Cigarettes Cigarette Use Packs/Day : 0.5 DAVEY GRULLON RN - 06/08/2014 8:52 POWERED BRIDGE SPECIALIST Caffeine Use Grid Caffeine Use : Current Type : Soft drinks Frequency : Daily DAVEY GRULLON RN - 06/08/2014 8:52 POWERED BRIDGE SPECIALIST Recreational Drug Use Grid Drug Use : None DAVEY GRULLON RN - 06/08/2014 8:52 POWERED BRIDGE SPECIALIST ID Screen Drug Resistant Organism : No Travel Within Last 21 Days : No DAVEY GRULLON RN - 06/08/2014 8:52 POWERED BRIDGE SPECIALIST Source: [facility] POWERCHART Document Id: [id number] POWERED BRIDGE SPECIALIST!37 RED BRIDGE SPECIALIST documented in this encounter Plan of Treatment Not on filedocumented as of this encounter Visit Diagnoses Not on filedocumented in this encounter
--- OUTSIDE RECORDS SUMMARY | 2022-01-29 10:53 | XMS_ITS | Encounter Summary ---
:1970 Author Organization [facility] Address [address] [place] [address] Care Team Providers Name Role Phone Elsewhere, Pcp Primary Care Provider Unavailable Encounter Details Date Type Department Care Team Description 07/23/2020 Orders Only [facility] PCP [facility] Sa je Trejo M.D. [address] [place], [place] [phone] (Wo rk) Social History Tobacco [...] on filedocumented in this encounter Care Teams Goring Cutter Relationship Specialty Start Date End Date Elsewhere, Pcp PCP - General Internal Medicine 11/26/19 documented as of this encounter
--- OUTSIDE RECORDS SUMMARY | 2022-01-29 10:53 | XMS_ITS | Encounter Summary ---
:1970 Author Organization [facility] Address [address] [place] [address] Care Team Providers Name Role Phone Unavailable Primary Care Provider Unavailable Encounter Details Date Type Department Care Team Description 08/01/[address] [facility] Willem Saeed APRN, C.N.P., D. N.P. [address] [place] [address] (Wo rk) Social History Tobacco Use Types Packs/Day Years Used Date Smoking Tobacco: Never Assessed Sex Assigned at Date Recorded Not on file documented as of this encounter Last Filed Vital Signs Vital Sign Reading Time Taken Comments Blood Pressure 144/78 08/01/2013 9:49 AM CDT Pulse 84 08/01/2013 9:49 AM CDT Temperature - - Respiratory Rate 18 08/01/2013 9:49 AM CDT Oxygen Saturation - - Inhaled Oxygen Concentration - - Weight 103 kg (227 lb 4.7 oz) 08/01/2013 9:49 AM CDT Height - - Body Mass Index 39.77 03/28/2013 8:16 AM OFFICE CLINICIAN documented in this encounter Medications at Time of Discharge Medication Sig Dispensed Refills Start Date End Date IBUPROFEN ORAL Take by mouth as needed. 0 011 documented as of this encounter Progress Notes Willem Saeed APRN, C.N.P. - 08/01/2013 9:39 AM CDT [id number] CHIEF COMPLAINT/REASON FOR VISIT Cystic skin lesions. HISTORY OF PRESENT ILLNESS Candy is a 43-year-old tobacco user who comes in today with recurrence of cystic lesions on her skin. She has had several years of having problems with this, mostly noted within her breasts, where she will get a hard lump. With hot pack sometimes it will drain, sometimes it will be significantly painful and she needs to have it excised. We have excised it in the past and obtained cultures back in March of 2013, in which it grew staphylococcus lugdunensis, which was treated appropriately with the antibiotic therapy, however patient states that she did not think the antibiotics actually really helped that much. She has now had these cysts reoccur. She has 1 on her right breast, 1 on her left breast, that neither of them will express. She has been warm packing them without any resolution. The 1on her left breast is quite tender. She also has a large flesh- colored cystic lesion on her left temporal area. She is very frustrated with these reoccurrence of cysts. She has no history of MRSA. She was treated in the past with Bactrim, and she really felt like it did not make that much difference. She also reports that she has a lesion in her vaginal area, but that is much improved. Next, a lesion, such as a cystic type lesion, but that is much improved. MEDICATIONS New reconciled medication, Levaquin 500 daily for 14 days. ALLERGIES Acetaminophen. Hydrocodone. Demerol. SYSTEMS REVIEW Patient denies any fevers or chills. She denies feeling overall ill at all. PAST MEDICAL/SURGICAL HISTORY Please see the EMR. PHYSICAL EXAMINATION VITAL SIGNS: Her blood pressure is a little elevated at 144/78. Her temperature is 36.5. GENERAL: Patient appears non-distressed. SKIN: Warm and dry. HEAD: Normocephalic. SKIN: She does have a lesion on her left temporal area that is cystic, although it is somewhat fleshy. On her left breast she has a 4 x 6 mm diameter redness with a large lump underneath. It appears too deep to actually sam the area. It does not express anything. It is tender to touch. Her right side, she has approximately a quarter size redness with a dime size lump underneath the area, consistentwith cystic lesions. Again, unable to express, nor feels too deep that I would not want to sam at this time. IMPRESSION/REPORT/PLAN Cystic skin lesions. These do keep recurring for patient. She is very frustrated with them. I would advise her to continue with heat packing at least 4 times daily, if not even a bit more, in hopes that they will open themselves. I did place her on Levaquin 500 mg by mouth daily. We did not sam, nordid we obtain cultures of anything, as we were unable to express anything. I would like to have her see Dermatology, per her request. We did talk about the importance of tobacco cessation, which patient has no interest in cessation at this time, and also I did discuss with her the need for laboratory studies, which would include a glucose, a CBC, BMP at some point. We did not order that, and she leftbefore we did. I am actually not real concerned that is necessary. We will have her see dermatology and then decide from there. PATIENT EDUCATION Ready to learn. No apparent learning barriers were identified. Learning preferences include listening. Explained diagnosis and treatment plan. Patient/Child/Caregiver expressed understanding of the content. Beverly HerzogNTung/mikey Electronically Signed By: WILLEM SAEED RN, CNP On: 08/19/2013 04:57 PM Source: [facility] MHSDOLBEYNONRADSYS Document Id: [id number] documented in this encounter Miscellaneous Notes Miscellaneous - Willem Saeed APRN, C.N.P. - 08/01/2013 10:41 AM CDT Ambulatory Patient Summary [id number] [place], [place] [phone] Visit Information Name: CANDY GRULLON [facility] Number: [id number] Current Date: 08/01/2013 10:41:01 Physicians Attending Provider: WILLEM SAEED RN, MEDICAL OR SURGICAL INSTRUMENT MAKER Primary Care Provider: WILLEM SAEED RN, MEDICAL OR SURGICAL INSTRUMENT MAKER CANDY GRULLON has been given the following [...] Indications/Special Instructions/Comments/Notes for Patient Medication Changes/Routing albuterol (Ventolin HFA 90 mcg/inh inhalation aerosol) 2 puff(s), Inhalation, as directed as needed for Shortness of breath / Wheezing ibuprofen (Advil) Oral, as needed levofloxacin (Levaquin 500 mg oral tablet) 1 Tablet(s), Oral, once a day x 14 day(s) New Routed to [address] [id number] Stop Taking the Following Medications: Medication list as of 08-01-13 10:41 Attention: If you have any medications at home that are not on this list, DO NOT take them until youcontact your provider for clarification. Give a copy of your medication list to your primary care provider. Update your medication list any time medications or doses are changed and carry your medication list at all times in case of emergency. Electronically Signed By: WILLEM SAEED RN, MEDICAL OR SURGICAL INSTRUMENT MAKER Signed On:01-AUG-2013 10:40:53 Your Allergies & Intolerances Substance Reaction Symptoms Category Comments Demerol HCl nausea Drug acetaminophen-HYDROcodone vomiting Drug Your Problem List Problem Status Onset Comments Nicotine dependence Active 1982 05/31/11 date of onset unknown Throat Pain Active 06/27/2012 Boil of skin and subcutaneous tissue NOS Active 03/28/2013 Your Upcoming Appointments Date Time Location Reason Provider No Appointments found Attention: Contact your local Clinic if further appointment detail needed. Your Goals/Additional instructions: Source: [facility] POWERCHART Document Id: [id number] Miscellaneous - Willem Saeed APRN, C.N.P. - 08/01/2013 10:40 AM CDT Ambulatory Discharge Medication List [address] [place], [place] [phone] Visit Information Name: CANDY GRULLON [facility] Number: [id number] Visit Date: 08/01/2013 10:40:58 Attending Provider: WILLEM SAEED RN, KEEGAN Primary Care Provider: WILLEM SAEED RN, KEEGAN CANDY GRULLON has been given the following list of medications: Your Medications It is important to take your medications as directed. Use a pill box or chart to help remind you to take your medications. Please let your doctor or nurse know if you have problems taking your medications. Medication/Strength How to Take Indications/Special Instructions/Comments/Notes for Patient Medication Changes/Routing albuterol (Ventolin HFA 90 mcg/inh inhalation aerosol) 2 puff(s), Inhalation, as directed as needed for Shortness of breath / Wheezing ibuprofen (Advil) Oral, as needed levofloxacin (Levaquin 500 mg oral tablet) 1 Tablet(s), Oral, once a day x 14 day(s) New Routed to [address] [id number] Stop Taking the Following Medications: Medication list as of 08-01-13 10:40 Attention: If you have any medications at home that are not on this list, DO NOT take them until youcontact your provider for clarification. Give a copy of your medication list to your primary care provider. Update your medication list any time medications or doses are changed and carry your medication list at all times in case of emergency. Electronically Signed By: WILLEM SAEED RN, MEDICAL OR SURGICAL INSTRUMENT MAKER Signed On:01-AUG-2013 10:40:53 Additional Information: Source: [facility] POWERCHART Document Id: [id number] Miscellaneous - Johnnie Sher L.PCarineN. 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 left cheek, 2 on right breast, 2 on left breast. Painful Temperature Core : 36.5 DegC(Converted to: 97.7 DegF) Peripheral Pulse Rate : 84 /min Respiratory Rate : 18 /min Systolic Blood Pressure : 144 mmHg (HI) Diastolic Blood Pressure : 78 mmHg NIBP Mean : 100 mmHg BP Location : Right upper extremity Blood Pressure Cuff Size : Large SpO2 : 98 % Oxygen Therapy : Room air Actual Weight : 103.1 kg(Converted to: 227 lb 5 oz) Weight Source : Standing scale Dosing Weight Clinic : 103.1 kg JOHNNIE SHER LPN - 08/01/2013 9:49 CDT General Info Information Given By : Patient Preferred Communication Mode : Verbal Languages : Namibian JOHNNIE SHER LPN - 08/01/2013 9:49 CDT Subjective Pain Symptoms : Yes JOHNNIE SHER LPN - 08/01/2013 9:49 CDT Pain Pain Assessment Grid Pain 1 Location : Breast Laterality : Bilateral [facility]NNIE SHER [facility] - 08/01/2013 9:49 CDT Dependent Habits Tobacco Use/Currently Using : Yes Exposure to Tobacco Smoke : Patient smokes Smoking Status : Current every day smoker JOHNNIE SHER [facility] - 08/01/2013 9:49 CDT Tobacco Use Grid Type : Cigarettes Cigarette Use Packs/Day : 0.5 JOHNNIE SHER [facility] - 08/01/2013 9:49 CDT Alcohol Use : Yes JOHNNIE SHER [facility] - 08/01/2013 9:49 CDT Caffeine Use Grid Caffeine Use : Current Type : Soft drinks Frequency : Daily JOHNNIE SHER LPN - 08/01/2013 9:49 CDT Recreational Drug Use Grid Drug Use : None JOHNNIE SHER LPN - 08/01/2013 9:49 CDT Source: [employer] Document Id: [id number] CDT!44 documented in this encounter Plan of Treatment Not on filedocumented as of this encounter Visit Diagnoses Not on filedocumented in this encounter
--- OUTSIDE RECORDS SUMMARY | 2022-01-29 10:53 | XMS_ITS | Encounter Summary ---
:1970 Author Organization [facility] Address [address] [place] [address] Care Team Providers Name Role Phone Mily Contreras APRN, C.N.P., D.N.P. Primary Care Provider Encounter Details Date Type Department Care Team Description 06/24/2018 Hospital Encounter Department of Liang Llamas; Radiology, [facility], Epicondylit is Medial Left; Building, in [facility] Epicondylitis Lateral Right [place], [place] [address] [place] [phone] Social History Tobacco Use Types Packs/Day Years [...] 0 011 documented as of this encounter Plan of Treatment Not on filedocumented as of this encounter Procedures Procedure Name Priority Date/Time Associated Comments Diagnosis DX ELBOW RAD - Routine 06/24/2018 10:15 Polyarthritis Results for this BILATERAL 2 VIEWS (most inpatients AM M48 M60 ARMOR CREWMAN Epicondylitis proce dure are in and all Medial Left the results outpatients) Epicondylitis section. Lateral Right DX HAND BILATERAL RAD - Routine 06/24/2018 10:15 Polyarthritis Results for this 3 VIEWS (most inpatients AM M48 M60 ARMOR CREWMAN Epicondylitis procedure are in and all Medial Left the results outpatients) Epicondylitis section. Lateral Right documented in this encounter Results DX Elbow Bilateral 2 Views (06/24/2018 10:15 AM M48 M60 ARMOR CREWMAN) Anatomical Region Laterality Modality Upper Extremity, Elbow, Musculoskeletal RST LOS, Bilateral Digital Radiography Musculoskeletal ARZ LOS, Muskuloskeletal FLA LOS Specimen (Source) Anatomical Collection Method Collection Time Re ceived Time Location / / Volume Laterality 06/24/2018 10:25 AM M48 M60 ARMOR CREWMAN Impressions 06/24/2018 10:27 AM M48 M60 ARMOR CREWMAN IMPRESSION: ??Heterotopic ossification adjacent to the medial and lateral epicondyles bilaterally. Medial hypertro phic changes right elbow. No joint effusions or periarticular erosion. Narrative 06/24/2018 10:27 AM M48 M60 ARMOR CREWMAN EXAM: ??DX ELBOW BILATERAL 2 VIEWS Procedure Note Fay Baptiste M.D. - 06/24/2018For matting of this note might be different from the original. EXAM: DX ELBOW BILATERAL 2 VIEWS IMPRESSION: Heterotopic ossification adj acent to the medial and lateral epicondyles bilaterally. Medial hypertro phic changes right elbow. No joint effusions or periarticular erosion. Destiney Peña IM DIAGNOSTIC IMAGING PROCE [facility] DX Hand Bilateral 3 Views (06/24/2018 10:15 AM M48 M60 ARMOR CREWMAN) Anatomical Region Laterality Modality Upper Extremity, Hand, Musculoskeletal RST LOS, Bilateral Digital Radiography Musculoskeletal ARZ LOS, Muskuloskeletal FLA LOS Specimen (Source) Anatomical Collection Method Collection Time Re ceived Time Location / / Volume Laterality 06/24/2018 10:24 AM M48 M60 ARMOR CREWMAN Impressions 06/24/2018 10:25 AM M48 M60 ARMOR CREWMAN IMPRESSION: ??Mild scattered degenerative changes, greatest at the DIP joints. No periarticular erosions. Mild soft tissue swelling over the MCP joints. Narrative 06/24/2018 10:25 AM M48 M60 ARMOR CREWMAN EXAM: ??DX HAND BILATERAL 3 VIEWS Procedure Note Fay Baptiste M.D. - 06/24/2018For matting of this note might be different from the original. EXAM: DX HAND BILATERAL 3 VIEWS IMPRESSION: Mild scattered degenerative changes, greatest at the DIP joints. No periarticular erosions. Mild soft tissue swelling over the MCP joints. Destiney Peña IMG DIAGNOSTIC IMAGING PROCE [facility] documented in this encounter Visit Diagnoses Diagnosis Polyarthritis Epicondylitis Medial Left Epicondylitis Lateral Right documented in this encounter Care Teams Orthotic Practitioner Relationship Specialty Start Date End Date Mily Contreras APRN C.N.P., PCP - General Family Medicine 03/22/19 D.N.P. [address] [place] [phone] documented as of this encounter
--- OUTSIDE RECORDS SUMMARY | 2022-01-29 10:53 | XMS_ITS | Encounter Summary ---
:1970 Author Organization [facility] Address [address] [place] [address] Care Team Providers Name Role Phone Mily Contreras APRN, C.N.P., D.N.P. Primary Care Provider Encounter Details Date Type Department Care Team Description 06/27/2018 Orders Only Division of Rheumatology in [place], [place] [facility] [address] [facility] [address] [place] [phone] [place], [place] [phone] (Wo rk) Social History Tobacco Use Types [...] on filedocumented in this encounter Care Teams Drug And Alcohol Counsellor Relationship Specialty Start Date End Date Mily Contreras APRN, C.N.P., PCP - General Family Medicine 03/22/19 D.N.P. [address] [place] [phone] documented as of this encounter
--- OUTSIDE RECORDS SUMMARY | 2022-01-29 10:53 | XMS_ITS | Encounter Summary ---
:1970 Author Organization [facility] Address [address] [place] [address] Care Team Providers Name Role Phone Unavailable Primary Care Provider Unavailable Encounter Details Date Type Department Care Team Description 06/21/2015 Hospital Encounter HX [facility] Otilia Johnson, ANDROID PLATFORM DEVELOPER, C.N.P. [address] [place], [place] [address] (Wo rk) Social History Tobacco Use Types Packs/Day Years Used Date Smoking Tobacco: Never Assessed Sex Assigned at Date Recorded Not on file documented as of this encounter Last Filed Vital Signs Vital Sign Reading Time Taken Comments Blood Pressure 135/79 06/21/2015 1:30 PM SMALL ENGINE TECHNICIAN Pulse 75 06/21/2015 1:30 PM SMALL ENGINE TECHNICIAN Temperature - - Respiratory Rate - - Oxygen Saturation - - Inhaled Oxygen Concentration - - Weight - - Height 162 cm (5' 3.78) 06/21/2015 1:30 PM SMALL ENGINE TECHNICIAN Body Mass Index - - documented in this encounter Medications at Time of Discharge Medication Sig Dispensed Refills Start Date End Date IBUPROFEN ORAL Take by mouth as needed. 0 011 documented as of this encounter Progress Notes Isabelle Johnson, R.N. - 06/21/2015 1:16 PM CST [id number] CHIEF COMPLAINT/REASON FOR VISIT Breast pain. HISTORY OF PRESENT ILLNESS Candy is a very pleasant 44-year-old female who comes into the clinic today with concerns related to a cystic lesion on her left breast. She reports a significant history of sebaceous cysts on her bilateral breasts. She reports the cysts appear intermittently and do eventually open and drain independently. She reports the cyst on her left breast did open approximately 3 days ago and has been draining sanguineous fluid and greenish drainage. She reports the diameter around the cyst is very painfulto touch and she reports her left breast hurts when she lifts her left arm above her head. She denies any concerns with her right breast. She denies any known fevers or chills. She reports a smelly vinegar discharge from her left breast. She is here today for further evaluation. She has no other concerns today. MEDICATIONS Reviewed and reconciled. New medication today: Keflex 250 mg 1 capsule 4 times per day x10 days. ALLERGIES Acetaminophen-hydrochlorothiazide and Demerol HCl. PAST MEDICAL/SURGICAL HISTORY PAST MEDICAL HISTORY: Reviewed and unchanged. PAST SURGICAL HISTORY: Reviewed and unchanged. SOCIAL HISTORY Candy is a current tobacco user. Her current tobacco use is less than 20 cigarettes per day. She uses alcohol socially. SYSTEMS REVIEW As per HPI. She denies heart palpitations, chest pain, or shortness of breath. She denies headaches or dizziness. She denies headaches or dizziness. She denies increased fatigue. VITAL SIGNS Temperature 36.1, heart rate 75, blood pressure 135/79, oxygen saturation 99% on room air. PHYSICAL EXAMINATION GENERAL: Alert and oriented. No acute distress. HEAD: Normocephalic/atraumatic. SKIN: Right breast unremarkable. Left breast with a 1.5 to 2 cm ulcer like lesion appreciable distally to left nipple. Erythema appreciable around diameter of lesion. Mild tenderness to palpation around lesion border. No drainage appreciable. Wound bed with infectious process appreciable. IMPRESSION/REPORT/PLAN Breast cellulitis. PLAN: I prescribed Keflex 250 mg 1 capsule 4 times per day x10 days. I instructed her to use warm compresses as well as hzpi-eph-geesroo pain analgesics for symptom management. She was instructed to follow up in primary care with worsening or no improvement in symptoms. All questions were answered. She left in no acute distress. Ready to learn. No apparent learning barriers were identified. Learning preferences include listening. Explained diagnosis and treatment plan. Patient/Child/Caregiver expressed understanding of the content. Isabelle Johnson N.Gabriella./mikey Electronically Signed By: ISABELLE JOHNSON NP On: 06/27/2015 07:58 PM Modified by and Electronically Signed by: ISABELLE JOHNSON GAS TREATER On: 06/27/2015 07:58 PM Source: [facility] MHSDOLBEYNONRADSYS Document Id: [id number] L ENGINE TECHNICIAN documented in this encounter Miscellaneous Notes Miscellaneous - Juju Nickersonh Susan - 12/01/2016 10:43 AM CDT Health Maintenance Reminder December 01, 2016 CANDY GRULLON [address] [address] [place] [phone] Dear CANDY GRULLON, We have developed a six-month overview of preventive and recommended services that apply to your unique health care needs. Some may be past due or may be coming due in the next three months. If youhave already scheduled any or all of these services, thank you. We recognize that this may or may not include all of your individualized health care needs; however, we are happy to help you with any and all primary care concerns you may have. Past Due Diabetes Screening: recommended preventive service starting at age 18 Fasting Lipid Panel: recommended preventive service starting at age 35 Mammogram for Breast Cancer Screening It may be possible to bundle some of the above services together to make your visit with us more convenient. Please call [phone] to schedule services that are past due or that may shortly become due (thank you if you have already done so). We will follow up in three to six months should you have more services to schedule at that time. If you have already received any of the listed past due or upcoming services outside of [facility], please call [phone] to add them to your medical record. You may want to consider contacting your health insurance company to make sure these services are covered and find out if there will be any [id number] expense. If you have any questions about the services listed above, or if you are no longer receiving care from [facility], please contact us at [phone]. Thank you for partnering to provide you with the best care possible. We encourage you to set up your Patient Online Services account [email or web address], where you can communicate in a convenient way with us, schedule appointments, receive lab results and more. To set up your account, you will need your [facility] Number, which is [phone]. Thank you for choosing the Isabelle Johnson C.N.P., R.N. care team for your health care needs! You are receiving this notice based on [facility]'s recommended standard for preventive care and ongoing condition-specific services you may need. If you have completed or do not believe you need these services, please contact your provider or care team to discuss this further. Sincerely, KIANNA NICKERSON Electronic Signature Electronically Signed By: KIANNA NICKERSON On: December 01, 2016 This document has images extracted. Source: [facility] [employer] Document Id: [id number] Isabelle Ricardo R.N. - 06/21/2015 2:14 PM CST Work Excuse 21 June 2015 CANDY GRULLON [address] [place] [phone] Dear CANDY GRULLON, You were examined in my office on:06/21/15 Reason for work excuse: Medical Illness ( X ) Yes ( _ ) No Injury ( _ ) Yes ( _ ) No Is excused from all work: ( X ) Yes ( _ ) No Has work limitations: ( _ ) Yes ( X ) No As follows: _ Limitations apply until: _ Follow-Up Appointment :As needed Return to Work date:June 24, 2015 Notes: _ Sincerely, ISABELLE JOHNSON [address] [place] [address] Electronic Signature Electronically Signed By: ISABELLE JOHNSON GAS TREATER On: 21 June 2015 This document has images extracted. Source: [facility] [employer] Document Id: [id number] Electronically signed by Maryann [facility] Construction Carpenters Helper [id number] at 09/16/2016 8:18 AM CDT Isabelle Ricardo R.N. - 06/21/2015 2:13 PM CST Ambulatory Patient Summary [address] [place], [place] [id number] Visit Information Name: CANDY GRULLON [facility] Number: [id number] Current Date: 06/21/2015 14:13:02 Physicians Attending Provider: ISABELLE JOHNSON NP Primary Care Provider: ISABELLE JOHNSON NP CANDY GRULLON has been given the following [...] Take Indications/Special Instructions/Comments/Notes for Patient Medication Changes/Routing cephalexin (Keflex 250 mg oral capsule) 1 cap, Oral, four times a day x 10 day(s) New Routed to [address] [address] ibuprofen (Advil) Oral, as needed Stop Taking the Following Medications: Medication list as of 06-21-15 14:13 Attention: If you have any medications at home that are not on this list, DO NOT take them until youcontact your provider for clarification. Give a copy of your medication list to your primary care provider. Update your medication list any time medications or doses are changed and carry your medication list at all times in case of emergency. Electronically Signed By: ISABELLE JOHNSON NP Signed On:21-JUN-2015 14:12:47 Your Allergies & Intolerances Substance Reaction Symptoms Category Comments Demerol HCl nausea Drug acetaminophen-HYDROcodone vomiting Drug Your Problem List Problem Status Onset Comments Nicotine dependence Active 1982 05/31/11 date of onset unknown Throat Pain Active 06/27/2012 Boil of skin and subcutaneous tissue NOS Active 03/28/2013 Your Upcoming Appointments Date Time Location Provider No Appointments found Attention: Contact your local Clinic if further appointment detail needed. Consider Using Patient Online Services Patient Online Services is a secure online and Mobile application that lets you: ?? View lab and test results ?? View portions of your medical record including clinical notes, immunizations and discharge summaries ?? Request an appointment or medication refill ?? Review your appointment schedule ?? Send secure messages to your care team Its easy to create an account if you dont have one. Go to [email or web address] and click on Create Your Account. Then, follow the directions to complete the online form. Youll be asked for your [facility] number which you can find at the top of this document. Your Goals/Additional instructions: Source: [facility] POWERCHART Document Id: [id number] L ENGINE TECHNICIAN Miscellaneous - Isabelle Johnson R.N. - 06/21/2015 2:13 PM CST Ambulatory Discharge Medication List [address] [id number] Visit Information Name: CANDY GRULLON [facility] Number: [id number] Visit Date: 06/21/2015 14:13:00 Attending Provider: ISABELLE JOHNSON GAS TREATER Primary Care Provider: ISABELLE JOHNSON GAS TREATER CANDY GRULLON has been given the following list of medications: Your Medications It is important to take your medications as directed. Use a pill box or chart to help remind you to take your medications. Please let your doctor or nurse know if you have problems taking your medications. Medication/Strength How to Take Indications/Special Instructions/Comments/Notes for Patient Medication Changes/Routing cephalexin (Keflex 250 mg oral capsule) 1 cap, Oral, four times a day x 10 day(s) New Routed to [facility] [address] [address] ibuprofen (Advil) Oral, as needed Stop Taking the Following Medications: Medication list as of 06-21-15 14:13 Attention: If you have any medications at home that are not on this list, DO NOT take them until youcontact your provider for clarification. Give a copy of your medication list to your primary care provider. Update your medication list any time medications or doses are changed and carry your medication list at all times in case of emergency. Electronically Signed By: ISABELLE JOHNSON GAS TREATER Signed On:21-JUN-2015 14:12:47 Additional Information: Source: [facility] POWERCHART Document Id: [id number] L ENGINE TECHNICIAN Miscellaneous - Kb Rod L.P.N. - 06/21/2015 1:30 PM CST Adult Bearing Ring Assembler Intake/History Adult Bearing Ring Assembler Intake/History Entered On: 06/21/2015 13:35 SMALL ENGINE TECHNICIAN Performed On: 06/21/2015 13:30 SMALL ENGINE TECHNICIAN by KB ROD Intake Chief Complaint : Long standing h/o júnior cystic lesions on left breast. Has had them over the years. This one presented 2 mo ago. Did open and start draining on 06/18. Painful, red, smelly vinegar smell, green drainage. Since opening is improving on it's own. Ambulatory Intake Additional Information : Has had them on the right side lanced as well in the past. Temperature Core : 36.1 DegC(Converted to: 97.0 DegF) (LOW) Peripheral Pulse Rate : 75 /min Systolic Blood Pressure : 135 mmHg Diastolic Blood Pressure : 79 mmHg NIBP Mean : 98 mmHg BP Location : Left upper extremity Blood Pressure Cuff Size : Large SpO2 : 99 % Oxygen Therapy : Room air Height : 162 cm(Converted to: 5 ft 4 inch(es), 64 inch(es)) KB ROD - 06/21/2015 13:30 SMALL ENGINE TECHNICIAN General Info Information Given By : Patient Languages : Macedonian Is Patient Female and 13-50 no hysterectomy : No KB ROD - 06/21/2015 13:30 SMALL ENGINE TECHNICIAN Subjective Pain Symptoms : Yes KB ROD - 06/21/2015 13:30 SMALL ENGINE TECHNICIAN Pain Scale Pain Scale Verbal 0-10 : Open KB ROD - 06/21/2015 13:30 SMALL ENGINE TECHNICIAN Pain Pain Assessment Grid Pain 1 Location : Breast Laterality : Left Intensity : 5 KB ROD - 06/21/2015 13:30 SMALL ENGINE TECHNICIAN Dependent Habits Exposure to Tobacco Smoke : Patient smokes Smoking Status : Current every day smoker Tobacco 2A : Yes Tobacco Use/Currently Using : Yes Tobacco Use/Last 30 Days : Yes Tobacco Use/Last 12 months : Yes Type : Cigarettes: Less than 20 per day Tobacco Use/Advised to Quit : Yes Alcohol Use : Yes KB ROD - 06/21/2015 13:30 SMALL ENGINE TECHNICIAN Caffeine Use Grid Caffeine Use : Current Type : Soft drinks Frequency : Daily KB ROD - 06/21/2015 13:30 SMALL ENGINE TECHNICIAN Recreational Drug Use Grid Drug Use : None KB ROD - 06/21/2015 13:30 SMALL ENGINE TECHNICIAN Source: [facility] [employer] Document Id: [id number] SMALL ENGINE TECHNICIAN!46 L ENGINE TECHNICIAN documented in this encounter Plan of Treatment Not on filedocumented as of this encounter Visit Diagnoses Not on filedocumented in this encounter
--- OUTSIDE RECORDS SUMMARY | 2022-01-29 10:53 | XMS_ITS | Encounter Summary ---
:1970 Author Organization [facility] Address [address] [place] [address] Care Team Providers Name Role Phone Isabelle Henderson APRN, C.N.P. Primary Care Provider [phone] Encounter Details Date Type Department Care Team Description 02/20/2017 Orders Only Department of Family Isabelle Henderson Scr eening Examination Diabetes Mellitus; Medicine, Chuy Ascencio APRN, C.N.P. General Medical Examination Adult Clinic, in [address] [phone] [place], [place] (Work) [phone] [phone] Social History Tobacco Use Types Packs/Day Years Used Date Smoking Tobacco: Every Day Sex Assigned at Date Recorded Not on file documented as of this encounter Plan of Treatment Not on filedocumented as of this encounter Visit Diagnoses Diagnosis Screening Examination Diabetes Mellitus General Medical Examination Adult documented in this encounter Care Teams Community Health Representative Relationship Specialty Start Date End Date Isabelle Henderson APRN, C.N.P. PCP - General 10/05/16 08/17/17 documented as of this encounter
--- OUTSIDE RECORDS SUMMARY | 2022-01-29 10:53 | XMS_ITS | Encounter Summary ---
:1970 Author Organization [facility] Address [address] [place] [address] Care Team Providers Name Role Phone Mily Contreras APRN, C.N.P., D.N.P. Primary Care Provider Reason for Visit Outpatient (Routine) - Closed Specialty Diagnoses / Procedures Referred By Contact Refer red To Contact Diagnoses Primary Osteoarthritis Elbow Left Destiney Llamas M[facility] Procedures NM Joint Scan MI BONE/JOINT IMAGING MULT AREAS HC BONE/JOINT IMAGING MULT AREAS MI BONE/JOINT IMAGING MULT AREAS [address] [place] [phone] Referral ID Status Reason Start Date Expiration Date Visits Requ ested Visits Authorized [id number] Closed 06/26/2018 06/26/2019 6 6 Encounter Details Date Type Department Care Team Description 06/27/2018 Hospital Encounter Department of [place]iology[place] [address] [place] [address] [place] [phone] Social History Tobacco Use Types Packs/Day Years [...] encounter Procedures Procedure Name Priority Date/Time Associated Diagnosis Comme nts NM JOINT SCAN RAD - Routine 06/27/2018 11:59 Primary Results f or this (most inpatients AM LIFE SKILLS EDUCATOR Osteoarthritis Elbow pro cedure are in and all Left the results outpatients) section. documented in this encounter Visit Diagnoses Not on filedocumented in this encounter Administered Medications Inactive Administered Medications - up to 3 most recent administrations Medication Order MAR Action Action Date Dose Rate Site potassium perchlorate solution Given 06/27/2018 11:00 AM LIFE SKILLS EDUCATOR 200 mg 200 mg 200 mg, oral, Once, On Alisha 06/27/18 at 1130, For 1 dose documented in this encounter Care Teams Office Equipment Mechanic Relationship Specialty Start Date End Date Mily Contreras APRN, C.N.P., PCP - General Family Medicine 03/22/19 D.N.P. [address] [place] [phone] documented as of this encounter
--- OUTSIDE RECORDS SUMMARY | 2022-01-29 10:53 | XMS_ITS | Encounter Summary ---
:1970 Author Organization [facility] Address [address] [place] [address] Care Team Providers Name Role Phone Unavailable Primary Care Provider Unavailable Encounter Details Date Type Department Care Team Description 12/24/2013 Hospital Encounter [facility] Kenneth Merino M.D. [address] [place] [phone] (Wo rk) Social History Tobacco Use Types Packs/Day Years Used Date Smoking Tobacco: Never Assessed Sex Assigned at Date Recorded Not on file documented as of this encounter Last Filed Vital Signs Vital Sign Reading Time Taken Comments Blood Pressure 128/80 12/24/2013 9:18 AM CDT Pulse 72 12/24/2013 9:18 AM CDT Temperature - - Respiratory Rate - - Oxygen Saturation - - Inhaled Oxygen Concentration - - Weight 101 kg (223 lb 5.2 oz) 12/24/2013 9:18 AM CDT Height 161 cm (5' 3.39) 12/24/2013 9:18 AM CDT Body Mass Index 39.08 12/24/2013 9:18 AM CDT documented in this encounter Medications at Time of Discharge Medication Sig Dispensed Refills Start Date End Date IBUPROFEN ORAL Take by mouth as needed. 0 011 documented as of this encounter Progress Notes Kenneth Merino M.D. - 12/24/2013 9:03 AM CDT [id number] A 43-year-old female postsurgical menopause age 24. No current hormone replacement therapy. No history of cystic or scarring acne as a young adult or teen and is here today for evaluation of a cystic lesion on her right cheek. She says it has been present for a little more than a month. It is growing in size, people are starting to give her a hard time about it and she would like it removed. PHYSICAL EXAMINATION GENERAL: She is a comfortable appearing, non-distressed female. VITAL SIGNS: Normotensive. Afebrile. SKIN: There is some mild acne scarring noted on the cheeks. On the right cheek there is a soft raised 3 mm nodule. On palpation of the inner cheek there is no evidence of nodularity. The nodule on the outer cheek is somewhat fluctuant. There is no central pore.It does not appear to move well and otherwise appears fixed. There is no adenopathy of the neck. IMPRESSION/REPORT/PLAN Cystic lesion of the cheek. This appears to be more of a cystic acne lesion than an actual sebaceouscyst. It does not appear to have any underlying malignant tendency per my examination. I recommendedthe following. I would prefer not to do incision and drainage in the cheek at this time. I will recommend a 2-week course of doxycycline. If the lesion persists, may return to clinic to see myself for incision and drainage of the lesion which she understands could leave infection and/or scar, or she could be seen by Dr. Kia Gutierrez for a 2nd opinion, and I have put a referral in computer for her. She will notify our clinic in 2 weeks if she would like to be seen for excision. Kenneth Merino M.D./mikey Electronically Signed By: KENNETH MERINO MD On: 12/24/2013 11:59 AM Source: [facility] MHSDOLBEYNONRADSYS Document Id: [id number] documented in this encounter Miscellaneous Notes Miscellaneous - Reji Donaldson L.P.N. - 12/24/2013 9:18 AM CDT Adult Tracing Lathe Set Up Operator Intake/History Adult Tracing Lathe Set Up Operator Intake/History Entered On: 12/24/2013 9:20 CDT Performed On: 12/24/2013 9:18 CDT by REJI DONALDSON LPN Intake Chief Complaint : cyst on R side of face for months, now painful Temperature Core : 36.5 DegC(Converted to: 97.7 DegF) Peripheral Pulse Rate : 72 /min Systolic Blood Pressure : 128 mmHg Diastolic Blood Pressure : 80 mmHg NIBP Mean : 96 mmHg Height : 161 cm(Converted to: 5 ft 3 inch(es), 63 inch(es)) Actual Weight : 101.3 kg(Converted to: 223 lb 5 oz) Weight Source : Standing scale Dosing Weight Clinic : 101.3 kg Clinic BSA : 2.13 Body Mass Index : 39.08 kg/m2 REJI DONALDSON LPN - 12/24/2013 9:18 CDT General Info Information Given By : Patient Languages : Danish Is Patient Female and 13-50 no hysterectomy : No REJI DONALDSON LPN - 12/24/2013 9:18 CDT Subjective Pain Symptoms : Yes REJI DONALDSON LPN - 12/24/2013 9:18 CDT Pain Pain Assessment Grid Pain 1 Location : Head Intensity : 3 REJI DONALDSON LPN - 12/24/2013 9:18 CDT Dependent Habits Tobacco Use/Currently Using : Yes Exposure to Tobacco Smoke : Patient smokes Smoking Status : Current every day smoker REJI DONALDSON LPN - 12/24/2013 9:18 CDT Tobacco Use Grid Type : Cigarettes Cigarette Use Packs/Day : 0.5 REJI DONALDSON LPN - 12/24/2013 9:18 CDT Alcohol Use : Yes REJI DONALDSON LPN - 12/24/2013 9:18 CDT Caffeine Use Grid Caffeine Use : Current Type : Soft drinks Frequency : Daily REJI DONALDSON LPN - 12/24/2013 9:18 CDT Recreational Drug Use Grid Drug Use : None REJI DONALDSON LPN - 12/24/2013 9:18 CDT Source: [facility] Document Id: [id number] CDT!42 documented in this encounter Plan of Treatment Not on filedocumented as of this encounter Visit Diagnoses Not on filedocumented in this encounter
--- OUTSIDE RECORDS SUMMARY | 2022-01-29 10:53 | XMS_ITS | Encounter Summary ---
:1970 Author Organization [facility] Address [address] [place] [address] Care Team Providers Name Role Phone Unavailable Primary Care Provider Unavailable Encounter Details Date Type Department Care Team Description 02/04/2014 Hospital Encounter HX [facility] Geri Holt M.D. [address] [place] [address] (Wo rk) Social History Tobacco Use Types Packs/Day Years Used Date Smoking Tobacco: Never Assessed Sex Assigned at Date Recorded Not on file documented as of this encounter Last Filed Vital Signs Vital Sign Reading Time Taken Comments Blood Pressure 138/82 02/04/2014 9:23 AM CDT Pulse 66 02/04/2014 9:23 AM CDT Temperature - - Respiratory Rate - - Oxygen Saturation - - Inhaled Oxygen Concentration - - Weight 101 kg (222 lb 10.6 oz) 02/04/2014 9:23 AM CDT Height 161 cm (5' 3.39) 02/04/2014 9:23 AM CDT Body Mass Index 38.96 02/04/2014 9:23 AM CDT documented in this encounter Medications at Time of Discharge Medication Sig Dispensed Refills Start Date End Date IBUPROFEN ORAL Take by mouth as needed. 0 011 documented as of this encounter Progress Notes Geri Holt M.D. - 02/04/2014 9:54 AM CDT Clinic Progress Note Consolidated CHIEF COMPLAINT/REASON FOR VISIT Sinus symptoms since sunday HISTORY OF PRESENT ILLNESS: This patient is presenting with a cough. It has been present for a week. It is described as a coughwith yellow sputu. It is of a moderate intensity. Associated symptoms: [_] wheezing [_] shortness of breath [_] hemoptysis [X] fevers [_] chills [_] sweats [_] fatigue/malaise [X] sinus congestion MEDICATIONS Advil, PO, PRN albuterol CFC free 90 mcg/inh inhalation aerosol, 2 puff(s), Inhalation, q4hr, PRN, 11 refills Zithromax Z-Luis 250 mg oral tablet, 2 tablets on day 1, then 1 tablet on days 2-5, PO, As Directed,1 refills ALLERGIES acetaminophen-HYDROcodone (vomiting) Demerol HCl (nausea) PAST MEDICAL HISTORY Chronic Nicotine dependence Historical No historical problems PROCEDURES/SURGICAL HISTORY Arthroscopy of knee (03/19/2012), Cataract extraction and insertion of intraocular lens (08/09/2011), HC REMV CATARACT EXTRACAP,INSERT LENS - 08/09/11 - LT (08/09/2011), Mammogram (11/21/2010), Breast lumpectomy (2005), Hysterectomy and bilateral salpingo-oophorectomy sample (1994). SOCIAL HISTORY Date Time: 02/04/2014 09:23 Tobacco: Smoking Status: Current every day smoker Exposure: Patient smokes Alcohol: Use: No Results Found Recreational Drugs: Use: None Type: No Results Found FAMILY HISTORY Mother:Positive: Bipolar disorder; Depression Father:Positive: Maria De Jesus Gehrig's disease Grandfather:Positive: Bone; CA - Lung cancer; Heart attack SYSTEMS REVIEW GENERAL: No weight loss, no weight gain, no fatigue, no fevers chills or sweats. PULMONARY: as noted above. CARDIOVASCULAR: No chest pain, no exertional chest pain, no tachycardia, no irregular heartbeat, noclaudication symptoms. GI: No abdominal pain, no heartburn, no nausea, no vomiting, no constipation, no diarrhea, no melena, no hematochezia. NEUROLOGIC: No slurred speech, no seizures, no dizziness, no loss of consciousness, no localized numbness tingling or weakness. VITAL SIGNS Temperature Core: 36.6 DegC Peripheral Pulse Rate: 66 /min BLOOD PRESSURE Systolic Blood Pressure: 138 mmHg Diastolic Blood Pressure: 82 mmHg MEASUREMENTS Height: 161 cm Actual Weight: 101 kg Body Mass Index: 38.96 kg/m2 PHYSICAL EXAMINATION GENERAL: Patient is alert and oriented and in no distress. EYES: Normal lids and conjunctiva, pupils equal. EARS: Supple. No adenopathy. Normal thyroid. THROAT: Mild posterior pharynx erythema. No exudate. NOSE: Purulent rhinorrhea present, sinus tenderness present. HEART: Regular rate and rhythm. No murmurs, gallops or rubs noted. LUNGS: Clear to auscultation bilaterally. No expiratory wheeze. No accessary muscles of respirationnoted. NEURO: Cranial nerves intact. Moves all extremities well. No focal deficits. IMPRESSION/REPORT/PLAN 1. Bronchitis NOS Ordered: albuterol, 2 puff(s), Inhalation, q4hr, PRN Shortness of breath / Wheezing, # 18 gm, 11 Refill(s), Maintenance, Pharmacy: [facility] azithromycin, 2 tablets on day 1, then 1 tablet on days 2-5, PO, As Directed, x 5 day(s), # 6 tab(s), 1 Refill(s), Acute, Pharmacy: [facility] 2. Sinusitis NOS Ordered: albuterol, 2 puff(s), Inhalation, q4hr, PRN Shortness of breath / Wheezing, # 18 gm, 11 Refill(s), Maintenance, Pharmacy: [facility] azithromycin, 2 tablets on day 1, then 1 tablet on days 2-5, PO, As Directed, x 5 day(s), # 6 tab(s), 1 Refill(s), Acute, Pharmacy: [facility] Electronically Signed By: GERI HOLT MD On: 02/04/2014 09:58 AM Source: [facility] POWERCHART Document Id: [id number] documented in this encounter Nursing Notes Geri Holt M.D. - 02/04/2014 9:59 AM CDT Ambulatory Patient Education The following Patient Education Materials have been given to the patient: Patient Education Materials: Otolaryngology Acute Sinusitis Otolaryngology Acute Sinusitis Acute sinusitis is inflammation (irritation and swelling) of the sinuses. It is often due to a bacterial or viral infection of the sinuses. This may follow a cold or other upper respiratory illness. Your doctor can help you find relief. Read on to learn more. What Is Acute Sinusitis? Sinuses are air-filled spaces in the skull behind the face. They are kept moist and clean by a lining of mucosa. Things such as pollen, smoke, and chemical fumes can irritate the mucosa. It can then become inflamed (swell up). As a response to irritation, the mucosa makes more mucus and other fluids. Tiny hairlike cilia cover the mucosa. Cilia help transport mucus toward the opening of the sinus. Toomuch mucus may cause the cilia to stop working. This blocks the sinus opening. A buildup of fluid inthe sinuses then leads to symptoms such as pain and pressure. It an also encourage growth of bacteria in the sinuses. Common Symptoms of Acute Sinusitis You may have: ?? Facial pain ?? Headache ?? Fever ?? Postnasal drip ?? Nasal congestion ?? Redness of facial skin over sinus Diagnosis of Acute Sinusitis The doctor will ask about your symptoms and medical history. An evaluation will be done. A culture (sample of mucus) is sometimes taken to check for bacteria. X-rays may be taken to view fluid in the sinuses. Treatment of Acute Sinusitis Treatment is designed to unblock the sinus opening and help the cilia work again. Antihistamine and decongestant medications may be prescribed. These can reduce inflammation and decrease fluid production. If a bacterial infection is present, it can be treated with antibiotic medication. This medication should be taken until it is gone, even if you feel better. Note that antibiotics will not help a viral infection. ?? [id number] [facility], [address] [place] [address]. All rights reserved. This information is not intended as a substitute for professional medical care. Always follow your healthcare professional's instructions. This document has images extracted. Please consider using [employer] for all your patient education needs. Source: [facility] POWERCHART Document Id: [id number] documented in this encounter Miscellaneous Notes Miscellaneous - Geri Holt M.D. - 02/04/2014 9:59 AM CDT Ambulatory Patient Summary [facility] [address], [address] [place] [id number] Visit Information Name: JAYDA GRULLON [facility] Number: [id number] Current Date: 02/04/2014 09:59:33 Physicians Attending Provider: GERI HOLT MD Primary Care Provider: WILLEM SAEED RN, SCROLL SAW OPERATOR JAYDA GRULLON has been given the following list [...] asneeded for Shortness of breath / Wheezing New Routed to [facility] [address] [address] azithromycin (Zithromax Z-Luis 250 mg oral tablet) 2 tablets on day 1, then 1 tablet on days 2-5, Oral, as directed x 5 day(s) New Routed to [facility] [address] [id number] ibuprofen (Advil) Oral, as needed Stop Taking the Following Medications: Medication list as of 02-04-14 09:59 Attention: If you have any medications at home that are not on this list, DO NOT take them until youcontact your provider for clarification. Give a copy of your medication list to your primary care provider. Update your medication list any time medications or doses are changed and carry your medication list at all times in case of emergency. Electronically Signed By: GERI HOLT MD Signed On:04-FEB-2014 09:59:16 Your Allergies & Intolerances Substance Reaction Symptoms [...] local Clinic if further appointment detail needed. Acute Sinusitis Acute sinusitis is inflammation (irritation and swelling) of the sinuses. It is often due to a bacterial or viral infection of the sinuses. This may follow a cold or other upper respiratory illness. Your doctor can help you find relief. Read on to learn more. What Is Acute Sinusitis? Sinuses are air-filled spaces in the skull behind the face. They are kept moist and clean by a lining of mucosa. Things such as pollen, smoke, and chemical fumes can irritate the mucosa. It can then become inflamed (swell up). As a response to irritation, the mucosa makes more mucus and other fluids. Tiny hairlike cilia cover the mucosa. Cilia help transport mucus toward the opening of the sinus. Toomuch mucus may cause the cilia to stop working. This blocks the sinus opening. A buildup of fluid inthe sinuses then leads to symptoms such as pain and pressure. It an also encourage growth of bacteria in the sinuses. Common Symptoms of Acute Sinusitis You may have: ?? Facial pain ?? Headache ?? Fever ?? Postnasal drip ?? Nasal congestion ?? Redness of facial skin over sinus Diagnosis of Acute Sinusitis The doctor will ask about your symptoms and medical history. An evaluation will be done. A culture (sample of mucus) is sometimes taken to check for bacteria. X-rays may be taken to view fluid in the sinuses. Treatment of Acute Sinusitis Treatment is designed to unblock the sinus opening and help the cilia work again. Antihistamine and decongestant medications may be prescribed. These can reduce inflammation and decrease fluid production. If a bacterial infection is present, it can be treated with antibiotic medication. This medication should be taken until it is gone, even if you feel better. Note that antibiotics will not help a viral infection. ?? 5607-1301 [facility], [address] [place] [address], [place] [address]. All rights reserved. This information is not intended as a substitute for professional medical care. Always follow your healthcare professional's instructions. Your Goals/Additional instructions: This document has images extracted. Please consider using [employer] for all your patient education needs. Source: [facility] POWERCHART Document Id: [id number] Miscellaneous - Geri Holt M.D. - 02/04/2014 9:59 AM CDT Ambulatory Discharge Medication List [facility] [address], [address] [place] [id number] Visit Information Name: JAYDA GRULLON [facility] Number: [id number] Visit Date: 02/04/2014 09:59:32 Attending Provider: GERI HOLT MD Primary Care Provider: WILLEM SAEED RN, SCROLL SAW OPERATOR JAYDA GRULLON has been given the following list [...] asneeded for Shortness of breath / Wheezing New Routed to [facility] [address] [id number] azithromycin (Zithromax Z-Luis 250 mg oral tablet) 2 tablets on day 1, then 1 tablet on days 2-5, Oral, as directed x 5 day(s) New Routed to [facility] [address] [id number] ibuprofen (Advil) Oral, as needed Stop Taking the Following Medications: Medication list as of 02-04-14 09:59 Attention: If you have any medications at home that are not on this list, DO NOT take them until youcontact your provider for clarification. Give a copy of your medication list to your primary care provider. Update your medication list any time medications or doses are changed and carry your medication list at all times in case of emergency. Electronically Signed By: GERI HOLT MD Signed On:04-FEB-2014 09:59:16 Additional Information: Source: [facility] POWERCHART Document Id: [id number] Miscellaneous - Geri Holt M.D. - 02/04/2014 9:56 AM CDT Normal Results Letter 04 February 2014 JAYDA GRULLON [id number] [address] [place] [phone] Dear JAYDA GRULLON, Jayda was seen by me in clinic today for bronchitis and sinusitis. Sincerely, GERI HOLT [address] [place] [address] [phone] Electronic Signature Electronically Signed By: GERI HOLT MD On: 04 February 2014 This document has images extracted. 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/History Entered On: 02/04/2014 9:26 CDT Performed On: 02/04/2014 9:23 CDT by ARIES ALCALA [facility] Intake Chief Complaint : Sinus symptoms since sunday LMP Date : Hysterectomy Temperature Core : 36.6 DegC(Converted to: 97.9 DegF) Peripheral Pulse Rate : 66 /min ARIES ALCALA CMA - 02/04/2014 9:23 CDT Systolic Blood Pressure : 138 mmHg Diastolic Blood Pressure : 82 mmHg NIBP Mean : 101 mmHg GERI HOLT MD - 02/04/2014 9:53 CDT Height : 161 cm(Converted to: 5 ft 3 inch(es), 63 inch(es)) Actual Weight : 101 kg(Converted to: 222 lb 11 oz) Dosing Weight Clinic : 101 kg Clinic BSA : 2.13 Body Mass Index : 38.96 kg/m2 ARIES ALCALA CMA - 02/04/2014 9:23 CDT General Info Information Given By : Patient Languages : Slovenian Is Patient Female and 13-50 no hysterectomy : No ARIES ALCALA [facility] 02/04/2014 9:23 CDT Subjective Pain Symptoms : Yes ARIES ALCALA [facility] 02/04/2014 9:23 CDT Pain Pain Assessment Grid Pain 1 Location : Head Intensity : 8 ARIES ALCALA [facility] 02/04/2014 9:23 CDT Dependent Habits Tobacco Use/Currently Using : Yes Tobacco Use/Advised to Quit : Yes Exposure to Tobacco Smoke : Patient smokes Smoking Status : Current every day smoker ARIES ALCALA [facility] 02/04/2014 9:23 CDT Tobacco Use Grid Type : Cigarettes Cigarette Use Packs/Day : 0.5 ARIES ALCALA [facility] 02/04/2014 9:23 CDT Caffeine Use Grid Caffeine Use : Current Type : Soft drinks Frequency : Daily ARIES ALCALA [facility] 02/04/2014 9:23 CDT Recreational Drug Use Grid Drug Use : None ARIES ALCALA [facility] 02/04/2014 9:23 CDT [facility] Document Id: [id number] CDT!5 documented in this encounter Plan of Treatment Not on filedocumented as of this encounter Visit Diagnoses Not on filedocumented in this encounter
--- OUTSIDE RECORDS SUMMARY | 2022-01-29 10:53 | XMS_ITS | Encounter Summary ---
:1970 Author Organization [facility] Address [address] [place] [address] Care Team Providers Name Role Phone Mily Contreras APRN C.N.P., D.N.P. Primary Care Provider Encounter Details Date Type Department Care Team Description 06/27/2018 Procedure visit Division of Destiney Narvaez M .B[facility] [address] [place] [phone] Polyarthritis; Rheumatology in Jhon Medina M.D. [address] [place] [address] Epicondylitis Medial Left; [place], [place] Epicondylitis Lateral Right [address] [place] [phone] Social History Tobacco Use Types Packs/Day Years Used Date Smoking Tobacco: Every Day Cigarettes 1.5 25 S tarted: 1985 Smokeless Tobacco: Never Alcohol Use Standard Drinks/Week Comments Yes 0 (1 standard drink = 0.6 oz pure alcoho l) Sex Assigned at Date Recorded Not on file documented as of this encounter Procedure Notes Jhon Median M.D. - 06/27/2018 1:00 PM CSTAssociated Order(s): RHU NON- GUIDED ASPIRATION/INJECTION - LARGE JOINT Pre-Procedure Diagnose(s): Polyarthritis; Epicondylitis Medial Left; Epicondylitis Lateral Right Post-Procedure Diagnose(s): Polyarthritis; Epicondylitis Medial Left; Epicondylitis Lateral Right Right trochanteric bursa steroid injection Date/Time: 06/27/2018 1:05 PM Performed by: JHON MEDINA Authorized by: DESTINEY NARVAEZ Care team members present: Izabela Greco, Dr. Flako Zamora, Dr. Nany Paula (on floor) Senior Software Project Manager utilized: scrap burner not needed Risks discussed with: patient Procedural risks discussed, including (but not limited to) the following: allergic reaction, bleeding, bruising, transient increased pain, infection, hematoma and possible continued pain Consent obtained: written The benefits, risks and alternatives to the procedure and the potential need for sedation or anesthesia as well as the names, roles, and responsibilities of healthcare team members performing significant interventional tasks were discussed with the patient and/or decision maker: yes The benefits, risks and alternatives to the possible need for blood products were discussed with thepatient and/or decision maker: not addressed All relevant documentation and testing were reviewed and available. All required blood products, implants, devices and/or special equipment were made available as applicable. The pre-procedure verification was conducted, the correct site was marked if required, and the procedural time out was conducted prior to performing the procedure and confirmed in a procedural pause: yes Procedure purpose: therapeutic Appropriate hand hygiene, gown, cap, mask, protective eyewear, sterile gloves, skin preparation, sterile drape, and strict aseptic technique were utilized as applicable for the procedure: yes Skin preparation: chlorhexidine Anesthesia method: pre-procedure topical application and pre-procedure local infiltration Pre-procedure topical agents: ethyl chloride Pre-procedure local infiltration: lidocaine 1% plain Procedure location: hip - Hip site: R greater troch bursa Site prep: patient was prepped and draped in usual sterile fashion Patient position: side-lying Procedure performed: injection only Needle gauge: 22 G The following medications were administered at the target site(s): Local anesthetic: 2 mL lidocaine 10 mg/mL (1 %) Corticosteroid: 80 mg methylPREDNISolone acetate 40 mg/mL Procedure completed successfully: yes Complications: no apparent complications Post-procedure instructions: avoid strenuous activity for 2 days, avoid submersion of procedure site for 48 hours and post-procedure activity instructions provided Discharge instructions: ice area as needed for comfort, pain management instructions, dressing careand follow-up with ordering provider CTOR OF CLAIMS documented in this encounter Plan of Treatment Not on filedocumented as of this encounter Procedures Procedure Name Priority Date/Time Associated Diagnosis Comme nts RHU NON-GUIDED Routine 06/27/2018 1:00 PM Polyarthritis Results for this ASPIRATION/INJECTIO DIRECTOR OF CLAIMS Epicondylitis Medial procedure are in N - LARGE JOINT Left the results Epicondylitis section. Lateral Right documented in this encounter Results Non-Guided Aspiration/Injection - Large Joint (06/27/2018 1:00 PM DIRECTOR OF CLAIMS) Narrative Jhon Medina M.D. - 06/27/2018 1:00 PM DIRECTOR OF CLAIMS Jhon Medina M.D. ? 06/27/2018 ??1:16 PM Right trochanteric bursa steroid injecti on Date/Time: 06/27/2018 1:05 PM Performed by: JHON MEDINA Authorized by: DESTINEY NARVAEZ Care team members present: ??Izabela Greco, Dr. Flako Zamora, Dr. Nany Paula (on floor) Senior Software Project Manager utilized: scrap burner not ne eded ?? Risks discussed with: [...] provider Destiney Peña PROCEDURE/MINOR SURGICAL ORD ERABLES documented in this encounter Visit Diagnoses Diagnosis Polyarthritis Epicondylitis Medial Left Epicondylitis Lateral Right documented in this encounter Administered Medications Inactive Administered Medications - up to 3 most recent administrations Medication Order MAR Action Action Date Dose Rate Site lidocaine 10 mg/mL (1 %) injection 2 Given 06/27/2018 1:05 PM CS T 2 mL mL (XYLOCAINE) 2 mL, infiltration, One-Time Injection, Starting on Alisha 06/27/18 at 1305, For 1 dose methylPREDNISolone acetate injection 80 mg Given 06/27/2018 1:05 PM DIRECTOR OF CLAIMS 80 mg (DEPO-Medrol) 80 mg, intra-articular, One-Time Injection, Starting on Alisha 06/27/18 at 1305, For 1 dose documented in this encounter Care Teams Preprint Analyst Relationship Specialty Start Date End Date Mily Contreras, GILBERT, C.N.P., PCP - General Family Medicine 03/22/19 D.N.P. [address] [place] [id number] documented as of this encounter
--- OUTSIDE RECORDS SUMMARY | 2022-01-29 10:53 | XMS_ITS | Encounter Summary ---
:1970 Author Organization [facility] Address [address] [place] [address] Care Team Providers Name Role Phone Mily Contreras APRN, C.N.P., D.N.P. Primary Care Provider Encounter Details Date Type Department Care Team Description 06/24/2018 Hospital Encounter Department of Muriel, Liang mcneill; Radiology, Emerita Cabello, Epicondylit is Medial Left; Building, in [facility] Epicondylitis Lateral Right [place], [place] [address] [facility] [address] [place] [phone] Social History Tobacco Use Types Packs/Day Years [...] Name Priority Date/Time Associated Comments Diagnosis DX FOOT ANKLE RAD - Routine 06/24/2018 10:15 Polyarthritis Results for this BILATERAL 3 VIEWS (most inpatients AM SLASHER TENDER HELPER Epicondylitis proce dure are in and all Medial Left the results outpatients) Epicondylitis section. Lateral Right documented in this encounter Results DX Foot Ankle Bilateral 3 Views (06/24/2018 10:15 AM SLASHER TENDER HELPER) Anatomical Region Laterality Modality Lower Extremity, Foot, Ankle, Musculoskeletal RST LOS, Bilat eral Digital Radiography Musculoskeletal ARZ LOS, Muskuloskeletal FLA LOS Specimen (Source) Anatomical Collection Method Collection Time Re ceived Time Location / / Volume Laterality 06/24/2018 10:27 AM SLASHER TENDER HELPER Impressions 06/24/2018 10:30 AM SLASHER TENDER HELPER IMPRESSION: ??Corticated ossicles adjacent to the medial [...] the 1st metatarsals. Narrative 06/24/2018 10:30 AM SLASHER TENDER HELPER EXAM: ??DX FOOT ANKLE BILATERAL 3 VIEWS [...] Right documented in this encounter Care Teams Inbound Telemarketer Relationship Specialty Start Date End Date Mily Contreras APRN, C.N.P., PCP - General Family Medicine 03/22/19 D.N.P. [address] [place] [address] documented as of this encounter
--- OUTSIDE RECORDS SUMMARY | 2022-01-29 10:53 | XMS_ITS | Encounter Summary ---
:1970 Author Organization [facility] Address [address] [place] [address] Care Team Providers Name Role Phone Elsewhere, Pcp Primary Care Provider Unavailable Reason for Visit Reason Comments COVID Inquiry Encounter Details Date Type Department Care Team Description 07/07/2020 Clinical Communication Central Appointment [place] Office in [address] [id number] Social History Tobacco Use Types Packs/Day Years Used Date Smoking Tobacco: Every Day Cigarettes 1.5 25 S tarted: 1985 Smokeless Tobacco: Never Alcohol Use Standard Drinks/Week Comments Yes 0 (1 standard drink = 0.6 oz pure alcoho l) Sex Assigned at Date Recorded Not on file documented as of this encounter Miscellaneous Notes Telephone Encounter - Analia Pinto - 07/07/2020 10:11 AM CDT What is the purpose of the call?: Requesting Testing Only Request Testing In the past 14 days are any of the following symptoms new to you and not related to an existing health condition?: New headache Because of symptoms, transfer patient to: : [place] COVID Nurse Line (End Screening) Symptom Onset Date of symptom onset: 07/05/20 Testing Recommendation Endpoint Is testing recommended? : Recommended to test Plan: Endpoint recommendation: Transferred to Nursing/COVID Line/Care Team *Reminder if sending patient for testing in [facility] or [facility], route encounter to the correct testing pool. documented in this encounter Plan of Treatment Not on filedocumented as of this encounter Visit Diagnoses Not on filedocumented in this encounter Care Teams Civil Lawyer Relationship Specialty Start Date End Date Elsewhere, Pcp PCP - General Internal Medicine 11/26/19 documented as of this encounter
--- OUTSIDE RECORDS SUMMARY | 2022-01-29 10:53 | XMS_ITS | Encounter Summary ---
:1970 Author Organization [facility] Address [address] [place] [address] Care Team Providers Name Role Phone Mily Contreras APRN, C.N.P., D.N.P. Primary Care Provider Reason for Referral Outpatient (Routine) - Closed Specialty Diagnoses / Procedures Referred By Contact Refer red To Contact Diagnoses Primary Osteoarthritis Elbow Left Destiney Llamas M.B.B.S. [facility] Procedures NM Joint Scan AK BONE/JOINT IMAGING MULT AREAS HC BONE/JOINT IMAGING MULT AREAS AK BONE/JOINT IMAGING MULT AREAS [address] [place] [address] Referral ID Status Reason Start Date Expiration Date Visits Requ ested Visits Authorized [id number] Closed 06/26/2018 06/26/2019 6 6 FOREMAN Reason for Visit Outpatient (Routine) - Closed Specialty Diagnoses / Procedures Referred By Contact Refer red To Contact Diagnoses Primary Osteoarthritis Elbow Left Destiney Llamas M.B.B.SCarine [facility] Procedures NM Joint Scan AK BONE/JOINT IMAGING MULT AREAS HC BONE/JOINT IMAGING MULT AREAS AK BONE/JOINT IMAGING MULT AREAS [address] [place] [phone] Referral ID Status Reason Start Date Expiration Date Visits Requ ested Visits Authorized [id number] Closed 06/26/2018 06/26/2019 6 6 Encounter Details Date Type Department Care Team Description 06/27/2018 Hospital Encounter Department of [facility], Primary Osteoarthritis Radiology, Gonda Destiney, Elbow Left Building, in [facility] [place], [address] [place], [place] [address] [facility] [address] [place], [place] [phone] (Work) [phone] Social History Tobacco Use Types Packs/Day Years [...] Results f or this (most inpatients AM PIPE FOREMAN Osteoarthritis Elbow pro cedure are in and all Left the results outpatients) section. documented in this encounter Results NM Joint Scan (06/27/2018 11:59 AM PIPE FOREMAN) Anatomical Region Laterality Modality Joint, Nuclear Medicine RST LOS, Nuclear Medicine ARZ N/A Nuclear Medicine LOS, Nuclear Medicine FLA LOS Specimen (Source) Anatomical Collection Method Collection Time Re ceived Time Location / / Volume Laterality 06/27/2018 12:12 PM PIPE FOREMAN Impressions 06/27/2018 12:29 PM PIPE FOREMAN IMPRESSION: ??Mild scattered uptake about the left lateral forefoot, right femoral trochanteric bursa and left knee suprapatellar synovium; favor degenerative process. Narrative 06/27/2018 12:29 PM PIPE FOREMAN EXAM: ??NM JOINT SCAN RADIOPHARMACEUTICAL/MEDS: Route: intravenous sodium pertechnetate Tc 99m injection (T ECHNETIUM Tc-99m),21.3 millicurie TECHNIQUE: Multiple planar images of the joints obtained at 0.1 hours after IV radiotracer injection. COMPARISON: ??Foot/hand/elbow radiograph s from 06/24/2018. INDICATION: ??Arthralgia. Clinical suspi cion for inflammatory arthropathy. FINDINGS: ??Mild soft tissue activity ab out the left lateral forefoot. Mild soft tissue activity about the proximal right femoral right greater trochanter. Mild linear uptake within the suprapatellar l eft knee. Otherwise no significant periarticular uptake. Procedure Note Donald Jackson M.D. - 06/27/2018Formatt ing of this note might be different from the original. EXAM: NM JOINT SCAN RADIOPHARMACEUTICAL/MEDS: Route: intravenous sodium pertechnetate Tc 99m injection (T ECHNETIUM Tc-99m),21.3 millicurie TECHNIQUE: Multiple planar images of the joints obtained at 0.1 hours after IV radiotracer injection. COMPARISON: Foot/hand/elbow radiographs from 06/24/2018. INDICATION: Arthralgia. Clinical suspici on for inflammatory arthropathy. FINDINGS: Mild soft tissue activity abou t the left lateral forefoot. Mild soft tissue activity about the proximal right femoral right greater trochanter. Mild linear uptake within the suprapatellar l eft knee. Otherwise no significant periarticular uptake. IMPRESSION: Mild scattered uptake about the left lateral forefoot, right femoral trochanteric bursa and left knee suprapatellar synovium; favor degenerative process. Destiney Peña [facility] PROCEDURES documented in this encounter Visit Diagnoses Diagnosis Primary Osteoarthritis Elbow Left documented in this encounter Administered Medications Inactive Administered Medications - up to 3 most recent administrations Medication Order MAR Action Action Date Dose Rate Site sodium pertechnetate Tc 99m Given 06/27/2018 11:45 AM 21.3 aurelia curies injection (TECHNETIUM PIPE FOREMAN Tc-99m) 21.3 millicurie, intravenous, Once, On Alisha 06/27/18 at 1145, For 1 dose documented in this encounter Care Teams Ops Manager Relationship Specialty Start Date End Date Mily Contreras APRN, C.N.P., PCP - General Family Medicine 03/22/19 D.N.P. [address] [place] [id number] documented as of this encounter
--- OUTSIDE RECORDS SUMMARY | 2022-01-29 10:53 | XMS_ITS | Encounter Summary ---
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
--- OUTSIDE RECORDS SUMMARY | 2022-01-29 10:53 | XMS_ITS | Encounter Summary ---
:1970 Author Organization [facility] Address [address] [place] [address] Care Team Providers Name Role Phone Elsewhere, Pcp Primary Care Provider Unavailable Reason for Visit Reason Onset Date Comments Testing For Upper Respiratory Virus Symptoms 07/07/2020 Encounter Details Date Type Department Care Team Description 07/07/2020 External Outreach Department of Employer Based , Covid Serology Testing Contact With And Family Medicine, Flako Montgomery P.A.SiobhanC. [address] [place] [address] (Suspected) Exposure [facility], in To COVID -19 (Primary [place], [place] Dx) [address] [place] [address] Social History Tobacco Use Types Packs/Day Years Used Date Smoking Tobacco: Every Day Cigarettes 1.5 25 S tarted: 1985 Smokeless Tobacco: Never Alcohol Use Standard Drinks/Week Comments Yes 0 (1 standard drink = 0.6 oz pure alcoho l) Sex Assigned at Date Recorded Not on file documented as of this encounter Progress Notes Nadia Mckeon R.N. - 07/07/2020 10:41 AM CDT Encounter created for symptomatic infectious disease screening with possible COVID, Influenza, RSV, and/or Group A Strep testing. documented in this encounter Plan of Treatment Not on filedocumented as of this encounter Procedures Procedure Name Priority Date/Time Associated Diagnosis Comme nts SARS CORONAVIRUS-2 Routine 07/07/2020 11:06 AM Contact With An d Results for this RNA, V CDT (Suspected) Exposure procedu re are in To COVID-19 the results section. documented in this encounter Results SARS Coronavirus-2 RNA, V Symptomatic (07/07/2020 11:06 AM CDT) [facility] Method Time Signature SARS-CoV-2 Swab, 07/07/2020 ECLR Specimen Nasopharynx 9:46 PM CDT Source SARS CoV-2 Undetected Undetected 07/07/2020 ECLR RNA, TMA 9:46 PM CDT Comment: SARS-CoV-2 RNA absent. This result does not rule out COVID-19 in the patient, as the sensitivity of the test depends o n the timing of the specimen collection and the quality of the specim en. Result should be correlated with patient's history and clinical presentat ion. ----ADDITIONAL INFORMATION---- This molecular amplification test was pe rformed using the Aptima SARS-CoV-2 assay ([employer] on the Tethiss tem under emergency use authorization (EUA) by the U.S. Food and Drug Administ ration. Fact sheets for this EUA assay can be fo und at the following links: For Healthcare Providers: https://www.fd a.gov/media/144726/download For Patients: https://www.fda.gov/media/ 864466/download Specimen Anatomical Collection Method Collection Time Receive d Time (Source) Location / / Volume Laterality Varies 07/07/2020 11:06 07/07/2020 3:20 (Nasopharynx) AM CDT PM CDT Flako Montgomery P.A.-C. LAB MICROBIOLOGY - GENERAL O RDERAKIMBERLEE Performing Organization Address City/State/ZIP Code Phon e Number [facility]- [address] [place] [phone] [facility] [place] [address] System [address] documented in this encounter Visit Diagnoses Diagnosis Contact With And (Suspected) Exposure To COVID-19 - Primary documented in this encounter Additional Health Concerns Infection Onset Date Last Indicated Resolved Time COVID19 Pending 07/07/2020 07/07/2020 07/07/2020 9:46 PM CDT documented as of this encounter Care Teams Broke Man Relationship Specialty Start Date End Date Elsewhere, Pcp PCP - General Internal Medicine 11/26/19 documented as of this encounter
--- OUTSIDE RECORDS SUMMARY | 2022-01-29 10:53 | XMS_ITS | Encounter Summary ---
:1970 Author Organization [facility] Address [address] [place] [address] Care Team Providers Name Role Phone Unavailable Primary Care Provider Unavailable Encounter Details Date Type Department Care Team Description 02/09/2014 Hospital Encounter [facility] Jeffrey Jenkins M.D. [address] [place] [address] (Wo rk) Social History Tobacco Use Types Packs/Day Years Used Date Smoking Tobacco: Never Assessed Sex Assigned at Date Recorded Not on file documented as of this encounter Last Filed Vital Signs Vital Sign Reading Time Taken Comments Blood Pressure 144/86 02/09/2014 9:07 AM CDT Pulse 72 02/09/2014 9:07 AM CDT Temperature - - Respiratory Rate 16 02/09/2014 9:07 AM CDT Oxygen Saturation - - Inhaled Oxygen Concentration - - Weight 101 kg (223 lb 12.3 oz) 02/09/2014 9:07 AM CDT Height 161 cm (5' 3.39) 02/09/2014 9:07 AM CDT Body Mass Index 39.16 02/09/2014 9:07 AM CDT documented in this encounter Medications at Time of Discharge Medication Sig Dispensed Refills Start Date End Date IBUPROFEN ORAL Take by mouth as needed. 0 011 documented as of this encounter Progress Notes Teresa Jenkins M.D. - 02/09/2014 8:38 AM CDT [id number] CHIEF COMPLAINT/REASON FOR VISIT Sinus symptoms. HISTORY OF PRESENT ILLNESS Ms. Grullon is a 43-year-old female who presented to the clinic today for recheck of her sinus symptoms. She was seen on February 04, 2014 when she was diagnosed with acute sinusitis with bronchitis. She was treated with albuterol and a Z-Luis. The patient completed the Z-Luis yesterday and presented to the clinic today due to ongoing symptoms. She denied any fever or chills today. She continues to have a persistent cough that is somewhat productive in nature. She continues to feel congested and alsohas some nasal drainage that is greenish and yellowish in nature. No sick contact reported. SYSTEMS REVIEW GENERAL: No fever, no chills. HEART: Chest pain noted with cough. LUNGS: Chest pain with cough. No shortness of breath noted. GASTROINTESTINAL: No diarrhea, no constipation,no pain noted. NEUROLOGIC: No numbness, tingling, no slurred speech. No seizure, no dizziness noted. PAST MEDICAL/SURGICAL HISTORY Reviewed. Please see EMR. PHYSICAL EXAMINATION GENERAL: She is alert, oriented, in no acute distress. VITAL SIGNS: Reviewed and stable except blood pressure of 144/86, temp is 36.2. HEART: Regular rate and rhythm. No murmur. No gallop or rubs noted. LUNGS: Clear to auscultation. No expiratory wheezes. No accessory muscles used. HEENT: TMs normal bilaterally. Tonsils not enlarged. Not erythematous. No cervical adenopathy noted.She does have some tenderness on palpation of the maxillary and frontal sinuses. EXTREMITIES: No calf pain. No peripheral edema noted. IMPRESSION/REPORT/PLAN 1. Acute bronchitis. 2. Acute sinusitis. I reviewed Dr. Allison's note from 02/04/2014. She continues to have some discomfort. She completed azithromycin yesterday and she understands that the medication will stay in her system for an additional5 days or so. We discussed other conservative treatment. Due to her ongoing cough and bronchitis, pre scription of prednisone given to the patient for the next 5 days. She is also advised to use Afrin nasal spray for the next 3 days and to use the nasal saline irrigation at bedtime to assist with postnasal drainage that is causing some of the cough symptoms. Worsening symptoms reviewed and she is to call if she has any questions or concern. Ready to learn. No apparent learning barriers were identified. Learning preferences include listening. Explained diagnosis and treatment plan. Patient/Child/Caregiver expressed understanding of the content. Teresa Jenkins M.D./mikey Electronically Signed By: TERESA JENKINS MD On: 02/11/2014 09:44 AM Source: [facility] MHSDOLBEYNONRADSYS Document Id: [id number] documented in this encounter Nursing Notes Sola Mcgovern L.P.N. - 02/09/2014 9:09 AM CDT Nurse Only Documentation Nurse Only Documentation Entered On: 02/09/2014 9:10 CDT Performed On: 02/09/2014 9:09 CDT by SOLA MCGOVERN LPN Nurse Only Documentation Nurse Only Visit Documentation : Has been coughing since 02/01/14. Chest and back hurt and head still feels full. SOLA MCGOVERN LPN - 02/09/2014 9:09 CDT Source: [facility] POWERCHART Document Id: [id number] CDT!3 documented in this encounter Miscellaneous Notes Miscellaneous - Vickie Gloria L.PCarineNCarine - 02/09/2014 1:50 PM CDT Normal Results Letter 09 February 2014 CANDY GRULLON [address] [phone] Dear CANDY GRULLON, I am pleased to report that your results from your Chest Xray is negative and normal. Please follow up with us as we discussed during your visit or sooner if you have any concerns. If you have questions or concerns, please do not hesitate to call our office. Sincerely, Result Name Current Result XR Chest 2 Views 02/09/2014 Sincerely, VICKIE GLORIA Electronic Signature Electronically Signed By: VICKIE GLORIA LPN On: 09 February 2014 This document has images extracted. Source: [facility] IntellinX Document Id: [id number] Electronically signed by Conversion, Health system Furnace Process Plant Operator [id number] at 09/18/2016 11:31 PM CDT Teresa Torres M.D. - 02/09/2014 10:54 AM CDT Results Notification Document Contains Addenda Addendum by VICKIE GLORIA LPN on 09 February 2014 13:51:04 CDT Letter completed and charted per --Maryse HEATH From: TERESA JENKINS MD Sent: 02/09/2014 10:54:35 CDT ! Show up: 02/09/2014 10:54:35 CDT Subject: Results Notification Actions: Notify patient of results Reminder Comments: Chest Xray is normal. Please send copy of the result to the patient. Results: Date Result Type Result Name 02/09/2014 9:36 Radiology XR Chest 2 Views Source: [facility] [employer]ell[employer] Document Id: [id number] Electronically signed by Conversion, Health system Furnace Process Plant Operator [id number] at 09/18/2016 11:31 PM CDT Martin - Teresa Jenkins M.D. - 02/09/2014 10:53 AM CDT Ambulatory Patient Summary [address] [place], [place] [id number] Visit Information Name: CANDY GURLLON [facility] Number: [id number] Current Date: 02/09/2014 10:53:21 Physicians Attending Provider: TERESA JENKINS MD Primary Care Provider: WILLEM SAEED RN, REGIONAL MAINTENANCE MANAGER CANDY GRULLON has been given the following [...] asneeded for Shortness of breath / Wheezing *azithromycin (Zithromax Z-Luis 250 mg oral tablet) 2 tablets on day 1, then 1 tablet on days 2-5, Oral, as directed x 5 day(s) ibuprofen (Advil) Oral, as needed predniSONE (predniSONE 20 mg oral tablet) 1 Tablet(s), Oral, two times a day x 5 day(s) New Routed to [address] [address] * You have let us know that you are not taking this medication as listed. Please talk with your primary care provider or the health care provider who prescribed the medication as soon as possible. Stop Taking the Following Medications: Medication list as of 02-09-14 10:53 Attention: If you have any medications at home that are not on this list, DO NOT take them until youcontact your provider for clarification. Give a copy of your medication list to your primary care provider. Update your medication list any time medications or doses are changed and carry your medication list at all times in case of emergency. Electronically Signed By: TERESA JENKINS MD Signed On:09-FEB-2014 10:53:12 Your Allergies & Intolerances Substance Reaction Symptoms [...] appointment detail needed. Your Goals/Additional instructions: Source: [facility] POWERCHART Document Id: [id number] Miscellaneous - Teresa Jenkins M.D. - 02/09/2014 10:53 AM CDT Ambulatory Discharge Medication List [facility] [address], [address] [place], [place] [id number] Visit Information Name: CANDY GRULLON [facility] Number: [id number] Visit Date: 02/09/2014 10:53:20 Attending Provider: TERESA JENKINS MD Primary Care Provider: WILLEM SAEED RN, REGIONAL MAINTENANCE MANAGER CANDY GRULLON has been given the following [...] asneeded for Shortness of breath / Wheezing *azithromycin (Zithromax Z-Luis 250 mg oral tablet) 2 tablets on day 1, then 1 tablet on days 2-5, Oral, as directed x 5 day(s) ibuprofen (Advil) Oral, as needed predniSONE (predniSONE 20 mg oral tablet) 1 Tablet(s), Oral, two times a day x 5 day(s) New Routed to [address] [address] * You have let us know that you are not taking this medication as listed. Please talk with your primary care provider or the health care provider who prescribed the medication as soon as possible. Stop Taking the Following Medications: Medication list as of 02-09-14 10:53 Attention: If you have any medications at home that are not on this list, DO NOT take them until youcontact your provider for clarification. Give a copy of your medication list to your primary care provider. Update your medication list any time medications or doses are changed and carry your medication list at all times in case of emergency. Electronically Signed By: TERESA JENKINS MD Signed On:09-FEB-2014 10:53:12 Additional Information: Source: [facility] POWERCHART Document Id: [id number] Miscellaneous - Sola Mcgovern L.P.N. - 02/09/2014 9:07 AM CDT Adult Slitter Scorer Intake/History Adult Slitter Scorer Intake/History Entered On: 02/09/2014 9:09 CDT Performed On: 02/09/2014 9:07 CDT by SOLA MCGOVERN LPN Intake Chief Complaint : Sinus infection cough since 02/01/14 Temperature Core : 36.2 DegC(Converted to: 97.2 DegF) (LOW) Peripheral Pulse Rate : 72 /min Respiratory Rate : 16 /min Heart Rhythm : Regular Systolic Blood Pressure : 144 mmHg (HI) Diastolic Blood Pressure : 86 mmHg NIBP Mean : 105 mmHg BP Location : Right upper extremity Blood Pressure Cuff Size : Large Height : 161 cm(Converted to: 5 ft 3 inch(es), 63 inch(es)) Actual Weight : 101.5 kg(Converted to: 223 lb 12 oz) Weight Source : Standing scale Dosing Weight Clinic : 101.5 kg Clinic BSA : 2.13 Body Mass Index : 39.16 kg/m2 SOLA MCGOVERN LPN - 02/09/2014 9:07 CDT General Info Information Given By : Patient Languages : Syriac Is Patient Female and 13-50 no hysterectomy : No SOLA MCGOVERN LPN 02/09/2014 9:07 CDT Subjective Pain Symptoms : Yes Respiratory Symptoms : Cough, Wheezing SOLA MCGOVERN LPN 02/09/2014 9:07 CDT Pain Pain Assessment Grid Pain 1 Location : Chest (Comment: From coughing [SOLA MCGOVERN LPN - 02/09/2014 9:07 CDT] ) Laterality : Bilateral Intensity : 8 SOLA MCGOVERN LPN 02/09/2014 9:07 CDT Dependent Habits Tobacco Use/Currently Using : Yes Exposure to Tobacco Smoke : Patient smokes Smoking Status : Current every day smoker SOLA MCGOVERN LPN 02/09/2014 9:07 CDT Tobacco Use Grid Type : Cigarettes Cigarette Use Packs/Day : 0.5 SOLA MCGOVERN LPN 02/09/2014 9:07 CDT Caffeine Use Grid Caffeine Use : Current Type : Soft drinks Frequency : Daily SOLA MCGOVERN LPN 02/09/2014 9:07 CDT Recreational Drug Use Grid Drug Use : None SOLA MCGOVERN LPN - 02/09/2014 9:07 CDT [facility] Document Id: [id number] CDT!47 documented in this encounter Plan of Treatment Not on filedocumented as of this encounter Visit Diagnoses Not on filedocumented in this encounter
--- OUTSIDE RECORDS SUMMARY | 2022-01-29 10:53 | XMS_ITS | Encounter Summary ---
:1970 Author Organization [facility] Address [address] [place] [address] Care Team Providers Name Role Phone Unavailable Primary Care Provider Unavailable Encounter Details Date Type Department Care Team Description 10/13/2015 Hospital Encounter HX [facility] Severo Ruelas, P.A.-C. [address] [place] [address] (Wo rk) Social History Tobacco Use Types Packs/Day Years Used Date Smoking Tobacco: Never Assessed Sex Assigned at Date Recorded Not on file documented as of this encounter Last Filed Vital Signs Vital Sign Reading Time Taken Comments Blood Pressure 135/73 10/13/2015 7:53 AM CDT Pulse 82 10/13/2015 7:53 AM CDT Temperature - - Respiratory Rate 15 10/13/2015 7:53 AM CDT Oxygen Saturation - - Inhaled Oxygen Concentration - - Weight 93 kg (205 lb 0.4 oz) 10/13/2015 7:53 AM CDT Height 162 cm (5' 3.78) 10/13/2015 7:53 AM CDT Body Mass Index 35.44 10/13/2015 7:53 AM CDT documented in this encounter Medications at Time of Discharge Medication Sig Dispensed Refills Start Date End Date IBUPROFEN ORAL Take by mouth as needed. 0 011 documented as of this encounter Progress Notes Kasia Schulz, P.A.-C. - 10/13/2015 8:32 AM CDT Clinic Full Note CHIEF COMPLAINT/REASON FOR VISIT right ankle pain NKI, swollen, tender, bulge on back of ankle HISTORY OF PRESENT ILLNESS Patient is a 45 year old female who presents today for right ankle pain. The patient notes her painhas been present for the past two months, worsening in the past 2 weeks. She states she feels a bump in the back of the heel and this is where the pain located (posterior ankle). She states the pain is worse with walking. She denies any trauma or injury to the ankle. Currently rates her pain at 7/10in severity, achy/throbbing in nature. The patient has been taking ibuprofen 400mg every 4-6 hours. Of note the patient did have a fracture to this ankle before (15 years ago); she states the ankle wascasted, no surgery performed. MEDICATIONS Advil, PO, PRN ALLERGIES acetaminophen-HYDROcodone (vomiting) Demerol HCl (nausea) PAST MEDICAL HISTORY Chronic Nicotine dependence Historical No historical problems PROCEDURES/SURGICAL HISTORY Arthroscopy of knee (03/19/2012), Cataract Removal - LT (08/09/2011), Mammogram (11/21/2010), Breast lumpectomy (2005), Hysterectomy and bilateral salpingo-oophorectomy sample (1994). SOCIAL HISTORY Date Time: 10/13/2015 07:53 Tobacco: Smoking Status: Current every day smoker Exposure: Patient smokes Alcohol: Use: Yes Recreational Drugs: Use: None Type: No Results Found FAMILY HISTORY Mother:Positive: Bipolar disorder; Depression Father:Positive: Maria De Jesus Gehrig's disease Grandfather:Positive: Bone; CA - Lung cancer; Heart attack SYSTEMS REVIEW GENERAL: No fevers, no chills GI: No nausea, no vomiting NEURO: No paresthesias VITAL SIGNS HR: 82 RR: 15 BP: 135 / 73 SpO2: 98% HT: 162 cm WT: 93.0 kg BMI: 35.44 PHYSICAL EXAMINATION GENERAL: Patient is in no distress. HEENT: Normocephalic HEART/VASCULAR: 2+ right PT and DP pulse, no pedal edema EXTREMITIES: Right lower extremity: 5/5 strength with plantarflexion, 5/5 strength with dorsiflexion. Calcaneal bursa in the posterior ankle is enlarged and tender to palpation. Negative Rodgers's test. Able to wiggle toes. Capillary refill <2 seconds, foot is warm. NEURO: Alert and nonfocal PSYCH: Appropriate affect IMPRESSION/REPORT/PLAN Bursitis Calcaneal R Rest, ice, ibuprofen 600mg every 8 hours (or 400mg every 4-6 hours, if patient prefers to take it like this). The patient wears steal toed boots for work and will need to continue to do so. I suggested finding padding for the back of her heal or a heal cup to raise the heal to prevent rubbing/irritation. Ice when she returns from work. When not at work wear shoes without a backing that will not irritate the bursa. Follow up as needed. Patient states understanding of diagnosis and treatment, all herquestions were answered. Electronically Signed By: KASIA SCHULZ P.A.-C. On: 10/17/2015 10:33 AM Source: [employer] Document Id: [id number] documented in this encounter Miscellaneous Notes Miscellaneous - Sandra Cespedes LCarineP.N. 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 Intake/History Entered On: 10/13/2015 7:56 CDT Performed On: 10/13/2015 7:53 CDT by SANDRA CESPEDES LPN Intake Chief Complaint : right ankle pain NKI, swollen, tender, bulge on back of ankle Peripheral Pulse Rate : 82 /min Respiratory Rate : 15 /min Systolic Blood Pressure : 135 mmHg Diastolic Blood Pressure : 73 mmHg NIBP Mean : 94 mmHg BP Location : Left upper extremity Blood Pressure Cuff Size : Large SpO2 : 98 % Oxygen Therapy : Room air Height : 162 cm(Converted to: 5 ft 4 inch(es), 64 inch(es)) Actual Weight : 93.0 kg(Converted to: 205 lb 0 oz) Weight Source : Standing scale Dosing Weight Clinic : 93 kg Clinic BSA : 2.05 Body Mass Index : 35.44 kg/m2 SANDRA CESPEDES LPN - 10/13/2015 7:53 CDT General Info Information Given By : Patient Languages : Georgian Is Patient Female and 13-50 no hysterectomy : No SANDRA CESPEDES LPN - 10/13/2015 7:53 CDT Subjective Pain Symptoms : Yes SANDRA CESPEDES LPN - 10/13/2015 7:53 CDT Pain Scale Pain Scale Verbal 0-10 : Open SANDRA CESPEDES LPN - 10/13/2015 7:53 CDT Pain Pain Assessment Grid Pain 1 Location : Ankle Laterality : Right Intensity : 7 SANDRA CESPEDES LPN - 10/13/2015 7:53 CDT Dependent Habits Exposure to Tobacco Smoke : Patient smokes Smoking Status : Current every day smoker Tobacco 2A : Yes Tobacco Use/Currently Using : Yes Tobacco Use/Last 30 Days : Yes Tobacco Use/Last 12 months : Yes Type : Cigarettes: Less than 20 per day Tobacco Use/Advised to Quit : Yes Alcohol Use : Yes SANDRA CESPDEES LPN - 10/13/2015 7:53 CDT Caffeine Use Grid Caffeine Use : Current Type : Soft drinks Frequency : Daily SANDRA CESPEDES LPN - 10/13/2015 7:53 CDT Recreational Drug Use Grid Drug Use : None SANDRA CESPEDES LPN - 10/13/2015 7:53 CDT [facility] Document Id: [id number] CDT!50 documented in this encounter Plan of Treatment Not on filedocumented as of this encounter Visit Diagnoses Not on filedocumented in this encounter
--- OUTSIDE RECORDS SUMMARY | 2022-01-29 10:53 | XMS_ITS | Encounter Summary ---
:1970 Author Organization [facility] Address [address] [place] [address] Care Team Providers Name Role Phone Unavailable Primary Care Provider Unavailable Encounter Details Date Type Department Care Team Description 07/13/2014 Hospital Encounter HX [facility] Otilia Johnson, COMMISSIONING SPECIALIST, C.N.P. [address] [place], [place] [address] (Wo rk) Social History Tobacco Use Types Packs/Day Years Used Date Smoking Tobacco: Never Assessed Sex Assigned at Date Recorded Not on file documented as of this encounter Last Filed Vital Signs Vital Sign Reading Time Taken Comments Blood Pressure 116/68 07/13/2014 10:24 AM CDT Pulse - - Temperature - - Respiratory Rate 18 07/13/2014 10:24 AM CDT Oxygen Saturation - - Inhaled Oxygen Concentration - - Weight 98.2 kg (216 lb 7.9 oz) 07/13/2014 10:24 AM CDT Height 161.5 cm (5' 3.58) 07/13/2014 10:24 AM CDT Body Mass Index 37.65 07/13/2014 10:24 AM CDT documented in this encounter Medications at Time of Discharge Medication Sig Dispensed Refills Start Date End Date IBUPROFEN ORAL Take by mouth as needed. 0 011 documented as of this encounter Progress Notes Isabelle Johnson, R.N. - 07/13/2014 9:20 AM CDT [id number] CHIEF COMPLAINT/REASON FOR VISIT Pre-employment physical. HISTORY OF PRESENT ILLNESS Candy is a very pleasant 44-year-old female who comes into the clinic today requesting a pre-employment physical for her new position at [employer]. She states she worked at [employer] many years ago and is excited to return to her previous employer. She has been recently working at [place] [facility] [employer] have more regular consistent hours. She has no new medical concerns today. She denies any acute illnesses. She states she already completed her physical therapy evaluation as well as her urine drugscreen. She has no other concerns today. MEDICATIONS No home medications. ALLERGIES Acetaminophen/hydrocortisone combination and Demerol HCI. PHYSICAL EXAMINATION Please see EMR for [employer] preemployment physical form. IMPRESSION/REPORT/PLAN Preemployment exam. PLAN: Candy is cleared for employment at [employer] pending the results of her urine drug test. She isplanning to start employment sometime the first part of July 2014. 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 The pre-employment physical form as well as the physical therapy evaluation form were faxed to [employer].All questions were answered. She left in no acute distress. Ready to learn. No apparent learning barriers were identified. Learning preferences include listening. Explained diagnosis and treatment plan. Patient/Child/Caregiver expressed understanding of the content. Isabelle Johnson NTung/mikey Electronically Signed By: ISABELLE JOHNSON BI DATA ARCHITECT On: 07/13/2014 09:41 PM Modified by and Electronically Signed by: ISABELLE JOHNSON BI DATA ARCHITECT On: 07/13/2014 09:41 PM Source: [facility] [email or web address] Document Id: [id number] documented in this encounter Miscellaneous Notes Miscellaneous - Martinez Saenz L.P.N. - 07/13/2014 10:30 AM CDT Health Assessment Health Assessment Entered On: 07/13/2014 10:30 CDT Performed On: 07/13/2014 10:30 CDT by MARTINEZ SAENZ LPN Health Assessment Complete Health Assessment Complete or Modified : Annual Health Assessment Annual Health Assessment Completed : Yes MARTINEZ SAENZ LPN - 07/13/2014 10:30 CDT Nutrition Nutrition Risk Factors by History Adult : None MARTINEZ SAENZ KUMAR - 07/13/2014 10:30 CDT Functional Current Daily Living Assistance : None MARTINEZ SAENZ KUMAR - 07/13/2014 10:30 CDT Dependent Habits Tobacco Use/Currently Using : Yes Tobacco Use/Advised to Quit : Yes Exposure to Tobacco Smoke : Patient smokes Smoking Status : Current every day smoker MARTINEZ SAENZ OPS MANAGER - 07/13/2014 10:30 CDT Tobacco Use Grid Type : Cigarettes Cigarette Use Packs/Day : 0.5 MARTINEZ SAENZ KUMAR - 07/13/2014 10:30 CDT Caffeine Use Grid Caffeine Use : Current Type : Soft drinks Frequency : Daily ROSARIO MARTINEZ Padmini HEATH - 07/13/2014 10:30 CDT Recreational Drug Use Grid Drug Use : None MARTINEZ SAENZ KUMAR - 07/13/2014 10:30 CDT Psychosocial Domestic Abuse Concerns : None Presybeterian Preference : Denominational: Catholic ROSARIO MARTINEZ Padmini HEATH - 07/13/2014 10:30 CDT Advance Directive Advanced Directives : Yes Advance Directive Type : Living will Advance Directive Location : Scanned into EMR ROSARIO MARTINEZ [place] LPN - 07/13/2014 10:30 CDT Educ Needs Learning Style Preference Adult Grid Patient : None Family : None ROSARIO MARTINEZ [place] LPN - 07/13/2014 10:30 CDT Source: [facility] [employer] Document Id: [id number] CDT!36 Miscellaneous - Martinez Saenz L.P.N. 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 Intake/History Entered On: 07/13/2014 10:29 CDT Performed On: 07/13/2014 10:24 CDT by MARTINEZ SAENZ LPN Intake Chief Complaint : pre employment physical for [employer] Respiratory Rate : 18 /min Systolic Blood Pressure : 116 mmHg Diastolic Blood Pressure : 68 mmHg NIBP Mean : 84 mmHg Height : 161.5 cm(Converted to: 5 ft 4 inch(es), 64 inch(es)) Actual Weight : 98.2 kg(Converted to: 216 lb 8 oz) Weight Source : Standing scale Dosing Weight Clinic : 98.2 kg Clinic BSA : 2.1 Body Mass Index : 37.65 kg/m2 MARTINEZ SAENZ LPN - 07/13/2014 10:24 CDT General Info Information Given By : Patient Languages : Macanese Is Patient Female and 13-50 no hysterectomy : No MARTINEZ SAENZ LPN - 07/13/2014 10:24 CDT Subjective Pain Symptoms : No MARTINEZ SAENZ LPN - 07/13/2014 10:24 CDT Dependent Habits Tobacco Use/Currently Using : Yes Tobacco Use/Advised to Quit : Yes Exposure to Tobacco Smoke : Patient smokes Smoking Status : Current every day smoker MARTINEZ SAENZ LPN - 07/13/2014 10:24 CDT Tobacco Use Grid Type : Cigarettes Cigarette Use Packs/Day : 0.5 MARTINEZ SAENZ LPN - 07/13/2014 10:24 CDT Alcohol Use : Yes MARTINEZ SAENZ LPN - 07/13/2014 10:24 CDT Caffeine Use Grid Caffeine Use : Current Type : Soft drinks Frequency : Daily MARTINEZ SAENZ LPN - 07/13/2014 10:24 CDT Recreational Drug Use Grid Drug Use : None MARTINEZ SAENZ LPN - 07/13/2014 10:24 CDT ID Screen Drug Resistant Organism : No Travel Within Last 21 Days : No Contact with someone with Ebola : No MARTINEZ SAENZ LPN - 07/13/2014 10:24 CDT Source: [facility] [employer] Document Id: [id number] CDT!41 documented in this encounter Plan of Treatment Not on filedocumented as of this encounter Visit Diagnoses Not on filedocumented in this encounter
--- OUTSIDE RECORDS SUMMARY | 2022-01-29 10:53 | XMS_ITS | Encounter Summary ---
:1970 Author Organization [facility] Address [address] [place] [address] Care Team Providers Name Role Phone Mily Contreras APRN, C.N.PCarine, D.N.P. Primary Care Provider Reason for Visit Reason Onset Date Comments Results 07/03/2018 Encounter Details Date Type Department Care Team Description 07/03/2018 Clinical Communication Division of [facility] Rheumatology in [place] Ascencio R.N. [address] [place] [phone] Social History Tobacco Use Types Packs/Day Years Used Date Smoking Tobacco: Every Day Cigarettes 1.5 25 S tarted: 1985 Smokeless Tobacco: Never Alcohol Use Standard Drinks/Week Comments Yes 0 (1 standard drink = 0.6 oz pure alcoho l) Sex Assigned at Date Recorded Not on file documented as of this encounter Miscellaneous Notes Telephone Encounter - Zainab Foster R.N. - 07/03/2018 10:37 AM CDT INFORMATION DISCUSSED Patient returned call. Relayed message from results per Dr. Llamas from [facility] Trujillo RN. Patientwill make an appointment with a local physical therapist in [place]. PLAN Disposition/Recommendation: self-care appropriate at this time . Education: patient/caller able to teach back Caller agreeable to plan of care: yes The following references were used: nursing clinical judgement Telephone Encounter - Navi Trujillo R.N. - 07/03/2018 8:[address] Llamas, please let patient know she reviewed her elbow MRI and joint scan. On the MRI, there were no features of inflammatory arthritis. There is medial and lateral epicondylitis as expected (tennis elbow and golfers elbow). ??Dr. Llamas had referred her to PMR to assist with this- wonder if she cancelled this appointment or is planning to pursue this locally? ??Joint scan also did not show any evidence for inflammatory arthritis and uptake was predominantly degenerative. This ??compatible with osteoarthritis for which pain management through her primary care provider is indicated. ??There is no indication at this time for immune suppression. documented in this encounter Plan of Treatment Not on filedocumented as of this encounter Visit Diagnoses Not on filedocumented in this encounter Care Teams Dietary Cook Relationship Specialty Start Date End Date Mily Contreras APRN, C.N.P., PCP - General Family Medicine 03/22/19 D.N.P. [address] [place] [address] documented as of this encounter
--- OUTSIDE RECORDS SUMMARY | 2022-01-29 10:53 | XMS_ITS | Encounter Summary ---
:1970 Author Organization [facility] Address [address] [place] [address] Care Team Providers Name Role Phone Elsewhere, Pcp Primary Care Provider Unavailable Reason for Referral Outpatient (Routine) - Closed Specialty Diagnoses / Procedures Referred By Contact Refer red To Contact Rheumatology Diagnoses Polyarthritis Silvana Velarde C.N.P. [facility] [address] [place], [place] [address] Referral ID Status Reason Start Date Expiration Date Visits Requ ested Visits Authorized [id number] Closed 03/12/2018 03/12/2019 1 1 VERY ROOM SUPERVISOR Encounter Details Date Type Department Care Team Description 03/12/2018 Community Orders [facility] Silvana Velarde Tavon yarthritis [facility] Silva CCarineN.PCarine (Primary Dx) [facility] [address] [place] [address] [phone] Social History Tobacco Use Types Packs/Day Years Used Date Smoking Tobacco: Every Day Sex Assigned at Date Recorded Not on file documented as of this encounter Plan of Treatment Scheduled Referrals Name Type Priority Associated Diagnoses Order S anahy Rheumatology Referral Outpatient Routine Polyarthritis Expec sophy: Referral 03/12/2018 (Approximate), Expires: 03/12/2021 documented as of this encounter Visit Diagnoses Diagnosis Polyarthritis - Primary documented in this encounter Additional Health Concerns Infection Onset Date Last Indicated Resolved Time COVID19 Pending 03/24/2020 03/25/2020 03/25/2020 11:55 PM DELIVERY ROOM SUPERVISOR COVID19 Pending 07/07/2020 07/07/2020 07/07/2020 9:46 PM CDT documented as of this encounter Care Teams Rehabilitation Consultant Relationship Specialty Start Date End Date Elsewhere, Pcp PCP - General Internal Medicine 11/26/19 documented as of this encounter
--- OUTSIDE RECORDS SUMMARY | 2022-01-29 10:53 | XMS_ITS | Encounter Summary ---
:1970 Author Organization [facility] Address [address] [place] [address] Care Team Providers Name Role Phone Unavailable Primary Care Provider Unavailable Encounter Details Date Type Department Care Team Description 06/17/2014 Hospital Encounter [facility] Manuela Hi P.A.-C. Social History Tobacco Use [...] - - Height 161 cm (5' 3.39) 06/17/2014 9:36 AM NICKING MACHINE OPERATOR Body Mass Index - - documented in this encounter Medications at Time of Discharge Medication Sig Dispensed Refills Start Date End Date IBUPROFEN ORAL Take by mouth as needed. 0 011 documented as of this encounter Consult Notes Manuela Brewer - 06/17/2014 9:30 AM CST [id number] Ms. Grullon is a very pleasant 43-year-old female who is here today for her 3rd in a series of Supartz injections to her left knee for pain secondary to degenerative joint disease. After a brief discussion, her knee was prepared in a sterile fashion and a small amount of 1% lidocaine along with 1 standard unit of Supartz was injected into the knee without complication. The procedure was tolerated well. If she has any questions, she was encouraged to call. Otherwise, she will follow up on an as-needed basis, because I believe she is well aware of her situation as well as what treatment options are available to her. Manuela Brewer P.A.-C./mikey Electronically Signed By: MANUELA BREWER PA-C On: 06/22/2014 04:03 PM Source: [facility] MHSDOLBEYNCASPER Document Id: [id number] ING MACHINE OPERATOR documented in this encounter Miscellaneous Notes Miscellaneous - Magda Barrera L.P.N. - 06/17/2014 9:36 AM CST Adult E Commerce Specialist Intake/History Adult E Commerce Specialist Intake/History Entered On: 06/17/2014 9:37 NICKING MACHINE OPERATOR Performed On: 06/17/2014 9:36 NICKING MACHINE OPERATOR by MAGDA BARRERA LPN Intake Chief Complaint : Patient here for 3rd Supartz injection to left knee, pain 3/10 Height : 161 cm(Converted to: 5 ft 3 inch(es), 63 inch(es)) MAGDA BARRERA LPN - 06/17/2014 9:36 NICKING MACHINE OPERATOR General Info Information Given By : Patient Preferred Communication Mode : Verbal Languages : Moroccan Is Patient Female and 13-50 no hysterectomy : No MAGDA BARRERA LPN - 06/17/2014 9:36 NICKING MACHINE OPERATOR Subjective Pain Symptoms : Yes MAGDA BARRERA LPN - 06/17/2014 9:36 NICKING MACHINE OPERATOR Pain Scale Pain Scale Verbal 0-10 : Open MAGDA BARRERA LPN - 06/17/2014 9:36 NICKING MACHINE OPERATOR Pain Pain Assessment Grid Pain 1 Location : Knee Laterality : Left Intensity : 3 MAGDA BARRERA LPN - 06/17/2014 9:36 NICKING MACHINE OPERATOR Dependent Habits Tobacco Use/Currently Using : Yes Exposure to Tobacco Smoke : Patient smokes Smoking Status : Current every day smoker MAGDA BARRERA LPN - 06/17/2014 9:36 NICKING MACHINE OPERATOR Tobacco Use Grid Type : Cigarettes Cigarette Use Packs/Day : 0.5 MAGDA BARRERA LPN - 06/17/2014 9:36 NICKING MACHINE OPERATOR Caffeine Use Grid Caffeine Use : Current Type : Soft drinks Frequency : Daily MAGDA BARRERA LPN - 06/17/2014 9:36 NICKING MACHINE OPERATOR Recreational Drug Use Grid Drug Use : None MAGDA BARRERA LPN - 06/17/2014 9:36 NICKING MACHINE OPERATOR ID Screen Drug Resistant Organism : No Travel Within Last 21 Days : No MAGDA BARRERA LPN - 06/17/2014 9:36 NICKING MACHINE OPERATOR Source: [facility] Document Id: [id number] NICKING MACHINE OPERATOR!38 ING MACHINE OPERATOR documented in this encounter Plan of Treatment Not on filedocumented as of this encounter Visit Diagnoses Not on filedocumented in this encounter
--- OUTSIDE RECORDS SUMMARY | 2022-01-29 10:53 | XMS_ITS | Encounter Summary ---
:1970 Author Organization [facility] Address [address] [place] [address] Care Team Providers Name Role Phone Miyl Contreras APRN C.N.P., D.N.P. Primary Care Provider Reason for Referral MRI/CAT/PET Scan (Routine) - Closed Specialty Diagnoses / Procedures Referred By Contact Refer red To Contact Radiology Diagnoses Primary Osteoarthritis Elbow Left Destiney Llamas [facility] [place] [facility] Procedures MR Elbow Left without and with IV Contrast DE MRI UPR EXT JOINT WO/W CNTRST HC MRI UPR EXT JOINT WO/W CNTRST DE MRI UPR EXT JOINT WO/W CNTRST [address] [place] [address] Referral ID Status Reason Start Date Expiration Date Visits Requ ested Visits Authorized [id number] Closed 06/26/2018 06/26/2019 1 1 NT SERVICE CONSULTANT Reason for Visit MRI/CAT/PET Scan (Routine) - Closed Specialty Diagnoses / Procedures Referred By Contact Refer red To Contact Radiology Diagnoses Primary Osteoarthritis Elbow Left Destiney Llamas [facility] [place] [facility] Procedures MR Elbow Left without and with IV Contrast DE MRI UPR EXT JOINT WO/W CNTRST HC MRI UPR EXT JOINT WO/W CNTRST DE MRI UPR EXT JOINT WO/W CNTRST [address] [place] [address] Referral ID Status Reason Start Date Expiration Date Visits Requ ested Visits Authorized [id number] Closed 06/26/2018 06/26/2019 1 1 Encounter Details Date Type Department Care Team Description 06/27/2018 Hospital Encounter Department of [place], Primary Osteoarthritis Radiology, [place] Destiney, Elbow Le ft [facility], in .[facility] [place], [facility] [address] [place], [place] [address] [facility] [address] [place], [place] [phone] (Work) [phone] Social History Tobacco Use Types Packs/Day Years [...] Concentration - - Weight - - Height 157.5 cm (5' 2) 06/27/2018 2:06 PM CLIENT SERVICE CONSULTANT Body Mass Index - - documented in this encounter Medications at Time of Discharge Medication Sig Dispensed Refills Start Date End Date IBUPROFEN ORAL Take by mouth as needed. 0 011 documented as of this encounter Plan of Treatment Not on filedocumented as of this encounter Procedures Procedure Name Priority Date/Time Associated Diagnosis Comme nts MR ELBOW LEFT RAD - Routine 06/27/2018 2:52 Primary Results fo r WITHOUT AND WITH (most inpatients PM CLIENT SERVICE CONSULTANT Osteoarthritis Elbow this procedure IV CONTRAST and all Left are in the outpatients) results section. documented in this encounter Results MR Elbow Left without and with IV Contrast (06/27/2018 2:52 PM CLIENT SERVICE CONSULTANT) Anatomical Region Laterality Modality Upper Extremity, Elbow, Musculoskeletal RST LOS, Left Magnetic Resonance Musculoskeletal ARZ LOS, Muskuloskeletal FLA LOS Specimen (Source) Anatomical Collection Method Collection Time Re ceived Time Location / / Volume Laterality 06/27/2018 2:39 PM CLIENT SERVICE CONSULTANT Impressions 06/27/2018 3:22 PM CLIENT SERVICE CONSULTANT IMPRESSION: ?? 1. Findings compatible with acute on chr onic medial and lateral epicondylitis. 2. No findings to suggest inflammatory a rthritis in the left elbow. Narrative 06/27/2018 3:22 PM CLIENT SERVICE CONSULTANT EXAM: ??MR ELBOW LEFT WITHOUT AND WITH IV CONTRAST COMPARISON: ??Radiographs of both elbows from 06/24/2018 FINDINGS: ??MRI of the left elbow withou t and with intravenous contrast performed at [address] [facility]. Tendinopathy with low-grade partial thic kness tears of the common flexor tendon origin at the medial epicondyle (series 4 image 10 and series 6 image 26). Mild associated bone edema in the medial epic ondyle. Surrounding soft tissue edema. There is heterotopic bone formation at t his site, suggesting that this is a chronic injury. Tendinopathy of the comm on extensor tendon origin off the lateral epicondyle with low-grade partia l tears (series 4 image 12 and series 6 image 8). Here too, there is some hetero topic bone, suggesting chronic injury. Associated reactive enhancement about th e medial and lateral epicondyles. Otherwise, tendinous insertions about th e elbow are intact. Trace fluid in the radiobicipital bursa. No acute ligamento us injury. No substantial elbow joint effusion. No synovial enhancement after administration of gadolinium. Nothing to suggest active synovitis. No other bone marrow edema. No erosive changes. No sig nificant degenerative arthritis or chondromalacia. Mild nonspecific increased T2 signal of the ulnar nerve in the cubital tunnel. Otherwise, visualized neurovascular stru ctures are unremarkable. Muscular signal intensity and bulk within normal limits. Procedure Note Marjan Bhatti M.D. - 019 EXAM: MR ELBOW LEFT WITHOUT AND WITH IV CONTRAST COMPARISON: Radiographs of both elbows f rom 06/24/2018 FINDINGS: MRI of the left elbow without and with intravenous contrast performed at [address] [facility]. Tendinopathy with low-grade partial thic kness tears of the common flexor tendon origin at the medial epicondyle (series 4 image 10 and series 6 image 26). Mild associated bone edema in the medial epic ondyle. Surrounding soft tissue edema. There is heterotopic bone formation at t his site, suggesting that this is a chronic injury. Tendinopathy of the comm on extensor tendon origin off the lateral epicondyle with low-grade partia l tears (series 4 image 12 and series 6 image 8). Here too, there is some hetero topic bone, suggesting chronic injury. Associated reactive enhancement about th e medial and lateral epicondyles. Otherwise, tendinous insertions about th e elbow are intact. Trace fluid in the radiobicipital bursa. No acute ligamento us injury. No substantial elbow joint effusion. No synovial enhancement after administration of gadolinium. Nothing to suggest active synovitis. No other bone marrow edema. No erosive changes. No sig nificant degenerative arthritis or chondromalacia. Mild nonspecific increased T2 signal of the ulnar nerve in the cubital tunnel. Otherwise, visualized neurovascular stru ctures are unremarkable. Muscular signal intensity and bulk within normal limits. IMPRESSION: 1. Findings compatible with acute on chr onic medial and lateral epicondylitis. 2. No findings to suggest inflammatory a rthritis in the left elbow. Destiney SIFUENTES MRI PROCEDURES documented in this encounter Visit Diagnoses Diagnosis Primary Osteoarthritis Elbow Left documented in this encounter Administered Medications Inactive Administered Medications - up to 3 most recent administrations Medication Order MAR Action Action Date Dose Rate Site gadobutrol injection 0.5-15 mL Given 06/27/2018 2:48 PM CLIENT SERVICE CONSULTANT 10 m L (GADAVIST) 0.5-15 mL, intravenous, Once in imaging, contrast, Starting on Alisha 06/27/18 at 1354, For 1 dose, Imaging Protocol Orders, Dose per Radiant Medication Guidelines documented in this encounter Care Teams Poultry Farm Worker Relationship Specialty Start Date End Date Mily Contreras APRN, C.N.P., PCP - General Family Medicine 03/22/19 D.N.P. [address] [place] [address] documented as of this encounter
--- OUTSIDE RECORDS SUMMARY | 2022-01-29 10:53 | XMS_ITS | Encounter Summary ---
:1970 Author Organization [facility] Address [address] [place] [address] Care Team Providers Name Role Phone Unavailable Primary Care Provider Unavailable Encounter Details Date Type Department Care Team Description 06/01/2014 Hospital Encounter HX [facility] Manuela Brewer P.A.-C. Social History Tobacco Use Types Packs/Day [...] - - Height 161 cm (5' 3.39) 06/01/2014 8:02 AM HIDES SOAKER Body Mass Index - - documented in this encounter Medications at Time of Discharge Medication Sig Dispensed Refills Start Date End Date IBUPROFEN ORAL Take by mouth as needed. 0 011 documented as of this encounter Consult Notes Manuela Brewer - 06/01/2014 7:58 AM CST [id number] Ms. Grullon is a very pleasant 43-year-old female who is here today for followup of her left knee.She is known to have significant degenerative joint disease in that knee as evidenced on her previous arthroscopy which was done approximately 2 years ago. She had grade 2B degenerative changes in the p atellofemoral medial compartment at that point in time. She has worked on strengthening activities, utilized a variety of oral analgesics. She has tried icing and heating and unfortunately is having recurrence of her significant left knee pain. She did do fairly well immediately following the surgery for a few months, but of course her pain has been gradually getting worse. Her pain is located more towards the anterior portion of the knee. PHYSICAL EXAMINATION She has reasonably good motion. She is stable to valgus and varus stress. Her old operative notes were reviewed. IMPRESSION/REPORT/PLAN Ms. Grullon is a 43-year-old female with significant degenerative joint disease in her knee. She has tried and failed pharmacological and nonpharmacological methods of dealing with her pain as discussed above. After a thorough discussion and obtaining informed consent, I suggested to go ahead with aseries of Supartz injections. She was in favor of going ahead with this, so after a thorough discussion, her left knee was prepared in a sterile fashion. A small 1% lidocaine along with 1 standard unitof Supartz was injected into the knee without complication. The procedure was tolerated well. If shehas any questions, she was encouraged to call. Otherwise, she will follow up in the weeks to come for the remainder of her injections. Slightly greater than 15 minutes was spent on the patient today, of which greater than half that time was spent in direct ummz-[id number] counseling in educating the patient about her condition as well treatment options available to her. Manuela Brewer P.A.-C./mikey Electronically Signed By: MANUELA BREWER PA-C On: 06/04/2014 02:32 PM Source: [facility] MHSDOLBEYNONRADSYS Document Id: [id number] S SOAKER documented in this encounter Miscellaneous Notes Miscellaneous - Manuela Brewer - 06/01/2014 12:55 PM CST Ambulatory Patient Summary [facility] [address], [address] [place], [place] [id number] Visit Information Name: CANDY GRULLON [facility] Number: [id number] Current Date: 06/01/2014 12:55:10 Physicians Attending Provider: MANUELA BREWER PA-C Primary Care Provider: WILLEM SAEED RN, CODING SPECIALIST CANDY GRULLON has been given the following [...] Take Indications/Special Instructions/Comments/Notes for Patient Medication Changes/Routing *albuterol (albuterol CFC free 90 mcg/inh inhalation aerosol) 2 puff(s), Inhalation, every 4 hours as needed for Shortness of breath / Wheezing ibuprofen (Advil) Oral, as needed * You have let us know that you are not taking this medication as listed. Please talk with your primary care provider or the health care provider who prescribed the medication as soon as possible. Stop Taking the Following Medications: Medication list as of 06-01-14 12:55 Attention: If you have any medications at [...] Electronically Signed By: MANUELA BREWER PA-C Signed On:01-JUN-2014 12:55:07 Your Allergies & Intolerances Substance Reaction Symptoms Category Comments Demerol HCl nausea Drug acetaminophen-HYDROcodone vomiting Drug Your Problem List Problem Status Onset Comments Nicotine dependence Active 1982 05/31/11 date of onset unknown Throat Pain Active 06/27/2012 Boil of skin and subcutaneous tissue NOS Active 03/28/2013 Your Upcoming Appointments Date Time Location Provider 06/08/2014 08:45 [facility] Manuela Mcdaniel PA-C 06/17/2014 09:45 [facility] Manuela Mcdaniel PA-C Attention: Contact your local Clinic if further appointment detail needed. Your Goals/Additional instructions: Source: [facility] POWERCHART Document Id: [id number] S SOAKER Miscellaneous - Manuela Brewer - 06/01/2014 12:55 PM CST Ambulatory Discharge Medication List [facility] [address], [address] [place] [id number] Visit Information Name: CANDY GRULLON [facility] Number: [id number] Visit Date: 06/01/2014 12:55:09 Attending Provider: MANUELA BREWER PA-C Primary Care Provider: WILLEM SAEED RN, CODING SPECIALIST CANDY GRULLON has been given the following list of medications: Your Medications It is important to take your medications as directed. Use a pill box or chart to help remind you to take your medications. Please let your doctor or nurse know if you have problems taking your medications. Medication/Strength How to Take Indications/Special Instructions/Comments/Notes for Patient Medication Changes/Routing *albuterol (albuterol CFC free 90 mcg/inh inhalation aerosol) 2 puff(s), Inhalation, every 4 hours as needed for Shortness of breath / Wheezing ibuprofen (Advil) Oral, as needed * You have let us know that you are not taking this medication as listed. Please talk with your primary care provider or the health care provider who prescribed the medication as soon as possible. Stop Taking the Following Medications: Medication list as of 06-01-14 12:55 Attention: If you have any medications at [...] Electronically Signed By: MANUELA BREWER PA-C Signed On:01-JUN-2014 12:55:07 Additional Information: Source: [facility] POWERCHART Document Id: [id number] S SOAKER Miscellaneous - Magda Barrera L.P.N. 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 Grain Farmer Intake/History Entered On: 06/01/2014 8:04 HIDES SOAKER Performed On: 06/01/2014 8:02 HIDES SOAKER by MAGDA BARRERA LPN Intake Chief Complaint : Patient here for recheck on left knee, had an Left knee arthroscopy done 03-19-12,has had pain since last November, no known injury, pain 12/31 Height : 161 cm(Converted to: 5 ft 3 inch(es), 63 inch(es)) MAGDA BARRERA LPN - 06/01/2014 8:02 HIDES SOAKER General Info Information Given By : Patient Preferred Communication Mode : Verbal Languages : Lithuanian Is Patient Female and 13-50 no hysterectomy : No MAGDA BARRERA LPN - 06/01/2014 8:02 HIDES SOAKER Subjective Pain Symptoms : Yes MAGDA BARRERA LPN 06/01/2014 8:02 HIDES SOAKER Pain Scale Pain Scale Verbal 0-10 : Open MAGDA BARRERA LPN 06/01/2014 8:02 HIDES SOAKER Pain Pain Assessment Grid Pain 1 Location : Knee Laterality : Left Intensity : 9 MAGDA BARRERA LPN 06/01/2014 8:02 HIDES SOAKER Dependent Habits Tobacco Use/Currently Using : Yes Exposure to Tobacco Smoke : Patient smokes Smoking Status : Current every day smoker MAGDA BARRERA LPN 06/01/2014 8:02 HIDES SOAKER Tobacco Use Grid Type : Cigarettes Cigarette Use Packs/Day : 0.5 MAGDA BARRERA LPN 06/01/2014 8:02 HIDES SOAKER Caffeine Use Grid Caffeine Use : Current Type : Soft drinks Frequency : Daily MAGDA BARRERA LPN 06/01/2014 8:02 HIDES SOAKER Recreational Drug Use Grid Drug Use : None MAGDA BARRERA LPN 06/01/2014 8:02 HIDES SOAKER ID Screen Drug Resistant Organism : No Travel Within Last 21 Days : No MAGDA BARRERA LPN 06/01/2014 8:02 HIDES SOAKER Source: [employer] POWERCHART Document Id: [id number] HIDES SOAKER!38 S SOAKER documented in this encounter Plan of Treatment Not on filedocumented as of this encounter Visit Diagnoses Not on filedocumented in this encounter
--- OUTSIDE RECORDS SUMMARY | 2022-01-29 10:53 | XMS_ITS | Encounter Summary ---
:1970 Author Organization [facility] Address [address] [place] [address] Care Team Providers Name Role Phone Isabelle Henderson APRN, C.N.P. Primary Care Provider [phone] Encounter Details Date Type Department Care Team Description 05/28/2017 Orders Only Department of [facility] Isabelle Henderson For Screening For Cardiovascular Disorders (Primary Dx); MedicineChuy APRN, C.N.P. Screening Examination Diabetes Mellitus; [facility], [address] Screening Mammogram Average Risk Patient [facility] [address] [place] [address] [address] [phone] [place], [place] (Work) [phone] Social History Tobacco Use Types Packs/Day Years Used Date Smoking Tobacco: Every Day Sex Assigned at Date Recorded Not on file documented as of this encounter Plan of Treatment Not on filedocumented as of this encounter Visit Diagnoses Diagnosis Encounter For Screening For Cardiovascul ar Disorders - Primary Screening Examination Diabetes Mellitus Screening Mammogram Average Risk Patient documented in this encounter Care Teams Cargo Inspector Relationship Specialty Start Date End Date Isabelle Henderson APRN, C.N.P. PCP - General 10/05/16 08/17/17 documented as of this encounter
--- OUTSIDE RECORDS SUMMARY | 2022-01-29 10:53 | XMS_ITS | Encounter Summary ---
:1970 Author Organization [facility] Address [address] [place] [address] Care Team Providers Name Role Phone Mily Contreras APRN, C.N.P., D.N.P. Primary Care Provider Encounter Details Date Type Department Care Team Description 05/24/2018 Orders Only [facility] PCP [facility] MNT Mily Contreras, Screening Mammogram Breast Cancer; GILBERT, C.N.P., Screening Exam ination Diabetes Mellitus; D.N.P. Screening Lipid [address] [place] [address] Social History Tobacco Use Types Packs/Day Years Used Date Smoking Tobacco: Every Day Sex Assigned at Date Recorded Not on file documented as of this encounter Plan of Treatment Not on filedocumented as of this encounter Results BI Breast Screening Bilateral with Tomosynthesis (08/10/2020 7:46 AM CDT) Anatomical Region Laterality Modality Breast, Breast Imaging RST LOS, Breast Imaging ARZ [facility] Bilateral Mammography Imaging FLA [facility] Specimen (Source) Anatomical Collection Method Collection Time Re ceived Time Location / / Volume Laterality 08/10/2020 8:52 AM CDT Impressions 08/10/2020 8:55 AM CDT Negative. RECOMMENDATION: ??Annual Screening Mammo gram ASSESSMENT: ??BI-RADS: 1: Negative. Narrative 08/10/2020 8:55 AM CDT EXAM: ??BI BREAST SCREENING BILATERAL WITH TOMOSYNTHESIS Current study was evaluated with a Compu ter Aided Detection (CAD) system. INDICATION: ??Screening mammogram. COMPARISON: ??None, this is a baseline s creening exam. DENSITY: ??b. There are scattered areas of fibroglandular density. FINDINGS: ??No mammographic findings of malignancy. Procedure Note Narendra Guillen M.D. - 08/10/2020Format ting of this note might be different from the original. EXAM: BI BREAST SCREENING BILATERAL WITH TOMOSYNTHESIS Current study was evaluated with a Compu ter Aided Detection (CAD) system. INDICATION: Screening mammogram. COMPARISON: None, this is a baseline scr eening exam. DENSITY: b. There are scattered areas of fibroglandular density. FINDINGS: No mammographic findings of ma lignancy. IMPRESSION: Negative. RECOMMENDATION: Annual Screening Mammogr am ASSESSMENT: BI-RADS: 1: Negative. Julia Licea APRN.N.Gabriella., D.N.P. IMG BI PROCEDURES documented in this encounter Visit Diagnoses Diagnosis Screening Mammogram Breast Cancer Screening Examination Diabetes Mellitus Screening Lipid Screening Mammogram Breast Cancer documented in this encounter Care Teams Vacuum Pan Operator Relationship Specialty Start Date End Date Mily Contreras APRN, C.N.P., PCP - General Family Medicine 03/22/19 D.N.P. [address] [place] [address] documented as of this encounter
--- OUTSIDE RECORDS SUMMARY | 2022-01-29 10:53 | XMS_ITS | Encounter Summary ---
:1970 Author Organization [facility] Address [address] [place] [address] Care Team Providers Name Role Phone Vesta Collado P.A.-C., P.A. Primary Care Provider Yeny ricks Encounter Details Date Type Department Care Team Description 06/03/2019 Orders Only RST PCP [facility] MNT Vesta Collado, Screeni ng Mammogram Breast Cancer; Trupti, P.A. Screening Exam ination Diabetes Mellitus; Screening Lipid Social History Tobacco Use Types Packs/Day Years Used Date Smoking Tobacco: Every Day Cigarettes 1.5 25 S tarted: 1985 Smokeless Tobacco: Never Alcohol Use Standard Drinks/Week Comments Yes 0 (1 standard drink = 0.6 oz pure alcoho l) Sex Assigned at Date Recorded Not on file documented as of this encounter Plan of Treatment Scheduled Orders Name Type Priority Associated Diagnoses Order S chedule Glucose, Fasting Lab Routine Screening Examination Ex pected: 06/17/2019, Diabetes Mellitus Expires: 0 06/03/2022 Lipid Panel Lab Routine Screening Lipid Expected: , Expires: 2022 documented as of this encounter Visit Diagnoses Diagnosis Screening Mammogram Breast Cancer Screening Examination Diabetes Mellitus Screening Lipid documented in this encounter Care Teams Grease Press Helper Relationship Specialty Start Date End Date Vesta Collado P.A.-C., P.A. PCP - General 03/23/19 11/25/19 documented as of this encounter
--- OUTSIDE RECORDS SUMMARY | 2022-01-29 10:53 | XMS_ITS | Encounter Summary ---
:1970 Author Organization [facility] Address [address] [place] [address] Care Team Providers Name Role Phone Elsewhere, Pcp Primary Care Provider Unavailable Reason for Visit Reason Comments COVID Inquiry Encounter Details Date Type Department Care Team Description 03/23/2020 Clinical Communication Central Appointment [place] [facility] in [address] [address] Social History Tobacco Use Types Packs/Day Years Used Date Smoking Tobacco: Every Day Cigarettes 1.5 25 S tarted: 1985 Smokeless Tobacco: Never Alcohol Use Standard Drinks/Week Comments Yes 0 (1 standard drink = 0.6 oz pure alcoho l) Sex Assigned at Date Recorded Not on file documented as of this encounter Miscellaneous Notes Telephone Encounter - Analia Pinto - 03/23/2020 10:34 AM CST COVID DOS/PASS Screening What is the patient requesting?: COVID-19 Testing Only (End screening - follow local process) Plan: Endpoint recommendation: Testing indicated, sent patient to [facility] located at [address] You must call [phone] for an appointment time. Testing hours are Daily 9 am to 7 pm. When you arrive at the testing site: Remain in your vehicle and check-in by phone using the same appointment line number. and Please avoid using public transportation per CDC recommendation. If you do nothave personal transportation please self-quarantine until a personal transportation option is available. *Reminder if sending patient for testing in [facility] or [facility], an email notification is required. 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
--- OUTSIDE RECORDS SUMMARY | 2022-01-29 10:53 | XMS_ITS | Encounter Summary ---
:1970 Author Organization [facility] Address [address] [place] [address] Care Team Providers Name Role Phone Elsewhere, Pcp Primary Care Provider Unavailable Encounter Details Date Type Department Care Team Description 03/30/2020 [facility] - Julisa Vann [place] M.D. [address] [place] [address] [place], [place] [phone] (Wo rk) Social History Tobacco Use Types [...] documented as of this encounter Care Teams Molasses Preparer Relationship Specialty Start Date End Date Elsewhere, Pcp PCP - General Internal Medicine 11/26/19 documented as of this encounter
--- OUTSIDE RECORDS SUMMARY | 2022-01-29 10:53 | XMS_ITS | Encounter Summary ---
:1970 Author Organization [facility] Address [address] [place] [address] Care Team Providers Name Role Phone Elsewhere, Pcp Primary Care Provider Unavailable Reason for Visit Reason Comments COVID Nurse Line Encounter Details Date Type Department Care Team Description 07/07/2020 Clinical Communication Division of Aster Camejo COV ID Nurse Carolyn [facility] Internal Silva.Tami, R.N. [facility] [address] [place] [address], in [facility] [address] [place] [phone] [place] [address] (Work) [place] [address] Social History Tobacco Use Types Packs/Day Years Used Date Smoking Tobacco: Every Day Cigarettes 1.5 25 S tarted: 1985 Smokeless Tobacco: Never Alcohol Use Standard Drinks/Week Comments Yes 0 (1 standard drink = 0.6 oz pure alcoho l) Sex Assigned at Date Recorded Not on file documented as of this encounter Miscellaneous Notes Telephone Encounter - Aster Camejo M.S., R.N. - 07/07/2020 10:14 AM CDT Additional symptoms: more tired than usual COVID-19 Nurse Line Screening ASSESSMENT Region Select appropriate region: : [place] Age Pathway Select approprite pathway: : Adult Have you had close contact* with a person who has a LABORATORY CONFIRMED case of COVID-19 in the past 14 days?: Yes- provide quarantine instructions unless exceptions met. (Continue Screening) In the last 48 hours, have you had a fever* OR symptoms that are unrelated to a preexisting illness?: New headache Have you received a COVID-19 vaccine in the last 72 hours? : No vaccine received (Continue Screening) Do you have any of the following urgent symptoms?: No urgent symptoms noted (Continue Screening) Have you tested positive for COVID-19 in the last 45 days?: No (Continue Screening) Are ALL the following criteria met: age between 18 to 75 yrs, main symptom is a sore throat with duration of 24 hrs to 7 days, onset of sore throat not associated with new upper respiratory symptoms*? : No, COVID testing is recommended (End Screening) Symptom Onset Date of symptom onset: 07/04/20 Testing Recommendation Endpoint Is testing recommended? : Recommended to test PLAN Endpoint recommendation: Screening positive, testing indicated, advised to be swabbed for COVID-19 Only , sent to [facility] located at [address] You must schedule an appointment for testing at this location. Please call [phone] during the hours of 7 am to 6 pm (M-F) or 8 am to 4:00pm (Sat and Sun) for an appointment time. Testing hours are 8 am to 12 noon every day. When you arrive at the testing site: Remain in your vehicle and check-in by calling the number listed on the signage at the testing site or provided to you at the time you schedule your testing appointment. and Please avoid using public transportation per CDC recommendation. If you do not have personal transportat ion please self-quarantine until a personal transportation option is available. Care Points: -Wash hands frequently with soap and water for at least 20 seconds -If soap and water are not available, use a hand service trainer -Avoid touching your eyes, nose and mouth. -Clean and disinfect high-touch surfaces routinely. -Wear a mask over your nose and mouth. A cloth face cover is not a substitute for social distancing -Continue to keep about 6 feet between yourself and others. -Avoid public areas and public transportation. -Find new ways to connect with family and friends, get support and share feelings. -Seek emergent care if any of the following occur Trouble breathing Bluish lips or face Persistent pain or pressure in the chest New confusion or inability to rouse. -Notify your regular care provider of any new or worsening symptoms. Symptomatic Carepoints: Separate yourself from others and stay in a specific sick room if able. Avoid sharing personal or household items. Rest. Hydrate. Take Acetaminophen/Ibuprofen as needed to control fever and muscles aches. Use over the counter medications as needed for other symptoms. ExposureCarepoints: Continue to quarantine for 14 days from your last known exposure to someone with a laboratory confirmed case of COVID-19 regardless of a negative test result unless otherwise directed. Testing is recommended if you become symptomatic at any point. Education: Patient/caregiver able to teach back Patient agreeable to plan of care: Yes The following references were used: [facility] novel coronavirus (COVID- 19) resources documented in this encounter Plan of Treatment Not on filedocumented as of this encounter Visit Diagnoses Not on filedocumented in this encounter Care Teams Plant Controls Specialist Relationship Specialty Start Date End Date Elsewhere, Pcp PCP - General Internal Medicine 11/26/19 documented as of this encounter
--- OUTSIDE RECORDS SUMMARY | 2022-01-29 10:53 | XMS_ITS | Encounter Summary ---
:1970 Author Organization [facility] Address [address] [place] [address] Care Team Providers Name Role Phone Mily Contreras APRN, C.N.P., D.N.P. Primary Care Provider Reason for Referral MRI/CAT/PET Scan (Routine) - Closed Specialty Diagnoses / Procedures Referred By Contact Refer red To Contact Radiology Diagnoses Primary Osteoarthritis Elbow Left Destiney Llamas M.B.BCarineS. [place] Procedures MR Elbow Left without and with IV Contrast [place] MRI UPR EXT JOINT WO/W CNTRST HC MRI UPR EXT JOINT WO/W CNTRST [place] MRI UPR EXT JOINT WO/W CNTRST [address] [place] [address] Referral ID Status Reason Start Date Expiration Date Visits Requ ested Visits Authorized [id number] Closed 06/26/2018 06/26/2019 1 1 CONSULTANT Outpatient (Routine) - Closed Specialty Diagnoses / Procedures Referred By Contact Refer red To Contact Diagnoses Primary Osteoarthritis Elbow Left Destiney Llaams M.B.B.S. [place] Procedures NM Joint Scan [place] BONE/JOINT IMAGING MULT AREAS HC BONE/JOINT IMAGING MULT AREAS [place] BONE/JOINT IMAGING MULT AREAS [address] [place], [place] [address] Referral ID Status Reason Start Date Expiration Date Visits Requ ested Visits Authorized [id number] Closed 06/26/2018 06/26/2019 6 6 CONSULTANT Encounter Details Date Type Department Care Team Description 06/26/2018 Orders Only Division of Destiney Llamas, Primary Osteo arthritis Rheumatology in [place] Elbow Left [place], [place] [address] [place] [address] [phone] Social History Tobacco Use Types Packs/Day Years Used Date Smoking Tobacco: Every Day Cigarettes 1.5 25 S tarted: 1985 Smokeless Tobacco: Never Alcohol Use Standard Drinks/Week Comments Yes 0 (1 standard drink = 0.6 oz pure alcoho l) Sex Assigned at Date Recorded Not on file documented as of this encounter Plan of Treatment Not on filedocumented as of this encounter Results MR Elbow Left without and with IV Contrast (06/27/2018 2:52 PM DATA CONSULTANT) Anatomical Region Laterality Modality Upper Extremity, Elbow, Musculoskeletal RST LOS, Left Magnetic Resonance Musculoskeletal ARZ LOS, Muskuloskeletal FLA LOS Specimen (Source) Anatomical Collection Method Collection Time Re ceived Time Location / / Volume Laterality 06/27/2018 2:39 PM DATA CONSULTANT Impressions 06/27/2018 3:22 PM DATA CONSULTANT IMPRESSION: ?? 1. Findings compatible with acute on chr onic medial and lateral epicondylitis. 2. No findings to suggest inflammatory a rthritis in the left elbow. Narrative 06/27/2018 3:22 PM DATA CONSULTANT EXAM: ??MR ELBOW LEFT WITHOUT AND [...] a rthritis in the left elbow. Destiney Peña IMLionel MRI PROCEDURES NM Joint Scan (06/27/2018 11:59 AM DATA CONSULTANT) Anatomical Region Laterality Modality Joint, Nuclear Medicine RST LOS, Nuclear Medicine ARZ N/A Nuclear Medicine LOS, Nuclear Medicine FLA LOS Specimen (Source) Anatomical Collection Method Collection Time Re ceived Time Location / / Volume Laterality 06/27/2018 12:12 PM DATA CONSULTANT Impressions 06/27/2018 12:29 PM DATA CONSULTANT IMPRESSION: ??Mild scattered uptake about the left lateral forefoot, right femoral trochanteric bursa and left knee suprapatellar synovium; favor degenerative process. Narrative 06/27/2018 12:29 PM DATA CONSULTANT EXAM: ??NM JOINT SCAN RADIOPHARMACEUTICAL/MEDS: Route: intravenous [...] suprapatellar synovium; favor degenerative process. 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 [address] [place] [phone] documented as of this encounter
--- OUTSIDE RECORDS SUMMARY | 2022-01-29 10:53 | XMS_ITS | Encounter Summary ---
:1970 Author Organization [facility] Address [address] [place] [address] Care Team Providers Name Role Phone Mily Contreras APRN, C.N.P., D.N.P. Primary Care Provider Reason for Visit Reason Onset Date Comments Results 06/26/2018 Encounter Details Date Type Department Care Team Description 06/26/2018 Clinical Communication Division of Diane Shannon, Results Rheumatology in [place], [place] [address] [place] [address] [place] [address] [phone] Social History Tobacco Use Types Packs/Day Years Used Date Smoking Tobacco: Every Day Cigarettes 1.5 25 S tarted: 1985 Smokeless Tobacco: Never Alcohol Use Standard Drinks/Week Comments Yes 0 (1 standard drink = 0.6 oz pure alcoho l) Sex Assigned at Date Recorded Not on file documented as of this encounter Miscellaneous Notes Telephone Encounter - Diane Shannon, R.N. - 06/26/2018 11:25 AM CST INFORMATION DISCUSSED Spoke with patient and relayed the information from Dr. Llamas. She would like to proceed with the imaging and states that L elbow is worse. She also asked to have her injection appointment moved to Sunday, so she was then transferred to the appointment desk. PLAN Disposition/Recommendation: provider notified Education: patient/caller able to teach back Caller agreeable to plan of care: yes The following references were used: nursing clinical judgement [employer] Telephone Encounter - Diane Shannon R.N. - 06/26/2018 11:[address] Llamas- ?? Please let patient know, I reviewed her x-rays. ??I see predominantly degenerative changes and bone spurs. ??I would like to pursue some additional imaging, to conclusively exclude the possibility of an inflammatory arthropathy. ??This includes a joint scan, and MRI of the elbow. ??Please check if theleft elbow is worse in comparison to the right, and I will schedule it for the more symptomatic side. [employer] documented in this encounter Plan of Treatment Not on filedocumented as of this encounter Visit Diagnoses Not on filedocumented in this encounter Care Teams Adjustment Clerk Relationship Specialty Start Date End Date Mily Contreras APRN, C.N.P., PCP - General Family Medicine 03/22/19 D.N.P. [address] [place] [address] documented as of this encounter
--- NOTE | 2022-01-29 10:54 | CRLHL7_ITS ---
For Patients: As a result of the Century Cures Act, medical imaging exams and procedure reports are released immediately into your electronic medical record. You may view this report before your referring provider. If you have questions, please contact your health care provider. INDICATION: Leg pain and swelling. TECHNIQUE: Ultrasound venous duplex lower right extremity. Compression venous exam was performed using tidwell-scale, color Doppler, and spectral Doppler analysis. COMPARISON: None. FINDINGS: Deep veins: Sonographic imaging demonstrates the right common femoral, deep femoral, femoral, popliteal, posterior tibial and the contralateral right common femoral veins to be fully compressible with normal color Doppler blood flow. Superficial veins: Greater saphenous vein is fully compressible. Popliteal cyst measuring 4.7 x 1.3 x 4.0 centimeters. IMPRESSION: No evidence of deep venous thrombus. Dictated by Deven Ahuja MD @ 01/29/2022 12:23:31 PM (Electronically Signed)
--- OUTSIDE RECORDS SUMMARY | 2022-01-29 10:54 | XMS_ITS | Encounter Summary ---
:1970 Author Organization [facility] Address [address] [place] [address] Care Team Providers Name Role Phone Unavailable Primary Care Provider Unavailable Encounter Details Date Type Department Care Team Description 04/02/2012 Hospital Encounter HX NO MAPPING Manuela Brewer P.A.- C. Social History Tobacco Use Types Packs/Day Years Used Date Smoking Tobacco: Never Assessed Sex Assigned at Date Recorded Not on file documented as of this encounter Last Filed Vital Signs Vital Sign Reading Time Taken Comments Blood Pressure 132/82 04/02/2012 10:18 AM TOOL DISTRIBUTOR Pulse - - Temperature - - Respiratory Rate 20 04/02/2012 10:18 AM TOOL DISTRIBUTOR Oxygen Saturation - - Inhaled Oxygen Concentration - - Weight - - Height - - Body Mass Index - - documented in this encounter Medications at Time of Discharge Medication Sig Dispensed Refills Start Date End Date IBUPROFEN ORAL Take by mouth as needed. 0 011 documented as of this encounter Consult Notes Manuela Brewer - 04/02/2012 10:13 AM CST [id number] CHIEF COMPLAINT/REASON FOR VISIT Ms. Grullon is a pleasant 41-year-old female who is status post a left knee arthroscopy, loose body excision, as well as chondroplasty of some degenerative joint disease. HISTORY OF PRESENT ILLNESS At this point in time, the patient is doing fairly well. She does not have too many questions. PHYSICAL EXAM On examination, the incisions are healing well with no evidence of infection. IMPRESSION/REPORT/PLAN Ms. Grullon is a pleasant 41-year-old female status post left knee arthroscopy. The patient is doing fairly well. We talked about the importance of activity modification. She was given a note for work today. We also went over the notes for the procedure and she is understanding what was performed inc luding the moderate degenerative findings of the case and the implications of these findings. We talked about glucosamine and chondroitin sulfate supplementation as well as the importance of activity modification, icing, isometric quadriceps strengthening activities, and various oral analgesics. She will follow-up in one month's time to ensure that things are progressing satisfactorily and if she is not making headway we may consider Supartz injections, but hopefully she will be doing well and she can always call and cancel the visit if she is doing just splendid. Manuela Brewer P.A.-C./aysha Electronically Signed By: MANUELA BREWER PA-C On: 04/09/2012 02:13 PM Source: [facility] [email or web address] Document Id: [id number] DISTRIBUTOR documented in this encounter Miscellaneous Notes Miscellaneous - Manuela Brewer - 04/02/2012 5:50 PM CST Ambulatory Patient Summary [address] [address] Visit Information Name: CANDY GRULLON [facility] Number: [id number] Current Date: 04/02/2012 17:50:17 Physicians Attending Provider: MANUELA BREWER PA-C Primary Care Provider: WILLEM SAEED RN, GUEST ROOM INSPECTOR Your Medications Here is a list of your medications. It is important to take your medications as directed. Use a pillbox or chart to help remind you to take your medications. Please let your doctor or nurse know if you have problems taking your medications. Medication/Strength Dose Route Frequency Indications/Special Instructions/Comments ibuprofen (Advil) Oral as needed Attention: If you have any medications at home that are not on this list, DO NOT take them until youcontact your provider for clarification. Your Allergies & Intolerances Substance Reaction Symptoms Category Comments Demerol HCl Drug hydrocodone-acetaminophen Drug Your Problem List Problem Status Onset Comments Reflux Active 07/05/2005 History of - anxiety state Active 06/30/2007 Nicotine dependence Active 1982 05/31/11 date of onset unknown Your Upcoming Appointments Date Time Location Reason Provider 05/07/2012 08:30 [facility] Spec Clin follow up L Manuela Nazario PA-C Your Goals/Additional instructions: Source: [facility] [employer] Document Id: [id number] DISTRIBUTOR Miscellaneous - Manuela Brewer - 04/02/2012 5:50 PM CST Ambulatory Depart Summary [facility] Specialty [address] [address] Visit Information Name: CANDY GRULLON [facility] Number: [id number] Visit Date: 04/02/2012 17:50:16 Attending Provider: MANUELA BREWER PA-C Primary Care Provider: WILLEM SAEED RN, GUEST ROOM INSPECTOR CANDY GRULLON has been given the following list of medications: Your Medications It is important to take your medications as directed. Use a pill box or chart to help remind you to take your medications. Please let your doctor or nurse know if you have problems taking your medications. Medication/Strength Dose Route Frequency Indications/Special Instructions/Comments ibuprofen (Advil) Oral as needed Attention: If you have any medications at home that are not on this list, DO NOT take them until youcontact your provider for clarification. Additional Information: Source: [facility] [employer] Document Id: [id number] DISTRIBUTOR Miscellkatie - Manuela Brewer - 04/02/2012 10:28 AM CST Return to Work Status Return to Work Status Entered On: 04/02/2012 10:29 TOOL DISTRIBUTOR Performed On: 04/02/2012 10:28 TOOL DISTRIBUTOR by MANUELA BREWER PA-C Return to Work Status Work Status Comment : Off work through 10-Apr-2012. May return to work as of 11-Apr-2012. MANUELA BREWER PA-C - 04/02/2012 10:28 TOOL DISTRIBUTOR Source: [facility] [employer] Document Id: [id number] DISTRIBUTOR Miscellaneous - Zaida Miranda RClinton - 04/02/2012 10:18 AM TOOL DISTRIBUTOR Adult Tear Down Matcher Intake/History Adult Tear Down Matcher Intake/History Entered On: 04/02/2012 10:21 TOOL DISTRIBUTOR Performed On: 04/02/2012 10:18 TOOL DISTRIBUTOR by ZAIDA MIRANDA cement finisher helper Chief Complaint : Left knee arthroscopy 2 weeks ago. Knee is sore. It feels much better than it did prior to surgery but still sore. Temperature Core : 36.6C(Converted to: 97.9DegF) Respiratory Rate : 20/min Systolic Blood Pressure : 132mmHg Diastolic Blood Pressure : 82mmHg NIBP Mean : 99mmHg ZAIDA MIRANDA RN - 04/02/2012 10:18 TOOL DISTRIBUTOR General Info Information Given By : Patient Preferred Communication Mode : Verbal Languages : Surinamese ZAIDA MIRANDA RN - 04/02/2012 10:18 TOOL DISTRIBUTOR Subjective Pain Symptoms : Yes ZAIDA MIRANDA RN - 04/02/2012 10:18 TOOL DISTRIBUTOR Pain Pain Assessment Grid Pain 1 Laterality : Left Time Pattern : Chronic Onset : Gradual ZAIDA MIRANDA RN - 04/02/2012 10:18 TOOL DISTRIBUTOR Dependent Habits Tobacco Use/Currently Using : Yes Tobacco Use/Advised to Quit : Yes Exposure to Tobacco Smoke : Patient smokes Smoking Status : Current every day smoker ZAIDA MIRANDA RN - 04/02/2012 10:18 TOOL DISTRIBUTOR Tobacco Use Grid Type : Cigarettes Cigarette Use Packs/Day : 0.5 ZAIDA MIRANDA RN - 04/02/2012 10:18 TOOL DISTRIBUTOR Caffeine Use Grid Caffeine Use : Current Type : Soft drinks Frequency : Daily ZAIDA MIRANDA RN - 04/02/2012 10:18 TOOL DISTRIBUTOR Recreational Drug Use Grid Drug Use : None ZAIDA MIRANDA RN - 04/02/2012 10:18 TOOL DISTRIBUTOR Allergy Allergies (Active) Demerol HCl Estimated Onset Date: Unspecified ; Created By: WADE DAIGLE LPN; Reaction Status: Active ; Category: Drug ; Substance: Demerol HCl ; Type: Allergy ; Updated By: WADE DAIGLE LPN;Reviewed Date: 04/02/2012 10:16 TOOL DISTRIBUTOR hydrocodone-acetaminophen Estimated Onset Date: Unspecified ; Created By: MICHELLE JOHNSON RN; Reaction Status: Active ; Category: Drug ; Substance: hydrocodone-acetaminophen ; Type: Allergy ; Severity: Severe ; Updated By: MICHELLE JOHNSON RN; Source: Patient ; Reviewed Date: 04/02/2012 10:16 TOOL DISTRIBUTOR Source: [facility] POWERCHART Document Id: [id number] DISTRIBUTOR documented in this encounter Plan of Treatment Not on filedocumented as of this encounter Visit Diagnoses Not on filedocumented in this encounter
--- OUTSIDE RECORDS SUMMARY | 2022-01-29 10:54 | XMS_ITS | Encounter Summary ---
:1970 Author Organization [facility] Address [address] [place] [address] Care Team Providers Name Role Phone Unavailable Primary Care Provider Unavailable Encounter Details Date Type Department Care Team Description 04/02/2012 Hospital Encounter HX NO MAPPING Lars Gaines, P.A.- C. Social History Tobacco Use Types [...]
--- OUTSIDE RECORDS SUMMARY | 2022-01-29 10:54 | XMS_ITS | Encounter Summary ---
:1970 Author Organization [facility] Address [address] [place] [address] Care Team Providers Name Role Phone Unavailable Primary Care Provider Unavailable Encounter Details Date Type Department Care Team Description 02/28/2012 Hospital Encounter HX [facility] ORTHO Zackary Pro ra, R.N. [address] [place], [place] [address] Social History Tobacco Use Types Packs/Day Years Used Date Smoking Tobacco: Never Assessed Sex Assigned at Date Recorded Not on file documented as of this encounter Medications at Time of Discharge Medication Sig Dispensed Refills Start Date End Date IBUPROFEN ORAL Take by mouth as needed. 0 011 documented as of this encounter Miscellaneous Notes Miscellaneous - Zoey Pro, R.N. - 02/28/2012 12:00 AM CST [id number] [address] [facility] l [address] [place] [address] SURGERY SCHEDULING CHECKLIST - Orthopedic Surgery* Patient Name: Candy Grullon Date of : 1970 Gender: female Patient Phone numbers: [phone] (home) Best Phone # to be contacted at: same as above BMI: There is no height or weight on file to calculate BMI. SURGERY DATE: Cancelled per pt, she is having it done in on 03/19 instead [facility] 03/01/12Surgeon: Ciro Michaud MDAnesthesia: Choice Procedure as written in on Consent: left knee arthroscopy, partial menisectomy PROCEDURE:Aarthroscopic Meniscectomy - KNEE SCOPE,MED/LAT MENISECTOMY - [id number] Surgeon Time: 40 minutes Diagnosis: left knee meniscus tear Pre-Op MD: Chuy Shipley [facility]- pt will schedule own preop Latex Allergy: No Work Comp: NO SPECIAL EQUIPMENT/SPECIAL INSTRUCTION Special Equipment needed:n/a Special Instructions/Prep: n/a Radiology Needs: None Xray location: [facility] date: 02/23/12 OT Post-Op appt needed: NO Metal Removal : No CPM Post-Op: no - Be sure MD has placed order on Order Set. Surgery Brochure given: Yes Clinic section complete - Please send this to the appropriate group(s). Back Case - fitted for back brace: {YES NO:671607} {Press DEL vasquez - if not Knee Manipulation:720942} If OT appt needed - setup one hour after clinic post-op appt - Total Joint class scheduled: Date Post-op appt made: {GAB LUCERO ORTHO POST-OP APPT:732382} Assembler Gold Frame requested: {SENIOR SSIS DEVELOPER YES/NO:786920} DISCHARGE PLANNING ASSESSMENT: Plan after Discharge: {GAB LUCERO DISCHARGE PLAN:741428} How are you getting home upon discharge from medical center? Social Service concerns: {Yes /No default.:671828::No} PATIENT NAME: Candy Grullon DATE: February 28, 2012 DATE OF :1970 BMI: There is no height or weight on file to calculate BMI. ANESTHESIA Any possibility you could be ? {YES NO:200142} LMP: Do you have a diagnosis of sleep apnea?{YES NO:287494} If yes, do you use a CPAP or BiPAP machine? {YES NO:995364} Do you have a history of snoring? {YES NO:311985} Do you have a history of ceasing breathing while sleeping? {YES NO:123213} Have you been told that it is difficult to place a breathing tube in your airway (intubate)? [facility]} Do you or a family member have a history of high fever after anesthesia (malignant hyperthermia)? {[facility] NEVER HAD SURGERY:110168} Do you have a history of severe nausea and vomiting after anesthesia? {[facility] NEVER HAD SURGERY:624394} Do you have motion sickness? {YES NO:737191} Do you have a history of severe reaction to anesthesia? {[facility] NEVER HAD SURGERY:939588} Do you have jain or other objections to blood transfusion? {YES NO PAT:877369} { Press delete if not required - [facility] LIST:722662} Completed by: [facility] GUZMANHXTR[facility]XRTFSYS Document Id: [id number] documented in this encounter Plan of Treatment Not on filedocumented as of this encounter Visit Diagnoses Not on filedocumented in this encounter
--- OUTSIDE RECORDS SUMMARY | 2022-01-29 10:54 | XMS_ITS | Encounter Summary ---
:1970 Author Organization [facility] Address [address] [place] [address] Care Team Providers Name Role Phone Unavailable Primary Care Provider Unavailable Encounter Details Date Type Department Care Team Description 03/19/[address] [facility] Craig Michaud M.D. [address] [place] [address] (Wo rk) Social History Tobacco Use Types Packs/Day Years Used Date Smoking Tobacco: Never Assessed Sex Assigned at Date Recorded Not on file documented as of this encounter Last Filed Vital Signs Vital Sign Reading Time Taken Comments Blood Pressure 118/58 03/19/2012 12:33 PM [employer] Pulse 89 03/19/2012 12:33 PM [employer] Temperature - - Respiratory Rate 16 03/19/2012 11:15 AM [employer] Oxygen Saturation - - Inhaled Oxygen Concentration - - Weight - - Height 161 cm (5' 3.39) 03/19/2012 9:08 AM [employer] Body Mass Index - - documented in this encounter Medications at Time of Discharge Medication Sig Dispensed Refills Start Date End Date IBUPROFEN ORAL Take by mouth as needed. 0 011 documented as of this encounter Procedure Notes Rosalina Wesley, R.N. - 03/19/2012 9:08 AM CST Preprocedure Checklist Preprocedure Checklist Entered On: 03/19/2012 9:15 [employer] Performed On: 03/19/2012 9:08 [employer] by ROSALINA WESLEY RN Checklist Last Fluid Intake : 03/18/2012 23:00 [employer] Last Food Intake : 03/18/2012 20:00 [employer] Status : Patient denies ROSALINA WESLEY RN - 03/19/2012 9:08 [employer] Surgery Prep Grid Contacts/Glasses Removed : Yes Preop Scrub Night Prior to Surgery : Yes Prosthesis Removed : NA Surgical Prep Verified : Yes Tampon Removed : NA Wearing Patient Gown : Yes Voided building components designer to procedure : Yes Dentures Removed : NA Hairpins/Hairpiecies Removed : NA Hearing Aid Removed : NA Home Prep Complete : NA Jewelry/Piercing Removed : NA Makeup/Nail Luxembourger Removed : NA Oral Hygiene : NA Preop Scrub AM of Surgery : Yes ROSALINA WESLEY RN - 03/19/2012 9:08 [employer] Surgical Preparation : N/A ROSALINA WESLEY RN - 03/19/2012 9:08 [employer] Patient Rights Grid Blood Consent Signed : NA Surgical/Procedure Consent Signed : Yes ROSALINA WESLEY RN - 03/19/2012 9:08 [employer] Family Location : mom and sister waiting in hospital ROSALINA WESLEY RN - 03/19/2012 9:08 [employer] Checklist II Patient Safety Grid Allergy Band on and Verified : Yes ID Band on and Verified : Yes Preop Medications Sent With Patient : NA Relevant Images in Medical Record : Yes Review of Labs : NA Procedure/Site Verified by Patient/Family : Yes Procedure/Site Verified by RN : Yes Procedure/Site Verified by Physician : Yes Type & Screen/Type & Cross Completed : NA Anesthesia Consult : Yes Band on for Limb Alert : NA Blood Band on and Verified : NA Current ECG in Medical Record : NA Current H&P in Medical Record : Yes Implants Verified : NA Medication Reconciliation on Chart : Yes Pacemaker/AICD Verified : ROSALINA PHELPS RN - 03/19/2012 9:08 [employer] RN Who Verified Site : ROSALINA WESLEY RN Physician Who Verified Site : CIRO MICHAUD MD, GWYNNE A RN - 03/19/2012 9:08 [employer] GINGER Screening Known Obstructive Sleep Apnea : No Uses Home CPAP/BiPAP : No Risk for Sleep Apnea : No ROSALINA WESLEY RN - 03/19/2012 9:08 [employer] GINGER Assessment Do you have high blood pressure or have you been told to take medication for high blood pressure? : No Frequency of Snoring : Rarely (1-2 times per year) Frequency of Gasping, Choking, Snorting : Never Neck Circumference (cm) : 42/43 Total Sleep Apnea Clinical Score : 5 Total Number of Historical Features : 0 ROSALINA WESLEY RN - 03/19/2012 9:08 [employer] Valuables/Belongings Valuables/Belongings Grid Valuables at Bedside Clothes, Patient Valuables : Pants, Shirt, Shoes ROSALINA WESLEY RN - 03/19/2012 9:08 [employer] Room Orientation/Facility Policy Reviewed : Yes Home Medication Disposition : None brought in with patient ILSA-ROSALINA JAMES RN - 03/19/2012 9:08 [employer] Education Preprocedure Education Grid Procedure Type : as above Education Topics : Anesthesia/Sedation, Plan of care Individuals Taught : Patient, Parent, Sibling Barriers to Learning : None evident Teaching Method : Explanation Teaching Evaluation : Verbalizes understanding ROSALINA WESLEY RN - 03/19/2012 9:08 [employer] Preop Holding Mode of Arrival : Ambulatory Preoperative Orders Complete : Yes ROSALINA WESLEY RN - 03/19/2012 9:08 [employer] Advance Directive Advanced Directives : Yes ROSALINA WESLEY RN - 03/19/2012 9:08 [employer] Vital Signs Temperature Core : 37.2C(Converted to: 99.0DegF) Peripheral Pulse Rate : 72/min Respiratory Rate : 18/min Systolic Blood Pressure : 129mmHg Diastolic Blood Pressure : 83mmHg NIBP Mean : 98mmHg SpO2 : 96% Oxygen Saturation Monitoring Frequency : Intermittent Oxygen Therapy : Room air Height : 161cm(Converted to: 5ft 3inch(es)) Height Source : Estimated Estimated Weight : 96.7kg Estimated Weight Conversion to Pounds : 212.74lb ROSALINA WESLEY RN - 03/19/2012 9:08 [employer] Allergy Allergies (Active) Demerol HCl Estimated Onset Date: Unspecified ; Created By: WADE DAIGLE LPN; Reaction Status: Active ; Category: Drug ; Substance: Demerol HCl ; Type: Allergy ; Updated By: WADE DAIGLE LPN;Reviewed Date: 03/06/2012 11:00 [employer] Preprocedural Pause Correct Patient Identity : Patient verbalizes self, Patient wristband ID, Family/responsible republican ID, Patient verbalizes Correct Procedure Site and Side : left knee arthroscopy with partial meniscectomy Correct Procedure Site/Side Verified By : Patient/responsible republican, Nurse, MD Site Marking : Yes Pre-Procedure Pause Verbal Confirm. of : Procedure, Site, Side, Patient Position, Patient ID ROSALINA WESLEY RN - 03/19/2012 9:08 [employer] Source: [employer] Document Id: [id number] [employer] documented in this encounter Nursing Notes Rosalina Wesley RCarineNCarine - 03/19/2012 9:01 AM CST Day Surgery Admission History/Asmt Adult Document Has Been Updated Day Surgery Admission History/Asmt Adult Entered On: 03/19/2012 9:07 [employer] Performed On: 03/19/2012 9:01 [employer] by ROSALINA WESLEY RN General Info Preferred Name : Candy Mode of Arrival : Ambulatory Accompanied By : Alone, Mother, Sibling Chief Complaint : left knee scope Preferred Communication Mode : Verbal Information Given By : Patient Languages : Tajik Status : Patient denies Have you received chemotherapy in last 48 hours? : No ROSALINA WESLEY RN - 03/19/2012 9:01 [employer] Allergy Allergies (Active) Demerol HCl Estimated Onset Date: Unspecified ; Created By: WADE DAIGLE LPN; Reaction Status: Active ; Category: Drug ; Substance: Demerol HCl ; Type: Allergy ; Updated By: WADE DAIGLE LPN;Reviewed Date: 03/06/2012 11:00 [employer] Anesth/Transfusion Anesthesia/Transfusions : Prior anesthesia ROSALINA WESLEY RN - 03/19/2012 9:01 [employer] ID Screen Drug Resistant Organism : No ILSAROSALINA WEISS - 03/19/2012 9:01 [employer] Nutrition Nutrition Risk Factors by History Adult : None Home Diet : Regular Feeding Ability : Complete independence Eating Difficulties : None Appetite : Excellent ILSAROSALINA WEISS - 03/19/2012 9:01 [employer] Home Environment Current Daily Living Assistance : None Living Situation : Home independently Home Equipment : None Sensory Deficits : None Mobility Assistance Prior to Admission : Independent Current Home Treatments : None Professional Skilled Services : None Special Services and Community Resources : None ILSAROSALINA WEISS - 03/19/2012 9:01 [employer] Dependent Habits Tobacco Use/Currently Using : Yes Tobacco Use/Advised to Quit : Yes Exposure to Tobacco Smoke : Patient smokes Smoking Status : Current every day smoker ROSALINA WESLEY - 03/19/2012 9:01 [employer] Tobacco Use Grid Type : Cigarettes Cigarette Use Packs/Day : 0.5 ROSALINA WESLEY - 03/19/2012 9:01 [employer] Alcohol Use : Yes ROSALINA WESLEY - 03/19/2012 9:01 [employer] Caffeine Use Grid Caffeine Use : Current Type : Soft drinks Frequency : Daily ROSALINA WESLEY - 03/19/2012 9:01 [employer] Recreational Drug Use Grid Drug Use : None ROSALINA WESLEY - 03/19/2012 9:01 [employer] AUDIT Tool How Often Do You Have A Drink : 2 to 3 times a week How Many Drinks in a Day When Drinking : 1 or 2 Six or More Drinks On One Occassion : Never Audit Phase 1 Score : 3 ROSALINA WESLEY - 03/19/2012 9:01 [employer] Psychosocial Adult Domestic Abuse Concerns : None ROSALINA WESLEY - 03/19/2012 9:01 [employer] Advance Directive Advanced Directives : Yes ROSALINA WESLEY - 03/19/2012 9:01 [employer] Educ Needs Patient/Family Education Needs : Plan of care ROSALINA WESLEY - 03/19/2012 9:01 [employer] Learning Style Preference Adult Grid Patient : Verbal explanation Family : Verbal explanation ROSALINA WESLEY RN - 03/19/2012 9:01 [employer] Education Preprocedure Education Grid Procedure Type : left knee scope with partial meniscectomy Education Topics : Anesthesia/Sedation, Plan of care Individuals Taught : Patient, Parent, Sibling Barriers to Learning : None evident Teaching Method : Explanation Teaching Evaluation : Verbalizes understanding ROSALINA WESLEY RN - 03/19/2012 9:01 [employer] Outpatient Assessment Procedural Respiratory : Respirations unlabored, Respiratory pattern regular, Breath sounds clear all lobes Procedural Cardiovascular : Heart rhythm regular Procedural Neurological : Alert, Oriented x 3, Gait steady Procedural Gastrointestinal : Abdomen non-tender and soft Procedural Genitourinary : Voiding, no difficulties Procedural Integumentary : Skin integrity intact Procedural Musculoskeletal : Activity tolerance without distress ROSALINA WESLEY RN - 03/19/2012 9:01 [employer] Psycho/Emotional Pain Symptoms : No Affect/Behavior : Calm, Cooperative, Appropriate ROSALINA WESLEY RN - 03/19/2012 9:01 [employer] Peripheral IV Peripheral IV Assess/Intervention Grid Peripheral IV #1 IV Activity : Start Number of Attempts : 4 ROSALINA WESLEY RN - 03/19/2012 9:51 [employer] Date of Insertion : 03/19/2012 [employer] IV Site : Hand Laterality : Left Catheter Size : 20 Catheter Type : Over the needle ROSALINA WESLEY RN - 03/19/2012 9:51 [employer] Site Condition : No complications Drainage Description : None Infiltration Score : 0 Phlebitis Score : 0 Flow/ Patency : No complications ROSALINA WESLEY RN - 03/19/2012 9:01 [employer] Regino Sensory Perception Regino : No impairment Moisture Regino : Rarely moist Activity Regino : Walks frequently Mobility Regino : No limitations Nutrition Regino : Excellent Friction and Shear Regino : No apparent problem Regino Score : 23 ROSALINA WESLEY RN - 03/19/2012 9:01 [employer] Hendrich II Fall Risk Confusion/Disorientation Hendrich : No Depression Fall Risk Hendrich : No Altered Elimination Fall Risk Hendrich : No Dizziness/Vertigo Fall Risk Hendrich : No Gender, Male Fall Risk Hendrich : No Prescribed Antiepileptics Hendrich : No Prescribed Benzodiazepines Hendrich : No Rising From Chair Fall Risk Hendrich : Able to rise in a single movement, no loss of balance with steps Fall Risk Score Rogelio II : 0 ILSAROSALINA WEISS RN - 03/19/2012 9:01 [employer] DC Needs Anticipated Discharge Date : 03/19/2012 [employer] Discharge To, Anticipated : Home independently Home Treatments, Anticipated : None Home Equipment, Anticipated : None Professional Skilled Services, Anticipated : None Special Serv & Comm Res, Anticipated : None Needs Assistance with Transportation : No Needs Assistance at Home Upon Discharge : No ROSALINA WESLEY RN - 03/19/2012 9:01 [employer] FLACC Face FLACC : No particular expression or smile Legs FLACC : Normal position or relaxed Activity FLACC : Lying quietly, normal position, moves easily Cry FLACC : No cry, awake or asleep Consolabillity FLACC : Content, relaxed FLACC Pain Scale Score : 0 ROSALINA WESLEY RN - 03/19/2012 9:01 [employer] Urinary Catheter Urinary Catheter Activity Type : Other: none ROSALINA WESLEY RN - 03/19/2012 9:08 [employer] Integumentary Integumentary Patient Stated Symptoms : None Skin Turgor : Elastic Skin Integrity : Intact Mucous Membrane Color : [place] Mucous Membrane Description : Moist Skin Color : Normal for ethnicity Skin Description : Dry Skin Temperature : Warm ROSALINA WESLEY RN - 03/19/2012 9:08 [employer] [facility] Document Id: [id number] [employer] documented in this encounter OR Notes Op Note - Ciro Michaud M.D. - 03/19/2012 12:00 AM CST [id number] PREOPERATIVE DIAGNOSIS: Right knee medial meniscus tear. POSTOPERATIVE DIAGNOSIS: Right knee medial meniscus tear, loose body and DJD. PROCEDURE: Right knee arthroscopy, partial medial meniscectomy, loose body removal and chondroplasty, medial femoral condyle and femoral trochlea. SURGEON: Ciro Michaud, M.D. ANESTHESIA: Spinal anesthesia. ESTIMATED BLOOD LOSS: Minimal. INDICATIONS: Candy is a 41-year-old woman who has been suffering with right knee pain. Despite conservative measures made no significant improvement in her symptoms. We discussed risks, benefits, alternatives to knee arthroscopy and meniscectomy as indicated with her; she understands these and desires to proceed with surgery. DESCRIPTION OF PROCEDURE: Patient is brought to the operating room, placed on the operating table inthe seated position, spinal anesthesia is smoothly induced. Then, placed in the supine position, tourniquet was placed around her left thigh followed by a leg gordon. The left leg was then prepped and draped in sterile fashion. Leg was then exsanguinated and tourniquet inflated to 300 mm/HG. An injection of 1% Lidocaine with Epinephrine was placed in the medial and lateral joint line. A small incision was made laterally, a trochar was advanced through the incision into the knee joint, the knee jointwas then filled with Saline. The patellofemoral joint was first visualized. She is noted to have a very tight patellofemoral joint but seemed to track reasonably well. There were some degenerative changes, Grade 2-B on the medial aspect of the femoral trochlea. The medial gutter was visualized, there were no loose bodies in this region seen. The medial compartment is then visualized. A small incisionwas made there. A probe was used to investigate. There was a loose body noted almost immediately, this is removed with a shaver. Then with the knee in flexion we were able to notice a 4-millimeter areaof cartilaginous defect far posteromedially, appeared to be in a nonweightbearing surface with the knee in extension. This is likely the area where the loose body had come from. There were Grade 2-B changes; otherwise, on the medial femoral condyle and these were debrided with the shaver removing the chondral flaps. The medial meniscus had appeared to have a tear to the posterior medial aspect and a punch was then used to remove this portion of the meniscus followed by a shaver to shave it to a smooth transition. The notch was visualized, the ACL and PCL noted to be intact. The lateral compartment is then visualized. She was noted to have no significant degenerative changes and no lateral meniscaltearing. The patellofemoral joint was again visualized and the shaver was used to remove the cartilaginous flaps from the medial side of the femoral trochlea. Once that was completed the knee was then suctioned out, filled with Marcaine. The incision was then closed using 4-0 Monocryl in interrupted fashion followed by Steri-Strips, a nonadherent dressing and an LUIS CARLOS bandage. Tourniquet was let down, the patient was then transferred to the recovery in good condition. Needle, instrument and sponge counts correct at the end of the case. Ciro Michaud M.D./katt Electronically Signed By: CIRO MICHAUD MD On: 04/09/2012 03:37 PM Source: [id number] Document Id: [id number] [employer] documented in this encounter Miscellaneous Notes Miscellaneous - Keisha Elmore, R.N. - 03/19/2012 12:33 PM CST Adult Postprocedure Assessment Document Has Been Updated Adult Postprocedure Assessment Entered On: 03/19/2012 12:42 [employer] Performed On: 03/19/2012 12:33 [employer] by KEISHA ELMORE RN Vital Signs Temperature Core : 36.5C(Converted to: 97.7DegF) Peripheral Pulse Rate : 89/min Systolic Blood Pressure : 118mmHg Diastolic Blood Pressure : 58mmHg NIBP Mean : 78mmHg BP Location : Right upper extremity SpO2 : 99% Oxygen Saturation Monitoring Frequency : Continuous Oxygen Therapy : Room air KEISHA ELMORE RN - 03/19/2012 12:33 [employer] General Level of Consciousness : Alert Orientation : Oriented x 3 Skin Color : Normal for ethnicity Skin Description : Dry Skin Temperature : Warm Pain Symptoms : No KESIHA ELMORE RN - 03/19/2012 12:33 [employer] FLACC Face FLACC : No particular expression or smile Legs FLACC : Normal position or relaxed Activity FLACC : Lying quietly, normal position, moves easily Cry FLACC : No cry, awake or asleep Consolabillity FLACC : Content, relaxed FLACC Pain Scale Score : 0 KEISHA ELMORE RN - 03/19/2012 12:33 [employer] Cardiovascular Nail Bed Color : [place] KEISHA ELMORE - 03/19/2012 12:33 [employer] Respiratory Anesthesia Type : Block, Spinal KEISHA ELMORE 03/19/2012 15:13 [employer] Respiratory Pattern : Regular Respirations : Unlabored All Lobes Breath Sounds : Clear KEISHA ELMORE - 03/19/2012 12:33 [employer] GI/ Nausea Symptoms : No KEISHA ELMORE - 03/19/2012 12:33 [employer] Integumentary Integumentary Patient Stated Symptoms : None Skin Turgor : Elastic Skin Integrity : Not intact Mucous Membrane Color : [place] Mucous Membrane Description : Moist Skin Color : Normal for ethnicity Skin Description : Dry Skin Temperature : Warm KEISHA ELMORE - 03/19/2012 12:33 [employer] Incision/Wound Incision/Wound Care Grid Activity : Assessed Type : Other: arthroscopy Location : Knee Laterality : Left Description : KEISHA Black 03/19/2012 12:33 [employer] Peripheral IV Peripheral IV Assess/Intervention Grid Peripheral IV #1 IV Activity : Discontinue Number of Attempts : 4 Date of Insertion : 03/19/2012 [employer] IV Site : Hand Laterality : Left Catheter Size : 20 Catheter Type : Over the needle Site Condition : No complications Drainage Description : None Infiltration Score : 0 Phlebitis Score : 0 KEISHA ELMORE - 03/19/2012 12:33 [employer] I&O Oral Intake : 200mL Other Intake : 50mL KEISHA ELMORE 03/19/2012 12:33 [employer] Neurologic Swallowing Difficulty/Aspiration Risk : None Extremity Movement : Equal Facial Symmetry : Symmetric Characteristics of Speech : Appropriate for age KEISHA ELMORE 03/19/2012 12:33 [employer] Lower Extremity Nail Bed Color Feet Grid Left Foot : [place] Right Foot : [place] KEISHA ELMORE 03/19/2012 12:33 [employer] Capillary Refill Feet Grid Left Foot : < 2 seconds Right Foot : < 2 seconds KEISHA ELMORE Susan 03/19/2012 12:33 [employer] NV Lower Extremity Color Grid Left : [place] Right : [place] KEISHA ELMORE 03/19/2012 12:33 [employer] NV Lower Extremity Temperature Grid Left : Warm Right : Warm KEISHA ELMORE 03/19/2012 12:33 [employer] Lower Extremity Peripheral Pulses Grid Popliteal Pulse, Left : 2+ Normal Popliteal Pulse, Right : 2+ Normal Posttibial Pulse, Left : 2+ Normal Posttibial Pulse, Right : 2+ Normal Dorsalis Pedis Pulse, Left : 2+ Normal Dorsalis Pedis Pulse, Right : 2+ Normal KEISHA ELMORE 03/19/2012 12:33 [employer] Lower Extremity Sensation NV Grid Medial/Lateral Surfaces Sole of Left Foot : Intact Medial/Lateral Surfaces Sole of Right Foot : Intact Web Space Between Great and Second Toe Left Foot : Intact Web Space Between Great and Second Toe Right Foot : Intact KEISHA ELMORE 03/19/2012 12:33 [employer] Lower Extremity Strength NV Grid Plantar Flexion Left Foot : Zero 0 Plantar Flexion Right Foot : Zero 0 Dorsiflex Foot/Extend Toes Left : Zero 0 Dorsiflex Foot/Extend Toes Right : Zero 0 YOANDYKEISHA 03/19/2012 12:33 [employer] Upper Extremity Nail Bed Color Hands Grid Left Hand : [place] Right Hand : [place] KEISHA ELMORE 03/19/2012 12:33 [employer] Capillary Refill Hand Grid Left Hand : < 2 seconds Right Hand : < 2 seconds YOANDY KEISHA Susan 03/19/2012 12:33 [employer] Upper Extremity Color Grid Left : [place] Right : [place] KEISHA ELMORE 03/19/2012 12:33 [employer] Upper Extremity Temperature Grid Left : Warm Right : Warm KEISHA ELMORE 03/19/2012 12:33 [employer] NV Upper Extremity Pulses Grid Radial Pulse, Left : 2+ Normal Radial Pulse, Right : 2+ Normal KEISHA ELMORE 03/19/2012 12:33 [employer] PARSAP Activity Status : Moves 4 extremities voluntarily or on command Dressing : Dry and clean Respiratory Component : Able to deep breathe and cough freely Pain : Pain free Circulation Component : BP 20% of preanesthetic level Ambulation : Able to stand up and walk straight Consciousness : Fully awake Fasting and Feeding : Able to drink fluids Oxygen Saturation - Sedation : Can maintain > 92% on room air Urine Output, PARSAP : Not assessed PARSAP Score : 20 KEISHA ELMORE 03/19/2012 12:33 [employer] Johnson Johnson Agitation Sedation Scale (RASS) : Alert and calm RASS Score : 0 KEISHA ELMORE 03/19/2012 12:33 [employer] Regino Sensory Perception Regino : No impairment Moisture Regino : Rarely moist Activity Regino : Walks frequently Mobility Regino : No limitations Nutrition Regino : Adequate Friction and Shear Regino : No apparent problem Regino Score : 22 KEISHA ELMORE RN - 03/19/2012 12:33 [employer] Hendrich II Fall Risk Confusion/Disorientation Hendrich : No Depression Fall Risk Hendrich : No Altered Elimination Fall Risk Hendrich : No Dizziness/Vertigo Fall Risk Hendrich : No Gender, Male Fall Risk Hendrich : No Prescribed Antiepileptics Hendrich : No Prescribed Benzodiazepines Hendrich : Yes Rising From Chair Fall Risk Hendrich : Pushes up, successful in one attempt Fall Risk Score Hendrich II : 2 KEISHA ELMORE RN - 03/19/2012 12:33 [employer] Education General Patient Education [employer] Topics : Activity limitations/expectations, Discharge instructions/Medication list, Medication dosage, route, scheduling, Pain Management, Physical limitations, Printed materials, Safety, fall, Smokingcessation, Use of pain scale(s), When to call health care provider Individuals Taught : Patient Barriers to Learning : None evident Teaching Method : Explanation, Printed materials Teaching Evaluation : Verbalizes understanding KEISHA ELMORE RN - 03/19/2012 12:33 [employer]PER[employer] Source[facility] Document Id: [id number] [employer]ION W[employer]HOUSE SUPERVISOR Miscellaneous - Guillermina White RClinton - 03/19/2012 12:20 PM CST Inpatient Patient Education The following Patient Education Materials have been given to the patient: Patient Education Materials: Custom Discharge Instructions - Adult (Custom) Custom [id number] Discharge Instructions (Adults)HOME CARE FOLLOWING Left knee arthroscopy with partial menisectomy Person(s) taught: Patient DIET: No Restrictions Eat a light meal and drink plenty of fluids. NAUSEA: There may be some nausea after your general anesthesia. If nausea is present, take it easy and try fluids such as tea, coke, 7-up, jello, and soup. If you receive a local anesthesia, nausea is usuallynot a problem. However, if you do experience nausea, follow the above instructions. DISCOMFORT: The amount of discomfort you should expect is unpredictable. If you are having more pain than can be controlled with Tylenol or with the prescription you may have received, it would be best to notify your physician. Ice packs to the affected area may be helpful in controlling the pain, as well as theswelling. Do not drive a car or consume alcoholic beverages within six hours of taking pain medication. If you have a prescription pain medication, take as directed on bottle label. DRAINAGE AND DRESSINGS: If your bandages become soaked with bright red blood, place another dressing pad over your bandages. (DO NOT remove the original bandage.) Call your physician for further instruction. A small amount of blood is to be expected; don't be alarmed. NOTIFY YOUR DOCTOR IF: a) Bleeding is heavy b) Persistent nausea and vomiting c) Excessive swelling d) Temperature over 100 e) Redness f) Increased pain ACTIVITY: As Tolerated, Other, See Special Instructions Do not become too tired. Be prepared to rest. SPECIAL INSTRUCTIONS: Apply ice to left knee for next 24 hours. Keep wound dry for the next 48 hours, after that time youcan remove the dressing and shower. DISCHARGE INSTRUCTIONS: For 48 hours after receiving general anesthesia your reactions are slower, you may be dizzy, nauseated, lightheaded, and/or have a headache or short term memory loss. Therefore: A. DON'T DRINK alcoholic beverages. B. DON'T DRIVE your car, operate machinery or power tools. C. DON'T MAKE any important decisions. D. You may resume your prescribed medications as directed. E. We strongly suggest you have a responsible adult with you the rest of today and also during the night for your protection and safety. MEDICATIONS - See Discharge Medication List FOLLOW-UP APPOINTMENTS: LAB: no labs ordered XRAY: no x ray ordered You have a follow up appointment on Sunday at 1030 am IF ANY PROBLEMS OR CONCERNS, PLEASE CONTACT YOUR DOCTOR OR CALL THE PATIENT ADVISORY NURSE AT [phone] OR EMERGENCY ROOM AT [phone], ext: [phone]. ext: surgical services [phone], med-surge [phone] Physician: with Lars SANCHES Office: You may receive a Customer Satisfaction survey in the mail from [employer]. If you receive this survey, we would ask that you take the time to complete it and return it. Your comments and suggestions are important to us; we are always looking for ways to improve the service we provide. Thank you for choosing [facility]. It was a pleasure to serve you. Source: [facility] Document Id: [id number] [employer] SUPERVISOR Miscellaneous - Keisha Elmore R.N. - 03/19/2012 12:05 PM CST Adult Postprocedure Assessment Document Has Been Updated Adult Postprocedure Assessment Entered On: 03/19/2012 12:17 [employer] Performed On: 03/19/2012 12:05 [employer]PER[employer]OR by KEISHA ELMORE RN Vital Signs Temperature Core : 36.2C(Converted to: 97.2DegF) (LOW) Peripheral Pulse Rate : 76/min Systolic Blood Pressure : 125mmHg Diastolic Blood Pressure : 71mmHg NIBP Mean : 89mmHg BP Location : Right upper extremity SpO2 : 98% Oxygen Saturation Monitoring Frequency : Continuous Oxygen Therapy : Room air KEISHA ELMORE RN - 03/19/2012 12:05 [employer] General Level of Consciousness : Alert Orientation : Oriented x 3 Skin Color : Normal for ethnicity Skin Description : Dry Skin Temperature : Warm Pain Symptoms : No KEISHA ELMORE RN - 03/19/2012 12:05 [employer]PER[employer]OR FLACC Face FLACC : No particular expression or smile Legs FLACC : Normal position or relaxed Activity FLACC : Lying quietly, normal position, moves easily Cry FLACC : No cry, awake or asleep Consolabillity FLACC : Content, relaxed FLACC Pain Scale Score : 0 KEISHA ELMORE RN - 03/19/2012 12:05 [employer]PER[employer]OR Cardiovascular Nail Bed Color : [place] Capillary Refill : Less than 2 seconds Antiembolism Device : Sequential Compression Device Antiembolism Device Laterality : Right KEISHA ELMORE RN - 03/19/2012 12:05 [employer] Respiratory Anesthesia Type : Block, Spinal KEISHA ELMORE RN - 03/19/2012 15:13 [employer] Airway Type : None Respiratory Pattern : Regular Respirations : Unlabored All Lobes Breath Sounds : Clear Oxygen Discontinuation : 03/19/2012 12:07 [employer]OR KEISHA ELMORE RN - 03/19/2012 12:05 [employer]PER[employer]OR Integumentary Integumentary Patient Stated Symptoms : None Skin Turgor : Elastic Skin Integrity : Not intact Mucous Membrane Color : [place] Mucous Membrane Description : Moist Skin Color : Normal for ethnicity Skin Description : Dry Skin Temperature : Warm KEISHA ELMORE - 03/19/2012 12:05 [employer]PER[employer]OR Incision/Wound Incision/Wound Care Grid Activity : Assessed Type : Other: arthroscopy Location : Knee Laterality : Left Description : KEISHA Black 03/19/2012 12:05 [employer] Peripheral IV Peripheral IV Assess/Intervention Grid Peripheral IV #1 IV Activity : Assessment Number of Attempts : 4 Date of Insertion : 03/19/2012 [employer]PER[employer]OR IV Site : Hand Laterality : Left Catheter Size : 20 Catheter Type : Over the needle Site Condition : No complications Drainage Description : None KEISHA ELMORE 03/19/2012 12:05 [employer]PER[employer]OR I&O Other Intake : 300mL YOANDYKEISHA 03/19/2012 12:05 [employer]PER[employer]OR Nutrition Lunch : 100% YOANDYKEISHA 03/19/2012 12:05 [employer]PER[employer]OR Neurologic Swallowing Difficulty/Aspiration Risk : None Extremity Movement : Unequal Facial Symmetry : Symmetric Characteristics of Speech : Appropriate for age KEISHA ELMORE 03/19/2012 12:05 [employer]PER[employer]OR Neurological Strengths Grid Left Lower Extremity Strength : Weak KEISHA ELMORE 03/19/2012 12:05 [employer]PER[employer]OR Lower Extremity Nail Bed Color Feet Grid Left Foot : [place] Right Foot : [place] KEISHA ELMORE 03/19/2012 12:05 [employer]PERVISOR Capillary Refill Feet Grid Left Foot : < 2 seconds Right Foot : < 2 seconds KEISHA ELMORE 03/19/2012 12:05 [employer] SUPERVISOR NV Lower Extremity Color Grid Left : [place] Right : [place] KEISHA ELMORE 03/19/2012 12:05 [employer] SUPERVISOR NV Lower Extremity Temperature Grid Left : Warm Right : Warm KEISHA ELMORE 03/19/2012 12:05 [employer]PERVISOR Lower Extremity Peripheral Pulses Grid Popliteal Pulse, Left : 2+ Normal Popliteal Pulse, Right : 2+ Normal Posttibial Pulse, Left : 2+ Normal Posttibial Pulse, Right : 2+ Normal Dorsalis Pedis Pulse, Left : 2+ Normal Dorsalis Pedis Pulse, Right : 2+ Normal KEISHA ELMORE 03/19/2012 12:05 [employer]PERVISOR Lower Extremity Sensation NV Grid Medial/Lateral Surfaces Sole of Left Foot : Absent, Intact Medial/Lateral Surfaces Sole of Right Foot : Tingling, Intact Web Space Between Great and Second Toe Left Foot : Absent, Intact Web Space Between Great and Second Toe Right Foot : Tingling KEISHA ELMORE RN - 03/19/2012 12:05 [employer]PER[employer]OR Lower Extremity Strength NV Grid Plantar Flexion Left Foot : Zero 0 Plantar Flexion Right Foot : Zero 0 Dorsiflex Foot/Extend Toes Left : Zero 0 Dorsiflex Foot/Extend Toes Right : Zero 0 KEISHA ELMORE RN - 03/19/2012 12:05 [employer]PERVISOR PARSAP Activity Status : Moves 4 extremities voluntarily or on command Dressing : Dry and clean Respiratory Component : Able to deep breathe and cough freely Pain : Pain free Circulation Component : BP 20% of preanesthetic level Consciousness : Fully awake Fasting and Feeding : Able to drink fluids Oxygen Saturation - Sedation : Can maintain > 92% on room air Urine Output, PARSAP : Not assessed KEISHA ELMORE RN - 03/19/2012 12:05 [employer]PERVISOR Johnson Johnson Agitation Sedation Scale (RASS) : Alert and calm RASS Score : 0 KEISHA ELMORE RN - 03/19/2012 12:05 [employer]PERVISOR Regino Sensory Perception Regino : No impairment Moisture Regino : Rarely moist Activity Regino : Walks frequently Mobility Regino : No limitations Nutrition Regino : Adequate Friction and Shear Regino : No apparent problem Regino Score : 22 KEISHA ELMORE RN - 03/19/2012 12:05 [employer]PER[employer]OR Hendrich II Fall Risk Confusion/Disorientation Hendrich : No Depression Fall Risk Hendrich : No Altered Elimination Fall Risk Hendrich : No Dizziness/Vertigo Fall Risk Hendrich : No Gender, Male Fall Risk Hendrich : No Prescribed Antiepileptics Hendrich : No Prescribed Benzodiazepines Hendrich : Yes Rising From Chair Fall Risk Hendrich : Pushes up, successful in one attempt Fall Risk Score Hendrich II : 2 KEISHA ELMORE RN - 03/19/2012 12:05 [employer]PER[employer]OR Education General Patient Education Powergrid Topics : Activity limitations/expectations, Discharge instructions/Medication list, Individual plan for pain management, Pain Management, Physical limitations, Plan of care, Printed materials Individuals Taught : Patient Barriers to Learning : None evident Teaching Method : Explanation, Printed materials Teaching Evaluation : Verbalizes understanding KEISHA ELMORE RN - 03/19/2012 12:05 [employer] SUPERVISOR Source: [facility] Document Id: [id number] [employer] SUPERVISOR Miscellaneous - Keisha Elmore RClinton - 03/19/2012 11:36 AM CST Adult Postprocedure Assessment Document Has Been Updated Adult Postprocedure Assessment Entered On: 03/19/2012 11:55 [employer]PER[employer]OR Performed On: 03/19/2012 11:36 [employer]PER[employer]OR by KEISHA ELMORE RN Vital Signs Temperature Core : 39.2C(Converted to: 102.6DegF) (HI) Peripheral Pulse Rate : 69/min Systolic Blood Pressure : 107mmHg Diastolic Blood Pressure : 64mmHg NIBP Mean : 78mmHg BP Location : Left upper extremity SpO2 : 100% Oxygen Flow Rate : 2L/min Oxygen Therapy : Nasal Cannula KEISHA ELMORE RN - 03/19/2012 11:36 [employer]PERVISOR General Level of Consciousness : Alert Orientation : Oriented x 3 Skin Color : Normal for ethnicity Skin Description : Dry Skin Temperature : Warm Pain Symptoms : No KEISHA ELMORE RN - 03/19/2012 11:36 [employer] SUPERVISOR FLACC Face FLACC : No particular expression or smile Legs FLACC : Normal position or relaxed Activity FLACC : Lying quietly, normal position, moves easily Cry FLACC : No cry, awake or asleep Consolabillity FLACC : Content, relaxed FLACC Pain Scale Score : 0 KEISHA ELMORE RN - 03/19/2012 11:36 [employer]PERVISOR Cardiovascular Heart Rhythm : Regular Nail Bed Color : [place] Capillary Refill : Less than 2 seconds KEISHA ELMORE RN - 03/19/2012 11:36 [employer] SUPERVISOR Pulses Grid Dorsalis Pedis Pulse, Left : 2+ Normal Dorsalis Pedis Pulse, Right : 2+ Normal KEISHA ELMORE RN - 03/19/2012 11:36 [employer]PER[employer]OR Antiembolism Device : Sequential Compression Device Antiembolism Device Laterality : Right KEISHA ELMORE RN - 03/19/2012 11:36 [employer]PERVISOR Respiratory Anesthesia Type : Block, Spinal KEISHA ELMORE RN - 03/19/2012 15:12 [employer]PERVISOR Airway Type : None Respiratory Pattern : Regular Respirations : Unlabored All Lobes Breath Sounds : Clear KEISHA ELMORE RN - 03/19/2012 11:36 [employer] SUPERVISOR GI/ Nausea Symptoms : No KEISHA ELMORE RN - 03/19/2012 11:36 [employer]PERVISOR Integumentary Integumentary Patient Stated Symptoms : None Skin Turgor : Elastic Skin Integrity : Not intact Mucous Membrane Color : [place] Mucous Membrane Description : Moist Skin Color : Normal for ethnicity Skin Description : Dry Skin Temperature : Warm KEISHA ELMORE - 03/19/2012 11:36 [employer] SUPERVISOR Incision/Wound Incision/Wound Care Grid Activity : Assessed Type : Other: arthroscopy Location : Knee Laterality : Left Description : KEISHA Black - 03/19/2012 11:36 [employer]PERVISOR Peripheral IV Peripheral IV Assess/Intervention Grid Peripheral IV #1 IV Activity : Assessment Number of Attempts : 4 Date of Insertion : 03/19/2012 [employer]PER[employer]OR IV Site : Hand Laterality : Left Catheter Size : 20 Catheter Type : Over the needle Site Condition : No complications Drainage Description : None KEISHA ELMORE - 03/19/2012 11:36 [employer] SUPERVISOR Neurologic Swallowing Difficulty/Aspiration Risk : None Extremity Movement : Unequal Facial Symmetry : Symmetric Characteristics of Speech : Appropriate for age KEISHA ELMORE - 03/19/2012 11:36 [employer] SUPERVISOR Lower Extremity Nail Bed Color Feet Grid Left Foot : [place] Right Foot : [place] KEISHA ELMORE - 03/19/2012 11:36 [employer] SUPERVISOR Capillary Refill Feet Grid Left Foot : < 2 seconds Right Foot : < 2 seconds KEISHA ELMORE 03/19/2012 11:36 [employer] SUPERVISOR NV Lower Extremity Color Grid Left : [place] Right : [place] KEISHA ELMORE - 03/19/2012 11:36 [employer] SUPERVISOR NV Lower Extremity Temperature Grid Left : Warm Right : Warm KEISHA ELMORE - 03/19/2012 11:36 [employer] SUPERVISOR Lower Extremity Peripheral Pulses Grid Popliteal Pulse, Left : 2+ Normal Popliteal Pulse, Right : 2+ Normal Posttibial Pulse, Left : 2+ Normal Posttibial Pulse, Right : 2+ Normal Dorsalis Pedis Pulse, Left : 2+ Normal Dorsalis Pedis Pulse, Right : 2+ Normal KEISHA ELMORE - 03/19/2012 11:36 [employer] SUPERVISOR Lower Extremity Sensation NV Grid Medial/Lateral Surfaces Sole of Left Foot : Absent Medial/Lateral Surfaces Sole of Right Foot : Tingling Web Space Between Great and Second Toe Left Foot : Absent Web Space Between Great and Second Toe Right Foot : Tingling KEISHA ELMORE - 03/19/2012 11:36 [employer] SUPERVISOR Lower Extremity Strength NV Grid Plantar Flexion Left Foot : Zero 0 Plantar Flexion Right Foot : Zero 0 Dorsiflex Foot/Extend Toes Left : Zero 0 Dorsiflex Foot/Extend Toes Right : Zero 0 BRAND, KEISHA A RN - 03/19/2012 11:36 [employer] SUPERVISOR PARSAP Activity Status : Moves 2 extremities voluntarily or on command Dressing : Dry and clean Respiratory Component : Able to deep breathe and cough freely Pain : Pain free Circulation Component : BP 20% of preanesthetic level Consciousness : Fully awake Fasting and Feeding : Able to drink fluids Oxygen Saturation - Sedation : Can maintain > 92% on room air Urine Output, PARSAP : Not assessed KEISHA ELMORE RN - 03/19/2012 11:36 [employer] SUPERVISOR Johnson Johnson Agitation Sedation Scale (RASS) : Alert and calm RASS Score : 0 KEISHA ELMORE RN - 03/19/2012 11:36 [employer] SUPERVISOR Regino Sensory Perception Regino : Slightly limited Moisture Regino : Rarely moist Activity Regino : Bedfast Mobility Regino : Completely limited Nutrition Regino : Adequate KEISHA ELMORE RN - 03/19/2012 11:36 [employer] SUPERVISOR Hendrich II Fall Risk Confusion/Disorientation Hendrich : No Depression Fall Risk Hendrich : No Altered Elimination Fall Risk Hendrich : No Dizziness/Vertigo Fall Risk Hendrich : No Gender, Male Fall Risk Hendrich : No Prescribed Antiepileptics Hendrich : No Prescribed Benzodiazepines Hendrich : Yes Rising From Chair Fall Risk Hendrich : Unable to rise without assistance Fall Risk Score Hendrich II : 5 KEISHA ELMORE RN - 03/19/2012 11:36 [employer] SUPERVISOR Education General Patient Education Powergrid Topics : Activity limitations/expectations, Individual plan for pain management, Pain Management, Plan of care, Printed materials, Safety, fall, Turn/Cough/Deep breathing Individuals Taught : Patient Barriers to Learning : None evident Teaching Method : Explanation, Printed materials Teaching Evaluation : Verbalizes understanding KEISHA ELMORE RN - 03/19/2012 11:36 [employer] SUPERVISOR Source: [facility] Document Id: [id number] [employer] SUPERVISOR Miscellaneous - Guillermina White R.N. - 03/19/2012 11:15 AM CST Adult Postprocedure Assessment Adult Postprocedure Assessment Entered On: 03/19/2012 11:31 [employer]PER[employer]OR Performed On: 03/19/2012 11:15 [employer] SUPERVISOR by GUILLERMINA WHITE RN Vital Signs Temperature Core : 36.5C(Converted to: 97.7DegF) Peripheral Pulse Rate : 68/min Respiratory Rate : 16/min Systolic Blood Pressure : 100mmHg Diastolic Blood Pressure : 59mmHg NIBP Mean : 73mmHg BP Location : Right upper extremity SpO2 : 100% Oxygen Flow Rate : 2L/min Oxygen Therapy : Nasal Cannula GUILLERMINA WHITE RN - 03/19/2012 11:22 [employer] SUPERVISOR General Level of Consciousness : Alert Orientation : Oriented x 3 Skin Color : Normal for ethnicity Skin Description : Dry Skin Temperature : Warm Pain Symptoms : No GUILLERMINA WHITE RN - 03/19/2012 11:22 [employer] SUPERVISOR FLACC Face FLACC : No particular expression or smile Legs FLACC : Normal position or relaxed Activity FLACC : Lying quietly, normal position, moves easily Cry FLACC : No cry, awake or asleep Consolabillity FLACC : Content, relaxed FLACC Pain Scale Score : 0 GUILLERMINA WHITE RN - 03/19/2012 11:22 [employer] SUPERVISOR Cardiovascular Heart Rhythm : Regular Nail Bed Color : [place] Edema : None Capillary Refill : Less than 2 seconds GUILLERMINA WHITE RN - 03/19/2012 11:22 [employer] SUPERVISOR Pulses Grid Radial Pulse, Left : 2+ Normal Radial Pulse, Right : 2+ Normal Dorsalis Pedis Pulse, Left : 2+ Normal Dorsalis Pedis Pulse, Right : 2+ Normal GUILLERMINA WHITE RN - 03/19/2012 11:22 [employer] SUPERVISOR Antiembolism Device : Luis Carlos wraps, Graduated compression stockings, thigh high Antiembolism Device Laterality : Right Anti Embolism Devices Time Applied : 03/19/2012 9:30 [employer] SUPERVISOR GUILLERMINA WHITE RN - 03/19/2012 11:22 [employer] SUPERVISOR Respiratory Anesthesia Type : MAC Airway Type : None Respiratory Pattern : Regular Respirations : Unlabored All Lobes Breath Sounds : Clear GUILLERMINA WHITE RN - 03/19/2012 11:22 [employer] SUPERVISOR GI/ Nausea Symptoms : No GUILLERMINA WHITE RN - 03/19/2012 11:22 [employer] SUPERVISOR Integumentary Integumentary Patient Stated Symptoms : None Skin Turgor : Elastic Skin Integrity : Intact Mucous Membrane Color : [place] Mucous Membrane Description : Moist Skin Color : Normal for ethnicity Skin Description : Normal Skin Temperature : Warm GUILLERMINA WHITE RN - 03/19/2012 11:22 [employer] SUPERVISOR Peripheral IV Peripheral IV Assess/Intervention Grid Peripheral IV #1 IV Activity : Assessment Number of Attempts : 4 Date of Insertion : 03/19/2012 [employer] SUPERVISOR IV Site : Hand Laterality : Left Catheter Size : 20 Catheter Type : Over the needle GUILLERMINA WHITE RN - 03/19/2012 11:22 [employer] SUPERVISOR I&O Other Intake : 1,500mL GUILLERMINA WHITE RN - 03/19/2012 11:22 [employer] SUPERVISOR Neurologic Swallowing Difficulty/Aspiration Risk : None Characteristics of Speech : Clear GUILLERMINA WHITE RN - 03/19/2012 11:22 [employer] SUPERVISOR Lower Extremity Nail Bed Color Feet Grid Left Foot : [place] Right Foot : [place] GUILLERMINA WHITE RN - 03/19/2012 11:22 [employer] SUPERVISOR Capillary Refill Feet Grid Left Foot : < 2 seconds Right Foot : < 2 seconds GUILLERMINA WHITE RN - 03/19/2012 11:22 [employer] SUPERVISOR NV Lower Extremity Color Grid Left : [place] Right : [place] GUILLERMINA WHITE RN - 03/19/2012 11:22 [employer] SUPERVISOR NV Lower Extremity Temperature Grid Left : Warm Right : Warm GUILLERMINA WHITE RN - 03/19/2012 11:22 [employer] SUPERVISOR Lower Extremity Peripheral Pulses Grid Popliteal Pulse, Left : 2+ Normal Popliteal Pulse, Right : 2+ Normal Posttibial Pulse, Left : 2+ Normal Posttibial Pulse, Right : 2+ Normal Dorsalis Pedis Pulse, Left : 2+ Normal Dorsalis Pedis Pulse, Right : 2+ Normal GUILLERMINA WHITE RN - 03/19/2012 11:22 [employer] SUPERVISOR Lower Extremity Sensation NV Grid Medial/Lateral Surfaces Sole of Left Foot : Absent Medial/Lateral Surfaces Sole of Right Foot : Absent Web Space Between Great and Second Toe Left Foot : Absent Web Space Between Great and Second Toe Right Foot : Absent GUILLERMINA WHITE RN - 03/19/2012 11:22 [employer] SUPERVISOR Lower Extremity Strength NV Grid Plantar Flexion Left Foot : Zero 0 Plantar Flexion Right Foot : Zero 0 Dorsiflex Foot/Extend Toes Left : Zero 0 Dorsiflex Foot/Extend Toes Right : Zero 0 GUILLERMINA WHITE RN - 03/19/2012 11:22 [employer] SUPERVISOR Upper Extremity Nail Bed Color Hands Grid Left Hand : [place] Right Hand : [place] GUILLERMINA WHITE RN - 03/19/2012 11:22 [employer] SUPERVISOR Capillary Refill Hand Grid Left Hand : < 2 seconds Right Hand : < 2 seconds GUILLERMINA WHITE RN - 03/19/2012 11:22 [employer] SUPERVISOR Upper Extremity Color Grid Left : [place] Right : [place] GUILLERMINA WHITE RN - 03/19/2012 11:22 [employer] SUPERVISOR Upper Extremity Temperature Grid Left : Warm Right : Warm GUILLERMINA WHITE RN - 03/19/2012 11:22 [employer] SUPERVISOR NV Upper Extremity Pulses Grid Radial Pulse, Left : 2+ Normal Radial Pulse, Right : 2+ Normal GUILLERMINA WHITE RN - 03/19/2012 11:22 [employer] SUPERVISOR Modified Temitope Activity : Moves 2 extremities voluntarily or on command Respiratory : Able to deep breathe and cough freely Circulation : BP 20-49% of preanesthetic level Consciousness : Fully awake O2 Saturation : Needs oxygen to maintain > 92% Temitope l Score : 7 GUILLERMINA WHITE RN - 03/19/2012 11:22 [employer] SUPERVISOR Johnson Johnson Agitation Sedation Scale (RASS) : Alert and calm RASS Score : 0 GUILLERMINA WHITE RN - 03/19/2012 11:22 [employer] SUPERVISOR Regino Sensory Perception Regino : No impairment Moisture Regino : Rarely moist Activity Regino : Walks frequently Mobility Regino : Very limited Nutrition Regino : Excellent Friction and Shear Regino : No apparent problem Regino Score : 21 GUILLERMINA WHITE RN - 03/19/2012 11:22 [employer] SUPERVISOR Hendrich II Fall Risk Confusion/Disorientation Hendrich : No Depression Fall Risk Hendrich : No Altered Elimination Fall Risk Hendrich : No Dizziness/Vertigo Fall Risk Hendrich : No Gender, Male Fall Risk Hendrich : No Prescribed Antiepileptics Hendrich : No Prescribed Benzodiazepines Hendrich : Yes Rising From Chair Fall Risk Hendrich : Unable to rise without assistance Fall Risk Score Hendrich II : 5 GUILLERMINA WHITE RN - 03/19/2012 11:22 [employer] SUPERVISOR Education General Patient Education Powergrid Topics : Activity limitations/expectations, Disease process, Pain Management, Physical limitations, Plan of care, Postoperative instructions, Surgery, Use of pain scale(s) Individuals Taught : Patient Barriers to Learning : None evident Teaching Method : Explanation Teaching Evaluation : Needs reinforcement, Verbalizes understanding Education Referral Made To : Physical Therapy GUILLERMINA WHITE RN - 03/19/2012 11:22 [employer] SUPERVISOR Source: [facility] Document Id: [id number] [employer] W[employer]HOUSE SUPERVISOR documented in this encounter Plan of Treatment Not on filedocumented as of this encounter Visit Diagnoses Not on filedocumented in this encounter
--- OUTSIDE RECORDS SUMMARY | 2022-01-29 10:54 | XMS_ITS | Encounter Summary ---
:1970 Author Organization [facility] Address [address] [place] [address] Care Team Providers Name Role Phone Unavailable Primary Care Provider Unavailable Encounter Details Date Type Department Care Team Description 06/27/2012 Hospital Encounter HX [facility] ME April Dwyer, N.P. [address] [place] [address] (Wo rk) Social History Tobacco Use Types Packs/Day Years Used Date Smoking Tobacco: Never Assessed Sex Assigned at Date Recorded Not on file documented as of this encounter Last Filed Vital Signs Vital Sign Reading Time Taken Comments Blood Pressure 124/74 06/27/2012 10:42 AM [facility] Pulse 68 06/27/2012 10:42 AM [facility] Temperature - - Respiratory Rate 16 06/27/2012 10:42 AM [facility] Oxygen Saturation - - Inhaled Oxygen Concentration - - Weight 98.8 kg (217 lb 13 oz) 06/27/2012 10:42 AM [facility] Height - - Body Mass Index 38.12 03/19/2012 9:08 AM [facility] documented in this encounter Medications at Time of Discharge Medication Sig Dispensed Refills Start Date End Date IBUPROFEN ORAL Take by mouth as needed. 0 011 documented as of this encounter Progress Notes Renea Dwyre, N.P. - 06/27/2012 10:29 AM CST [id number] CHIEF COMPLAINT/REASON FOR VISIT Sore throat. HISTORY OF PRESENT ILLNESS Candy is a 41-year-old female who is here today with complaints of a sore throat. She states her symptoms started yesterday. She notes that several of her coworkers have had strep throat. She is concerned because she is going to be visiting her father who has end stage Maria De Jesus Gehrig's disease this weekend and does not want to expose him to anything. She denies any fever. She has had no ear pain. No congestion, although she has had a cough that has persisted since her symptoms that she had back in April. She denies any abdominal complaints or rash. CURRENT MEDICATIONS New prescription is amoxicillin 875 mg 1 tablet twice daily times 10 days. ALLERGIES Hydrocodone causes vomiting. Demerol nausea. PAST MEDICAL/SURGICAL HISTORY Reviewed and unchanged. Please see EMR. VITAL SIGNS Temperature 37 degreesC, pulse 68, respirations 16, blood pressure 124/74. PHYSICAL EXAMINATION GENERAL: Candy is alert, oriented times 3, appears in no acute distress. HEENT: Head is normocephalic, atraumatic. Bilateral TMs are shiny, tidwell, intact with no erythema or effusion present. Oropharynx is moderately erythematous. No tonsillar exudate or swelling. NECK: Neck is supple. No lymphadenopathy. CARDIOVASCULAR: Heart rate is regular; S1, S2 is present. No murmur or rub. LUNGS: Clear to auscultation. DIAGNOSTICS: Rapid strep test was negative. IMPRESSION/REPORT/PLAN Pharyngitis. PLAN: Discussed with Candy that her rapid strep test was negative. Candy did, however, request treatment for a sore throat as she does really want to see her father as he is not doing very well anddoes not want to potentially contaminate him with any bacteria. We discussed that the antibiotics would only treat a bacterial infection and certainly if she had a virus she still could be considered contagious. A prescription for amoxicillin 875 mg 1 tablet twice daily for 10 days has been written. She is to return to the clinic if her symptoms do not resolve as anticipated. PATIENT EDUCATION: Ready to learn No apparent learning barriers were identified Learning preferences include listening Explained diagnosis and treatment plan Patient/Child/Caregiver expressed understanding of the content Chanel Zaragoza/aysha DOCID: [id number] Electronically Signed By: RENEA DWYER NP On: 07/01/2012 09:28 AM Source: [facility] MHSDOLBEYNONRADSYS Document Id: [id number] documented in this encounter Miscellaneous Notes Miscellaneous - Renea Dwyer, N.P. - 06/27/2012 1:09 PM CST Ambulatory Patient Summary [address] [address] Visit Information Name: CANDY GRULLON [facility] Number: [id number] Current Date: 06/27/2012 13:09:26 Physicians Attending Provider: RENEA DWYER SAMPLE COORDINATOR Primary Care Provider: WILLEM SAEED RN, [facility] Your Medications Here is a list of your medications. It is important to take your medications as directed. Use a pillbox or chart to help remind you to take your medications. Please let your doctor or nurse know if you have problems taking your medications. Medication/Strength Dose Route Frequency Indications/Special Instructions/Comments amoxicillin (amoxicillin 875 mg oral tablet) 875 mg Oral two times a day for 10 Days albuterol (Ventolin HFA 90 mcg/inh inhalation aerosol) 2 puff(s) Inhalation as directed as needed for Shortness of breath / Wheezing ibuprofen (Advil) Oral as needed Attention: If you have any medications at home that are not on this list, DO NOT take them until youcontact your provider for clarification. Your Allergies & Intolerances Substance Reaction Symptoms Category Comments Demerol HCl nausea Drug hydrocodone-acetaminophen vomiting Drug Your Problem List Problem Status Onset Comments Nicotine dependence Active 1982 05/31/11 date of onset unknown Throat Pain Active Your Upcoming Appointments Date Time Location Reason Provider No Appointments found Your Goals/Additional instructions: Source: [facility] POWERCHART Document Id: [id number] DRIER Miscellaneous - Renea Dwyer N.P. - 06/27/2012 1:09 PM CST Ambulatory Depart Summary [address] [address] Visit Information Name: CANDY GRULLON [facility] Number: [id number] Visit Date: 06/27/2012 13:09:25 Attending Provider: RENEA DWYER SAMPLE COORDINATOR Primary Care Provider: WILLEM SAEED RN, MANAGER SALES AND MARKETING CANDY GRULLON has been given the following list of medications: Your Medications It is important to take your medications as directed. Use a pill box or chart to help remind you to take your medications. Please let your doctor or nurse know if you have problems taking your medications. Medication/Strength Dose Route Frequency Indications/Special Instructions/Comments amoxicillin (amoxicillin 875 mg oral tablet) 875 mg Oral two times a day for 10 Days albuterol (Ventolin HFA 90 mcg/inh inhalation aerosol) 2 puff(s) Inhalation as directed as needed for Shortness of breath / Wheezing ibuprofen (Advil) Oral as needed Attention: If you have any medications at home that are not on this list, DO NOT take them until youcontact your provider for clarification. Additional Information: Source: [facility] POWERCHART Document Id: [id number] DRIER Miscellaneous - Martinez Saenz LCarineP.N. - 06/27/2012 10:42 AM CST Adult Coverstitch Elastic Attacher Intake/History Adult Coverstitch Elastic Attacher Intake/History Entered On: 06/27/2012 10:45 [facility]IP [facility]ER Performed On: 06/27/2012 10:42 [facility]ER by MARTINEZ SAENZ LPN Intake Chief Complaint : awoke yesterday with sore throat Onset of Symptoms : 24 hours Temperature Core : 37.0C(Converted to: 98.6DegF) Peripheral Pulse Rate : 68/min Respiratory Rate : 16/min Heart Rhythm : Regular Systolic Blood Pressure : 124mmHg Diastolic Blood Pressure : 74mmHg NIBP Mean : 91mmHg BP Location : Left upper extremity Blood Pressure Cuff Size : Regular Actual Weight : 98.8kg(Converted to: 217lb 13oz) Weight Source : Standing scale Dosing Weight Clinic : 98.80kg MARTINEZ SAENZ LPN - 06/27/2012 10:42 [facility]IP [facility]RIER General Info Information Given By : Patient Languages : Austrian MARTINEZ SAENZ [facility] 06/27/2012 10:42 [facility]ER Subjective Pain Symptoms : Yes MARTINEZ SAENZ [facility] - 06/27/2012 10:42 [facility]ER Pain Pain Assessment Grid Pain 1 Location : Throat Laterality : Bilateral Intensity : 8 MARTINEZ SAENZ [facility] - 06/27/2012 10:42 [facility]ER Dependent Habits Tobacco Use/Currently Using : Yes Tobacco Use/Advised to Quit : Yes Exposure to Tobacco Smoke : Patient smokes Smoking Status : Current every day smoker [place] [facility] - 06/27/2012 10:42 [facility]ER Tobacco Use Grid Type : Cigarettes Cigarette Use Packs/Day : 0.5 Last Use : 2 weeks ago ROSARIO MARTINEZ [place] [facility] 06/27/2012 10:42 [facility]IP [facility]RIER Caffeine Use Grid Caffeine Use : Current Type : Soft drinks Frequency : Daily MARTINEZ SAENZ [facility] 06/27/2012 10:42 [facility]IP [facility]ER Recreational Drug Use Grid Drug Use : None MARTINEZ SAENZ [facility] 06/27/2012 10:42 [facility]ER Allergy Allergies (Active) Demerol HCl Estimated Onset Date: Unspecified ; Reactions: nausea ; Created By: RENEA DWYER NP; Reaction Status: Active ; Category: Drug ; Substance: Demerol HCl ; Type: Allergy ; Updated By: RENEA DWYER NP; Reviewed Date: 05/08/2012 13:14 [facility]ER hydrocodone-acetaminophen Estimated Onset Date: Unspecified ; Reactions: vomiting ; Created By: RENEA DWYER NP; Reaction Status: Active ; Category: Drug ; Substance: hydrocodone-acetaminophen ; Type: Allergy ; Severity: Severe ; Updated By: RENEA DWYER NP; Source: Patient ; Reviewed Date: 05/08/2012 13:14 [facility]IP [facility]RIER Source: [facility] POWERCHART Document Id: [id number] DRIER documented in this encounter Plan of Treatment Not on filedocumented as of this encounter Procedures Procedure Name Priority Date/Time Associated Diagnosis Comme nts RAPID STREP A Routine 06/27/2012 10:55 AM Results for this SCREEN [facility] procedure are i n the results section. RAPID STREP A Routine 06/27/2012 10:50 AM Results for this SCREEN [facility] procedure are i n the results section. documented in this encounter Results Rapid Strep A Screen (06/27/2012 10:55 AM [facility]RIER) [facility] Method Time Signature HXRapid Strep POWERCHART Confirmation HXPre Negative for POWERCHART Group A Strep by culture. HXFinal Negative for POWERCHART Group A Strep by culture. Specimen Anatomical Collection Method Collection Time Receive d Time (Source) Location / / Volume Laterality Throat 06/27/2012 10:55 06/27/2012 AM [facility]IP [facility]RIER 10:55 AM [facility]RIER Renea Dwyer N.P. LAB MICROBIOLOGY - GENERAL O THU Performing Organization Address City/[facility] Code Phon e Number POWERCHART Rapid Strep A Screen (06/27/2012 10:50 AM CHIP DRIER) [facility] Method Time Signature HXStrep A POWERCHART Screen Rapid HXFinal Negative for POWERCHART Strep Group A by rapid screen. HXFinal Culture POWERCHART confirmation to follow. Specimen (Source) Anatomical Collection Method Collection Time Re ceived Time Location / / Volume Laterality Throat 06/27/2012 10:50 AM [facility]ER Renea Dwyer N.P. LAB MICROBIOLOGY - GENERAL O THU Performing Organization Address City/State/[facility] Code Phon e Number POWERCHART documented in this encounter Visit Diagnoses Not on filedocumented in this encounter
--- OUTSIDE RECORDS SUMMARY | 2022-01-29 10:54 | XMS_ITS | Encounter Summary ---
:1970 Author Organization [facility] Address [address] [place] [address] Care Team Providers Name Role Phone Unavailable Primary Care Provider Unavailable Encounter Details Date Type Department Care Team Description 05/08/2012 Hospital Encounter HX [facility] ME Denise Johnson P.A.-C. [address] [place] [address] (Wo rk) Social History Tobacco Use Types Packs/Day Years Used Date Smoking Tobacco: Never Assessed Sex Assigned at Date Recorded Not on file documented as of this encounter Last Filed Vital Signs Vital Sign Reading Time Taken Comments Blood Pressure 126/68 05/08/2012 1:08 PM INSURANCE MARKETING SPECIALIST Pulse 93 05/08/2012 1:08 PM INSURANCE MARKETING SPECIALIST Temperature - - Respiratory Rate 20 05/08/2012 1:08 PM INSURANCE MARKETING SPECIALIST Oxygen Saturation - - Inhaled Oxygen Concentration - - Weight 98.8 kg (217 lb 13 oz) 05/08/2012 1:08 PM INSURANCE MARKETING SPECIALIST Height - - Body Mass Index 38.12 03/19/2012 9:08 AM INSURANCE MARKETING SPECIALIST documented in this encounter Medications at Time of Discharge Medication Sig Dispensed Refills Start Date End Date IBUPROFEN ORAL Take by mouth as needed. 0 011 documented as of this encounter Progress Notes Chandni Johnson - 05/08/2012 1:05 PM CST [id number] CHIEF COMPLAINT/REASON FOR VISIT This is a 41-year-old female seen today concerned that her cough is just not improved. She was seen here in the clinic on 04/30/2012. States that her symptoms started about April 23, 2012, with a bad harsh cough. After her visit last week on 04/30/2012 she took 5 days of Zithromax and states that it seemed like it helped a little bit but just not too much. She has also been using inhalers since thenand does not seem to make too much of a difference. She is concerned because she is continuing to have a heavy chest. It feels tight. She feels a little bit short of breath. She describes a productive cough. She feels a little bit wheezy as well. She states that the cough is keeping her awake at night. She has been using cough syrup with codeine and that helps a little bit. She also has just a littlebit of nasal congestion but denies any ear pain. No sore throat. No fevers or chills. She is just feeling tired from all of it. She denies any posttussive emesis but does get into some coughing jags. CURRENT MEDICATIONS Advil as needed. Robitussin AC at night. Albuterol inhaler 2 puffs as needed. ALLERGIES Hydrocodone, acetaminophen and Demerol. PAST MEDICAL/SURGICAL HISTORY Past medical history and surgical history are reviewed in the EMR. VITAL SIGNS Temperature 36.6. Heart rate 93. Respirations 20. Blood pressure 126/68. Oxygen saturation 97% on room air. Height 98.8 kg. PHYSICAL EXAMINATION GENERAL: She is alert, interactive and cooperative. She appears to be well nourished and well hydrated in no acute distress. HEENT: Head is normocephalic, atraumatic. Tympanic membranes are clear with normal landmarks, normallight reflex. Canals are clear. Sclerae and conjunctivae are clear. Nares are non-congested. Oral mucosa is pink and moist. Posterior pharynx is nonerythematous. Tonsils not enlarged. No exudate. NECK: Supple. No lymphadenopathy. LUNGS: Lungs do have some rhonchi heard more so on the right than on the left, but no wheezes are heard. She does have a harsh cough that does sound congested. RADIOLOGY: Chest x-ray was done and came back showing no sign of infiltrate. IMPRESSION/REPORT/PLAN Ongoing bronchitis. She was reassured that there is no sign of a pneumonia developing. Encouraged tocontinue using humidified air, guaifenesin to break up the congestion, cough syrup to help her at night, and the inhaler to help open up her airways. She should return if she has worsening. Otherwise call or return for any other questions or concerns. Chandni Johnson P.A.-C./[facility] Electronically Signed By: CHANDNI JOHNSON On: 05/09/2012 08:40 AM Source: [facility] MHSDOLBEYNONRADSYS Document Id: [id number] RANCE MARKETING SPECIALIST documented in this encounter Miscellaneous Notes Miscellaneous - Chandni Jhonson - 05/08/2012 2:38 PM CST Ambulatory Patient Summary [id number] [place] [address] Visit Information Name: CANDY GRULLON [facility] Number: [id number] Current Date: 05/08/2012 14:38:14 Physicians Attending Provider: HCANDNI JOHNSON Primary Care Provider: WILLEM SAEED RN, INTERNATIONAL EDITORIAL PRODUCER Your Medications Here is a list of your medications. It is important to take your medications as directed. Use a pillbox or chart to help remind you to take your medications. Please let your doctor or nurse know if you have problems taking your medications. Medication/Strength Dose Route Frequency Indications/Special Instructions/Comments albuterol (Ventolin HFA 90 mcg/inh inhalation aerosol) 2 puff(s) Inhalation as directed as needed for Shortness of breath / Wheezing codeine-guaifenesin (Guaiatussin AC 10 mg-100 mg/5 mL oral syrup) 5 mL Oral every 6 hours as needed for cough and congestion ibuprofen (Advil) Oral as needed Attention: If [...] Upcoming Appointments Date Time Location Reason Provider 05/21/2012 08:45 [facility] Spec Clin follow up L knee Lars Gaines PA-C Your Goals/Additional instructions: Source: [facility] POWERCHART Document Id: [id number] RANCE MARKETING SPECIALIST Miscellaneous - Chandni Johnson - 05/08/2012 2:38 PM CST Ambulatory Depart Summary [id number] [place] [address] Visit Information Name: CANDY GRULLON [facility] Number: [id number] Visit Date: 05/08/2012 14:38:13 Attending Provider: CHANDNI JOHNSON Primary Care Provider: WILLEM SAEED RN, INTERNATIONAL EDITORIAL PRODUCER CANDY GRULLON has been given the following list of medications: Your Medications It is important to take your medications as directed. Use a pill box or chart to help remind you to take your medications. Please let your doctor or nurse know if you have problems taking your medications. Medication/Strength Dose Route Frequency Indications/Special Instructions/Comments albuterol (Ventolin HFA 90 mcg/inh inhalation aerosol) 2 puff(s) Inhalation as directed as needed for Shortness of breath / Wheezing codeine-guaifenesin (Guaiatussin AC 10 mg-100 mg/5 mL oral syrup) 5 mL Oral every 6 hours as needed for cough and congestion ibuprofen (Advil) Oral as needed Attention: If you have any medications at home that are not on this list, DO NOT take them until youcontact your provider for clarification. Additional Information: Source: [facility] POWERCHART Document Id: [id number] RANCE MARKETING SPECIALIST Martin - Chandni Johnson - 05/08/2012 1:38 PM CST School or Work Excuse School or Work Excuse Entered On: 05/08/2012 13:39 INSURANCE MARKETING SPECIALIST Performed On: 05/08/2012 13:38 INSURANCE MARKETING SPECIALIST by CHANDNI JOHNSON School or Work Excuse Date Patient Seen : 05/08/2012 INSURANCE MARKETING SPECIALIST Comment : Candy was seen in the clinic today for x-rays. CHANDNI JOHNSON - 05/08/2012 13:38 INSURANCE MARKETING SPECIALIST Source: [facility] POWERCHART Document Id: [id number] RANCE MARKETING SPECIALIST Miscellaneous - Rafia Castro L.P.N. - 05/08/2012 1:08 PM CST Adult Rn Endoscopy Intake/History Adult Rn Endoscopy Intake/History Entered On: 05/08/2012 13:14 INSURANCE MARKETING SPECIALIST Performed On: 05/08/2012 13:08 INSURANCE MARKETING SPECIALIST by RAFIA JETER LPN Intake Chief Complaint : bronchitis is worse, was treated with zpack, patient states cough is worse, chest is heavy, patient did not have a CXR Onset of Symptoms : a week ago Temperature Core : 36.6C(Converted to: 97.9DegF) Peripheral Pulse Rate : 93/min Respiratory Rate : 20/min Heart Rhythm : Regular Systolic Blood Pressure : 126mmHg Diastolic Blood Pressure : 68mmHg NIBP Mean : 87mmHg BP Location : Right upper extremity Blood Pressure Cuff Size : Regular SpO2 : 97% Oxygen Therapy : Room air Actual Weight : 98.8kg(Converted to: 217lb 13oz) Weight Source : Standing scale Dosing Weight Clinic : 98.80kg RAFIA JETER LPN - 05/08/2012 13:08 INSURANCE MARKETING SPECIALIST Subjective Pain Symptoms : Yes RAFIA JETER LPN - 05/08/2012 13:08 INSURANCE MARKETING SPECIALIST Pain Pain Assessment Grid Pain 1 Location : Chest Intensity : 8 RAFIA JETER LPN - 05/08/2012 13:08 INSURANCE MARKETING SPECIALIST Dependent Habits Tobacco Use/Currently Using : No Tobacco Use/Last 12 months : Yes Exposure to Tobacco Smoke : Patient smokes Smoking Status : Former smoker RAFIA JETER LPN - 05/08/2012 13:08 INSURANCE MARKETING SPECIALIST Tobacco Use Grid Type : Cigarettes Cigarette Use Packs/Day : 0.5 Last Use : 2 weeks ago RAFIA JETER LPN - 05/08/2012 13:08 INSURANCE MARKETING SPECIALIST Alcohol Use : Yes RAFIA JETER [facility] - 05/08/2012 13:08 INSURANCE MARKETING SPECIALIST Caffeine Use Grid Caffeine Use : Current Type : Soft drinks Frequency : Daily RAFIA JETER [facility] - 05/08/2012 13:08 INSURANCE MARKETING SPECIALIST Recreational Drug Use Grid Drug Use : None RAFIA JETER [facility] - 05/08/2012 13:08 INSURANCE MARKETING SPECIALIST Allergy Allergies (Active) Demerol HCl Estimated Onset Date: Unspecified ; Reactions: nausea ; Created By: RENEA MARTINEZ NP; Reaction Status: Active ; Category: Drug ; Substance: Demerol HCl ; Type: Allergy ; Updated By: RENEA MARTINEZ NP; Reviewed Date: 04/30/2012 8:19 INSURANCE MARKETING SPECIALIST hydrocodone-acetaminophen Estimated Onset Date: Unspecified ; Reactions: vomiting ; Created By: RENEA MARTINEZ NP; Reaction Status: Active ; Category: Drug ; Substance: hydrocodone-acetaminophen ; Type: Allergy ; Severity: Severe ; Updated By: RENEA MARTINEZ NP; Source: Patient ; Reviewed Date: 04/30/2012 8:20 INSURANCE MARKETING SPECIALIST Source: [facility] POWERCHART Document Id: [id number] RANCE MARKETING SPECIALIST documented in this encounter Plan of Treatment Not on filedocumented as of this encounter Visit Diagnoses Not on filedocumented in this encounter
--- OUTSIDE RECORDS SUMMARY | 2022-01-29 10:54 | XMS_ITS | Encounter Summary ---
:1970 Author Organization [facility] Address [address] [place] [address] Care Team Providers Name Role Phone Unavailable Primary Care Provider Unavailable Encounter Details Date Type Department Care Team Description 03/28/2013 Hospital Encounter HX [facility] Zita Saeed APRN, C.N.P., D. N.P. [address] [place] [address] (Wo rk) Social History Tobacco Use Types Packs/Day Years Used Date Smoking Tobacco: Never Assessed Sex Assigned at Date Recorded Not on file documented as of this encounter Last Filed Vital Signs Vital Sign Reading Time Taken Comments Blood Pressure 122/70 03/28/2013 8:16 AM REFERENCE ASSISTANT Pulse 78 03/28/2013 8:16 AM REFERENCE ASSISTANT Temperature - - Respiratory Rate 16 03/28/2013 8:16 AM REFERENCE ASSISTANT Oxygen Saturation - - Inhaled Oxygen Concentration - - Weight 101 kg (223 lb 1.7 oz) 03/28/2013 8:16 AM REFERENCE ASSISTANT Height 161 cm (5' 3.39) 03/28/2013 8:16 AM REFERENCE ASSISTANT Body Mass Index 39.04 03/28/2013 8:16 AM REFERENCE ASSISTANT documented in this encounter Medications at Time of Discharge Medication Sig Dispensed Refills Start Date End Date IBUPROFEN ORAL Take by mouth as needed. 0 011 documented as of this encounter Progress Notes Zita Saeed APRN, C.N.P. - 03/28/2013 8:03 AM CST [id number] CHIEF COMPLAINT/REASON FOR VISIT Recurrent boils. HISTORY OF PRESENT ILLNESS Candy is a very pleasant 42-year-old nondiabetic who comes in today with multiple boils that have been occurring on her breasts or in her axillary area and groin area. She said they usually occur, become very painful. She will use warm packs. They will opened up and then spontaneously resolve. They have become very painful for her and she has had multiple. The span of beginning to the eruption usually is about a 5-day process. The patient states that they keep reoccurring. She has changed no lotions. She has not been sweating excessively. Her weight has not changed. She has not changed any soaps or detergents. She has not been feverish or had any chills. MEDICATIONS Bactrim DS 1 tablet by mouth twice daily for 14 days. ALLERGIES Please see the EMR. VITAL SIGNS Please see the EMR. PHYSICAL EXAMINATION GENERAL: Patient appears nondistressed. SKIN: At this point, she does not have any groin lesions noted. She does have two healing lesions onher left breast area, but a significant one on her right axillary area that is very tender to touch.I was able to open that and express, thick drainage from that which we did take a culture. IMPRESSION/REPORT/PLAN Skin lesion. 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 She has had this problem for about the last 4 months, however, her father was dying at the time and she was not in tune to any infectious process that she was having. We are going to place her on Bactrim DS 1 tablet by mouth twice daily for 14 days. I will call or send her the results of the culture and make adjustments as necessary. Patient agrees with that plan. PATIENT EDUCATION: Ready to learn No apparent learning barriers were identified Learning preferences include listening Explained diagnosis and treatment plan Patient/Child/Caregiver expressed understanding of the content Chanel Herzog/aysha Electronically Signed By: ZITA SAEED RN, MARKET INTELLIGENCE CONSULTANT On: 03/31/2013 01:14 PM Source: [facility] [id number] Document Id: [id number] RENCE ASSISTANT documented in this encounter Miscellaneous Notes Miscellaneous - Zita Saeed APRN, C.N.P. - 03/31/2013 7:57 AM CST Normal Results Letter 31 March 2013 CANDY GRULLON [address] [address] [place] [phone] Dear CANDY GRULLON, Your culture result from the wound showed staph. The antibiotic prescribed should cover this. Pleasefollow up with us as we discussed during your visit or sooner if you have any concerns. If you have questions or concerns, please do not hesitate to call our office. Result Name Current Result Culture Wound Aerobic POS 03/28/2013 Sincerely, ZITA SAEED [address] [place] [id number] Electronic Signature Electronically Signed By: ZITA ASEED RN, MARKET INTELLIGENCE CONSULTANT On: 31 March 2013 This document has images extracted. Source: [facility] POWERCHART Document Id: [id number] Electronically signed by Maryann [facility] Third Rail Installer [id number] at 09/20/2016 1:39 PM CDT Miscellaneous - Zita Saeed APRN, C.N.P. - 03/28/2013 8:55 AM CST Ambulatory Patient Summary [address] [address] Visit Information Name: CANDY GRULLON [facility] Number: [id number] Current Date: 03/28/2013 08:55:45 Physicians Attending Provider: ZITA SAEED RN, MARKET INTELLIGENCE CONSULTANT Primary Care Provider: ZITA SAEED RN, MARKET INTELLIGENCE CONSULTANT CANDY GRULLON has been given the following [...] Indications/Special Instructions/Comments/Notes for Patient Medication Changes/Routing *albuterol (Ventolin HFA 90 mcg/inh inhalation aerosol) 2 puff(s), Inhalation, as directed as neededfor Shortness of breath / Wheezing ibuprofen (Advil) Oral, as needed sulfamethoxazole-trimethoprim (Bactrim DS 800 mg-160 mg oral tablet) 1 Tablet(s), Oral, two times a day x 14 day(s) New Routed to [facility] * You have let us know that you are not taking this medication as listed. Please talk with your primary care provider or the health care provider who prescribed the medication as soon as possible. Stop Taking the Following Medications: Medication list as of 03-28-13 08:55 Attention: If you have any medications at home that are not on this list, DO NOT take them until youcontact your provider for clarification. Give a copy of your medication list to your primary care provider. Update your medication list any time medications or doses are changed and carry your medication list at all times in case of emergency. Your Allergies & Intolerances Substance Reaction Symptoms [...] appointment detail needed. Your Goals/Additional instructions: Source: [facility] POWERCHART Document Id: [id number] RENCE ASSISTANT Miscellaneous - Zita Saeed APRN, C.N.P. - 03/28/2013 8:55 AM CST Ambulatory Depart Summary [address] [address] Visit Information Name: CANDY GRULLON [facility] Number: [id number] Visit Date: 03/28/2013 08:55:44 Attending Provider: ZITA SAEED RN, MARKET INTELLIGENCE CONSULTANT Primary Care Provider: ZITA SAEED RN, MARKET INTELLIGENCE CONSULTANT MICKIECANDYE has been given the following list of medications: Your Medications It is important to take your medications as directed. Use a pill box or chart to help remind you to take your medications. Please let your doctor or nurse know if you have problems taking your medications. Medication/Strength How to Take Indications/Special Instructions/Comments/Notes for Patient Medication Changes/Routing *albuterol (Ventolin HFA 90 mcg/inh inhalation aerosol) 2 puff(s), Inhalation, as directed as neededfor Shortness of breath / Wheezing ibuprofen (Advil) Oral, as needed sulfamethoxazole-trimethoprim (Bactrim DS 800 mg-160 mg oral tablet) 1 Tablet(s), Oral, two times a day x 14 day(s) New Routed to [facility] * You have let us know that you are not taking this medication as listed. Please talk with your primary care provider or the health care provider who prescribed the medication as soon as possible. Stop Taking the Following Medications: Medication list as of 03-28-13 08:55 Attention: If you have any medications at home that are not on this list, DO NOT take them until youcontact your provider for clarification. Give a copy of your medication list to your primary care provider. Update your medication list any time medications or doses are changed and carry your medication list at all times in case of emergency. Additional Information: Source: [facility] POWERCHART Document Id: [id number] RENCE ASSISTANT Miscellaneous - Zita Saeed APRN, C.N.P. - 03/28/2013 8:53 AM CST Work Excuse 28 March 2013 CANDYSA GRULLON [address] [phone] Dear CANDY GRULLON, You were examined in my office on: 03/28/13 Reason for work excuse: Medical Illness ( X ) Yes ( _ ) No Injury ( _ ) Yes ( X) No Is excused from all work: (X ) Yes ( _ ) No Has work limitations: ( _ ) Yes ( X ) No As follows: _ Limitations apply until: _ Follow-Up Appointment : ( _ ) Return to Work date: 03/29/13 Notes: _ Sincerely, ZITA SAEED [address] [place] [address] Electronic Signature Electronically Signed By: ZITA SAEED RN, MARKET INTELLIGENCE CONSULTANT On: 28 March 2013 This document has images extracted. Source: [facility] Document Id: [id number] Electronically signed by Maryann [facility] Third Rail Installer [id number] at 09/20/2016 1:39 PM CDT Abbeycellkatie - Jasmin Douglas LCarineP.N. - 03/28/2013 8:22 AM CST Meaningful Use Influenza Exclusion Meaningful Use Influenza Exclusion Entered On: 03/28/2013 8:22 REFERENCE ASSISTANT Performed On: 03/28/2013 8:22 REFERENCE ASSISTANT by JASMIN DOUGLAS LPN Influenza Vaccine Exclusion Influenza Vaccine Exclusion : Patient declined JASMIN DOUGLAS LPN - 03/28/2013 8:22 REFERENCE ASSISTANT Source: [facility] [employer] Document Id: [id number] REFERENCE ASSISTANT!3 RENCE ASSISTANT Martin - Jasmin Douglas L.P.N. - 03/28/2013 8:22 AM CST Health Assessment Health Assessment Entered On: 03/28/2013 8:22 REFERENCE ASSISTANT Performed On: 03/28/2013 8:22 REFERENCE ASSISTANT by JASMIN DOUGLAS LPN Health Assessment Complete Health Assessment Complete or Modified : Annual Health Assessment Annual Health Assessment Completed : Yes JASMIN DOUGLAS LPN - 03/28/2013 8:22 REFERENCE ASSISTANT Nutrition Nutrition Risk Factors by History Adult : None JASMIN DOUGLAS LPN - 03/28/2013 8:22 REFERENCE ASSISTANT Functional Current Daily Living Assistance : None JASMIN DOUGLAS LPN - 03/28/2013 8:22 REFERENCE ASSISTANT Dependent Habits Tobacco Use/Currently Using : Yes Exposure to Tobacco Smoke : Patient smokes Smoking Status : Current every day smoker JASMIN DOUGLAS LPN - 03/28/2013 8:22 REFERENCE ASSISTANT Tobacco Use Grid Type : Cigarettes Cigarette Use Packs/Day : 0.5 Last Use : 2 weeks ago JASMIN DOUGLAS LPN - 03/28/2013 8:22 REFERENCE ASSISTANT Caffeine Use Grid Caffeine Use : Current Type : Soft drinks Frequency : Daily JASMIN DOUGLAS LPN - 03/28/2013 8:22 REFERENCE ASSISTANT Recreational Drug Use Grid Drug Use : None JASMIN DOUGLAS LPN - 03/28/2013 8:22 REFERENCE ASSISTANT Psychosocial Domestic Abuse Concerns : None JASMIN DOUGLAS LPN - 03/28/2013 8:22 REFERENCE ASSISTANT Advance Directive Advanced Directives : Yes JASMIN DOUGLAS LPN - 03/28/2013 8:22 REFERENCE ASSISTANT Educ Needs Learning Style Preference Adult Grid Patient : Demonstration, Printed materials Family : None JASMIN DOUGLAS LPN - 03/28/2013 8:22 REFERENCE ASSISTANT Source: [facility] [employer] Document Id: [id number] REFERENCE ASSISTANT!33 RENCE ASSISTANT Miscellaneous - Jasmin Douglas LCarineP.NCarine - 03/28/2013 8:16 AM CST 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 Intake/History Entered On: 03/28/2013 8:21 REFERENCE ASSISTANT Performed On: 03/28/2013 8:16 REFERENCE ASSISTANT by JASMIN DOUGLAS LPN Intake Chief Complaint : Found lumps left breast and axillary come and go Temperature Core : 36.7 DegC(Converted to: 98.1 DegF) Peripheral Pulse Rate : 78 /min Respiratory Rate : 16 /min Heart Rhythm : Regular Systolic Blood Pressure : 122 mmHg Diastolic Blood Pressure : 70 mmHg NIBP Mean : 87 mmHg BP Location : Left upper extremity Blood Pressure Cuff Size : Large Height : 161 cm(Converted to: 5 ft 3 inch(es), 63.39 inch(es)) Actual Weight : 101.2 kg(Converted to: 223 lb 2 oz) Weight Source : Standing scale Dosing Weight Clinic : 101.2 kg Clinic BSA : 2.13 Body Mass Index : 39.04 kg/m2 JASMIN DOUGLAS LPN - 03/28/2013 8:16 REFERENCE ASSISTANT General Info Information Given By : Patient Preferred Communication Mode : Verbal Languages : Bengali JASMIN DOUGLAS [facility] - 03/28/2013 8:16 REFERENCE ASSISTANT Subjective Pain Symptoms : Yes SEN JASMIN R [facility] - 03/28/2013 8:16 REFERENCE ASSISTANT Pain Pain Assessment Grid Pain 1 Location : Breast Laterality : Left Intensity : 3 [place] DOUGLASTANNER [place] [facility] - 03/28/2013 8:16 REFERENCE ASSISTANT Dependent Habits Tobacco Use/Currently Using : Yes Tobacco Use/Advised to Quit : Yes Exposure to Tobacco Smoke : Patient smokes Smoking Status : Current every day smoker DOUGLAS JASMIN [place] [facility] - 03/28/2013 8:16 REFERENCE ASSISTANT Tobacco Use Grid Type : Cigarettes Cigarette Use Packs/Day : 0.5 Last Use : 2 weeks ago JASMIN DOUGLAS [facility] - 03/28/2013 8:16 REFERENCE ASSISTANT Alcohol Use : Yes SEN JASMIN [place] [facility] - 03/28/2013 8:16 REFERENCE ASSISTANT Caffeine Use Grid Caffeine Use : Current Type : Soft drinks Frequency : Daily JASMIN DOUGLSA [facility] - 03/28/2013 8:16 REFERENCE ASSISTANT Recreational Drug Use Grid Drug Use : None DOUGLAS JASMIN [place] [facility] - 03/28/2013 8:16 REFERENCE ASSISTANT Source: [facility] POWERCHART Document Id: [id number] REFERENCE ASSISTANT!49 RENCE ASSISTANT documented in this encounter Plan of Treatment Not on filedocumented as of this encounter Procedures Procedure Name Priority Date/Time Associated Diagnosis Comme nts BACTERIAL CULTURE, Routine 03/28/2013 8:54 AM Res ults for this AEROBIC REFERENCE ASSISTANT procedure are i n the results section. documented in this encounter Results (ABNORMAL) Bacterial Culture, Aerobic (03/28/2013 8:54 AM REFERENCE ASSISTANT) Patholo gist Method Time Signature Wound Culture STALUG <=1 POWERCHART (POSITIVE) HX GS Rare Gram POWERCHART Positive Cocci HXPre STAPH POWERCHART Comment: Light growth Staphylococcus species Identification and susceptibility to fol low. HXFinal STALUG POWERCHART Comment: Light growth Staphylococcus lugdunensis See Susceptibility tab. Specimen (Source) Anatomical Collection Method Collection Time Re ceived Time Location / / Volume Laterality Skin (Axilla, 03/28/2013 8:54 AM Right) REFERENCE ASSISTANT Organism Antibiotic Method Susceptibility Staphylococcus lugdunensis Ciprofloxacin SUSCEPTIBILITY, RYLAN < =1: Susceptible (MCG/ML) Staphylococcus lugdunensis Clindamycin SUSCEPTIBILITY, RYLAN < =0.5: Susceptible (MCG/ML) Staphylococcus lugdunensis Erythromycin SUSCEPTIBILITY, RYLAN < =0.5: Susceptible (MCG/ML) Staphylococcus lugdunensis Gentamicin SUSCEPTIBILITY, RYLAN < =4: Susceptible (MCG/ML) Staphylococcus lugdunensis Legend SUSCEPTIBILITY, RYLAN L egend (MCG/ML) Comment: S = Susceptible; I = Interme diate; R = Resistant; N/R = Not Reported; --- = Not Tested; TFG = Thymidine-dependent strain; ESBL = Extended spectrum beta- lactamase; Alex = Beta-lactamase positive; RYLAN = mcg/mL (mg/L); S* = Predicted susceptible interpretation; R* = Predict ed resistant interpretation; EBL? = Suspected ESBL. Confirmatory tests needed to differentiate ESBL from other beta-lactamases; IB = Inducible Beta-lactamase. Appears in plac e of Susceptible with spec ies known to possess inducible beta-lactamases. Staphylococcus Levofloxacin SUSCEPTIBILITY, RYLAN <=1: Suscept ible lugdunensis (MCG/ML) Staphylococcus Moxifloxacin SUSCEPTIBILITY, RYLAN <=0.5: Susce ptible lugdunensis (MCG/ML) Staphylococcus Oxacillin SUSCEPTIBILITY, RYLAN 0.5: Suscept ible lugdunensis (MCG/ML) Staphylococcus Penicillin SUSCEPTIBILITY, RYLAN <=0.03: Resi stant lugdunensis (MCG/ML) Staphylococcus Rifampin SUSCEPTIBILITY, RYLAN <=1: Suscept ible lugdunensis (MCG/ML) Staphylococcus Trimethoprim + SUSCEPTIBILITY, RYLAN <=0.5/9.5: lugdunensis Sulfamethoxazole (MCG/ML) Susceptible Staphylococcus Tetracycline SUSCEPTIBILITY, RYLAN <=4: Suscept ible lugdunensis (MCG/ML) Staphylococcus Vancomycin SUSCEPTIBILITY, RYLAN 1: Susceptib le lugdunensis (MCG/ML) Zita Saeed APRN, C.N.P., D.N.P. LAB MICROBIOLOGY - GENERAL ORDERABLES Performing Organization Address City/State/ZIP Code Phon e Number POWERCHART documented in this encounter Visit Diagnoses Not on filedocumented in this encounter
--- OUTSIDE RECORDS SUMMARY | 2022-01-29 10:54 | XMS_ITS | Encounter Summary ---
:1970 Author Organization [facility] Address [address] [place] [address] Care Team Providers Name Role Phone Unavailable Primary Care Provider Unavailable Encounter Details Date Type Department Care Team Description 03/19/2012 Hospital Encounter HX NO MAPPING Noah Michaud M.D. [address] [place], [place] [phone] (Wo rk) Social History Tobacco Use Types [...]
--- OUTSIDE RECORDS SUMMARY | 2022-01-29 10:54 | XMS_ITS | Encounter Summary ---
:[address] [facility] Address [address] [place] [address] Care Team Providers Name Role Phone Unavailable Primary Care Provider Unavailable Encounter Details Date Type Department Care Team Description 03/06/2012 Hospital Encounter HX [facility] ME Alcides Whitehead M.D. Social History Tobacco Use Types Packs/Day Years Used Date Smoking Tobacco: Never Assessed Sex Assigned at Date Recorded Not on file documented as of this encounter Last Filed Vital Signs Vital Sign Reading Time Taken Comments Blood Pressure 136/80 03/06/2012 10:56 AM ADULT EDUCATION PROFESSIONAL Pulse 82 03/06/2012 10:56 AM ADULT EDUCATION PROFESSIONAL Temperature - - Respiratory Rate - - Oxygen Saturation - - Inhaled Oxygen Concentration - - Weight 96.7 kg (213 lb 3 oz) 03/06/2012 10:56 AM ADULT EDUCATION PROFESSIONAL Height 161 cm (5' 3.39) 03/06/2012 10:56 AM ADULT EDUCATION PROFESSIONAL Body Mass Index 37.31 03/06/2012 10:56 AM ADULT EDUCATION PROFESSIONAL documented in this encounter Medications at Time of Discharge Medication Sig Dispensed Refills Start Date End Date IBUPROFEN ORAL Take by mouth as needed. 0 011 documented as of this encounter Progress Notes Alcides Whitehead M.D. - 03/06/2012 10:44 AM CST [id number] CHIEF COMPLAINT/REASON FOR VISIT This is a preoperative history and physical. Candy is scheduled to have arthroscopic surgery of her left knee on March 19. Dr. Michaud is going to be doing that here. HISTORY OF PRESENT ILLNESS She has been having problems with her knee for quite a while. It got worse about a month ago. She saw Dr. Benton who was able to aspirate some fluid. He is set her up to see Dr. Michaud and an MRI was done, The Knee X-ray showed an effusion. Her work involves a lot of standing and walking and she [place] with her and feels that all these things have aggravated her knee pain. CURRENT MEDICATION Her only medication is Advil which she takes as needed for pain. ALLERGIES She is allergic to DEMEROL. REVIEW OF SYSTEMS Denies any upper respiratory symptoms. No cough, sore throat. Denies any visual symptoms. Denies anychest pain or wheezing. No shortness of breath. Denies any skin rashes. Denies palpitations or heartmurmur. Has esophageal reflux. No nausea, vomiting. No diarrhea or constipation. No urinary tract symptoms. Has surgical induced menopause. Musculoskeletal, left knee pain and swelling occasionally. Denies any other joint pains. No back pain. Neuro: Negative for headaches, seizure disorder, weakness or paresthesias in her arms or legs, Endocrine, Mental Health, Lymphatic are all negative. MEDICAL PROBLEMS She is a smoker. She has acid reflux. She has had cataract surgery. A lumpectomy. Hysterectomy. No problems with any of these procedures and no problems with anesthesia. IMMUNIZATION STATUS She is due for a Tetanus shot and we will update that today. ADVANCED DIRECTIVES She does not have a Living Will. 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 FAMILY HISTORY Is negative for anesthesia or bleeding complications. VITAL SIGNS Temperature: 36.5-degrees Centigrade. Heart rate: 82. Blood pressure: 136/88. Oxygen saturation: 97% on room air. Height: 161 centimeters. Weight: 96.7 kilograms. Body Mass Index: 37.31. Neck circumference: 42 centimeters. GINGER Score: Is 0. PHYSICAL EXAM HEAD: Is normocephalic, atraumatic. HEENT: External ears are normal. Canals are clear. PERRLA. Extraocular is intact. Pharynx is clear. NECK: Is supple. No lymphadenopathy. No carotid bruits. LUNGS: Are clear. SPINE: Is straight, nontender. HEART: Regular without murmur. ABDOMEN: Is soft. No masses, tenderness, no organomegaly. EXTREMITIES: She maybe has trace edema in the left ankle; right ankle is clear. There is tenderness along the left medial joint line. IMPRESSION/REPORT/PLAN 1) Internal derangement left knee. PLAN Okay to proceed with the anesthesia and surgery per Dr. Michaud and the Services Advisor. Alcides Whitehead M.D./katt Electronically Signed By: ALCIDES WHITEHEAD MD On: 03/08/2012 07:54 AM Source: [facility] MHSDOLBEYNONRADSYS Document Id: [id number] T EDUCATION PROFESSIONAL documented in this encounter Miscellaneous Notes Miscellaneous - Alcides Whitehead M.D. - 03/06/2012 11:31 AM CST Ambulatory Patient Summary [address] [address] Visit Information Name: CANDY CORADO Current Date: 03/06/2012 11:31:28 Physicians Attending Provider: ALCIDES WHITEHEAD MD Primary Care Provider: WILLEM SAEED RN, SUPERVISOR INSPECTION ROOM Your Medications Here is a list of [...] Reaction Symptoms Category Comments Demerol HCl Drug Your Problem List Problem Status Onset Comments Reflux Active 07/05/2005 History of - anxiety state Active 06/30/2007 Nicotine dependence Active 1982 05/31/11 date of onset unknown Your Upcoming Appointments Date Time Location Reason Provider 03/19/2012 10:00 [facility] Surgery OP OP/DS Left knee arthroscopy, partial meniscectomy 04/02/2012 10:30 [facility] post op L knee Eder BARRERA, Lars Davis Your Goals/Additional instructions: Source: [facility] POWERCHART Document Id: [id number] T EDUCATION PROFESSIONAL Martin - Alcides Whitehead M.D. - 03/06/2012 11:31 AM CST Ambulatory Depart Summary [facility] [address] [place] [address] Visit Information Name: CANDY CORADO Visit Date: 03/06/2012 11:31:27 Attending Provider: ALCIDES WHITEHEAD MD Primary Care Provider: WILLEM SAEED RN, SUPERVISOR INSPECTION ROOM CANDY CORADO has been given the following list of [...] your provider for clarification. Additional Information: Source: [facility] EzLikeCHART Document Id: [id number] T EDUCATION PROFESSIONAL Martin - Latrice Hernandez L.P.N. - 03/06/2012 11:00 AM CST Obstructive Sleep Apnea Obstructive Sleep Apnea Entered On: 03/06/2012 11:02 ADULT EDUCATION PROFESSIONAL Performed On: 03/06/2012 11:00 ADULT EDUCATION PROFESSIONAL by LATRICE HERNANDEZ LPN, RT GINGER Screening Known Obstructive Sleep Apnea : No Risk for Sleep Apnea : No LATRICE HERNANDEZ LPN, RT - 03/06/2012 11:00 ADULT EDUCATION PROFESSIONAL GINGER Assessment Do you have high blood pressure or have you been told to take medication for high blood pressure? : No Frequency of Snoring : Never Frequency of Gasping, Choking, Snorting : Never Neck Circumference (cm) : 42/43 Total Number of Historical Features : 0 LATRICE HERNANDEZ LPN, RT - 03/06/2012 11:00 ADULT EDUCATION PROFESSIONAL Source: [facility] POWERCHART Document Id: [id number] T EDUCATION PROFESSIONAL Miscellaneous - Latrice Hernandez L.P.N. 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 left knee surgery with Dr. Michaud on 2011 Temperature Core : 36.5C(Converted to: 97.7DegF) Peripheral Pulse Rate : 82/min Systolic Blood Pressure : 136mmHg Diastolic Blood Pressure : 80mmHg NIBP Mean : 99mmHg BP Location : Left upper extremity Blood Pressure Cuff Size : Large SpO2 : 97% Oxygen Therapy : Room air Height : 161cm(Converted to: 5ft 3inch(es), 63.39inch(es)) Actual Weight : 96.7kg(Converted to: 213lb 3oz) Weight Source : Standing scale Dosing Weight Clinic : 96.70kg Clinic BSA : 2.08 Body Mass Index : 37.31kg/m2 LATRICE HERNANDEZ LPN, RT - 03/06/2012 10:56 ADULT EDUCATION PROFESSIONAL General Info Information Given By : Patient Preferred Communication Mode : Verbal Languages : Georgian LATRICE HERNANDEZ LPN, RT - 03/06/2012 10:56 ADULT EDUCATION PROFESSIONAL Subjective Pain Symptoms : No LATRICE HERNANDEZ LPN, RT - 03/06/2012 10:56 ADULT EDUCATION PROFESSIONAL Dependent Habits Tobacco Use/Currently Using : Yes Exposure to Tobacco Smoke : Patient smokes Smoking Status : Current every day smoker LATRICE HERNANDEZ LPN, RT - 03/06/2012 10:56 ADULT EDUCATION PROFESSIONAL Tobacco Use Grid Type : Cigarettes Cigarette Use Packs/Day : 0.5 LATRICE HERNANDEZ LPN, RT - 03/06/2012 10:56 ADULT EDUCATION PROFESSIONAL Caffeine Use Grid Caffeine Use : Current Type : Soft drinks Frequency : Daily LATRICE HERNANDEZ LPN, RT - 03/06/2012 10:56 ADULT EDUCATION PROFESSIONAL Recreational Drug Use Grid Drug Use : None LATRICE HERNANDEZ LPN, RT - 03/06/2012 10:56 ADULT EDUCATION PROFESSIONAL Allergy Allergies (Active) Demerol HCl Estimated Onset Date: Unspecified ; Created By: WADE DAIGLE LPN; Reaction Status: Active ; Category: Drug ; Substance: Demerol HCl ; Type: Allergy ; Updated By: WADE DAIGLE LPN;Reviewed Date: 02/07/2012 9:05 CDT Source: [facility] Xintu Shuju Document Id: [id number] T EDUCATION PROFESSIONAL documented in this encounter Plan of Treatment Not on filedocumented as of this encounter Visit Diagnoses Not on filedocumented in this encounter
--- OUTSIDE RECORDS SUMMARY | 2022-01-29 10:54 | XMS_ITS | Encounter Summary ---
:1970 Author Organization [facility] Address [address] [place] [address] Care Team Providers Name Role Phone Unavailable Primary Care Provider Unavailable Encounter Details Date Type Department Care Team Description 04/30/2012 Hospital Encounter HX [facility] ME April Dwyer, N.P. [address] [place] [address] 7701 (Wo rk) Social History Tobacco Use Types Packs/Day Years Used Date Smoking Tobacco: Never Assessed Sex Assigned at Date Recorded Not on file documented as of this encounter Last Filed Vital Signs Vital Sign Reading Time Taken Comments Blood Pressure 120/76 04/30/2012 7:59 AM TRANSIT CLERK Pulse 76 04/30/2012 7:59 AM TRANSIT CLERK Temperature - - Respiratory Rate 16 04/30/2012 7:59 AM TRANSIT CLERK Oxygen Saturation - - Inhaled Oxygen Concentration - - Weight 101 kg (222 lb 0.1 oz) 04/30/2012 7:59 AM TRANSIT CLERK Height - - Body Mass Index 38.85 03/19/2012 9:08 AM TRANSIT CLERK documented in this encounter Medications at Time of Discharge Medication Sig Dispensed Refills Start Date End Date IBUPROFEN ORAL Take by mouth as needed. 0 011 documented as of this encounter Progress Notes Nieves Dwyer, N.P. - 04/30/2012 7:51 AM CST [id number] CHIEF COMPLAINT/REASON FOR VISIT Chest cold. HISTORY OF PRESENT ILLNESS This is a 41-year-old female who is here today with complaints of a chest cold. She states her symptoms started about a week ago. She had a fever initially of about 101 degrees and it eventually broke and she has had no fever since. She states her cough is very deep and productive. She has had a little bit of a sore throat. Cough has been significant enough to disrupt her sleep. Today she woke up andnoticed some pressure in her sinuses. She also notes that she has had some chest heaviness. She has had some nausea but no vomiting. She reports multiple people at her place of work have been sick. CURRENT MEDICATIONS New prescriptions today include a Z-Luis to be used as directed, Robitussin with codeine cough syrup 1 teaspoon every 6 hours as needed for cough, and Ventolin inhaler 2 puffs every 4 hours as needed for shortness of breath or wheezing. ALLERGIES Hydrocodone causes vomiting ad Demerol causes nausea. PAST MEDICAL HISTORY/SURGICAL HISTORY Past medical history significant for tobacco use. VITAL SIGNS Temperature 36.7, pulse 76, respirations 16, blood pressure 120/76, O2 sat 97% on room air. PHYSICAL EXAMINATION GENERAL: Patient is alert, oriented times 3, appears in no acute distress. HEENT: Head is normocephalic, atraumatic. Bilateral TMs are shiny tidwell and intact with no erythema or effusion present. Nares are patent. She does report some tenderness with palpation of her maxillarysinuses. Oropharynx is mildly erythematous. No tonsillar exudate or swelling. NECK: Neck is supple with no lymphadenopathy. HEART: Heart rate is regular, S1-S2 is present. No murmur or rub. LUNGS: She has a slight expiratory wheeze noted in the left upper lobe and a slight crackle in the left base. IMPRESSION/REPORT/PLAN Bronchitis. PLAN: Prescriptions for Zithromax, Robitussin with codeine cough syrup and Ventolin were prescribed.She is to rest and increase her fluids. Suggested that she use the inhaler 4 times a day regardless of symptoms for the next 2-3 days and then taper off after that. If her symptoms are not improving asanticipated, she can return to the clinic for followup. Questions have been addressed and she is agreeable to this plan of care. PATIENT EDUCATION #1 Patient/parent/caregiver is ready to learn. No apparent learning barriers were identified. Learning preferences included listening. Explained diagnosis and treatment plan. Patient/parent/caregiver expressed understanding of the content. Chanel Zaragoza/amanda Electronically Signed By: NIEVES DWYER FOUNTAIN ROLLER ASSEMBLER On: 05/06/2012 11:31 AM Source: [facility] MHSDOLBEYNONRADSYS Document Id: [id number] SIT CLERK documented in this encounter Miscellaneous Notes Miscellaneous - Nieves Dwyer NTung - 04/30/2012 8:28 AM CST Ambulatory Patient Summary [address] [address] Visit Information Name: CANDY GRULLON [facility] Number: [id number] Current Date: 04/30/2012 08:28:43 Physicians Attending Provider: NIEVES DWYER NP Primary Care Provider: WILLEM SAEED RN, SUPERVISOR ACCOUNTS RECEIVABLE Your Medications Here is a list of [...] needed for Shortness of breath / Wheezing azithromycin (Zithromax Z-Luis 250 mg oral tablet) 2 tablets on day 1, then 1 tablet on days 2-5 Oralas directed for 5 Days codeine-guaifenesin (Guaiatussin AC 10 mg-100 mg/5 mL [...] 08:30 [facility] follow up L knee Eder BARRERA, Lars Davis Your Goals/Additional instructions: Source: [facility] POWERCHART Document Id: [id number] SIT CLERK Miscellkatie - Nieves Dwyer N.P. - 04/30/2012 8:28 AM CST Ambulatory Depart Summary [address] [place] [address] Visit Information Name: CANDY GRULLON [facility] Number: [id number] Visit Date: 04/30/2012 08:28:43 Attending Provider: NIEVES DWYER FOUNTAIN ROLLER ASSEMBLER Primary Care Provider: WILLEM SAEED RN, SUPERVISOR ACCOUNTS RECEIVABLE CANDY GRULLON has been given the following [...] needed for Shortness of breath / Wheezing azithromycin (Zithromax Z-Luis 250 mg oral tablet) 2 tablets on day 1, then 1 tablet on days 2-5 Oralas directed for 5 Days codeine-guaifenesin (Guaiatussin AC 10 mg-100 mg/5 mL oral syrup) 5 mL Oral every 6 hours as needed for cough and congestion ibuprofen (Advil) Oral as needed Attention: If you have any medications at home that are not on this list, DO NOT take them until youcontact your provider for clarification. Additional Information: Source: [facility] POWERCHART Document Id: [id number] SIT CLERK Martin - Nieves Dwyer N.P. - 04/30/2012 8:26 AM CST School or Work Excuse School or Work Excuse Entered On: 04/30/2012 8:27 TRANSIT CLERK Performed On: 04/30/2012 8:26 TRANSIT CLERK by NIEVES DWYER NP School or Work Excuse Date Patient Seen : 04/30/2012 TRANSIT CLERK Date of Return to School/Work Without Restrictions : 04/30/2012 TRANSIT CLERK Comment : Candy was seen today for bronchitis. NIEVES DWYER NP - 04/30/2012 8:26 TRANSIT CLERK Source: [facility] POWERCHART Document Id: [id number] SIT CLERK Miscellaneous - Johnnie Sher L.PCarineN. 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 x1wk Temperature Core : 36.7C(Converted to: 98.1DegF) Peripheral Pulse Rate : 76/min Respiratory Rate : 16/min Systolic Blood Pressure : 120mmHg Diastolic Blood Pressure : 76mmHg NIBP Mean : 91mmHg BP Location : Left upper extremity Blood Pressure Cuff Size : Regular SpO2 : 97% Oxygen Therapy : Room air Actual Weight : 100.7kg(Converted to: 222lb 0oz) Dosing Weight Clinic : 100.70kg JOHNNIE SHER LPN - 04/30/2012 7:59 TRANSIT CLERK Subjective Pain Symptoms : No JOHNNIE SHER LPN - 04/30/2012 7:59 TRANSIT CLERK Dependent Habits Tobacco Use/Currently Using : Yes Exposure to Tobacco Smoke : Patient smokes Smoking Status : Current some day smoker JOHNNIE SHER LPN - 04/30/2012 7:59 TRANSIT CLERK Tobacco Use Grid Type : Cigarettes Cigarette Use Packs/Day : 0.5 JOHNNIE SHER LPN - 04/30/2012 7:59 TRANSIT CLERK Alcohol Use : Yes JOHNNIE SHER LPN - 04/30/2012 7:59 TRANSIT CLERK Caffeine Use Grid Caffeine Use : Current Type : Soft drinks Frequency : Daily JOHNNIE SHER LPN - 04/30/2012 7:59 TRANSIT CLERK Recreational Drug Use Grid Drug Use : None JOHNNIE SHER LPN - 04/30/2012 7:59 TRANSIT CLERK Allergy Allergies (Active) Demerol HCl Estimated Onset Date: Unspecified ; Created By: WADE DAIGLE LPN; Reaction Status: Active ; Category: Drug ; Substance: Demerol HCl ; Type: Allergy ; Updated By: WADE DAIGLE LPN;Reviewed Date: 04/02/2012 10:16 TRANSIT CLERK hydrocodone-acetaminophen Estimated Onset Date: Unspecified ; Created By: MICHELLE JOHNSON RN; Reaction Status: Active ; Category: Drug ; Substance: hydrocodone-acetaminophen ; Type: Allergy ; Severity: Severe ; Updated By: MICHELLE JOHNSON RN; Source: Patient ; Reviewed Date: 04/02/2012 10:16 TRANSIT CLERK Source: [facility] POWERCHART Document Id: [id number] SIT CLERK Miscellaneous - Johnnie Sher L.P.N. - 04/30/2012 7:59 AM CST Health Assessment Health Assessment Entered On: 04/30/2012 8:04 TRANSIT CLERK Performed On: 04/30/2012 7:59 TRANSIT CLERK by JOHNNIE SHER LPN Health Assessment Complete Health Assessment Complete or Modified : Annual Health Assessment Annual Health Assessment Completed : Yes JOHNNIE SHER LPN - 04/30/2012 7:59 TRANSIT CLERK Nutrition Nutrition Risk Factors by History Adult : None JOHNNIE SHER LPN - 04/30/2012 7:59 TRANSIT CLERK Functional Current Daily Living Assistance : None JOHNNIE SHER LPN - 04/30/2012 7:59 TRANSIT CLERK Dependent Habits Tobacco Use/Currently Using : Yes Exposure to Tobacco Smoke : Patient smokes Smoking Status : Current some day smoker JOHNNIE SHER LPN - 04/30/2012 7:59 TRANSIT CLERK Tobacco Use Grid Type : Cigarettes Cigarette Use Packs/Day : 0.5 JOHNNIE SHER LPN - 04/30/2012 7:59 TRANSIT CLERK Alcohol Use : Yes JOHNNIE SHER LPN - 04/30/2012 7:59 TRANSIT CLERK Caffeine Use Grid Caffeine Use : Current Type : Soft drinks Frequency : Daily JOHNNIE SHER [facility] - 04/30/2012 7:59 TRANSIT CLERK Recreational Drug Use Grid Drug Use : None JOHNNIE SHER [facility] - 04/30/2012 7:59 TRANSIT CLERK AUDIT Tool How Often Do You Have A Drink : 2 to 4 times a month How Many Drinks in a Day When Drinking : 1 or 2 Six or More Drinks On One Occassion : Never Audit Phase 1 Score : 2 JOHNNIE SHER [facility] - 04/30/2012 7:59 TRANSIT CLERK Psychosocial Domestic Abuse Concerns : None JOHNNIE SHER [facility] - 04/30/2012 7:59 TRANSIT CLERK Advance Directive Advanced Directives : Yes JOHNNIE SHER [facility] - 04/30/2012 7:59 TRANSIT CLERK Educ Needs Learning Style Preference Adult Grid Patient : None Family : None JOHNNIE SHER [facility] - 04/30/2012 7:59 TRANSIT CLERK Source: [facility] POWERCHART Document Id: [id number] SIT CLERK documented in this encounter Plan of Treatment Not on filedocumented as of this encounter Visit Diagnoses Not on filedocumented in this encounter
--- OUTSIDE RECORDS SUMMARY | 2022-01-29 10:55 | XMS_ITS | Encounter Summary ---
:1970 Author Organization [facility] Address [address] [place] [address] Care Team Providers Name Role Phone Unavailable Primary Care Provider Unavailable Encounter Details Date Type Department Care Team Description 02/05/2008 Hospital Encounter HX [facility] Neville Sarabia, INPT/OBSRV M.D. [id number] [phone] (Wo rk) Social History Tobacco Use Types Packs/Day Years Used Date Smoking Tobacco: Never Assessed Sex Assigned at Date Recorded Not on file documented as of this encounter Plan of Treatment Not on filedocumented as of this encounter Visit Diagnoses Not on filedocumented in this encounter
--- OUTSIDE RECORDS SUMMARY | 2022-01-29 10:55 | XMS_ITS | Encounter Summary ---
:1970 Author Organization [facility] Address [address] [place] [address] Care Team Providers Name Role Phone Unavailable Primary Care Provider Unavailable Encounter Details Date Type Department Care Team Description 07/05/2009 Hospital Encounter HX NO MAPPING Brie Smith M.D. [address] [place] [address] [phone] (Wo rk) Social History Tobacco Use Types Packs/Day Years Used Date Smoking Tobacco: Never Assessed Sex Assigned at Date Recorded Not on file documented as of this encounter Plan of Treatment Not on filedocumented as of this encounter Visit Diagnoses Not on filedocumented in this encounter
--- OUTSIDE RECORDS SUMMARY | 2022-01-29 10:55 | XMS_ITS | Encounter Summary ---
:1970 Author Organization [facility] Address [address] [place] [address] Care Team Providers Name Role Phone Unavailable Primary Care Provider Unavailable Encounter Details Date Type Department Care Team Description 08/25/2011 Hospital Encounter HX NO MAPPING Provider, Historical Social History Tobacco Use Types [...]
--- OUTSIDE RECORDS SUMMARY | 2022-01-29 10:55 | XMS_ITS | Encounter Summary ---
:1970 Author Organization [facility] Address [address] [place] [address] Care Team Providers Name Role Phone Unavailable Primary Care Provider Unavailable Encounter Details Date Type Department Care Team Description 02/23/2012 Hospital Encounter [facility]X [facility] XRAY Provider, Histori anahi Social History Tobacco Use Types Packs/Day Years [...]
--- OUTSIDE RECORDS SUMMARY | 2022-01-29 10:55 | XMS_ITS | Encounter Summary ---
:1970 Author Organization [facility] Address [address] [place] [address] Care Team Providers Name Role Phone Unavailable Primary Care Provider Unavailable Encounter Details Date Type Department Care Team Description 08/09/2011 Hospital Encounter HX NO MAPPING Provider, Historical [...]
--- OUTSIDE RECORDS SUMMARY | 2022-01-29 10:55 | XMS_ITS | Encounter Summary ---
:1970 Author Organization [facility] Address [address] [place] [address] Care Team Providers Name Role Phone Unavailable Primary Care Provider Unavailable Encounter Details Date Type Department Care Team Description 02/23/2012 Hospital Encounter HX NO MAPPING Lars Gaines, [...]
--- OUTSIDE RECORDS SUMMARY | 2022-01-29 10:55 | XMS_ITS | Encounter Summary ---
:1970 Author Organization [facility] Address [address] [place] [address] Care Team Providers Name Role Phone Unavailable Primary Care Provider Unavailable Encounter Details Date Type Department Care Team Description 07/06/2011 Hospital Encounter HX NO MAPPING Provider, Historical [...]
--- OUTSIDE RECORDS SUMMARY | 2022-01-29 10:55 | XMS_ITS | Encounter Summary ---
:1970 Author Organization [facility] Address [address] [place] [address] Care Team Providers Name Role Phone Unavailable Primary Care Provider Unavailable Encounter Details Date Type Department Care Team Description 09/03/2002 Hospital Encounter HX NO MAPPING Provider, Historical Social History Tobacco Use Types Packs/Day Years Used Date Smoking Tobacco: Never Assessed Sex Assigned at Date Recorded Not on file documented as of this encounter Plan of Treatment Not on filedocumented as of this encounter Visit Diagnoses Not on filedocumented in this encounter
--- OUTSIDE RECORDS SUMMARY | 2022-01-29 10:55 | XMS_ITS | Encounter Summary ---
:1970 Author Organization [facility] Address [address] [place] [address] Care Team Providers Name Role Phone Unavailable [...]
--- OUTSIDE RECORDS SUMMARY | 2022-01-29 10:55 | XMS_ITS | Encounter Summary ---
:1970 Author Organization [facility] Address [address] [place] [id number] Care Team Providers Name Role Phone Unavailable Primary Care Provider Unavailable Encounter Details Date Type Department Care Team Description 05/16/2011 Hospital Encounter [facility]X [facility] ED Misael Mann M.D. Social History Tobacco Use Types Packs/Day Years Used Date Smoking Tobacco: Never Assessed Sex Assigned at Date Recorded Not on file documented as of this encounter Last Filed Vital Signs Vital Sign Reading Time Taken Comments Blood Pressure 131/91 05/16/2011 9:39 PM APPLICATION SUPPORT Pulse - - Temperature - - Respiratory Rate 18 05/16/2011 9:39 PM APPLICATION SUPPORT Oxygen Saturation - - Inhaled Oxygen Concentration - - Weight - - Height - - Body Mass Index - - documented in this encounter Discharge Summaries Cristy rDaper R.N. - 05/16/2011 9:52 PM CST ED Discharge Instructions [address] [address] Name: CANDY VALDEZ Date of : 1970 12:00 AM Visit Date: 05/16/2011 8:07 PM Address: [address] [place] [address] Primary Care Provider: CORTEZ WAITE MD IMPORTANT:[facility] in [place] would like to thank you for allowing us to assist you with your healthcare needs. The following includes patient education materials and information regarding your injury/illness. Chief Complaint: Chest Pain:Pressure/Tightness; Chest Pain Follow-Up Instructions: With: Address: When: CORTEZ WAITE [address] [place] [id number] Business (1) Within 1 - 2weeks Comments: With: Address: When: Return to Emergency Department Within As Needed Comments: If symptoms worsen Patient Education Materials: [id number] CHEST PAIN:UNCERTAIN CAUSE Based on your exam today, the exact cause of your chest pain is not certain. Your condition does notseem serious at this time, and your pain does not appear to be coming from your heart. However, sometimes the signs of a serious problem take more time to appear. Therefore, watch for the warning signslisted below. HOME CARE: 1. Rest today and avoid strenuous activity. 2. Take any prescribed medicine as directed. FOLLOW UP with your doctor or this facility as instructed or if you do not start to feel better within 24 hours. [NOTE: If an X-ray or EKG (cardiogram) was made, it will be reviewed by another specialist. You willbe notified of any new findings that may affect your care.] GET PROMPT MEDICAL ATTENTION if any of the following occur: ?? A change in the type of pain: if it feels different, becomes more severe, lasts longer, or beginsto spread into your shoulder, arm, neck, jaw or back ?? Shortness of breath or increased pain with breathing ?? Weakness, dizziness, or fainting ?? Cough with dark colored sputum (phlegm) or blood ?? Fever over 100.0?? F (37.8?? C) Swelling, pain or redness in one leg ?? [id number] [employer], [address] [place] [address]. All rights reserved. This information is not intended as a substitute for professional medical care. Always follow your healthcare professional's instructions. [id number] HOW TO QUIT SMOKING Smoking is one of the hardest habits to break. About half of all those who have ever smoked have been able to quit, and most of those (about 70%) who still smoke want to quit. Here are some of the bestways to stop smoking. KEEP TRYING: It takes most smokers about 8 tries before they are finally able to fully quit. So, the more often you try and fail, the better your chance of quitting the next time! So, don't give up! GO COLD TURKEY: Most ex-smokers quit cold turkey. Trying to cut back gradually doesn't seem to work as well, perhapsbecause it continues the smoking habit. Also, it is possible to fool yourself by inhaling more whilesmoking fewer cigarettes. This results in the same amount of nicotine in your body! GET SUPPORT: Support programs can make an important difference, especially for the heavy smoker. These groups offer lectures, methods to change your behavior and peer support. Call the free national Quitline for more information. 838-SDVF-NHZ (103-808-0291). Low-cost or free programs are offered by many hospitals,local chapters of the [employer] (081-513-0397) and the [employer] (350-196-9056). Support at home is important too. Non-smokers can help by offering praise and encouragement. If the smoker fails to quit, encourage them to try again! BZBV-OYU-EFETIUA MEDICINES: For those who can't quit on their own, Nicotine Replacement Therapy (NRT) may make quitting much easier. Certain aids such as the nicotine patch, gum and lozenge are available without a prescription. However, it is best to use these under the guidance of your doctor. The skin patch provides a steady supply of nicotine to the body. Nicotine gum and lozenge gives temporary bursts of low levels of nicotine. Both methods take the edge off the craving for cigarettes. WARNING: If you feel symptoms of nicotine overdose, such as nausea, vomiting, dizziness, weakness, or fast heartbeat, stop using these andsee your doctor. PRESCRIPTION MEDICINES: After evaluating your smoking patterns and prior attempts at quitting, your doctor may offer a prescription medicine such as bupropion (Zyban, Wellbutrin), varenicline (Chantix, Champix), a niocotine inhaler or nasal spray. Each has its unique advantage and side effects which your doctor can review with you. HEALTH BENEFITS OF QUITTING: The benefits of quitting start right away and keep improving the longer you go without smoking: ?? 20 minutes: blood pressure and pulse return to normal ?? 8 hours: oxygen levels return to normal ?? 2 days: ability to smell and taste begins to improve as damaged nerves start to regrow ?? 2-3 weeks: circulation and lung function improves ?? 1-9 months: decreased cough, congestion and shortness of breath; less tired ?? 1 year: risk of heart attack decreases by half ?? 5 years: risk of lung cancer decreases by half; risk of stroke becomes the same as a non-smoker For information about how to quit smoking, visit the following links: ?? National Cancer [place] , Clearing the Air, Quit Smoking Today - an online booklet. http://www.smokefree.gov/pubs/clearing_the_air.pdf ?? Smokefree.gov http://smokefree.gov/ QuitNet http://www.quitnet.com/ ?? 1380-6200 [employer], [address] [place] [address], [place] [address]. All rights reserved. This information is not intended as a substitute for professional medical care. Always follow your healthcare professional's instructions. ED Tests and Procedures: Order Status Glucose Level Canceled Oxygen - ER Completed Troponin T Completed XR Chest 2 Views Completed Basic Metabolic Panel Completed CBC (includes Auto Differential) Completed CKMB Completed Creatine Kinase Completed Automated Diff-5 Part Completed Discharge Prescriptions & Home Medications: Medication/Strength Dose Route Frequency Indications/Special Instructions/Comments ibuprofen (Advil) Oral as needed Attention: If you have any medications at home not on this list, DO NOT take them until you contact your provider for clarification. Medication Reconciliation: Reconciliation is a process of identifying the most accurate list of all medications a patient is taking - including name, dosage, frequency, and route - and using this list to provide to the patient information about how to take those medications. CANDY VALDEZ or jad has reviewed the home medications you have listed with us. Review the following instructions: You have NOT received any prescriptions and you have told us you are not currently taking any home medications You have NOT received any prescriptions. You have been provided a discharge medications list and you may CONTINUE taking your medications as previously prescribed by your regular providers. You have received the listed prescriptions and BEGIN all listed prescriptions as directed. Since you have listed no home medications, please check with your family doctor if you are taking any other medications. You have received the listed prescriptions and BEGIN all listed prescriptions as directed. Youhave been provided a discharge medications list and you may CONTINUE all home medications as previously prescribed by your regular providers. You have received the listed prescriptions and BEGIN all listed prescriptions as directed. Youhave been provided a discharge medications list. The following CHANGES have been made to your medication list; Otherwise, CONTINUE all home medications as previously prescribed by your regular provider. IMPORTANT: We examined and treated you today on an emergency basis only. This was not a substitute for, or an effort to provide, complete medical care. In most cases, you must let your doctor check youagain. Tell your doctor about any new or lasting problems. We cannot recognize and treat all injuries or illnesses in one Emergency Department visit. If you had special tests, such as EKG's or X- rays, we will review them again within 24 hours. We will call you if there are any new suggestions. Please follow the instructions above carefully. If you are being transferred to another facility your followup plan of care will be determined by the receiving facility. If you are a patient that is being discharged from the Emergency Department after receiving narcotics or other medications that may impair your judgment you may be a risk to yourself or others if you operate a motor vehicle. We recommend that you arrange a ride home with a responsible green party. IJOSÉ MIGUEL THERESA MARIE , or responsible green party have received this information and my questions have been answered. I have discussed any challenges I see with this plan with the nurse or physician. Patient Signature or Responsible Constitution Party/Relationship Date/Time Provider Signature Date/Time Medication Reconciliation: Reconciliation is a process of identifying the most accurate list of all medications a patient is taking - including name, dosage, frequency, and route - and using this list to provide to the patient information about how to take those medications. CANDY VALDEZ or designee has reviewed the home medications you have listed with us. Review the following instructions: You have NOT received any prescriptions and you have told us you are not currently taking any home medications You have NOT received any prescriptions. You have been provided a discharge medications list and you may CONTINUE taking your medications as previously prescribed by your regular providers. You have received the listed prescriptions and BEGIN all listed prescriptions as directed. Since you have listed no home medications, please check with your family doctor if you are taking any other medications. You have received the listed prescriptions and BEGIN all listed prescriptions as directed. Youhave been provided a discharge medications list and you may CONTINUE all home medications as previously prescribed by your regular providers. You have received the listed prescriptions and BEGIN all listed prescriptions as directed. Youhave been provided a discharge medications list. The following CHANGES have been made to your medication list; Otherwise, CONTINUE all home medications as previously prescribed by your regular provider. IMPORTANT: We examined and treated you today on an emergency basis only. This was not a substitute for, or an effort to provide, complete medical care. In most cases, you must let your doctor check youagain. Tell your doctor about any new or lasting problems. We cannot recognize and treat all injuries or illnesses in one Emergency Department visit. If you had special tests, such as EKG's or X- rays, we will review them again within 24 hours. We will call you if there are any new suggestions. Please follow the instructions above carefully. If you are being transferred to another facility your followup plan of care will be determined by the receiving facility. If you are a patient that is being discharged from the Emergency Department after receiving narcotics or other medications that may impair your judgment you may be a risk to yourself or others if you operate a motor vehicle. We recommend that you arrange a ride home with a responsible green party. JOSÉ MIGUEL Barrios THERESA MARIE , or responsible green party have received this information and my questions have been answered. I have discussed any challenges I see with this plan with the nurse or physician. Patient Signature or Responsible Constitution Party/Relationship Date/Time Provider Signature Date/Time This document has images extracted. Please consider using [facility] for all your patient education needs. Source: Where Document Id: [id number] ICATION SUPPORT Cristy Draper R.N. - 05/16/2011 9:52 PM CST ED Depart Summary [facility] Emergency Department Clinical Discharge Summary PERSON INFORMATION Name CANDY VALDEZ Age 40 Years 1970 12:00 AM Sex Female Language [place] Islander PCP CORTEZ WAITE MD Marital Status Single Visit Id Visit Reason Chest Pain:Pressure/Tightness; Chest Pain Specialty Enc Type Emergency Med Service Emergency Medicine Referred by Track Group [facility] ED Discharge 05/16/2011 9:52 PM Tracking Id [id number] Checkout 05/16/2011 9:52 PM Checkin 05/16/2011 8:07 PM Acuity 3 -Urgent Dispo Type * Discharged to Home or Self Care Arrival 05/16/2011 8:07 PM Reg Status Complete LOS 000 01:45 Address: [address] [place] [address] Comment: PROVIDER INFORMATION Provider Role Provider Contact Time CRISTY MEYER INCOME AUDITOR Nurse 05/16/11 20:24 DIAGNOSIS Chest Pain, Atypical Comment: PATIENT EDUCATION INFORMATION Instructions: CHEST PAIN, Uncertain Cause; SMOKING CESSATION Follow up: With: Address: When: CORTEZ WAITE [address] [place] [address] [facility] (1) Within 1 - 2weeks Comments: With: Address: When: Return to Emergency Department Within As Needed Comments: If symptoms worsen Source: Where Document Id: [id number] ICATION SUPPORT documented in this encounter Medications at Time of Discharge Medication Sig Dispensed Refills Start Date End Date IBUPROFEN ORAL Take by mouth as needed. 0 011 documented as of this encounter Nursing Notes Cristy Draper R.N. - 05/16/2011 9:33 PM CST ED Pain Assessment ED Pain Assessment Entered On: 05/16/2011 21:33 APPLICATION SUPPORT Performed On: 05/16/2011 21:33 APPLICATION SUPPORT by CRISTY MEYER RN Pain Assessment Pain Symptoms : Yes CRISTY MEYER RN - 05/16/2011 21:33 APPLICATION SUPPORT Pain Pain Assessment Grid Pain 1 Location : Chest Laterality : Left Intensity : 0 CRISTY MEYER RN - 05/16/2011 21:33 APPLICATION SUPPORT Source: [facility] [employer] Document Id: [id number] APPLICATION SUPPORT!9 ICATION SUPPORT Cristy Draper R.N. - 05/16/2011 8:14 PM CST ED Primary Assessment ED Primary Assessment Entered On: 05/16/2011 20:22 APPLICATION SUPPORT Performed On: 05/16/2011 20:14 APPLICATION SUPPORT by CRISTY MEYER RN Reason For Visit Problems(Active) Reflux Name of Problem: Reflux ; Onset Date: 07/05/2005 ; Recorder: WADE DAIGLE LPN; Confirmation: Confirmed ; Classification: Nursing ; Code: [id number] ; Contributor System: [email or web address] ; Last Updated: 10/06/2010 8:35 CDT ; Life Cycle Date: 10/06/2010 ; Life Cycle Status: Active ; Responsible Provider: WADE DAIGLE LPN; Vocabulary: SNOMED CT Diagnoses(Active) Chest Pain:Pressure/Tightness Date: 05/16/2011 ; Diagnosis Type: Reason For Visit ; Confirmation: Complaint of ; Clinical Dx: Chest Pain:Pressure/Tightness ; Classification: Medical ; Clinical Service:Emergency medicine ; Code: ICD-9-CM ; Probability: 0 ; Diagnosis Code: 786.59 Triage Chief Complaint Description : 40 year old female presents to the ED via private vehicle with main c/o chest pain, tightness that started at 1-2 pm, c/o nausea, feeling flushed, and clammy. Information Given By : Patient Accompanied By : Alone Mode of Arrival ED : Private vehicle Track : Medical Languages : [place] Vital Signs Assessed : Yes Treatments Prior to Arrival : Other: ADVIL 1830 CRISTY MEYER RN - 05/16/2011 20:14 APPLICATION SUPPORT Vital Signs Temperature Core : 36.8C(Converted to: 98.2DegF) Apical Heart Rate : 95/min Respiratory Rate : 24/min (HI) Systolic Blood Pressure : 155mmHg (HI) Diastolic Blood Pressure : 91mmHg (>HHI) NIBP Mean : 112mmHg BP Location : Left upper extremity SpO2 : 96% Oxygen Therapy : Room air Weight Source : Other: per patient Estimated Weight : 86.4kg Estimated Weight Conversion to Pounds : 190.08lb CRISTY MEYER RN - 05/16/2011 20:14 APPLICATION SUPPORT Pain Assessment Pain Symptoms : Yes CRISTY MEYER RN - 05/16/2011 20:14 APPLICATION SUPPORT Pain Pain Assessment Grid Pain 1 Location : Chest Laterality : Left Intensity : 3 Time Pattern : Acute Onset : Sudden Quality : Aching, Other: irritating Pain Radiation : Yes (Comment: back [CRISTY MEYER RN - 05/16/2011 20:14 APPLICATION SUPPORT] ) Aggravating Factors : None Alleviating Factors : Rest Associated Symptoms : Nausea, Sweating Interventions : MD notified, Rest CRISTY MEYER RN - 05/16/2011 20:14 APPLICATION SUPPORT ED Physician Notification Time ED Physician Notification Time : 05/16/2011 20:19 APPLICATION SUPPORT CRISTY MEYER RN - 05/16/2011 20:14 APPLICATION SUPPORT CARLA CARLA Level 1 : No CARLA Level 2 : No CARLA Level 3 : Many Vital Signs CARLA : Danger zone (HR > 100, RR > 20, SaO2 < 92%) CRISTY MEYER RN - 05/16/2011 20:14 APPLICATION SUPPORT DCP GENERIC CODE Tracking Acuity : 3 -Urgent Tracking Group : [facility] ED CRISTY MEYER RN - 05/16/2011 20:14 APPLICATION SUPPORT Allergy Latex Reaction : No Latex Hives/Itch : No Latex Congestion/Eye Irr/Breathing : No Latex Symptom Progression : No Latex Previous Test : No CRISTY MEYER RN - 05/16/2011 20:14 APPLICATION SUPPORT Allergies (Active) Demerol HCl Estimated Onset Date: Unspecified ; Created By: WADE DAIGLE LPN; Reaction Status: Active ; Category: Drug ; Substance: Demerol HCl ; Type: Allergy ; Updated By: WADE DAIGLE LPN;Reviewed Date: 05/16/2011 20:20 APPLICATION SUPPORT ID Screen Drug Resistant Organism : No CRISTY MEYER RN - 05/16/2011 20:14 APPLICATION SUPPORT Immunizations Immunizations Current : Yes Last Tetanus : > 5 years Pneumovac : None Influenza : None CRISTY MEYER RN - 05/16/2011 20:14 APPLICATION SUPPORT Respiratory Airway : Patent Respirations : Unlabored Respiratory Pattern : Regular Oxygen Start Time : 05/16/2011 20:20 APPLICATION SUPPORT Oxygen Therapy : Nasal Cannula Oxygen Flow Rate : 2L/min CRISTY MEYER RN - 05/16/2011 20:14 APPLICATION SUPPORT Cardiovascular Heart Rhythm : Regular Skin Color : Normal for ethnicity Skin Description : Clammy Skin Temperature : Warm CRISTY MEYER RN 05/16/2011 20:14 APPLICATION SUPPORT Neurological Level of Consciousness : Alert Orientation : Oriented x 3 Characteristics of Speech : Appropriate for age Neuro Patient Stated Symptoms : None Gait : Steady Swallowing Difficulty/Aspiration Risk : None CRISTY MEYER RN - 05/16/2011 20:14 APPLICATION SUPPORT ED Psychosocial Affect/Behavior : Calm, Cooperative, Appropriate Domestic Abuse Concerns : None Emotional Support Available : Yes CRISTY MEYER RN - 05/16/2011 20:14 APPLICATION SUPPORT Gastrointestinal Nutrition ED : Adequate CRISTY MEYER RN - 05/16/2011 20:14 APPLICATION SUPPORT /OB Assessment Patient Stated Symptoms : None CRISTY MEYER RN - 05/16/2011 20:14 APPLICATION SUPPORT Integumentary Integumentary Patient Stated Symptoms : None Skin Turgor : Elastic Skin Integrity : Intact Mucous Membrane Color : [place] Mucous Membrane Description : Moist Skin Color : Normal for ethnicity Skin Description : Dry Skin Temperature : Warm CRISTY MEYER RN - 05/16/2011 20:14 APPLICATION SUPPORT Musculoskeletal Fall Prevention Education Provided : CRISTY MERAZ RN - 05/16/2011 20:14 APPLICATION SUPPORT Social Habits Tobacco Use/Currently Using : Yes Smoking Status : Current every day smoker CRISTY MEYER RN - 05/16/2011 20:14 APPLICATION SUPPORT Tobacco Use Grid Type : Cigarettes Cigarette Use Packs/Day : 0.5 CRISTY MEYER RN - 05/16/2011 20:14 APPLICATION SUPPORT Alcohol Use Grid Alcohol Use : Yes Frequency : Occasionally CRISTY MEYER RN - 05/16/2011 20:14 APPLICATION SUPPORT Recreational Drug Use Grid Drug Use : None CRISTY MEYER RN - 05/16/2011 20:14 APPLICATION SUPPORT Source: Where Document Id: [id number] APPLICATION SUPPORT!114 ICATION SUPPORT documented in this encounter ED Notes Cristy Draper R.N. - 05/16/2011 9:38 PM CST ED Disposition Summary ED Disposition Summary Entered On: 05/16/2011 21:38 APPLICATION SUPPORT Performed On: 05/16/2011 21:38 APPLICATION SUPPORT by CRISTY MEYER RN ED Disposition Summary Accompanied By : Alone Mode of Discharge : Ambulatory Transportation : Private vehicle Printed Discharge Instructions Given to Patient : Yes Patient Status at Discharge from ED : Improved CRISTY MEYER RN - 05/16/2011 21:38 APPLICATION SUPPORT Source: Where Document Id: [id number] APPLICATION SUPPORT!7 ICATION SUPPORT Cristy Draper R.N. - 05/16/2011 9:36 PM CST ED Nurse Reassess ED Nurse Reassess Entered On: 05/16/2011 21:37 APPLICATION SUPPORT Performed On: 05/16/2011 21:36 APPLICATION SUPPORT by CRISTY MEYER RN Pain Assessment Pain Symptoms : Yes CRISTY MEYER RN - 05/16/2011 21:36 APPLICATION SUPPORT Pain Pain Assessment Grid Pain 1 Location : Chest Intensity : 9 CRISTY MEYER RN - 05/16/2011 21:36 APPLICATION SUPPORT Resp Reassess Respiratory Patient Stated Symptoms : None Distress : None Airway : Patent Respirations : Unlabored Cough : None CRISTY MEYER RN - 05/16/2011 21:36 APPLICATION SUPPORT CV Reassess CV Patient Stated Symptoms : None Skin Description : Dry Skin Temperature : Warm Nail Bed Color : [place] Capillary Refill : Less than 2 seconds Heart Rhythm : Regular Cardiac Rhythm : Sinus rhythm CRISTY MEYER RN - 05/16/2011 21:36 APPLICATION SUPPORT Neuro Reassess Neuro Patient Stated Symptoms : None Level of Consciousness : Alert Orientation : Oriented x 3 Characteristics of Speech : Appropriate for age Gait : Steady CRISTY MEYER RN - 05/16/2011 21:36 APPLICATION SUPPORT [place] Coma Eye Opening Response [place] : Spontaneously Best Verbal Response [place] : Oriented Best Motor Response [place]mo : Obeys simple commands Elmo Coma Score : 15 CRISTY MEYER RN - 05/16/2011 21:36 APPLICATION SUPPORT Behavioral Health Screen/Safety Reassmt Affect/Behavior : Calm, Cooperative, Appropriate CRISTY MEYER RN - 05/16/2011 21:36 APPLICATION SUPPORT GI Reassess GI Patient Stated Symptoms : None CRISTY MEYER RN - 05/16/2011 21:36 APPLICATION SUPPORT /OB Reassess Patient Stated Symptoms : None CRISTY MEYER RN - 05/16/2011 21:36 APPLICATION SUPPORT Source: [facility] [place] Document Id: [id number] APPLICATION SUPPORT!39 ICATION SUPPORT Cristy Draper R.N. - 05/16/2011 9:29 PM CST ED Treatments and Procedures ED Treatments and Procedures Entered On: 05/16/2011 21:30 APPLICATION SUPPORT Performed On: 05/16/2011 21:29 APPLICATION SUPPORT by CRISTY MEYER RN Oxygen Therapy Oxygen Start Time : 05/16/2011 20:20 APPLICATION SUPPORT Oxygen Therapy : Nasal Cannula Oxygen Stop Time : 05/16/2011 21:30 APPLICATION SUPPORT Oxygen Flow Rate : 2L/min CRISTY MEYER RN - 05/16/2011 21:29 APPLICATION SUPPORT Source: [facility] [employer] Document Id: [id number] APPLICATION SUPPORT!6 ICATION SUPPORT Misael Mann M.D. - 05/16/2011 8:24 PM CST chest pain Patient: CANDY VALDEZ Age: 40 years Sex: Female : 1970 Author: MISAEL MANN MD Attachments: None Associated Diagnosis: Chest Pain, Atypical Basic Information Additional information:: Chief Complaint from Nursing Triage Note : Chief Complaint Description. 05/16/2011 20:14 APPLICATION SUPPORT Chief Complaint Description 40 year old female presents to the ED via private vehicle with main c/o chest pain, tightness that started at 1-2 pm, c/o nausea, feeling flushed, and clammy. History of Present Illness The patient presents with chest pain. The onset was 6 hours ago. The course/duration of symptoms is constant. Location: substernal. Radiating pain: left side of the jaw. left side of the neck. The character of symptoms is dull. The degree at onset was moderate and 3 /10. . The degree at maximum was 3 /10. . The degree at present is 3 /10. . Exacerbating factors consist of none. The relieving factor is none. Risk factors consist of smoking obesity. Prior episodes: none. Therapy todayadvil. Associatedsymptoms: nausea, diaphoresis and clammy. Patient wasn't doing anything in particular. Says it hadinsidious onset today with no exacerbating factors. She took some advil, which helped some. Nausea and diaphoresis worried her. No significant past medical history.. Review of Systems Additional review of systems information:All other systems reviewed and otherwise negative. Health Status Allergies: . Allergic Reactions (Selected) Severity not Documented Demerol HCl- No reactions were documented. Medications: . Prescriptions and Home Medications ibuprofen (Advil), PO, PRN cefuroxime (Ceftin 500 mg oral tablet), 500 mg, 1 tab(s), PO, 2xDay, 20 tab(s) fluticasone nasal (Flonase 0.05 mg/inh nasal spray), 2 spray(s), Nasal, 2xDay, 1 each codeine-guaifenesin (Cheratussin AC), 10 mL, PO, Daily, 240 mL Past Medical/ Family/ Social History Medical history: Medical history. No active or resolved past medical history items have been selected or recorded. Surgical history: Surgical history. Breast lumpectomy ([id number]) in 2005 at 35 Years. Comments: 10/06/2010 09:50 - ASLESON, SUSAN Avila LPN right breast Hysterectomy and bilateral salpingo-oophorectomy sample ([id number]) in 1994 at 24 Years. Family history: Family history. No family history items have been selected or recorded. Social history: Tobacco use: Smokes 2 pack(s) per day, for the last 4 years, Occupation: Employed, Family/social situation: . Problem list: . All Problems History of - anxiety state / [id number] / Confirmed Reflux / [id number] / Confirmed Physical Examination Vital signs: Vital Signs, 05/16/2011 20:14 APPLICATION SUPPORT Temperature Core 36.8 C Apical Heart Rate 95 /min Respiratory Rate 24 /min HI SpO2 96 % Systolic Blood Pressure 155 mmHg HI Diastolic Blood Pressure 91 mmHg >HHI Mean Arterial Pressure 112 mmHg BP Location Left upper Measurements, 05/16/2011 20:14 APPLICATION SUPPORT Estimated Weight 86.4 kg Weight Source Other: per patient Oxygen saturation Oxygen Therapy & Oxygenation Information. 05/16/2011 20:14 APPLICATION SUPPORT Oxygen Therapy Room air Oxygen Therapy Nasal Cannula Oxygen Flow Rate 2 L/min General: Alert. no acute distress. Skin: Warm. dry. pink. intact. Head: Normocephalic. atraumatic. Neck: Supple. trachea midline. no tenderness. no JVD. Eye: Pupils are equal, round and reactive to light. extraocular movements are intact. Cardiovascular: Regular rate and rhythm. No murmur. Normal peripheral perfusion. Edema: bilateral, lower extremity and 1+. Respiratory: Lungs are clear to auscultation. breath sounds are equal. Symmetrical chest wall expansion. Respirations: regular. Chest wall: No tenderness. No deformity. Gastrointestinal: Soft. Nontender. Non distended. Normal bowel sounds. Psychiatric: Cooperative. appropriate mood & affect. Medical Decision Making OrdersLaunch Orders. Laboratory: Glucose Level (Order Processing): Stat, 05/16/2011 20:26 APPLICATION SUPPORT, Once, Blood CK Total (Order Processing): Stat, 05/16/2011 20:26 APPLICATION SUPPORT, Once, Blood CPK-mb (Order Processing): Stat, 05/16/2011 20:26 APPLICATION SUPPORT, Once, Blood CBC (includes Auto Differential) (Order Processing): Stat, 05/16/2011 20:26 APPLICATION SUPPORT, Once, Blood Basic Metabolic Panel (Order Processing): Stat, 05/16/2011 20:26 APPLICATION SUPPORT, Once, Blood Troponin T (Order Processing): Stat, 05/16/2011 20:25 APPLICATION SUPPORT, Once, Blood Patient Care: ED Chest Pain (Order Processing) Cardiac Monitoring (Order Processing): 05/16/2011 20:25 APPLICATION SUPPORT, Once Pulse Oximetry-ED (Order Processing): 05/16/2011 20:25 APPLICATION SUPPORT EKG (Rad) (Order Processing): 05/16/2011 20:25 APPLICATION SUPPORT, Once Pharmacy: aspirin (Order Processing): 324 mg, PO, Once Radiology: XR Chest 2 Views (Order Processing): 05/16/2011 20:25 APPLICATION SUPPORT, Chest pain, Stat, Patient Bed, Once ED: Oxygen - ER (Order Processing): 05/16/2011 20:25 APPLICATION SUPPORT, Once, Stat, PRN to keep oxygen saturation above 95%., 24 Electrocardiogram:Time 05/16/2011 20:31:00, rate 85, normal sinus rhythm, No ST- T changes, no ectopy, normal NE & QRS intervals. Impression and Plan Chest Pain, Atypical (Discharge, Emergency medicine, Medical) Discharge plan Condition: Improved. Dispositioned: Time 05/16/2011 21:32:00, To home. Patient was given the following educational materials: CHEST PAIN, Uncertain Cause, CHEST PAIN, Uncertain Cause, CHEST PAIN, Uncertain Cause. Follow up with: Return to Emergency Department Within As Needed If symptoms worsen; [facility] Within 1 - 2 weeks. Counseled: Patient, Regarding treatment plan, Patient indicated understanding of instructions. Notes: Atypical chest pain and nausea, possibly related to GI illness coming on. Patient felt betterwith reassurance and a combination of GI cocktail and zofran ODT. All labs, xrays, EKG normal. Patient to return with persistence or worsening of symptoms, or other concerns.. Electronically Signed By: MISAEL MANN MD On: 05/16/2011 09:41 PM Modified by and Electronically Signed by: MISAEL MANN MD On: 05/16/2011 09:41 PM Source: [facility] [employer] Document Id: [id number]} ICATION SUPPORT Cristy Draper R.N. - 05/16/2011 8:10 PM CST ED Treatments and Procedures ED Treatments and Procedures Entered On: 05/16/2011 20:24 APPLICATION SUPPORT Performed On: 05/16/2011 20:10 APPLICATION SUPPORT by CRISTY MEYER RN Cardiac Monitoring Monitoring Lead : II Monitoring Lead Supervisor [place] : Initiated CRISTY MEYER RN - 05/16/2011 20:24 APPLICATION SUPPORT Source: [facility] [employer] Document Id: [id number] APPLICATION SUPPORT!4 ICATION SUPPORT documented in this encounter Miscellaneous Notes Miscellaneous - Cristy Draper R.N. - 05/16/2011 9:39 PM CST Discharge Vital Signs Form Discharge Vital Signs Form Entered On: 05/16/2011 21:40 APPLICATION SUPPORT Performed On: 05/16/2011 21:39 APPLICATION SUPPORT by CRISTY MEYER RN Vital Signs Temperature Core : 37.2C(Converted to: 99.0DegF) Apical Heart Rate : 82/min Respiratory Rate : 18/min Systolic Blood Pressure : 131mmHg Diastolic Blood Pressure : 91mmHg (>HHI) NIBP Mean : 104mmHg BP Location : Left upper extremity SpO2 : 96% Oxygen Therapy : Room air CRISTY MEYER RN - 05/16/2011 21:39 APPLICATION SUPPORT Source: [facility] [employer] Document Id: [id number] APPLICATION SUPPORT!11 ICATION SUPPORT Martin - Cristy Draper R.N. - 05/16/2011 9:38 PM CST Valuables/Belongings Valuables/Belongings Entered On: 05/16/2011 21:39 APPLICATION SUPPORT Performed On: 05/16/2011 21:38 APPLICATION SUPPORT by CRISTY MEYER RN Valuables/Belongings Valuables/Belongings Grid Valuables with Patient Clothes, Patient Valuables : Jacket, Pants, Shirt, Shoes Jewelry : Necklace, Wedding band CRISTY MEYER RN - 05/16/2011 21:38 APPLICATION SUPPORT Home Medication Disposition : None brought in with patient CRISTY MEYER RN - 05/16/2011 21:38 APPLICATION SUPPORT Source: [facility] [employer] Document Id: [id number] APPLICATION SUPPORT!7 ICATION SUPPORT Martin - Cristy Draper R.N. - 05/16/2011 8:07 PM CST Facility Charge Ticket Facility Charge Ticket Entered On: 05/16/2011 21:38 APPLICATION SUPPORT Performed On: 05/16/2011 20:07 APPLICATION SUPPORT by CRISTY MEYER RN Facility Charge TVL Level for Facility Charge Ticket : Level 4 [facility] Total Points with Diagnosis Control : 11 [facility] Visit Level : 25286 Level 4 GUERDA BURGESS - 05/23/2011 9:40 APPLICATION SUPPORT Mode of Arrival ED : Private vehicle [facility] Mode of Arrival Interpreted : Standard [facility] Process Management : None [facility] Order Management : EKG, RT, Ancillary Services, Xray - plain films, Lab tests 30 Minutes Critical Care : No [facility] Nursing Assessment : Triage and 3-5 nursing assessments [facility] Disposition : Discharge Treatments Prior to Arrival : Other: ADVIL 1830 CRISTY MEYER RN - 05/16/2011 21:38 APPLICATION SUPPORT Chief Complaint 8.50.02 Reason For Visit Category : Cardiorespiratory ED Chief Complaint Cardiorespiratory 8.5 : Chest pain TVL Calc : 20 TVL for Facility Charge Ticket Dx : Level 5 CRISTY MEYER RN - 05/16/2011 21:38 APPLICATION SUPPORT Source: [facility] [employer]ART Document Id: [id number] APPLICATION SUPPORT!5 ICATION SUPPORT documented in this encounter Plan of Treatment Not on filedocumented as of this encounter Procedures Procedure Name Priority Date/Time Associated Diagnosis Comme nts CREATINE KINASE Routine 05/16/2011 8:41 PM Result s for this (CK) MB ISOENZYME, APPLICATION SUPPORT procedure are in S the results section. AUTOMATED Routine 05/16/2011 8:41 PM Results f or this DIFFERENTIAL, B APPLICATION SUPPORT procedure ar e in the results section. CBC WITH Routine 05/16/2011 8:41 PM Results f or this DIFFERENTIAL, B APPLICATION SUPPORT procedure ar e in the results section. TROPONIN T, 5TH Routine 05/16/2011 8:41 PM Result s for this GEN, P APPLICATION SUPPORT procedure are i n the results section. CREATINE KINASE Routine 05/16/2011 8:41 PM Result s for this (CK), S APPLICATION SUPPORT procedure are i n the results section. BASIC METABOLIC Routine 05/16/2011 8:41 PM Result s for this PANEL, S/P APPLICATION SUPPORT procedure are i n the results section. documented in this encounter Results Automated Differential (05/16/2011 8:41 PM APPLICATION SUPPORT) athologist Signature Neutro % 63.4 42.0 - POWERCHART 77.0 Lymphocytes % 27.1 23.0 - POWERCHART 44.0 HX [place] % 7.5 2.0 - 11.0 POWERCHART HX Eos % 1.6 1.0 - 5.0 POWERCHART HX Baso % 0.4 0.0 - 1.0 POWERCHART Absolute 6.38 1.70 - POWERCHART Neutrophils 7.00 109L Lymphocytes 2.73 0.90 - POWERCHART 2.90 X109L Monocytes 0.76 0.20 - POWERCHART 0.80 X109L Eosinophils 0.16 0.04 - POWERCHART 0.40 X109L Absolute 0.04 0.02 - POWERCHART Basophil 0.10 X109L Specimen Anatomical Collection Method Collection Time Receive d Time (Source) Location / / Volume Laterality Blood 05/16/2011 8:41 PM 201 2 8:41 APPLICATION SUPPORT PM APPLICATION SUPPORT Misael Mann M.D. LAB BLOOD ADD-ON Performing Organization Address City/State/ZIP Code Phon e Number POWERCHART (ABNORMAL) CBC with Differential (05/16/2011 8:41 PM APPLICATION SUPPORT) Patholo gist Method Time Signature Leukocytes 10.1 4.8 - 10.8 POWERCHART X109L Erythrocytes 3.91 (L) 4.20 - POWERCHART 5.40 X109L Hemoglobin 12.6 12.0 - POWERCHART 15.5 GDL Hematocrit 37.1 37.0 - POWERCHART 47.0 MCV 95 81 - 99 FL POWERCHART HX RDW 12.4 11.5 - POWERCHART 14.5 Platelet Count 266 150 - 450 POWERCHART X109L HXDifferential? Auto POWERCHART Specimen (Source) Anatomical Collection Method Collection Time Re ceived Time Location / / Volume Laterality Blood 05/16/2011 8:41 PM APPLICATION SUPPORT Misael Mann M.D. LAB BLOOD ADD-ON Performing Organization Address City/[facility]/ZIP Code Phon e Number POWERCHART CK (Creatine Kinase) (05/16/2011 8:41 PM APPLICATION SUPPORT) P athologist Signature Creatine Kinase 65 21 - 232 UL POWERCHART (CK), S Specimen (Source) Anatomical Collection Method Collection Time Re ceived Time Location / / Volume Laterality Blood 05/16/2011 8:41 PM APPLICATION SUPPORT Misael Mann M.D. LAB BLOOD ADD-ON Performing Organization Address City/[facility]/ZIP Code Phon e Number POWERCHART Creatine Kinase (CK) MB Isoenzyme (05/16/2011 8:41 PM APPLICATION SUPPORT) P athologist Signature Creatine 1.4 0.1 - 6.2 POWERCHART Kinase(CK) MB NGML Isoenzyme, S Specimen (Source) Anatomical Collection Method Collection Time Re ceived Time Location / / Volume Laterality Blood 05/16/2011 8:41 PM APPLICATION SUPPORT Misael Mann M.D. LAB BLOOD ADD-ON Performing Organization Address City/State/ZIP Code Phon e Number POWERCHART (ABNORMAL) BMP (Basic Metabolic Panel) (05/16/2011 8:41 PM APPLICATION SUPPORT) Patholo gist Method Time Signature Sodium, S 134.6 (L) 135.0 - POWERCHART 145.0 MML Potassium, S 3.7 3.6 - 4.8 POWERCHART MML Chloride, S 101 100 - 108 POWERCHART MML CO2 Total 24.3 23.0 - POWERCHART 29.0 MMOLL BUN (Blood Urea 16 7 - 18 POWERCHART Nitrogen), S MGDL Creatinine 0.74 0.60 - POWERCHART 1.30 MGDL Calcium, Total, 9.3 8.5 - 10.1 POWERCHART S MGDL BUN/Creatinine 21.0 (H) 10.0 - POWERCHART Ratio 20.0 Anion Gap 9 (L) 10 - 20 POWERCHART MMOLL HXeGFR (MDRD) >60 (H) <=61 POWERCHART [id number] Comment: A GFR of <60 mL/min is indicative of chr onic kidney disease. (MDRD calculation valid on patients 18 - 70 years.) eGFR Black/ >60 MLMIN PO WERCHART Glucose 94 70 - 139 MGDL POWERCHART Specimen (Source) Anatomical Collection Method Collection Time Re ceived Time Location / / Volume Laterality Blood 05/16/2011 8:41 PM APPLICATION SUPPORT Misael Mann M.D. LAB BLOOD ADD-ON Performing Organization Address City/State/ZIP Code Phon e Number POWERCHART Troponin T (05/16/2011 8:41 PM APPLICATION SUPPORT) P athologist Signature Troponin T, S <0.01 0.00 - 0.10 POWERCHART NGML Comment: Below measuring range Specimen (Source) Anatomical Collection Method Collection Time Re ceived Time Location / / Volume Laterality Blood 05/16/2011 8:41 PM APPLICATION SUPPORT Misael Mann M.D. LAB BLOOD ADD-ON Performing Organization Address City/State/ZIP Code Phon e Number POWERCHART documented in this encounter Visit Diagnoses Not on filedocumented in this encounter
--- OUTSIDE RECORDS SUMMARY | 2022-01-29 10:55 | XMS_ITS | Encounter Summary ---
:1970 Author Organization [facility] Address [address] [place] [address] Care Team Providers Name Role Phone Unavailable Primary Care Provider Unavailable Encounter Details Date Type Department Care Team Description 02/03/2008 Hospital Encounter HX [facility] Neville Sarabia, INPT/OBSRV M.D. [address] [phone] (Wo rk) Social History Tobacco Use Types Packs/Day Years Used Date Smoking Tobacco: Never Assessed Sex Assigned at Date Recorded Not on file documented as of this encounter Plan of Treatment Not on filedocumented as of this encounter Visit Diagnoses Not on filedocumented in this encounter
--- OUTSIDE RECORDS SUMMARY | 2022-01-29 10:55 | XMS_ITS | Encounter Summary ---
:1970 Author Organization [facility] Address [address] [place] [address] Care Team Providers Name Role Phone Unavailable Primary Care Provider Unavailable Encounter Details Date Type Department Care Team Description 02/07/2012 Hospital Encounter [facility]X [facility] ME Jabari Benton M.D. [address] [place] [phone] (Wo rk) Social History Tobacco Use Types Packs/Day Years Used Date Smoking Tobacco: Never Assessed Sex Assigned at Date Recorded Not on file documented as of this encounter Last Filed Vital Signs Vital Sign Reading Time Taken Comments Blood Pressure 114/74 02/07/2012 8:59 AM CDT Pulse 78 02/07/2012 8:59 AM CDT Temperature - - Respiratory Rate 20 02/07/2012 8:59 AM CDT Oxygen Saturation - - Inhaled Oxygen Concentration - - Weight 96.2 kg (212 lb 1.3 oz) 02/07/2012 8:59 AM CDT Height - - Body Mass Index 38.54 08/09/2011 7:28 AM CDT documented in this encounter Medications at Time of Discharge Medication Sig Dispensed Refills Start Date End Date IBUPROFEN ORAL Take by mouth as needed. 0 011 documented as of this encounter H&P Notes Jhon Benton M.D. - 02/07/2012 8:53 AM CDT [id number] IMPRESSION/REPORT/PLAN Knee effusion with knee pain, etiology unclear. If it were to reaccumulate which she was warned could be a subsequent event or if her pain continues then an orthopedic evaluation would be conducted. She tolerated the procedure well and understood the risk of infection. Would watch for the same. Otherwise, ibuprofen and Luis Carlos wrap suggested. CHIEF COMPLAINT/REASON FOR VISIT Left knee pain. HISTORY OF PRESENT ILLNESS The patient complaints of left knee pain that has been constant now for a few days. It is swollen and she can't recall a specific major event that was responsible for its injury. 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 This is interfering with her activities while working causing her a lotof pain. No history of knee injuries. PAST MEDICAL/SURGICAL HISTORY Chronic obesity. VITAL SIGNS TEMPERATURE: 36.6 degreesC PULSE: 78 beats per minute RESPIRATIONS: 20 respirations per minute BLOOD PRESSURE: 114/74 PHYSICAL EXAM GENERAL: She is appearing to be in mild distress. ABDOMEN: Obese. Soft. SKIN: Intact. EXTREMITIES: Left knee is not reddened but there is a definite effusion evident and there is an elevation of her kneecap and a definite degree of fluid underneath this with an effusion evident. PROCEDURE: With her consent and signed permission, a therapeutic aspiration/tap of her intraarticular space of her knee was arranged for and this was done with a 16 gauge needle, a 60 cubic centimeterssyringe, and topical lidocaine and she was removed to the procedure room where she was recumbent. The area was prepped in a sterile fashion with Betadine and draped and from that point a medial approach to her joint space was conducted successfully with entry into this and removal of approximately 22 cubic centimeters of clear joint fluid. This was discarded. She had immediate relief of her symptoms with an increased flexibility of her knee. Jhon Benton M.D./aysha Electronically Signed By: JHON BENTON MD On: 02/12/2012 12:48 PM Source: [facility] MHSDOLBEYNONRADHOMEROS Document Id: [id number] documented in this encounter Miscellaneous Notes Miscellaneous - Jhon Benton M.D. - 02/08/2012 12:50 AM CDT Ambulatory Patient Summary [address] [address] Visit Information Name: CANDY CORADO Current Date: 02/08/2012 00:50:38 Physicians Attending Provider: JHON BENTON MD Primary Care Provider: WILLEM SAEED RN, TELEPHONE ASSEMBLER Your Medications Here is a list of your medications. It is important to take your medications as directed. Use a pillbox or chart to help remind you to take your medications. Please let your doctor or nurse know if you have problems taking your medications. Medication/Strength Dose Route Frequency Indications/Special Instructions/Comments hydrocodone-acetaminophen (hydrocodone-acetaminophen 5 mg-500 mg oral tablet) 1 tab(s) Oral every 4 hours as needed for Pain No more than 4,000mg acetaminophen/24hrs ibuprofen (Advil) Oral as needed Attention: If [...] No Appointments found Your Goals/Additional instructions: Source: [facility] POWERCHART Document Id: [id number] Miscellaneous - Jhon Benton M.D. - 02/08/2012 12:50 AM CDT Ambulatory Depart Summary [address] [address] Visit Information Name: CANDY CORADO Visit Date: 02/08/2012 00:50:38 Attending Provider: JHON BENTON MD Primary Care Provider: WILLEM SAEED RN, TELEPHONE ASSEMBLER CANDY CORADO has been given the following list of medications: Your Medications It is important to take your medications as directed. Use a pill box or chart to help remind you to take your medications. Please let your doctor or nurse know if you have problems taking your medications. Medication/Strength Dose Route Frequency Indications/Special Instructions/Comments hydrocodone-acetaminophen (hydrocodone-acetaminophen 5 mg-500 mg oral tablet) 1 tab(s) Oral every 4 hours as needed for Pain No more than 4,000mg acetaminophen/24hrs ibuprofen (Advil) Oral as needed Attention: If you have any medications at home that are not on this list, DO NOT take them until youcontact your provider for clarification. Additional Information: Yes - . Source: [employer] Document Id: [id number] Martin - Jhon Benton M.D. - 02/07/2012 10:43 AM CDT School or Work Excuse School or Work Excuse Entered On: 02/07/2012 10:44 CDT Performed On: 02/07/2012 10:43 CDT by JHON BENTON MD School or Work Excuse Date Patient Seen : 02/07/2012 CDT Date of Return to School/Work Without Restrictions : 02/07/2012 CDT Comment : Due to injury no work until 02/12/2012. JHON BENTON MD - 02/07/2012 10:43 CDT Source: [employer] Document Id: [id number] Martin - Johnnie Sher, L.P.N. - 02/07/2012 8:59 AM CDT Adult Photo Checker And Assembler Intake/History Adult Photo Checker And Assembler Intake/History Entered On: 02/07/2012 9:05 CDT Performed On: 02/07/2012 8:59 CDT by JOHNNIE SHER PARENT TRAINER Intake Chief Complaint : Hurt left knee last Sunday. Pain progressing the past few days. Taking Ibuprophen for pain. Temperature Core : 36.6C(Converted to: 97.9DegF) Peripheral Pulse Rate : 78/min Respiratory Rate : 20/min Systolic Blood Pressure : 114mmHg Diastolic Blood Pressure : 74mmHg NIBP Mean : 87mmHg BP Location : Right upper extremity Blood Pressure Cuff Size : Regular SpO2 : 97% Oxygen Therapy : Room air Actual Weight : 96.2kg(Converted to: 212lb 1oz) Weight Source : Standing scale Dosing Weight Clinic : 96.20kg JOHNNIE SHER [facility] - 02/07/2012 8:59 CDT Subjective Pain Symptoms : Yes JOHNNIE SHER LPN - 02/07/2012 8:59 CDT Pain Pain Assessment Grid Pain 1 Location : Knee Laterality : Left Intensity : 8 JOHNNIE SHER LPN - 02/07/2012 8:59 CDT Dependent Habits Tobacco Use/Currently Using : Yes Exposure to Tobacco Smoke : Patient smokes Smoking Status : Current every day smoker JOHNNIE SHER LPN - 02/07/2012 8:59 CDT Tobacco Use Grid Type : Cigarettes Cigarette Use Packs/Day : 0.5 JOHNNIE SHER LPN - 02/07/2012 8:59 CDT Alcohol Use : Yes JOHNNIE SHER [facility] - 02/07/2012 8:59 CDT Caffeine Use Grid Caffeine Use : Current Type : Soft drinks Frequency : Daily JOHNNIE SHER LPN - 02/07/2012 8:59 CDT Recreational Drug Use Grid Drug Use : None JOHNNIE SHER LPN - 02/07/2012 8:59 CDT Allergy Allergies (Active) Demerol HCl Estimated Onset Date: Unspecified ; Created By: WADE DAIGLE LPN; Reaction Status: Active ; Category: Drug ; Substance: Demerol HCl ; Type: Allergy ; Updated By: WADE DAIGLE LPN;Reviewed Date: 07/26/2011 10:34 CDT [facility] Document Id: [id number] documented in this encounter Plan of Treatment Not on filedocumented as of this encounter Visit Diagnoses Not on filedocumented in this encounter
--- OUTSIDE RECORDS SUMMARY | 2022-01-29 10:55 | XMS_ITS | Encounter Summary ---
:1970 Author Organization [facility] Address [address] [place] [address] Care Team Providers Name Role Phone Unavailable Primary Care Provider Unavailable Encounter Details Date Type Department Care Team Description 11/21/2006 Hospital Encounter HX [facility] Provider, Historic al Social History Tobacco Use Types Packs/Day Years Used Date Smoking Tobacco: Never Assessed Sex Assigned at Date Recorded Not on file documented as of this encounter Plan of Treatment Not on filedocumented as of this encounter Visit Diagnoses Not on filedocumented in this encounter
--- OUTSIDE RECORDS SUMMARY | 2022-01-29 10:55 | XMS_ITS | Encounter Summary ---
:1970 Author Organization [facility] Address [address] [place] [address] Care Team Providers Name Role Phone Unavailable Primary Care Provider Unavailable Encounter Details Date Type Department Care Team Description 02/16/2008 Hospital Encounter HX [facility] INPT/OBSRV Dalton Starr M.D. [address] [place], [place] [address] (Wo rk) Social History Tobacco Use Types Packs/Day Years Used Date Smoking Tobacco: Never Assessed Sex Assigned at Date Recorded Not on file documented as of this encounter Plan of Treatment Not on filedocumented as of this encounter Visit Diagnoses Not on filedocumented in this encounter
--- OUTSIDE RECORDS SUMMARY | 2022-01-29 10:55 | XMS_ITS | Encounter Summary ---
:1970 Author Organization [facility] Address [address] [place] [address] Care Team Providers Name Role Phone Unavailable Primary Care Provider Unavailable Encounter Details Date Type Department Care Team Description 02/28/2012 Hospital Encounter HX [facility] Lars Gaines, P.A.-C. Social History Tobacco Use Types Packs/Day Years Used Date Smoking Tobacco: Never Assessed Sex Assigned at Date Recorded Not on file documented as of this encounter Medications at Time of Discharge Medication Sig Dispensed Refills Start Date End Date IBUPROFEN ORAL Take by mouth as needed. 0 011 documented as of this encounter Progress Notes Lars Gaines - 02/28/2012 8:00 AM CST [id number] CLINIC ENCOUNTER Ms. Grullon is a pleasant 41-year-old female who is here today for followup after undergoing an MRI scan of her left knee. She has had significant pain and swelling in this knee for the last month or so or perhaps even a bit longer. She is not recalling the distinct mechanism of injury and is here today for followup after undergoing MRI scan. It is significant to note that her Lyme titer came back negative and she is still having quite a bit of pain in the knee. ON EXAMINATION: She has significantly increased medial joint line tenderness on the left knee when compared contralaterally but no significant lateral joint line tenderness. A review of the MRI scan does represent a medial meniscus tear in my opinion. The radiologist interpretation was reviewed. Dr. Michaud also reviewed the images and on the coronals as well as the sagittal images I think that there is evidence of medial meniscus tearing. ASSESSMENT AND PLAN: Ms. Grullon is a 41-year-old female with significant left-sided knee pain likely secondary to meniscal tear. We talked about the pros and cons of different treatment options including more conservative management and the possibility of a cortisone injection and activity modification and more routine antiinflammatories versus surgical intervention. After a thorough discussion of the pros and cons and expected and anticipated outcomes I suggested surgical intervention. The patient was in favor of this as well so after we talked about the risks, she was set up to have a left knee arthroscopy and partial medial meniscectomy to be performed by Dr. Michaud and she will see him the day of surgery, then see us back afterwards for continued care. If she has any questions in the meantime she will let us know otherwise she will follow up as discussed above. Slightly greater than 25 minutes was spent on the patient today of which greater than half that time was spent in direct [id number] counseling and educating the patient about her condition as well as treatment options that are available to her. HOLLY Fraire/eric cc: Source: [facility] RWHXTRANSXRTFSYS Document Id: [id number] documented in this encounter Plan of Treatment Not on filedocumented as of this encounter Visit Diagnoses Not on filedocumented in this encounter
--- OUTSIDE RECORDS SUMMARY | 2022-01-29 10:55 | XMS_ITS | Encounter Summary ---
:1970 Author Organization [facility] Address [address] [place] [address] Care Team Providers Name Role Phone Unavailable Primary Care Provider Unavailable Encounter Details Date Type Department Care Team Description 07/26/2011 Hospital Encounter HX [facility] Willem Saeed, GILBERT, C.N.P., D. N.P. [address] [place] [phone] (Wo rk) Social History Tobacco Use Types Packs/Day Years Used Date Smoking Tobacco: Never Assessed Sex Assigned at Date Recorded Not on file documented as of this encounter Last Filed Vital Signs Vital Sign Reading Time Taken Comments Blood Pressure 110/76 07/26/2011 10:25 AM CDT Pulse 76 07/26/2011 10:25 AM CDT Temperature - - Respiratory Rate 18 07/26/2011 10:25 AM CDT Oxygen Saturation - - Inhaled Oxygen Concentration - - Weight 99.5 kg (219 lb 5.7 oz) 07/26/2011 10:25 AM CDT Height 163 cm (5' 4.17) 07/26/2011 10:25 AM CDT Body Mass Index 37.45 07/26/2011 10:25 AM CDT documented in this encounter Medications at Time of Discharge Medication Sig Dispensed Refills Start Date End Date IBUPROFEN ORAL Take by mouth as needed. 0 011 documented as of this encounter Progress Notes Willem Saeed APRN, C.N.P. - 07/26/2011 12:00 AM CDT [id number] CHIEF COMPLAINT/REASON FOR VISIT Preanesthetic physical. HISTORY OF PRESENT ILLNESS Preanesthetic physical. Candy is a pleasant 41-year-old female who is being seen today per the request of Dr. Moscoso for preanesthetic clearance for left cataract eye surgery to be performed on 08/09/2011 at the [facility] in [place]. She has been noting some blurry vision for quite some time. She was seen by Dr. Moscoso and noted to have cataract. PAST MEDICAL/SURGICAL HISTORY She does have a history of anxiety, reflux and nicotine dependence. She has had a hysterectomy and a breast lumpectomy in the past without any complications.. CURRENT MEDICATIONS Advil on an as-needed basis. ALLERGIES Demerol HCI. IMMUNIZATIONS Hepatitis series in 1994. Tetanus in 1994. LIVING WILL The patient does have a living will and is a full code status. SYSTEMS REVIEW Blurry vision, otherwise negative. She denies any removable teeth, sores on lips mouth. She denies any shortness of breath, chest pain, wheezing, history of DVT, no edema, no difficulties with swallowing or heartburn. No diarrhea or constipation. No urinary symptoms. She has had a hysterectomy. She denies any musculoskeletal neck, back pain or any joint pain. Denies any headaches, walking, or speech issues. Denies any changes in her hair. No sleeping issues at this time. No history of abnormal bleeding. SOCIAL HISTORY She is . She has three children and is employed. She is a current tobacco user. She occasionally drinks alcohol also. Caffeine daily. FAMILY HISTORY No family history of anesthesia complications, bleeding issues or malignant hyperthermia. VITAL SIGNS Weight is 99.5. Height is 163. BMI is 37.4. Blood pressure 112/76 with pulse of 76. Temperature 36.8. Respirations 18. Oxygen saturation is 98%. Obstructive sleep apnea risk is with a neck circumference of 38. She has no history of hypertension or obstructive sleep apnea. PHYSICAL EXAMINATION GENERAL: The patient appears nondistressed. SKIN: Warm and dry. HEENT: Pupils even, equal, and react to light. Extraocular movements are normal. Tympanic membranes are clear bilaterally. Teeth and oropharynx as well as nares are patent and intact. NECK: Without tenderness. Full range of motion. Thyroid assessed and negative. LYMPH: No cervical, supraclavicular, or axillary lymphadenopathy. Carotids with normal upstrokes. No bruits. HEART: Regular rate and rhythm. LUNGS: Clear to auscultation. ABDOMEN: Soft. No organomegaly. MUSCULOSKELETAL: Full range of motion. No weakness is noted. SKIN: No rashes. PSYCHIATRIC: She is alert and oriented x3. DIAGNOSTICS None. IMPRESSION/REPORT/PLAN Patient is medically optimal for cataract surgery to be performed by Dr. Moscoso in [place] on 08/09/11. No additional precautions or preoperative recommendations other than patient was advised for smoking cessation. Patient Education Ready to learn No apparent learning barriers were identified Learning preferences include listening Explained diagnosis and treatment plan Patient/Child/Caregiver expressed understanding of the content Willem Saeed N.P. / Electronically Signed By: WILLEM SAEED RN, KEEGAN On: 07/29/2011 01:52 PM Source: [facility] MHSDOLBEYNONRADSYS Document Id: [id number] documented in this encounter Miscellaneous Notes Miscellaneous - Willem Saeed APRN, C.N.P. - 07/26/2011 12:50 PM CDT Ambulatory Patient Summary [address] [address] Visit Information Name: CANDY GRULLON Current Date: 07/26/2011 12:50:36 Physicians Attending Provider: WILLEM SAEED RN, [employer] Primary Care Provider: CORTEZ WAITE MD Your Medications Here is a list of [...] state Active 06/30/2007 Nicotine dependence Active 1982 date of onset unknown Your Upcoming Appointments Date Time Location Reason Provider No Appointments found Your Goals/Additional instructions: Source: [facility] readeo Document Id: [id number] Miscellaneous - Willem Saeed APRN, C.N.P. - 07/26/2011 12:50 PM CDT Ambulatory Depart Summary [address] [address] Visit Information Name: CANDY GRULLON Visit Date: 07/26/2011 12:50:35 Attending Provider: WILLEM SAEED RN, [employer] Primary Care Provider: CORTEZ WAITE MD CANDY GRULLON has been given the following [...] your provider for clarification. Additional Information: Source: [facility] readeo Document Id: [id number] Miscellaneous - Jasmin Douglas L.P.N. - 07/26/2011 10:37 AM CDT Obstructive Sleep Apnea Obstructive Sleep Apnea Entered On: 07/26/2011 10:37 CDT Performed On: 07/26/2011 10:37 CDT by JASMIN DOUGLAS LPN GINGER Screening Known Obstructive Sleep Apnea : No JASMIN DOUGLAS LPN - 07/26/2011 10:37 CDT GINGER Assessment Do you have high blood pressure or have you been told to take medication for high blood pressure? : No Frequency of Snoring : Occasionally (4-8 times per year) Frequency of Gasping, Choking, Snorting : Never Neck Circumference (cm) : 38/39 Total Number of Historical Features : 0 JASMIN DOUGLAS LPN - 07/26/2011 10:37 CDT [facility] Document Id: [id number] CDT!9 Miscellaneous - Jasmin Douglas L.PClinton - 07/26/2011 10:33 AM CDT Health Assessment Health Assessment Entered On: 07/26/2011 10:33 CDT Performed On: 07/26/2011 10:33 CDT by JASMIN DOUGLAS LPN Health Assessment Complete Health Assessment Complete or Modified : Annual Health Assessment Annual Health Assessment Completed : Yes JASMIN DOUGLAS LPN - 07/26/2011 10:33 CDT Nutrition Nutrition Risk Factors by History Adult : None JASMIN DOUGLAS LPN - 07/26/2011 10:33 CDT Functional Current Daily Living Assistance : None JASMIN DOUGLAS LPN - 07/26/2011 10:33 CDT Dependent Habits Tobacco Use/Currently Using : Yes Exposure to Tobacco Smoke : Patient smokes Smoking Status : Current every day smoker JASMIN DOGULAS LPN - 07/26/2011 10:33 CDT Tobacco Use Grid Type : Cigarettes Cigarette Use Packs/Day : 0.5 JASMIN DOUGLAS LPN - 07/26/2011 10:33 CDT Caffeine Use Grid Caffeine Use : Current Type : Soft drinks Frequency : Daily JASMIN DOUGLAS LPN - 07/26/2011 10:33 CDT Recreational Drug Use Grid Drug Use : None JASMIN DOUGLAS LPN - 07/26/2011 10:33 CDT Psychosocial Domestic Abuse Concerns : None JASMIN DOUGLAS LPN - 07/26/2011 10:33 CDT Advance Directive Advanced Directives : Yes JASMIN DOUGLAS LPN - 07/26/2011 10:33 CDT Educ Needs Learning Style Preference Adult Grid Patient : Demonstration Family : None JASMIN DOUGLAS LPN - 07/26/2011 10:33 CDT Source: [facility] POWERCHART Document Id: [id number] CDT!32 Miscellaneous - Jasmin Douglas L.P.N. - 07/26/2011 10:25 AM CDT Adult Cad Application Support Specialist Intake/History Adult Cad Application Support Specialist Intake/History Entered On: 07/26/2011 10:33 CDT Performed On: 07/26/2011 10:25 CDT by JASMIN DOUGLAS LPN Intake Chief Complaint : Pre op cataract surgery Left eye Dr. Moscoso 08/09/11 here Temperature Core : 36.8C(Converted to: 98.2DegF) Peripheral Pulse Rate : 76/min Respiratory Rate : 18/min Heart Rhythm : Regular Systolic Blood Pressure : 110mmHg Diastolic Blood Pressure : 76mmHg NIBP Mean : 87mmHg BP Location : Left upper extremity Blood Pressure Cuff Size : Regular SpO2 : 98% Oxygen Therapy : Room air Height : 163cm(Converted to: 5ft 4inch(es), 64.17inch(es)) Actual Weight : 99.5kg(Converted to: 219lb 6oz) Weight Source : Standing scale Dosing Weight Clinic : 99.50kg Clinic BSA : 2.12 Body Mass Index : 37.45kg/m2 Neck Circumference : 38cm(Converted to: 15inch(es)) JASMIN DOUGLAS LPN - 07/26/2011 10:25 CDT Subjective Pain Symptoms : No JASMIN DOUGLAS LPN - 07/26/2011 10:25 CDT Dependent Habits Tobacco Use/Currently Using : Yes Tobacco Use/Advised to Quit : Yes Exposure to Tobacco Smoke : Patient smokes Smoking Status : Current every day smoker JASMIN DOUGLAS LPN - 07/26/2011 10:25 CDT Tobacco Use Grid Type : Cigarettes Cigarette Use Packs/Day : 0.5 JASMIN DOUGLAS LPN - 07/26/2011 10:25 CDT Alcohol Use : Yes JASMIN DOUGLAS LPN - 07/26/2011 10:25 CDT Caffeine Use Grid Caffeine Use : Current Type : Soft drinks Frequency : Daily JASMIN DOUGLAS LPN - 07/26/2011 10:25 CDT Recreational Drug Use Grid Drug Use : None JASMIN DOUGLAS LPN - 07/26/2011 10:25 CDT Allergy Allergies (Active) Demerol HCl Estimated Onset Date: Unspecified ; Created By: WADE DAIGLE LPN; Reaction Status: Active ; Category: Drug ; Substance: Demerol HCl ; Type: Allergy ; Updated By: WADE DAIGLE LPN;Reviewed Date: 05/31/2011 8:28 GLASS EMBOSSER [facility] Document Id: [id number] CDT!41 documented in this encounter Plan of Treatment Not on filedocumented as of this encounter Visit Diagnoses Not on filedocumented in this encounter
--- OUTSIDE RECORDS SUMMARY | 2022-01-29 10:55 | XMS_ITS | Encounter Summary ---
:1970 Author Organization [facility] Address [address] [place] [address] Care Team Providers Name Role Phone Unavailable Primary Care Provider Unavailable Encounter Details Date Type Department Care Team Description 10/06/2010 Hospital Encounter HX [facility] Jabari Benton M.D. [address] [place] [id number] (Wo rk) Social History Tobacco Use Types Packs/Day Years Used Date Smoking Tobacco: Never Assessed Sex Assigned at Date Recorded Not on file documented as of this encounter Medications at Time of Discharge Medication Sig Dispensed Refills Start Date End Date IBUPROFEN ORAL Take by mouth as needed. 0 011 documented as of this encounter Progress Notes Jhon Benton M.D. - 10/06/2010 12:00 AM CDT [id number] IMPRESSION/REPORT/PLAN Bacterial sinusitis and bronchitis. Prescribe Ceftin 500 milligrams daily, Robitussin with codeine 240 cc to take 10 cc every 4-6 hours on an as needed basis. Cautioned her regarding driving while taking this medication. Recheck if not improved. CHIEF COMPLAINT/REASON FOR VISIT Head congestion, chest congestion, coughing producing yellow-green mucus and she is very fatigued and tired. HISTORY OF PRESENT ILLNESS She has no rash. Denies fever, chills, or dyspnea on exertion. No anginal chest pain. Otherwise, her symptoms are not improving spontaneously and she does have a distant history of tobacco abuse on past medical history review. ALLERGIES Demerol. She has tolerated codeine, however. SOCIAL HISTORY She doesn't abuse substances and she has quit smoking cigarettes. VITAL SIGNS TEMPERATURE: 36.4 degreesC PULSE: 66 beats per minute RESPIRATIONS: 16 per minute BLOOD PRESSURE: 138/80 PHYSICAL EXAM LUNGS: Clarity to auscultation bilaterally. CARDIOVASCULAR: Regular rhythm and rate. ENT: Oropharynx is unremarkable, slightly tender submandibular adenopathy. Swollen nasal passages. Purulence present. Tenderness over the maxillary sinuses to point pressure. Tympanic membranes slightly retracted but not erythematous. Nasal tone to voice. SKIN: No rashes. Jhon Benton M.D. /aysha Electronically Signed By: JHON BENTON MD On: 10/06/2010 04:24 PM Source: [facility] MHSDOLBEYNONRADSYS Document Id: [id number] documented in this encounter Miscellaneous Notes Miscellaneous - Jhon Benton M.D. - 10/06/2010 10:15 AM CDT School or Work Excuse School or Work Excuse Entered On: 10/06/2010 10:16 CDT Performed On: 10/06/2010 10:15 CDT by JHON BENTON MD School or Work Excuse Date Patient Seen: 10/06/2010 CDT School or Work Restrictions: Other: no work 10/06 and 10/07 Date of Return to School/Work Without Restrictions: 10/08/2010 CDT JHON BENTON MD - 10/06/2010 10:15 CDT Source: [facility] [employer] Document Id: [id number] CDT!5 Miscellaneous - Rosemarie Mercado L.P.N. - 10/06/2010 9:50 AM CDT Adult Non Morse Intercept Technician Intake/History Adult Non Morse Intercept Technician Intake/History Entered On: 10/06/2010 9:53 CDT Performed On: 10/06/2010 9:50 CDT by ROSEMARIE MERCADO LPN Intake Chief Complaint: cough, sinus congestion, x's 3-4 weeks. Temperature Core: 36.4C(Converted to: 97.5DegF) (LOW) Peripheral Pulse Rate: 66/min Respiratory Rate: 16/min Systolic Blood Pressure: 138mmHg Diastolic Blood Pressure: 80mmHg NIBP Mean: 99mmHg BP Location: Right upper extremity SpO2: 98% Heart Rhythm: Regular Weight Source: Other: refused ROSEMARIE MERCADO LPN - 10/06/2010 9:50 CDT Subjective Pain Symptoms: No ROSEMARIE MERCADO LPN - 10/06/2010 9:50 CDT Dependent Habits Tobacco Use/Currently Using: No ROSEMARIE MERCADO LPN - 10/06/2010 9:50 CDT Caffeine Use Grid Caffeine Use: Current Type: Soft drinks Frequency: Daily ROSEMARIE MERCADO LPN - 10/06/2010 9:50 CDT Allergy Allergies (Active) Demerol HCl Estimated Onset Date: Unspecified ; Created By: WADE DAIGLE LPN; Reaction Status: Active ; Category: Drug ; Substance: Demerol HCl ; Type: Allergy ; Updated By: WADE DAIGLE LPN;Reviewed Date: 10/06/2010 9:47 CDT Source: [employer] Document Id: [id number] CDT!22 documented in this encounter Plan of Treatment Not on filedocumented as of this encounter Visit Diagnoses Not on filedocumented in this encounter
--- OUTSIDE RECORDS SUMMARY | 2022-01-29 10:55 | XMS_ITS | Encounter Summary ---
:1970 Author Organization [facility] Address [address] [place] [address] Care Team Providers Name Role Phone Unavailable Primary Care Provider Unavailable Encounter Details Date Type Department Care Team Description 02/16/2008 Hospital Encounter HX [facility] IN[facility]/OBSRV Dalton Satrr M.D. [address] [place], [place] [address] (Wo rk) Social History Tobacco Use Types Packs/Day Years Used Date Smoking Tobacco: Never Assessed Sex Assigned at Date Recorded Not on file documented as of this encounter Plan of Treatment Not on filedocumented as of this encounter Visit Diagnoses Not on filedocumented in this encounter
--- OUTSIDE RECORDS SUMMARY | 2022-01-29 10:55 | XMS_ITS | Encounter Summary ---
:1970 Author Organization [facility] Address [address] [place] [address] Care Team Providers Name Role Phone Unavailable Primary Care Provider Unavailable Encounter Details Date Type Department Care Team Description 08/15/2011 Hospital Encounter HX NO MAPPING Provider, Historical [...] of this encounter Miscellaneous Notes Miscellaneous - Ronda Freitas, CCS-P - 08/15/2011 12:00 AM CDT [id number] [facility] [address] [place] [address] [place] [address] Attn: Billing Office: Our [facility] patient, Candy Grullon, had surgery with Dr. Sloan Archer MD. In an effort to coordinate the billing for the post-operative care, our office is providing the following information: All post-op care will be provided by your physician. WE BILLED: CPT CODE(S): 71399-48-EM DATE OF SERVICE: 08/09/11 DIAGNOSIS: 366.14 POST OP CARE TURNED OVER: 08/10/11 If there are any questions or concerns, please call Ronda at [phone] in Health Information Management. Thank You Source: [facility] Document Id: [id number] Electronically signed by Maryann [facility] [employer] [id number] at 09/23/2016 8:19 PM CDT documented in this encounter Plan of Treatment Not on filedocumented as of this encounter Visit Diagnoses Not on filedocumented in this encounter
--- OUTSIDE RECORDS SUMMARY | 2022-01-29 10:55 | XMS_ITS | Encounter Summary ---
:1970 Author Organization [facility] Address [address] [place] [address] Care Team Providers Name Role Phone Unavailable Primary Care Provider Unavailable Encounter Details Date Type Department Care Team Description 09/02/2002 Hospital Encounter HX NO MAPPING Provider, Historical Social History Tobacco Use Types Packs/Day Years Used Date Smoking Tobacco: Never Assessed Sex Assigned at Date Recorded Not on file documented as of this encounter Miscellaneous Notes Miscellaneous - Conversion, Historical Provider Ser - 09/02/2002 12:00 AM CDT [id number] Addended by: ARNULFO QUINN on: 09/06/2002,1:48 PMModules accepted: Order SummaryAddended by: ARNULFO BUCKLEY on: 09/06/2002,1:42 PMModules accepted: Order SummaryAddended by: ARNULFO QUINN on: 09/06,1:39 PMModules accepted: Order Summary Source: [facility] [id number] Document Id: [id number] documented in this encounter Plan of Treatment Not on filedocumented as of this encounter Visit Diagnoses Not on filedocumented in this encounter
--- OUTSIDE RECORDS SUMMARY | 2022-01-29 10:55 | XMS_ITS | Encounter Summary ---
:1970 Author Organization [facility] Address [address] [place] [address] Care Team Providers Name Role Phone Unavailable Primary Care Provider Unavailable Encounter Details Date Type Department Care Team Description 07/12/2011 Hospital Encounter HX NO MAPPING Dudley Archer M.D. [address] [place], [place] [phone] (Wo rk) Social History Tobacco Use Types Packs/Day Years Used Date Smoking Tobacco: Never Assessed Sex Assigned at Date Recorded Not on file documented as of this encounter Medications at Time of Discharge Medication Sig Dispensed Refills Start Date End Date IBUPROFEN ORAL Take by mouth as needed. 0 011 documented as of this encounter Miscellaneous Notes Miscellaneous - Heber Archer M.D. - 07/12/2011 12:00 PM CDT [id number] CLINIC ENCOUNTER Dr. Corley's office in [place], 07/12/2011 SUBJECTIVE: This is a 41-year-old female presents for a cataract evaluation as requested by Dr. Corley. She has noticed a definite decline in the quality of vision in her left eye over the last 6 months. The right eye seems fine. She has a history of myopic astigmatism. OBJECTIVE: CONFRONTATION VISUAL COLLINS: Intact. MOTILITY: Full. PUPILS: 4/2 brisk. No RAPD. EXTERNAL: Unremarkable. SLIT LAMP EXAMINATION: Conjunctivae/sclerae quiet. Corneas clear. Chambers deep and quiet. Irises normal. Lenses - right lens shows only scant cortical changes; the left lens shows a moderately dense posterior subcapsular cataract. FUNDUS: (Dilated both eyes) Normal maculae, disks, vessels and periphery. Intraocular pressures noted above. IMPRESSION: Symptomatic posterior subcapsular cataract of the left eye. PLAN: 1. Recommend cataract surgery of the left eye. 2. The risks, benefits and alternatives to surgery were discussed including suprachoroidal hemorrhage, endophthalmitis and loss of the eye. 3. The patient will present to [place] for biometry, keratometry and preoperative teaching performed. The patient desires emmetropia with a monofocal lens. 4. She will see her primary MD in consultation regarding anesthetic risks. A letter to Dr. Corley. Saumya Linton/ghazala cc: Source: [facility] [id number] Document Id: [id number] Electronically signed by Conversion, [facility] Senior Visual Designer [id number] at 09/23/2016 12:23 PM CDT Miscellaneous - Heber Archer M.D. - 07/12/2011 12:00 PM CDT [id number] Candy Grullon is a 41 year old female who presents for cataract referral Dr. Corley. History of Present Illness: Patient states her vision has been gradually becoming more blurry, mostly left eye. Dickson Houser, COMT Distance Right Eye Left Eye Both Eyes CC 20 60 Pinhole Correction Glasses Current RX: Sphere Cylinder [facility] Add Prism Right Eye -2.25 +1.25 115 +2.50 Left Eye --2.25 +1.00 70 +2.50 Refraction sanna Corley MR Right Eye -2.25 +1.25 115 20/20+ VA Both Eyes MR Left Eye -2.00 +1.50 75 20/50+ ADD Right Eye +2.50 NA NA 20/ VA Both Eyes ADD Left Eye +2.50 NA NA 20/ 20 -apd eoms full collins full CF IOP Right Eye 12 Left Eye 11 Tonometry Tonopen Dilation Medication Tropicamide 1.0% and Phenylephrine 2.5% Optic Disc Assessment C/D Ratio Right Eye .30 C/D Ratio Left Eye .30 There is no problem list on file for this patient. PAST MEDICAL HISTORY: No past medical history on file. PAST SURGICAL HISTORY: No past surgical history on file. MEDICATIONS: No current outpatient prescriptions on file. ALLERGIES: Review of patient's allergies indicates no known allergies. History Substance Use Topics Smoking status: Current Everyday Smoker Smokeless tobacco: Never Used Alcohol Use: Not on file Pt does drive motor vehicle. No family history on file. REVIEW OF SYSTEMS: General: negative Skin: negative Eyes: as above Ears/Nose/Mouth/Throat: negative Respiratory: smoker Cardiovascular: negative Gastrointestinal: negative Genitourinary: negative Musculoskeletal: negative Neurologic: negative Psychiatric: negative Hematologic/Lymphatic/Immunologic: negative Endocrine: negative Source: [facility] [id number] Document Id: [id number] Electronically signed by Conversion, [facility] Senior Visual Designer [id number] at 09/23/2016 12:23 PM CDT documented in this encounter Plan of Treatment Not on filedocumented as of this encounter Visit Diagnoses Not on filedocumented in this encounter
--- OUTSIDE RECORDS SUMMARY | 2022-01-29 10:55 | XMS_ITS | Encounter Summary ---
:[address] [facility] Address [address] [place] [address] Care Team Providers Name Role Phone Unavailable Primary Care Provider Unavailable Encounter Details Date Type Department Care Team Description 07/27/2011 Hospital Encounter HX [facility] OPH[facility] Provider, Histor ical Social History Tobacco Use Types Packs/Day Years [...]
--- OUTSIDE RECORDS SUMMARY | 2022-01-29 10:55 | XMS_ITS | Encounter Summary ---
:1970 Author Organization [facility] Address [address] [place] [address] Care Team Providers Name Role Phone Unavailable Primary Care Provider Unavailable Encounter Details Date Type Department Care Team Description 08/09/2011 Hospital Encounter HX [facility] SURGERY Lance Alonzo M.D. [address] [place] [id number] (Wo rk) Social History Tobacco Use Types Packs/Day Years Used Date Smoking Tobacco: Never Assessed Sex Assigned at Date Recorded Not on file documented as of this encounter Last Filed Vital Signs Vital Sign Reading Time Taken Comments Blood Pressure 114/61 08/09/2011 8:50 AM CDT Pulse 68 08/09/2011 8:50 AM CDT Temperature - - Respiratory Rate 16 08/09/2011 8:50 AM CDT Oxygen Saturation - - Inhaled Oxygen Concentration - - Weight - - Height 158 cm (5' 2.21) 08/09/2011 7:28 AM CDT Body Mass Index - - documented in this encounter Medications at Time of Discharge Medication Sig Dispensed Refills Start Date End Date IBUPROFEN ORAL Take by mouth as needed. 0 011 documented as of this encounter Procedure Notes Rosalina Jeffries, R.N. - 08/09/2011 7:28 AM CDT Preprocedure Checklist Preprocedure Checklist Entered On: 08/09/2011 7:38 CDT Performed On: 08/09/2011 7:28 CDT by ROSALINA JEFFRIES RN Checklist Last Fluid Intake : 08/08/2011 23:00 CDT Last Food Intake : 08/08/2011 21:00 CDT Last Void : 08/09/2011 7:00 CDT Status : Patient denies ROSALINA JEFFRIES RN - 08/09/2011 7:28 CDT Surgery Prep Grid Contacts/Glasses Removed : Yes Dentures Removed : NA Hairpins/Hairpiecies Removed : NA Hearing Aid Removed : NA Home Prep Complete : NA Jewelry/Piercing Removed : NA Makeup/Nail Amharic Removed : NA Oral Hygiene : NA Preop Scrub AM of Surgery : NA Preop Scrub Night Prior to Surgery : NA Prosthesis Removed : NA Surgical Prep Verified : Yes Tampon Removed : NA Wearing Patient Gown : Yes ROSALINA JEFFRIES RN - 08/09/2011 7:28 CDT Patient Rights Grid Blood Consent Signed : EFRAIN Surgical/Procedure Consent Signed : Yes ROSALINA JEFFRIES RN - 08/09/2011 7:28 CDT Family Location : friend awaiting phone call ROSALINA JEFFRIES RN - 08/09/2011 7:28 CDT Checklist II Patient Safety Grid Allergy Band on and Verified : Yes Anesthesia Consult : Yes Band on for Limb Alert : NA Blood Band on and Verified : NA Current ECG in Medical Record : NA Current H&P in Medical Record : Yes Implants Verified : NA Medication Reconciliation on Chart : Yes Pacemaker/AICD Verified : NA ID Band on and Verified : Yes Preop Medications Sent With Patient : NA Relevant Images in Medical Record : NA Review of Labs : NA Procedure/Site Verified by Patient/Family : Yes Procedure/Site Verified by RN : Yes Procedure/Site Verified by Physician : Yes Type & Screen/Type & Cross Completed : ROSALINA PHELPS RN - 08/09/2011 7:28 CDT RN Who Verified Site : ROSALINA JEFFRIES RN Physician Who Verified Site : KATALINA ALONZO MD, GWYNNE A RN - 08/09/2011 7:28 CDT GINGER Screening Known Obstructive Sleep Apnea : No Uses Home CPAP/BiPAP : No Risk for Sleep Apnea : No ROSALINA JEFFRIES RN - 08/09/2011 7:28 CDT GINGER Assessment Do you have high blood pressure or have you been told to take medication for high blood pressure? : No Frequency of Snoring : Occasionally (4-8 times per year) Frequency of Gasping, Choking, Snorting : Never Neck Circumference (cm) : 42/43 Total Sleep Apnea Clinical Score : 5 Total Number of Historical Features : 0 ILSAROSALINA WEISS RN - 08/09/2011 7:28 CDT Valuables/Belongings Valuables/Belongings Grid Valuables at Bedside Clothes, Patient Valuables : Ailyn JEFFRIESROSALINA RN - 08/09/2011 7:28 CDT Room Orientation/Facility Policy Reviewed : Yes Home Medication Disposition : None brought in with patient NESHA ROSALINA A RN - 08/09/2011 7:28 CDT Education Preprocedure Education Grid Procedure Type : left cataract extraction Education Topics : Anesthesia/Sedation, Plan of care Individuals Taught : Patient Barriers to Learning : None evident Teaching Method : Explanation Teaching Evaluation : Verbalizes understanding ILSAROSALINA WEISS RN - 08/09/2011 7:28 CDT Preop Holding Mode of Arrival : Ambulatory Preoperative Orders Complete : Yes ILSAROSALINA IGLESIAS RN - 08/09/2011 7:28 CDT Advance Directive Advanced Directives : Yes ILSAROSALINA WEISS RN - 08/09/2011 7:28 CDT Vital Signs Temperature Core : 36.4C(Converted to: 97.5DegF) (LOW) Peripheral Pulse Rate : 71/min Respiratory Rate : 16/min Systolic Blood Pressure : 132mmHg Diastolic Blood Pressure : 80mmHg NIBP Mean : 97mmHg SpO2 : 97% Oxygen Saturation Monitoring Frequency : Intermittent Oxygen Therapy : Room air Height : 158cm(Converted to: 5ft 2inch(es)) Height Source : Estimated Estimated Weight : 91kg Estimated Weight Conversion to Pounds : 200.20lb BÁRBARAKEY JARVISYNMICHAELLE Davis RN - 08/09/2011 7:28 CDT Allergy Allergies (Active) Demerol HCl Estimated Onset Date: Unspecified ; Created By: WADE DAIGLE LPN; Reaction Status: Active ; Category: Drug ; Substance: Demerol HCl ; Type: Allergy ; Updated By: WADE DAIGLE LPN;Reviewed Date: 07/26/2011 10:34 CDT Preprocedural Pause Correct Patient Identity : Patient verbalizes self, Patient wristband ID, Patient verbalizes Correct Procedure Site and Side : left cataract extraction Correct Procedure Site/Side Verified By : Patient/responsible republican, Nurse, MD Site Marking : Yes Pre-Procedure Pause Verbal Confirm. of : Procedure, Site, Side, Patient Position, Patient ID ROSALINA JEFFRIES RN - 08/09/2011 7:28 CDT Source: [employer] Document Id: [id number] documented in this encounter Nursing Notes Rosalina Jeffries R.N. - 08/09/2011 7:20 AM CDT Day Surgery Admission History/Asmt Adult Day Surgery Admission History/Asmt Adult Entered On: 08/09/2011 7:27 CDT Performed On: 08/09/2011 7:20 CDT by ROSALINA JEFFRIES RN General Info Preferred Name : Candy Mode of Arrival : Ambulatory Accompanied By : Alone Chief Complaint : here for left cataract extraction Preferred Communication Mode : Verbal Information Given By : Patient Languages : Polish Status : Patient denies ROSALINA JEFFRIES RN - 08/09/2011 7:20 CDT Allergy Allergies (Active) Demerol HCl Estimated Onset Date: Unspecified ; Created By: WADE DAIGLE LPN; Reaction Status: Active ; Category: Drug ; Substance: Demerol HCl ; Type: Allergy ; Updated By: WADE DAIGLE LPN;Reviewed Date: 07/26/2011 10:34 CDT Anesth/Transfusion Anesthesia/Transfusions : Prior anesthesia ROSALINA JEFFRIES RN - 08/09/2011 7:20 CDT ID Screen Drug Resistant Organism : No ROSALINA JEFFRIES RN - 08/09/2011 7:20 CDT Nutrition Nutrition Risk Factors by History Adult : None Home Diet : Regular, [place], Diabetic Feeding Ability : Complete independence Eating Difficulties : None Appetite : Excellent ROSALINA JEFFRIES RN - 08/09/2011 7:20 CDT Home Environment Current Daily Living Assistance : None Living Situation : Home independently Home Equipment : None Sensory Deficits : None Mobility Assistance Prior to Admission : Independent Current Home Treatments : None Professional Skilled Services : None Special Services and Community Resources : None ROSALINA JEFFRIES RN - 08/09/2011 7:20 CDT Dependent Habits Tobacco Use/Currently Using : Yes Tobacco Use/Advised to Quit : Yes Exposure to Tobacco Smoke : Patient smokes Smoking Status : Current some day smoker ROSALINA JEFFRIES RN - 08/09/2011 7:20 CDT Tobacco Use Grid Type : Cigarettes Cigarette Use Packs/Day : 0.5 Comments (Comment: trying to quit over past several months [ROSALINA JEFFRIES RN - 08/09/2011 7:20 CDT] ) ROSALINA JEFFRIES RN - 08/09/2011 7:20 CDT Caffeine Use Grid Caffeine Use : Current Type : Soft drinks Frequency : Daily ROSALINA JEFFRIES RN - 08/09/2011 7:20 CDT Recreational Drug Use Grid Drug Use : None ROSALINA JEFFRIES RN - 08/09/2011 7:20 CDT Psychosocial Adult Domestic Abuse Concerns : None ROSALINA JEFFRIES RN - 08/09/2011 7:20 CDT Advance Directive Advanced Directives : Yes ROSALINA JEFFRIES RN - 08/09/2011 7:20 CDT Educ Needs Patient/Family Education Needs : Plan of care ROSALINA JEFFRIES RN - 08/09/2011 7:20 CDT Learning Style Preference Adult Grid Patient : Verbal explanation Family : None ROSALINA JEFFRIES RN - 08/09/2011 7:20 CDT Education Preprocedure Education Grid Procedure Type : left cataract extraction Education Topics : Anesthesia/Sedation, Plan of care Individuals Taught : Patient Barriers to Learning : None evident Teaching Method : Explanation Teaching Evaluation : Verbalizes understanding ROSALINA JEFFRIES RN - 08/09/2011 7:20 CDT ROSALINA JEFFRIES RN - 08/09/2011 7:20 CDT Outpatient Assessment Procedural Respiratory : Respirations unlabored, Respiratory pattern regular, Breath sounds clear all lobes Procedural Cardiovascular : Heart rhythm regular, Skin color normal for ethnicity, Skin dry and warm Procedural Neurological : Alert, Oriented x 3, Gait steady Procedural Gastrointestinal : Abdomen non-tender and soft, Bowel sounds all quadrants Procedural Genitourinary : Voiding, no difficulties Procedural Integumentary : Skin integrity intact Procedural Musculoskeletal : Activity tolerance without distress ROSALINA JEFFRIES RN - 08/09/2011 7:20 CDT Psycho/Emotional Pain Symptoms : No Affect/Behavior : Calm, Cooperative, Appropriate ROSALINA JEFFRIES - 08/09/2011 7:20 CDT Peripheral IV Peripheral IV Assess/Intervention Grid Peripheral IV #1 IV Activity : Start Number of Attempts : 1 Date of Insertion : 08/09/2011 CDT IV Site : Hand Laterality : Left Catheter Size : 20 Catheter Type : Protective Site Condition : No complications Drainage Description : None Infiltration Score : 0 Phlebitis Score : 0 Comments (Comment: saline lock [ROSALINA JEFFRIES - 08/09/2011 7:20 CDT] ) ROSALINA JEFFRIES - 08/09/2011 7:20 CDT Regino Sensory Perception Regino : No impairment Moisture Regino : Rarely moist Activity Regino : Walks frequently Mobility Regino : No limitations Nutrition Regino : Excellent Friction and Shear Regino : Potential problem Regino Score : 22 ROSALINA JEFFRIES RN - 08/09/2011 7:20 CDT Hendrich II Fall Risk Confusion/Disorientation Hendrich : [...] of balance with steps Fall Risk Score Hendrich II : 0 ROSALINA JEFFRIES RN - 08/09/2011 7:20 CDT DC Needs Anticipated Discharge Date : 08/09/2011 CDT Discharge To, Anticipated : Home independently Home Treatments, Anticipated : None Home Equipment, Anticipated : None Professional Skilled Services, Anticipated : None Special Serv & Comm Res, Anticipated : None Needs Assistance with Transportation : No Needs Assistance at Home Upon Discharge : No ROSALINA JEFFRIES RN - 08/09/2011 7:20 CDT FLACC Face FLACC : No particular expression or smile Legs FLACC : Normal position or relaxed Activity FLACC : Lying quietly, normal position, moves easily Cry FLACC : No cry, awake or asleep Consolabillity FLACC : Content, relaxed FLACC Pain Scale Score : 0 ROSALINA JEFFRIES RN - 08/09/2011 7:20 CDT Urinary Catheter Urinary Catheter Activity Type : Other: none ROSALINA JEFFRIES RN - 08/09/2011 7:20 CDT Integumentary Integumentary Patient Stated Symptoms : None Skin Turgor : Elastic Skin Integrity : Intact Mucous Membrane Color : [place] Mucous Membrane Description : Moist Skin Color : Normal for ethnicity Skin Description : Dry Skin Temperature : Warm ROSALINA JEFFRIES RN - 08/09/2011 7:20 CDT Source: [employer] Document Id: [id number] documented in this encounter OR Notes Op Note - Katalina Alonzo M.D. - 08/09/2011 12:00 AM CDT [id number] Preoperative Diagnosis: Visually disabling posterior capsular cataract of the left eye. Postoperative Diagnosis: Visually disabling posterior capsular cataract of the left eye. Procedure Performed: Phacoemulsification with lens implantation, left eye. Surgeon: Katalina Alonzo M.D. Anesthesia: MAC. Complications: None. Indications: Mrs. Grullon presented with complaints of poor vision in her left eye. On examination in the clinic she was noted to have posterior capsular cataract. The risks, benefits and alternatives to surgery were discussed including suprachoroidal hemorrhage and ophthalmitis and loss of the eye. Patient desired an emmetropic refractive end point for monovision and a Consent was obtained. Description of Procedure: Patient is brought to the operating room where the left eye was sterilely prepped and draped. A lid speculum was placed in the eye. A 10 O'clock paracentesis tract was made and Viscoat elastic was injected. A 2.85-mm., clear corneal incision was made with the Karen at the temporal limbus. A Cystotome needle and Utrata forceps created a capsulorrhexis. Hydrodissection and hydrodelineation with 1% non preserved Lidocaine was performed. The Phaco tip was then introduced into the anterior chamber where the nucleus was grooved centrally and deeply rotated 90-degrees and cracked in half. Each nuclear half was disassembled using the Phaco chopper and handpiece. Each nuclear fragment was captured, phacoemulsified and removed. The epinuclear bowl followed and the posterior capsule was polished. Viscoat elastic filled the capsule and anterior chamber. A lens Model [id number] with a power of 19.5 Diopters was inserted into the capsule without difficulty. Residual Viscoat elastic was removed from the capsule and anterior chamber. The stroma of the wound and paracentesis tract were hydrated with Balance Salt solution. The wounds were checked for leaks and none were found. The patient tolerated the procedure well and left the operating suite in good condition. The clear corneal incision was made in alignment with the patient's corneal stigmatism by keratometry. Katalina Alonzo M.D. /katt Electronically Signed By: KATALINA ALONZO MD On: 09/06/2011 10:13 AM Source: [facility] [id number] Document Id: [id number] documented in this encounter Miscellaneous Notes Miscellaneous - Ilsa-Rosalina Corea RCarineNCarine - 08/09/2011 8:50 AM CDT Adult Postprocedure Assessment Adult Postprocedure Assessment Entered On: 08/09/2011 9:19 CDT Performed On: 08/09/2011 8:50 CDT by ROSALINA JEFFRIES RN Vital Signs Temperature Core : 36C(Converted to: 96.8DegF) (LOW) Peripheral Pulse Rate : 68/min Respiratory Rate : 16/min Systolic Blood Pressure : 114mmHg Diastolic Blood Pressure : 61mmHg NIBP Mean : 79mmHg SpO2 : 96% Oxygen Saturation Monitoring Frequency : Continuous Oxygen Therapy : Room air ROSALINA JEFFRIES 08/09/2011 9:14 CDT General Level of Consciousness : Alert Orientation : Oriented x 3 Skin Color : Normal for ethnicity Skin Description : Dry Skin Temperature : Warm Pain Symptoms : No ROSALINA JEFFRIES 08/09/2011 9:14 CDT FLACC Face FLACC : No particular expression or smile Legs FLACC : Normal position or relaxed Activity FLACC : Lying quietly, normal position, moves easily Cry FLACC : No cry, awake or asleep Consolabillity FLACC : Content, relaxed FLACC Pain Scale Score : 0 ROSALINA JEFFRIES 08/09/2011 9:14 CDT Cardiovascular Heart Rhythm : Regular Nail Bed Color : [place] Edema : None Capillary Refill : Less than 2 seconds ROSALINA JEFFRIES 08/09/2011 9:14 CDT Pulses Grid Radial Pulse, Left : 2+ Normal Radial Pulse, Right : 2+ Normal ROSALINA JEFFRIES 08/09/2011 9:14 CDT Cardiac Rhythm Techs Ventricular Rate : 68bpm Ventricular Rhythm : Regular ROSALINA JEFFRIES 08/09/2011 9:14 CDT Respiratory Anesthesia Type : MAC Airway Type : None Respiratory Pattern : Regular Respirations : Unlabored All Lobes Breath Sounds : Clear ROSALINA JEFFRIES 08/09/2011 9:14 CDT GI/ Nausea Symptoms : No ROSALINA JEFFRIES 08/09/2011 9:14 CDT Urinary Catheter Urinary Catheter Activity Type : Other: none ROSALINA JEFFRIES 08/09/2011 9:14 CDT Integumentary Integumentary Patient Stated Symptoms : None Skin Turgor : Elastic Skin Integrity : Intact Mucous Membrane Color : [place] Mucous Membrane Description : Moist Skin Color : Normal for ethnicity Skin Description : Dry Skin Temperature : Warm BÁRBARAMATHEUS ROSALINA Susan 08/09/2011 9:14 CDT Peripheral IV Peripheral IV Assess/Intervention Grid Peripheral IV #1 IV Activity : Discontinue Number of Attempts : 1 Date of Insertion : 08/09/2011 CDT IV Site : Hand Laterality : Left Catheter Size : 20 Catheter Type : Protective Infiltration Score : 0 Phlebitis Score : 0 Comments (Comment: IV discontinued with plastic cath intact upon removal [ILSA-ANDREAMATHEUS ROSALINA A 08/09/2011 9:14 CDT] ) ROSALINA JEFFRIES 08/09/2011 9:14 CDT Neurologic Swallowing Difficulty/Aspiration Risk : None Extremity Movement : Equal Facial Symmetry : Symmetric Characteristics of Speech : Clear ROSALINA JEFFRIES 08/09/2011 9:14 CDT Upper Extremity Nail Bed Color Hands Grid Left Hand : [place] Right Hand : [place]hton BÁRBARAMATHEUS ROSALINA A 08/09/2011 9:14 CDT Capillary Refill Hand Grid Left Hand : < 2 seconds Right Hand : < 2 seconds ROSALINA JEFFRIES 08/09/2011 9:14 CDT Upper Extremity Color Grid Left : [place] Right : Cashton BÁRBARAMATHEUS ROSALINA A 08/09/2011 9:14 CDT Upper Extremity Temperature Grid Left : Warm Right : Warm ILSAABHISHEK ROSALINA A 08/09/2011 9:14 CDT NV Upper Extremity Pulses Grid Radial Pulse, Left : 2+ Normal Radial Pulse, Right : 2+ Normal ILSAKELSIE ROSALINA A 08/09/2011 9:14 CDT PARSAP Activity Status : Moves 4 extremities voluntarily or on command Dressing : None Respiratory Component : Able to deep breathe and cough freely Pain : Pain free Circulation Component : BP 20% of preanesthetic level Ambulation : Able to stand up and walk straight Consciousness : Fully awake Fasting and Feeding : Able to drink fluids Oxygen Saturation - Sedation : Can maintain > 92% on room air Urine Output, PARSAP : Unable to void but comfortable PARSAP Score : 19 ROSALINA JEFFRIES RN - 08/09/2011 9:14 CDT Johnson Johnson Agitation Sedation Scale (RASS) : Alert and calm RASS Score : 0 ROSALINA JEFFRIES RN - 08/09/2011 9:14 CDT Regino Sensory Perception Regino : No impairment Moisture Regino : Rarely moist Activity Regino : Walks frequently Mobility Regino : No limitations Nutrition Regino : Excellent ROSALINA JEFFRIES RN - 08/09/2011 9:14 CDT Hendrich II Fall Risk Confusion/Disorientation Hendrich : [...] of balance with steps Fall Risk Score Hendrich II : 0 ROSALINA JEFFRIES RN - 08/09/2011 9:14 CDT Education General Patient Education Powergrid Topics : Discharge instructions/Medication list Individuals Taught : Patient Barriers to Learning : None evident Teaching Method : Explanation, Printed materials Teaching Evaluation : Verbalizes understanding Education Referral Made To : Other: ROSALINA Murray RN - 08/09/2011 9:14 CDT [facility] Document Id: [id number] Miscellaneous - Rosalina Jeffries RClinton - 08/09/2011 8:30 AM CDT Adult Postprocedure Assessment Adult Postprocedure Assessment Entered On: 08/09/2011 9:11 CDT Performed On: 08/09/2011 8:30 CDT by ROSALINA JEFFRIES RN Vital Signs Temperature Core : 36C(Converted to: 96.8DegF) (LOW) Peripheral Pulse Rate : 64/min Respiratory Rate : 16/min Systolic Blood Pressure : 119mmHg Diastolic Blood Pressure : 70mmHg NIBP Mean : 86mmHg SpO2 : 95% Oxygen Saturation Monitoring Frequency : Continuous Oxygen Therapy : Room air ROSALINA JEFFRIES 08/09/2011 9:03 CDT General Level of Consciousness : Alert Orientation : Oriented x 3 Skin Color : Normal for ethnicity Skin Description : Dry Skin Temperature : Warm Pain Symptoms : No ROSALINA JEFFRIES 08/09/2011 9:03 CDT FLACC Face FLACC : No particular expression or smile Legs FLACC : Normal position or relaxed Activity FLACC : Lying quietly, normal position, moves easily Cry FLACC : No cry, awake or asleep Consolabillity FLACC : Content, relaxed FLACC Pain Scale Score : 0 ROSALINA JEFFRIES 08/09/2011 9:03 CDT Cardiovascular Heart Rhythm : Regular Nail Bed Color : [place] Edema : None Capillary Refill : Less than 2 seconds ROSALINA JEFFRIES 08/09/2011 9:03 CDT Pulses Grid Radial Pulse, Left : 2+ Normal Radial Pulse, Right : 2+ Normal ROSALINA JEFFRIES 08/09/2011 9:03 CDT Cardiac Rhythm Techs Ventricular Rate : 64bpm Ventricular Rhythm : Regular ILSA-ROSALINA COREA 08/09/2011 9:03 CDT Respiratory Anesthesia Type : MAC Airway Type : None Respiratory Pattern : Regular Respirations : Unlabored All Lobes Breath Sounds : Clear ROSALINA JEFFRIES 08/09/2011 9:03 CDT GI/ Nausea Symptoms : No KRISH JEFFRIESNE Susan 08/09/2011 9:03 CDT Urinary Catheter Urinary Catheter Activity Type : Other: none ROSALINA JEFFRIES 08/09/2011 9:03 CDT Integumentary Integumentary Patient Stated Symptoms : None Skin Turgor : Elastic Skin Integrity : Intact Mucous Membrane Color : [place] Mucous Membrane Description : Moist Skin Color : Normal for ethnicity Skin Description : Dry Skin Temperature : Warm ROSALINA JEFFRIES 08/09/2011 9:03 CDT Peripheral IV Peripheral IV Assess/Intervention Grid Peripheral IV #1 IV Activity : Assessment Number of Attempts : 1 Date of Insertion : 08/09/2011 CDT IV Site : Hand Laterality : Left Catheter Size : 20 Catheter Type : Protective Infiltration Score : 0 Phlebitis Score : 0 ROSALINA JEFFRIES Susan 08/09/2011 9:03 CDT I&O Other Intake : 20mL (Comment: IV NS flush in OR [ILSA-ROSALINA COREA Susan 08/09/2011 9:03 CDT] ) ILSA-KRISH COREANE Susan 08/09/2011 9:03 CDT Neurologic Swallowing Difficulty/Aspiration Risk : None Extremity Movement : Equal Facial Symmetry : Symmetric Characteristics of Speech : Clear NESHA ROSALINA Susan 08/09/2011 9:03 CDT Upper Extremity Nail Bed Color Hands Grid Left Hand : [place] Right Hand : [place] ROSALINA JEFFRIES 08/09/2011 9:03 CDT Capillary Refill Hand Grid Left Hand : < 2 seconds Right Hand : < 2 seconds KRISH JEFFRIESNE Susan 08/09/2011 9:03 CDT Upper Extremity Color Grid Left : [place] Right : [place] ROSALINA JEFFRIES 08/09/2011 9:03 CDT Upper Extremity Temperature Grid Left : Warm Right : Warm ROSALINA JEFFRIES 08/09/2011 9:03 CDT NV Upper Extremity Pulses Grid Radial Pulse, Left : 2+ Normal Radial Pulse, Right : 2+ Normal ILSA-KRISH COREANE Susan 08/09/2011 9:03 CDT Modified Temitope Activity : Moves 4 extremities voluntarily or on command Respiratory : Able to deep breathe and cough freely Circulation : BP +/- 20% of preprocedural level or not unusually high or low Consciousness : Fully awake O2 Saturation : O2 SAT at preprocedural level Temitope l Score : 10 ILSA-ANDREAMATHEUS ROSALINA Susan 08/09/2011 9:03 CDT Johnson Johnson Agitation Sedation Scale (RASS) : Alert and calm RASS Score : 0 ROSALINA JEFFRIES RN - 08/09/2011 9:03 CDT Regino Sensory Perception Regino : No impairment Moisture Regino : Rarely moist Activity Regino : Walks frequently Mobility Regino : No limitations Nutrition Regino : Excellent Friction and Shear Regino : Potential problem Regino Score : 22 ROSALINA JEFFRIES RN - 08/09/2011 9:03 CDT Hendrich II Fall Risk Confusion/Disorientation Hendrich : [...] of balance with steps Fall Risk Score Hendrich II : 0 ROSALINA JEFFRIES RN - 08/09/2011 9:03 CDT Source: [employer] Document Id: [id number] documented in this encounter Plan of Treatment Not on filedocumented as of this encounter Visit Diagnoses Not on filedocumented in this encounter
--- OUTSIDE RECORDS SUMMARY | 2022-01-29 10:55 | XMS_ITS | Encounter Summary ---
:1970 Author Organization [facility] Address [address] [place] [address] Care Team Providers Name Role Phone Unavailable Primary Care Provider Unavailable Encounter Details Date Type Department Care Team Description 11/22/2007 [facility] Provider, Historic al Social History Tobacco Use Types Packs/Day Years Used Date Smoking Tobacco: Never Assessed Sex Assigned at Date Recorded Not on file documented as of this encounter Plan of Treatment Not on filedocumented as of this encounter Visit Diagnoses Not on filedocumented in this encounter
--- OUTSIDE RECORDS SUMMARY | 2022-01-29 10:55 | XMS_ITS | Encounter Summary ---
:1970 Author Organization [facility] Address [address] [place] [address] Care Team Providers Name Role Phone Unavailable Primary Care Provider Unavailable Encounter Details Date Type Department Care Team Description 02/22/2010 Hospital Encounter [facility]X [facility] INPT/OBSRV Juan Manuel Gaines, P.A.-C. Social History Tobacco Use Types Packs/Day Years Used Date Smoking Tobacco: Never Assessed Sex Assigned at Date Recorded Not on file documented as of this encounter Plan of Treatment Not on filedocumented as of this encounter Visit Diagnoses Not on filedocumented in this encounter
--- OUTSIDE RECORDS SUMMARY | 2022-01-29 10:55 | XMS_ITS | Encounter Summary ---
:1970 Author Organization [facility] Address [address] [place] [address] Care Team Providers Name Role Phone Unavailable Primary Care Provider Unavailable Encounter Details Date Type Department Care Team Description 02/21/2012 Hospital Encounter HX [facility] Lars Gaines, P.A.-C. Social History Tobacco Use Types Packs/Day Years Used Date Smoking Tobacco: Never Assessed Sex Assigned at Date Recorded Not on file documented as of this encounter Medications at Time of Discharge Medication Sig Dispensed Refills Start Date End Date IBUPROFEN ORAL Take by mouth as needed. 0 011 documented as of this encounter Progress Notes Lars Gaines - 02/21/2012 3:20 PM CDT [id number] CLINIC ENCOUNTER SUBJECTIVE: Miss Hicks is a pleasant 41-year-old female who is here today for evaluation of left-sided knee pain and swelling. This has been ongoing for the last month or so. She does not recall any distinct mechanism of injury but does have a fairly active lifestyle. She has had pain and swelling in this knee which is fairly consistent. She denies any constitutional symptoms. She has not had problems with the knee in the past. She has no previous surgical history in this knee. She is not sure of any specific exacerbating or alleviating factors and has tried some simple analgesics but unfortunately, she is still having quite a bit of discomfort. EXAMINATION: On examination, there is in fact a grade 1 plus effusion about the knee. There is not much patellofemoral apprehension. Her range of motion is limited with regard to flexion secondary to the swelling, but she can still get to about over 90 degrees if we take it slowly. She can achieve near full extension. She is grossly stable to valgus and varus stress. Ton maneuver appears to be negative. Plain radiographs were not felt indicated at this time based on her age and story. ASSESSMENT AND PLAN: Miss Hicks is a pleasant 41-year-old female who has left-sided knee pain and swelling that has been ongoing for the last month. It is really quite painful for her. For this reason, I think it would be side to obtain a Lyme titer as well as an MRI scan of the knee to help look for internal derangement. I think with the sizeable effusion, it would be smart to help further the diagnosis prior to considering alternative treatment options. She will follow up once the MRI scan is obtained and we will discuss the results of her Lyme titer at that visit as well, and she will see us in the near future for all of this. If she has questions, she was encouraged to call. Otherwise she will follow up as discussed above or sooner if necessary. Greater than 15 minutes was spent with the patient today, of which greater than half that time was spent in direct [id number] counseling and educating the patient about her condition as well as treatment options that are available to her. HOLLY Fraire/george cc: Source[facility] [id number] Document Id: [id number] documented in this encounter Plan of Treatment Not on filedocumented as of this encounter Procedures Procedure Name Priority Date/Time Associated Comments Diagnosis HX SN - SPEC - Routine 02/23/2012 10:35 Results f or this DESCRIPTION AM CDT procedure are i n the results section. documented in this encounter Results HX SN - SPEC - DESCRIPTION (02/23/2012 10:35 AM CDT) P athologist Signature HXSPECIMAN Serum [facility] Specimen (Source) Anatomical Collection Method Collection Time Re ceived Time Location / / Volume Laterality 02/23/2012 10:35 AM CDT Historical Provider LAB HISTORICAL ORDERS Performing Organization Address City/State/ZIP Code Phon e Number [facility] documented in this encounter Visit Diagnoses Not on filedocumented in this encounter
--- OUTSIDE RECORDS SUMMARY | 2022-01-29 10:55 | XMS_ITS | Encounter Summary ---
:1970 Author Organization [facility] Address [address] [place] [address] Care Team Providers Name Role Phone Unavailable Primary Care Provider Unavailable Encounter Details Date Type Department Care Team Description 02/22/2010 Hospital Encounter HX NO MAPPING Lars Gaines, P.A.- C. Social History Tobacco Use Types Packs/Day Years Used Date Smoking Tobacco: Never Assessed Sex Assigned at Date Recorded Not on file documented as of this encounter Plan of Treatment Not on filedocumented as of this encounter Visit Diagnoses Not on filedocumented in this encounter
--- OUTSIDE RECORDS SUMMARY | 2022-01-29 10:55 | XMS_ITS | Encounter Summary ---
:1970 Author Organization [facility] Address [address] [place] [address] Care Team Providers Name Role Phone Unavailable Primary Care Provider Unavailable Encounter Details Date Type Department Care Team Description 07/05/2009 Hospital Encounter HX NO MAPPING Brie Smith M.D. [address] [place] [phone] (Wo rk) Social History Tobacco Use Types Packs/Day Years Used Date Smoking Tobacco: Never Assessed Sex Assigned at Date Recorded Not on file documented as of this encounter Plan of Treatment Not on filedocumented as of this encounter Visit Diagnoses Not on filedocumented in this encounter
--- OUTSIDE RECORDS SUMMARY | 2022-01-29 10:55 | XMS_ITS | Encounter Summary ---
:1970 Author Organization [facility] Address [address] [place] [address] Care Team Providers Name Role Phone Unavailable Primary Care Provider Unavailable Encounter Details Date Type Department Care Team Description 09/02/2002 Hospital Encounter HX NO MAPPING Tony Polanco M.D. [address] [place], [place] [phone] (Wo rk) Social History Tobacco Use Types Packs/Day Years Used Date Smoking Tobacco: Never Assessed Sex Assigned at Date Recorded Not on file documented as of this encounter Plan of Treatment Not on filedocumented as of this encounter Visit Diagnoses Not on filedocumented in this encounter
--- OUTSIDE RECORDS SUMMARY | 2022-01-29 10:55 | XMS_ITS | Encounter Summary ---
:1970 Author Organization [facility] Address [address] [place] [address] Care Team Providers Name Role Phone Unavailable Primary Care Provider Unavailable Encounter Details Date Type Department Care Team Description 02/15/2010 Hospital Encounter [facility] INPT/OBSRV Bethanie Dwyer, [address] [place] [phone] (Wo rk) Social History Tobacco Use Types Packs/Day Years Used Date Smoking Tobacco: Never Assessed Sex Assigned at Date Recorded Not on file documented as of this encounter Plan of Treatment Not on filedocumented as of this encounter Visit Diagnoses Not on filedocumented in this encounter
--- OUTSIDE RECORDS SUMMARY | 2022-01-29 10:55 | XMS_ITS | Encounter Summary ---
:1970 Author Organization [facility] Address [address] [place] [address] Care Team Providers Name Role Phone Unavailable Primary Care Provider Unavailable Encounter Details Date Type Department Care Team Description 09/03/2002 Hospital Encounter HX NO MAPPING Provider, Historical Social History Tobacco Use Types Packs/Day Years Used Date Smoking Tobacco: Never Assessed Sex Assigned at Date Recorded Not on file documented as of this encounter Miscellaneous Notes Miscellaneous - Conversion, Historical Provider Ser - 09/03/2002 12:00 AM CDT [id number] Abstracted by JA Calculation Clerk on [address] [place] [id number] . H. Blee, M.D.Room No. [id number], THERESA : 68EMERGENCY ROOM NOTECHIEF COMPLAI NT: Left-sided abdominal pain. HPI: Candy is a very pleasant 32-year-old female that was evalua sophy in the emergency room last night for left upper quadrant abdominal pain and left-sided abdominal pain that was acute onset in nature. She pinpointed it to 1:30 in the afternoon yesterday. No prior attacks. She was seen last night with a CT scan of the abdomen and pelvis performed. There was que stion of some jejunal thickening at the time of the CT but on the patient's exam her exam showed tend erness in the rectus sheath which was exacerbated by activation of the rectus sheath muscle. It did not seem to be an intraabdominal component. At that time she had no fever. She had a normal white count. There was no free on multiple x-rays taken or on the CT scan. She was evaluated by Dr. Polanco and by Dr. Plascencia and I was also consulted last night and agreed that this most likely represented a r ectus sheath situation. She was therefore given 30 milligrams of intravenous Toradol and was instruc sophy that it was safe to go home but to return if things worsened. She also had a followup appointmen t scheduled for 8 o'clock this morning. She states that after being given the Toradol she felt signi ficantly better. She was able to sleep without problems. She has not eaten since 2 o'clock this mor guillermo. She currently is hungry. She has no problems with nausea or vomiting. She has had normal fla tus. The pain is significantly less. She does get a little pain if she activates this rectus sheath also. EXAMINATION: Today in the ER her temperature was 98.2, pulse 16, blood pressure 96/60, rep eat white blood cell count was 8,700, hemoglobin 13.5. She moves about the room without problems. In the supine position her abdomen was palpated. I asked her to show me where she has some of the dull ness, it is a similar position as last night. Again her abdomen is very soft at this point and minim ally tender. If she tightens the rectus sheath by raising her legs and a palpate this one similar ar an and this left-sided rectus sheath she is tender but less so than last night. The activation of th e rectus sheath muscle does not hide the pain. She has normal bowel sounds at this time. No masses. I told her at this time that we are most likely dealing with a rectus sheath problem, some short o f strain or twist. At this time there is no acute surgical intervention. She is feeling much better and I think she can continue about her day-to-day activities. She and I went over the signs and sym ptoms of conditions that would be concerning in the abdomen including fever, recurrence of the pain, nausea or vomiting. At this time she agrees to come back if she has any further problems. If this be comes chronic in nature we talked about blocking the area and working up her back for a disc injury. At this time all questions she had were asked and answered. She will followup on a p.r.n. basis. Jhon Bourne M.D./[facility]: 09/03/02T: 09/03/02 Source: [facility] [id number] Document Id: [id number] documented in this encounter Plan of Treatment Not on filedocumented as of this encounter Visit Diagnoses Not on filedocumented in this encounter
--- OUTSIDE RECORDS SUMMARY | 2022-01-29 10:55 | XMS_ITS | Encounter Summary ---
:1970 Author Organization [facility] Address [address] [place] [address] Care Team Providers Name Role Phone Unavailable Primary Care Provider Unavailable Encounter Details Date Type Department Care Team Description 07/14/2011 Hospital Encounter HX [facility] Margarita Amos M.D. [address] [place], [place] [phone] (Wo rk) Social History [...] Miscellaneous - Conversion, Historical Provider Ser - 07/14/2011 12:00 AM CDT [id number] July 14, 2011 Jimi Corley O.D. [facility] [address] [facility] [address] RE: Candy Grullon [address] [place] [address] [facility] [phone] EMR#: [id number] : 1970 Dear Jimi: Thanks for having me see Candy Grullon regarding a cataract. As you recall, she is a [id number] who has noticed a definite decline in the quality of vision in her left eye over the last sixmonths. On examination in the clinic, her corrected visual acuity, left eye, measured 20/60. The slit lamp examination revealed a clear cornea with a deep and quiet chamber. The lens showed +2-3 posterior subcapsular cataract. The fundus exam was unremarkable, and the pressure was within normal limits. Ms. 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 I would recommend that she undergo cataract surgery in the future. Surgery will be set up in [place] next month. She does desire a monofocal lens with emmetropia for the left eye. The patient and her family would appreciate if you could provide postoperative management. Thanks again for the consultation. Sincerely, Heber Archer M.D. Department of Ophthalmology [facility] Source: [facility] [id number] Document Id: [id number] documented in this encounter Plan of Treatment Not on filedocumented as of this encounter Visit Diagnoses Not on filedocumented in this encounter
--- OUTSIDE RECORDS SUMMARY | 2022-01-29 10:55 | XMS_ITS | Encounter Summary ---
:1970 Author Organization [facility] Address [address] [place] [address] Care Team Providers Name Role Phone Unavailable Primary Care Provider Unavailable Encounter Details Date Type Department Care Team Description 02/22/2010 Hospital Encounter HX [facility] Neville Sarabia, INPT/OBSRV M.D. [address] [phone] (Wo rk) Social History Tobacco Use Types Packs/Day Years Used Date Smoking Tobacco: Never Assessed Sex Assigned at Date Recorded Not on file documented as of this encounter Plan of Treatment Not on filedocumented as of this encounter Visit Diagnoses Not on filedocumented in this encounter
--- OUTSIDE RECORDS SUMMARY | 2022-01-29 10:55 | XMS_ITS | Encounter Summary ---
:1970 Author Organization [facility] Address [address] [place] [address] Care Team Providers Name Role Phone Unavailable Primary Care Provider Unavailable Encounter Details Date Type Department Care Team Description 03/10/2008 Hospital Encounter HX [facility] Neville Sarabia, INPT/OBSRV M.D. [address] [phone] (Wo rk) Social History Tobacco Use Types Packs/Day Years Used Date Smoking Tobacco: Never Assessed Sex Assigned at Date Recorded Not on file documented as of this encounter Plan of Treatment Not on filedocumented as of this encounter Visit Diagnoses Not on filedocumented in this encounter
--- OUTSIDE RECORDS SUMMARY | 2022-01-29 10:55 | XMS_ITS | Encounter Summary ---
:1970 Author Organization [facility] Address [address] [place] [address] Care Team Providers Name Role Phone Unavailable Primary Care Provider Unavailable Encounter Details Date Type Department Care Team Description 05/31/2011 Hospital Encounter HX [facility] ME Denise Johnson P.A.-C. [address] [place] [address] (Wo rk) Social History Tobacco Use Types Packs/Day Years Used Date Smoking Tobacco: Never Assessed Sex Assigned at Date Recorded Not on file documented as of this encounter Last Filed Vital Signs Vital Sign Reading Time Taken Comments Blood Pressure 120/70 05/31/2011 8:25 AM NET DEVELOPER SOFTWARE ENGINEER C Pulse - - Temperature - - Respiratory Rate 20 05/31/2011 8:25 AM NET DEVELOPER SOFTWARE ENGINEER C Oxygen Saturation - - Inhaled Oxygen Concentration - - Weight - - Height - - Body Mass Index - - documented in this encounter Medications at Time of Discharge Medication Sig Dispensed Refills Start Date End Date IBUPROFEN ORAL Take by mouth as needed. 0 011 documented as of this encounter Progress Notes Chandni Johnson - 05/31/2011 12:00 AM CST [id number] CHIEF COMPLAINT/REASON FOR VISIT This is a 40-year-old female seen today because she has not been feeling well for the past five days. She states that she has had a lot of nasal congestion. She feels a lot of pressure in her face, it just feels like it is getting worse and worse. She has had a little bit of a sore throat but denies any ear pain. She said her chest just feels very heavy, she has been coughing. She described it as a productive cough. She feels a lot of postnasal drainage. She denies any shortness of breath but states that she has been feeling a little bit wheezy, she denies being achy, she states that she had a temperature of 101-degrees on Sunday, about three days ago. She has been using some NyQuil [id number] and Ibuprofen. CURRENT MEDICATIONS Just Advil [id number]. ALLERGIES 1) DEMEROL. PAST MEDICAL HISTORY/SURGICAL HISTORY Reviewed in the EMR. SOCIAL HISTORY She is a smoker. VITAL SIGNS Temperature: 36.6-degrees Centigrade. Heart rate: 80. Respirations: 20. Blood pressure: 120/70. O2 SATs: 90% on room air. PHYSICAL EXAMINATION IN GENERAL: She is alert, interactive and cooperative. Appears to be well-nourished, Well hydrated, in no acute distress. HEENT: Head is normocephalic, atraumatic. TMs are clear with normal landmarks normal light reflex. Canals are clear. Sclerae and conjunctive are clear. Nares are quite congested. Maxillary sinuses are tender to palpation. Oral mucosa is pink and moist. Posterior pharynx is not erythematous. Tonsils are not enlarged. No exudate. NECK: Is supple, she is has some mild cervical lymphadenopathy. LUNGS: Sound clear to auscultation bilaterally. No wheezes. HEART: Regular rate and rhythm. IMPRESSION/REPORT/PLAN IMPRESSION 1) Viral URI versus sinusitis. PLAN I discussed with her that most often, bacterial sinusitis takes over after a week or more. However, given the fact that she was running a fever and her symptoms seem to be getting worse rather than better I did send over a prescription for Amoxicillin, 875 milligrams tabs, 1-tablet by mouth, twice a day, (b.i.d.) for 10 days. I recommended that she maybe try some Mucinex and Saline rinses for the next couple days and see if she can take care of it on her own. If this does not seem to be taking care of it, she can go ahead and fill the prescription for Amoxicillin. She should return if she is not improving, otherwise call or return for any other questions or concerns. PATIENT EDU #1 Patient Education Ready to learn No apparent learning barriers were identified Learning preferences include listening Explained diagnosis and treatment plan Patient/Child/Caregiver expressed understanding of the content. Chandni Johnson P.A.-C /katt Electronically Signed By: CHANDNI JOHNSON On: 06/06/2011 09:49 AM Source: [facility] [id number] Document Id: [id number] DEVELOPER SOFTWARE ENGINEER C documented in this encounter Miscellaneous Notes Miscellaneous - Chandni Johnson - 05/31/2011 9:21 AM CST Ambulatory Patient Summary [address] [address] Visit Information Name: CANDY VALDEZ Current Date: 05/31/2011 09:21:08 Primary Care Provider: CORTEZ WAITE MD Your [...] two times a day for 10 Days ibuprofen (Advil) Oral as needed Your Allergies & Intolerances Substance Reaction Symptoms Category Comments Demerol HCl Drug Your Problem List Problem Status Onset Comments Reflux Active 07/05/2005 History of - anxiety state Active 06/30/2007 Nicotine dependence Active date of onset unknown Your Recommendations We want to make sure you get the tests, immunizations, and guidance you need to stay healthy. Here is a customized list of recommendations, based on information we have in your medical record. Your doctor may have additional recommendations for you, based on your personal medical history and risk factors. You can help us by calling us to make an appointment when you are due for your tests. Additional information regarding recommendations: Test/Treatment Last Done Next Due Additional Information Health Assessment every 1 year 05/31/2011 05/30/2012 Screening Mammogram every 1 year Women 40-75 11/21/2010 11/22/2011 X-rays of breast to check for breast cancer. Lipid Panel every 5 years Age 20-75 05/31/2011 Checks blood for good (HDL) and bad (LDL) cholesterol. Know your numbers, they are one indicator of your risk for heart attack and stroke. Vaccine: Tetanus every 10 years 08/23/1994 08/20/2004 Immunization to help prevent you from getting the serious disease Tetanus (Lockjaw). Your Upcoming Appointments Date Time Location Reason Provider No Appointments found Your Goals/Additional instructions: Source: [facility] POWERCHART Document Id: [id number] DEVELOPER SOFTWARE ENGINEER C Martin - Chandni Johnson - 05/31/2011 9:21 AM CST Ambulatory Depart Summary [address] [address] Visit Information Name: CANDY VALDEZ Current Date: 05/31/2011 09:21:08 Attending Provider: CHANDNI JOHNSON Primary Care Provider: CORTEZ WAITE MD DOSECANDY has been given the following list of [...] two times a day for 10 Days ibuprofen (Advil) Oral as needed Additional Information: Source: [facility] POWERCHART Document Id: [id number] DEVELOPER SOFTWARE ENGINEER C Martin - Chandni Johnson - 05/31/2011 8:49 AM CST School or Work Excuse School or Work Excuse Entered On: 05/31/2011 8:49 NET DEVELOPER SOFTWARE ENGINEER C Performed On: 05/31/2011 8:49 NET DEVELOPER SOFTWARE ENGINEER C by CHANDNI JOHNSON School or Work Excuse Date Patient Seen : 05/31/2011 NET DEVELOPER SOFTWARE ENGINEER C Comment : Candy was seen in the clinic today. CHANDNI JOHNSON - 05/31/2011 8:49 NET DEVELOPER SOFTWARE ENGINEER C Source: [facility] [employer] Document Id: [id number] NET DEVELOPER SOFTWARE ENGINEER C!4 DEVELOPER SOFTWARE ENGINEER C Miscellaneous - Conversion, Historical Provider Ser - 05/31/2011 8:29 AM NET DEVELOPER SOFTWARE ENGINEER C Health Assessment Health Assessment Entered On: 05/31/2011 8:30 NET DEVELOPER SOFTWARE ENGINEER C Performed On: 05/31/2011 8:29 NET DEVELOPER SOFTWARE ENGINEER C by YURI STEWART LPN Health Assessment Complete Health Assessment Complete or Modified : Annual Health Assessment Annual Health Assessment Completed : Yes YURI STEWART LPN - 05/31/2011 8:29 NET DEVELOPER SOFTWARE ENGINEER C Nutrition Nutrition Risk Factors by History Adult : None YURI STEWART LPN - 05/31/2011 8:29 NET DEVELOPER SOFTWARE ENGINEER C Functional Current Daily Living Assistance : None YURI STEWART LPN - 05/31/2011 8:29 NET DEVELOPER SOFTWARE ENGINEER C Dependent Habits Tobacco Use/Currently Using : Yes Smoking Status : Current every day smoker YURI STEWART LPN - 05/31/2011 8:29 NET DEVELOPER SOFTWARE ENGINEER C Tobacco Use Grid Type : Cigarettes Cigarette Use Packs/Day : 0.5 YURI STEWART LPN - 05/31/2011 8:29 NET DEVELOPER SOFTWARE ENGINEER C Caffeine Use Grid Caffeine Use : Current Type : Soft drinks Frequency : Daily YURI STEWART LPN - 05/31/2011 8:29 NET DEVELOPER SOFTWARE ENGINEER C Recreational Drug Use Grid Drug Use : None YURI STEWART LPN - 05/31/2011 8:29 NET DEVELOPER SOFTWARE ENGINEER C Psychosocial Domestic Abuse Concerns : None YURI STEWART LPN - 05/31/2011 8:29 NET DEVELOPER SOFTWARE ENGINEER C Advance Directive Advanced Directives : Yes YURI STEWART LPN - 05/31/2011 8:29 NET DEVELOPER SOFTWARE ENGINEER C Educ Needs Learning Style Preference Adult Grid Patient : Printed materials Family : Printed materials YURI STEWART LPN - 05/31/2011 8:29 NET DEVELOPER SOFTWARE ENGINEER C Source: [facility] [employer] Document Id: [id number] NET DEVELOPER SOFTWARE ENGINEER C!31 Miscellaneous - Conversion, Historical Provider Ser - 05/31/2011 8:25 AM NET DEVELOPER SOFTWARE ENGINEER C Adult Solar Design Engineer Intake/History Adult Solar Design Engineer Intake/History Entered On: 05/31/2011 8:28 NET DEVELOPER SOFTWARE ENGINEER C Performed On: 05/31/2011 8:25 NET DEVELOPER SOFTWARE ENGINEER C by YURI STEWART LPN Intake Chief Complaint : cols sx xince Fri, cough that is productive, sinus congestion, runny nose, drainage refused weight Temperature Core : 36.6C(Converted to: 97.9DegF) Apical Heart Rate : 80/min Respiratory Rate : 20/min Systolic Blood Pressure : 120mmHg Diastolic Blood Pressure : 70mmHg NIBP Mean : 87mmHg SpO2 : 98% YURI STEWART LPN - 05/31/2011 8:25 NET DEVELOPER SOFTWARE ENGINEER C Subjective Pain Symptoms : No YURI STEWART LPN - 05/31/2011 8:25 NET DEVELOPER SOFTWARE ENGINEER C Dependent Habits Tobacco Use/Currently Using : Yes Smoking Status : Current every day smoker YURI STEWART LPN - 05/31/2011 8:25 NET DEVELOPER SOFTWARE ENGINEER C Tobacco Use Grid Type : Cigarettes Cigarette Use Packs/Day : 0.5 YURI STEWART LPN - 05/31/2011 8:25 NET DEVELOPER SOFTWARE ENGINEER C Caffeine Use Grid Caffeine Use : Current Type : Soft drinks Frequency : Daily YURI STEWART LPN - 05/31/2011 8:25 NET DEVELOPER SOFTWARE ENGINEER C Recreational Drug Use Grid Drug Use : None YURI STEWART LPN - 05/31/2011 8:25 NET DEVELOPER SOFTWARE ENGINEER C Allergy Allergies (Active) Demerol HCl Estimated Onset Date: Unspecified ; Created By: WADE DAIGLE LPN; Reaction Status: Active ; Category: Drug ; Substance: Demerol HCl ; Type: Allergy ; Updated By: WADE DAIGLE LPN;Reviewed Date: 05/16/2011 20:24 NET DEVELOPER SOFTWARE ENGINEER C Source: [facility] POWERCHART Document Id: [id number] NET DEVELOPER SOFTWARE ENGINEER C!27 documented in this encounter Plan of Treatment Not on filedocumented as of this encounter Visit Diagnoses Not on filedocumented in this encounter
--- OUTSIDE RECORDS SUMMARY | 2022-01-29 10:57 | XMS_ITS | Encounter Summary ---
:1970 Author Organization [facility] Address [address] [place] [address] Care Team Providers Name Role Phone None, Pcp Primary Care Provider Unavailable Encounter Details Date Type Department Care Team Description 07/23/2020 Immunization Family Medicine [address] [place] [address] Social History Tobacco Use Types Packs/Day Years Used Date Current Every Day Smoker Cigarettes 0.5 Smokeless Tobacco: Never Used Alcohol Use Standard Drinks/Week Comments Yes 0 (1 standard drink = 0.6 oz pure alcoho l) Sex Assigned at Date Recorded Not on file documented as of this encounter Plan of Treatment Not on filedocumented as of this encounter Visit Diagnoses Not on filedocumented in this encounter Care Teams Military Cook Relationship Specialty Start Date End Date None, Pcp PCP - General Duck Bill Operator 03/30/20 12/19/20 [address] [place] [address] documented as of this encounter
--- OUTSIDE RECORDS SUMMARY | 2022-01-29 10:57 | XMS_ITS | Encounter Summary ---
:1970 Author Organization [facility] Address [address] [place] [address] Care Team Providers Name Role Phone Silvana Velarde APRN, INSIDE SALES PERSON Primary Care Provider [phone] Reason for Visit Reason Onset Date Comments ALLERGIC REACTION 03/06/2018 Encounter Details Date Type Department Care Team Description 03/06/2018 Telephone [place], ALLERGIC REACTION [address] [place] [address] [address] [facility] [address] [phone] [place], [place] [address] Social History Tobacco Use Types Packs/Day Years Used Date Current Every Day Smoker Smokeless Tobacco: Never Used Alcohol Use Standard Drinks/Week Comments Yes 0 (1 standard drink = 0.6 oz pure alcoho l) Sex Assigned at Date Recorded Not on file documented as of this encounter Miscellaneous Notes Telephone Encounter - Shayy Perez MA - 03/06/2018 9:09 AM CST Patient informed ICAL MEDICINE PHYSICIAN Telephone Encounter - Silvana Velared APRN, KEEGAN - 03/06/2018 8:50 AM PHYSICAL MEDICINE PHYSICIAN Absolutely from the Prednisone, have her stop it and return to the Ibuprofen. I will call her when all the lab results are done. Marcell, Magnus ICAL MEDICINE PHYSICIAN Telephone Encounter - Shayy Perez MA - 03/06/2018 8:25 AM CST Could this be a side effect? Is there something else you could prescribe? ICAL MEDICINE PHYSICIAN Telephone Encounter - Kylee Anglin - 03/06/2018 8:10 AM CST The patient stopped in this morning stating she had horrible nightmares and is all shaky. She thinksit's an allergic reaction to the Prednisone and no longer wants to take it. Please advise with plan B. ICAL MEDICINE PHYSICIAN documented in this encounter Plan of Treatment Not on filedocumented as of this encounter Visit Diagnoses Not on filedocumented in this encounter Care Teams Health Consultant Relationship Specialty Start Date End Date Silvana Velarde APRN, INSIDE SALES PERSON PCP - General 11/27/17 12/29/[address] [place] [address] [place] [address] documented as of this encounter
--- OUTSIDE RECORDS SUMMARY | 2022-01-29 10:57 | XMS_ITS | Encounter Summary ---
:1970 Author Organization [facility] Address [address] [place] [address] Care Team Providers Name Role Phone None, Pcp Primary Care Provider Unavailable Reason for Visit Reason Comments Chest Pain Congestion, not pain Encounter Details Date Type Department Care Team Description 10/14/2020 Office Visit Evgeny Green, Bronchitis (Primary [address] MD Dx) [place], [place] [address] [place] [address] [place], [place] [phone] [id number] Social History Tobacco Use Types Packs/Day Years Used Date Former Smoker Cigarettes 05 19 Quit: 06/22/19 21 Smokeless Tobacco: Never Used Alcohol Use Standard Drinks/Week Comments Yes 0 (1 standard drink = 0.6 oz pure alcoho l) Sex Assigned at Date Recorded Not on file documented as of this encounter Last Filed Vital Signs Vital Sign Reading Time Taken Comments Blood Pressure 134/72 10/14/2020 10:13 AM CDT Pulse 84 10/14/2020 10:13 AM CDT Temperature 36.8 ??C (98.3 ??F) 10/14/2020 10:13 AM CDT Respiratory Rate 20 10/14/2020 10:13 AM CDT Oxygen Saturation 95% 10/14/2020 10:13 AM CDT Inhaled Oxygen Concentration - - Weight 97.1 kg (214 lb) 10/14/2020 10:13 AM CDT Height 160.9 cm (5' 3.35) 10/14/2020 10:13 AM CDT Body Mass Index 37.5 10/14/2020 10:13 AM CDT documented in this encounter Patient Instructions Patient InstructionsEvgeny Vann MD - 10/14/2020 10:00 AM CDT Images from the original note were not included. Patient Education Upper Respiratory Infection, Adult An upper respiratory infection (URI) affects the nose, throat, and upper air passages. URIs are caused by germs (viruses). The most common type of URI is often called the common cold. Medicines cannot cure URIs, but you can do things at home to relieve your symptoms. URIs usually getbetter within 7-10 days. Follow these instructions at home: Activity ?? Rest as needed. ?? If you have a fever, stay home from work or school until your fever is gone, or until your doctorsays you may return to work or school. ? You should stay home until you cannot spread the infection anymore (you are not contagious). ? Your doctor may have you wear a face mask so you have less risk of spreading the infection. Relieving symptoms ?? Gargle with a salt-water mixture 3-4 times a day or as needed. To make a salt-water mixture, completely dissolve ??-1 tsp of salt in 1 cup of warm water. ?? Use a cool-mist humidifier to add moisture to the air. This can help you breathe more easily. Eating and drinking ?? Drink enough fluid to keep your pee (urine) pale yellow. ?? Eat soups and other clear broths. General instructions ?? Take dlez-jde-sucuegp and prescription medicines only as told by your doctor. These include cold medicines, fever reducers, and cough suppressants. ?? Do not use any products that contain nicotine or tobacco. These include cigarettes and e-cigarettes. If you need help quitting, ask your doctor. ?? Avoid being where people are smoking (avoid secondhand smoke). ?? Make sure you get regular shots and get the flu shot every year. ?? Keep all follow-up visits as told by your doctor. This is important. How to avoid spreading infection to others ?? Wash your hands often with soap and water. If you do not have soap and water, use hand hi ranger operator. ?? Avoid touching your mouth, face, eyes, or nose. ?? Cough or sneeze into a tissue or your sleeve or elbow. Do not cough or sneeze into your hand or into the air. Contact a doctor if: ?? You are getting worse, not better. ?? You have any of these: ? A fever. ? Chills. ? Brown or red mucus in your nose. ? Yellow or brown fluid (discharge)coming from your nose. ? Pain in your face, especially when you bend forward. ? Swollen neck glands. ? Pain with swallowing. ? White areas in the back of your throat. Get help right away if: ?? You have shortness of breath that gets worse. ?? You have very bad or constant: ? Headache. ? Ear pain. ? Pain in your forehead, behind your eyes, and over your cheekbones (sinus pain). ? Chest pain. ?? You have long-lasting (chronic) lung disease along with any of these: ? Wheezing. ? Long-lasting cough. ? Coughing up blood. ? A change in your usual mucus. ?? You have a stiff neck. ?? You have changes in your: ? Vision. ? Hearing. ? Thinking. ? Mood. Summary ?? An upper respiratory infection (URI) is caused by a germ called a virus. The most common type of URI is often called the common cold. ?? URIs usually get better within 7-10 days. ?? Take kvcf-itz-hkzqinq and prescription medicines only as told by your doctor. This information is not intended to replace advice given to you by your health care provider. Make sure you discuss any questions you have with your health care provider. Document Released: 09/25/2008 Document Revised: 04/17/2019 Document Reviewed: 11/30/2017 Night Out Interactive Patient Education ?? 2020 [email or web address]. documented in this encounter Progress Notes Evgeny Vann MD - 10/14/2020 10:00 AM CDT Images from the original note were not included. Subjective Patient ID: Candy Grullon is a 50 y.o. female. Chief Complaint Patient presents with ??? Chest Pain Congestion, not pain HPI Patient reports since yesterday has had a cough. Has been trying Tylenol but otherwise nothing. Quitsmoking since June she reports she has been seen for bronchitis in the past about a year ago. On review of records she was prescribed azithromycin and cough syrup. She has had the Covid vaccine. She denies any fevers, chills, sick contacts, sore throat, runny nose, headache, diarrhea, abdominal pain,muscle aches aches besides her normal backache related to lifting at her job. The following portions of the patient's chart were reviewed in this encounter and updated as appropriate: Tobacco Allergies Meds Med Hx Surg Hx OB Status Fam Hx Soc Hx ROS ROS done as noted in HPI Objective Visit Vitals BP 134/72 (BP Location: Left arm, Patient Position: Sitting) Pulse 84 Temp 36.8 ??C (98.3 ??F) (Temporal) Resp 20 Ht 1.609 m (5' 3.35) Wt 97.1 kg (214 lb) SpO2 95% BMI 37.50 kg/m?? OB Status Hysterectomy Smoking Status Former Smoker BSA 2.08 m?? Physical Exam GEN: well appearing, no acute distress, vital signs reviewed Neck: No anterior lymphadenopathy CHEST: Lungs CTA taylor, coughing occasionally CV: RRR no murmurs Assessment/Plan Diagnosis Plan 1. Bronchitis Dextromethorphan-guaiFENesin 10-200 MG/5ML liquid albuterol HFA (Ventolin HFA) 108 (90 Base) MCG/ACT inhaler I personally spent a total of 15 minutes in pre-visit work, during-visit work, and post-visit work. Patient Instructions Patient Education Upper Respiratory Infection, Adult An upper respiratory infection (URI) affects the nose, throat, and upper air passages. URIs are caused by germs (viruses). The most common type of URI is often called the common cold. Medicines cannot cure URIs, but you can do things at home to relieve your symptoms. URIs usually getbetter within 7-10 days. Follow these instructions at home: Activity ?? Rest as needed. ?? If you have a fever, stay home from work or school until your fever is gone, or until your doctorsays you may return to work or school. ? You should stay home until you cannot spread the infection anymore (you are not contagious). ? Your doctor may have you wear a face mask so you have less risk of spreading the infection. Relieving symptoms ?? Gargle with a salt-water mixture 3-4 times a day or as needed. To make a salt-water mixture, completely dissolve ??-1 tsp of salt in 1 cup of warm water. ?? Use a cool-mist humidifier to add moisture to the air. This can help you breathe more easily. Eating and drinking ?? Drink enough fluid to keep your pee (urine) pale yellow. ?? Eat soups and other clear broths. General instructions ?? Take xeoe-ixf-oqvqapw and prescription medicines only as told by your doctor. These include cold medicines, fever reducers, and cough suppressants. ?? Do not use any products that contain nicotine or tobacco. These include cigarettes and e-cigarettes. If you need help quitting, ask your doctor. ?? Avoid being where people are smoking (avoid secondhand smoke). ?? Make sure you get regular shots and get the flu shot every year. ?? Keep all follow-up visits as told by your doctor. This is important. How to avoid spreading infection to others ?? Wash your hands often with soap and water. If you do not have soap and water, use hand hi ranger operator. ?? Avoid touching your mouth, face, eyes, or nose. ?? Cough or sneeze into a tissue or your sleeve or elbow. Do not cough or sneeze into your hand or into the air. Contact a doctor if: ?? You are getting worse, not better. ?? You have any of these: ? A fever. ? Chills. ? Brown or red mucus in your nose. ? Yellow or brown fluid (discharge)coming from your nose. ? Pain in your face, especially when you bend forward. ? Swollen neck glands. ? Pain with swallowing. ? White areas in the back of your throat. Get help right away if: ?? You have shortness of breath that gets worse. ?? You have very bad or constant: ? Headache. ? Ear pain. ? Pain in your forehead, behind your eyes, and over your cheekbones (sinus pain). ? Chest pain. ?? You have long-lasting (chronic) lung disease along with any of these: ? Wheezing. ? Long-lasting cough. ? Coughing up blood. ? A change in your usual mucus. ?? You have a stiff neck. ?? You have changes in your: ? Vision. ? Hearing. ? Thinking. ? Mood. Summary ?? An upper respiratory infection (URI) is caused by a germ called a virus. The most common type of URI is often called the common cold. ?? URIs usually get better within 7-10 days. ?? Take fjte-vzp-bvbelqf and prescription medicines only as told by your doctor. This information is not intended to replace advice given to you by your health care provider. Make sure you discuss any questions you have with your health care provider. Document Released: 09/25/2008 Document Revised: 04/17/2019 Document Reviewed: 11/30/2017 [employer] Out Interactive Patient Education ?? 2020 [email or web address]. Return if symptoms worsen or fail to improve. Note created using voice dictation software. documented in this encounter Plan of Treatment Not on filedocumented as of this encounter Visit Diagnoses Diagnosis Bronchitis - Primary Bronchitis, not specified as acute or ch ronic documented in this encounter Care Teams Paintless Dent Repair Technician Relationship Specialty Start Date End Date None, Pcp PCP - General Bus Repair Supervisor 03/30/20 12/19/20 [address] [place] [address] documented as of this encounter
--- OUTSIDE RECORDS SUMMARY | 2022-01-29 10:57 | XMS_ITS | Encounter Summary ---
:1970 Author Organization [facility] Address [address] [place] [address] Care Team Providers Name Role Phone Silvana Velarde APRN, CNP Primary Care Provider [phone] Reason for Referral Consultation (Routine) - Closed Specialty Diagnoses / Procedures Referred By Contact Refer red To Contact Rheumatology Diagnoses Polyarticular arthritis Silvana Velarde, [place] - Referrals [facility] [address] [facility] [address] [place] [address] [place] [address] Fax: Referral ID Status Reason Start Date Expiration Date Visits Requ ested Visits Authorized [id number] Closed 03/11/2018 09/07/2018 1 1 Scheduling Instructions Please schedule at [place] in [place]. IO OPERATION ENGINEER Encounter Details Date Type Department Care Team Description 03/11/2018 Orders Only [place] Silvana Velarde Polyarticular arthritis [address], KEEGAN HUNT (Primary Dx) [place], [place] 100 [facility] [address] [place] [address] Social History Tobacco Use Types Packs/Day Years Used Date Current Every Day Smoker Smokeless Tobacco: Never Used Alcohol Use Standard Drinks/Week Comments Yes 0 (1 standard drink = 0.6 oz pure alcoho l) Sex Assigned at Date Recorded Not on file documented as of this encounter Plan of Treatment Scheduled Referrals Name Type Priority Associated Diagnoses Order S chedule Ambulatory External Outpatient Referral Routine Polyarticular Ordered: Referral arthritis 03/11/2018 documented as of this encounter Visit Diagnoses Diagnosis Polyarticular arthritis - Primary Unspecified polyarthropathy or polyarthr itis, site unspecified documented in this encounter Care Teams Electrical Tech Relationship Specialty Start Date End Date Silvana Velarde, SUPERVISOR TELLERS, GERMINATION TESTING MANAGER PCP - General 11/27/17 12/29/19 100 [facility] [place] [address] documented as of this encounter
--- OUTSIDE RECORDS SUMMARY | 2022-01-29 10:57 | XMS_ITS | Encounter Summary ---
:1970 Author Organization [facility] Address [address] [place] [address] Care Team Providers Name Role Phone None, Pcp Primary Care Provider Unavailable Encounter Details Date Type Department Care Team Description 03/31/2020 Lab [place] Impaired fasting glucose; [address] Elevated blood pressure read ing LENA K[place] [address] Social History Tobacco Use Types Packs/Day Years [...] Procedure Name Priority Date/Time Associated Comments Diagnosis GLOMERULAR Routine 03/31/2020 8:35 AM Elevated blood Results for this FILTRATION RATE PANEL BUILDER pressure reading procedur e are in the results section. HEMOGLOBIN A1C Routine 03/31/2020 8:35 AM Impaired fasting Res ults for this PANEL BUILDER glucose procedure are i n the results section. LIPID PANEL Routine 03/31/2020 8:35 AM Impaired fasting Resul ts for this PANEL BUILDER glucose procedure are i n the results section. BASIC METABOLIC Routine 03/31/2020 8:35 AM Elevated blood Resu lts for this PANEL PANEL BUILDER pressure reading procedure a re in the results section. documented in this encounter Results Glomerular filtration rate (GFR) (03/31/2020 8:35 AM PANEL BUILDER) P athologist Signature GFR >60 03/31/2020 [facility] 9:21 AM [facility] >60 03/31/2020 [facility] Georgian GFR 9:21 AM [facility] Comment: GFR calculated from serum creatinine v alue Chronic Kidney Disease less than 60 mL/m in/1.73 m2 Kidney Failure less than 15 mL/min/1.73 m2 Note: effective 09/05/06 IDMS-Traceable MDRD Study Equation used. Specimen Anatomical Collection Method Collection Time Receive d Time (Source) Location / / Volume Laterality 03/31/2020 8:35 AM 0 8:35 PANEL BUILDER AM PANEL BUILDER Evgeny Vann MD LAB BLOOD ORDERABLES Performing Organization Address City/[facility]/ZIP Code Phon e Number [facility] [address] [place] [address] (ABNORMAL) Basic metabolic panel (03/31/2020 8:35 AM PANEL BUILDER) P athologist Signature Sodium 140 135 - 145 03/31/2020 [facility] mmol/L 9:21 AM [facility] [place] Potassium 4.3 3.5 - 5.1 03/31/2020 [facility] mmol/L 9:21 AM [facility] [place] Comment: . Chloride 101 98 - 107 mmol/L 03/31/2020 9:21 AM PANEL BUILDER [facility] [place] [place] Comment: . CO2 28 22 - 29 mmol/L 03/31/2020 9:21 AM PANEL BUILDER [facility] [place] Comment: . Creatinine 0.7 0.4 - 1.2 mg/dL 03/31/2020 9:21 AM PANEL BUILDER C [place] Comment: . BUN 13 5 - 25 mg/dL 03/31/2020 9:21 AM PANEL BUILDER C [place] Comment: . Glucose 103 (H) 70 - 100 mg/dL 03/31/2020 9:21 AM PANEL BUILDER OM [facility] [place] Calcium, Total,S 9.3 8.4 - 10.2 mg/dL 03/31/2020 9:21 AM PANEL BUILDER C [place] Comment: . Specimen Anatomical Collection Method Collection Time Receive d Time (Source) Location / / Volume Laterality Blood (Blood, 03/31/2020 8:35 AM 03/31/20 20 8:35 Venous) PANEL BUILDER AM PANEL BUILDER Evgeny Vann MD LAB BLOOD ORDERABLES Performing Organization Address City/[facility]/ZIP Code Phon e Number [facility] [place] [address] [place] [address] Hemoglobin A1c (03/31/2020 8:35 AM PANEL BUILDER) P athologist Signature Hemoglobin A1C 5.4 4.0 - 5.6 03/31/2020 [facility] % A1C 1:51 PM [facility] Comment: Reference Range 4.0-5.6% is for non-preg nant adults >=18 yrs <5.6% ? Non-Diabetic 5.7-6.4% ??Increased risk of Diabetes >=6.5% ?Indicative of Diabetes <7.0% ? ADA goal for glycemic contro l Methodology may not detect all hemoglobi n variants which can affect A1c results. Method certified by National Glycohemoglobin Standardization Program. Specimen Anatomical Collection Method Collection Time Receive d Time (Source) Location / / Volume Laterality Blood (Blood, 03/31/2020 8:35 AM 03/31/20 20 1:09 Venous) PANEL BUILDER PM PANEL BUILDER Evgeny Vann MD LAB BLOOD ORDERABLES Performing Organization Address City/State/ZIP Code Phon e Number [facility] [address] [place] [address] (ABNORMAL) Lipid panel (03/31/2020 8:35 AM PANEL BUILDER) athologist Signature Cholesterol 187 0 - 199 03/31/2020 [facility] mg/dL 2:35 PM [facility] Comment: Recommended by National Cholesterol Education Program (ATP III) -------- Cholesterol Ranges -------- <200 ?Desirable 200-239 ? Borderline high >=240 ? High Triglycerides 48 0 - 149 mg/dL 03/31/2020 2:35 PM [facility] Comment: -------- TRIG Ranges -------- <150 ?Normal 150-199 ? Borderline high 200-499 ? High >=500 ? Very high HDL 68 40 - 250 mg/dL 03/31/2020 2:35 PM [facility] Comment: -------- HDL Ranges -------- <40 ?Low 40-59 ?Normal >=60 ? Optimal LDL Calculated 109 (H) 0 - 99 mg/dL 03/31/2020 2:35 PM PANEL BUILDER [facility] Comment: -------- LDL Ranges -------- <100 ? Optimal 100-129 ?Near optimal/above op timal 130-159 ?Borderline high 160-189 ?High >=190 ?Very high Fasting? Yes 03/31/2020 8:35 AM PANEL BUILDER [facility] Specimen Anatomical Collection Method Collection Time Receive d Time (Source) Location / / Volume Laterality Blood (Blood, 03/31/2020 8:35 AM 03/31/20 20 1:09 Venous) PANEL BUILDER PM PANEL BUILDER Evgeny Vann MD LAB BLOOD ORDERABLES Performing Organization Address City/State/ZIP Code Phon e Number [facility] [address] [address] documented in this encounter Visit Diagnoses Diagnosis Impaired fasting glucose Elevated blood pressure reading Elevated blood pressure reading without diagnosis of hypertension documented in this encounter Care Teams Box Spring Frame Builder Relationship Specialty Start Date End Date None, Pcp PCP - General Customer Consultant 03/30/20 12/19/20 [address] [place] [address] documented as of this encounter
--- OUTSIDE RECORDS SUMMARY | 2022-01-29 10:57 | XMS_ITS | Encounter Summary ---
:1970 Author Organization [facility] Address [address] [place] [address] Care Team Providers Name Role Phone Silvana Velarde APRN, KEEGAN Primary Care Provider [phone] Reason for Visit Reason Onset Date Comments RX 07/14/2019 Encounter Details Date Type Department Care Team Description 07/14/2019 [place] [address] [place] [address] [address] [facility] [address] [phone] [place], [place] [address] Social History Tobacco Use Types Packs/Day Years Used Date Current Every Day Smoker Smokeless Tobacco: Never Used Alcohol Use Standard Drinks/Week Comments Yes 0 (1 standard drink = 0.6 oz pure alcoho l) Sex Assigned at Date Recorded Not on file documented as of this encounter Miscellaneous Notes Telephone Encounter - Lois Wilkinson LPN - 07/15/2019 10:12 AM CDT The patient has been made aware. Telephone Encounter - Lois Wilkinson LPN - 07/14/2019 12:47 PM CDT [facility] Telephone Encounter - Silvana Velarde APRN, CNP - 07/14/2019 11:10 AM CDT Osito Agudelo Telephone Encounter - Lois Wilkinson LPN - 07/14/2019 10:49 AM CDT Symptoms: No Symptoms Would like one on hand because her has Thyroid cancer and if she comes down with anything she can start it right away. He is having surgery down at [place] on August 05. She just wants it for preventative. Telephone Encounter - Libra Chen - 07/14/2019 10:43 AM CDT Patient would like to speak to a nurse about ZPAC. Please call her at [phone]. documented in this encounter Plan of Treatment Not on filedocumented as of this encounter Visit Diagnoses Diagnosis Cough - Primary documented in this encounter Care Teams Lacquer Sizer Relationship Specialty Start Date End Date Silvana Velarde APRN, CLINICAL FACULTY PCP - General 11/27/17 12/29/19 100 [facility] [place] [address] documented as of this encounter
--- OUTSIDE RECORDS SUMMARY | 2022-01-29 10:57 | XMS_ITS | Encounter Summary ---
:1970 Author Organization [facility] Address [address] [place] [address] Care Team Providers Name Role Phone Silvana Velarde GROUND SOURCE HEAT PUMP TECHNICIAN, CITY SUPERINTENDENT OF SCHOOLS Primary Care Provider [phone] Reason for Visit Reason Onset Date Comments APPT CANCEL 04/04/2018 Encounter Details Date Type Department Care Team Description 04/04/2018 Telephone [place] Silvana Velarde, APPT CANCEL [address] GROUND SOURCE HEAT PUMP TECHNICIAN, CITY [employer]PER[employer] [place], [place] [address] [address] [facility] [address] [phone] [place], [place] [address] Social History Tobacco Use Types Packs/Day Years Used Date Current Every Day Smoker Smokeless Tobacco: Never Used Alcohol Use Standard Drinks/Week Comments Yes 0 (1 standard drink = 0.6 oz pure alcoho l) Sex Assigned at Date Recorded Not on file documented as of this encounter Miscellaneous Notes Telephone Encounter - Shayy Perez MA - 04/04/2018 11:05 AM CST FYI WORKERS Telephone Encounter - Kylee Anglin - 04/04/2018 10:59 AM CST The patient called to cancel her appt tomorrow with [facility] and wanted to let her know that she just found Aleve Back and Joint pain and it's really helped. She also has a rheumatology appt coming up yet in March at [facility]. She noticed enough improvement, that she didn't think she'd need towaste your time. WORKERS documented in this encounter Plan of Treatment Not on filedocumented as of this encounter Visit Diagnoses Not on filedocumented in this encounter Care Teams Pre Coder Relationship Specialty Start Date End Date Silvana Velarde APRN, [employer] PCP - General 11/27/17 12/29/19 100 [facility] [place] [address] documented as of this encounter
--- OUTSIDE RECORDS SUMMARY | 2022-01-29 10:57 | XMS_ITS | Encounter Summary ---
:1970 Author Organization [facility] Address [address] [place] [address] Care Team Providers Name Role Phone Silvana Velarde APRN, THERMO PROCESSOR Primary Care Provider [phone] Encounter Details Date Type Department Care Team Description 06/23/2019 Travel Social History Tobacco Use Types Packs/Day Years [...] on filedocumented in this encounter Care Teams Bean Snipper Relationship Specialty Start Date End Date Silvana Velarde APRN, THERMO PROCESSOR PCP - General 11/27/17 12/29/19 100 [facility] [address] documented as of this encounter
--- OUTSIDE RECORDS SUMMARY | 2022-01-29 10:57 | XMS_ITS | Encounter Summary ---
:[address] [facility] Address [address] [place] [address] Care Team Providers Name Role Phone Evgeny Vann MD Primary Care Provider Reason for Visit Reason Onset Date Comments Colonoscopy 12/01/2021 Encounter Details Date Type Department Care Team Description 12/01/2021 Telephone [place] Evgeny Vann MD Colonoscopy [address] [place], [place] [address] [place], [place] [phone] (Wo rk) Social History Tobacco Use Types Packs/Day Years Used Date Former Smoker Cigarettes 1 27 Quit: 06/22/19 21 Smokeless Tobacco: Never Used Alcohol Use Standard Drinks/Week Comments Yes 0 (1 standard drink = 0.6 oz pure alcoho l) Sex Assigned at Date Recorded Not on file documented as of this encounter Miscellaneous Notes Telephone Encounter - Talya Martinez - 01/05/2022 3:12 PM CDT Left message requesting annual exam and also if Pt has taken cares elsewhere. Telephone Encounter - Talya Martinez - 12/20/2021 2:04 PM CDT Left message requesting annual exam, also asked if Pt has taken cares elsewhere. Telephone Encounter - Leonie Chatterjee RN - 12/01/2021 11:07 AM CDT Please call to schedule. Telephone Encounter - Danita Gerard RN - 12/01/2021 10:53 AM CDT Primary Provider: Evgeny Vann MD Last Visit: 10/14/20 Due: Colon screening. Annual exam. documented in this encounter Plan of Treatment Not on filedocumented as of this encounter Visit Diagnoses Not on filedocumented in this encounter Care Teams Senior Digital Designer Relationship Specialty Start Date End Date Evgeny Vann MD PCP - General 12/20/[address] [place] [address] documented as of this encounter
--- OUTSIDE RECORDS SUMMARY | 2022-01-29 10:57 | XMS_ITS | Encounter Summary ---
:1970 Author Organization [facility] Address [address] [place] [address] Care Team Providers Name Role Phone None, Pcp Primary Care Provider Unavailable Encounter Details Date Type Department Care Team Description 08/13/2020 Immunization Family Medicine [address] [place] [address] Social History Tobacco Use Types Packs/Day Years [...] on filedocumented in this encounter Care Teams Security Test Engineer Relationship Specialty Start Date End Date None, Pcp PCP - General Miniature Model Maker 03/30/20 12/19/20 [address] [place] [address] documented as of this encounter
--- OUTSIDE RECORDS SUMMARY | 2022-01-29 10:57 | XMS_ITS | Encounter Summary ---
:1970 Author Organization [facility] Address [address] [place] [address] Care Team Providers Name Role Phone None, Pcp Primary Care Provider Unavailable Reason for Visit Reason Comments Eye Encounter Details Date Type Department Care Team Description 08/02/2020 Office Visit Shawna Quintanilla Acute bacterial conjunctivit is of right eye (Primary Dx); [address] [facility] [place] Vasquez Acute nonintractable headache, unspecifi ed headache type [place] [address] [address] [phone] [place] [id number] Social History Tobacco Use Types Packs/Day Years Used Date Current Every Day Smoker Cigarettes 0.5 Smokeless Tobacco: Never Used Alcohol Use Standard Drinks/Week Comments Yes 0 (1 standard drink = 0.6 oz pure alcoho l) Sex Assigned at Date Recorded Not on file documented as of this encounter Last Filed Vital Signs Vital Sign Reading Time Taken Comments Blood Pressure 130/82 08/02/2020 9:12 AM CDT Pulse 100 08/02/2020 9:12 AM CDT Temperature 36.3 ??C (97.3 ??F) 08/02/2020 9:12 AM CDT Respiratory Rate 16 08/02/2020 9:12 AM CDT Oxygen Saturation 98% 08/02/2020 9:12 AM CDT Inhaled Oxygen Concentration - - Weight 97.5 kg (215 lb) 08/02/2020 9:12 AM CDT Height 160 cm (5' 2.99) 08/02/2020 9:12 AM CDT Body Mass Index 38.1 08/02/2020 9:12 AM CDT documented in this encounter Progress Notes Shawna Waite MD - 08/02/2020 9:40 AM CDT Estab Patient Visit Subjective Patient ID: Candy Grullon is a 50 y.o. female. HPI the patient is here today because of her right eye drainage with matter for 2 days along with associated mild headache. The patient is our otherwise healthy 50-year-old individual who does not wear contacts does not haveallergies currently [place] do not have any specific outdoor animals such as cattle chickens and so forth. She woke Sunday morning noticing that she was having some matter in the left corner of her right eye along with a crusty drainage. She has not had much redness of either eye but there is some soreness and this is also created just a little bit of headache feeling across her forehead. No fevers no chills no ear pain no sore throat no adenopathy. She has not been exposed to anyone with pinkeye or conjunctivitis. Review of Systems Objective Physical Exam she is alert she appears comfortable her vital signs are stable with a current blood pressure 130/82 pulse 100 temp 97.3 current weight 215 pounds O2 sats 90% at rest and her BMI is 38 Both of the ears were normal no swelling ear canal tenderness TMs were fine Her right eye has a little swelling minimal tenderness over the lacrimal duct area little bit of drainage again minimal erythema. Her throat is clear her neck has no adenopathy Assessment/Plan Diagnoses and all orders for this visit: Acute bacterial conjunctivitis of right eye - gentamicin (GARAMYCIN) 0.3 % ophthalmic solution; Instill 2 drops four times a day in affected eyefor up to 7 days for conjuntivitis Acute nonintractable headache, unspecified headache type - acetaminophen-codeine (TYLENOL/CODEINE #3) 300-30 MG per tablet; May take 1-2 every 6 hours if needed for acute headache The overall assessment is conjunctivitis right eye possibly starting to affect her right tear duct. Plan at this time is gentamicin as stated if she does not improve or gets worse she will let us know. We also sent in for her 20 Tylenol threes which she says she has had before without any side effectsand she like to use that for this headache just at nighttime to help her sleep a little bit better. We also discussed getting a mammogram which she will be doing fairly soon at [facility] as well as we discussed colon cancer screening. documented in this encounter Plan of Treatment Not on filedocumented as of this encounter Visit Diagnoses Diagnosis Acute bacterial conjunctivitis of right eye - Primary Acute nonintractable headache, unspecifi ed headache type documented in this encounter Care Teams Customer Care Professional Relationship Specialty Start Date End Date None, Pcp PCP - General Bilingual Teacher Aide 03/30/20 12/19/20 [address] [place] [address] documented as of this encounter
--- OUTSIDE RECORDS SUMMARY | 2022-01-29 10:57 | XMS_ITS | Encounter Summary ---
:1970 Author Organization [facility] Address [address] [place] [address] Care Team Providers Name Role Phone Silvana Velarde APRN, CNP Primary Care Provider [phone] Reason for Visit Reason Comments Generalized Body Aches Encounter Details Date Type Department Care Team Description 03/05/2018 Office Visit [place] Polyarticular arthritis (Adamaris robina Dx); [address], [place]T Paresthesia of both hands LENA Kiser [address] [facility] [address] [address] [place] [address] Social History Tobacco Use Types Packs/Day Years Used Date Current Every Day Smoker Smokeless Tobacco: Never Used Alcohol Use Standard Drinks/Week Comments Yes 0 (1 standard drink = 0.6 oz pure alcoho l) Sex Assigned at Date Recorded Not on file documented as of this encounter Last Filed Vital Signs Vital Sign Reading Time Taken Comments Blood Pressure 124/80 03/05/2018 8:03 AM [employer] RESPONDER Pulse 84 03/05/2018 8:03 AM [employer]ENSE INCIDENT RESPONDER Temperature 37.3 ??C (99.2 ??F) 03/05/2018 8:03 AM [employer]BER [employer]ENSE INCIDENT RESPONDER Respiratory Rate 18 03/05/2018 8:03 AM [employer]ENSE INCIDENT RESPONDER Oxygen Saturation 97% 03/05/2018 8:03 AM CYBER [employer]ENSE INCIDENT RESPONDER Inhaled Oxygen Concentration - - Weight 97 kg (213 lb 13.5 oz) 03/05/2018 8:03 AM [employer]ENSE INCIDENT RESPONDER Height 160.5 cm (5' 3.19) 03/05/2018 8:03 AM [employer]ENSE INCIDENT RESPONDER Body Mass Index 37.65 03/05/2018 8:03 AM [employer]BER DEFENSE INCIDENT RESPONDER documented in this encounter Patient Instructions Patient InstructionsChchuyita Velarde APRN, CNP - 03/05/2018 8:00 AM CYBER [employer]ENSE INCIDENT RESPONDER Will call the lab results Medrol Dose pack as directed, no ibuprofen when on the Medrol Dosepak, but can resume Ibuprofen whencompleted R DEFENSE INCIDENT RESPONDER documented in this encounter Progress Notes Silvana Velarde APRN, CNP - 03/05/2018 8:00 AM CST Estab Patient Visit Subjective Patient ID: Candy Grullon is a 47 y.o. female presenting for the following concerns. Chief Complaint Patient presents with ??? Generalized Body Aches HPI: The patient is a pleasant 47-year-old right hand dominant female presenting ambulatory to the clinical setting today with joint pain, which started 4 weeks ago, and is definitely worsening. The patientreports the joints affected include her elbows, right hip, knees, and ankles bilaterally. The patient possibly noticed the discomfort in her left elbow first, which is now starting to swell, she has some swelling in her left knee as well. The patient has had arthroscopic procedures on her left knee, her first surgery was at the age of 40, so the swelling in this joint is not as concerning. The patient has right hip pain shooting in nature. The patient reports despite her symptoms she does not feel weak nor has limited range of motion of her joints. She reports her joint pain is causing her to limp.The patient has noticed intermittent numbness and tingling in her fingers for the past month, with no associated weakness, and not always as night. There is no warmth or skin color changes over the joints. 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 No weight loss, no night sweats. The patient is sleeping an average about 6-7 hours a day, as her symptoms are awakening her. No nausea, vomiting nor diarrhea. The patient does spend a great deal of time outdoors but does not feel she has come in contact with a deer tick. No bull's-eye rash in thepast couple of months. The patient reports a co-worker had mentioned she has had facial flushing a couple of days ago, which was an atypical appearance for her. The patient has been taking Tylenol every 4 to 6 hours, and ibuprofen fairly consistently, 2 tablets every 4 hours while awake, without relief of her worsening symptoms. The patient's sister has lupus, her father has ALS, and her mother has Parkinson's and fibromyalgia. The patient reports multiple family members have bipolar disorder. The patient continues to smoke three fourths of a pack of cigarettes per day, despite previous consultation to consider smoking cessation. ROS: GENERAL: No fever, chills, sweats, or change in weight. The patient is uncertain if her fatigue level is worsening, as she works nights. The patient has been experiencing insomnia from her pain. INTEGUMENTARY: The patient reports a co-worker had noticed the patient had facial flushing a couple of days ago. The patient does spend a great deal of time outdoors, but no bull's-eye rash in the pastcouple of months. GASTROINTESTINAL: No nausea, vomiting, and/or diarrhea. MUSCULOSKELETAL: See HPI. The patient has developed polyarticular joint pain for the past month including her elbows, right hip, knees and ankles bilaterally, this pain is worsening. The patient developed swelling along the inner aspect of her left elbow and anterior left knee. NEUROLOGICAL: See HPI. The patient has experienced a paresthesia feeling in all of her fingers intermittently over the past month. The following portions of the patient's chart were reviewed in this encounter and updated as appropriate: Tobacco Allergies Meds Problems Med Hx Surg Hx Fam Hx Soc Hx Objective Visit Vitals BP 124/80 (BP Location: Left arm, Patient Position: Sitting) Pulse 84 Temp 37.3 ??C (99.2 ??F) (Temporal) Resp 18 Ht 1.605 m (5' 3.19) Wt 97 kg (213 lb 13.5 oz) SpO2 97% BMI 37.65 kg/m?? Smoking Status Current Every Day Smoker BSA 2.08 m?? GENERAL: The patient is alert, orientated, and in no apparent distress. INTEGUMENTARY: Skin is warm and dry. No facial rash. MUSCULOSKELETAL: The patient moves freely about the room, but was noted to be limping. The patient'sleft elbow is swollen along the medial aspect approximately the size of a baseball with no erythema,bruising, or warmth. The patient has joint swelling over her anterior left knee. The ankles appear normal with no limited range of motion, swelling, warmth, and/or erythema. DIAGNOSTICS: ESR, CRP, CBC with differential, rheumatoid factor, BREN, vitamin B12, thyroid cascade, Lyme's disease, CCP, uric acid, and BMP. Results pending at the time of this dictation. Offered to doa left elbow xray, the patient declined. Assessment/Plan Encounter Diagnoses Name Primary? Polyarticular arthritis Yes ??? Paresthesia of both hands Discussed the plan of care with the patient. Prescribed Tylenol #3 one tablet every 4 hours as needed, quantity of 30 tablets, with no refills, and a Medrol Dosepak. The patient should hold the ibuprofen while on the Medrol Dosepak, and no more then 4,000 mg of tylenol in a 24 hour period. Will notifythe patient of her lab results and develop a further plan of care, which will likely be a rheumatology referral for evaluation and treatment. The patient agrees and understands this plan of care. Silvana Velarde APRN, [employer] WAREHOUSE DEVELOPER R DEFENSE INCIDENT RESPONDER documented in this encounter Plan of Treatment Not on filedocumented as of this encounter Results (ABNORMAL) Basic metabolic panel (03/05/2018 8:47 AM CYBER DEFENSE INCIDENT RESPONDER) P athologist Signature Sodium 140 135 - 145 03/05/2018 [facility] [place] mmol/L 9:39 AM [employer] INCIDENT RESPONDER [place] Potassium 3.8 3.5 - 5.1 03/05/2018 [facility] [place] mmol/L 9:39 AM [employer]BER DEFENSE INCIDENT RESPONDER [place] Comment: . Chloride 103 98 - 107 mmol/L 03/05/2018 9:39 AM CYBER DEFENSE INCIDENT RESPONDER [facility] [place] Comment: . CO2 26 22 - 29 mmol/L 03/05/2018 9:39 AM CYBER DEFENSE INCIDENT RESPONDER [facility] [place] Comment: . Creatinine 0.8 0.4 - 1.2 mg/dL 03/05/2018 9:39 AM CYBER DEFENSE INCIDENT RESPONDER [facility] [place] Comment: . BUN 18 5 - 25 mg/dL 03/05/2018 9:39 AM CYBER DEFENSE INCIDENT RESPONDER [facility] [place] Comment: . Glucose 102 (H) 70 - 100 mg/dL 03/05/2018 9:39 AM CYBER DEFENSE INCIDENT RESPONDER [facility] [place] Calcium, Total,S 9.8 8.4 - 10.2 mg/dL 03/05/2018 9:39 AM CYBER DEFENSE INCIDENT RESPONDER [facility] [place] Comment: . Fasting? Yes 03/05/2018 8:55 AM CYBER DEFENSE INCIDENT RESPONDER [facility] CAN NON FALLS Specimen Anatomical Collection Method Collection Time Receive d Time (Source) Location / / Volume Laterality Blood (Blood, 03/05/2018 8:47 AM 03/05/20 8:47 Venous) CY[employer] DEFENSE INCIDENT RESPONDER AM CYBER DEFENSE INCIDENT RESPONDER Silvana Velarde APRN, CNP LAB BLOOD ORDERABLES Performing Organization Address City/[facility]/ZIP Code Phon e Number [facility] [place] [address] [place] [address] (ABNORMAL) Uric acid (03/05/2018 8:47 AM CYBER DEFENSE INCIDENT RESPONDER) athologist Signature Uric Acid 6.3 (H) 2.1 - 6.1 03/05/2018 [facility] mg/dL 2:13 PM [facility] Specimen Anatomical Collection Method Collection Time Receive d Time (Source) Location / / Volume Laterality Blood (Blood, 03/05/2018 8:47 AM 03/05/20 Venous) CY[employer] DEFENSE INCIDENT RESPONDER 12:17 PM CYBER DEFENSE INCIDENT RESPONDER Silvana Velarde APRN, CNP LAB BLOOD ORDERABLES Performing Organization Address City/State/ZIP Code Phon e Number [facility] [address] [place] [phone] Thyroid Function [place] (03/05/2018 8:47 AM CYBER DEFENSE INCIDENT RESPONDER) athologist Signature TSH, Sensitive 3.57 0.46 - 03/05/2018 [facility] 4.68 mIU/L 1:50 PM CY[facility] DEFENSE INCIDENT RESPONDER [facility] Comment: The results from this or any other diagn ostic test should be used and interpreted only in the context of the overall clinical picture. Biotin levels in serum remain elevated f or up to 24 hours after oral or intravenous biotin adminis tration and may interfere with this assay to produce unr eliable results. Heterophilic antibodies in serum or plas ma samples may cause interference in immunoassays. ??Exposure to animal antigens, either in the environment or as part of treatment or imaging procedures, may have circulating anti-an imal antibodies present. These antibodies may interfere with the assay reagents to produce unreliable results. ??Results which are inconsistent with clinical observations indicate the need for additional testing. Specimen Anatomical Collection Method Collection Time Receive d Time (Source) Location / / Volume Laterality Blood (Blood, 03/05/2018 8:47 AM 03/05/20 Venous) CY[employer] DEFENSE INCIDENT RESPONDER 12:19 PM CYBER DEFENSE INCIDENT RESPONDER Silvana Velarde APRN, CNP LAB BLOOD ORDERABLES Performing Organization Address City/[facility]/ZIP Code Phon e Number [facility] [address] [place] [phone] Vitamin B12 (03/05/2018 8:47 AM CYBER DEFENSE INCIDENT RESPONDER) athologist Signature Vitamin B-12 670 025 - 726 03/05/2018 [facility] pg/mL 2:23 PM CYBER DEFENSE INCIDENT RESPONDER [facility] Comment: The results from this or any other diagn ostic test should be used and interpreted only in the context of the overall clinical picture. Biotin levels in serum remain elevated f or up to 24 hours after oral or intravenous biotin adminis tration and may interfere with this assay to produce unr eliable results. Exposure to animal antigens, either in t he environment or as part of treatment or imaging procedur es, may have circulating anti-animal antibodies prese nt. These antibodies may interfere with the assay reagents to produce unreliable results. Specimen Anatomical Collection Method Collection Time Receive d Time (Source) Location / / Volume Laterality Blood (Blood, 03/05/2018 8:47 AM 03/05/20 Venous) [employer] DEFENSE INCIDENT RESPONDER 12:19 PM CYBER DEFENSE INCIDENT RESPONDER Silvana Velarde APRN, CNP LAB BLOOD ORDERABLES Performing Organization Address [facility]/ZIP Code Phon e Number [facility] [address] [place] [phone] Cyclic citrul peptide antibody, IgG (03/05/2018 8:47 AM CYBER DEFENSE INCIDENT RESPONDER) athologist Signature Cyclic <15.6 <20.0 03/06/2018 [facility] Citrullin (Negative) 2:01 PM CYBER DEFENSE INCIDENT RESPONDER LAB[facility]ATORIES Peptide Ab U Comment: Test Performed by: [facility] [address] [place] [id number] Specimen Anatomical Collection Method Collection Time Receive d Time (Source) Location / / Volume Laterality Blood (Blood, 03/05/2018 8:47 AM 03/05/20 1:31 Venous) CY[employer] DEFENSE INCIDENT RESPONDER PM [employer]BER DEFENSE INCIDENT RESPONDER Silvana Velarde APRN, CNP LAB BLOOD ORDERABLES Performing Organization Address City/[facility]/ZIP Code Phon e Number [facility] see result attachment for specific address BREN (03/05/2018 8:47 AM CYBER DEFENSE INCIDENT RESPONDER) athologist Signature BREN 0.2 <=1.0 03/06/2018 [facility] (Negative) 2:01 PM CYBER DEFENSE INCIDENT RESPONDER LAB[facility]ATORIES U Comment: Test Performed by: [facility] [address] [place] [address] Specimen Anatomical Collection Method Collection Time Receive d Time (Source) Location / / Volume Laterality Blood (Blood, 03/05/2018 8:47 AM 03/05/20 18 1:31 Venous) CYBER DEFENSE INCIDENT RESPONDER PM CYBER DEFENSE INCIDENT RESPONDER Silvana Velarde APRN, CNP LAB BLOOD ORDERABLES Performing Organization Address [facility] Code Phon e Number [facility] see result attachment for specific address Lyme Disease Serology (03/05/2018 8:47 AM CYBER DEFENSE INCIDENT RESPONDER) [facility] Method Time Signature Lyme Disease Negative Negative 03/06/2018 [facility] Serology 1:00 PM CYBER DEFENSE INCIDENT RESPONDER LABORATORIES Comment: No evidence of antibodies to B. burgdorf darrion detected. False negative results may occur in rece ntly infected patients (<=2 weeks) due to low or undet ectable antibody levels to B. burgdorferi. If recent expo sure is suspected, a second sample should be collected and tested in 2-4 weeks. Test Performed by: [facility] [place] [address] Specimen Anatomical Collection Method Collection Time Receive d Time (Source) Location / / Volume Laterality Blood (Blood, 03/05/2018 8:47 AM 03/05/20 18 1:31 Venous) CY[employer] DEFENSE INCIDENT RESPONDER PM [employer] DEFENSE INCIDENT RESPONDER Silvana Velarde APRN, CNP LAB BLOOD ORDERABLES Performing Organization Address City/[facility]/ZIP Code Phon e Number [facility] Complex Media [facility] see result attachment for specific address Rheumatoid factor (03/05/2018 8:47 AM CYBER DEFENSE INCIDENT RESPONDER) athologist Signature Rheumatoid 6 1 - 11 03/05/2018 [facility] Factor IU/mL 1:25 PM CYBER DEFENSE INCIDENT RESPONDER [facility] Specimen Anatomical Collection Method Collection Time Receive d Time (Source) Location / / Volume Laterality Blood (Blood, 03/05/2018 8:47 AM 03/05/20 18 Venous) CY[employer] DEFENSE INCIDENT RESPONDER 12:19 PM CYBER DEFENSE INCIDENT RESPONDER Silvana Velarde APRN, CNP LAB BLOOD ORDERABLES Performing Organization Address City/[facility]/ZIP Code Phon e Number [facility] [address] [place] [phone] C-reactive protein (03/05/2018 8:47 AM CYBER DEFENSE INCIDENT RESPONDER) athologist Signature CRP 6.7 0.0 - 9.9 03/05/2018 [facility] mg/L 1:42 PM CYBER DEFENSE INCIDENT RESPONDER [facility] Comment: . Specimen Anatomical Collection Method Collection Time Receive d Time (Source) Location / / Volume Laterality Blood (Blood, 03/05/2018 8:47 AM 03/05/20 18 Venous) CYBER DEFENSE INCIDENT RESPONDER 12:19 PM CYBER DEFENSE INCIDENT RESPONDER Silvana Velarde APRN, CNP LAB BLOOD ORDERABLES Performing Organization Address City/[facility]/ZIP Code Phon e Number [facility] [address] [place] [phone] ESR-Sed rate (03/05/2018 8:47 AM CYBER DEFENSE INCIDENT RESPONDER) athologist Signature Sed Rate 10 0 - 29 03/05/2018 [facility] mm/hr 1:42 PM CYBER DEFENSE INCIDENT RESPONDER [facility] Specimen Anatomical Collection Method Collection Time Receive d Time (Source) Location / / Volume Laterality Blood (Blood, 03/05/2018 8:47 AM 03/05/20 18 Venous) CYBER DEFENSE INCIDENT RESPONDER 12:17 PM CYBER DEFENSE INCIDENT RESPONDER Silvana Velarde APRN, CNP LAB BLOOD ORDERABLES Performing Organization Address City/[facility] Phon e Number [facility] [address] [place] [phone] (ABNORMAL) CBC Branch Off w/Diff (03/05/2018 8:47 AM CYBER DEFENSE INCIDENT RESPONDER) [facility] gist Method Time Signature WBC 7.3 3.5 - 10.5 03/05/2018 [facility] K/uL 9:39 AM [employer] DEFENSE INCIDENT RESPONDER [place] RBC 4.17 3.90 - 03/05/2018 [facility] 5.00 M/uL 9:39 AM [employer]BER DEFENSE INCIDENT RESPONDER [place] Hemoglobin 13.8 12.0 - 03/05/2018 [facility] [place] 15.5 g/dL 9:39 AM CYBER DEFENSE INCIDENT RESPONDER [place]ALLS Hematocrit 39.5 35.0 - 03/05/2018 [facility] 44.0 % 9:39 AM CYBER DEFENSE INCIDENT RESPONDER [place] Platelets 272 150 - 450 03/05/2018 [facility] K/uL 9:39 AM CYBER DEFENSE INCIDENT RESPONDER [place] MCV 94.7 81.6 - 03/05/2018 [facility] [place] 98.3 fL 9:39 AM CYBER DEFENSE INCIDENT RESPONDER [place]S MCH 33.1 (H) 26.0 - 03/05/2018 [facility] 32.0 pg 9:39 AM CYBER DEFENSE INCIDENT RESPONDER [place] MCHC 34.9 32.0 - 03/05/2018 [facility] 36.0 g/dL 9:39 AM [employer] DEFENSE INCIDENT RESPONDER [place] RDW 13.3 11.9 - 03/05/2018 [facility] [place] 15.5 % 9:39 AM CY[employer] DEFENSE INCIDENT RESPONDER [place] Lymphocytes % 28.0 18.0 - 03/05/2018 [facility] 45.0 % 9:39 AM [employer] DEF[employer] INCIDENT RESPONDER [place] Mid-size Cells 8.1 3.3 - 10.1 03/05/2018 [facility] % 9:39 AM [employer] DEFENSE INCIDENT RESPONDER [place] Granulocytes/Adam 63.9 45.8 - 03/05/2018 [facility] trophils 73.7 % 9:39 AM [employer] DEFENSE INCIDENT RESPONDER [place] Lymphocytes 2.0 0.9 - 2.9 03/05/2018 [facility] Absolute K/uL 9:39 AM [employer] DEFENSE INCIDENT RESPONDER [place]S MIDS Absolute 0.6 0.2 - 0.8 03/05/2018 [facility] K/uL 9:39 AM CYBER DEFENSE INCIDENT RESPONDER [place]ALLS Granulocytes/Adam 4.7 2.1 - 8.7 03/05/2018 [facility] trophils K/uL 9:39 AM CYBER DEFENSE INCIDENT RESPONDER [place] Absolute Specimen Anatomical Collection Method Collection Time Receive d Time (Source) Location / / Volume Laterality Blood (Blood, 03/05/2018 8:47 AM 03/05/20 18 8:47 Venous) CYBER DEFENSE INCIDENT RESPONDER AM CYBER DEFENSE INCIDENT RESPONDER Silvana Velarde APRN, [employer] WAREHOUSE DEVELOPER LAB BLOOD ORDERABLES Performing Organization Address City/State/ZIP Code Phon e Number [facility] [place] [address] [place] [phone] documented in this encounter Visit Diagnoses Diagnosis Polyarticular arthritis - Primary Unspecified polyarthropathy or polyarthr itis, site unspecified Paresthesia of both hands documented in this encounter Care Teams Front Desk Person Relationship Specialty Start Date End Date Silvana Velarde APRN, [employer] WAREHOUSE DEVELOPER PCP - General 11/27/17 12/29/19 [address] [place] [id number] documented as of this encounter
--- OUTSIDE RECORDS SUMMARY | 2022-01-29 10:57 | XMS_ITS | Encounter Summary ---
:1970 Author Organization [facility] Address [address] [place] [address] Care Team Providers Name Role Phone None, Pcp Primary Care Provider Unavailable Reason for Visit Reason Comments Med Refill tylenol with markienmimi Encounter Details Date Type Department Care Team Description 03/30/2020 Office Visit Evgeny Green, Arthralgia of right ankle (P rimary Dx); [address] Pes planus of both feet; [place] [address] Bilateral carpal tunnel syndrome; [id number] [place] Elevated blood pressure read ing; [phone] Impaired fasting glucose; [phone] Tobacco use (Work) Social History Tobacco Use Types Packs/Day Years Used Date Current Every Day Smoker Cigarettes 0.5 Smokeless Tobacco: Never Used Alcohol Use Standard Drinks/Week Comments Yes 0 (1 standard drink = 0.6 oz pure alcoho l) Sex Assigned at Date Recorded Not on file documented as of this encounter Last Filed Vital Signs Vital Sign Reading Time Taken Comments Blood Pressure 144/80 03/30/2020 1:42 PM NICK SETTER Pulse 84 03/30/2020 1:42 PM NICK SETTER Temperature 37.1 ??C (98.8 ??F) 03/30/2020 1:42 PM NICK SETTER Respiratory Rate 16 03/30/2020 1:42 PM NICK SETTER Oxygen Saturation 96% 03/30/2020 1:42 PM NICK SETTER Inhaled Oxygen Concentration - - Weight 98.4 kg (217 lb) 03/30/2020 1:42 PM NICK SETTER Height - - Body Mass Index 39.69 06/23/2019 2:07 PM NICK SETTER documented in this encounter Patient Instructions Patient InstructionsEvgeny Vann MD - 03/30/2020 1:40 PM CST Search for carpal tunnel brace for both of your wrists on amazon to hold wrist in a neutral position at night. If not improving after a few months we can try steroid injection or refer you to hand surgeon. Return to clinic when we have lab (tomorrow) fasting for blood tests. Check your blood pressure after sitting comfortably and quietly (no talking) for 5 minutes at home at least daily for the next 2 weeks. Return to clinic with a log of your blood pressure values. SETTER documented in this encounter Progress Notes Evgeny Vann MD - 03/30/2020 1:40 PM CST Estab Patient Visit Subjective Patient ID: Candy Grullon is a 49 y.o. female. Chief Complaint Patient presents with ??? Med Refill tylenol with codiene [facility] Patient requesting tylenol with codeine prescription. The medication is helpful for aches and pains in her joints as well as helps with her sleep which is difficult at times due to joint pains. She uses the medication infrequently, it looks like last filled June 2019. Her joint pains include both hips (points to front sides of bilateral hips), both knees in the front, the right posterior heel/ankle,and both elbows. She says many years ago she sustained trauma and thinks she fractured her right ankle. She also gets tingling at night in her bilateral 2nd, 3rd and 4th fingers. That bothers her mostly at night. Has never tried wrist splints. This and her right ankle pain are the issues that keep her up at night. She has tried aleve, ibuprofen and tylenol but it does not help. She tried soaking feet in warm epsom salt bath which did not help. She did PT at [facility] in the past but it did not help (she describes they applied stimulators to her ankle that did not help). She works for [employer]. 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 Does a lot of lifting. Her recently hada heart attack and was diagnosed with cancer (and is thankfully doing well) but she has been stressed out. She checks her BP at home with a wrist cuff but usually moves her arm around while it is getting a reading. 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 Now she has normal hours. Working on cutting down smoking down from 2 packs per day to less than half pack per day. Quit date goal is April. Does not need anything to help at this time. The following portions of the patient's chart were reviewed in this encounter and updated as appropriate: Tobacco Allergies Meds Problems Med Hx Surg Hx Fam Hx Soc Hx ROS ROS done as noted in HPI Objective Visit Vitals BP 144/80 (BP Location: Left arm, Patient Position: Sitting) Pulse 84 Temp 37.1 ??C (98.8 ??F) (Temporal) Resp 16 Physical Exam GEN: well appearing, no acute distress, vital signs reviewed DERM: no rash on exposed skin; there is a raw blister on mid portion of right posterior ankle MSK: negative tinel's of wrist bilaterally. Positive Phalen's test. Right posterior ankle tendernessat Achilles insertion point on calcaneus. Assessment/Plan Diagnosis Plan 1. Arthralgia of right ankle Diclofenac Sodium 1 % gel 2. Pes planus of both feet 3. Bilateral carpal tunnel syndrome 4. Elevated blood pressure reading Basic metabolic panel 5. Impaired fasting glucose Hemoglobin A1c Lipid panel Multiple issues addressed today: Patient with chronic joint issues. She has been seen by Rheumatology at [facility] in the past and negative for connective tissue disease or inflammatory arthropathy. I reviewed imaging reports from 2019: Nuclear med joint scan, MRI elbow, XR ankles bilateral and XR hands bilateral. Relevant findings include mild bilateral pes planus and hindfoot valgus and evidence of osteoarthritis of different joints. She had hip bursa injection in the past but did not find it helpful. She has OA and bursitis of different joints as well as medial and lateral epicondylitis with her main pain in her right posterior ankle which likely represents a chronic achilles enthesopathy vs recurring calcaneal bursitis. Rx for voltaren gel ordered. I explained I do not prescribe tylenol with codeine. She has done PT in the past for the right ankle and did not find it helpful though she describes therapies done but no exercises. She may benefit from strengthening PT of right ankle. Hold off on referral for now. Could consider a Aircast heel brace, consider new shoes. Could consider podiatry referral for pes planus and achilles tendinopathy IFG - lipid panel Elevated BP - Has been intermittently high in the past. Encouraged continued tobacco cessation plan (quit date set at April 23). BMP and check Bps at home, RTC in 2 weeks Carpal Tunnel syndrome - wrist braces recommended. Higher risk (mother hx of carpal tunnel and her personal history of impaired fasting glucose, she had recent thyroid testing 2 years ago so don't think we need to recheck that). No problem-specific Assessment & Plan notes found for this encounter. Patient Instructions Search for carpal tunnel brace for both of your wrists on amazon to hold wrist in a neutral position at night. If not improving after a few months we can try steroid injection or refer you to hand surgeon. Return to clinic when we have lab (tomorrow) fasting for blood tests. Check your blood pressure after sitting comfortably and quietly (no talking) for 5 minutes at home at least daily for the next 2 weeks. Return to clinic with a log of your blood pressure values. Return in about 2 weeks (around 04/13/2020) for Recheck. Note created using voice dictation software. SETTER documented in this encounter Plan of Treatment Not on filedocumented as of this encounter Results (ABNORMAL) Basic metabolic panel (03/31/2020 8:35 AM NICK SETTER) P athologist Signature Sodium 140 135 - 145 03/31/2020 [facility] [place] mmol/L 9:21 AM NICK SETTER [place] Potassium 4.3 3.5 - 5.1 03/31/2020 [facility] [place] mmol/L 9:21 AM NICK SETTER [place] Comment: . Chloride 101 98 - 107 mmol/L 03/31/2020 9:21 AM NICK SETTER [facility] [place] Comment: . CO2 28 22 - 29 mmol/L 03/31/2020 9:21 AM NICK SETTER [facility] [place] Comment: . Creatinine 0.7 0.4 - 1.2 mg/dL 03/31/2020 9:21 AM NICK SETTER [facility] [place] Comment: . BUN 13 5 - 25 mg/dL 03/31/2020 9:21 AM NICK SETTER [facility] [place] Comment: . Glucose 103 (H) 70 - 100 mg/dL 03/31/2020 9:21 AM NICK SETTER [facility] [place] Calcium, Total,S 9.3 8.4 - 10.2 mg/dL 03/31/2020 9:21 AM NICK SETTER [facility] [place] Comment: . Specimen Anatomical Collection Method Collection Time Receive d Time (Source) Location / / Volume Laterality Blood (Blood, 03/31/2020 8:35 AM 03/31/20 20 8:35 Venous) NICK SETTER AM NICK SETTER Evgeny Vann MD LAB BLOOD ORDERABLES Performing Organization Address City/State/ZIP Code Phon e Number [facility] [place] [address] [place] [address] (ABNORMAL) Lipid panel (03/31/2020 8:35 AM NICK SETTER) athologist Signature Cholesterol 187 0 - 199 03/31/2020 [facility] mg/dL 2:35 PM [facility] Comment: Recommended by National Cholesterol Education Program (ATP III) -------- Cholesterol Ranges -------- <200 ?Desirable 200-239 ? Borderline high >=240 ? High Triglycerides 48 0 - 149 mg/dL 03/31/2020 2:35 PM [facility] Comment: -------- TRIG Ranges -------- <150 ?Normal 150-199 ? Borderline high 200-499 ? High >=500 ? Very high HDL 68 40 - 250 mg/dL 03/31/2020 2:35 PM [facility] Comment: -------- HDL Ranges -------- <40 ?Low 40-59 ?Normal >=60 ? Optimal LDL Calculated 109 (H) 0 - 99 mg/dL 03/31/2020 2:35 PM [facility] Comment: -------- LDL Ranges -------- <100 ? Optimal 100-129 ?Near optimal/above op timal 130-159 ?Borderline high 160-189 ?High >=190 ?Very high Fasting? Yes 03/31/2020 8:35 AM NICK SETTER [facility] Specimen Anatomical Collection Method Collection Time Receive d Time (Source) Location / / Volume Laterality Blood (Blood, 03/31/2020 8:35 AM 03/31/20 20 1:09 Venous) NICK SETTER PM NICK SETTER Evgeny Vann MD LAB BLOOD ORDERABLES Performing Organization Address [facility] Phon e Number [facility] [address] [place] [address] Hemoglobin A1c (03/31/2020 8:35 AM NICK SETTER) P athologist Signature Hemoglobin A1C 5.4 4.0 - 5.6 03/31/2020 [facility] % A1C 1:51 PM [facility] Comment: Reference Range 4.0-5.6% is for [...] 03/31/2020 8:35 AM 03/31/20 20 1:09 Venous) NICK SETTER PM NICK SETTER Evgeny Vann MD LAB BLOOD ORDERABLES Performing Organization Address City/[facility]/ZIP Code Phon e Number [facility] [address] [place] [address] documented in this encounter Visit Diagnoses Diagnosis Arthralgia of right ankle - Primary Pes planus of both feet Bilateral carpal tunnel syndrome Carpal tunnel syndrome Elevated blood pressure reading Elevated blood pressure reading without diagnosis of hypertension Impaired fasting glucose Tobacco use documented in this encounter Care Teams Parts Cataloguer Relationship Specialty Start Date End Date None, Pcp PCP - General Supervisor Salvage 03/30/20 12/19/20 [address] [place] [address] documented as of this encounter
--- OUTSIDE RECORDS SUMMARY | 2022-01-29 10:57 | XMS_ITS | Encounter Summary ---
:1970 Author Organization [facility] Address [address] [place] [address] Care Team Providers Name Role Phone Silvana Velarde APRN, CNP Primary Care Provider [phone] Reason for Referral Consultation (Routine) - Canceled Specialty Diagnoses / Procedures Referred By Contact Refer red To Contact Rheumatology Diagnoses Polyarticular arthritis Silvana Velarde, [place] - Referrals KEEGAN HUNT [address] [facility] [address] [place] [address] [place] [address] Fax: Referral ID Status Reason Start Expiration Visits Visits Date Date Requested Authorized [id number] Canceled Specialty 09/07/2018 1 1 Services 8 Required Scheduling Instructions Please schedule the patient at [facility] in [place]. RONI MAKER Encounter Details Date Type Department Care Team Description 03/11/2018 [place] Polyarticular arthritis [address] M, KEEGAN HUNT (Primary Dx) [place], [place] [address] [facility] [address] [place] [address] Social History Tobacco Use Types Packs/Day Years Used Date Current Every Day Smoker Smokeless Tobacco: Never Used Alcohol Use Standard Drinks/Week Comments Yes 0 (1 standard drink = 0.6 oz pure alcoho l) Sex Assigned at Date Recorded Not on file documented as of this encounter Plan of Treatment Scheduled Referrals Name Type Priority Associated Diagnoses Order S chedule Ambulatory referral Outpatient Routine Polyarticular Ordered : to Rheumatology Referral arthritis 03/11/2018 documented as of this encounter Visit Diagnoses Diagnosis Polyarticular arthritis - Primary Unspecified polyarthropathy or polyarthr itis, site unspecified documented in this encounter Care Teams Chiropractor Sole Practitioner Relationship Specialty Start Date End Date Silvana Velarde, FLOUR MIXER, HAY STACKER PCP - General 11/27/17 12/29/19 100 [facility] [place] [address] documented as of this encounter
--- OUTSIDE RECORDS SUMMARY | 2022-01-29 10:57 | XMS_ITS | Encounter Summary ---
:1970 Author Organization [facility] Address [address] [place] [address] Care Team Providers Name Role Phone Silvana Velarde APRN, KEEGAN Primary Care Provider [phone] Reason for Visit Reason Onset Date Comments BODY ACHES CAN'T SLEEP 02/28/2018 Encounter Details Date Type Department Care Team Description 02/28/2018 [place], BODY ACHES CAN'T SLEEP [address] KEEGAN [place]T [place] [address] [address] [facility] [address] [phone] [place], [place] [address] Social History Tobacco Use Types Packs/Day Years Used Date Never Assessed Sex Assigned at Date Recorded Not on file documented as of this encounter Miscellaneous Notes Telephone Encounter - Lois Wilkinson LPN - 03/01/2018 8:24 AM CST She will see you on Sunday. ET CLEANING TECHNICIAN Telephone Encounter - Silvana Velarde APRN, CNP - 02/28/2018 5:15 PM CARPET CLEANING TECHNICIAN The patient would need to be seen for narcotic medication. Marcell, Magnus ET CLEANING TECHNICIAN Telephone Encounter - Leonie Chatterjee RN - 02/28/2018 4:02 PM CST Please advise. ET CLEANING TECHNICIAN Telephone Encounter - Talya Martinez - 02/28/2018 12:43 PM CST Pt called and made an appt for Sunday03/05/18 for body aches. Pt is also having a hard time getting any sleep and is wondering if she can get a Rx of Tylenol with codeine to help her sleep until her appt. Send Rx to [facility]. Please return call to Pt to advise. ET CLEANING TECHNICIAN documented in this encounter Plan of Treatment Not on filedocumented as of this encounter Visit Diagnoses Not on filedocumented in this encounter Care Teams Vegetable Picker Relationship Specialty Start Date End Date Silvana Velarde APRN, STORAGE CONSULTANT PCP - General 11/27/17 12/29/[address] [place], [place] [address] [address] documented as of this encounter
--- OUTSIDE RECORDS SUMMARY | 2022-01-29 10:57 | XMS_ITS | Encounter Summary ---
:1970 Author Organization [facility] Address [address] [place] [address] Care Team Providers Name Role Phone Silvana Velarde [place] HUNT, AGENT PRODUCER Primary Care Provider [phone] Reason for Visit Reason Comments Sore Throat Started Sunday Morning Cough Encounter Details Date Type Department Care Team Description 06/23/2019 Office Visit Shawna Quintanilla Bronchitis (Primary Dx) [address] MD [place], [place] [address] [facility] [address] [place] [address] Social History Tobacco Use Types Packs/Day Years Used Date Current Every Day Smoker Smokeless Tobacco: Never Used Alcohol Use Standard Drinks/Week Comments Yes 0 (1 standard drink = 0.6 oz pure alcoho l) Sex Assigned at Date Recorded Not on file documented as of this encounter Last Filed Vital Signs Vital Sign Reading Time Taken Comments Blood Pressure 150/88 06/23/2019 2:07 PM PRINTED CIRCUIT LAYOUT TAPER Pulse 92 06/23/2019 2:07 PM PRINTED CIRCUIT LAYOUT TAPER Temperature 37.3 ??C (99.1 ??F) 06/23/2019 2:07 PM PRINTED CIRCUIT LAYOUT TAPER Respiratory Rate 16 06/23/2019 2:07 PM PRINTED CIRCUIT LAYOUT TAPER Oxygen Saturation - - Inhaled Oxygen Concentration - - Weight 100 kg (220 lb 14.4 oz) 06/23/2019 2:07 PM PRINTED CIRCUIT LAYOUT TAPER Height 157.5 cm (5' 2) 06/23/2019 2:07 PM PRINTED CIRCUIT LAYOUT TAPER Body Mass Index 40.4 06/23/2019 2:07 PM PRINTED CIRCUIT LAYOUT TAPER documented in this encounter Progress Notes Shawna Waite MD - 06/23/2019 2:00 PM CST Estab Patient Visit Subjective Patient ID: Candy Grullon is a 48 y.o. female. HPI the patient is here today because she has been not feeling well for about 4 to 5 days. It started with a cough and a little bit of a sore throat with a low-grade temp and now she is starting to come in with a more of a productive cough there was little yellowish tinge not too bad. She is trying to get better because her will be going in for thyroid cancer surgery in the next week or 2 down at [facility] and he has had just a whole series of medical issues in the last several months. 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 She has had no significant fever just low-grade fever minimal headache no ear pain no significant sinus discomfort comes is this ongoing slight sore throat keeping food and fluids down okay no nausea no throwing up no significant muscle aches or pains but the cough is gotten little harsher and she is little concerned because she is trying to quit smoking. Review of Systems Objective Physical Exam she is alert she appears a little bit under the weather her blood pressure is [id number] pulse is 92 her temp is 99.1 Ears are clear Conjunctiva clear Throat actually fairly normal may be just a little subtle mild pharyngeal erythema Neck no adenopathy Lungs are fairly clear however at both lower bases she has a little bit of rhonchi with cough without wheeze Cardiac is regular rate and rhythm with heart murmur Assessment/Plan Diagnoses and all orders for this visit: Bronchitis - azithromycin (ZITHROMAX) 250 MG tablet; Take 2 tabs (500 mg) by mouth today, than 1 daily for 4 days. - guaiFENesin-codeine (ROBITUSSIN-AC) 100-10 MG/5ML liquid; Take 5-10 mL by mouth every 4 (four) hours if needed for cough Assessment Bronchitis concern for bacterial process plans a Z-Luis use as directed Robitussin with codeine was given for cough recheck if does not improve or gets worse. TED CIRCUIT LAYOUT TAPER documented in this encounter Plan of Treatment Not on filedocumented as of this encounter Visit Diagnoses Diagnosis Bronchitis - Primary Bronchitis, not specified as acute or ch ronic documented in this encounter Care Teams Local Tanker Truck Driver Relationship Specialty Start Date End Date Silvana Velarde, RETAIL INTERIOR DESIGNER, AGENT PRODUCER PCP - General 11/27/17 12/29/19 [address] [facility] [place] [address] documented as of this encounter
--- OUTSIDE RECORDS SUMMARY | 2022-01-29 10:57 | XMS_ITS | Clinical Summary ---
:1970 Author Organization [facility] Address [address] [place] [address] Care Team Providers Name Role Phone Evgeny Vann MD Primary Care Provider Allergies Active Allergy Reactions Severity Noted Date Comments Meperidine Oxycodone-Acetaminophen Medications Medication Sig Dispensed Refills Start Date End Date Status acetaminophen-codeine May take 1-2 20 tablet 1 08/02/2020 Active (TYLENOL/CODEINE #3) every 6 hours if 300-30 MG per needed for acute tabletIndications: headache Acute nonintractable headache, unspecified headache type Dextromethorphan-guaiFE Take 5-10 mL by 1 Bottle 0 10/14/2020 Active Nesin 10-200 MG/5ML mouth every 4 liquidIndications: (four) hours if Bronchitis needed (cough) albuterol HFA (Ventolin Inhale 2 puffs 6.7 g 0 10/14/2020 Active HFA) 108 (90 Base) every 4 (four) MCG/ACT hours if needed inhalerIndications: for wheezing or Bronchitis shortness of breath Active Problems Problem Noted Date Tobacco use 03/30/2020 Impaired fasting glucose 03/30/2020 Bilateral carpal tunnel syndrome 03/30/2020 Elevated blood pressure reading 03/30/2020 Flat foot 03/30/2020 Encounters Date Type Specialty Care Team Description 12/01/2021 Telephone Family Medicine Evgeny Vann MD Col onoscopy from Last 3 Months Immunizations Name Administration Dates Next Due COVID-19, mRNA, LNP-S, PF, 30mcg/0.3mL 08/13/2020, 1 dose Pfizer Hep B, Unspecified 03/22/1995, 09/27/1994, 08/23/1994 Hepatitis B 03/22/1995, 09/27/1994, 08/23/1994 Influenza TIV (IM) 02/17/1997 Influenza, Unspecified 02/17/1997 MMR 08/23/1994 Measles 07/22/1969 TD Preservative Free 08/23/1994 Td, Unspecified 08/23/1994 Tdap 03/06/2012 Family History Medical History Relation Comments Anxiety disorder Brother Bipolar disorder Brother Depression Brother ALS Father Heart disease Maternal Grandfather Lung cancer Maternal Grandfather Dementia Maternal Grandmother Anxiety disorder Mother Bipolar disorder Mother Depression Mother Parkinsonism Mother Diverticulitis Paternal Grandmother Anxiety disorder Sister Bipolar disorder Sister Depression Sister Lupus Sister Relation Status Comments Brother Alive Daughter 1 Alive Daughter 2 Alive Daughter 3 Alive Father Maternal Grandfather Maternal Grandmother Mother Alive Paternal Grandmother Sister Alive Social History Tobacco Use Types Packs/Day Years [...] Mass Index 37.5 10/14/2020 10:13 AM CDT Plan of Treatment Health Maintenance Due Date Last Done Comments CT Colonography 1970 Colonoscopy 1970 Colorectal Cancer Screening 1970 FIT-DNA 1970 Pap Smear 1970 Sigmoidoscopy 1970 iFOBT 1968 Zoster Vaccines (1 of 2) 2018 COVID-19 Vaccine (3 - Booster 01/13/2021 08/13/2020, for Pfizer series) 07/23/2020 Mammogram 08/10/2021 08/10/2020 HPV Vaccines Aged Out No longer eligib le based on patient's age to complete this to pic Pneumococcal Vaccine: Aged Out No longer eligible based Pediatrics (0 to 5 Years) and on patient's age to At-Risk Patients (6 to 64 comple te this topic Years) Insurance Payer Benefit Plan / Subscriber ID Effective Dates Phone Addre ss Type Group PREFERRED ONE PREFERRED ONE [id number] 2020-Present [address] [place] [address] Supervisor Of Engines Relationship Specialty Start Date End Date Evgeny Vann MD PCP - General 12/20/[address] [place] [address]
--- OUTSIDE RECORDS SUMMARY | 2022-01-29 10:57 | XMS_ITS | Encounter Summary ---
:1970 Author Organization [facility] Address [address] [place] [address] Care Team Providers Name Role Phone Silvana Velarde Silva HUNT, NATURAL RESOURCE TECHNICIAN Primary Care Provider [phone] Encounter Details Date Type Department Care Team Description 03/05/2018 Lab Lisa Mcdaniel Polyarticular arthritis; [address] Paresthesia of both hands LENA Kiser 550 09 Social History Tobacco [...] Name Priority Date/Time Associated Diagnosis Comme nts GLOMERULAR FILTRATION Routine 03/05/2018 8:47 Polyarticular Re sults for this RATE AM [facility] arthritis procedure are in Paresthesia of both the resu lts hands section. LYME DISEASE SEROLOGY Routine 03/05/2018 8:47 Polyarticular Re sults for this AM [facility] arthritis procedure are i n the results section. THYROID FUNCTION Routine 03/05/2018 8:47 Paresthesia of both R esults for this CASCADE AM [facility] hands procedure are i n the results section. CBC BRANCH OFFICE Routine 03/05/2018 8:47 Polyarticular Result s for this W/DIFF AM [facility] arthritis procedure are in Paresthesia of both the resu lts hands section. CYCLIC CITRULLINATED Routine 03/05/2018 8:47 Polyarticular Res ults for this PEPTIDE ANITBODY AM [facility] arthritis procedure a re in the results section. SEDIMENTATION RATE, Routine 03/05/2018 8:47 Polyarticular Resu lts for this AUTOMATED AM [facility] arthritis procedure are i n the results section. RHEUMATOID FACTOR Routine 03/05/2018 8:47 Polyarticular Result s for this AM [facility] arthritis procedure are i n the results section. C-REACTIVE PROTEIN Routine 03/05/2018 8:47 Polyarticular Resul ts for this AM [facility] arthritis procedure are i n the results section. BREN Routine 03/05/2018 8:47 Polyarticular Results for this AM [facility] arthritis procedure are i n the results section. URIC ACID Routine 03/05/2018 8:47 Polyarticular Results for this AM [facility] arthritis procedure are i n the results section. VITAMIN B12 Routine 03/05/2018 8:47 Paresthesia of both Resul ts for this AM [facility] hands procedure are i n the results section. BASIC METABOLIC PANEL Routine 03/05/2018 8:47 Polyarticular Re sults for this AM [facility] arthritis procedure are in Paresthesia of both the resu lts hands section. documented in this encounter Results Glomerular filtration rate (GFR) (03/05/2018 8:47 AM [facility]) P athologist Signature GFR >60 03/05/2018 [facility] 9:39 AM [facility] >60 03/05/2018 [facility] Austrian GFR 9:39 AM [facility] Comment: GFR calculated from serum creatinine v alue Chronic Kidney Disease less than 60 mL/m in/1.73 m2 Kidney Failure less than 15 mL/min/1.73 m2 Note: effective 09/05/06 IDMS-Traceable MDRD Study Equation used. Specimen Anatomical Collection Method Collection Time Receive d Time (Source) Location / / Volume Laterality 03/05/2018 8:47 AM 8 8:47 [facility] Silvana Velarde APRN, NATURAL RESOURCE TECHNICIAN LAB BLOOD ORDERABLES Performing Organization Address City/State/ZIP Code Phon e Number [facility] [address] [place] [address] (ABNORMAL) CBC Branch Off w/Diff (03/05/2018 8:47 AM [facility]) Patholo gist Method Time Signature WBC 7.3 3.5 - 10.5 03/05/2018 [facility] K/uL 9:39 AM [facility] [place] [place] RBC 4.17 3.90 - 03/05/2018 [facility] 5.00 M/uL 9:39 AM [facility] [place] [place] Hemoglobin 13.8 12.0 - 03/05/2018 [facility] 15.5 g/dL 9:39 AM [facility] [place] [place] Hematocrit 39.5 35.0 - 03/05/2018 [facility] 44.0 % 9:39 AM [facility] [place] [place] Platelets 272 150 - 450 03/05/2018 [facility] [place] K/uL 9:39 AM [place] [place] MCV 94.7 81.6 - 03/05/2018 [facility] 98.3 fL 9:39 AM [facility] [place] [place] MCH 33.1 (H) 26.0 - 03/05/2018 [facility] 32.0 pg 9:39 AM [facility] [place] [place] MCHC 34.9 32.0 - 03/05/2018 [facility] 36.0 g/dL 9:39 AM [facility] [place] [place] RDW 13.3 11.9 - 03/05/2018 [facility] 15.5 % 9:39 AM [facility] [place] [place] Lymphocytes % 28.0 18.0 - 03/05/2018 [facility] [place] 45.0 % 9:39 AM [facility] [place] [place] Mid-size Cells 8.1 3.3 - 10.1 03/05/2018 [facility] [place] % 9:39 AM [facility] [place] Granulocytes/Adam 63.9 45.8 - 03/05/2018 [facility] [place] trophils 73.7 % 9:39 AM [facility] [place] [place] Lymphocytes 2.0 0.9 - 2.9 03/05/2018 [facility] [place] Absolute K/uL 9:39 AM [facility] [place] [place] MIDS Absolute 0.6 0.2 - 0.8 03/05/2018 [facility] [place] K/uL 9:39 AM [facility] [place] [place] Granulocytes/Adam 4.7 2.1 - 8.7 03/05/2018 [facility] [place] trophils K/uL 9:39 AM [facility] [place] [place] Absolute Specimen Anatomical Collection Method Collection Time Receive d Time (Source) Location / / Volume Laterality Blood (Blood, 03/05/2018 8:47 AM 03/05/20 18 8:47 Venous) [facility] Silvana Velarde APRN, NATURAL RESOURCE TECHNICIAN LAB BLOOD ORDERABLES Performing Organization Address City/State/ZIP Code Phon e Number [facility] [place] [address] [place] [address] ESR-Sed rate (03/05/2018 8:47 AM [facility]) P athologist Signature Sed Rate 10 0 - 29 03/05/2018 [facility] mm/hr 1:42 PM [facility] Specimen Anatomical Collection Method Collection Time Receive d Time (Source) Location / / Volume Laterality Blood (Blood, 03/05/2018 8:47 AM 03/05/20 18 Venous) [facility] 12:17 PM [facility] Silvana Velarde APRN, CNP LAB BLOOD ORDERABLES Performing Organization Address [facility] Phon e Number [facility] [address] [place] [phone] C-reactive protein (03/05/2018 8:47 AM [facility]) athologist Signature CRP 6.7 0.0 - 9.9 03/05/2018 [facility] mg/L 1:42 PM [facility] Comment: . Specimen Anatomical Collection Method Collection Time Receive d Time (Source) Location / / Volume Laterality Blood (Blood, 03/05/2018 8:47 AM 03/05/20 18 Venous) [facility] 12:19 PM [facility] Silvana Velarde APRN, CNP LAB BLOOD ORDERABLES Performing Organization Address [facility] Phon e Number [facility] [address] [place] [address] Rheumatoid factor (03/05/2018 8:47 AM [facility]) athologist Signature Rheumatoid 6 1 - 11 03/05/2018 [facility] Factor IU/mL 1:25 PM [facility] Specimen Anatomical Collection Method Collection Time Receive d Time (Source) Location / / Volume Laterality Blood (Blood, 03/05/2018 8:47 AM 03/05/20 18 Venous) [facility] 12:19 PM [facility] Silvana Velarde APRN, CNP LAB BLOOD ORDERABLES Performing Organization Address [facility] Phon e Number [facility] [address] [place] [address] Lyme Disease Serology (03/05/2018 8:47 AM [facility]) [facility] Method Time Signature Lyme Disease Negative Negative 03/06/2018 [facility] Serology 1:00 PM [facility] Comment: No evidence of antibodies to B. burgdorf darrion detected. False negative results may occur in rece ntly infected patients (<=2 weeks) due to low or undet ectable antibody levels to B. burgdorferi. If recent expo sure is suspected, a second sample should be collected and tested in 2-4 weeks. Test [facility]: [facility] [place] [id number] Specimen Anatomical Collection Method Collection Time Receive d Time (Source) Location / / Volume Laterality Blood (Blood, 03/05/2018 8:47 AM 03/05/20 18 1:31 Venous) [facility] PM [facility] Silvana Velarde APRN, CNP LAB BLOOD ORDERABLES Performing Organization Address City/State/ZIP Code Phon e Number [facility] see result attachment for specific address BREN (03/05/2018 8:47 AM [facility]) athologist Signature BREN 0.2 <=1.0 03/06/2018 [facility] (Negative) 2:01 PM [facility] U Comment: Test [facility]formed [facility]: [facility] [place] [id number] Specimen Anatomical Collection Method Collection Time Receive d Time (Source) Location / / Volume Laterality Blood (Blood, 03/05/2018 8:47 AM 03/05/20 18 1:31 Venous) [facility] PM [facility] Silvana Velarde APRN, CNP LAB BLOOD ORDERABLES Performing Organization Address City/[facility]/ZIP Code Phon e Number [facility] see result attachment for specific address Cyclic citrul peptide antibody, IgG (03/05/2018 8:47 AM [facility]) athologist [facility] Cyclic <15.6 <20.0 03/06/2018 [facility] Citrullin (Negative) 2:01 PM [facility] Peptide Ab U Comment: Test [facility]formed [facility] [address] [place] [address] Specimen Anatomical Collection Method Collection Time Receive d Time (Source) Location / / Volume Laterality Blood (Blood, 03/05/2018 8:47 AM 03/05/20 18 1:31 Venous) [facility] PM [facility] Silvana Velarde APRN, CNP LAB BLOOD ORDERABLES Performing Organization Address City/State/ZIP Code Phon e Number [facility] see result attachment for specific address Vitamin B12 (03/05/2018 8:47 AM [facility]) athologist Signature Vitamin B-12 [phone] 873 03/05/2018 [facility] pg/mL 2:23 PM [facility] Comment: The results from this [...] Blood (Blood, 03/05/2018 8:47 AM 03/05/20 Venous) [facility] 12:19 PM [facility] Silvana Velarde APRN, CNP LAB BLOOD ORDERABLES Performing Organization Address [facility]/ZIP Code Phon e Number [facility] [address] [place], [place] [id number] Thyroid Function [place] (03/05/2018 8:47 AM [facility]) athologist Signature TSH, Sensitive 3.57 0.46 - 03/05/2018 [facility] 4.68 mIU/L 1:50 PM [facility] Comment: The results from this [...] Blood (Blood, 03/05/2018 8:47 AM 03/05/20 Venous) [facility] 12:19 PM [facility] Silvana Velarde APRN, CNP LAB BLOOD ORDERABLES Performing Organization Address City/[facility]/ZIP Code Phon e Number [facility] [address] [place] [address] (ABNORMAL) Uric acid (03/05/2018 8:47 AM [facility]) P athologist Signature Uric Acid 6.3 (H) 2.1 - 6.1 03/05/2018 [facility] mg/dL 2:13 PM [facility] Specimen Anatomical Collection Method Collection Time Receive d Time (Source) Location / / Volume Laterality Blood (Blood, 03/05/2018 8:47 AM 03/05/20 18 Venous) [facility] 12:17 PM [facility] Silvana Velarde APRN, NATURAL RESOURCE TECHNICIAN LAB BLOOD ORDERABLES Performing Organization Address City/State/ZIP Code Phon e Number [facility] [address] [place] [phone] (ABNORMAL) Basic metabolic panel (03/05/2018 8:47 AM [facility]) athologist Signature Sodium 140 135 - 145 03/05/2018 [facility] mmol/L 9:39 AM [facility] Potassium 3.8 3.5 - 5.1 03/05/2018 [facility] mmol/L 9:39 AM [facility] Comment: . Chloride 103 98 - 107 mmol/L 03/05/2018 9:39 AM [facility] Comment: . CO2 26 22 - 29 mmol/L 03/05/2018 9:39 AM [facility] Comment: . Creatinine 0.8 0.4 - 1.2 mg/dL 03/05/2018 9:39 AM [facility] Comment: . BUN 18 5 - 25 mg/dL 03/05/2018 9:39 AM [facility] Comment: . Glucose 102 (H) 70 - 100 mg/dL 03/05/2018 9:39 AM [facility] [place] Calcium, Total,S 9.8 8.4 - 10.2 mg/dL 03/05/2018 9:39 AM [facility] Comment: . Fasting? Yes 03/05/2018 8:55 AM [facility] Specimen Anatomical Collection Method Collection Time Receive d Time (Source) Location / / Volume Laterality Blood (Blood, 03/05/2018 8:47 AM 03/05/20 18 8:47 Venous) [facility] AM [facility] Silvana Velarde APRN, NATURAL RESOURCE TECHNICIAN LAB BLOOD ORDERABLES Performing Organization Address City/State/ZIP Code Phon e Number [facility] LISA MCDANIEL [address] [place] [address] documented in this encounter Visit Diagnoses Diagnosis Polyarticular arthritis Unspecified polyarthropathy or polyarthr itis, site unspecified Paresthesia of both hands documented in this encounter Care Teams Micro Computer Specialist Relationship Specialty Start Date End Date Silvana Velarde APRN, NATURAL RESOURCE TECHNICIAN PCP - General 11/27/17 12/29/[address] [place] [address] LENA LEI [id number] documented as of this encounter
[2022-01-29 11:51] VITALS: BP 176/92; PULSE 63; RESP 18; TEMP 36.1; O2SAT 98
--- NOTE | 2022-01-29 17:13 | ED_ITS ---
HPI - Extremity Injury (Lower) General Chief Complaint: Extremity Pain/Injury, Lower Stated Complaint: R knee pain/injury Time Seen by Provider: 01/29/22 10:04 History of Present Illness HPI Narrative: 51-year-old woman presenting to the emergency department with concern of pain in the right knee. Has been achy in her joints over this last week. Had a number of orthopedic procedures including bilateral Achilles surgeries and osteomyelitis. Has certainly been less mobile lately. With increasing fullness in her right knee the last night also started to note a snapping sensation. Does have some Tylenol 3 available. No fever. No shortness of breath, no chest pain. This sensation in her right knee just started, believe she is standing at the time. No particular twisting motion or injury was noted. Related Data Home Medications Medication Instructions Recorded Confirmed acetaminophen 300 mg-codeine 30 mg 2 tab PO PRN 01/29/22 tablet levofloxacin 750 mg tablet 750 mg PO DAILY 01/29/22 01/29/22 Allergies Allergy/AdvReac Type Severity Reaction Status Date / Time meperidine Allergy Intermediate memory loss Verified 01/29/22 09:52 oxycodone Allergy Intermediate nausea, Verified 01/29/22 09:52 shakes Review of Systems Status of ROS: Reports: 10 or more systems reviewed and unremarkable except as noted in History and below [facility] Medical History Arthritis Bilateral carpal tunnel syndrome Impaired fasting glucose Pes planus Surgical History History of hysterectomy History of left knee surgery History of orthopedic surgery Family History Mother Anxiety disorder Bipolar disorder Depression Parkinsonism Brother Anxiety disorder Bipolar disorder Depression Sister Anxiety disorder Bipolar disorder Depression Lupus nephritis Maternal Grandmother Dementia Maternal Grandfather Heart disease Lung cancer Other ALS (amyotrophic lateral sclerosis) Pericarditis Social History Narrative: . 3 children. Works at [employer]. Current everyday smoker. Alcohol rare. No illicit drug use. Smoking Status: Former smoker What tobacco products do you use: cigarettes Smoking quit date/years: <= 15 years ago Do you use any of these nicotine containing products: None How often do you have a drink containing alcohol: 4 or more times a week Alcohol type: beer How many standard drinks containing alcohol do you have on a typical day: 5 or 6 How often do you have six or more drinks on one occasion: Monthly AUDIT-C Alcohol total score: 8 Non-prescribed substance use: denies use Caffeine: No Are you using contraception or practicing any form of control: Yes (hysterectomy) service: Yes ([place] 97-89) Exam Narrative: Exam Narrative: A pleasant. NAD. Breathing easily. Skin is warm and dry without rash. Renal extremities without difficulty though pain is elicited further with flexion of her right knee. No lower extremity edema. Further exam though the right knee is with normal Ton's no pain or laxity to varus or valgus stressors. There is more fullness in the popliteal fossa of the right knee versus the left. She is sore to palpation generally in the right knee particularly posteriorly. Intact biceps femoris tendons. Negative Homans. Intact Achilles as well. No inflammatory changes in the skin. There is what appears to be a small effusion. She is a little tender to manipulation of the patella but does not demonstrate apprehension. Const: Vital Signs, click to edit/add: Vital Signs - 24 hr 01/29/22 09:48 01/29/22 11:51 Temperature 97.2 F L 97 F L Pulse Rate [Pulse Oximeter] 62 63 Respiratory Rate 18 18 Blood Pressure [Ri ght Upper Arm] 183/81 H 176/92 H Pulse Oximetry 98 98 Oxygen Delivery Me thod Room Air Room Air Documenting provider has reviewed patient's vital signs: yes Course Course Hospital Course: Does not feel she needs any intervention. Vital Signs Vital signs: Initial Vital Signs Temperature 97.2 F L 01/29/22 09:48 Temperature Source Temporal Artery Scan 01/29/22 09:48 Pulse Rate 62 01/29/22 09:48 Respiratory Rate 18 01/29/22 09:48 Blood Pressure 183/81 H 01/29/22 09:48 Blood Pressure Mean 115 01/29/22 09:48 Blood Pressure Position Sitting 01/29/22 09:48 Pulse Oximetry 98 01/29/22 09:48 Oxygen Delivery Method 01/29/22 09:48 Vital Signs Temperature 97.2 F L 01/29/22 09:48 Pulse Rate 62 10/09/22 09:48 Respiratory Rate 18 01/29/22 09:48 Blood Pressure 183/81 H 01/29/22 09:48 Pulse Oximetry 98 01/29/22 09:48 Oxygen Delivery Method 01/29/22 09:48 Temperature 97 F L 01/29/22 11:51 Pulse Rate 63 01/29/22 11:51 Respiratory Rate 18 01/29/22 11:51 Blood Pressure 176/92 H 01/29/22 11:51 Pulse Oximetry 98 01/29/22 11:51 Oxygen Delivery Method 01/29/22 11:51 MDM - Extremity Injury (Lower) MDM Narrative Medical decision making narrative: Given lack of mobility DBT would seem to be a possibility. I do not see evidenc e of infection here. I think Patel's cyst would be highest on my differential is contributing to some of her discomfort. I did order three-view x-ray of the knee reviewed by me appears to be unremar kable. Maintained joint spaces. Radiology over-read notes small joint effusion I would say consistent with exam. Ultrasound of the right lower extremity looking for DVT but in particular Patel's cyst does reveal the latter. Did discuss with the laboratory technologist this result. Radiology confirms 4.7 cm in maximal dimension Is possible there would be some other internal knee derangement to explain this small effusion. I think the fullness though is due to the cyst She is returning to work. Sounds like rather physically demanding job movement and a lot ambulating. Might need to take regular rest. Knee immobilizer will I think will be helpful in the short term as well as helping settle down. Medical Records Attestation: I reviewed the patient's medical records. Discharge Plan Discharge Clinical Impression: Patel's cyst of knee, Knee pain, Joint effusion Patient Disposition: Home w/ Parent or Adult Condition: Stable Additional Instructions: might try alternating ice and heat packs to your knee. Wear the knee immobilizer for comfort over the next 1-2 weeks. If this isn't settling, seems to be worsening, I would follow-up with Sports Medicine or with Orthopedics to consider further treatment/intervention/evaluation with possible next level imaging. You may have more going on than just the Patel's cyst. Prescriptions: No Action acetaminophen-codeine 300-30 mg tablet 2 tab PO PRN levofloxacin 750 mg tablet 750 mg PO DAILY Follow Up/Referrals: Silvana Velarde, GAG WRITER, TASSEL MAKING MACHINE OPERATOR [Primary Care Provider] - Stand Alone Forms: MyHealth Info Instructions
== END 2022-01-29 12:25 | disposition home or self-care (01) ==
PROVIDERS: Emergency Provider Family Medicine; PCP Nurse Practitioner Family
DX: M71.21 Synovial cyst of popliteal space [Baker], right knee (principal)
CPT/HCPCS: 73562; 93971; 99283

== ENCOUNTER 2022-02-10 13:21 | Outpatient (CLI) | payer OTHER, SELFPAY ==
--- OUTSIDE RECORDS SUMMARY | 2022-02-10 13:23 | XMS_ITS | Clinical Summary ---
:1970 Author Organization [employer] [facility] [facility] [place] [address] Care Team Providers Name Role Phone Silvana Velarde RIGGER THIRD Primary Care Provider Unavailable Pcp, No Unavailable [...] 3 m onths post op) 12/07/2021 Travel from Last 3 Months Family History [...] 03/31/20 21 Medical Devices Implanted Type Area Box Hinge And Lock Attacher Device Shelf Model / Identifier Expiration Serial / Lot Date Implant System, Biocomposite Achilles Speedbridge W/Jumpstart Right: [employer] 12/21/2022 [id number] / Implanted: Qty: 1 on 04/04/2021 by Tyshawn Rucker DPM at [facility] / [id number] Suture [place], Biocomposite Swivellock C, Closed Eyelet Le ft: [employer] 04/22/2025 [id number] / Implanted: Qty: 2 on 08/29/2021 by Tyshawn Rucker DPM at [facility] / [id number] Procedures Procedure Name Priority Date/Time Associated Diagnosis [...] Organization Address City/State/ZIP Code Phon e Number [facility] [address] [place] [address] LABORATORY-CENTRAL 2000 LABORATORY PATH TISSUE EXAM (12/19/2021 3:30 PM CDT) Component Value Ref Test Analysis Performed At [facility] gist Range Method Time Signature Case Report Pathology Report ?Case: [id number] ? 12/21/2021 [facility] Authorizing Provider: ??Unkn own, Doctor ?Collected: ? 12/19/2021 1530 ? 3:23 PM HEAL TH Ordering Location: ? [facility] CENTRAL LAB ?Received: ?12/20/2021 0814 ? CDT LILLIAN MAJOR Pathologist: ? Haja Holland ? ENTRAL ? MD [place] ? LABORATORY Specimen: ?Right, calcan eus ? Final BONE, RIGHT CALCANEOUS, EXCISION: 2021 [facility] Electronically Diagnosis 1. Benign bone and fibrous tissue 3:23 [facility] signed by 2. Negative for osteomyelitis CDT LABORATORY-C Haja Holland MD LABORATORY on 022 at 3:23 PM [...] specimens. Additional 12/21/2021 [facility] Information Interpreted at [facility], Central Laboratory - [address], [place] [address] 3:23 PM HEALTH CDT LABORATORY-C ENTRAL LABORATORY Specimen Anatomical Collection Method Collection Time Receive d Time (Source) Location / / Volume Laterality Other (Right) 12/19/2021 3:30 PM 12/21/19 22 8:14 CDT AM CDT Doctor Unknown PATHOLOGY/CYTOLOGY Performing Organization Address City/State/ZIP Code Phon e Number [facility] [employer] [address] [place] [address] LABORATORY-CENTRAL 2000 LABORATORY SCAN-RADIOLOGY REPORT (12/19/2021 12:00 [...] ss Type Group PREFERRED ONE PREFERRED ONE [id number] 2020-Present [address] [place] [address] Advance Directives Latest Code Status on File Code Status Date Activated Date Inactivated Comments Full Code 08/29/2021 9:54 AM 08/29/2021 7:58 PM Code Status Discussion: Reviewed Preferences Full Code 04/04/2021 10:26 AM 04/04/2021 6:33 PM Code Status Discussion: Reviewed Preferences Care Teams Chain Pegger Relationship Specialty Start Date End Date Silvana Velarde NP PCP - General Emergency Medicine 03/16/21 [address] [address] Pcp, No 03/16/21 .
--- OUTSIDE RECORDS SUMMARY | 2022-02-10 13:23 | XMS_ITS | Clinical Summary ---
:1970 Author Organization [facility] Address [address] [place] [address] Care Team Providers Name Role Phone Elsewhere, Pcp Primary Care Provider Unavailable Source Comments Patient records contain information from all sites at [facility]. For routine questions regarding patient records, call [phone] during business hours, M-F 8:00 AM - 5:00 PM Central Time. Record requests for emergency care only can be directed to [phone] at any time.[facility] Allergies Active Allergy Reactions Severity Noted Date [...] Comments Blood Pressure 155/94 06/24/2018 8:08 AM FASHION ARTIST Pulse 69 06/24/2018 8:08 AM FASHION ARTIST Temperature 36.7 ??C (98.1 ??F) 06/24/2018 8:08 AM FASHION ARTIST Respiratory Rate 15 10/13/2015 7:53 AM CDT Oxygen Saturation - - Inhaled Oxygen Concentration - - Weight 98.2 kg (216 lb 7.9 oz) 06/24/2018 8:08 AM FASHION ARTIST Height 157.5 cm (5' 2) 06/27/2018 2:06 PM FASHION ARTIST Body Mass Index 37.84 06/24/2018 8:08 AM FASHION ARTIST Plan of Treatment Health Maintenance Due Date [...] / Subscriber ID Effective Phone Address T e Group Dates PREFERREDONE PREFERREDONE [id number] 2015-Pre [phone] PPO ADMINISTRATIVE ADMINISTRATIVE sent [phone] SERVICES SERVICES [place] [phone] Care Teams Clerical Proofreader Relationship Specialty Start Date End Date Elsewhere, Pcp PCP - General Internal Medicine 11/26/19
--- OUTSIDE RECORDS SUMMARY | 2022-02-10 13:24 | XMS_ITS | Encounter Summary ---
:[address] [facility] Address [address] [place] [address] Care Team Providers Name Role Phone Elsewhere, Pcp Primary Care Provider Unavailable Encounter Details Date Type Department Care Team Description 02/28/2021 Orders Only RST PCP [facility] Lois Trejo M.D. [address] [place], [place] [phone] (Wo rk) Social History [...] on filedocumented in this encounter Care Teams Jr. Systems Administrator Relationship Specialty Start Date End Date Elsewhere, Pcp PCP - General Internal Medicine 11/26/19 documented as of this encounter
--- OUTSIDE RECORDS SUMMARY | 2022-02-10 13:24 | XMS_ITS | Encounter Summary ---
:1970 Author Organization [facility] Address [address] [place] [address] Care Team Providers Name Role Phone Mily Contreras APRN, C.N.P., D.N.P. Primary Care Provider Encounter Details Date Type Department Care Team Description 06/27/2018 Orders Only Division of Rheumatology in [place], [place] M.B.B.S. [address] [facility] [address] [place] [phone] [place], [place] [phone] (Wo rk) Social History Tobacco Use Types [...] on filedocumented in this encounter Care Teams Network Specialist Relationship Specialty Start Date End Date Mily Contreras APRN, C.N.P., PCP - General Family Medicine 03/22/19 D.N.P. [address] [place] [phone] documented as of this encounter
--- OUTSIDE RECORDS SUMMARY | 2022-02-10 13:24 | XMS_ITS | Encounter Summary ---
:1970 Author Organization [facility] Address [address] [place] [address] Care Team Providers Name Role Phone Mily Contreras APRN, C.N.P., D.N.P. Primary Care Provider Encounter Details Date Type Department Care Team Description 06/24/2018 Hospital Encounter Department of Muriel, Liang mcneill; Radiology, Emerita Cabello, Epicondylit is Medial Left; Building, in [facility]. Epicondylitis Lateral Right [place], [place] [address] [facility] [address] [place] [phone] Social History Tobacco Use Types Packs/Day Years [...] this BILATERAL 2 VIEWS (most inpatients AM HARNESS BRUSHER Epicondylitis proce dure are in and all Medial Left the results outpatients) Epicondylitis section. Lateral Right DX HAND BILATERAL RAD - Routine 06/24/2018 10:15 Polyarthritis Results for this 3 VIEWS (most inpatients AM HARNESS BRUSHER Epicondylitis procedure are in and all Medial Left the results outpatients) Epicondylitis section. Lateral Right documented in this encounter Results DX Elbow Bilateral 2 Views (06/24/2018 10:15 AM HARNESS BRUSHER) Anatomical Region Laterality Modality Upper Extremity, Elbow, Musculoskeletal RST LOS, Bilateral Digital Radiography Musculoskeletal ARZ LOS, Muskuloskeletal FLA LOS Specimen (Source) Anatomical Collection Method Collection Time Re ceived Time Location / / Volume Laterality 06/24/2018 10:25 AM HARNESS BRUSHER Impressions 06/24/2018 10:27 AM HARNESS BRUSHER IMPRESSION: ??Heterotopic ossification adjacent to the medial and lateral epicondyles bilaterally. Medial hypertro phic changes right elbow. No joint effusions or periarticular erosion. Narrative 06/24/2018 10:27 AM HARNESS BRUSHER EXAM: ??DX ELBOW BILATERAL 2 VIEWS Procedure Note Fay Baptiste M.D. - 06/24/2018For matting of this note might be different from the original. EXAM: DX ELBOW BILATERAL 2 VIEWS IMPRESSION: Heterotopic ossification adj acent to the medial and lateral epicondyles bilaterally. Medial hypertro phic changes right elbow. No joint effusions or periarticular erosion. Destiney Peña IMG DIAGNOSTIC IMAGING PROCE CARROLL DX Hand Bilateral 3 Views (06/24/2018 10:15 AM HARNESS BRUSHER) Anatomical Region Laterality Modality Upper Extremity, Hand, Musculoskeletal RST LOS, Bilateral Digital Radiography Musculoskeletal ARZ LOS, Muskuloskeletal FLA LOS Specimen (Source) Anatomical Collection Method Collection Time Re ceived Time Location / / Volume Laterality 06/24/2018 10:24 AM HARNESS BRUSHER Impressions 06/24/2018 10:25 AM HARNESS BRUSHER IMPRESSION: ??Mild scattered degenerative changes, greatest at the DIP joints. No periarticular erosions. Mild soft tissue swelling over the MCP joints. Narrative 06/24/2018 10:25 AM HARNESS BRUSHER EXAM: ??DX HAND BILATERAL 3 VIEWS Procedure [...] Right documented in this encounter Care Teams Power And Recovery Supervisor Relationship Specialty Start Date End Date Mily Contreras APRN C.N.P., PCP - General Family Medicine 03/22/19 D.N.P. [address] [place] [phone] documented as of this encounter
--- OUTSIDE RECORDS SUMMARY | 2022-02-10 13:24 | XMS_ITS | Encounter Summary ---
:1970 Author Organization [facility] Address [address] [place] [address] Care Team Providers Name Role Phone Vesta [...] Lipid documented in this encounter Care Teams Rag Cutting Machine Tender Relationship Specialty Start Date End Date Vesta Collado P.A.-C., P.A. PCP - General 03/23/19 11/25/19 documented as of this encounter
--- OUTSIDE RECORDS SUMMARY | 2022-02-10 13:24 | XMS_ITS | Encounter Summary ---
:1970 Author Organization [facility] Address [address] [place] [address] Care Team Providers Name Role Phone Mily Contreras APRN C.N.P., D.N.P. Primary Care Provider Reason for Referral MRI/CAT/PET Scan (Routine) - Closed Specialty Diagnoses / Procedures Referred By Contact Refer red To Contact Radiology Diagnoses Primary Osteoarthritis Elbow Left Destiney Llamas M.B.BCarineSCarine [facility] Procedures MR Elbow Left without and with IV Contrast WA MRI UPR EXT JOINT WO/W CNTRST HC MRI UPR EXT JOINT WO/W CNTRST WA MRI UPR EXT JOINT WO/W CNTRST [address] [place] [address] Referral ID Status Reason Start Date Expiration Date Visits Requ ested Visits Authorized [id number] Closed 06/26/2018 06/26/2019 1 1 ON CONSULTANT Outpatient (Routine) - Closed Specialty Diagnoses / Procedures Referred By Contact Refer red To Contact Diagnoses Primary Osteoarthritis Elbow Left Destiney Llamas M.B.B.S. [facility] Procedures NM Joint Scan WA BONE/JOINT IMAGING MULT AREAS HC BONE/JOINT IMAGING MULT AREAS WA BONE/JOINT IMAGING MULT AREAS [address] [place] [address] Referral ID Status Reason Start Date Expiration Date Visits Requ ested Visits Authorized [id number] Closed 06/26/2018 06/26/2019 6 6 ON CONSULTANT Encounter Details Date Type Department Care Team Description 06/26/2018 Orders Only Division of Destiney Llamas, Primary Osteo arthritis Rheumatology in [place]. Elbow Left [place], [place] [address] [place] [phone] Social History Tobacco Use Types Packs/Day Years [...] and with IV Contrast (06/27/2018 2:52 PM PYTHON CONSULTANT) Anatomical Region Laterality Modality Upper Extremity, Elbow, Musculoskeletal RST LOS, Left Magnetic Resonance Musculoskeletal ARZ LOS, Muskuloskeletal FLA LOS Specimen (Source) Anatomical Collection Method Collection Time Re ceived Time Location / / Volume Laterality 06/27/2018 2:39 PM PYTHON CONSULTANT Impressions 06/27/2018 3:22 PM PYTHON CONSULTANT IMPRESSION: ?? 1. Findings compatible with acute on chr onic medial and lateral epicondylitis. 2. No findings to suggest inflammatory a rthritis in the left elbow. Narrative 06/27/2018 3:22 PM PYTHON CONSULTANT EXAM: ??MR ELBOW LEFT WITHOUT AND [...] PROCEDURES NM Joint Scan (06/27/2018 11:59 AM PYTHON CONSULTANT) Anatomical Region Laterality Modality Joint, Nuclear Medicine RST LOS, Nuclear Medicine ARZ N/A Nuclear Medicine LOS, Nuclear Medicine FLA LOS Specimen (Source) Anatomical Collection Method Collection Time Re ceived Time Location / / Volume Laterality 06/27/2018 12:12 PM PYTHON CONSULTANT Impressions 06/27/2018 12:29 PM PYTHON CONSULTANT IMPRESSION: ??Mild scattered uptake about the left lateral forefoot, right femoral trochanteric bursa and left knee suprapatellar synovium; favor degenerative process. Narrative 06/27/2018 12:29 PM PYTHON CONSULTANT EXAM: ??NM JOINT SCAN RADIOPHARMACEUTICAL/MEDS: Route: [...] Left documented in this encounter Care Teams Director Of Corporate Communications Relationship Specialty Start Date End Date Mily Contreras, GILBERT, C.N.P., PCP - General Family Medicine 03/22/19 D.N.P. [address] [place] [phone] documented as of this encounter
--- OUTSIDE RECORDS SUMMARY | 2022-02-10 13:24 | XMS_ITS | Encounter Summary ---
:[address] [facility] Address [address] [place] [address] Care Team Providers Name Role Phone Unavailable Primary Care Provider Unavailable Encounter Details Date Type Department Care Team Description 06/21/2015 Hospital Encounter [facility] Otilia Johnson, OUTSIDE MACHINIST APPRENTICE, C.N.P. [address] [place], [place] [address] (Wo rk) Social History Tobacco Use Types Packs/Day Years Used Date Smoking Tobacco: Never Assessed Sex Assigned at Date Recorded Not on file documented as of this encounter Last Filed Vital Signs Vital Sign Reading Time Taken Comments Blood Pressure 135/79 06/21/2015 1:30 PM MODELING INSTRUCTOR Pulse 75 06/21/2015 1:30 PM MODELING INSTRUCTOR Temperature - - Respiratory Rate - - Oxygen Saturation - - Inhaled Oxygen Concentration - - Weight - - Height 162 cm (5' 3.78) 06/21/2015 1:30 PM MODELING INSTRUCTOR Body Mass Index - - documented in this encounter Medications at Time of Discharge Medication Sig Dispensed Refills Start Date End Date IBUPROFEN ORAL Take by mouth as needed. 0 011 documented as of this encounter Progress Notes Isabelle Johnson, R.N. - 06/21/2015 1:16 PM CST [id number] CHIEF COMPLAINT/REASON FOR VISIT Breast pain. HISTORY [...] to use warm compresses as well as [id number] pain analgesics for symptom management. She was instructed to follow up in primary care with worsening or no improvement in symptoms. All questions were answered. She left in no acute distress. Ready to learn. No apparent learning barriers were identified. Learning preferences include listening. Explained diagnosis and treatment plan. Patient/Child/Caregiver expressed understanding of the content. Isabelle Johnson N.P./mikey Electronically Signed By: ISABELLE JOHNSON NP On: 06/27/2015 07:58 PM Modified by and Electronically Signed by: ISABELLE JOHNSON BOILERMAKER APPRENTICE On: 06/27/2015 07:58 PM Source: [facility] MHSDOLBEYNONRADSYS Document Id: [id number] LING INSTRUCTOR documented in this encounter Miscellaneous Notes Miscellaneous - Kianna Nickerson Susan - 12/01/2016 10:43 AM CDT Health Maintenance Reminder December 01, 2016 CANDY GRULLON [id number] [address] [place] [phone] Dear CANDY GRULLON, We have developed a [...] visit with us more convenient. Please call [phone] to schedule services that are past due or that may shortly become due (thank you if you have already done so). We will follow up in three to six months should you have more services to schedule at that time. If you have already received any of the listed past due or upcoming services outside of [facility], please call [phone] to add them to your medical record. You may want to consider contacting your health insurance company to make sure these services are covered and find out if there will be any knz-dy-hnmcpn expense. If you have any questions about the services listed above, or if you are no longer receiving care from [facility], please contact us at [phone]. Thank you for partnering to provide you with the best care possible. We encourage you to set up your Patient Online Services account [email or web address], where you can communicate in a convenient way with us, schedule appointments, receive lab results and more. To set up your account, you will need your [facility] Number, which is [id number]. Thank you for choosing the Isabelle Johnson C.N.P., R.N. care team for your health care needs! You are receiving this notice based on [facility]'s recommended standard for preventive care and ongoing condition-specific services you may need. If you have completed or do not believe you need these services, please contact your provider or care team to discuss this further. Sincerely, KIANNA NICKERSON Electronic Signature Electronically Signed By: KIANNA NICKERSON On: December 01, 2016 This document has images extracted. Source: [facility] Document Id: [id number] Isabelle Ricardo R.N. - 06/21/2015 2:14 PM CST Work Excuse 21 June 2015 CANDY GRULLON [id number] [place] [phone] Dear CANDY GRULLON, You were examined in [...] 24, 2015 Notes: _ Sincerely, ISABELLE JOHNSON [address] [place] [address] Electronic Signature Electronically Signed By: ISABELLE JOHNSON BOILERMAKER APPRENTICE On: 21 June 2015 This document has images extracted. Source: [facility] Document Id: [id number] Electronically signed by Maryann [facility] Internal Communications Writer [id number] at 09/16/2016 8:18 AM CDT Isabelle Ricardo R.N. - 06/21/2015 2:13 PM CST Ambulatory Patient Summary [address] [place], [place] [phone] Visit Information Name: CANDY GRULLON [facility] Number: [id number] Current Date: 06/21/2015 14:13:02 [...] day x 10 day(s) New Routed to [address] [address] ibuprofen (Advil) Oral, as needed Stop Taking [...] of emergency. Electronically Signed By: ISABELLE JOHNSON BOILERMAKER APPRENTICE Signed On:21-JUN-2015 14:12:47 Your Allergies & Intolerances [...] if you dont have one. Go to [email or web address] and click on Create Your Account. Then, follow the directions to complete the online form. Youll be asked for your [facility] number which you can find at the top of this document. Your Goals/Additional instructions: Source: [facility] POWERCHART Document Id: [id number] LING INSTRUCTOR Miscellaneous - Isabelle Johnson R.N. - 06/21/2015 2:13 PM CST Ambulatory Discharge Medication List [address] [phone] Visit Information Name: CANDY GRULLON [facility] Number: [id number] Visit Date: 06/21/2015 14:13:00 Attending Provider: ISABELLE JOHNSON BOILERMAKER APPRENTICE Primary Care Provider: ISABELLE JOHNSON BOILERMAKER APPRENTICE CANDY GRULLON has been given the following [...] day x 10 day(s) New Routed to [address] [id number] ibuprofen (Advil) Oral, as needed Stop Taking [...] of emergency. Electronically Signed By: ISABELLE JOHNSON BOILERMAKER APPRENTICE Signed On:21-JUN-2015 14:12:47 Additional Information: Source: [facility] Document Id: [id number] LING INSTRUCTOR Miscellaneous - oZey Rod L.P.N. - 06/21/2015 1:30 PM CST Adult Safe Technician Intake/History Adult Safe Technician Intake/History Entered On: 06/21/2015 13:35 MODELING INSTRUCTOR Performed On: 06/21/2015 13:30 MODELING INSTRUCTOR by ZOEY ROD Intake Chief Complaint : Long standing [...] to: 5 ft 4 inch(es), 64 inch(es)) ZOEY ROD - 06/21/2015 13:30 MODELING INSTRUCTOR General Info Information Given By : Patient Languages : Hong Konger Is Patient Female and 13-50 no hysterectomy : No ZOEY ROD - 06/21/2015 13:30 MODELING INSTRUCTOR Subjective Pain Symptoms : Yes ZOEY ROD - 06/21/2015 13:30 MODELING INSTRUCTOR Pain Scale Pain Scale Verbal 0-10 : Open ZOEY ROD - 06/21/2015 13:30 MODELING INSTRUCTOR Pain Pain Assessment Grid Pain 1 Location : Breast Laterality : Left Intensity : 5 ZOEY ROD - 06/21/2015 13:30 MODELING INSTRUCTOR Dependent Habits Exposure to Tobacco Smoke : Patient smokes Smoking Status : Current every day smoker Tobacco 2A : Yes Tobacco Use/Currently Using : Yes Tobacco Use/Last 30 Days : Yes Tobacco Use/Last 12 months : Yes Type : Cigarettes: Less than 20 per day Tobacco Use/Advised to Quit : Yes Alcohol Use : Yes ZOEY ROD - 06/21/2015 13:30 MODELING INSTRUCTOR Caffeine Use Grid Caffeine Use : Current Type : Soft drinks Frequency : Daily ZOEY ROD - 06/21/2015 13:30 MODELING INSTRUCTOR Recreational Drug Use Grid Drug Use : None ZOEY ROD - 06/21/2015 13:30 MODELING INSTRUCTOR Source: [facility] [employer] Document Id: [id number] MODELING INSTRUCTOR!46 LING INSTRUCTOR documented in this encounter Plan of Treatment Not on filedocumented as of this encounter Visit Diagnoses Not on filedocumented in this encounter
--- OUTSIDE RECORDS SUMMARY | 2022-02-10 13:24 | XMS_ITS | Encounter Summary ---
:1970 Author Organization [facility] Address [address] [place] [address] Care Team Providers Name Role Phone Elsewhere, Pcp Primary Care Provider Unavailable Reason for Visit Reason Comments COVID Inquiry Encounter Details Date Type Department Care Team Description 07/07/2020 Clinical Communication Central Appointment Prescheduli LAKISHA sebastian Office in [address] [phone] Social History Tobacco Use Types Packs/Day Years [...] Because of symptoms, transfer patient to: : [facility] Nurse Line (End Screening) Symptom Onset Date of symptom onset: 07/05/20 Testing Recommendation Endpoint Is testing recommended? : Recommended to test Plan: Endpoint recommendation: Transferred to Nursing/COVID Line/Care Team *Reminder if sending patient for testing in [facility] or [facility], route encounter to the correct testing pool. documented in this encounter Plan of Treatment Not on filedocumented as of this encounter Visit Diagnoses Not on filedocumented in this encounter Care Teams Harvest Field Ticketer Relationship Specialty Start Date End Date Elsewhere, Pcp PCP - General Internal Medicine 11/26/19 documented as of this encounter
--- OUTSIDE RECORDS SUMMARY | 2022-02-10 13:24 | XMS_ITS | Encounter Summary ---
:1970 Author Organization [facility] Address [address] [place] [address] Care Team Providers Name Role Phone Unavailable Primary Care Provider Unavailable Encounter Details Date Type Department Care Team Description 06/08/2014 Hospital Encounter [facility]X [facility] Manuela Hi P.A.-C. Social History Tobacco [...] 161 cm (5' 3.39) 06/08/2014 8:52 AM FILTRATION PLANT MECHANIC Body Mass Index - - documented in this encounter Medications at Time of Discharge Medication Sig Dispensed Refills Start Date End Date IBUPROFEN ORAL Take by mouth as needed. 0 011 documented as of this encounter Consult Notes Manuela Brewer - 06/08/2014 8:40 AM CST [id number] Ms. Grullon is a very pleasant 43-year-old [...] BREWER PA-C On: 06/15/2014 11:03 AM Source: [facility] MHSDOLBEYNMICHELETS Document Id: [id number] RATION PLANT MECHANIC documented in this encounter Miscellaneous Notes Miscellaneous - Manuela Brewer - 06/08/2014 12:11 PM CST Ambulatory Patient Summary [facility] [address], [address] [place], [place] [phone] Visit Information Name: CANDY GRULLON [facility] Number: [id number] Current Date: 06/08/2014 12:11:57 Physicians Attending Provider: MANUELA BREWER PA-C Primary Care Provider: WILLEM SAEED RN, WELDING TESTER CANDY GRULLON has been given the following [...] Appointments Date Time Location Provider 06/17/2014 09:45 [facility] Ortho Manuela Brewer PA-C Attention: Contact your local Clinic if further appointment detail needed. Your Goals/Additional instructions: Source: [facility] POWERCHART Document Id: [id number] RATION PLANT MECHANIC Miscellaneous - Manuela Brewer - 06/08/2014 12:11 PM CST Ambulatory Discharge Medication List [facility] [address], [address] [place], [place] [phone] Visit Information Name: CANDY GRULLON [facility] Number: [id number] Visit Date: 06/08/2014 12:11:56 Attending Provider: MANUELA BREWER PA-C Primary Care Provider: WILLEM SAEED RN, WELDING TESTER CANDY GRULLON has been given the following [...] PA-C Signed On:08-JUN-2014 12:11:53 Additional Information: [facility] Document Id: [id number] RATION PLANT MECHANIC Miscellaneous - Nieves Grullon R.N. - 06/08/2014 8:52 AM CST Adult Egg And Spice Mixer Intake/History Adult Egg And Spice Mixer Intake/History Entered On: 06/08/2014 8:53 FILTRATION PLANT MECHANIC Performed On: 06/08/2014 8:52 FILTRATION PLANT MECHANIC by DAVEY GRULLON violin teacher Chief Complaint : #2 Supartz injection in left knee Height : 161 cm(Converted to: 5 ft 3 inch(es), 63 inch(es)) DAVEY GRULLON RN - 06/08/2014 8:52 FILTRATION PLANT MECHANIC General Info Information Given By : Patient Languages : Belgian Is Patient Female and 13-50 no hysterectomy : No DAVEY GRULLON RN - 06/08/2014 8:52 FILTRATION PLANT MECHANIC Subjective Pain Symptoms : Yes DAVEY GRULLON RN - 06/08/2014 8:52 FILTRATION PLANT MECHANIC Pain Scale Pain Scale Verbal 0-10 : Open DAVEY GRULLON RN - 06/08/2014 8:52 FILTRATION PLANT MECHANIC Pain Pain Assessment Grid Pain 1 Location : Knee Laterality : Left Intensity : 4 DAVEY GRULLON RN - 06/08/2014 8:52 FILTRATION PLANT MECHANIC Dependent Habits Tobacco Use/Currently Using : Yes Exposure to Tobacco Smoke : Patient smokes Smoking Status : Current every day smoker DAVEY GRULLON RN - 06/08/2014 8:52 FILTRATION PLANT MECHANIC Tobacco Use Grid Type : Cigarettes Cigarette Use Packs/Day : 0.5 DAVEY GRULLON RN - 06/08/2014 8:52 FILTRATION PLANT MECHANIC Caffeine Use Grid Caffeine Use : Current Type : Soft drinks Frequency : Daily DAVEY GRULLON RN - 06/08/2014 8:52 FILTRATION PLANT MECHANIC Recreational Drug Use Grid Drug Use : None DAVEY GRULLON RN - 06/08/2014 8:52 FILTRATION PLANT MECHANIC ID Screen Drug Resistant Organism : No Travel Within Last 21 Days : No DAVEY GRULLON RN - 06/08/2014 8:52 FILTRATION PLANT MECHANIC Source: [facility] POWERCHART Document Id: [id number] FILTRATION PLANT MECHANIC!37 RATION PLANT MECHANIC documented in this encounter Plan of Treatment Not on filedocumented as of this encounter Visit Diagnoses Not on filedocumented in this encounter
--- OUTSIDE RECORDS SUMMARY | 2022-02-10 13:24 | XMS_ITS | Encounter Summary ---
:1970 Author Organization [facility] Address [address] [place] [address] Care Team Providers Name Role Phone Elsewhere, Pcp Primary Care Provider Unavailable Encounter Details Date Type Department Care Team Description 07/07/2020 Admin Visit Department of Family Medicine, [facility] [place] in [place], [place] [address] [place] [address] Social History Tobacco Use Types Packs/Day [...] documented as of this encounter Care Teams Tomb Maker Helper Relationship Specialty Start Date End Date Elsewhere, Pcp PCP - General Internal Medicine 11/26/19 documented as of this encounter
--- OUTSIDE RECORDS SUMMARY | 2022-02-10 13:24 | XMS_ITS | Encounter Summary ---
:1970 Author Organization [facility] Address [address] [place] [address] Care Team Providers Name Role Phone Unavailable Primary Care Provider Unavailable Encounter Details Date Type Department Care Team Description 10/13/2015 Hospital Encounter HX [facility] Severo Ruelas, P.A.-C. [address] [place] [address] (Wo rk) Social History Tobacco Use Types [...] SCHULZ P.A.-C. On: 10/17/2015 10:33 AM Source: [employer] Document Id: [id number] documented in this encounter Miscellaneous Notes Miscellaneous - Sandra Cespedes LCarineP.NCarine - 10/13/2015 7:53 AM CDT Adult At Risk Specialist Intake/History Adult At Risk Specialist Intake/History Entered On: 10/13/2015 7:56 CDT Performed [...] Information Given By : Patient Languages : Ukrainian Is Patient Female and 13-50 no hysterectomy [...] : Yes Alcohol Use : Yes SANDRA CESPEDES LPN - 10/13/2015 7:53 CDT Caffeine Use Grid Caffeine Use : Current Type : Soft drinks Frequency : Daily SANDRA CESPEDES LPN - 10/13/2015 7:53 CDT Recreational Drug Use Grid Drug Use : None SANDRA CESPEDES LPN - 10/13/2015 7:53 CDT [facility] Document Id: [id number]!50 documented in this encounter Plan of Treatment Not on filedocumented as of this encounter Visit Diagnoses Not on filedocumented in this encounter
--- OUTSIDE RECORDS SUMMARY | 2022-02-10 13:24 | XMS_ITS | Encounter Summary ---
:1970 Author Organization [facility] Address [address] [place] [address] Care Team Providers Name Role Phone Elsewhere, Pcp Primary Care Provider Unavailable Encounter Details Date Type Department Care Team Description 03/25/2020 Admin Visit Department of Family Medicine, [facility] [place] in [place], [place] [address] [place] [address] Social History Tobacco Use Types Packs/Day [...] COVID19 Pending 03/24/2020 03/25/2020 03/25/2020 11:55 PM WATER METER MECHANIC documented as of this encounter Care Teams Returns Clerk Relationship Specialty Start Date End Date Elsewhere, Pcp PCP - General Internal Medicine 11/26/19 documented as of this encounter
--- OUTSIDE RECORDS SUMMARY | 2022-02-10 13:24 | XMS_ITS | Encounter Summary ---
:1970 Author Organization [facility] Address [address] [place] [address] Care Team Providers Name Role Phone Isabelle Henderson APRN, C.N.P. Primary Care Provider Encounter Details Date Type Department Care Team Description 02/20/2017 Orders Only Department of Family Isabelle Henderson Scr eening Examination Diabetes Mellitus; Medicine, Chuy Ascencio APRN, C.N.P. General Medical Examination Adult Clinic, in [address] [address] [phone] [place], [place] (Work) [phone] [phone] Social History Tobacco Use Types Packs/Day Years Used Date Smoking Tobacco: Every Day Sex Assigned at Date Recorded Not on file documented as of this encounter Plan of Treatment Not on filedocumented as of this encounter Visit Diagnoses Diagnosis Screening Examination Diabetes Mellitus General Medical Examination Adult documented in this encounter Care Teams Senior Storage Administrator Relationship Specialty Start Date End Date Isabelle Henderson APRN, C.N.P. PCP - General 10/05/16 08/17/17 documented as of this encounter
--- OUTSIDE RECORDS SUMMARY | 2022-02-10 13:24 | XMS_ITS | Encounter Summary ---
:1970 Author Organization [facility] Address [address] [place] [address] Care Team Providers Name Role Phone Elsewhere, Pcp Primary Care Provider Unavailable Reason for Visit Reason Comments COVID Inquiry Encounter Details Date Type Department Care Team Description 03/23/2020 Clinical Communication Central Appointment Pres[place] Office in [address] [phone] Social History Tobacco Use Types Packs/Day Years [...] Endpoint recommendation: Testing indicated, sent patient to [facility] located at [address] You must call [phone] for an appointment time. Testing hours are [...] sending patient for testing in T or [facility], an email notification is required. AL LABORATORY TECHNICIAN APPRENTICE documented in this encounter Plan of Treatment Not on filedocumented as of this encounter Visit Diagnoses Not on filedocumented in this encounter Care Teams Printed Circuit Board Preassembler Relationship Specialty Start Date End Date Elsewhere, Pcp PCP - General Internal Medicine 11/26/19 documented as of this encounter
--- OUTSIDE RECORDS SUMMARY | 2022-02-10 13:24 | XMS_ITS | Encounter Summary ---
:1970 Author Organization [facility] Address [address] [place] [address] Care Team Providers Name Role Phone Elsewhere, Pcp Primary Care Provider Unavailable Encounter Details Date Type Department Care Team Description 07/23/2020 Orders Only [facility] PCP [facility] Sa je Trejo M.D. [address] [place], [place] [phone] (Wo rk) Social History [...] on filedocumented in this encounter Care Teams Physician [facility] Relationship Specialty Start Date End Date Elsewhere, Pcp PCP - General Internal Medicine 11/26/19 documented as of this encounter
--- OUTSIDE RECORDS SUMMARY | 2022-02-10 13:24 | XMS_ITS | Encounter Summary ---
:1970 Author Organization [facility] Address [address] [place] [address] Care Team Providers Name Role Phone Mily Contreras APRN, C.N.P., D.N.P. Primary Care Provider Encounter Details Date Type Department Care Team Description 05/24/2018 Orders Only [facility] PCP [facility] MNT Mily Contreras, Screening Mammogram Breast Cancer; GILBERT, C.N.P., Screening Exam ination Diabetes Mellitus; D.N.P. Screening Lipid [address] [place] [phone] Social History Tobacco Use Types Packs/Day Years Used Date Smoking Tobacco: Every Day Sex Assigned at Date Recorded Not on file documented as of this encounter Plan of Treatment Not on filedocumented as of this encounter Results BI Breast Screening Bilateral with Tomosynthesis (08/10/2020 7:46 AM CDT) Anatomical Region Laterality Modality Breast, Breast Imaging RST LOS, Breast Imaging ARZ [facility] Bilateral Mammography Imaging FLA [facility] Specimen (Source) Anatomical Collection Method Collection Time [...] am ASSESSMENT: BI-RADS: 1: Negative. Julia Licea APRN.N.P., D.N.P. IMG BI PROCEDURES documented in this encounter Visit Diagnoses Diagnosis Screening Mammogram Breast Cancer Screening Examination Diabetes Mellitus Screening Lipid Screening Mammogram Breast Cancer documented in this encounter Care Teams Form Setter/Driver Relationship Specialty Start Date End Date Mily Contreras APRN, C.N.P., PCP - General Family Medicine 03/22/19 D.N.P. [address] [place] [address] documented as of this encounter
--- OUTSIDE RECORDS SUMMARY | 2022-02-10 13:24 | XMS_ITS | Encounter Summary ---
:1970 Author Organization [facility] Address [address] [place] [address] Care Team Providers Name Role Phone Mily Contreras APRN, C.N.P., D.N.P. Primary Care Provider Reason for Visit Outpatient (Routine) - Closed Specialty Diagnoses / Procedures Referred By Contact Refer red To Contact Diagnoses Primary Osteoarthritis Elbow Left Destiney Llamas [facility] Procedures NM Joint Scan MI BONE/JOINT IMAGING MULT AREAS HC BONE/JOINT IMAGING MULT AREAS MI BONE/JOINT IMAGING MULT AREAS [address] [place] [phone] Referral ID Status Reason Start Date Expiration Date Visits Requ ested Visits Authorized [id number] Closed 06/26/2018 06/26/2019 6 6 Encounter Details Date Type Department Care Team Description 06/27/2018 Hospital Encounter Department of Radiology, [place]ly [place] [address] [facility] [address] [place] [phone] Social History Tobacco Use Types Packs/Day Years [...] Results f or this (most inpatients AM TOMBSTONE ERECTOR Osteoarthritis Elbow pro cedure are in and all Left the results outpatients) section. documented in this encounter Visit Diagnoses Not on filedocumented in this encounter Administered Medications Inactive Administered Medications - up to 3 most recent administrations Medication Order MAR Action Action Date Dose Rate Site potassium perchlorate solution Given 06/27/2018 11:00 AM TOMBSTONE ERECTOR 200 mg 200 mg 200 mg, oral, Once, On Alisha 06/27/18 at 1130, For 1 dose documented in this encounter Care Teams Machine Chocolate Molder Relationship Specialty Start Date End Date Mily Contreras APRN, C.N.P., PCP - General Family Medicine 03/22/19 D.N.P. [address] [place] [address] documented as of this encounter
--- OUTSIDE RECORDS SUMMARY | 2022-02-10 13:24 | XMS_ITS | Encounter Summary ---
:1970 Author Organization [facility] Address [address] [place] [address] Care Team Providers Name Role Phone Mily Contreras APRN, C.N.P., D.N.P. Primary Care Provider Reason for Visit Reason Onset Date Comments Results 06/26/2018 Encounter Details Date Type Department Care Team Description 06/26/2018 Clinical Communication Division of Diane Shannon, Results Rheumatology in [place], [place] [address] [facility] [address] [place] [phone] [phone] Social History Tobacco Use Types Packs/Day Years [...] following references were used: nursing clinical judgement EL RETROFIT INSTALLER Telephone Encounter - Diane Shannon R.N. - [...] schedule it for the more symptomatic side. EL RETROFIT INSTALLER documented in this encounter Plan of Treatment Not on filedocumented as of this encounter Visit Diagnoses Not on filedocumented in this encounter Care Teams Cutting And Printing Machine Operator Relationship Specialty Start Date End Date Mily Contreras APRN, C.N.P., PCP - General Family Medicine 03/22/19 D.N.P. [address] [place] [phone] documented as of this encounter
--- OUTSIDE RECORDS SUMMARY | 2022-02-10 13:24 | XMS_ITS | Encounter Summary ---
:1970 Author Organization [facility] Address [address] [place] [address] Care Team Providers Name Role Phone Unavailable Primary Care Provider Unavailable Encounter Details Date Type Department Care Team Description 06/17/2014 Hospital [facility] Manuela Hi P.A.-C. Social History Tobacco [...] 161 cm (5' 3.39) 06/17/2014 9:36 AM FIELD ARTILLERY CREWMEMBER Body Mass Index - - documented in this encounter Medications at Time of Discharge Medication Sig Dispensed Refills Start Date End Date IBUPROFEN ORAL Take by mouth as needed. 0 011 documented as of this encounter Consult Notes Manuela Brewer - 06/17/2014 9:30 AM CST [id number] Ms. Grullon is a very pleasant 43-year-old [...] BREWER PA-C On: 06/22/2014 04:03 PM Source: [facility] MHSDUMA Document Id: [id number] D ARTILLERY CREWMEMBER documented in this encounter Miscellaneous Notes Miscellaneous - Magda Barrera L.P.N. - 06/17/2014 9:36 AM CST Adult Checkout Operator Intake/History Adult Checkout Operator Intake/History Entered On: 06/17/2014 9:37 FIELD ARTILLERY CREWMEMBER Performed On: 06/17/2014 9:36 FIELD ARTILLERY CREWMEMBER by MAGDA BARRERA LPN Intake Chief Complaint : Patient here for 3rd Supartz injection to left knee, pain 3/10 Height : 161 cm(Converted to: 5 ft 3 inch(es), 63 inch(es)) MAGDA BARRERA LPN - 06/17/2014 9:36 FIELD ARTILLERY CREWMEMBER General Info Information Given By : Patient Preferred Communication Mode : Verbal Languages : Citizen Of [place] Is Patient Female and 13-50 no hysterectomy : No MAGDA BARRERA LPN - 06/17/2014 9:36 FIELD ARTILLERY CREWMEMBER Subjective Pain Symptoms : Yes MAGDA BARRERA LPN - 06/17/2014 9:36 FIELD ARTILLERY CREWMEMBER Pain Scale Pain Scale Verbal 0-10 : Open MAGDA BARRERA LPN - 06/17/2014 9:36 FIELD ARTILLERY CREWMEMBER Pain Pain Assessment Grid Pain 1 Location : Knee Laterality : Left Intensity : 3 MAGDA BARRERA LPN 06/17/2014 9:36 FIELD ARTILLERY CREWMEMBER Dependent Habits Tobacco Use/Currently Using : Yes Exposure to Tobacco Smoke : Patient smokes Smoking Status : Current every day smoker MAGDA BARRERA LPN - 06/17/2014 9:36 FIELD ARTILLERY CREWMEMBER Tobacco Use Grid Type : Cigarettes Cigarette Use Packs/Day : 0.5 MAGDA BARRERA LPN - 06/17/2014 9:36 FIELD ARTILLERY CREWMEMBER Caffeine Use Grid Caffeine Use : Current Type : Soft drinks Frequency : Daily MAGDA BARRERA LPN - 06/17/2014 9:36 FIELD ARTILLERY CREWMEMBER Recreational Drug Use Grid Drug Use : None MAGDA BARRERA LPN - 06/17/2014 9:36 FIELD ARTILLERY CREWMEMBER ID Screen Drug Resistant Organism : No Travel Within Last 21 Days : No MAGDA BARRERA LPN - 06/17/2014 9:36 FIELD ARTILLERY CREWMEMBER [facility] Document Id: [id number] FIELD ARTILLERY CREWMEMBER!38 D ARTILLERY CREWMEMBER documented in this encounter Plan of Treatment Not on filedocumented as of this encounter Visit Diagnoses Not on filedocumented in this encounter
--- OUTSIDE RECORDS SUMMARY | 2022-02-10 13:24 | XMS_ITS | Encounter Summary ---
:1970 Author Organization [facility] Address [address] [place] [address] Care Team Providers Name Role Phone Elsewhere, Pcp Primary Care Provider Unavailable Reason for Visit Reason Comments COVID Nurse Line Encounter Details Date Type Department Care Team Description 07/07/2020 Clinical Communication Division of Aster Camejo COV ID Nurse Carolyn [facility] Internal M.Tami, R.N. [facility] [address] [place] [address] in [facility] [phone] [place] [address] [place] [address] (Work) [place] [phone] Social History Tobacco Use Types Packs/Day Years [...] Screening ASSESSMENT Region Select appropriate region: : [place] Age Pathway Select approprite pathway: : Adult [...] swabbed for COVID-19 Only , sent to [facility] located at [address] [facility]. You must schedule an appointment for testing at this location. Please call [phone] during the hours of 7 am to [...] water are not available, use a hand historiography teacher -Avoid touching your eyes, nose and mouth. [...] care: Yes The following references were used: [facility] novel coronavirus (COVID- 19) resources documented in this encounter Plan of Treatment Not on filedocumented as of this encounter Visit Diagnoses Not on filedocumented in this encounter Care Teams Home Service Director Relationship Specialty Start Date End Date Elsewhere, Pcp PCP - General Internal Medicine 11/26/19 documented as of this encounter
--- OUTSIDE RECORDS SUMMARY | 2022-02-10 13:24 | XMS_ITS | Encounter Summary ---
:[address] [facility] Address [address] [place] [address] Care Team Providers Name Role Phone Elsewhere, Pcp Primary Care Provider Unavailable Reason for Referral Specialty Diagnoses / Procedures Referred By Contact Refer red To Contact Lois Lopez M.D. [facility] [address] [place] [phone] Referral ID Status Reason Start Date Expiration Date Visits Requ ested Visits Authorized RT MANAGER Encounter Details Date Type Department Care Team Description 02/28/2021 Orders Only [facility] PCP [facility] MNT Lois Lopez M.D. [address] [place] [phone] (Wo rk) Social History Tobacco [...] on filedocumented in this encounter Care Teams Lime Burner Relationship Specialty Start Date End Date Elsewhere, Pcp PCP - General Internal Medicine 11/26/19 documented as of this encounter
--- OUTSIDE RECORDS SUMMARY | 2022-02-10 13:24 | XMS_ITS | Encounter Summary ---
:1970 Author Organization [facility] Address [address] [place] [address] Care Team Providers Name Role Phone Mily Contreras APRN C.N.P., D.N.P. Primary Care Provider Reason for Referral Outpatient (Routine) - Closed Specialty Diagnoses / Procedures Referred By Contact Refer red To Contact Diagnoses Primary Osteoarthritis Elbow Left Destiney Llamas M.B.B.[facility] Procedures NM Joint Scan AR BONE/JOINT IMAGING MULT AREAS HC BONE/JOINT IMAGING MULT AREAS AR BONE/JOINT IMAGING MULT AREAS [address] [place] [address] Referral ID Status Reason Start Date Expiration Date Visits Requ ested Visits Authorized [id number] Closed 06/26/2018 06/26/2019 6 6 SE COLLECTOR Reason for Visit Outpatient (Routine) - Closed Specialty Diagnoses / Procedures Referred By Contact Refer red To Contact Diagnoses Primary Osteoarthritis Elbow Left Destiney Llamas M.B.B.S[facility] Procedures NM Joint Scan AR BONE/JOINT IMAGING MULT AREAS HC BONE/JOINT IMAGING MULT AREAS AR BONE/JOINT IMAGING MULT AREAS [address] [place] [address] Referral ID Status Reason Start Date Expiration Date Visits Requ ested Visits Authorized [id number] Closed 06/26/2018 06/26/2019 6 6 Encounter Details Date Type Department Care Team Description 06/27/2018 Hospital Encounter Department of [place], Primary Osteoarthritis Radiology, Gonda Destiney, Elbow Left Building, in [facility] [place], [address] [place], [place] [address] [facility] [address] [place], [place] [phone] (Work) [phone] Social History Tobacco Use Types Packs/Day Years [...] Results f or this (most inpatients AM REFUSE COLLECTOR Osteoarthritis Elbow pro cedure are in and all Left the results outpatients) section. documented in this encounter Results NM Joint Scan (06/27/2018 11:59 AM REFUSE COLLECTOR) Anatomical Region Laterality Modality Joint, Nuclear Medicine RST LOS, Nuclear Medicine ARZ N/A Nuclear Medicine LOS, Nuclear Medicine FLA LOS Specimen (Source) Anatomical Collection Method Collection Time Re ceived Time Location / / Volume Laterality 06/27/2018 12:12 PM REFUSE COLLECTOR Impressions 06/27/2018 12:29 PM REFUSE COLLECTOR IMPRESSION: ??Mild scattered uptake about the left lateral forefoot, right femoral trochanteric bursa and left knee suprapatellar synovium; favor degenerative process. Narrative 06/27/2018 12:29 PM REFUSE COLLECTOR EXAM: ??NM JOINT SCAN RADIOPHARMACEUTICAL/MEDS: Route: intravenous [...] suprapatellar synovium; favor degenerative process. Destiney Peña [facility] PROCEDURES documented in this encounter Visit Diagnoses Diagnosis Primary Osteoarthritis Elbow Left documented in this encounter Administered Medications Inactive Administered Medications - up to 3 most recent administrations Medication Order MAR Action Action Date Dose Rate Site sodium pertechnetate Tc 99m Given 06/27/2018 11:45 AM 21.3 aurelia curies injection (TECHNETIUM REFUSE COLLECTOR Tc-99m) 21.3 millicurie, intravenous, Once, On Alisha 06/27/18 at 1145, For 1 dose documented in this encounter Care Teams Triple Valve Tester Relationship Specialty Start Date End Date Mily Contreras APRN, C.N.P., PCP - General Family Medicine 03/22/19 D.N.P. [address] [place] [address] documented as of this encounter
--- OUTSIDE RECORDS SUMMARY | 2022-02-10 13:24 | XMS_ITS | Encounter Summary ---
:1970 Author Organization [facility] Address [address] [place] [address] Care Team Providers Name Role Phone Elsewhere, Pcp Primary Care Provider Unavailable Reason for Visit Reason Onset Date Comments Outpatient COVID-19 Testing 03/24/2020 Encounter Details Date Type Department Care Team Description 03/24/2020 External Outreach Department of [facility] Cuca Montgomery Infection Upper Medicine, [place] Ryan PCarineACarine-CCarine Respiratory (Primary Clinic, in [address] Dx) [address] [address] [place], [place] [phone] [address] (Work) [phone] Social History Tobacco Use Types Packs/Day Years Used Date Smoking Tobacco: Every Day Cigarettes 1.5 25 S tarted: 1985 Smokeless Tobacco: Never Alcohol Use Standard Drinks/Week Comments Yes 0 (1 standard drink = 0.6 oz pure alcoho l) Sex Assigned at Date Recorded Not on file documented as of this encounter Progress Notes Jaja Han L.P.N. - 03/24/2020 3:50 PM CST Encounter created for the drive-through COVID-19 testing. F LIBRARIAN WORK WITH BLIND documented in this encounter Plan of Treatment Not on filedocumented as of this encounter Procedures Procedure Name Priority Date/Time Associated Diagnosis Comme nts SARS CORONAVIRUS-2 Routine 03/25/2020 7:06 AM Infection Upper Results for this RNA, V CHIEF LIBRARIAN WORK WITH BLIND Respiratory procedure are i n the results section. documented in this encounter Results SARS Coronavirus-2 RNA, V Symptomatic (03/25/2020 7:06 AM CHIEF LIBRARIAN WORK WITH BLIND) [facility] Method Time Signature SARS-CoV-2 Swab, 03/25/2020 ECLR Specimen Nasopharynx 11:54 PM Source CHIEF LIBRARIAN WORK WITH BLIND SARS CoV-2 Undetected Undetected 03/25/2020 ECLR RNA, TMA 11:54 PM CHIEF LIBRARIAN WORK WITH BLIND Comment: SARS-CoV-2 RNA absent. This result does not rule out COVID-19 in the patient, as the sensitivity of the test depends o n the timing of the specimen collection and the quality of the specim en. Result should be correlated with patient's history and clinical presentat ion. ----ADDITIONAL INFORMATION---- This test is performed using the Aptima SARS-CoV-2 assay ([employer] which has received Emergency Use Authori zation (EUA) by the U.S. Food and Drug Administration. Fact sheets for this Emergency Use Autho rization (EUA) assay can be found at the following links: For Healthcare Providers: https://www.[employer] a.gov/media/670983/download For Patients: https://www.fda.gov/media/ 947153/download Specimen Anatomical Collection Method Collection Time Receive d Time (Source) Location / / Volume Laterality Varies 03/25/2020 7:06 AM 0 3:33 (Nasopharynx) CHIEF LIBRARIAN WORK WITH BLIND PM CHIEF LIBRARIAN WORK WITH BLIND Flako Montgmoery P.A.-C. LAB MICROBIOLOGY - GENERAL O THU Performing Organization Address City/State/[facility] Code Phon e Number [facility]- [address] [place] [phone] [facility] [place] [address] documented in this encounter Visit Diagnoses Diagnosis Infection Upper Respiratory - Primary documented in this encounter Additional Health Concerns Infection Onset Date Last Indicated Resolved Time COVID19 Pending 03/24/2020 03/25/2020 03/25/2020 11:55 PM CHIEF LIBRARIAN WORK WITH BLIND documented as of this encounter Care Teams Manufacturing Process Technician Relationship Specialty Start Date End Date Elsewhere, Pcp PCP - General Internal Medicine 11/26/19 documented as of this encounter
--- OUTSIDE RECORDS SUMMARY | 2022-02-10 13:24 | XMS_ITS | Encounter Summary ---
:[address] [facility] Address [address] [place] [address] Care Team Providers Name Role Phone Mily Contreras APRN C.N.P., D.N.P. Primary Care Provider Reason for Referral MRI/CAT/PET Scan (Routine) - Closed Specialty Diagnoses / Procedures Referred By Contact Refer red To Contact Radiology Diagnoses Primary Osteoarthritis Elbow Left Destiney Llamas M.B.B.S. [facility] Procedures MR Elbow Left without and with IV Contrast AL MRI UPR EXT JOINT WO/W CNTRST HC MRI UPR EXT JOINT WO/W CNTRST AL MRI UPR EXT JOINT WO/W CNTRST [address] [place] [address] Referral ID Status Reason Start Date Expiration Date Visits Requ ested Visits Authorized [id number] Closed 06/26/2018 06/26/2019 1 1 R BAGS SEWING MACHINE OPERATOR Reason for Visit MRI/CAT/PET Scan (Routine) - Closed Specialty Diagnoses / Procedures Referred By Contact Refer red To Contact Radiology Diagnoses Primary Osteoarthritis Elbow Left Destiney Llamas M.B.B.SCarine [facility] [facility] Procedures MR Elbow Left without and with IV Contrast AL MRI UPR EXT JOINT WO/W CNTRST HC MRI UPR EXT JOINT WO/W CNTRST AL MRI UPR EXT JOINT WO/W CNTRST [address] [place] [address] Referral ID Status Reason Start Date Expiration Date Visits Requ ested Visits Authorized [id number] Closed 06/26/2018 06/26/2019 1 1 Encounter Details Date Type Department Care Team Description 06/27/2018 Hospital Encounter Department of [place], Primary Osteoarthritis Radiology, [place] Destiney, Elbow Le [facility], in .B.B.S. [place], [facility] [address] [place], [place] [address] [facility] [address] [place], [place] [phone] (Work) [phone] Social History Tobacco Use Types Packs/Day Years [...] 157.5 cm (5' 2) 06/27/2018 2:06 PM PAPER BAGS SEWING MACHINE OPERATOR Body Mass Index - - [...] r WITHOUT AND WITH (most inpatients PM PAPER BAGS SEWING MACHINE OPERATOR Osteoarthritis Elbow this procedure IV CONTRAST and all Left are in the outpatients) results section. documented in this encounter Results MR Elbow Left without and with IV Contrast (06/27/2018 2:52 PM PAPER BAGS SEWING MACHINE OPERATOR) Anatomical Region Laterality Modality Upper Extremity, Elbow, Musculoskeletal RST LOS, Left Magnetic Resonance Musculoskeletal ARZ LOS, Muskuloskeletal FLA LOS Specimen (Source) Anatomical Collection Method Collection Time Re ceived Time Location / / Volume Laterality 06/27/2018 2:39 PM PAPER BAGS SEWING MACHINE OPERATOR Impressions 06/27/2018 3:22 PM PAPER BAGS SEWING MACHINE OPERATOR IMPRESSION: ?? 1. Findings compatible with acute on chr onic medial and lateral epicondylitis. 2. No findings to suggest inflammatory a rthritis in the left elbow. Narrative 06/27/2018 3:22 PM PAPER BAGS SEWING MACHINE OPERATOR EXAM: ??MR ELBOW LEFT WITHOUT AND WITH [...] injection 0.5-15 mL Given 06/27/2018 2:48 PM PAPER BAGS SEWING MACHINE OPERATOR 10 m L (GADAVIST) 0.5-15 mL, intravenous, Once in imaging, contrast, Starting on Alisha 06/27/18 at 1354, For 1 dose, Imaging Protocol Orders, Dose per Radiant Medication Guidelines documented in this encounter Care Teams Protective Services Social Worker Relationship Specialty Start Date End Date Mily Contreras APRN, C.N.P., PCP - General Family Medicine 03/22/19 D.N.P. [address] [place] [phone] documented as of this encounter
--- OUTSIDE RECORDS SUMMARY | 2022-02-10 13:24 | XMS_ITS | Encounter Summary ---
:1970 Author Organization [facility] Address [address] [place] [address] Care Team Providers Name Role Phone Elsewhere, Pcp Primary Care Provider Unavailable Reason for Referral Outpatient (Routine) - Closed Specialty Diagnoses / Procedures Referred By Contact Refer red To Contact Rheumatology Diagnoses Polyarthritis Silvana Velarde C.N.P. [facility] [address] [place], [place] [address] Referral ID Status Reason Start Date Expiration Date Visits Requ ested Visits Authorized [id number] Closed 03/12/2018 03/12/2019 1 1 RETE WORKER Encounter Details Date Type Department Care Team Description 03/12/2018 Community Orders [facility] Silvana Velarde Tavon yarthritis [facility] Silva CCarineN.PCarine (Primary Dx) [facility] [address] [place] [address] [id number] Social History Tobacco Use Types Packs/Day Years [...] COVID19 Pending 03/24/2020 03/25/2020 03/25/2020 11:55 PM CONCRETE WORKER COVID19 Pending 07/07/2020 07/07/2020 07/07/2020 9:46 PM CDT documented as of this encounter Care Teams Board Of Education Secretary Relationship Specialty Start Date End Date Elsewhere, Pcp PCP - General Internal Medicine 11/26/19 documented as of this encounter
--- OUTSIDE RECORDS SUMMARY | 2022-02-10 13:24 | XMS_ITS | Encounter Summary ---
:1970 Author Organization [facility] Address [address] [place] [address] Care Team Providers Name Role Phone Elsewhere, Pcp Primary Care Provider Unavailable Reason for Referral Specialty Diagnoses / Procedures Referred By Contact Refer red To Contact Lois Lopez M.D. [facility] [address] [place] [phone] Referral ID Status Reason Start Date Expiration Date Visits Requ ested Visits Authorized ON STUDY TECHNICIAN Encounter Details Date Type Department Care Team Description 03/04/2021 Orders Only RST PCP [facility] Lois Lopez M.D. [address] [place] [phone] (Wo rk) Social History Tobacco [...] on filedocumented in this encounter Care Teams Forming Machine Upkeep Mechanic Relationship Specialty Start Date End Date Elsewhere, Pcp PCP - General Internal Medicine 11/26/19 documented as of this encounter
--- OUTSIDE RECORDS SUMMARY | 2022-02-10 13:24 | XMS_ITS | Encounter Summary ---
:1970 Author Organization [facility] Address [address] [place] [address] Care Team Providers Name Role Phone Unavailable Primary Care Provider Unavailable Encounter Details Date Type Department Care Team Description 02/04/2014 Hospital Encounter HX [facility] Geri Holt M.D. [address] [place] [address] (Wo rk) Social History Tobacco [...] tab(s), 1 Refill(s), Acute, Pharmacy: [facility] 2. Sinusitis NOS Ordered: albuterol, 2 puff(s), Inhalation, q4hr, PRN Shortness of breath / Wheezing, # 18 gm, 11 Refill(s), Maintenance, Pharmacy: [facility] azithromycin, 2 tablets on day 1, then 1 tablet on days 2-5, PO, As Directed, x 5 day(s), # 6 tab(s), 1 Refill(s), Acute, Pharmacy: [facility] Electronically Signed By: GERI HOLT MD On: 02/04/2014 09:58 AM Source: [facility] POWERCHART Document Id: [id number] documented in this encounter Nursing Notes Geri [...] will not help a viral infection. ?? [id number] Norman [facility], [address] [place] [address]. All rights reserved. This information is not intended as a substitute for professional medical care. Always follow your healthcare professional's instructions. This document has images extracted. Please consider using MinuteKey for all your patient education needs. Source: [facility] POWERCHART Document Id: [id number] documented in this encounter Miscellaneous Notes Miscellaneous - Geri Holt M.D. - 02/04/2014 9:59 AM CDT Ambulatory Patient Summary [facility] [address], [address] [place] [id number] Visit Information Name: JAYDA GRULLON [facility] Number: [id number] Current Date: 02/04/2014 09:59:33 Physicians Attending Provider: GERI HOLT MD Primary Care Provider: WILLEM SAEED RN, BRAZER FURNACE JAYDA GRULLON has been given the following [...] / Wheezing New Routed to [facility] [address] [address] azithromycin (Zithromax Z-Luis 250 mg oral tablet) 2 tablets on day 1, then 1 tablet on days 2-5, Oral, as directed x 5 day(s) New Routed to [facility] [address] [id number] ibuprofen (Advil) Oral, as needed Stop Taking [...] will not help a viral infection. ?? [phone] Norman [facility], [address] [place] [address], [place] [address]. All rights reserved. This information is not intended as a substitute for professional medical care. Always follow your healthcare professional's instructions. Your Goals/Additional instructions: This document has images extracted. Please consider using MinuteKey for all your patient education needs. Source: [facility] POWERCHART Document Id: [id number] Miscellaneous - Geri Holt M.D. - 02/04/2014 9:59 AM CDT Ambulatory Discharge Medication List [facility] [address] [place], [address] [place] [id number] Visit Information Name: JAYDA GRULLON [facility] Number: [id number] Visit Date: 02/04/2014 09:59:32 Attending Provider: GERI HOLT MD Primary Care Provider: WILLEM SAEED RN, BRAZER FURNACE JAYDA GRULLON has been given the following [...] / Wheezing New Routed to [facility] [address] [id number] azithromycin (Zithromax Z-Luis 250 mg oral tablet) 2 tablets on day 1, then 1 tablet on days 2-5, Oral, as directed x 5 day(s) [facility] [address] [id number] ibuprofen (Advil) Oral, as needed Stop Taking [...] MD Signed On:04-FEB-2014 09:59:16 Additional Information: Source: [facility] fflickCHART Document Id: [id number] Miscellaneous - Geri Holt M.D. - 02/04/2014 9:56 AM CDT Normal Results Letter 04 February 2014 JAYDA GRULLON [address] [address] [place] [id number] Dear JAYDA GRULLON, Jayda was seen by me in clinic today for bronchitis and sinusitis. Sincerely, GERI HOLT [address] [place] [address] Electronic Signature Electronically Signed By: GERI HOLT MD On: 04 February 2014 This document has images extracted. Source: [facility] fflickCHART Document Id: [id number] Electronically signed by Conversion, [facility] Nightclub Manager [id number] at 09/19/2016 2:05 AM CDT Miscellaneous - Conversion, Historical Provider Ser - 02/04/2014 9:23 AM CDT Adult Intake Man Intake/History Document Has Been Updated Adult Intake Man Intake/History Entered On: 02/04/2014 9:26 CDT Performed On: 02/04/2014 9:23 CDT by ARIES ALCALA CMA Intake Chief Complaint : Sinus symptoms since [...] Information Given By : Patient Languages : Australian Is Patient Female and 13-50 no hysterectomy : No ARIES ALCALA CMA - 02/04/2014 9:23 CDT Subjective Pain Symptoms : Yes ARIES ALCALA [facility] 02/04/2014 9:23 CDT Pain Pain Assessment Grid Pain 1 Location : Head Intensity : 8 ARIES ALCALA [facility] 02/04/2014 9:23 CDT Dependent Habits Tobacco Use/Currently Using : Yes Tobacco Use/Advised to Quit : Yes Exposure to Tobacco Smoke : Patient smokes Smoking Status : Current every day smoker ARIES ALCALA [facility] 02/04/2014 9:23 CDT Tobacco Use Grid Type : Cigarettes Cigarette Use Packs/Day : 0.5 ARIES ALCALA [facility] 02/04/2014 9:23 CDT Caffeine Use Grid Caffeine Use : Current Type : Soft drinks Frequency : Daily ARIES ALCALA [facility] 02/04/2014 9:23 CDT Recreational Drug Use Grid Drug Use : None ARIES ALCALA [facility] 02/04/2014 9:23 CDT [facility] Document Id: [id number] CDT!5 documented in this encounter Plan of Treatment Not on filedocumented as of this encounter Visit Diagnoses Not on filedocumented in this encounter
--- OUTSIDE RECORDS SUMMARY | 2022-02-10 13:24 | XMS_ITS | Encounter Summary ---
:1970 Author Organization [facility] Address [address] [place] [address] Care Team Providers Name Role Phone Isabelle Henderson APRN, C.N.P. Primary Care Provider [phone] Encounter Details Date Type Department Care Team Description 05/28/2017 Orders Only Department of Family Isabelle Henderson For Screening For Cardiovascular Disorders (Primary Dx); MedicineChuy APRN, C.N.P. Screening Examination Diabetes Mellitus; [facility], [address] Screening Mammogram Average Risk [facility] [address] [phone] [place], [place] (Work) [phone] Social History Tobacco Use [...] Patient documented in this encounter Care Teams Web Press Roll Tender Relationship Specialty Start Date End Date Isabelle Henderson APRN, C.N.P. PCP - General 10/05/16 08/17/17 documented as of this encounter
--- OUTSIDE RECORDS SUMMARY | 2022-02-10 13:24 | XMS_ITS | Encounter Summary ---
:1970 Author Organization [facility] Address [address] [place] [address] Care Team Providers Name Role Phone Mily Contreras APRN, C.N.P., D.N.P. Primary Care Provider Reason for Visit Reason Onset Date Comments Results 07/03/2018 Encounter Details Date Type Department Care Team Description 07/03/2018 Clinical Communication Division of Shayla Trujillo Rheumatology in Navi Ascencio R.N. [place], [place] [address] [place] [address] [address] [place] [address] [phone] Social History Tobacco Use Types Packs/Day Years [...] appointment with a local physical therapist in [place]. PLAN Disposition/Recommendation: self-care appropriate at this time . Education: patient/caller able to teach back Caller agreeable to plan of care: yes The following references were used: nursing clinical judgement Telephone Encounter - aNvi Trujillo R.N. - 07/03/2018 8:53 AM CDT [...] on filedocumented in this encounter Care Teams Field Crop Harvest Worker Relationship Specialty Start Date End Date Mily Contreras, GILBERT, C.N.P., PCP - General Family Medicine 03/22/19 D.N.P. [address] [place] [phone] documented as of this encounter
--- OUTSIDE RECORDS SUMMARY | 2022-02-10 13:24 | XMS_ITS | Encounter Summary ---
:1970 Author Organization [facility] Address [address] [place] [address] Care Team Providers Name Role Phone Mily Contreras APRN C.N.P., D.N.P. Primary Care Provider Encounter Details Date Type Department Care Team Description 06/27/2018 Procedure visit Division of Destiney Narvaez M .B.BCarineSCarine [address] [place] [phone] Polyarthritis; Rheumatology in Jhon Medina M.D. [address] [place] [address] Epicondylitis Medial Left; [place], [place] Epicondylitis Lateral Right [address] [place] [phone] Social History Tobacco Use Types Packs/Day Years Used Date Smoking Tobacco: Every Day Cigarettes 1.5 25 S tarted: 1985 Smokeless Tobacco: Never Alcohol Use Standard Drinks/Week Comments Yes 0 (1 standard drink = 0.6 oz pure alcoho l) Sex Assigned at Date Recorded Not on file documented as of this encounter Procedure Notes Jhon Medina M.D. - 06/27/2018 1:00 PM CSTAssociated Order(s): RHU NON- GUIDED ASPIRATION/INJECTION - LARGE JOINT Pre-Procedure Diagnose(s): Polyarthritis; Epicondylitis Medial Left; Epicondylitis Lateral Right Post-Procedure Diagnose(s): Polyarthritis; Epicondylitis Medial Left; Epicondylitis Lateral Right Right trochanteric bursa steroid injection Date/Time: 06/27/2018 1:05 PM Performed by: JHON MEDINA Authorized by: DESTINEY NARVAEZ Care team members present: Izabela Greco, Dr. Flako Zamora, Dr. Nany Paula (on floor) Real Estate Assessor utilized: procurement agent not needed Risks discussed with: patient Procedural [...] instructions, dressing careand follow-up with ordering provider D MECHANICAL METER TESTER documented in this encounter Plan of Treatment Not on filedocumented as of this encounter Procedures Procedure Name Priority Date/Time Associated Diagnosis Comme nts RHU NON-GUIDED Routine 06/27/2018 1:00 PM Polyarthritis Results for this ASPIRATION/INJECTIO FIELD MECHANICAL METER TESTER Epicondylitis Medial procedure are in N - LARGE JOINT Left the results Epicondylitis section. Lateral Right documented in this encounter Results Non-Guided Aspiration/Injection - Large Joint (06/27/2018 1:00 PM FIELD MECHANICAL METER TESTER) Narrative Jhon Medina M.D. - 06/27/2018 1:00 PM FIELD MECHANICAL METER TESTER Jhon Medina M.D. ? 06/27/2018 ??1:16 PM Right trochanteric bursa steroid injecti on Date/Time: 06/27/2018 1:05 PM Performed by: JHON MEDINA Authorized by: DESTINEY NARVAEZ Care team members present: ??Izabela Greco, Dr. Flako Zamora, Dr. Nany Paula (on floor) Real Estate Assessor utilized: procurement agent not ne eded ?? Risks discussed with: [...] injection 80 mg Given 06/27/2018 1:05 PM FIELD MECHANICAL METER TESTER 80 mg (DEPO-Medrol) 80 mg, intra-articular, One-Time Injection, Starting on Alisha 06/27/18 at 1305, For 1 dose documented in this encounter Care Teams Bracelet Former Relationship Specialty Start Date End Date Mily Contreras, GILBERT, C.N.P., PCP - General Family Medicine 03/22/19 D.N.P. [address] [place] [phone] documented as of this encounter
--- OUTSIDE RECORDS SUMMARY | 2022-02-10 13:24 | XMS_ITS | Encounter Summary ---
:1970 Author Organization [facility] Address [address] [place] [address] Care Team Providers Name Role Phone Mily Contreras APRN, C.N.P., D.N.P. Primary Care Provider Encounter Details Date Type Department Care Team Description 06/24/2018 Hospital Encounter Department of Muriel, Liang mcneill; Radiology, Emerita Cabello, Epicondylit is Medial Left; Building, in [facility] Epicondylitis Lateral Right [place], [place] [address] [facility] [address] [place] [address] [phone] Social History Tobacco Use Types Packs/Day Years [...] this BILATERAL 3 VIEWS (most inpatients AM ADVERTISING REPRESENTATIVE Epicondylitis proce dure are in and all Medial Left the results outpatients) Epicondylitis section. Lateral Right documented in this encounter Results DX Foot Ankle Bilateral 3 Views (06/24/2018 10:15 AM ADVERTISING REPRESENTATIVE) Anatomical Region Laterality Modality Lower Extremity, Foot, Ankle, Musculoskeletal RST LOS, Bilat eral Digital Radiography Musculoskeletal ARZ LOS, Muskuloskeletal FLA LOS Specimen (Source) Anatomical Collection Method Collection Time Re ceived Time Location / / Volume Laterality 06/24/2018 10:27 AM ADVERTISING REPRESENTATIVE Impressions 06/24/2018 10:30 AM ADVERTISING REPRESENTATIVE IMPRESSION: ??Corticated ossicles adjacent to the medial [...] the 1st metatarsals. Narrative 06/24/2018 10:30 AM ADVERTISING REPRESENTATIVE EXAM: ??DX FOOT ANKLE BILATERAL 3 VIEWS [...] Right documented in this encounter Care Teams Paper Sample Clerk Relationship Specialty Start Date End Date Mily Contreras APRN, C.N.P., PCP - General Family Medicine 03/22/19 D.N.P. [address] [place] [address] documented as of this encounter
--- OUTSIDE RECORDS SUMMARY | 2022-02-10 13:24 | XMS_ITS | Encounter Summary ---
:1970 Author Organization [facility] Address [address] [place] [address] Care Team Providers Name Role Phone Elsewhere, Pcp Primary Care Provider Unavailable Encounter Details Date Type Department Care Team Description 03/30/2020 [facility] - Julisa Vann [place] M.D. [address] [place] [address] [place], [place] [phone] (Wo rk) Social History Tobacco Use Types [...] documented as of this encounter Care Teams Post Tensioning Ironworker Relationship Specialty Start Date End Date Elsewhere, Pcp PCP - General Internal Medicine 11/26/19 documented as of this encounter
--- OUTSIDE RECORDS SUMMARY | 2022-02-10 13:24 | XMS_ITS | Encounter Summary ---
:1970 Author Organization [facility] Address [address] [place] [address] Care Team Providers Name Role Phone Isabelle Henderson APRN, C.N.P. Primary Care Provider [phone] Encounter Details Date Type Department Care Team Description 07/18/2016 - Hospital Encounter [facility] Marjan Velarde 12/05/2016 HITESH Ascencio, C.N.P. [address] [place] [address] (Wo rk) Social History Tobacco Use Types [...] Davis, P.T. - 07/18/2016 12:00 AM CDT [id number] PHYSIAL THERAPY INITIAL EVALUATION REFERRING PHYSICIAN Silvana [...] again. 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 She is moving [...] DAVIS On: 07/27/2016 06:46 AM Source: [facility] TAMMIESDOLBEINGE Document Id: [id number] documented in this encounter Miscellaneous Notes Miscellaneous - Conversion, Historical Provider Ser - 07/25/2016 3:44 PM CDT Coding Summary-Paper Based CODING DATE: 07/25/2016 FINAL [facility] STATUS: Still Patient/Expected to Rtn Oupt [facility] PAYOR: [employer] One ADMIT DX: REASON FOR [...] Date Saved: 07/25/2016 03:44 pm Source: [facility] [employer] Document Id: [id number] documented in this encounter Plan of Treatment Not on filedocumented as of this encounter Visit Diagnoses Not on filedocumented in this encounter Care Teams Magazine Worker Relationship Specialty Start Date End Date Isabelle Henderson APRN, C.N.P. PCP - General 10/05/16 08/17/17 documented as of this encounter
--- OUTSIDE RECORDS SUMMARY | 2022-02-10 13:24 | XMS_ITS | Encounter Summary ---
:1970 Author Organization [facility] Address [address] [place] [address] Care Team Providers Name Role Phone Elsewhere, Pcp Primary Care Provider Unavailable Reason for Visit Reason Onset Date Comments Testing For Upper Respiratory Virus Symptoms 07/07/2020 Encounter Details Date Type Department Care Team Description 07/07/2020 External Outreach Department of Employer Based , Covid Serology Testing Contact With And Family Medicine, Flako Montgomery P.A.-C. [address] [place] [address] (Suspected) Exposure [facility], in To COVID -19 (Primary [place], [place] Dx) [address] [place] [address] Social History Tobacco Use Types [...] RNA, V Symptomatic (07/07/2020 11:06 AM CDT) [facility] Method Time Signature SARS-CoV-2 Swab, 07/07/2020 [...] pe rformed using the Aptima SARS-CoV-2 assay ([employer] on the Mezzobits tem under emergency use authorization (EUA) by the U.S. Food and Drug Administ ration. Fact sheets for this EUA assay can be fo und at the following links: For Healthcare Providers: https://www.fd a.gov/media/083654/download For Patients: https://www.fda.gov/media/ 722482/download Specimen Anatomical Collection Method Collection Time Receive d Time (Source) Location / / Volume Laterality Varies 07/07/2020 11:06 07/07/2020 3:20 (Nasopharynx) AM CDT PM CDT Flako Montgomery P.A.-C. LAB MICROBIOLOGY - GENERAL O RDERAKIMBERLEE Performing Organization Address City/State/ZIP Code Phon e Number [facility] [address] [place] [phone] [facility] [place] [address] System [address] documented in this encounter Visit Diagnoses Diagnosis Contact With And (Suspected) Exposure To COVID-19 - Primary documented in this encounter Additional Health Concerns Infection Onset Date Last Indicated Resolved Time COVID19 Pending 07/07/2020 07/07/2020 07/07/2020 9:46 PM CDT documented as of this encounter Care Teams Director Biologics Relationship Specialty Start Date End Date Elsewhere, Pcp PCP - General Internal Medicine 11/26/19 documented as of this encounter
--- OUTSIDE RECORDS SUMMARY | 2022-02-10 13:24 | XMS_ITS | Encounter Summary ---
:1970 Author Organization [facility] Address [address] [place] [address] Care Team Providers Name Role Phone Mily Contreras APRN C.N.P., D.N.P. Primary Care Provider Reason for Visit Reason Comments New Patient Outpatient (Routine) - Closed Specialty Diagnoses / Procedures Referred By Contact Refer red To Contact Rheumatology Diagnoses Polyarthritis Silvana Velarde, C.N.P. [address] [place] [address] 02 Referral ID Status Reason Start Date Expiration Date Visits Requ ested Visits Authorized [id number] Closed 03/12/2018 03/12/2019 1 1 Encounter Details Date Type Department Care Team Description 06/24/2018 Comprehensive Visit Division of [place] Webb M.D., Ph.D. Epicondylitis Medial Left (Primary Dx); Rheumatology in Destiney Narvaez M.B.BCarineSCarine [address] [place] [address] Polyarthritis; [place], [place] Epicondylitis Lateral Right [address] [place] [phone] Social History Tobacco Use Types Packs/Day Years [...] Comments Blood Pressure 155/94 06/24/2018 8:08 AM SAFETY AND HEALTH MANAGER Pulse 69 06/24/2018 8:08 AM SAFETY AND HEALTH MANAGER Temperature 36.7 ??C (98.1 ??F) 06/24/2018 8:08 AM SAFETY AND HEALTH MANAGER Respiratory Rate - - Oxygen Saturation - - Inhaled Oxygen Concentration - - Weight 98.2 kg (216 lb 7.9 oz) 06/24/2018 8:08 AM SAFETY AND HEALTH MANAGER Height 161.1 cm (5' 3.43) 06/24/2018 8:08 AM SAFETY AND HEALTH MANAGER Body Mass Index 37.84 06/24/2018 8:08 AM SAFETY AND HEALTH MANAGER documented in this encounter Consult Notes Destiney [...] It was a pleasure seeing her today. TY AND HEALTH MANAGER documented in this encounter Plan of Treatment Not on filedocumented as of this encounter Results Non-Guided Aspiration/Injection - Large Joint (06/27/2018 1:00 PM SAFETY AND HEALTH MANAGER) Narrative Cortez Medina M.D. - 06/27/2018 1:00 PM SAFETY AND HEALTH MANAGER Cortez Medina M.D. ? 06/27/2018 ??1:16 PM Right trochanteric bursa steroid injecti on Date/Time: 06/27/2018 1:05 PM Performed by: CORTEZ MEDINA Authorized by: DESTINEY NARVAEZ Care team members present: ??Izabela Greco, Dr. Flako Zamora, Dr. Nany Paula (on floor) Alarm Installer utilized: weed cooking operator not ne eded ?? Risks discussed with: [...] Ankle Bilateral 3 Views (06/24/2018 10:15 AM SAFETY AND HEALTH MANAGER) Anatomical Region Laterality Modality Lower Extremity, Foot, Ankle, Musculoskeletal RST LOS, Bilat eral Digital Radiography Musculoskeletal ARZ LOS, Muskuloskeletal FLA LOS Specimen (Source) Anatomical Collection Method Collection Time Re ceived Time Location / / Volume Laterality 06/24/2018 10:27 AM SAFETY AND HEALTH MANAGER Impressions 06/24/2018 10:30 AM SAFETY AND HEALTH MANAGER IMPRESSION: ??Corticated ossicles adjacent to the medial [...] the 1st metatarsals. Narrative 06/24/2018 10:30 AM SAFETY AND HEALTH MANAGER EXAM: ??DX FOOT ANKLE BILATERAL 3 VIEWS [...] ads of the 1st metatarsals. Destiney Peña IMLionel DIAGNOSTIC IMAGING PROCE DURES DX Elbow Bilateral 2 Views (06/24/2018 10:15 AM SAFETY AND HEALTH MANAGER) Anatomical Region Laterality Modality Upper Extremity, Elbow, Musculoskeletal RST LOS, Bilateral Digital Radiography Musculoskeletal ARZ LOS, Muskuloskeletal FLA LOS Specimen (Source) Anatomical Collection Method Collection Time Re ceived Time Location / / Volume Laterality 06/24/2018 10:25 AM SAFETY AND HEALTH MANAGER Impressions 06/24/2018 10:27 AM SAFETY AND HEALTH MANAGER IMPRESSION: ??Heterotopic ossification adjacent to the medial and lateral epicondyles bilaterally. Medial hypertro phic changes right elbow. No joint effusions or periarticular erosion. Narrative 06/24/2018 10:27 AM SAFETY AND HEALTH MANAGER EXAM: ??DX ELBOW BILATERAL 2 VIEWS Procedure Note Fay Baptiste M.D. - 06/24/2018For matting of this note might be different from the original. EXAM: DX ELBOW BILATERAL 2 VIEWS IMPRESSION: Heterotopic ossification adj acent to the medial and lateral epicondyles bilaterally. Medial hypertro phic changes right elbow. No joint effusions or periarticular erosion. Destiney HernandezSCarine LAMG DIAGNOSTIC IMAGING PROCE DURES DX Hand Bilateral 3 Views (06/24/2018 10:15 AM SAFETY AND HEALTH MANAGER) Anatomical Region Laterality Modality Upper Extremity, Hand, Musculoskeletal RST LOS, Bilateral Digital Radiography Musculoskeletal ARZ LOS, Muskuloskeletal FLA LOS Specimen (Source) Anatomical Collection Method Collection Time Re ceived Time Location / / Volume Laterality 06/24/2018 10:24 AM SAFETY AND HEALTH MANAGER Impressions 06/24/2018 10:25 AM SAFETY AND HEALTH MANAGER IMPRESSION: ??Mild scattered degenerative changes, greatest at the DIP joints. No periarticular erosions. Mild soft tissue swelling over the MCP joints. Narrative 06/24/2018 10:25 AM SAFETY AND HEALTH MANAGER EXAM: ??DX HAND BILATERAL 3 VIEWS Procedure [...] Right documented in this encounter Care Teams Credit Correspondence Clerk Relationship Specialty Start Date End Date Mily Contreras APRN, C.N.P., PCP - General Family Medicine 03/22/19 D.N.P. [address] [place] [address] documented as of this encounter
--- OUTSIDE RECORDS SUMMARY | 2022-02-10 13:24 | XMS_ITS | Encounter Summary ---
:1970 Author Organization [facility] Address [address] [place] [address] Care Team Providers Name Role Phone Elsewhere, Pcp Primary Care Provider Unavailable Reason for Referral Outpatient (Routine) - Closed Specialty Diagnoses / Procedures Referred By Contact Refer red To Contact Diagnoses Occupational Health Examination Teresa Henderson M.D., [facility] Procedures PVM OCC Hearing screen M.P.H. [address] [place] [address] Referral ID Status Reason Start Date Expiration Date Visits Requ ested Visits Authorized [id number] Closed 09/23/2020 09/23/2021 1 1 Reason for Visit Reason Comments Hearing Screening [facility] Encounter Details Date Type Department Care Team Description 09/23/2020 Clinical Support Department of [facility] Henderson [facility] Occupational Medicine Saumya Ascencio, M .P.H. Examination ([facility] [place], [address] [facility] [place], [place] [address] [facility] [address] [place], [place] [phone] [address] (Work) [phone] Social History Tobacco Use Types Packs/Day Years Used Date Smoking Tobacco: Every Day Cigarettes 1.5 25 S tarted: 1985 Smokeless Tobacco: Never Alcohol Use Standard Drinks/Week Comments Yes 0 (1 standard drink = 0.6 oz pure alcoho l) Sex Assigned at Date Recorded Not on file documented as of this encounter Progress Notes Beverly Nascimento, L.P.N. - 09/23/2020 2:15 PM CDT Hearing Screening [...] y documented in this encounter Care Teams Nail Specialist Relationship Specialty Start Date End Date Elsewhere, Pcp PCP - General Internal Medicine 11/26/19 documented as of this encounter
--- OUTSIDE RECORDS SUMMARY | 2022-02-10 13:24 | XMS_ITS | Encounter Summary ---
:1970 Author Organization [facility] Address [address] [place] [address] Care Team Providers Name Role Phone Unavailable Primary Care Provider Unavailable Encounter Details Date Type Department Care Team Description 07/13/2014 Hospital Encounter HX [facility] Otilia Johnson, WILDLIFE POLICY PROFESSIONAL, C.N.P. [address] [place], [place] [address] (Wo rk) Social History [...] Johnson, R.N. - 07/13/2014 9:20 AM CDT [id number] CHIEF COMPLAINT/REASON FOR VISIT Pre-employment physical. HISTORY OF PRESENT ILLNESS Candy is a very pleasant 44-year-old female who comes into the clinic today requesting a pre-employment physical for her new position at [employer]. She states she worked at [employer] many years ago and is excited to return to her previous employer. She has been recently working at [employer] and [employer] have more regular consistent hours. She has no new medical concerns today. She denies any acute illnesses. She states she already completed her physical therapy evaluation as well as her urine drugscreen. She has no other concerns today. MEDICATIONS No home medications. ALLERGIES Acetaminophen/hydrocortisone combination and Demerol HCI. PHYSICAL EXAMINATION Please see EMR for [employer] preemployment physical form. IMPRESSION/REPORT/PLAN Preemployment exam. PLAN: Candy is cleared for employment at [employer] pending the results of her urine drug test. She isplanning to start employment sometime the first part of July 2014. 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 The pre-employment physical form as well as the physical therapy evaluation form were faxed to [employer].All questions were answered. She left in no acute distress. Ready to learn. No apparent learning barriers were identified. Learning preferences include listening. Explained diagnosis and treatment plan. Patient/Child/Caregiver expressed understanding of the content. Isabelle Johnson NTung/mikey Electronically Signed By: ISABELLE JOHNSON MOTOR AND GENERATOR BRUSH MAKER On: 07/13/2014 09:41 PM Modified by and Electronically Signed by: ISABELLE JOHNSON MOTOR AND GENERATOR BRUSH MAKER On: 07/13/2014 09:41 PM Source: [facility] MHSDOLBEYNONRADSYS Document Id: [id number] documented in this encounter Miscellaneous Notes Miscellaneous - Martinez Saenz L.P.NCarine - 07/13/2014 10:30 AM CDT Health Assessment Health Assessment Entered On: 07/13/2014 10:30 CDT Performed On: 07/13/2014 10:30 CDT by MARTINEZ SANEZ LPN Health Assessment Complete Health Assessment Complete [...] : Current every day smoker MARTINEZ SAENZ [employer] SI[employer] AND SORTER - 07/13/2014 10:30 CDT Tobacco Use Grid Type : Cigarettes Cigarette Use Packs/Day : 0.5 MARTINEZ SAENZ KUMAR - 07/13/2014 10:30 CDT Caffeine Use Grid Caffeine Use : Current Type : Soft drinks Frequency : Daily MARTINEZ SAENZ KUMAR - 07/13/2014 10:30 CDT Recreational Drug Use Grid Drug Use : None MARTINEZ SAENZ KUMAR - 07/13/2014 10:30 CDT Psychosocial Domestic Abuse Concerns : None Anabaptist Preference : Gnosticist: Judaism ROSARIO MARTINEZ Padmini HEATH - 07/13/2014 10:30 CDT Advance Directive Advanced Directives : Yes Advance Directive Type : Living will Advance Directive Location : Scanned into EMR ROSARIO MARTINEZ [place] LPN - 07/13/2014 10:30 CDT Educ Needs Learning Style Preference Adult Grid Patient : None Family : None ROSARIO MARTINEZ Padmini HEATH - 07/13/2014 10:30 CDT Source: [facility] Document Id: [id number] CDT!36 Miscellaneous - Martinez Saenz L.P.N. - 07/13/2014 10:30 AM CDT Meaningful Use Influenza Exclusion Meaningful Use Influenza Exclusion Entered On: 07/13/2014 10:30 CDT Performed On: 07/13/2014 10:30 CDT by MARTINEZ SAENZ LPN Influenza Vaccine Exclusion Influenza Vaccine Exclusion : Patient declined MARTINEZ SAENZ LPN - 07/13/2014 10:30 CDT Source: [facility] POWERCHART Document Id: [id number] CDT!3 Miscellaneous - Martinez Saenz L.P.N. - 07/13/2014 10:24 AM CDT Adult Bee Worker Intake/History Adult Bee Worker Intake/History Entered On: 07/13/2014 10:29 CDT Performed [...] Information Given By : Patient Languages : Beninese Is Patient Female and 13-50 no hysterectomy [...] : Soft drinks Frequency : Daily MARTINEZ SAEZN LPN - 07/13/2014 10:24 CDT Recreational Drug Use Grid Drug Use : None MARTINEZ SAENZ LPN - 07/13/2014 10:24 CDT ID Screen Drug Resistant Organism : No Travel Within Last 21 Days : No Contact with someone with Ebola : No MARTINEZ SAENZ LPN - 07/13/2014 10:24 CDT Source: [facility] [employer] Document Id: [id number] CDT!41 documented in this encounter Plan of Treatment Not on filedocumented as of this encounter Visit Diagnoses Not on filedocumented in this encounter
--- OUTSIDE RECORDS SUMMARY | 2022-02-10 13:24 | XMS_ITS | Encounter Summary ---
:[address] [facility] Address [address] [place] [address] Care Team Providers Name Role Phone Elsewhere, Pcp Primary Care Provider Unavailable Encounter Details Date Type Department Care Team Description 08/10/2020 Hospital Encounter Department of Mily Contreras Screen ing Mammogram Radiology in [facility], Breast [place], [place] C.N.P., D.N.P. [address] [phone] [phone] Social History Tobacco Use Types Packs/Day Years [...] Procedure Name Priority Date/Time Associated Comments Diagnosis BI BREAST SCREENING RAD - Routine 08/10/2020 7:46 Screening Resu lts for BILATERAL WITH (most inpatients AM CDT Mammogram Breast this procedure TOMOSYNTHESIS and all Cancer are in the outpatients) results section. documented in this encounter Results BI Breast Screening Bilateral with Tomosynthesis (08/10/2020 7:46 AM CDT) Anatomical Region Laterality Modality Breast, Breast Imaging RST LOS, Breast Imaging ARZ LOS, [place] Bilateral Mammography Imaging FLA LOS Specimen (Source) Anatomical Collection Method Collection Time Re ceived Time Location / / Volume Laterality 08/10/2020 8:52 AM CDT Impressions 08/10/2020 8:55 AM CDT Negative. RECOMMENDATION: ??Annual Screening Mammo gram ASSESSMENT: ??BI-RADS: 1: Negative. Narrative 08/10/2020 8:55 AM CDT EXAM: ??BI BREAST SCREENING BILATERAL WITH TOMOSYNTHESIS Current study was evaluated with a Somera Communicationsu ter Aided Detection (CAD) system. INDICATION: ??Screening [...] Screening Mammogr am ASSESSMENT: BI-RADS: 1: Negative. Mily Contreras APRN, C.N.P., D.N.P. IMG BI PROCEDURES documented in this encounter Visit Diagnoses Diagnosis Screening Mammogram Breast Cancer documented in this encounter Care Teams Milieu Manager Relationship Specialty Start Date End Date Elsewhere, Pcp PCP - General Internal Medicine 11/26/19 documented as of this encounter
--- OUTSIDE RECORDS SUMMARY | 2022-02-10 13:24 | XMS_ITS | Encounter Summary ---
:1970 Author Organization [facility] Address [address] [place] [address] Care Team Providers Name Role Phone Mily [...] on filedocumented in this encounter Care Teams Yard Assistant Relationship Specialty Start Date End Date Mily Contreras APRN, C.N.P., PCP - General Family Medicine 03/22/19 D.N.P. [address] [place] [phone] documented as of this encounter
--- OUTSIDE RECORDS SUMMARY | 2022-02-10 13:24 | XMS_ITS | Encounter Summary ---
:1970 Author Organization [facility] Address [address] [place] [address] Care Team Providers Name Role Phone Unavailable Primary Care Provider Unavailable Encounter Details Date Type Department Care Team Description 06/01/2014 Hospital Encounter [facility] Manuela Brewer PCairneA.SiobhanC. Social History Tobacco Use Types Packs/Day Years [...] 161 cm (5' 3.39) 06/01/2014 8:02 AM RN NEUROLOGY Body Mass Index - - documented in this encounter Medications at Time of Discharge Medication Sig Dispensed Refills Start Date End Date IBUPROFEN ORAL Take by mouth as needed. 0 011 documented as of this encounter Consult Notes Manuela Brewer - 06/01/2014 7:58 AM CST [id number] Ms. Grullon is a very pleasant 43-year-old [...] half that time was spent in direct hnxx-zv-gqpy counseling in educating the patient about her condition as well treatment options available to her. Manuela Brewer P.A.-C./mikey Electronically Signed By: MANUELA BREWER PA-C On: 06/04/2014 02:32 PM Source: [facility] MHSDOLBEYNONRADSYS Document Id: [id number] NEUROLOGY documented in this encounter Miscellaneous Notes Miscellaneous - Manuela Brewer - 06/01/2014 12:55 PM CST Ambulatory Patient Summary [facility] [address], [address] [place], [place] [phone] Visit Information Name: CANDY GRULLON [facility] Number: [id number] Current Date: 06/01/2014 12:55:10 Physicians Attending Provider: MANUELA BREWER PA-C Primary Care Provider: WILLEM SAEED RN, CHIEF WELLNESS OFFICER CANDY GRULLON has been given the following [...] Appointments Date Time Location Provider 06/08/2014 08:45 [facility] Manuela Mcdaniel PA-C 06/17/2014 09:45 [facility] Manuela Mcdaniel PA-C Attention: Contact your local Clinic if further appointment detail needed. Your Goals/Additional instructions: Source: [facility] POWERCHART Document Id: [id number] NEUROLOGY Miscellaneous - Manuela Brewer - 06/01/2014 12:55 PM CST Ambulatory Discharge Medication List [facility] [address], [address] [place], [place] [phone] Visit Information Name: CANDY GRULLON [facility] Number: [id number] Visit Date: 06/01/2014 12:55:09 Attending Provider: MANUELA BREWER PA-C Primary Care Provider: WILLEM SAEED RN, CHIEF WELLNESS OFFICER CANDY GRULLON has been given the following [...] PA-C Signed On:01-JUN-2014 12:55:07 Additional Information: Source: [facility] POWERCHART Document Id: [id number] NEUROLOGY Miscellaneous - Magda Barrera L.P.N. - 06/01/2014 8:02 AM CST Adult Storm Sash Maker Intake/History Adult Storm Sash Maker Intake/History Entered On: 06/01/2014 8:04 RN NEUROLOGY Performed On: 06/01/2014 8:02 RN NEUROLOGY by MAGDA BARRERA LPN Intake Chief Complaint : Patient here for recheck on left knee, had an Left knee arthroscopy done 03-19-12,has had pain since last November, no known injury, pain 12/31 Height : 161 cm(Converted to: 5 ft 3 inch(es), 63 inch(es)) MAGDA BARRERA LPN - 06/01/2014 8:02 RN NEUROLOGY General Info Information Given By : Patient Preferred Communication Mode : Verbal Languages : Gambian Is Patient Female and 13-50 no hysterectomy : No MAGDA BARRERA LPN - 06/01/2014 8:02 RN NEUROLOGY Subjective Pain Symptoms : Yes MAGDA BARRERA LPN 06/01/2014 8:02 RN NEUROLOGY Pain Scale Pain Scale Verbal 0-10 : Open MAGDA BARRERA LPN 06/01/2014 8:02 RN NEUROLOGY Pain Pain Assessment Grid Pain 1 Location : Knee Laterality : Left Intensity : 9 MAGDA BARRERA LPN 06/01/2014 8:02 RN NEUROLOGY Dependent Habits Tobacco Use/Currently Using : Yes Exposure to Tobacco Smoke : Patient smokes Smoking Status : Current every day smoker MAGDA BARRERA LPN 06/01/2014 8:02 RN NEUROLOGY Tobacco Use Grid Type : Cigarettes Cigarette Use Packs/Day : 0.5 MAGDA BARRERA LPN 06/01/2014 8:02 RN NEUROLOGY Caffeine Use Grid Caffeine Use : Current Type : Soft drinks Frequency : Daily MAGDA BARRERA LPN 06/01/2014 8:02 RN NEUROLOGY Recreational Drug Use Grid Drug Use : None MAGDA BARRERA LPN 06/01/2014 8:02 RN NEUROLOGY ID Screen Drug Resistant Organism : No Travel Within Last 21 Days : No MAGDA BARRERA LPN 06/01/2014 8:02 RN NEUROLOGY Source: [place] Document Id: [id number] RN NEUROLOGY!38 NEUROLOGY documented in this encounter Plan of Treatment Not on filedocumented as of this encounter Visit Diagnoses Not on filedocumented in this encounter
--- OUTSIDE RECORDS SUMMARY | 2022-02-10 13:24 | XMS_ITS | Encounter Summary ---
:1970 Author Organization [facility] Address [address] [place] [address] Care Team Providers Name Role Phone Unavailable Primary Care Provider Unavailable Encounter Details Date Type Department Care Team Description 02/09/2014 Hospital Encounter [facility]X [facility] Jeffrey Jenkins M.D., M.P.H. [address] [place] [address] (Wo rk) Social History Tobacco [...] Jenkins M.D. - 02/09/2014 8:38 AM CDT [id number] CHIEF COMPLAINT/REASON FOR VISIT Sinus symptoms. HISTORY [...] JENKINS MD On: 02/11/2014 09:44 AM Source: [facility] MHSDOLBEYNONRADSYS Document Id: [id number] documented in this encounter Nursing Notes Sola [...] MCGOVERN LPN - 02/09/2014 9:09 CDT Source: [facility] POWERCHART Document Id: [id number] CDT!3 documented in this encounter Miscellaneous Notes Miscellaneous - Vickie Gloria L.PCarineNCarine - 02/09/2014 1:50 PM CDT Normal Results Letter 09 February 2014 CANDY GRULLON [address] [id number] Dear CANDY GRULLON, I am pleased to [...] 2014 This document has images extracted. Source: [facility] TabbloCHART Document Id: [id number] Electronically signed by Conversion, [facility] [employer] Principal [id number] at 09/18/2016 11:31 PM CDT Teresa Torres [...] 9:36 Radiology XR Chest 2 Views Source: [facility] Serometrix Document Id: [id number] Electronically signed by Conversion, [facility] [employer] Principal [id number] at 09/18/2016 11:31 PM CDT Abbeycellkatie - Teresa Jenkins M.D. - 02/09/2014 10:53 AM CDT Ambulatory Patient Summary [address] [place] [phone] Visit Information Name: CANDY GRULLON [facility] Number: [id number] Current Date: 02/09/2014 10:53:21 Physicians Attending Provider: TERESA JENKINS MD Primary Care Provider: WILLEM SAEED RN, RADIO TOWER TECHNICIAN CANDY GRULLON has been given the following [...] day x 5 day(s) New Routed to [address] [address] * You have let us know that [...] needed. Your Goals/Additional instructions: Source: [facility] POWERCHART Document Id: [id number] Miscellaneous - Teresa Jenkins M.D. - 02/09/2014 10:53 AM CDT Ambulatory Discharge Medication List [facility] [address], [address] [place] [phone] Visit Information Name: CANDY GRULLON [facility] Number: [id number] Visit Date: 02/09/2014 10:53:20 Attending Provider: TERESA JENKINS MD Primary Care Provider: WILLEM SAEED RN, RADIO TOWER TECHNICIAN CANDY GRULLON has been given the following [...] day x 5 day(s) [facility] [address] [address] * You have let us know that [...] MD Signed On:09-FEB-2014 10:53:12 Additional Information: Source: [facility] POWERCHART Document Id: [id number] Miscellaneous - Sola Mcgovern L.P.N. - 02/09/2014 9:07 AM CDT Adult Accounting Manager Assistant Controller Intake/History Adult Accounting Manager Assistant Controller Intake/History Entered On: 02/09/2014 9:09 CDT Performed [...] Information Given By : Patient Languages : Dominican Is Patient Female and 13-50 no hysterectomy : No SOLA MCGOVERN LPN - 02/09/2014 9:07 CDT Subjective Pain Symptoms : Yes Respiratory Symptoms : Cough, Wheezing SOLA MCGOVERN LPN - 02/09/2014 9:07 CDT Pain Pain Assessment Grid Pain 1 Location : Chest (Comment: From coughing [SOLA MCGOVERN LPN - 02/09/2014 9:07 CDT] ) Laterality : Bilateral Intensity : 8 SOLA MCGOVERN LPN - 02/09/2014 9:07 CDT Dependent Habits Tobacco Use/Currently Using : Yes Exposure to Tobacco Smoke : Patient smokes Smoking Status : Current every day smoker SOLA MCGOVERN LPN - 02/09/2014 9:07 CDT Tobacco Use Grid Type : Cigarettes Cigarette Use Packs/Day : 0.5 SOLA MCGOVERN LPN - 02/09/2014 9:07 CDT Caffeine Use Grid Caffeine Use : Current Type : Soft drinks Frequency : Daily SOLA MCGOVERN [facility] - 02/09/2014 9:07 CDT Recreational Drug Use Grid Drug Use : None SOLA MCGOVERN [facility] - 02/09/2014 9:07 CDT Source: [employer] Document Id: [id number] CDT!47 documented in this encounter Plan of Treatment Not on filedocumented as of this encounter Visit Diagnoses Not on filedocumented in this encounter
--- OUTSIDE RECORDS SUMMARY | 2022-02-10 13:25 | XMS_ITS | Encounter Summary ---
:1970 Author Organization [facility] Address [address] [place] [address] Care Team Providers Name Role Phone Unavailable Primary Care Provider Unavailable Encounter Details Date Type Department Care Team Description 02/07/2012 Hospital Encounter HX [facility] Jabari Benton M.D. [address] [place] [phone] (Wo rk) Social History Tobacco Use [...] Benton M.D. - 02/07/2012 8:53 AM CDT [id number] IMPRESSION/REPORT/PLAN Knee effusion with knee pain, etiology [...] BENTON MD On: 02/12/2012 12:48 PM Source: [facility] MHSDOLBEYNONRADSYS Document Id: [id number] documented in this encounter Miscellaneous Notes Miscellaneous - Jhon Benton M.D. - 02/08/2012 12:50 AM CDT Ambulatory Patient Summary [address] [address] Visit Information Name: CANDY CORADO Current Date: 02/08/2012 00:50:38 Physicians Attending Provider: JHON BENTON MD Primary Care Provider: WILLEM SAEED RN, SPEEDOMETER INSPECTOR Your Medications Here is a list [...] No Appointments found Your Goals/Additional instructions: Source: [facility] POWERCHART Document Id: [id number] Miscellaneous - Jhon Benton M.D. - 02/08/2012 12:50 AM CDT Ambulatory Depart Summary [address] [address] Visit Information Name: CANDY CORADO Visit Date: 02/08/2012 00:50:38 Attending Provider: JHON BENTON MD Primary Care Provider: WILLEM SAEED RN, SPEEDOMETER INSPECTOR CANDY CORADO has been given the following [...] clarification. Additional Information: Yes - . Source[facility] Document Id: [id number] Martin - Jhon Benton M.D. - 02/07/2012 [...] BENTON MD - 02/07/2012 10:43 CDT Source: [facility] Document Id: [id number] Martin - Johnnie Sher, L.P.N. - 02/07/2012 8:59 AM CDT Adult Swatch Maker Intake/History Adult Swatch Maker Intake/History Entered On: 02/07/2012 9:05 CDT Performed On: 02/07/2012 8:59 CDT by JOHNNIE SHER TAX ECONOMIST Intake Chief Complaint : Hurt left knee [...] Dosing Weight Clinic : 96.20kg JOHNNIE SHER LPN - 02/07/2012 8:59 CDT Subjective Pain Symptoms [...] CDT Alcohol Use : Yes JOHNNIE SHER LPN - 02/07/2012 8:59 CDT Caffeine Use Grid [...] DAIGLE LPN;Reviewed Date: 07/26/2011 10:34 CDT Source: [facility]onianCHART Document Id: [id number] documented in this encounter Plan of Treatment Not on filedocumented as of this encounter Visit Diagnoses Not on filedocumented in this encounter
--- OUTSIDE RECORDS SUMMARY | 2022-02-10 13:25 | XMS_ITS | Encounter Summary ---
:1970 Author Organization [facility] Address [address] [place] [address] Care Team Providers Name Role Phone Unavailable Primary Care Provider Unavailable Encounter Details Date Type Department Care Team Description 04/30/2012 Hospital Encounter HX [facility] ME April Dwyer, N.P. [address] [place] [phone] (Wo rk) Social History Tobacco Use Types Packs/Day Years Used Date Smoking Tobacco: Never Assessed Sex Assigned at Date Recorded Not on file documented as of this encounter Last Filed Vital Signs Vital Sign Reading Time Taken Comments Blood Pressure 120/76 04/30/2012 7:59 AM AUTOMOBILE LEASING SUPERVISOR Pulse 76 04/30/2012 7:59 AM AUTOMOBILE LEASING SUPERVISOR Temperature - - Respiratory Rate 16 04/30/2012 7:59 AM AUTOMOBILE LEASING SUPERVISOR Oxygen Saturation - - Inhaled Oxygen Concentration - - Weight 101 kg (222 lb 0.1 oz) 04/30/2012 7:59 AM AUTOMOBILE LEASING SUPERVISOR Height - - Body Mass Index 38.85 03/19/2012 9:08 AM AUTOMOBILE LEASING SUPERVISOR documented in this encounter Medications at Time of Discharge Medication Sig Dispensed Refills Start Date End Date IBUPROFEN ORAL Take by mouth as needed. 0 011 documented as of this encounter Progress Notes Nieves Dwyer, N.P. - 04/30/2012 7:51 AM CST [id number] CHIEF COMPLAINT/REASON FOR VISIT Chest cold. HISTORY [...] Chanel Zaragoza/amanda Electronically Signed By: NIEVES DWYER MARINE STRUCTURAL DESIGNER On: 05/06/2012 11:31 AM Source: [facility] MHSDOLBEYNONRADSYS Document Id: [id number] MOBILE LEASING SUPERVISOR documented in this encounter Miscellaneous Notes Miscellaneous - Nieves Dwyer N.P. - 04/30/2012 8:28 AM CST Ambulatory Patient Summary [address] [place] [address] Visit Information Name: CANDY GRULLON [facility] Number: [id number] Current Date: 04/30/2012 08:28:43 Physicians Attending Provider: NIEVES DWYER NP Primary Care Provider: WILLEM SAEED RN, MANAGER IN TRAINING Your Medications Here is a list of [...] BARRERA, Lars Davis Your Goals/Additional instructions: Source: [facility] POWERCHART Document Id: [id number] MOBILE LEASING SUPERVISOR Miscellkatie - Nieves Dwyer N.P. - 04/30/2012 8:28 AM CST Ambulatory Depart Summary [address] [place] [address] Visit Information Name: CANDY GRULLON [facility] Number: [id number] Visit Date: 04/30/2012 08:28:43 Attending Provider: NIEVES DWYER MARINE STRUCTURAL DESIGNER Primary Care Provider: WILLEM SAEED RN, MANAGER IN TRAINING CANDY GRULLON has been given the following [...] your provider for clarification. Additional Information: Source: [facility] POWERCHART Document Id: [id number] MOBILE LEASING SUPERVISOR Abbeycellkatie - Nieves Dwyer N.P. - 04/30/2012 8:26 AM CST School or Work Excuse School or Work Excuse Entered On: 04/30/2012 8:27 AUTOMOBILE LEASING SUPERVISOR Performed On: 04/30/2012 8:26 AUTOMOBILE LEASING SUPERVISOR by NIEVES DWYER NP School or Work Excuse Date Patient Seen : 04/30/2012 AUTOMOBILE LEASING SUPERVISOR Date of Return to School/Work Without Restrictions : 04/30/2012 AUTOMOBILE LEASING SUPERVISOR Comment : Candy was seen today for bronchitis. NIEVES DWYER NP - 04/30/2012 8:26 AUTOMOBILE LEASING SUPERVISOR Source: [facility] POWERCHART Document Id: [id number] MOBILE LEASING SUPERVISOR Miscellaneous - Johnnie Sher LCarinePCarineN. 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 Intake/History Entered On: 04/30/2012 8:03 AUTOMOBILE LEASING SUPERVISOR Performed On: 04/30/2012 7:59 AUTOMOBILE LEASING SUPERVISOR by JOHNNIE SHER LPN Intake Chief Complaint [...] 100.70kg JOHNNIE SHER LPN - 04/30/2012 7:59 AUTOMOBILE LEASING SUPERVISOR Subjective Pain Symptoms : No JOHNNIE SHER LPN - 04/30/2012 7:59 AUTOMOBILE LEASING SUPERVISOR Dependent Habits Tobacco Use/Currently Using : Yes Exposure to Tobacco Smoke : Patient smokes Smoking Status : Current some day smoker JOHNNIE SHER LPN - 04/30/2012 7:59 AUTOMOBILE LEASING SUPERVISOR Tobacco Use Grid Type : Cigarettes Cigarette Use Packs/Day : 0.5 JOHNNIE SHER LPN - 04/30/2012 7:59 AUTOMOBILE LEASING SUPERVISOR Alcohol Use : Yes JOHNNIE SHER LPN - 04/30/2012 7:59 AUTOMOBILE LEASING SUPERVISOR Caffeine Use Grid Caffeine Use : Current Type : Soft drinks Frequency : Daily JOHNNIE SHER LPN - 04/30/2012 7:59 AUTOMOBILE LEASING SUPERVISOR Recreational Drug Use Grid Drug Use : None JOHNNIE SHER LPN - 04/30/2012 7:59 AUTOMOBILE LEASING SUPERVISOR Allergy Allergies (Active) Demerol HCl Estimated Onset Date: Unspecified ; Created By: WADE DAIGLE LPN; Reaction Status: Active ; Category: Drug ; Substance: Demerol HCl ; Type: Allergy ; Updated By: WADE DAIGLE LPN;Reviewed Date: 04/02/2012 10:16 AUTOMOBILE LEASING SUPERVISOR hydrocodone-acetaminophen Estimated Onset Date: Unspecified ; Created By: MICHELLE JOHNSON RN; Reaction Status: Active ; Category: Drug ; Substance: hydrocodone-acetaminophen ; Type: Allergy ; Severity: Severe ; Updated By: MICHELLE JOHNSON RN; Source: Patient ; Reviewed Date: 04/02/2012 10:16 AUTOMOBILE LEASING SUPERVISOR Source: [facility] POWERCHART Document Id: [id number] MOBILE LEASING SUPERVISOR Miscellaneous - Johnnie Sher L.P.N. - 04/30/2012 7:59 AM CST Health Assessment Health Assessment Entered On: 04/30/2012 8:04 AUTOMOBILE LEASING SUPERVISOR Performed On: 04/30/2012 7:59 AUTOMOBILE LEASING SUPERVISOR by JOHNNIE SHER LPN Health Assessment Complete Health Assessment Complete or Modified : Annual Health Assessment Annual Health Assessment Completed : Yes JOHNNIE SHER LPN - 04/30/2012 7:59 AUTOMOBILE LEASING SUPERVISOR Nutrition Nutrition Risk Factors by History Adult : None JOHNNIE SHER LPN - 04/30/2012 7:59 AUTOMOBILE LEASING SUPERVISOR Functional Current Daily Living Assistance : None JOHNNIE SHER LPN - 04/30/2012 7:59 AUTOMOBILE LEASING SUPERVISOR Dependent Habits Tobacco Use/Currently Using : Yes Exposure to Tobacco Smoke : Patient smokes Smoking Status : Current some day smoker JOHNNIE SHER LPN - 04/30/2012 7:59 AUTOMOBILE LEASING SUPERVISOR Tobacco Use Grid Type : Cigarettes Cigarette Use Packs/Day : 0.5 JOHNNIE SHER LPN - 04/30/2012 7:59 AUTOMOBILE LEASING SUPERVISOR Alcohol Use : Yes JOHNNIE SHER LPN - 04/30/2012 7:59 AUTOMOBILE LEASING SUPERVISOR Caffeine Use Grid Caffeine Use : Current Type : Soft drinks Frequency : Daily JOHNNIE SHER GINGER FARMER - 04/30/2012 7:59 AUTOMOBILE LEASING SUPERVISOR Recreational Drug Use Grid Drug Use : None JOHNNIE SHER LPN - 04/30/2012 7:59 AUTOMOBILE LEASING SUPERVISOR AUDIT Tool How Often Do You Have A Drink : 2 to 4 times a month How Many Drinks in a Day When Drinking : 1 or 2 Six or More Drinks On One Occassion : Never Audit Phase 1 Score : 2 JOHNNIE SHER LPN - 04/30/2012 7:59 AUTOMOBILE LEASING SUPERVISOR Psychosocial Domestic Abuse Concerns : None JOHNNIE SHER GINGER FARMER - 04/30/2012 7:59 AUTOMOBILE LEASING SUPERVISOR Advance Directive Advanced Directives : Yes JOHNNIE SHER GINGER FARMER - 04/30/2012 7:59 AUTOMOBILE LEASING SUPERVISOR Educ Needs Learning Style Preference Adult Grid Patient : None Family : None JOHNNIE SHER GINGER FARMER - 04/30/2012 7:59 AUTOMOBILE LEASING SUPERVISOR Source: [facility] POWERCHART Document Id: [id number] MOBILE LEASING SUPERVISOR documented in this encounter Plan of Treatment Not on filedocumented as of this encounter Visit Diagnoses Not on filedocumented in this encounter
--- OUTSIDE RECORDS SUMMARY | 2022-02-10 13:25 | XMS_ITS | Encounter Summary ---
:1970 Author Organization [facility] Address [address] [place] [address] Care Team Providers Name Role Phone Unavailable Primary Care Provider Unavailable Encounter Details Date Type Department Care Team Description 03/19/2012 Hospital Encounter HX [facility] SURGERY Craig Michaud M.D. [address] [place] [address] (Wo rk) Social History Tobacco Use Types Packs/Day Years Used Date Smoking Tobacco: Never Assessed Sex Assigned at Date Recorded Not on file documented as of this encounter Last Filed Vital Signs Vital Sign Reading Time Taken Comments Blood Pressure 118/58 03/19/2012 12:33 PM QUILLER MACHINE FIXER Pulse 89 03/19/2012 12:33 PM QUILLER MACHINE FIXER Temperature - - Respiratory Rate 16 03/19/2012 11:15 AM QUILLER MACHINE FIXER Oxygen Saturation - - Inhaled Oxygen Concentration - - Weight - - Height 161 cm (5' 3.39) 03/19/2012 9:08 AM QUILLER MACHINE FIXER Body Mass Index - - documented in this encounter Medications at Time of Discharge Medication Sig Dispensed Refills Start Date End Date IBUPROFEN ORAL Take by mouth as needed. 0 011 documented as of this encounter Procedure Notes Rosalina Wesley, R.N. - 03/19/2012 9:08 AM CST Preprocedure Checklist Preprocedure Checklist Entered On: 03/19/2012 9:15 QUILLER MACHINE FIXER Performed On: 03/19/2012 9:08 QUILLER MACHINE FIXER by ROSALINA WESLEY RN Checklist Last Fluid Intake : 03/18/2012 23:00 QUILLER MACHINE FIXER Last Food Intake : 03/18/2012 20:00 QUILLER MACHINE FIXER Status : Patient denies ROSALINA WESLEY RN - 03/19/2012 9:08 QUILLER MACHINE FIXER Surgery Prep Grid Contacts/Glasses Removed : Yes Preop Scrub Night Prior to Surgery : Yes Prosthesis Removed : NA Surgical Prep Verified : Yes Tampon Removed : NA Wearing Patient Gown : Yes Voided director information to procedure : Yes Dentures Removed : NA Hairpins/Hairpiecies Removed : NA Hearing Aid Removed : NA Home Prep Complete : NA Jewelry/Piercing Removed : NA Makeup/Nail Danish Removed : NA Oral Hygiene : NA Preop Scrub AM of Surgery : Yes ROSALINA WESLEY RN - 03/19/2012 9:08 QUILLER MACHINE FIXER Surgical Preparation : N/A ROSALINA WESLEY RN - 03/19/2012 9:08 QUILLER MACHINE FIXER Patient Rights Grid Blood Consent Signed : NA Surgical/Procedure Consent Signed : Yes ROSALINA WESLEY RN - 03/19/2012 9:08 QUILLER MACHINE FIXER Family Location : mom and sister waiting in hospital ROSALINA WESLEY RN - 03/19/2012 9:08 QUILLER MACHINE FIXER Checklist II Patient Safety Grid Allergy Band [...] : ROSALINA PHELPS RN - 03/19/2012 9:08 QUILLER MACHINE FIXER RN Who Verified Site : ROSALINA WESLEY RN Physician Who Verified Site : CIRO MICHAUD MD, GWYNNE A RN - 03/19/2012 9:08 QUILLER MACHINE FIXER GINGER Screening Known Obstructive Sleep Apnea : No Uses Home CPAP/BiPAP : No Risk for Sleep Apnea : No ROSALINA WESLEY RN - 03/19/2012 9:08 QUILLER MACHINE FIXER GINGER Assessment Do you have high blood pressure or have you been told to take medication for high blood pressure? : No Frequency of Snoring : Rarely (1-2 times per year) Frequency of Gasping, Choking, Snorting : Never Neck Circumference (cm) : 42/43 Total Sleep Apnea Clinical Score : 5 Total Number of Historical Features : 0 ROSALINA WESLEY RN - 03/19/2012 9:08 QUILLER MACHINE FIXER Valuables/Belongings Valuables/Belongings Grid Valuables at Bedside Clothes, Patient Valuables : Pants, Shirt, Shoes ROSALINA WESLEY RN - 03/19/2012 9:08 QUILLER MACHINE FIXER Room Orientation/Facility Policy Reviewed : Yes Home Medication Disposition : None brought in with patient ILSA-PFROSALINA JARVIS RN - 03/19/2012 9:08 QUILLER MACHINE FIXER Education Preprocedure Education Grid Procedure Type : as above Education Topics : Anesthesia/Sedation, Plan of care Individuals Taught : Patient, Parent, Sibling Barriers to Learning : None evident Teaching Method : Explanation Teaching Evaluation : Verbalizes understanding ILSAROSALINA WEISS RN - 03/19/2012 9:08 QUILLER MACHINE FIXER Preop Holding Mode of Arrival : Ambulatory Preoperative Orders Complete : Yes ROSALINA WESLEY RN - 03/19/2012 9:08 QUILLER MACHINE FIXER Advance Directive Advanced Directives : Yes ROSALINA WESLEY RN - 03/19/2012 9:08 QUILLER MACHINE FIXER Vital Signs Temperature Core : 37.2C(Converted to: [...] Estimated Weight Conversion to Pounds : 212.74lb ILSAROSALINA WEISS RN - 03/19/2012 9:08 QUILLER MACHINE FIXER Allergy Allergies (Active) Demerol HCl Estimated Onset Date: Unspecified ; Created By: WADE DAIGLE LPN; Reaction Status: Active ; Category: Drug ; Substance: Demerol HCl ; Type: Allergy ; Updated By: WADE DAIGLE LPN;Reviewed Date: 03/06/2012 11:00 QUILLER MACHINE FIXER Preprocedural Pause Correct Patient Identity : Patient verbalizes self, Patient wristband ID, Family/responsible libertarian ID, Patient verbalizes Correct Procedure Site and Side : left knee arthroscopy with partial meniscectomy Correct Procedure Site/Side Verified By : Patient/responsible libertarian, Nurse, MD Site Marking : Yes Pre-Procedure Pause Verbal Confirm. of : Procedure, Site, Side, Patient Position, Patient ID ROSALINA WESLEY RN - 03/19/2012 9:08 QUILLER MACHINE FIXER Source: [place] Document Id: [id number] LER MACHINE FIXER documented in this encounter Nursing Notes Rosalina Wesley RClinton - 03/19/2012 9:01 AM CST Day Surgery Admission History/Asmt Adult Document Has Been Updated Day Surgery Admission History/Asmt Adult Entered On: 03/19/2012 9:07 QUILLER MACHINE FIXER Performed On: 03/19/2012 9:01 QUILLER MACHINE FIXER by ROSALINA WESLEY RN General Info Preferred Name : Candy Mode of Arrival : Ambulatory Accompanied By : Alone, Mother, Sibling Chief Complaint : left knee scope Preferred Communication Mode : Verbal Information Given By : Patient Languages : Andorran Status : Patient denies Have you received chemotherapy in last 48 hours? : No ROSALINA WESLEY RN - 03/19/2012 9:01 QUILLER MACHINE FIXER Allergy Allergies (Active) Demerol HCl Estimated Onset Date: Unspecified ; Created By: WADE DAIGLE LPN; Reaction Status: Active ; Category: Drug ; Substance: Demerol HCl ; Type: Allergy ; Updated By: WADE DAIGLE LPN;Reviewed Date: 03/06/2012 11:00 QUILLER MACHINE FIXER Anesth/Transfusion Anesthesia/Transfusions : Prior anesthesia ROSALINA WESLEY RN - 03/19/2012 9:01 QUILLER MACHINE FIXER ID Screen Drug Resistant Organism : No TAIKEY JAMESYNMICHAELLE Davis - 03/19/2012 9:01 QUILLER MACHINE FIXER Nutrition Nutrition Risk Factors by History Adult : None Home Diet : Regular Feeding Ability : Complete independence Eating Difficulties : None Appetite : Excellent BÁRBARAKEY JARVISYNMICHAELLE Davis - 03/19/2012 9:01 QUILLER MACHINE FIXER Home Environment Current Daily Living Assistance : None Living Situation : Home independently Home Equipment : None Sensory Deficits : None Mobility Assistance Prior to Admission : Independent Current Home Treatments : None Professional Skilled Services : None Special Services and Community Resources : None TAIROSALINA JAMES - 03/19/2012 9:01 QUILLER MACHINE FIXER Dependent Habits Tobacco Use/Currently Using : Yes Tobacco Use/Advised to Quit : Yes Exposure to Tobacco Smoke : Patient smokes Smoking Status : Current every day smoker ILSAROSALINA WEISS - 03/19/2012 9:01 QUILLER MACHINE FIXER Tobacco Use Grid Type : Cigarettes Cigarette Use Packs/Day : 0.5 ROSALINA WESLEY - 03/19/2012 9:01 QUILLER MACHINE FIXER Alcohol Use : Yes ROSALINA WESLEY - 03/19/2012 9:01 QUILLER MACHINE FIXER Caffeine Use Grid Caffeine Use : Current Type : Soft drinks Frequency : Daily ROSALINA WESLEY - 03/19/2012 9:01 QUILLER MACHINE FIXER Recreational Drug Use Grid Drug Use : None ILSAROSALINA WEISS - 03/19/2012 9:01 QUILLER MACHINE FIXER AUDIT Tool How Often Do You Have A Drink : 2 to 3 times a week How Many Drinks in a Day When Drinking : 1 or 2 Six or More Drinks On One Occassion : Never Audit Phase 1 Score : 3 ILSAROSALINA WIESS - 03/19/2012 9:01 QUILLER MACHINE FIXER Psychosocial Adult Domestic Abuse Concerns : None ROSALINA WESLEY - 03/19/2012 9:01 QUILLER MACHINE FIXER Advance Directive Advanced Directives : Yes ROSALINA WESLEY - 03/19/2012 9:01 QUILLER MACHINE FIXER Educ Needs Patient/Family Education Needs : Plan of care ROSALINA WESLEY - 03/19/2012 9:01 QUILLER MACHINE FIXER Learning Style Preference Adult Grid Patient : Verbal explanation Family : Verbal explanation ROSALINA WESLEY RN - 03/19/2012 9:01 QUILLER MACHINE FIXER Education Preprocedure Education Grid Procedure Type : left knee scope with partial meniscectomy Education Topics : Anesthesia/Sedation, Plan of care Individuals Taught : Patient, Parent, Sibling Barriers to Learning : None evident Teaching Method : Explanation Teaching Evaluation : Verbalizes understanding ROSALINA WESLEY RN - 03/19/2012 9:01 QUILLER MACHINE FIXER Outpatient Assessment Procedural Respiratory : Respirations unlabored, Respiratory pattern regular, Breath sounds clear all lobes Procedural Cardiovascular : Heart rhythm regular Procedural Neurological : Alert, Oriented x 3, Gait steady Procedural Gastrointestinal : Abdomen non-tender and soft Procedural Genitourinary : Voiding, no difficulties Procedural Integumentary : Skin integrity intact Procedural Musculoskeletal : Activity tolerance without distress ROSALINA WESLEY RN - 03/19/2012 9:01 QUILLER MACHINE FIXER Psycho/Emotional Pain Symptoms : No Affect/Behavior : Calm, Cooperative, Appropriate ROSALINA WESLEY RN - 03/19/2012 9:01 QUILLER MACHINE FIXER Peripheral IV Peripheral IV Assess/Intervention Grid Peripheral IV #1 IV Activity : Start Number of Attempts : 4 ROSALINA WESLEY RN - 03/19/2012 9:51 QUILLER MACHINE FIXER Date of Insertion : 03/19/2012 QUILLER MACHINE FIXER IV Site : Hand Laterality : Left Catheter Size : 20 Catheter Type : Over the needle ROSALINA WESLEY RN - 03/19/2012 9:51 QUILLER MACHINE FIXER Site Condition : No complications Drainage Description : None Infiltration Score : 0 Phlebitis Score : 0 Flow/ Patency : No complications ROSALINA WESLEY RN - 03/19/2012 9:01 QUILLER MACHINE FIXER Regino Sensory Perception Regino : No impairment Moisture Regino : Rarely moist Activity Regino : Walks frequently Mobility Regino : No limitations Nutrition Regino : Excellent Friction and Shear Regino : No apparent problem Regino Score : 23 ROSALINA WESLEY RN - 03/19/2012 9:01 QUILLER MACHINE FIXER Hendrich II Fall Risk Confusion/Disorientation Hendrich : [...] Fall Risk Score Rogelio II : 0 ROSALINA WESLEY RN - 03/19/2012 9:01 QUILLER MACHINE FIXER DC Needs Anticipated Discharge Date : 03/19/2012 QUILLER MACHINE FIXER Discharge To, Anticipated : Home independently Home Treatments, Anticipated : None Home Equipment, Anticipated : None Professional Skilled Services, Anticipated : None Special Serv & Comm Res, Anticipated : None Needs Assistance with Transportation : No Needs Assistance at Home Upon Discharge : No ROSALINA WESLEY RN - 03/19/2012 9:01 QUILLER MACHINE FIXER FLACC Face FLACC : No particular expression or smile Legs FLACC : Normal position or relaxed Activity FLACC : Lying quietly, normal position, moves easily Cry FLACC : No cry, awake or asleep Consolabillity FLACC : Content, relaxed FLACC Pain Scale Score : 0 ROSALINA WESLEY - 03/19/2012 9:01 QUILLER MACHINE FIXER Urinary Catheter Urinary Catheter Activity Type : Other: none ROSALINA WESLEY - 03/19/2012 9:08 QUILLER MACHINE FIXER Integumentary Integumentary Patient Stated Symptoms : None Skin Turgor : Elastic Skin Integrity : Intact Mucous Membrane Color : [place] Mucous Membrane Description : Moist Skin Color : Normal for ethnicity Skin Description : Dry Skin Temperature : Warm ROSALINA WESLEY RN - 03/19/2012 9:08 QUILLER MACHINE FIXER [facility] Document Id: [id number] LER MACHINE FIXER documented in this encounter OR Notes Op Note - Ciro Michaud M.D. - 03/19/2012 12:00 AM CST [id number] PREOPERATIVE DIAGNOSIS: Right knee medial meniscus tear. POSTOPERATIVE DIAGNOSIS: Right knee medial meniscus tear, loose body and DJD. PROCEDURE: Right knee arthroscopy, partial medial meniscectomy, loose body removal and chondroplasty, medial femoral condyle and femoral trochlea. SURGEON: Ciro Michaud M.D. ANESTHESIA: Spinal anesthesia. ESTIMATED BLOOD LOSS: [...] MICHAUD MD On: 04/09/2012 03:37 PM Source: [facility] [id number] Document Id: [id number] LER MACHINE FIXER documented in this encounter Miscellaneous Notes Miscellaneous - Nataliia Elmore, R.N. - 03/19/2012 12:33 PM CST Adult Postprocedure Assessment Document Has Been Updated Adult Postprocedure Assessment Entered On: 03/19/2012 12:42 QUILLER MACHINE FIXER Performed On: 03/19/2012 12:33 QUILLER MACHINE FIXER by NATALIIA ELMORE RN Vital Signs Temperature Core : 36.5C(Converted to: 97.7DegF) Peripheral Pulse Rate : 89/min Systolic Blood Pressure : 118mmHg Diastolic Blood Pressure : 58mmHg NIBP Mean : 78mmHg BP Location : Right upper extremity SpO2 : 99% Oxygen Saturation Monitoring Frequency : Continuous Oxygen Therapy : Room air NATALIIA ELMORE RN - 03/19/2012 12:33 QUILLER MACHINE FIXER General Level of Consciousness : Alert Orientation : Oriented x 3 Skin Color : Normal for ethnicity Skin Description : Dry Skin Temperature : Warm Pain Symptoms : No NATALIIA ELMORE RN - 03/19/2012 12:33 QUILLER MACHINE FIXER FLACC Face FLACC : No particular expression or smile Legs FLACC : Normal position or relaxed Activity FLACC : Lying quietly, normal position, moves easily Cry FLACC : No cry, awake or asleep Consolabillity FLACC : Content, relaxed FLACC Pain Scale Score : 0 NATALIIA ELMORE RN - 03/19/2012 12:33 QUILLER MACHINE FIXER Cardiovascular Nail Bed Color : [place] NATALIIA ELMORE - 03/19/2012 12:33 QUILLER MACHINE FIXER Respiratory Anesthesia Type : Block, Spinal NATALIIA ELMORE 03/19/2012 15:13 QUILLER MACHINE FIXER Respiratory Pattern : Regular Respirations : Unlabored All Lobes Breath Sounds : Clear NATALIIA ELMORE - 03/19/2012 12:33 QUILLER MACHINE FIXER GI/ Nausea Symptoms : No NATALIIA ELMORE - 03/19/2012 12:33 QUILLER MACHINE FIXER Integumentary Integumentary Patient Stated Symptoms : None Skin Turgor : Elastic Skin Integrity : Not intact Mucous Membrane Color : [place] Mucous Membrane Description : Moist Skin Color : Normal for ethnicity Skin Description : Dry Skin Temperature : Warm NATALIIA ELMORE - 03/19/2012 12:33 QUILLER MACHINE FIXER Incision/Wound Incision/Wound Care Grid Activity : Assessed Type : Other: arthroscopy Location : Knee Laterality : Left Description : NATALIIA Black 03/19/2012 12:33 QUILLER MACHINE FIXER Peripheral IV Peripheral IV Assess/Intervention Grid Peripheral IV #1 IV Activity : Discontinue Number of Attempts : 4 Date of Insertion : 03/19/2012 QUILLER MACHINE FIXER IV Site : Hand Laterality : Left Catheter Size : 20 Catheter Type : Over the needle Site Condition : No complications Drainage Description : None Infiltration Score : 0 Phlebitis Score : 0 NATALIIA ELMORE Susan 03/19/2012 12:33 QUILLER MACHINE FIXER I&O Oral Intake : 200mL Other Intake : 50mL NATALIIA ELMORE 03/19/2012 12:33 QUILLER MACHINE FIXER Neurologic Swallowing Difficulty/Aspiration Risk : None Extremity Movement : Equal Facial Symmetry : Symmetric Characteristics of Speech : Appropriate for age NATALIIA ELMORE 03/19/2012 12:33 QUILLER MACHINE FIXER Lower Extremity Nail Bed Color Feet Grid Left Foot : [place] Right Foot : [place] NATALIIA ELMORE 03/19/2012 12:33 QUILLER MACHINE FIXER Capillary Refill Feet Grid Left Foot : < 2 seconds Right Foot : < 2 seconds NATALIIA ELMORE Susan 03/19/2012 12:33 QUILLER MACHINE FIXER NV Lower Extremity Color Grid Left : [place] Right : [place] NATALIIA ELMORE 03/19/2012 12:33 QUILLER MACHINE FIXER NV Lower Extremity Temperature Grid Left : Warm Right : Warm NATALIIA ELMORE 03/19/2012 12:33 QUILLER MACHINE FIXER Lower Extremity Peripheral Pulses Grid Popliteal Pulse, Left : 2+ Normal Popliteal Pulse, Right : 2+ Normal Posttibial Pulse, Left : 2+ Normal Posttibial Pulse, Right : 2+ Normal Dorsalis Pedis Pulse, Left : 2+ Normal Dorsalis Pedis Pulse, Right : 2+ Normal NATALIIA ELMORE 03/19/2012 12:33 QUILLER MACHINE FIXER Lower Extremity Sensation NV Grid Medial/Lateral Surfaces Sole of Left Foot : Intact Medial/Lateral Surfaces Sole of Right Foot : Intact Web Space Between Great and Second Toe Left Foot : Intact Web Space Between Great and Second Toe Right Foot : Intact NATALIIA ELMORE 03/19/2012 12:33 QUILLER MACHINE FIXER Lower Extremity Strength NV Grid Plantar Flexion Left Foot : Zero 0 Plantar Flexion Right Foot : Zero 0 Dorsiflex Foot/Extend Toes Left : Zero 0 Dorsiflex Foot/Extend Toes Right : Zero 0 YOANDYNATALIIA 03/19/2012 12:33 QUILLER MACHINE FIXER Upper Extremity Nail Bed Color Hands Grid Left Hand : [place] Right Hand : [place] NATALIIA ELMORE 03/19/2012 12:33 QUILLER MACHINE FIXER Capillary Refill Hand Grid Left Hand : < 2 seconds Right Hand : < 2 seconds YOANDY NATALIIA Susan 03/19/2012 12:33 QUILLER MACHINE FIXER Upper Extremity Color Grid Left : [place] Right : [place] NATALIIA ELMORE 03/19/2012 12:33 QUILLER MACHINE FIXER Upper Extremity Temperature Grid Left : Warm Right : Warm NATALIIA ELMORE 03/19/2012 12:33 QUILLER MACHINE FIXER NV Upper Extremity Pulses Grid Radial Pulse, Left : 2+ Normal Radial Pulse, Right : 2+ Normal NATALIIA ELMORE 03/19/2012 12:33 QUILLER MACHINE FIXER PARSAP Activity Status : Moves 4 extremities [...] : Not assessed PARSAP Score : 20 NATALIIA ELMORE 03/19/2012 12:33 QUILLER MACHINE FIXER [place] Johnson Agitation Sedation Scale (RASS) : Alert and calm RASS Score : 0 YOANDYNATALIIA 03/19/2012 12:33 QUILLER MACHINE FIXER Regino Sensory Perception Regino : No impairment Moisture Regino : Rarely moist Activity Regino : Walks frequently Mobility Regino : No limitations Nutrition Regino : Adequate Friction and Shear Regino : No apparent problem Regino Score : 22 NATALIIA ELMORE RN - 03/19/2012 12:33 QUILLER MACHINE FIXER Hendrich II Fall Risk Confusion/Disorientation Hendrich : [...] Fall Risk Score Hendrich II : 2 NATALIIA ELMORE RN - 03/19/2012 12:33 QUILLER MACHINE FIXER Education General Patient Education Powergrid Topics : Activity limitations/expectations, Discharge instructions/Medication list, Medication dosage, route, scheduling, Pain Management, Physical limitations, Printed materials, Safety, fall, Smokingcessation, Use of pain scale(s), When to call health care provider Individuals Taught : Patient Barriers to Learning : None evident Teaching Method : Explanation, Printed materials Teaching Evaluation : Verbalizes understanding NATALIIA ELMORE RN - 03/19/2012 12:33 QUILLER MACHINE FIXER [facility]: [facility] Document Id: [id number] LER MACHINE FIXER Miscellaneous - Guillermina White RCarineNCarine - 03/19/2012 12:20 PM CST Inpatient Patient Education The following Patient Education Materials have been given to the patient: Patient Education Materials: Custom Discharge Instructions - Adult (Custom) Custom [id number] Discharge Instructions (Adults)HOME CARE FOLLOWING Left knee [...] OR CALL THE PATIENT ADVISORY NURSE AT [phone] OR EMERGENCY ROOM AT [phone], ext: [phone]. ext: surgical services [phone], med-surge [phone] Physician: with Lars SANCHES Office: You may receive a Customer Satisfaction survey in the mail from [employer]. If you receive this survey, we would ask that you take the time to complete it and return it. Your comments and suggestions are important to us; we are always looking for ways to improve the service we provide. Thank you for choosing [facility]. It was a pleasure to serve you. Source: [facility] POWERCHART Document Id: [id number] LER MACHINE FIXER Miscellaneous - Nataliia Elmore R.N. - 03/19/2012 12:05 PM CST Adult Postprocedure Assessment Document Has Been Updated Adult Postprocedure Assessment Entered On: 03/19/2012 12:17 QUILLER MACHINE FIXER Performed On: 03/19/2012 12:05 QUILLER MACHINE FIXER by NATALIIA ELMORE RN Vital Signs Temperature Core : 36.2C(Converted to: 97.2DegF) (LOW) Peripheral Pulse Rate : 76/min Systolic Blood Pressure : 125mmHg Diastolic Blood Pressure : 71mmHg NIBP Mean : 89mmHg BP Location : Right upper extremity SpO2 : 98% Oxygen Saturation Monitoring Frequency : Continuous Oxygen Therapy : Room air NATALIIA ELMORE RN - 03/19/2012 12:05 QUILLER MACHINE FIXER General Level of Consciousness : Alert Orientation : Oriented x 3 Skin Color : Normal for ethnicity Skin Description : Dry Skin Temperature : Warm Pain Symptoms : No NATALIIA ELMORE RN - 03/19/2012 12:05 QUILLER MACHINE FIXER FLACC Face FLACC : No particular expression or smile Legs FLACC : Normal position or relaxed Activity FLACC : Lying quietly, normal position, moves easily Cry FLACC : No cry, awake or asleep Consolabillity FLACC : Content, relaxed FLACC Pain Scale Score : 0 NATALIIA ELMORE RN - 03/19/2012 12:05 QUILLER MACHINE FIXER Cardiovascular Nail Bed Color : [place] Capillary Refill : Less than 2 seconds Antiembolism Device : Sequential Compression Device Antiembolism Device Laterality : Right NATALIIA ELMORE RN - 03/19/2012 12:05 QUILLER MACHINE FIXER Respiratory Anesthesia Type : Block, Spinal NATALIIA ELMORE RN - 03/19/2012 15:13 QUILLER MACHINE FIXER Airway Type : None Respiratory Pattern : Regular Respirations : Unlabored All Lobes Breath Sounds : Clear Oxygen Discontinuation : 03/19/2012 12:07 QUILLER MACHINE FIXER NATALIIA ELMORE RN - 03/19/2012 12:05 QUILLER MACHINE FIXER Integumentary Integumentary Patient Stated Symptoms : None Skin Turgor : Elastic Skin Integrity : Not intact Mucous Membrane Color : [place] Mucous Membrane Description : Moist Skin Color : Normal for ethnicity Skin Description : Dry Skin Temperature : Warm NATALIIA ELMORE 03/19/2012 12:05 QUILLER MACHINE FIXER Incision/Wound Incision/Wound Care Grid Activity : Assessed Type : Other: arthroscopy Location : Knee Laterality : Left Description : Dry NATALIIA ELMORE 03/19/2012 12:05 QUILLER MACHINE FIXER Peripheral IV Peripheral IV Assess/Intervention Grid Peripheral IV #1 IV Activity : Assessment Number of Attempts : 4 Date of Insertion : 03/19/2012 QUILLER MACHINE FIXER IV Site : Hand Laterality : Left Catheter Size : 20 Catheter Type : Over the needle Site Condition : No complications Drainage Description : None NATALIIA ELMORE 03/19/2012 12:05 QUILLER MACHINE FIXER I&O Other Intake : 300mL YOANDY NATALIIA Davis 03/19/2012 12:05 QUILLER MACHINE FIXER Nutrition Lunch : 100% YOANDYNATALIIA 03/19/2012 12:05 QUILLER MACHINE FIXER Neurologic Swallowing Difficulty/Aspiration Risk : None Extremity Movement : Unequal Facial Symmetry : Symmetric Characteristics of Speech : Appropriate for age NATALIIA ELMORE 03/19/2012 12:05 QUILLER MACHINE FIXER Neurological Strengths Grid Left Lower Extremity Strength : Weak NATALIIA ELMORE 03/19/2012 12:05 QUILLER MACHINE FIXER Lower Extremity Nail Bed Color Feet Grid Left Foot : [place] Right Foot : [place] NATALIIA ELMORE 03/19/2012 12:05 QUILLER MACHINE FIXER Capillary Refill Feet Grid Left Foot : < 2 seconds Right Foot : < 2 seconds NATALIIA ELMORE 03/19/2012 12:05 QUILLER MACHINE FIXER NV Lower Extremity Color Grid Left : [place] Right : [place] NATALIIA ELMORE 03/19/2012 12:05 QUILLER MACHINE FIXER NV Lower Extremity Temperature Grid Left : Warm Right : Warm NATALIIA ELMORE 03/19/2012 12:05 QUILLER MACHINE FIXER Lower Extremity Peripheral Pulses Grid Popliteal Pulse, Left : 2+ Normal Popliteal Pulse, Right : 2+ Normal Posttibial Pulse, Left : 2+ Normal Posttibial Pulse, Right : 2+ Normal Dorsalis Pedis Pulse, Left : 2+ Normal Dorsalis Pedis Pulse, Right : 2+ Normal NATALIIA ELMORE 03/19/2012 12:05 QUILLER MACHINE FIXER Lower Extremity Sensation NV Grid Medial/Lateral Surfaces Sole of Left Foot : Absent, Intact Medial/Lateral Surfaces Sole of Right Foot : Tingling, Intact Web Space Between Great and Second Toe Left Foot : Absent, Intact Web Space Between Great and Second Toe Right Foot : Tingling NATALIIA ELMORE RN - 03/19/2012 12:05 QUILLER MACHINE FIXER Lower Extremity Strength NV Grid Plantar Flexion Left Foot : Zero 0 Plantar Flexion Right Foot : Zero 0 Dorsiflex Foot/Extend Toes Left : Zero 0 Dorsiflex Foot/Extend Toes Right : Zero 0 NATALIIA ELMORE RN - 03/19/2012 12:05 QUILLER MACHINE FIXER PARSAP Activity Status : Moves 4 extremities [...] air Urine Output, PARSAP : Not assessed NATALIIA ELMORE RN - 03/19/2012 12:05 QUILLER MACHINE FIXER Johnson Johnson Agitation Sedation Scale (RASS) : Alert and calm RASS Score : 0 NATALIIA ELMORE RN - 03/19/2012 12:05 QUILLER MACHINE FIXER Regino Sensory Perception Regino : No impairment Moisture Regino : Rarely moist Activity Regino : Walks frequently Mobility Regino : No limitations Nutrition Regino : Adequate Friction and Shear Regino : No apparent problem Regino Score : 22 NATALIIA ELMORE RN - 03/19/2012 12:05 QUILLER MACHINE FIXER Hendrich II Fall Risk Confusion/Disorientation Hendrich : [...] Fall Risk Score Hendrich II : 2 NATALIIA ELMORE RN - 03/19/2012 12:05 QUILLER MACHINE FIXER Education General Patient Education Powergrid Topics : Activity limitations/expectations, Discharge instructions/Medication list, Individual plan for pain management, Pain Management, Physical limitations, Plan of care, Printed materials Individuals Taught : Patient Barriers to Learning : None evident Teaching Method : Explanation, Printed materials Teaching Evaluation : Verbalizes understanding NATALIIA ELMORE RN - 03/19/2012 12:05 QUILLER MACHINE FIXER Source: [facility] POWERCHART Document Id: [id number] LER MACHINE FIXER Miscellaneous - Nataliia Elmore R.N. - 03/19/2012 11:36 AM CST Adult Postprocedure Assessment Document Has Been Updated Adult Postprocedure Assessment Entered On: 03/19/2012 11:55 QUILLER MACHINE FIXER Performed On: 03/19/2012 11:36 QUILLER MACHINE FIXER by NATALIIA ELMORE RN Vital Signs Temperature Core : 39.2C(Converted to: 102.6DegF) (HI) Peripheral Pulse Rate : 69/min Systolic Blood Pressure : 107mmHg Diastolic Blood Pressure : 64mmHg NIBP Mean : 78mmHg BP Location : Left upper extremity SpO2 : 100% Oxygen Flow Rate : 2L/min Oxygen Therapy : Nasal Cannula NATALIIA ELMORE RN - 03/19/2012 11:36 QUILLER MACHINE FIXER General Level of Consciousness : Alert Orientation : Oriented x 3 Skin Color : Normal for ethnicity Skin Description : Dry Skin Temperature : Warm Pain Symptoms : No NATALIIA ELMORE RN - 03/19/2012 11:36 QUILLER MACHINE FIXER FLACC Face FLACC : No particular expression or smile Legs FLACC : Normal position or relaxed Activity FLACC : Lying quietly, normal position, moves easily Cry FLACC : No cry, awake or asleep Consolabillity FLACC : Content, relaxed FLACC Pain Scale Score : 0 NATALIIA ELMORE RN - 03/19/2012 11:36 QUILLER MACHINE FIXER Cardiovascular Heart Rhythm : Regular Nail Bed Color : [place] Capillary Refill : Less than 2 seconds NATALIIA ELMORE RN - 03/19/2012 11:36 QUILLER MACHINE FIXER Pulses Grid Dorsalis Pedis Pulse, Left : 2+ Normal Dorsalis Pedis Pulse, Right : 2+ Normal NATALIIA ELMORE RN - 03/19/2012 11:36 QUILLER MACHINE FIXER Antiembolism Device : Sequential Compression Device Antiembolism Device Laterality : Right NATALIIA ELMORE RN - 03/19/2012 11:36 QUILLER MACHINE FIXER Respiratory Anesthesia Type : Block, Spinal NATALIIA ELMORE RN - 03/19/2012 15:12 QUILLER MACHINE FIXER Airway Type : None Respiratory Pattern : Regular Respirations : Unlabored All Lobes Breath Sounds : Clear NATALIIA ELMORE RN - 03/19/2012 11:36 QUILLER MACHINE FIXER GI/ Nausea Symptoms : No NATALIIA ELMORE RN - 03/19/2012 11:36 QUILLER MACHINE FIXER Integumentary Integumentary Patient Stated Symptoms : None Skin Turgor : Elastic Skin Integrity : Not intact Mucous Membrane Color : [place] Mucous Membrane Description : Moist Skin Color : Normal for ethnicity Skin Description : Dry Skin Temperature : Warm NATALIIA ELMORE - 03/19/2012 11:36 QUILLER MACHINE FIXER Incision/Wound Incision/Wound Care Grid Activity : Assessed Type : Other: arthroscopy Location : Knee Laterality : Left Description : NATALIIA Black - 03/19/2012 11:36 QUILLER MACHINE FIXER Peripheral IV Peripheral IV Assess/Intervention Grid Peripheral IV #1 IV Activity : Assessment Number of Attempts : 4 Date of Insertion : 03/19/2012 QUILLER MACHINE FIXER IV Site : Hand Laterality : Left Catheter Size : 20 Catheter Type : Over the needle Site Condition : No complications Drainage Description : None NATALIIA ELMORE - 03/19/2012 11:36 QUILLER MACHINE FIXER Neurologic Swallowing Difficulty/Aspiration Risk : None Extremity Movement : Unequal Facial Symmetry : Symmetric Characteristics of Speech : Appropriate for age NATALIIA ELMORE - 03/19/2012 11:36 QUILLER MACHINE FIXER Lower Extremity Nail Bed Color Feet Grid Left Foot : [place] Right Foot : [place] NATALIIA ELMORE - 03/19/2012 11:36 QUILLER MACHINE FIXER Capillary Refill Feet Grid Left Foot : < 2 seconds Right Foot : < 2 seconds NATALIIA ELMORE - 03/19/2012 11:36 QUILLER MACHINE FIXER NV Lower Extremity Color Grid Left : [place] Right : [place] NATALIIA ELMORE - 03/19/2012 11:36 QUILLER MACHINE FIXER NV Lower Extremity Temperature Grid Left : Warm Right : Warm NATALIIA ELMORE - 03/19/2012 11:36 QUILLER MACHINE FIXER Lower Extremity Peripheral Pulses Grid Popliteal Pulse, Left : 2+ Normal Popliteal Pulse, Right : 2+ Normal Posttibial Pulse, Left : 2+ Normal Posttibial Pulse, Right : 2+ Normal Dorsalis Pedis Pulse, Left : 2+ Normal Dorsalis Pedis Pulse, Right : 2+ Normal NATALIIA ELMORE - 03/19/2012 11:36 QUILLER MACHINE FIXER Lower Extremity Sensation NV Grid Medial/Lateral Surfaces Sole of Left Foot : Absent Medial/Lateral Surfaces Sole of Right Foot : Tingling Web Space Between Great and Second Toe Left Foot : Absent Web Space Between Great and Second Toe Right Foot : Tingling NATALIIA ELMORE - 03/19/2012 11:36 QUILLER MACHINE FIXER Lower Extremity Strength NV Grid Plantar Flexion Left Foot : Zero 0 Plantar Flexion Right Foot : Zero 0 Dorsiflex Foot/Extend Toes Left : Zero 0 Dorsiflex Foot/Extend Toes Right : Zero 0 NATALIIA ELMORE RN - 03/19/2012 11:36 QUILLER MACHINE FIXER PARSAP Activity Status : Moves 2 extremities [...] air Urine Output, PARSAP : Not assessed NATALIIA ELMORE RN - 03/19/2012 11:36 QUILLER MACHINE FIXER Johnson Johnson Agitation Sedation Scale (RASS) : Alert and calm RASS Score : 0 NATALIIA ELMORE RN - 03/19/2012 11:36 QUILLER MACHINE FIXER Regino Sensory Perception Regino : Slightly limited Moisture Regino : Rarely moist Activity Regino : Bedfast Mobility Regino : Completely limited Nutrition Regino : Adequate NATALIIA ELMORE RN - 03/19/2012 11:36 QUILLER MACHINE FIXER Hendrich II Fall Risk Confusion/Disorientation Hendrich : No Depression Fall Risk Hendrich : No Altered Elimination Fall Risk Hendrich : No Dizziness/Vertigo Fall Risk Hendrich : No Gender, Male Fall Risk Hendrich : No Prescribed Antiepileptics Hendrich : No Prescribed Benzodiazepines Hendrich : Yes Rising From Chair Fall Risk Hendrich : Unable to rise without assistance Fall Risk Score Hendrich II : 5 NATALIIA ELMORE RN - 03/19/2012 11:36 QUILLER MACHINE FIXER Education General Patient Education Powergrid Topics : Activity limitations/expectations, Individual plan for pain management, Pain Management, Plan of care, Printed materials, Safety, fall, Turn/Cough/Deep breathing Individuals Taught : Patient Barriers to Learning : None evident Teaching Method : Explanation, Printed materials Teaching Evaluation : Verbalizes understanding NATALIIA ELMORE RN - 03/19/2012 11:36 QUILLER MACHINE FIXER Source: [facility] POWERCHART Document Id: [id number] LER MACHINE FIXER Miscellaneous - Guillermina White R.N. - 03/19/2012 11:15 AM CST Adult Postprocedure Assessment Adult Postprocedure Assessment Entered On: 03/19/2012 11:31 QUILLER MACHINE FIXER Performed On: 03/19/2012 11:15 QUILLER MACHINE FIXER by GUILLERMINA WHITE RN Vital Signs Temperature Core : 36.5C(Converted to: 97.7DegF) Peripheral Pulse Rate : 68/min Respiratory Rate : 16/min Systolic Blood Pressure : 100mmHg Diastolic Blood Pressure : 59mmHg NIBP Mean : 73mmHg BP Location : Right upper extremity SpO2 : 100% Oxygen Flow Rate : 2L/min Oxygen Therapy : Nasal Cannula GUILLERMINA WHITE RN - 03/19/2012 11:22 QUILLER MACHINE FIXER General Level of Consciousness : Alert Orientation : Oriented x 3 Skin Color : Normal for ethnicity Skin Description : Dry Skin Temperature : Warm Pain Symptoms : No GUILLERMINA WHITE RN - 03/19/2012 11:22 QUILLER MACHINE FIXER FLACC Face FLACC : No particular expression or smile Legs FLACC : Normal position or relaxed Activity FLACC : Lying quietly, normal position, moves easily Cry FLACC : No cry, awake or asleep Consolabillity FLACC : Content, relaxed FLACC Pain Scale Score : 0 GUILLERMINA WHITE RN - 03/19/2012 11:22 QUILLER MACHINE FIXER Cardiovascular Heart Rhythm : Regular Nail Bed Color : [place] Edema : None Capillary Refill : Less than 2 seconds GUILLERMINA WHITE RN - 03/19/2012 11:22 QUILLER MACHINE FIXER Pulses Grid Radial Pulse, Left : 2+ Normal Radial Pulse, Right : 2+ Normal Dorsalis Pedis Pulse, Left : 2+ Normal Dorsalis Pedis Pulse, Right : 2+ Normal GUILLERMINA WHITE RN - 03/19/2012 11:22 QUILLER MACHINE FIXER Antiembolism Device : Luis Carlos wraps, Graduated compression stockings, thigh high Antiembolism Device Laterality : Right Anti Embolism Devices Time Applied : 03/19/2012 9:30 QUILLER MACHINE FIXER GUILLERMINA WHITE RN - 03/19/2012 11:22 QUILLER MACHINE FIXER Respiratory Anesthesia Type : MAC Airway Type : None Respiratory Pattern : Regular Respirations : Unlabored All Lobes Breath Sounds : Clear GUILLERMINA WHITE RN - 03/19/2012 11:22 QUILLER MACHINE FIXER GI/ Nausea Symptoms : No GUILLERMINA WHITE RN - 03/19/2012 11:22 QUILLER MACHINE FIXER Integumentary Integumentary Patient Stated Symptoms : None Skin Turgor : Elastic Skin Integrity : Intact Mucous Membrane Color : [place] Mucous Membrane Description : Moist Skin Color : Normal for ethnicity Skin Description : Normal Skin Temperature : Warm GUILLERMINA WHITE RN - 03/19/2012 11:22 QUILLER MACHINE FIXER Peripheral IV Peripheral IV Assess/Intervention Grid Peripheral IV #1 IV Activity : Assessment Number of Attempts : 4 Date of Insertion : 03/19/2012 QUILLER MACHINE FIXER IV Site : Hand Laterality : Left Catheter Size : 20 Catheter Type : Over the needle GUILLERMINA WHITE RN - 03/19/2012 11:22 QUILLER MACHINE FIXER I&O Other Intake : 1,500mL GUILLERMINA WHITE RN - 03/19/2012 11:22 QUILLER MACHINE FIXER Neurologic Swallowing Difficulty/Aspiration Risk : None Characteristics of Speech : Clear GUILLERMINA WHITE RN - 03/19/2012 11:22 QUILLER MACHINE FIXER Lower Extremity Nail Bed Color Feet Grid Left Foot : [place] Right Foot : [place] GUILLERMINA WHITE RN - 03/19/2012 11:22 QUILLER MACHINE FIXER Capillary Refill Feet Grid Left Foot : < 2 seconds Right Foot : < 2 seconds GUILLERMINA WHITE RN - 03/19/2012 11:22 QUILLER MACHINE FIXER NV Lower Extremity Color Grid Left : [place] Right : [place] GUILLERMINA WHITE RN - 03/19/2012 11:22 QUILLER MACHINE FIXER NV Lower Extremity Temperature Grid Left : Warm Right : Warm GUILLERMINA WHITE RN - 03/19/2012 11:22 QUILLER MACHINE FIXER Lower Extremity Peripheral Pulses Grid Popliteal Pulse, Left : 2+ Normal Popliteal Pulse, Right : 2+ Normal Posttibial Pulse, Left : 2+ Normal Posttibial Pulse, Right : 2+ Normal Dorsalis Pedis Pulse, Left : 2+ Normal Dorsalis Pedis Pulse, Right : 2+ Normal GUILLERMINA WHITE RN - 03/19/2012 11:22 QUILLER MACHINE FIXER Lower Extremity Sensation NV Grid Medial/Lateral Surfaces Sole of Left Foot : Absent Medial/Lateral Surfaces Sole of Right Foot : Absent Web Space Between Great and Second Toe Left Foot : Absent Web Space Between Great and Second Toe Right Foot : Absent GUILLERMINA WHITE RN - 03/19/2012 11:22 QUILLER MACHINE FIXER Lower Extremity Strength NV Grid Plantar Flexion Left Foot : Zero 0 Plantar Flexion Right Foot : Zero 0 Dorsiflex Foot/Extend Toes Left : Zero 0 Dorsiflex Foot/Extend Toes Right : Zero 0 GUILLERMINA WHITE RN - 03/19/2012 11:22 QUILLER MACHINE FIXER Upper Extremity Nail Bed Color Hands Grid Left Hand : [place] Right Hand : [place] GUILLERMINA WHITE RN - 03/19/2012 11:22 QUILLER MACHINE FIXER Capillary Refill Hand Grid Left Hand : < 2 seconds Right Hand : < 2 seconds GUILLERMINA WHITE RN - 03/19/2012 11:22 QUILLER MACHINE FIXER Upper Extremity Color Grid Left : [place] Right : [place] GUILLERMINA WHITE RN - 03/19/2012 11:22 QUILLER MACHINE FIXER Upper Extremity Temperature Grid Left : Warm Right : Warm GUILLERMINA WHITE RN - 03/19/2012 11:22 QUILLER MACHINE FIXER NV Upper Extremity Pulses Grid Radial Pulse, Left : 2+ Normal Radial Pulse, Right : 2+ Normal GUILLERMINA WHITE RN - 03/19/2012 11:22 QUILLER MACHINE FIXER Modified Temitope Activity : Moves 2 extremities voluntarily or on command Respiratory : Able to deep breathe and cough freely Circulation : BP 20-49% of preanesthetic level Consciousness : Fully awake O2 Saturation : Needs oxygen to maintain > 92% Temitope l Score : 7 GUILLERMINA WHITE RN - 03/19/2012 11:22 QUILLER MACHINE FIXER Johnson Johnson Agitation Sedation Scale (RASS) : Alert and calm RASS Score : 0 GUILLERMINA WHITE RN - 03/19/2012 11:22 QUILLER MACHINE FIXER Regino Sensory Perception Regino : No impairment Moisture Regino : Rarely moist Activity Regino : Walks frequently Mobility Regino : Very limited Nutrition Regino : Excellent Friction and Shear Regino : No apparent problem Regino Score : 21 GUILLERMINA WHITE RN - 03/19/2012 11:22 QUILLER MACHINE FIXER Hendrich II Fall Risk Confusion/Disorientation Hendrich : [...] 5 GUILLERMINA WHITE RN - 03/19/2012 11:22 QUILLER MACHINE FIXER Education General Patient Education Powergrid Topics : Activity limitations/expectations, Disease process, Pain Management, Physical limitations, Plan of care, Postoperative instructions, Surgery, Use of pain scale(s) Individuals Taught : Patient Barriers to Learning : None evident Teaching Method : Explanation Teaching Evaluation : Needs reinforcement, Verbalizes understanding Education Referral Made To : Physical Therapy GUILLERMINA WHITE RN - 03/19/2012 11:22 QUILLER MACHINE FIXER Source: [facility] POWERCHART Document Id: [id number] LER MACHINE FIXER documented in this encounter Plan of Treatment Not on filedocumented as of this encounter Visit Diagnoses Not on filedocumented in this encounter
--- OUTSIDE RECORDS SUMMARY | 2022-02-10 13:25 | XMS_ITS | Encounter Summary ---
:1970 Author Organization [facility] Address [address] [place] [address] Care Team Providers Name Role Phone Unavailable Primary Care Provider Unavailable Encounter Details Date Type Department Care Team Description 03/19/2012 Hospital Encounter HX NO MAPPING Noah Michaud M.D. [address] [place], [place] [phone] (Wo rk) Social History [...]
--- OUTSIDE RECORDS SUMMARY | 2022-02-10 13:25 | XMS_ITS | Encounter Summary ---
:1970 Author Organization [facility] Address [address] [place] [address] Care Team Providers Name Role Phone Unavailable Primary Care Provider Unavailable Encounter Details Date Type Department Care Team Description 03/06/2012 Hospital Encounter HX [facility] Alcides Whitehead M.D. Social History Tobacco Use Types Packs/Day Years Used Date Smoking Tobacco: Never Assessed Sex Assigned at Date Recorded Not on file documented as of this encounter Last Filed Vital Signs Vital Sign Reading Time Taken Comments Blood Pressure 136/80 03/06/2012 10:56 AM GENERATOR SWITCHBOARD OPERATOR Pulse 82 03/06/2012 10:56 AM GENERATOR SWITCHBOARD OPERATOR Temperature - - Respiratory Rate - - Oxygen Saturation - - Inhaled Oxygen Concentration - - Weight 96.7 kg (213 lb 3 oz) 03/06/2012 10:56 AM GENERATOR SWITCHBOARD OPERATOR Height 161 cm (5' 3.39) 03/06/2012 10:56 AM GENERATOR SWITCHBOARD OPERATOR Body Mass Index 37.31 03/06/2012 10:56 AM GENERATOR SWITCHBOARD OPERATOR documented in this encounter Medications at Time of Discharge Medication Sig Dispensed Refills Start Date End Date IBUPROFEN ORAL Take by mouth as needed. 0 011 documented as of this encounter Progress Notes Alcides Whiteehad M.D. 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 FAMILY HISTORY Is negative for anesthesia or [...] and surgery per Dr. Michaud and the System Admin. Alcides Whitehead M.D./katt Electronically Signed By: ALCIDES WHITEHEAD MD On: 03/08/2012 07:54 AM Source: [facility] MHSDOLBEYNONRADSYS Document Id: [id number] RATOR SWITCHBOARD OPERATOR documented in this encounter Miscellaneous Notes Miscellaneous - Alcides Whitehead M.D. - 03/06/2012 11:31 AM CST Ambulatory Patient Summary [address] [id number] Visit Information Name: CANDY CORADO Current Date: 03/06/2012 11:31:28 Physicians Attending Provider: ALCIDES WHITEHEAD MD Primary Care Provider: WILLEM SAEED RN, SECURITY BUSINESS ANALYST Your Medications Here is a list of [...] Date Time Location Reason Provider 03/19/2012 10:00 [facility] Surgery OP OP/DS Left knee arthroscopy, partial meniscectomy 04/02/2012 10:30 [facility] post op L knee Eder BARRERA, Lars Davis Your Goals/Additional instructions: Source: [facility] POWERCHART Document Id: [id number] RATOR SWITCHBOARD OPERATOR Martin - Alcides Whitehead M.D. - 03/06/2012 11:31 AM CST Ambulatory Depart Summary [facility] [address] [place] [address] Visit Information Name: CANDY CORADO Visit Date: 03/06/2012 11:31:27 Attending Provider: ALCIDES WHITEHEAD MD Primary Care Provider: WILLEM SAEED RN, SECURITY BUSINESS ANALYST CANDY CORADO has been given the following [...] your provider for clarification. Additional Information: Source: [facility] [place] Document Id: [id number] RATOR SWITCHBOARD OPERATOR Martin - Latrice Hernandez L.P.N. - 03/06/2012 11:00 AM CST Obstructive Sleep Apnea Obstructive Sleep Apnea Entered On: 03/06/2012 11:02 GENERATOR SWITCHBOARD OPERATOR Performed On: 03/06/2012 11:00 GENERATOR SWITCHBOARD OPERATOR by LATRICE HERNANDEZ LPN RT GINGER Screening Known Obstructive Sleep Apnea : No Risk for Sleep Apnea : No LATRICE HERNANDEZ LPN, - 03/06/2012 11:00 GENERATOR SWITCHBOARD OPERATOR GINGER Assessment Do you have high blood pressure or have you been told to take medication for high blood pressure? : No Frequency of Snoring : Never Frequency of Gasping, Choking, Snorting : Never Neck Circumference (cm) : 42/43 Total Number of Historical Features : 0 LATRICE HERNANDEZ LPN, - 03/06/2012 11:00 GENERATOR SWITCHBOARD OPERATOR Source: [facility] POWERCHART Document Id: [id number] RATOR SWITCHBOARD OPERATOR Miscellaneous - Latrice Hernandez L.P.N. - 03/06/2012 10:56 AM CST Adult Stone Cutter Intake/History Adult Stone Cutter Intake/History Entered On: 03/06/2012 10:59 GENERATOR SWITCHBOARD OPERATOR Performed On: 03/06/2012 10:56 GENERATOR SWITCHBOARD OPERATOR by LATRICE HERNANDEZ LPN, RT Intake Chief [...] LATRICE HERNANDEZ LPN, RT - 03/06/2012 10:56 GENERATOR SWITCHBOARD OPERATOR General Info Information Given By : Patient Preferred Communication Mode : Verbal Languages : French LATRICE HERNANDEZ LPN, RT - 03/06/2012 10:56 GENERATOR SWITCHBOARD OPERATOR Subjective Pain Symptoms : No LATRICE HERNANDEZ LPN, RT - 03/06/2012 10:56 GENERATOR SWITCHBOARD OPERATOR Dependent Habits Tobacco Use/Currently Using : Yes Exposure to Tobacco Smoke : Patient smokes Smoking Status : Current every day smoker LATRICE HERNANDEZ LPN, RT - 03/06/2012 10:56 GENERATOR SWITCHBOARD OPERATOR Tobacco Use Grid Type : Cigarettes Cigarette Use Packs/Day : 0.5 LATRICE HERNANDEZ LPN, RT 03/06/2012 10:56 GENERATOR SWITCHBOARD OPERATOR Caffeine Use Grid Caffeine Use : Current Type : Soft drinks Frequency : Daily LATRICE HERNANDEZ LPN, RT - 03/06/2012 10:56 GENERATOR SWITCHBOARD OPERATOR Recreational Drug Use Grid Drug Use : None LATRICE HERNANDEZ LPN, RT - 03/06/2012 10:56 GENERATOR SWITCHBOARD OPERATOR Allergy Allergies (Active) Demerol HCl Estimated Onset Date: Unspecified ; Created By: WADE DAIGLE LPN; Reaction Status: Active ; Category: Drug ; Substance: Demerol HCl ; Type: Allergy ; Updated By: WADE DAIGLE LPN;Reviewed Date: 02/07/2012 9:05 CDT Source: [facility] [place] Document Id: [id number] RATOR SWITCHBOARD OPERATOR documented in this encounter Plan of Treatment Not on filedocumented as of this encounter Visit Diagnoses Not on filedocumented in this encounter
--- OUTSIDE RECORDS SUMMARY | 2022-02-10 13:25 | XMS_ITS | Encounter Summary ---
:1970 Author Organization [facility] Address [address] [place] [address] Care Team Providers Name Role Phone Unavailable Primary Care Provider Unavailable Encounter Details Date Type Department Care Team Description 03/28/2013 Hospital Encounter HX [facility] Zita Saeed APRN, C.N.P., D. N.P. [address] [place] [address] (Wo rk) Social History Tobacco Use Types Packs/Day Years Used Date Smoking Tobacco: Never Assessed Sex Assigned at Date Recorded Not on file documented as of this encounter Last Filed Vital Signs Vital Sign Reading Time Taken Comments Blood Pressure 122/70 03/28/2013 8:16 AM BLOOD COLLECTOR Pulse 78 03/28/2013 8:16 AM BLOOD COLLECTOR Temperature - - Respiratory Rate 16 03/28/2013 8:16 AM BLOOD COLLECTOR Oxygen Saturation - - Inhaled Oxygen Concentration - - Weight 101 kg (223 lb 1.7 oz) 03/28/2013 8:16 AM BLOOD COLLECTOR Height 161 cm (5' 3.39) 03/28/2013 8:16 AM BLOOD COLLECTOR Body Mass Index 39.04 03/28/2013 8:16 AM BLOOD COLLECTOR documented in this encounter Medications at Time of Discharge Medication Sig Dispensed Refills Start Date End Date IBUPROFEN ORAL Take by mouth as needed. 0 011 documented as of this encounter Progress Notes Zita Saeed APRN, C.N.P. - 03/28/2013 8:03 AM CST [id number] CHIEF COMPLAINT/REASON FOR VISIT Recurrent boils. HISTORY [...] Herzog/aysha Electronically Signed By: ZITA SAEED RN, CALCULUS TEACHER On: 03/31/2013 01:14 PM Source: [facility] MHSDOLBEYNONRADSYS Document Id: [id number] D COLLECTOR documented in this encounter Miscellaneous Notes Miscellaneous - Zita Saeed APRN, C.N.P. - 03/31/2013 7:57 AM CST Normal Results Letter 31 March 2013 CANDY GRULLON [address] [address] [place] [id number] Dear CANDY CHOWSON, Your culture result from the wound showed staph. The antibiotic prescribed should cover this. Pleasefollow up with us as we discussed during your visit or sooner if you have any concerns. If you have questions or concerns, please do not hesitate to call our office. Result Name Current Result Culture Wound Aerobic POS 03/28/2013 Sincerely, ZITA SAEED [address] [place] [id number] Electronic Signature Electronically Signed By: ZITA SAEED RN, CALCULUS TEACHER On: 31 March 2013 This document has images extracted. Source: [facility] POWERCHART Document Id: [id number] Electronically signed by Maryann [facility] Lumber Kiln Operator [id number] at 09/20/2016 1:39 PM CDT Miscellaneous - Zita Saeed APRN, C.N.P. - 03/28/2013 8:55 AM CST Ambulatory Patient Summary [address] [address] Visit Information Name: CANDY GRULLON [facility] Number: [id number] Current Date: 03/28/2013 08:55:45 Physicians Attending Provider: ZITA SAEED RN, CALCULUS TEACHER Primary Care Provider: ZITA SAEED RN, CALCULUS TEACHER CANDY GRULLON has been given the following [...] appointment detail needed. Your Goals/Additional instructions: Source: [facility] POWERCHART Document Id: [id number] D COLLECTOR Miscellaneous - Zita Saeed APRN, C.N.P. - 03/28/2013 8:55 AM CST Ambulatory Depart Summary [address] [address] Visit Information Name: CANDY GRULLON [facility] Number: [id number] Visit Date: 03/28/2013 08:55:44 Attending Provider: ZITA SAEED RN, CALCULUS TEACHER Primary Care Provider: ZITA SAEED RN, CALCULUS TEACHER CANDY GRULLON has been given the following [...] in case of emergency. Additional Information: Source: [facility] POWERCHART Document Id: [id number] D COLLECTOR Miscellaneous - Zita Saeed APRN, C.N.P. - 03/28/2013 8:53 AM CST Work Excuse 28 March 2013 CANDY GRULLON [address] [id number] Dear CANDY GRULLON, You were examined in [...] 03/29/13 Notes: _ Sincerely, ZITA SAEED [address] [place] [address] Electronic Signature Electronically Signed By: ZITA SAEED RN, CALCULUS TEACHER On: 28 March 2013 This document has images extracted. Source: [facility] iCrederity Document Id: [id number] Electronically signed by Maryann [facility] Lumber Kiln Operator [id number] at 09/20/2016 1:39 PM CDT Abbeycellaneous - Jasmin Douglas LCarineP.N. - 03/28/2013 8:22 AM CST Meaningful Use Influenza Exclusion Meaningful Use Influenza Exclusion Entered On: 03/28/2013 8:22 BLOOD COLLECTOR Performed On: 03/28/2013 8:22 BLOOD COLLECTOR by JASMIN DOUGLAS LPN Influenza Vaccine Exclusion Influenza Vaccine Exclusion : Patient declined JASMIN DOUGLAS LPN - 03/28/2013 8:22 BLOOD COLLECTOR Source: [facility] iCrederity Document Id: [id number] BLOOD COLLECTOR!3 D COLLECTOR Abbeycellkatie - Jasmin Douglas L.P.N. - 03/28/2013 8:22 AM CST Health Assessment Health Assessment Entered On: 03/28/2013 8:22 BLOOD COLLECTOR Performed On: 03/28/2013 8:22 BLOOD COLLECTOR by JASMIN DOUGLAS LPN Health Assessment Complete Health Assessment Complete or Modified : Annual Health Assessment Annual Health Assessment Completed : Yes JASMIN DOUGLAS LPN - 03/28/2013 8:22 BLOOD COLLECTOR Nutrition Nutrition Risk Factors by History Adult : None JASMIN DOUGLAS LPN - 03/28/2013 8:22 BLOOD COLLECTOR Functional Current Daily Living Assistance : None JASMIN DOUGLAS LPN - 03/28/2013 8:22 BLOOD COLLECTOR Dependent Habits Tobacco Use/Currently Using : Yes Exposure to Tobacco Smoke : Patient smokes Smoking Status : Current every day smoker JASMIN DOUGLAS LPN - 03/28/2013 8:22 BLOOD COLLECTOR Tobacco Use Grid Type : Cigarettes Cigarette Use Packs/Day : 0.5 Last Use : 2 weeks ago JASMIN DOUGLAS LPN - 03/28/2013 8:22 BLOOD COLLECTOR Caffeine Use Grid Caffeine Use : Current Type : Soft drinks Frequency : Daily JASMIN DOUGLAS LPN - 03/28/2013 8:22 BLOOD COLLECTOR Recreational Drug Use Grid Drug Use : None JASMIN DOUGLAS LPN - 03/28/2013 8:22 BLOOD COLLECTOR Psychosocial Domestic Abuse Concerns : None JASMIN DOUGLAS LPN - 03/28/2013 8:22 BLOOD COLLECTOR Advance Directive Advanced Directives : Yes JASMIN DOUGLAS LPN - 03/28/2013 8:22 BLOOD COLLECTOR Educ Needs Learning Style Preference Adult Grid Patient : Demonstration, Printed materials Family : None JASMIN DOUGLAS LPN - 03/28/2013 8:22 BLOOD COLLECTOR Source: [facility] iCrederity Document Id: [id number] BLOOD COLLECTOR!33 D COLLECTOR Miscellaneous - Jasmin Douglas LCarinePCarineNCarine - 03/28/2013 8:16 AM CST Adult Assembly Hand Intake/History Adult Assembly Hand Intake/History Entered On: 03/28/2013 8:21 BLOOD COLLECTOR Performed On: 03/28/2013 8:16 BLOOD COLLECTOR by JASMIN DOUGLAS LPN Intake Chief Complaint [...] kg/m2 JASMIN DOUGLAS LPN - 03/28/2013 8:16 BLOOD COLLECTOR General Info Information Given By : Patient Preferred Communication Mode : Verbal Languages : Icelandic JASMIN DOUGLAS Scout [facility] - 03/28/2013 8:16 BLOOD COLLECTOR Subjective Pain Symptoms : Yes EVERETTE DOUGLASTANNER [place] [facility] - 03/28/2013 8:16 BLOOD COLLECTOR Pain Pain Assessment Grid Pain 1 Location : Breast Laterality : Left Intensity : 3 EVERETTE DOUGLASTANNER [place] [facility] - 03/28/2013 8:16 BLOOD COLLECTOR Dependent Habits Tobacco Use/Currently Using : Yes Tobacco Use/Advised to Quit : Yes Exposure to Tobacco Smoke : Patient smokes Smoking Status : Current every day smoker DOUGLAS, JASMIN R [facility] - 03/28/2013 8:16 BLOOD COLLECTOR Tobacco Use Grid Type : Cigarettes Cigarette Use Packs/Day : 0.5 Last Use : 2 weeks ago JASMIN DOUGLAS [facility] - 03/28/2013 8:16 BLOOD COLLECTOR Alcohol Use : Yes SEN JASMIN R [facility] - 03/28/2013 8:16 BLOOD COLLECTOR Caffeine Use Grid Caffeine Use : Current Type : Soft drinks Frequency : Daily JASMIN DOUGLAS [facility] - 03/28/2013 8:16 BLOOD COLLECTOR Recreational Drug Use Grid Drug Use : None SEN JASMIN [place] [facility] - 03/28/2013 8:16 BLOOD COLLECTOR Source: [facility] POWERCHART Document Id: [id number] BLOOD COLLECTOR!49 D COLLECTOR documented in this encounter Plan of Treatment Not on filedocumented as of this encounter Procedures Procedure Name Priority Date/Time Associated Diagnosis Comme nts BACTERIAL CULTURE, Routine 03/28/2013 8:54 AM Res ults for this AEROBIC BLOOD COLLECTOR procedure are i n the results section. documented in this encounter Results (ABNORMAL) Bacterial Culture, Aerobic (03/28/2013 8:54 AM BLOOD COLLECTOR) Patholo gist Method Time Signature Wound Culture [...] Laterality Skin (Axilla, 03/28/2013 8:54 AM Right) BLOOD COLLECTOR Organism Antibiotic Method Susceptibility Staphylococcus lugdunensis Ciprofloxacin [...]
--- OUTSIDE RECORDS SUMMARY | 2022-02-10 13:25 | XMS_ITS | Encounter Summary ---
:1970 Author Organization [facility] Address [address] [place] [address] Care Team Providers Name Role Phone Unavailable Primary Care Provider Unavailable Encounter Details Date Type Department Care Team Description 08/01/2013 [facility] Willem Saeed APRN, C.N.P., D. N.P. [address] [place] [address] (Wo rk) Social History Tobacco [...] Body Mass Index 39.77 03/28/2013 8:16 AM AV SPECIALIST documented in this encounter Medications at Time of Discharge Medication Sig Dispensed Refills Start Date End Date IBUPROFEN ORAL Take by mouth as needed. 0 011 documented as of this encounter Progress Notes Willem Saeed APRN, C.N.P. - 08/01/2013 9:39 AM CDT [id number] CHIEF COMPLAINT/REASON FOR VISIT Cystic skin lesions. [...] plan. Patient/Child/Caregiver expressed understanding of the content. Chanel Herzog/mikey Electronically Signed By: WILLEM SAEED RN, RESEARCH HYDROLOGIST On: 08/19/2013 04:57 PM Source: [facility] MHSDOLBEYNONRADSYS Document Id: [id number] documented in this encounter Miscellaneous Notes Miscellaneous - Willem Saeed APRN, C.N.P. - 08/01/2013 10:41 AM CDT Ambulatory Patient Summary [address] [place], [place] [phone] Visit Information Name: CANDY GRULLON [facility] Number: [id number] Current Date: 08/01/2013 10:41:01 Physicians Attending Provider: WILLEM SAEED RN, RESEARCH HYDROLOGIST Primary Care Provider: WILLEM SAEED RN, RESEARCH HYDROLOGIST CANDY GRULLON has been given the following [...] day x 14 day(s) New Routed to [address] [id number] Stop Taking the Following Medications: Medication list [...] emergency. Electronically Signed By: WILLEM SAEED RN, RESEARCH HYDROLOGIST Signed On:01-AUG-2013 10:40:53 Your Allergies & Intolerances [...] appointment detail needed. Your Goals/Additional instructions: Source: [facility] POWERCHART Document Id: [id number] Miscellaneous - Willem Saeed APRN, C.N.P. - 08/01/2013 10:40 AM CDT Ambulatory Discharge Medication List [address] [place], [place] [phone] Visit Information Name: CANDY GRULLON [facility] Number: [id number] Visit Date: 08/01/2013 10:40:58 Attending [...] day x 14 day(s) New Routed to [address] [address] Stop Taking the Following Medications: Medication list [...] emergency. Electronically Signed By: WILLEM SAEED RN, RESEARCH HYDROLOGIST Signed On:01-AUG-2013 10:40:53 Additional Information: Source: [facility] POWERCHART Document Id: [id number] Miscellaneous - Johnnie Sher L.PCarineN. - 08/01/2013 9:49 AM CDT Adult Design Agent Intake/History Adult Design Agent Intake/History Entered On: 08/01/2013 9:54 CDT Performed On: 08/01/2013 9:49 CDT by JOHNNIE SHER WOOD GRAINER Intake Chief Complaint : Reoccuring cysts [id number]. left cheek, 2 on right breast, 2 [...] Preferred Communication Mode : Verbal Languages : Khmer JOHNNIE SHER [facility] - 08/01/2013 9:49 CDT Subjective Pain Symptoms : Yes JOHNNIE SHER LPN - 08/01/2013 9:49 CDT Pain Pain Assessment Grid Pain 1 Location : Breast Laterality : Bilateral JOHNNIE SHER [facility] - 08/01/2013 9:49 CDT Dependent Habits Tobacco Use/Currently Using : Yes Exposure to Tobacco Smoke : Patient smokes Smoking Status : Current every day smoker JOHNNIE SHER [facility] - 08/01/2013 9:49 CDT Tobacco Use Grid Type : Cigarettes Cigarette Use Packs/Day : 0.5 JOHNNIE SHER [facility] - 08/01/2013 9:49 CDT Alcohol Use : Yes JOHNNIE SHER [facility] - 08/01/2013 9:49 CDT Caffeine Use Grid Caffeine Use : Current Type : Soft drinks Frequency : Daily JOHNNIE SHER LPN - 08/01/2013 9:49 CDT Recreational Drug Use Grid Drug Use : None JOHNNIE SHER LPN - 08/01/2013 9:49 CDT Source: QuriCHART Document Id: [id number] CDT!44 documented in this encounter Plan of Treatment Not on filedocumented as of this encounter Visit Diagnoses Not on filedocumented in this encounter
--- OUTSIDE RECORDS SUMMARY | 2022-02-10 13:25 | XMS_ITS | Encounter Summary ---
:1970 Author Organization [facility] Address [address] [place] [address] Care Team Providers Name Role Phone Unavailable Primary Care Provider Unavailable Encounter Details Date Type Department Care Team Description 02/23/2012 Hospital Encounter [facility] XRAY Provider, Histori anahi Social History Tobacco [...]
--- OUTSIDE RECORDS SUMMARY | 2022-02-10 13:25 | XMS_ITS | Encounter Summary ---
:1970 Author Organization [facility] Address [address] [place] [address] Care Team Providers Name Role Phone Unavailable Primary Care Provider Unavailable Encounter Details Date Type Department Care Team Description 02/21/2012 Hospital Encounter HX [facility] ORTHO Lars Gaines, P.A.-C. Social History [...] Lars Gaines - 02/21/2012 3:20 PM CDT [id number] CLINIC ENCOUNTER SUBJECTIVE: Miss Hicks is a [...] half that time was spent in direct [id number] counseling and educating the patient about her condition as well as treatment options that are available to her. HOLLY Fraire/george cc: Source: [facility] Document Id: [id number] Electronically signed by Maryann, [facility] Resin Painter [id number] at 09/23/2016 9:11 PM CDT documented in this encounter Plan [...] AM CDT) P athologist Signature HXSPECIMAN [facility] LAB Specimen (Source) Anatomical Collection Method Collection Time Re ceived Time Location / / Volume Laterality 02/23/2012 10:35 AM CDT Historical Provider LAB HISTORICAL ORDERS Performing Organization Address City/State/ZIP Code Phon e Number [facility] documented in this encounter Visit Diagnoses Not on filedocumented in this encounter
--- OUTSIDE RECORDS SUMMARY | 2022-02-10 13:25 | XMS_ITS | Encounter Summary ---
:1970 Author Organization [facility] Address [address] [place] [address] Care Team Providers Name Role Phone Unavailable Primary Care Provider Unavailable Encounter Details Date Type Department Care Team Description 05/08/2012 Hospital Encounter HX [facility]ILY ME Denise Johnson P.A.-C. [address] [place] [address] (Wo rk) Social History Tobacco Use Types Packs/Day Years Used Date Smoking Tobacco: Never Assessed Sex Assigned at Date Recorded Not on file documented as of this encounter Last Filed Vital Signs Vital Sign Reading Time Taken Comments Blood Pressure 126/68 05/08/2012 1:08 PM COUNTY PROGRAM TECHNICIAN Pulse 93 05/08/2012 1:08 PM COUNTY PROGRAM TECHNICIAN Temperature - - Respiratory Rate 20 05/08/2012 1:08 PM COUNTY PROGRAM TECHNICIAN Oxygen Saturation - - Inhaled Oxygen Concentration - - Weight 98.8 kg (217 lb 13 oz) 05/08/2012 1:08 PM COUNTY PROGRAM TECHNICIAN Height - - Body Mass Index 38.12 03/19/2012 9:08 AM COUNTY PROGRAM TECHNICIAN documented in this encounter Medications at Time of Discharge Medication Sig Dispensed Refills Start Date End Date IBUPROFEN ORAL Take by mouth as needed. 0 011 documented as of this encounter Progress Notes Chandni Johnson - 05/08/2012 1:05 PM CST [id number] CHIEF COMPLAINT/REASON FOR VISIT This is a [...] any other questions or concerns. Chandni Johnson P.A.-C./[facility] Electronically Signed By: CHANDNI JOHNSON On: 05/09/2012 08:40 AM Source: [facility] MHSDOLBEYNONRADSYS Document Id: [id number] TY PROGRAM TECHNICIAN documented in this encounter Miscellaneous Notes Miscellaneous - Chandni Johnson - 05/08/2012 2:38 PM CST Ambulatory Patient Summary [address] [place] [address] Visit Information Name: CANDY GRULLON [facility] Number: [id number] Current Date: 05/08/2012 14:38:14 Physicians Attending Provider: CHANDNI JOHNSON Primary Care Provider: WILLEM SAEED RN, EMERGENCY MANAGEMENT SYSTEM DIRECTOR Your Medications Here is a list of [...] BARRERA, Lars Davis Your Goals/Additional instructions: Source: [facility] POWERCHART Document Id: [id number] TY PROGRAM TECHNICIAN Miscellaneous - Chandni Johnson - 05/08/2012 2:38 PM CST Ambulatory Depart Summary [address] [place] [address] Visit Information Name: CANDY GRULLON [facility] Number: [id number] Visit Date: 05/08/2012 14:38:13 Attending Provider: CHANDNI JOHNSON Primary Care Provider: WILLEM SAEED RN, EMERGENCY MANAGEMENT SYSTEM DIRECTOR CANDY GRULLON has been given the following [...] your provider for clarification. Additional Information: Source: [facility] POWERCHART Document Id: [id number] TY PROGRAM TECHNICIAN Martin - Chandni Johnson - 05/08/2012 1:38 PM CST School or Work Excuse School or Work Excuse Entered On: 05/08/2012 13:39 COUNTY PROGRAM TECHNICIAN Performed On: 05/08/2012 13:38 COUNTY PROGRAM TECHNICIAN by CHANDNI JOHNSON School or Work Excuse Date Patient Seen : 05/08/2012 COUNTY PROGRAM TECHNICIAN Comment : Candy was seen in the clinic today for x-rays. CHANNDI JOHNSON - 05/08/2012 13:38 COUNTY PROGRAM TECHNICIAN Source: [facility] POWERCHART Document Id: [id number] TY PROGRAM TECHNICIAN Miscellaneous - Rafia Castro L.P.N. - 05/08/2012 1:08 PM CST Adult Angle Shearer Intake/History Adult Angle Shearer Intake/History Entered On: 05/08/2012 13:14 COUNTY PROGRAM TECHNICIAN Performed On: 05/08/2012 13:08 COUNTY PROGRAM TECHNICIAN by RAFIA JETER LPN Intake Chief Complaint [...] Dosing Weight Clinic : 98.80kg RAFIA JETER COP EXAMINER - 05/08/2012 13:08 COUNTY PROGRAM TECHNICIAN Subjective Pain Symptoms : Yes RAFIA JETER LPN - 05/08/2012 13:08 COUNTY PROGRAM TECHNICIAN Pain Pain Assessment Grid Pain 1 Location : Chest Intensity : 8 RAFIA JETER LPN - 05/08/2012 13:08 COUNTY PROGRAM TECHNICIAN Dependent Habits Tobacco Use/Currently Using : No Tobacco Use/Last 12 months : Yes Exposure to Tobacco Smoke : Patient smokes Smoking Status : Former smoker RAFIA JETER LPN - 05/08/2012 13:08 COUNTY PROGRAM TECHNICIAN Tobacco Use Grid Type : Cigarettes Cigarette Use Packs/Day : 0.5 Last Use : 2 weeks ago RAFIA JETER LPN - 05/08/2012 13:08 COUNTY PROGRAM TECHNICIAN Alcohol Use : Yes RAFIA JETER COP EXAMINER - 05/08/2012 13:08 COUNTY PROGRAM TECHNICIAN Caffeine Use Grid Caffeine Use : Current Type : Soft drinks Frequency : Daily RAFIA JETER COP EXAMINER - 05/08/2012 13:08 COUNTY PROGRAM TECHNICIAN Recreational Drug Use Grid Drug Use : None RAFIA JETER COP EXAMINER - 05/08/2012 13:08 COUNTY PROGRAM TECHNICIAN Allergy Allergies (Active) Demerol HCl Estimated Onset Date: Unspecified ; Reactions: nausea ; Created By: RENEA MARTINEZ NP; Reaction Status: Active ; Category: Drug ; Substance: Demerol HCl ; Type: Allergy ; Updated By: RENEA MARTINEZ NP; Reviewed Date: 04/30/2012 8:19 COUNTY PROGRAM TECHNICIAN hydrocodone-acetaminophen Estimated Onset Date: Unspecified ; Reactions: vomiting ; Created By: RENEA MARTINEZ NP; Reaction Status: Active ; Category: Drug ; Substance: hydrocodone-acetaminophen ; Type: Allergy ; Severity: Severe ; Updated By: RENEA MARTINEZ NP; Source: Patient ; Reviewed Date: 04/30/2012 8:20 COUNTY PROGRAM TECHNICIAN Source: [facility] POWERCHART Document Id: [id number] TY PROGRAM TECHNICIAN documented in this encounter Plan of Treatment Not on filedocumented as of this encounter Visit Diagnoses Not on filedocumented in this encounter
--- OUTSIDE RECORDS SUMMARY | 2022-02-10 13:25 | XMS_ITS | Encounter Summary ---
:1970 Author Organization [facility] Address [address] [place] [address] Care Team Providers Name Role Phone Unavailable Primary Care Provider Unavailable Encounter Details Date Type Department Care Team Description 01/07/[address] [facility] Kenneth Merino M.D. [address] [place] [address] (Wo rk) Social History Tobacco Use Types Packs/Day Years Used Date Smoking Tobacco: Never Assessed Sex Assigned at Date Recorded Not on file documented as of this encounter Last Filed Vital Signs Vital Sign Reading Time Taken Comments Blood Pressure - - Pulse - - Temperature - - Respiratory Rate - - Oxygen Saturation - - Inhaled Oxygen Concentration - - Weight 102 kg (225 lb 15.5 oz) 01/07/2014 2:33 PM CDT Height 161 cm (5' 3.39) 01/07/2014 2:33 PM CDT Body Mass Index 39.54 01/07/2014 2:33 PM CDT documented in this encounter Medications at Time of Discharge Medication Sig Dispensed Refills Start Date End Date IBUPROFEN ORAL Take by mouth as needed. 0 011 documented as of this encounter Progress Notes Kenneth Merino M.D. - 01/07/2014 2:11 PM CDT [id number] CHIEF COMPLAINT/REASON FOR VISIT A 43-year-old female, who is here today for I and D of the infected cyst on her right cheek. Informed consent is obtained. The area is anesthetized with 1% lidocaine with epinephrine 3 mL following which the area is prepped and draped in a sterile fashion. A small 3 mm incision is made overlying the otherwise 2 cm x 1 cm raised purple fluctuant boil. Through the small incision a 5 mm incisionis made. Copious amount of sebaceous material and the serosanguineous discharge were expelled through the opening following which the area on the cheek appeared clean dry and intact without further evidence of any sebaceous cyst sac material. IMPRESSION/REPORT/PLAN Sebaceous cyst. PLAN: I&D of a sebaceous cyst as above. Given the location on cheek, I did place 1 small interrupted suture with 4-0 nylon. She may return in 5 days for suture removal. Discussed ongoing cares including warm moist packs to the area 2 to 3 times daily. Contact our office if any concerns of scarringand recurrent infection are discussed. The patient has all questions answered. Kenneth Merino M.D./mikey Electronically Signed By: KENNETH MERINO MD On: 01/08/2014 08:40 AM Source: [facility] MHSDOLBEYNONRADSYS Document Id: [id number] documented in this encounter Procedure Notes Reji Donaldson L.P.N. - 01/07/2014 2:33 PM CDT Procedure Documentation Procedure Documentation Entered On: 01/07/2014 14:34 CDT Performed On: 01/07/2014 14:33 CDT by REJI DONALDSON LPN Checklist Ambulatory Procedure : facial lesion REJI DONALDSON LPN - 01/07/2014 14:33 CDT Amb/Home Prep Complete Surgical/Procedure Consent Signed : Yes REJI DONALDSON LPN - 01/07/2014 14:33 CDT Procedure Site Prepped With : Alcohol, Betadine REJI DONALDSON LPN - 01/07/2014 14:33 CDT Vitals/Ht/Wt Temperature Core : 36.5 DegC(Converted to: 97.7 DegF) Height : 161 cm(Converted to: 5 ft 3 inch(es), 63 inch(es)) Actual Weight : 102.5 kg(Converted to: 226 lb 0 oz) Dosing Weight Clinic : 102.5 kg Clinic BSA : 2.14 Body Mass Index : 39.54 kg/m2 REJI DONALDSON LPN - 01/07/2014 14:33 CDT Preprocedural Pause Preprocedural Pause : 14:45 BANJO REPAIR PERSON Start Time : 14:46 BANJO REPAIR PERSON REJI DONALDSON LPN - 01/07/2014 16:07 CDT Correct Patient Identity : Patient verbalizes self Correct Procedure Site and Side : R side face Correct Procedure Site/Side Verified By : Patient/responsible libertarian, MD Site Marking : Yes REJI DONALDSON LPN - 01/07/2014 14:33 CDT Advance Directive Advanced Directives : Yes REJI DONALDSON LPN - 01/07/2014 14:33 CDT [facility] Document Id: [id number] CDT!22 documented in this encounter Plan of Treatment Not on filedocumented as of this encounter Visit Diagnoses Not on filedocumented in this encounter
--- OUTSIDE RECORDS SUMMARY | 2022-02-10 13:25 | XMS_ITS | Encounter Summary ---
:1970 Author Organization [facility] Address [address] [place] [address] Care Team Providers Name Role Phone Unavailable [...]
--- OUTSIDE RECORDS SUMMARY | 2022-02-10 13:25 | XMS_ITS | Encounter Summary ---
:1970 Author Organization [facility] Address [address] [place] [address] Care Team Providers Name Role Phone Unavailable Primary Care Provider Unavailable Encounter Details Date Type Department Care Team Description 12/24/2013 Hospital Encounter HX [facility] Kenneth Merino M.D. [address] [place] [address] (Wo rk) Social History Tobacco Use Types [...] Merino M.D. - 12/24/2013 9:03 AM CDT [id number] A 43-year-old female postsurgical menopause age 24. [...] MD On: 12/24/2013 11:59 AM Source: [facility] MHSDOLBEYNONRADSYS Document Id: [id number] documented in this encounter Miscellaneous Notes Miscellaneous - Reji Donaldson L.P.N. - 12/24/2013 9:18 AM CDT Adult Slide Machine Tender Intake/History Adult Slide Machine Tender Intake/History Entered On: 12/24/2013 9:20 CDT Performed [...] Information Given By : Patient Languages : Frisian Is Patient Female and 13-50 no hysterectomy [...] DONALDSON LPN - 12/24/2013 9:18 CDT Source: [employer] Document Id: [id number] CDT!42 documented in this encounter Plan of Treatment Not on filedocumented as of this encounter Visit Diagnoses Not on filedocumented in this encounter
--- OUTSIDE RECORDS SUMMARY | 2022-02-10 13:25 | XMS_ITS | Encounter Summary ---
:1970 Author Organization [facility] Address [address] [place] [address] Care Team Providers Name Role Phone Unavailable Primary Care Provider Unavailable Encounter Details Date Type Department Care Team Description 02/28/[address] [facility] Zackary Pro ra, R.N. [address] [place], [place] [address] Social History Tobacco Use [...] Pro, R.N. - 02/28/2012 12:00 AM CST [id number] [address] [facility] [address] [place] [address] SURGERY SCHEDULING CHECKLIST - Orthopedic Surgery* Patient Name: Candy Grullon Date of : 1970 Gender: female Patient Phone numbers: [phone] (home) Best Phone # to be contacted at: same as above BMI: There is no height or weight on file to calculate BMI. SURGERY DATE: Cancelled per pt, she is having it done in on 03/19 instead BL 03/01/12Surgeon: Ciro Michaud MDAnesthesia: Choice Procedure as written in on Consent: left knee arthroscopy, partial menisectomy PROCEDURE:Aarthroscopic Meniscectomy - KNEE SCOPE,MED/LAT MENISECTOMY - [id number] Surgeon Time: 40 minutes Diagnosis: left knee meniscus tear Pre-Op MD: Chuy Shipley [facility]- pt will schedule own preop Latex Allergy: No Work Comp: NO SPECIAL EQUIPMENT/SPECIAL INSTRUCTION Special Equipment needed:n/a Special Instructions/Prep: n/a Radiology Needs: None Xray location: [facility] date: 02/23/12 OT Post-Op appt needed: NO Metal Removal : No CPM Post-Op: no - Be sure MD has placed order on Order Set. Surgery Brochure given: Yes Clinic section complete - Please send this to the appropriate group(s). Back Case - fitted for back brace: {YES NO:744958} {Press DEL vasquez - if not Knee Manipulation:944682} If OT appt needed - setup one hour after clinic post-op appt - Total Joint class scheduled: Date Post-op appt made: {GAB LUCERO ORTHO POST-OP APPT:701893} Product Engineering Manager requested: {OVERHEAD CLEANER MAINTAINER YES/NO:050596} DISCHARGE PLANNING ASSESSMENT: Plan after Discharge: {GAB LUCERO DISCHARGE PLAN:151559} How are you getting home upon discharge from medical center? Social Service concerns: {Yes /No default.:867837::No} PATIENT NAME: Candy Grullon DATE: February 28, 2012 DATE OF :1970 BMI: There is no height or weight on file to calculate BMI. ANESTHESIA Any possibility you could be ? {YES NO:666659} LMP: Do you have a diagnosis of sleep apnea?{YES NO:630328} If yes, do you use a CPAP or BiPAP machine? {YES NO:546813} Do you have a history of snoring? {YES NO:411543} Do you have a history of ceasing breathing while sleeping? {YES NO:265079} Have you been told that it is difficult to place a breathing tube in your airway (intubate)? [facility]404406} Do you or a family member have a history of high fever after anesthesia (malignant hyperthermia)? {[facility] NEVER HAD SURGERY:528835} Do you have a history of severe nausea and vomiting after anesthesia? {[facility] NEVER HAD SURGERY:601130} Do you have motion sickness? {YES NO:943180} Do you have a history of severe reaction to anesthesia? {[facility] NEVER HAD SURGERY:517917} Do you have islam or other objections to blood transfusion? {YES NO PAT:466586} { Press delete if not required - [facility] LIST:722596} Completed by: [facility] GUZMANHXTRANSXRTFSYS Document Id: [id number] documented in this encounter Plan of Treatment Not on filedocumented as of this encounter Visit Diagnoses Not on filedocumented in this encounter
--- OUTSIDE RECORDS SUMMARY | 2022-02-10 13:25 | XMS_ITS | Encounter Summary ---
:1970 Author Organization [facility] Address [address] [place] [address] Care Team Providers Name Role Phone Unavailable [...]
--- OUTSIDE RECORDS SUMMARY | 2022-02-10 13:25 | XMS_ITS | Encounter Summary ---
:1970 Author Organization [facility] Address [address] [place] [address] Care Team Providers Name Role Phone Unavailable Primary Care Provider Unavailable Encounter Details Date Type Department Care Team Description 06/27/2012 Hospital Encounter HX [facility] FAMILY ME April Dwyer, N.P. [address] [place] [address] (Wo rk) Social History Tobacco Use Types Packs/Day Years Used Date Smoking Tobacco: Never Assessed Sex Assigned at Date Recorded Not on file documented as of this encounter Last Filed Vital Signs Vital Sign Reading Time Taken Comments Blood Pressure 124/74 06/27/2012 10:42 AM REGISTERED NURSE CARDIOVASCULAR ICU Pulse 68 06/27/2012 10:42 AM REGISTERED NURSE CARDIOVASCULAR ICU Temperature - - Respiratory Rate 16 06/27/2012 10:42 AM REGISTERED NURSE CARDIOVASCULAR ICU Oxygen Saturation - - Inhaled Oxygen Concentration - - Weight 98.8 kg (217 lb 13 oz) 06/27/2012 10:42 AM REGISTERED NURSE CARDIOVASCULAR ICU Height - - Body Mass Index 38.12 03/19/2012 9:08 AM REGISTERED NURSE CARDIOVASCULAR ICU documented in this encounter Medications at Time of Discharge Medication Sig Dispensed Refills Start Date End Date IBUPROFEN ORAL Take by mouth as needed. 0 011 documented as of this encounter Progress Notes Renea Dwyer, N.P. - 06/27/2012 10:29 AM CST [id number] CHIEF COMPLAINT/REASON FOR VISIT Sore throat. HISTORY [...] understanding of the content Chanel Zaragoza/aysha DOCID: [id number] Electronically Signed By: RENEA DWYER NP On: 07/01/2012 09:28 AM Source: [facility] MHSDOLBEYNCASPER Document Id: [id number] documented in this encounter Miscellaneous Notes Miscellaneous - Renea Dwyer N.P. - 06/27/2012 1:09 PM CST Ambulatory Patient Summary [address] [address] Visit Information Name: CANDY GRULLON [facility] Number: [id number] Current Date: 06/27/2012 13:09:26 Physicians Attending Provider: RENEA DWYER CAN LINE EXAMINER Primary Care Provider: WILLEM SAEED RN, [facility] Your Medications Here is a list of [...] No Appointments found Your Goals/Additional instructions: Source: [facility] POWERCHART Document Id: [id number] STERED NURSE CARDIOVASCULAR ICU Miscellaneous - Renea Dwyer N.P. - 06/27/2012 1:09 PM CST Ambulatory Depart Summary [address] [address] Visit Information Name: CANDY GRULLON [facility] Number: [id number] Visit Date: 06/27/2012 13:09:25 Attending Provider: RENEA DWYER CAN LINE EXAMINER Primary Care Provider: WILLEM SAEED RN, UTILITY MANAGER CANDY GRULLON has been given the [...] your provider for clarification. Additional Information: Source: [facility] POWERCHART Document Id: [id number] STERED NURSE CARDIOVASCULAR ICU Miscellaneous - Martinez Saenz LCarineP.N. - 06/27/2012 10:42 AM CST Adult Reinsurance Clerk Intake/History Adult Reinsurance Clerk Intake/History Entered On: 06/27/2012 10:45 REGISTERED NURSE CARDIOVASCULAR ICU Performed On: 06/27/2012 10:42 REGISTERED NURSE CARDIOVASCULAR ICU by MARTINEZ SAENZ LPN Intake Chief Complaint [...] 98.80kg MARTINEZ SAENZ LPN - 06/27/2012 10:42 REGISTERED NURSE CARDIOVASCULAR ICU General Info Information Given By : Patient Languages : Urdu MARTINEZ SAENZ [facility] 06/27/2012 10:42 REGISTERED NURSE CARDIOVASCULAR ICU Subjective Pain Symptoms : Yes MARTINEZ SAENZ [facility] - 06/27/2012 10:42 REGISTERED NURSE CARDIOVASCULAR ICU Pain Pain Assessment Grid Pain 1 Location : Throat Laterality : Bilateral Intensity : 8 MARTINEZ SAENZ [facility] - 06/27/2012 10:42 REGISTERED NURSE CARDIOVASCULAR ICU Dependent Habits Tobacco Use/Currently Using : Yes Tobacco Use/Advised to Quit : Yes Exposure to Tobacco Smoke : Patient smokes Smoking Status : Current every day smoker ROSARIO MARTINEZ [place] [facility] - 06/27/2012 10:42 REGISTERED NURSE CARDIOVASCULAR ICU Tobacco Use Grid Type : Cigarettes Cigarette Use Packs/Day : 0.5 Last Use : 2 weeks ago MARTINEZ SAENZ [facility] - 06/27/2012 10:42 REGISTERED NURSE CARDIOVASCULAR ICU Caffeine Use Grid Caffeine Use : Current Type : Soft drinks Frequency : Daily MARTINEZ SAENZ [facility] 06/27/2012 10:42 REGISTERED NURSE CARDIOVASCULAR ICU Recreational Drug Use Grid Drug Use : None MARTIENZ SAENZ [facility] 06/27/2012 10:42 REGISTERED NURSE CARDIOVASCULAR ICU Allergy Allergies (Active) Demerol HCl Estimated Onset Date: Unspecified ; Reactions: nausea ; Created By: RENEA DWYER NP; Reaction Status: Active ; Category: Drug ; Substance: Demerol HCl ; Type: Allergy ; Updated By: RENEA DWYER NP; Reviewed Date: 05/08/2012 13:14 REGISTERED NURSE CARDIOVASCULAR ICU hydrocodone-acetaminophen Estimated Onset Date: Unspecified ; Reactions: vomiting ; Created By: RENEA DWYER NP; Reaction Status: Active ; Category: Drug ; Substance: hydrocodone-acetaminophen ; Type: Allergy ; Severity: Severe ; Updated By: RENEA DWYER NP; Source: Patient ; Reviewed Date: 05/08/2012 13:14 REGISTERED NURSE CARDIOVASCULAR ICU Source: [facility] POWERCHART Document Id: [id number] STERED NURSE CARDIOVASCULAR ICU documented in this encounter Plan of Treatment Not on filedocumented as of this encounter Procedures Procedure Name Priority Date/Time Associated Diagnosis Comme nts RAPID STREP A Routine 06/27/2012 10:55 AM Results for this SCREEN REGISTERED NURSE CARDIOVASCULAR ICU procedure are i n the results section. RAPID STREP A Routine 06/27/2012 10:50 AM Results for this SCREEN REGISTERED NURSE CARDIOVASCULAR ICU procedure are i n the results section. documented in this encounter Results Rapid Strep A Screen (06/27/2012 10:55 AM REGISTERED NURSE CARDIOVASCULAR ICU) [facility] Method Time Signature HXRapid Strep POWERCHART Confirmation HXPre Negative for POWERCHART Group A Strep by culture. HXFinal Negative for POWERCHART Group A Strep by culture. Specimen Anatomical Collection Method Collection Time Receive d Time (Source) Location / / Volume Laterality Throat 06/27/2012 10:55 06/27/2012 AM REGISTERED NURSE CARDIOVASCULAR ICU 10:55 AM REGISTERED NURSE CARDIOVASCULAR ICU Renea Dwyer N.P. LAB MICROBIOLOGY - GENERAL O THU Performing Organization Address City/State/[facility] Code Phon e Number POWERCHART Rapid Strep A Screen (06/27/2012 10:50 AM REGISTERED NURSE CARDIOVASCULAR ICU) [facility] Method Time Signature HXStrep A POWERCHART Screen Rapid HXFinal Negative for POWERCHART Strep Group A by rapid screen. HXFinal Culture POWERCHART confirmation to follow. Specimen (Source) Anatomical Collection Method Collection Time Re ceived Time Location / / Volume Laterality Throat 06/27/2012 10:50 AM REGISTERED NURSE CARDIOVASCULAR ICU Renea Dwyer N.P. LAB MICROBIOLOGY - GENERAL O THU Performing Organization Address City/State/ZIP Code Phon e Number POWERCHART documented in this encounter Visit Diagnoses Not on filedocumented in this encounter
--- OUTSIDE RECORDS SUMMARY | 2022-02-10 13:25 | XMS_ITS | Encounter Summary ---
:1970 Author Organization [facility] Address [address] [place] [address] Care Team Providers Name Role Phone Unavailable Primary Care Provider Unavailable Encounter Details Date Type Department Care Team Description 04/02/2012 Hospital Encounter HX NO MAPPING Manuela Brewer PRey Dumont. Social History Tobacco Use Types Packs/Day Years Used Date Smoking Tobacco: Never Assessed Sex Assigned at Date Recorded Not on file documented as of this encounter Last Filed Vital Signs Vital Sign Reading Time Taken Comments Blood Pressure 132/82 04/02/2012 10:18 AM LINING SCRUBBER Pulse - - Temperature - - Respiratory Rate 20 04/02/2012 10:18 AM LINING SCRUBBER Oxygen Saturation - - Inhaled Oxygen Concentration - - Weight - - Height - - Body Mass Index - - documented in this encounter Medications at Time of Discharge Medication Sig Dispensed Refills Start Date End Date IBUPROFEN ORAL Take by mouth as needed. 0 011 documented as of this encounter Consult Notes Manuela Brewer - 04/02/2012 10:13 AM CST [id number] CHIEF COMPLAINT/REASON FOR VISIT Ms. Grullon is [...] BREWER PA-C On: 04/09/2012 02:13 PM Source: [facility] MHSDOLBEYNONRADSYS Document Id: [id number] NG SCRUBBER documented in this encounter Miscellaneous Notes Miscellaneous - Manuela Brewer - 04/02/2012 5:50 PM CST Ambulatory Patient Summary [address] [address] Visit Information Name: CANDY GRULLON [facility] Number: [id number] Current Date: 04/02/2012 17:50:17 Physicians Attending Provider: MANUELA BREWER PA-C Primary Care Provider: WILLEM SAEED RN, HORSE IDENTIFIER Your Medications Here is a list of [...] CASC Spec Clin follow up L knee Manuela Brewer PA-C Your Goals/Additional instructions: Source: [facility] [email or web address] / [employer] Document Id: [id number] NG SCRUBBER Miscellaneous - Manuela Brewer - 04/02/2012 5:50 PM CST Ambulatory Depart Summary [facility] [address] [address] Visit Information Name: CANDY GRULLON [facility] Number: [id number] Visit Date: 04/02/2012 17:50:16 Attending Provider: MANUELA BREWER PA-C Primary Care Provider: WILLEM SAEED RN, HORSE IDENTIFIER CANDY GRULLON has been given the following [...] your provider for clarification. Additional Information: Source: [facility] [email or web address] / [employer] Document Id: [id number] NG SCRUBBER Abbeycellkatie - Manuela Brewer - 04/02/2012 10:28 AM CST Return to Work Status Return to Work Status Entered On: 04/02/2012 10:29 LINING SCRUBBER Performed On: 04/02/2012 10:28 LINING SCRUBBER by MANUELA BREWER PA-C Return to Work Status Work Status Comment : Off work through 10-Apr-2012. May return to work as of 11-Apr-2012. MANUELA BREWER PA-C - 04/02/2012 10:28 LINING SCRUBBER Source: [facility] [employer] Document Id: [id number] NG SCRUBBER Miscellaneous - Zaida Miranda RClinton - 04/02/2012 10:18 AM LINING SCRUBBER Adult Plant Hr Manager Intake/History Adult Plant Hr Manager Intake/History Entered On: 04/02/2012 10:21 LINING SCRUBBER Performed On: 04/02/2012 10:18 LINING SCRUBBER by ZAIDA MIRANDA technical coordinator Chief Complaint : Left knee arthroscopy 2 weeks ago. Knee is sore. It feels much better than it did prior to surgery but still sore. Temperature Core : 36.6C(Converted to: 97.9DegF) Respiratory Rate : 20/min Systolic Blood Pressure : 132mmHg Diastolic Blood Pressure : 82mmHg NIBP Mean : 99mmHg ZAIDA MIRANDA RN - 04/02/2012 10:18 LINING SCRUBBER General Info Information Given By : Patient Preferred Communication Mode : Verbal Languages : Surinamese ZAIDA MIRANDA RN - 04/02/2012 10:18 LINING SCRUBBER Subjective Pain Symptoms : Yes ZAIDA MIRANDA RN - 04/02/2012 10:18 LINING SCRUBBER Pain Pain Assessment Grid Pain 1 Laterality : Left Time Pattern : Chronic Onset : Gradual ZAIDA MIRANDA RN - 04/02/2012 10:18 LINING SCRUBBER Dependent Habits Tobacco Use/Currently Using : Yes Tobacco Use/Advised to Quit : Yes Exposure to Tobacco Smoke : Patient smokes Smoking Status : Current every day smoker ZAIDA MIRANDA RN - 04/02/2012 10:18 LINING SCRUBBER Tobacco Use Grid Type : Cigarettes Cigarette Use Packs/Day : 0.5 ZAIDA MIRANDA RN - 04/02/2012 10:18 LINING SCRUBBER Caffeine Use Grid Caffeine Use : Current Type : Soft drinks Frequency : Daily ZAIDA MIRANDA RN - 04/02/2012 10:18 LINING SCRUBBER Recreational Drug Use Grid Drug Use : None ZAIDA MIRANDA RN - 04/02/2012 10:18 LINING SCRUBBER Allergy Allergies (Active) Demerol HCl Estimated Onset Date: Unspecified ; Created By: WADE DAIGLE LPN; Reaction Status: Active ; Category: Drug ; Substance: Demerol HCl ; Type: Allergy ; Updated By: WADE DAIGLE LPN;Reviewed Date: 04/02/2012 10:16 LINING SCRUBBER hydrocodone-acetaminophen Estimated Onset Date: Unspecified ; Created By: MICHELLE JOHNSON RN; Reaction Status: Active ; Category: Drug ; Substance: hydrocodone-acetaminophen ; Type: Allergy ; Severity: Severe ; Updated By: MICHELLE JOHNSON RN; Source: Patient ; Reviewed Date: 04/02/2012 10:16 LINING SCRUBBER Source: [facility] POWERCHART Document Id: [id number] NG SCRUBBER documented in this encounter Plan of Treatment Not on filedocumented as of this encounter Visit Diagnoses Not on filedocumented in this encounter
--- OUTSIDE RECORDS SUMMARY | 2022-02-10 13:25 | XMS_ITS | Encounter Summary ---
:1970 Author Organization [facility] Address [address] [place] [address] Care Team Providers Name Role Phone Unavailable Primary Care Provider Unavailable Encounter Details Date Type Department Care Team Description 02/28/2012 Hospital Encounter HX [facility] ORTH[facility] Lars Gaines, P.A.-C. Social History Tobacco [...] Lars Gaines - 02/28/2012 8:00 AM CST [id number] CLINIC ENCOUNTER Ms. Grullon is a pleasant [...] half that time was spent in direct pvei-mn-ubil counseling and educating the patient about her condition as well as treatment options that are available to her. HOLLY Fraire/eric cc: Source: [facility] RWHXTRANSXRTFSYS Document Id: [id number] documented in this encounter Plan of Treatment Not on filedocumented as of this encounter Visit Diagnoses Not on filedocumented in this encounter
--- OUTSIDE RECORDS SUMMARY | 2022-02-10 13:25 | XMS_ITS | Encounter Summary ---
:1970 Author Organization [facility] Address [address] [place] [address] Care Team Providers Name Role Phone Unavailable [...]
--- OUTSIDE RECORDS SUMMARY | 2022-02-10 13:26 | XMS_ITS | Encounter Summary ---
:1970 Author Organization [facility] Address [address] [place] [address] Care Team Providers Name Role Phone Unavailable Primary Care Provider Unavailable Encounter Details Date Type Department Care Team Description 07/05/2009 Hospital Encounter HX NO MAPPING Brie Smith M.D. [address] [place] [phone] (Wo rk) Social History Tobacco Use Types Packs/Day Years Used Date Smoking Tobacco: Never Assessed Sex Assigned at Date Recorded Not on file documented as of this encounter Plan of Treatment Not on filedocumented as of this encounter Visit Diagnoses Not on filedocumented in this encounter
--- OUTSIDE RECORDS SUMMARY | 2022-02-10 13:26 | XMS_ITS | Encounter Summary ---
:1970 Author Organization [facility] Address [address] [place] [address] Care Team Providers Name Role Phone Unavailable Primary Care Provider Unavailable Encounter Details Date Type Department Care Team Description 02/03/2008 Hospital Encounter [facility]X [facility] Neville Sarabia, INPT/OBSRV M.D. [address] [phone] (Wo rk) Social History Tobacco Use Types Packs/Day Years Used Date Smoking Tobacco: Never Assessed Sex Assigned at Date Recorded Not on file documented as of this encounter Plan of Treatment Not on filedocumented as of this encounter Visit Diagnoses Not on filedocumented in this encounter
--- OUTSIDE RECORDS SUMMARY | 2022-02-10 13:26 | XMS_ITS | Encounter Summary ---
:1970 Author Organization [facility] Address [address] [place] [address] Care Team Providers Name Role Phone Unavailable Primary Care Provider Unavailable Encounter Details Date Type Department Care Team Description 07/27/2011 Hospital Encounter HX [facility] Provider, Histor ical Social History Tobacco [...]
--- OUTSIDE RECORDS SUMMARY | 2022-02-10 13:26 | XMS_ITS | Encounter Summary ---
:1970 Author Organization [facility] Address [address] [place] [address] Care Team Providers Name Role Phone Unavailable Primary Care Provider Unavailable Encounter Details Date Type Department Care Team Description 02/16/2008 Hospital Encounter HX [facility] INPT/OBSRV Dalton Starr M.D. [address] [place], [place] [address] (Wo rk) Social History Tobacco Use Types Packs/Day Years Used Date Smoking Tobacco: Never Assessed Sex Assigned at Date Recorded Not on file documented as of this encounter Plan of Treatment Not on filedocumented as of this encounter Visit Diagnoses Not on filedocumented in this encounter
--- OUTSIDE RECORDS SUMMARY | 2022-02-10 13:26 | XMS_ITS | Encounter Summary ---
:1970 Author Organization [facility] Address [address] [place] [address] Care Team Providers Name Role Phone Unavailable [...]
--- OUTSIDE RECORDS SUMMARY | 2022-02-10 13:26 | XMS_ITS | Encounter Summary ---
:1970 Author Organization [facility] Address [address] [place] [address] Care Team Providers Name Role Phone Unavailable Primary Care Provider Unavailable Encounter Details Date Type Department Care Team Description 02/22/2010 Hospital Encounter [facility]X [facility] INPT/OBSRV Juan Manuel Gaines, P.A.-C. Social History Tobacco Use Types Packs/Day Years Used Date Smoking Tobacco: Never Assessed Sex Assigned at Date Recorded Not on file documented as of this encounter Plan of Treatment Not on filedocumented as of this encounter Visit Diagnoses Not on filedocumented in this encounter
--- OUTSIDE RECORDS SUMMARY | 2022-02-10 13:26 | XMS_ITS | Encounter Summary ---
:1970 Author Organization [facility] Address [address] [place] [address] Care Team Providers Name Role Phone Unavailable [...]
--- OUTSIDE RECORDS SUMMARY | 2022-02-10 13:26 | XMS_ITS | Encounter Summary ---
:1970 Author Organization [facility] Address [address] [place] [address] Care Team Providers Name Role Phone Unavailable [...]
--- OUTSIDE RECORDS SUMMARY | 2022-02-10 13:26 | XMS_ITS | Encounter Summary ---
:1970 Author Organization [facility] Address [address] [place] [address] Care Team Providers Name Role Phone Unavailable Primary Care Provider Unavailable Encounter Details Date Type Department Care Team Description 10/06/2010 Hospital Encounter HX [facility] Jabari Benton M.D. [address] [phone] (Wo rk) Social History Tobacco [...] Benton M.D. - 10/06/2010 12:00 AM CDT [id number] IMPRESSION/REPORT/PLAN Bacterial sinusitis and bronchitis. Prescribe Ceftin [...] BENTON MD On: 10/06/2010 04:24 PM Source: [facility] MHSDOLBEYNONRADSYS Document Id: [id number] documented in this encounter Miscellaneous Notes Miscellaneous [...] BENTON MD - 10/06/2010 10:15 CDT Source: [facility] [employer]odenom[employer] Document Id: [id number] CDT!5 Miscellaneous - Rosemarie Mercado L.PCarineNCarine - 10/06/2010 9:50 AM CDT Adult Retoucher Photoengraving Intake/History Adult Retoucher Photoengraving Intake/History Entered On: 10/06/2010 9:53 CDT Performed [...] DAIGLE LPN;Reviewed Date: 10/06/2010 9:47 CDT Source: [employer] Document Id: [id number] CDT!22 documented in this encounter Plan of Treatment Not on filedocumented as of this encounter Visit Diagnoses Not on filedocumented in this encounter
--- OUTSIDE RECORDS SUMMARY | 2022-02-10 13:26 | XMS_ITS | Encounter Summary ---
:1970 Author Organization [facility] Address [address] [place] [address] Care Team Providers Name Role Phone Unavailable Primary Care Provider Unavailable Encounter Details Date Type Department Care Team Description 07/14/2011 Hospital Encounter HX [facility] Margarita Amos M.D. [address] [place], [place] [phone] (Wo rk) Social History [...] Provider Ser - 07/14/2011 12:00 AM CDT [id number] July 14, 2011 Jimi Corley O.D. [facility] [address] [facility] [address] RE: Candy Grullon [address] [place] [phone] EMR#: [id number] : 1970 Dear Jimi: Thanks for having me see Candy Grullon regarding a cataract. As you recall, she is a [id number] who has noticed a definite decline in [...] future. Surgery will be set up in [place] next month. She does desire a monofocal lens with emmetropia for the left eye. The patient and her family would appreciate if you could provide postoperative management. Thanks again for the consultation. Sincerely, Heber Archer M.D. Department of Ophthalmology [facility] Source: [facility] RWHXTRANSXRTFSYS Document Id: [id number] documented in this encounter Plan of Treatment Not on filedocumented as of this encounter Visit Diagnoses Not on filedocumented in this encounter
--- OUTSIDE RECORDS SUMMARY | 2022-02-10 13:26 | XMS_ITS | Encounter Summary ---
:1970 Author Organization [facility] Address [address] [place] [address] Care Team Providers Name Role Phone Unavailable Primary Care Provider Unavailable Encounter Details Date Type Department Care Team Description 03/10/2008 Hospital Encounter HX [facility] Neville Sarabia, INPT/OBSRV M.D. [address] [phone] (Wo rk) Social History Tobacco Use Types Packs/Day Years Used Date Smoking Tobacco: Never Assessed Sex Assigned at Date Recorded Not on file documented as of this encounter Plan of Treatment Not on filedocumented as of this encounter Visit Diagnoses Not on filedocumented in this encounter
--- OUTSIDE RECORDS SUMMARY | 2022-02-10 13:26 | XMS_ITS | Encounter Summary ---
:1970 Author Organization [facility] Address [address] [place] [address] Care Team Providers Name Role Phone Unavailable [...] Freitas, CCS-P - 08/15/2011 12:00 AM CDT [id number] [facility] [address] [facility] [address] [place] [address] [place] [address] Attn: Billing Office: Our [facility] patient, Candy Grullon, had surgery with Dr. Sloan Archer MD. In an effort to coordinate the billing for the post-operative care, our office is providing the following information: All post-op care will be provided by your physician. WE BILLED: CPT CODE(S): 24068-32-OU DATE OF SERVICE: 08/09/11 DIAGNOSIS: 366.14 POST OP CARE TURNED OVER: 08/10/11 If there are any questions or concerns, please call Ronda at [phone] in Health Information Management. Thank You Source: [facility]XTRANSXRTFSYS Document Id: [id number] documented in this encounter Plan of Treatment Not on filedocumented as of this encounter Visit Diagnoses Not on filedocumented in this encounter
--- OUTSIDE RECORDS SUMMARY | 2022-02-10 13:26 | XMS_ITS | Encounter Summary ---
:1970 Author Organization [facility] Address [address] [place] [address] Care Team Providers Name Role Phone Unavailable [...]
--- OUTSIDE RECORDS SUMMARY | 2022-02-10 13:26 | XMS_ITS | Encounter Summary ---
:1970 Author Organization [facility] Address [address] [place] [address] Care Team Providers Name Role Phone Unavailable Primary Care Provider Unavailable Encounter Details Date Type Department Care Team Description 08/09/2011 Hospital Encounter HX [facility] Lance Alonzo M.D. [address] [place] [address] (Wo rk) Social History Tobacco [...] : NA Jewelry/Piercing Removed : NA Makeup/Nail Gabonese Removed : NA Oral Hygiene : NA Preop Scrub AM of Surgery : NA Preop Scrub Night Prior to Surgery : NA Prosthesis Removed : NA Surgical Prep Verified : Yes Tampon Removed : NA Wearing Patient Gown : Yes ROSALINA JEFFRISE RN - 08/09/2011 7:28 CDT Patient Rights [...] Number of Historical Features : 0 ILSAROSALINA IGLESIAS RN - 08/09/2011 7:28 CDT Valuables/Belongings Valuables/Belongings Grid Valuables at Bedside Clothes, Patient Valuables : Ailyn LUJANROSALINA COREA RN - 08/09/2011 7:28 CDT Room Orientation/Facility Policy Reviewed : Yes Home Medication Disposition : None brought in with patient BÁRBARAROSALINA JARVIS RN - 08/09/2011 7:28 CDT Education Preprocedure Education Grid Procedure Type : left cataract extraction Education Topics : Anesthesia/Sedation, Plan of care Individuals Taught : Patient Barriers to Learning : None evident Teaching Method : Explanation Teaching Evaluation : Verbalizes understanding ROSALINA JEFFRIES RN - 08/09/2011 7:28 CDT Preop Holding Mode of Arrival : Ambulatory Preoperative Orders Complete : Yes ROSALINA JEFFRIES RN - 08/09/2011 7:28 CDT Advance Directive [...] Estimated Weight Conversion to Pounds : 200.20lb ILSAROSALINA WEISS RN - 08/09/2011 7:28 CDT Allergy Allergies [...] Correct Procedure Site/Side Verified By : Patient/responsible alliance party, Nurse, MD Site Marking : Yes Pre-Procedure Pause Verbal Confirm. of : Procedure, Site, Side, Patient Position, Patient ID ROSALINA JEFFRIES RN - 08/09/2011 7:28 CDT Source: [employer] Document Id: [id number] CDT!97 documented in this encounter Nursing Notes [...] Information Given By : Patient Languages : Vincentian Status : Patient denies ROSALINA JEFFRIES RN [...] Adult : None Home Diet : Regular, [place], Diabetic Feeding Ability : Complete independence Eating [...] Integrity : Intact Mucous Membrane Color : [place] Mucous Membrane Description : Moist Skin Color : Normal for ethnicity Skin Description : Dry Skin Temperature : Warm ROSALINA JEFFRIES RN - 08/09/2011 7:20 CDT Source: [employer] Document Id: [id number] CDT!135 documented in this encounter OR Notes Op Note - Katalina Alonzo M.D. - 08/09/2011 12:00 AM CDT [id number] Preoperative Diagnosis: Visually disabling posterior capsular cataract [...] ALONZO MD On: 09/06/2011 10:13 AM Source: [facility] MHSDOLBEYNONRADSYS Document Id: [id number] documented in this encounter Miscellaneous Notes Miscellaneous - Ilsa-Rosalina Coera RCarineNCarine - 08/09/2011 8:50 AM CDT Adult [...] Rhythm : Regular Nail Bed Color : [place] Edema : None Capillary Refill : Less [...] Integrity : Intact Mucous Membrane Color : [place] Mucous Membrane Description : Moist Skin Color : Normal for ethnicity Skin Description : Dry Skin Temperature : Warm ROSALINA JEFFRIES 08/09/2011 9:14 CDT Peripheral IV Peripheral IV Assess/Intervention Grid Peripheral IV #1 IV Activity : Discontinue Number of Attempts : 1 Date of Insertion : 08/09/2011 CDT IV Site : Hand Laterality : Left Catheter Size : 20 Catheter Type : Protective Infiltration Score : 0 Phlebitis Score : 0 Comments (Comment: IV discontinued with plastic cath intact upon removal [ROSALINA JEFFRIES 08/09/2011 9:14 CDT] ) ROSALINA JEFFRIES 08/09/2011 9:14 CDT Neurologic Swallowing Difficulty/Aspiration Risk : None Extremity Movement : Equal Facial Symmetry : Symmetric Characteristics of Speech : Clear ROSALINA JEFFRIES 08/09/2011 9:14 CDT Upper Extremity Nail Bed Color Hands Grid Left Hand : [place] Right Hand : [place] ROSALINA JEFFRIES 08/09/2011 9:14 CDT Capillary Refill Hand Grid Left Hand : < 2 seconds Right Hand : < 2 seconds ROSALINA JEFFRIES 08/09/2011 9:14 CDT Upper Extremity Color Grid Left : [place] Right : [place] ROSALINA JEFFRIES 08/09/2011 9:14 CDT Upper Extremity Temperature Grid Left : Warm Right : Warm ROSALINA JEFFRIES 08/09/2011 9:14 CDT NV Upper Extremity Pulses Grid Radial Pulse, Left : 2+ Normal Radial Pulse, Right : 2+ Normal ROSALINA JEFFRIES 08/09/2011 9:14 CDT PARSAP Activity Status : [...] Murray RN - 08/09/2011 9:14 CDT [facility] Document Id: [id number] CDT!128 Miscellaneous - Rosalina Jeffries R.N. - 08/09/2011 8:30 AM CDT Adult Postprocedure [...] Rhythm : Regular Nail Bed Color : [place] Edema : None Capillary Refill : Less [...] 9:03 CDT GI/ Nausea Symptoms : No ROSALINA JEFFRIES 08/09/2011 9:03 CDT Urinary Catheter Urinary Catheter Activity Type : Other: none ROSALINA JEFFRIES 08/09/2011 9:03 CDT Integumentary Integumentary Patient Stated Symptoms : None Skin Turgor : Elastic Skin Integrity : Intact Mucous Membrane Color : [place] Mucous Membrane Description : Moist Skin Color [...] 0 Phlebitis Score : 0 ROSALINA JEFFRIES 08/09/2011 9:03 CDT I&O Other Intake : 20mL (Comment: IV NS flush in OR [ILSA-ROSALINA COREA 08/09/2011 9:03 CDT] ) ILSA-ANDREAOHKRISH [place] Susan 08/09/2011 9:03 CDT Neurologic Swallowing Difficulty/Aspiration Risk : None Extremity Movement : Equal Facial Symmetry : Symmetric Characteristics of Speech : Clear ROSALINA JEFFRIES 08/09/2011 9:03 CDT Upper Extremity Nail Bed Color Hands Grid Left Hand : [place] Right Hand : [place] ROSALINA JEFFRIES 08/09/2011 9:03 CDT Capillary Refill Hand Grid Left Hand : < 2 seconds Right Hand : < 2 seconds ILSA-KRISH COREANE Susan 08/09/2011 9:03 CDT Upper Extremity Color Grid Left : [place] Right : [place] ROSALINA JEFFRIES 08/09/2011 9:03 CDT Upper Extremity Temperature Grid Left : Warm Right : Warm ROSALINA JEFFRIES 08/09/2011 9:03 CDT NV Upper Extremity Pulses Grid Radial Pulse, Left : 2+ Normal Radial Pulse, Right : 2+ Normal KRISH JEFFRIESNE Susan 08/09/2011 9:03 CDT Modified Temitope Activity : Moves 4 extremities voluntarily or on command Respiratory : Able to deep breathe and cough freely Circulation : BP +/- 20% of preprocedural level or not unusually high or low Consciousness : Fully awake O2 Saturation : O2 SAT at preprocedural level Temitope l Score : 10 ROSALINA JEFFRIES Susan 08/09/2011 9:03 CDT Johnson Johnson Agitation [...] JEFFRIES RN - 08/09/2011 9:03 CDT Source: [employer] Document Id: [id number] CDT!118 documented in this encounter Plan of Treatment Not on filedocumented as of this encounter Visit Diagnoses Not on filedocumented in this encounter
--- OUTSIDE RECORDS SUMMARY | 2022-02-10 13:26 | XMS_ITS | Encounter Summary ---
:1970 Author Organization [facility] Address [address] [place] [address] Care Team Providers Name Role Phone Unavailable Primary Care Provider Unavailable Encounter Details Date Type Department Care Team Description 02/16/2008 Hospital Encounter HX [facility] INPT/OBSRV Dalton Starr M.D. [address] [place], [place] [address] (Wo rk) Social History Tobacco Use Types Packs/Day Years Used Date Smoking Tobacco: Never Assessed Sex Assigned at Date Recorded Not on file documented as of this encounter Plan of Treatment Not on filedocumented as of this encounter Visit Diagnoses Not on filedocumented in this encounter
--- OUTSIDE RECORDS SUMMARY | 2022-02-10 13:26 | XMS_ITS | Encounter Summary ---
:1970 Author Organization [facility] Address [address] [place] [address] Care Team Providers Name Role Phone Unavailable Primary Care Provider Unavailable Encounter Details Date Type Department Care Team Description 02/22/2010 Hospital Encounter [facility]X [facility] Neville To, INPT/OBSRV M.D. [address] [phone] (Wo rk) Social History Tobacco Use Types Packs/Day Years Used Date Smoking Tobacco: Never Assessed Sex Assigned at Date Recorded Not on file documented as of this encounter Plan of Treatment Not on filedocumented as of this encounter Visit Diagnoses Not on filedocumented in this encounter
--- OUTSIDE RECORDS SUMMARY | 2022-02-10 13:26 | XMS_ITS | Encounter Summary ---
:1970 Author Organization [facility] Address [address] [place] [address] Care Team Providers Name Role Phone Unavailable Primary Care Provider Unavailable Encounter Details Date Type Department Care Team Description 02/05/2008 Hospital Encounter HX [facility] Neville Sarabia, INPT/OBSRV M.D. [address] [phone] (Wo rk) Social History Tobacco Use Types Packs/Day Years Used Date Smoking Tobacco: Never Assessed Sex Assigned at Date Recorded Not on file documented as of this encounter Plan of Treatment Not on filedocumented as of this encounter Visit Diagnoses Not on filedocumented in this encounter
--- OUTSIDE RECORDS SUMMARY | 2022-02-10 13:26 | XMS_ITS | Encounter Summary ---
:1970 Author Organization [facility] Address [address] [place] [address] Care Team Providers Name Role Phone Unavailable Primary Care Provider Unavailable Encounter Details Date Type Department Care Team Description 07/26/2011 Hospital Encounter [facility] Willem Saeed, GILBERT, C.N.P., D. N.P. [address] [place] [address] (Wo rk) Social History Tobacco [...] APRN, C.N.P. - 07/26/2011 12:00 AM CDT [id number] CHIEF COMPLAINT/REASON FOR VISIT Preanesthetic physical. HISTORY OF PRESENT ILLNESS Preanesthetic physical. Candy is a pleasant 41-year-old female who is being seen today per the request of Dr. Moscoso for preanesthetic clearance for left cataract eye surgery to be performed on 08/09/2011 at the [facility] in [place]. She has been noting some blurry vision [...] to be performed by Dr. Moscoso in [place] on 08/09/11. No additional precautions or preoperative recommendations other than patient was advised for smoking cessation. Patient Education Ready to learn No apparent learning barriers were identified Learning preferences include listening Explained diagnosis and treatment plan Patient/Child/Caregiver expressed understanding of the content Willem Saeed N.P. / Electronically Signed By: WILLEM SAEED RN, KEEGAN On: 07/29/2011 01:52 PM Source: [facility] MHSDOLBEYNONRADSYS Document Id: [id number] documented in this encounter Miscellaneous Notes Miscellaneous - Willem Saeed APRN, C.N.P. - 07/26/2011 12:50 PM CDT Ambulatory Patient Summary [address] [address] Visit Information Name: CANDY GRULLON Current Date: 07/26/2011 12:50:36 Physicians Attending Provider: WILLEM SAEED RN, WINDOWS SERVER SUPPORT TECHNICIAN Primary Care Provider: CORTEZ WAITE MD Your [...] No Appointments found Your Goals/Additional instructions: Source: [facility] [employer] Document Id: [id number] Miscellaneous - Willem Saeed APRN, C.N.P. - 07/26/2011 12:50 PM CDT Ambulatory Depart Summary [address] [address] Visit Information Name: CANDY GRULLON Visit Date: 07/26/2011 12:50:35 Attending Provider: WILELM SAEED RN, WINDOWS SERVER SUPPORT TECHNICIAN Primary Care Provider: CORTEZ WAITE MD CANDY [...] your provider for clarification. Additional Information: Source: [facility] [employer] Document Id: [id number] Miscellaneous - Jasmin Douglas L.P.N. - 07/26/2011 [...] DOUGLAS LPN - 07/26/2011 10:37 CDT [facility] Document Id: [id number] CDT!9 Miscellaneous - Jasmin Douglas L.P.N. - 07/26/2011 10:33 AM CDT Health Assessment [...] day smoker JASMIN DOUGLAS LPN - 07/26/2011 10:33 CDT Tobacco Use [...] DOUGLAS LPN - 07/26/2011 10:33 CDT Source: [facility] [employer] Document Id: [id number] CDT!32 Miscellaneous - Jasmin Douglas L.P.N. - 07/26/2011 10:25 AM CDT Adult Intelligent Systems Engineer Intake/History Adult Intelligent Systems Engineer Intake/History Entered On: 07/26/2011 10:33 CDT Performed [...] By: WADE DAIGLE LPN;Reviewed Date: 05/31/2011 8:28 COMPANY LAUNDRY WORKER Source: [facility] Document Id: [id number] CDT!41 documented in this encounter Plan of Treatment Not on filedocumented as of this encounter Visit Diagnoses Not on filedocumented in this encounter
--- OUTSIDE RECORDS SUMMARY | 2022-02-10 13:26 | XMS_ITS | Encounter Summary ---
:1970 Author Organization [facility] Address [address] [place] [address] Care Team Providers Name Role Phone Unavailable Primary Care Provider Unavailable Encounter Details Date Type Department Care Team Description 07/12/2011 Hospital Encounter HX NO MAPPING Dudley Archer M.D. [address] [place], [place] [address] (Wo rk) Social History [...] Archer M.D. - 07/12/2011 12:00 PM CDT [id number] CLINIC ENCOUNTER Dr. Corley's office in [place], 07/12/2011 SUBJECTIVE: This is a 41-year-old female [...] eye. 3. The patient will present to [place] for biometry, keratometry and preoperative teaching performed. The patient desires emmetropia with a monofocal lens. 4. She will see her primary MD in consultation regarding anesthetic risks. A letter to Dr. Corley. Saumya Linton/christiane cc: Source: [facility] RWHXTRANSXSYS Document Id: [id number] Electronically signed by Conversion, [facility] Sociology Faculty Member [id number] at 09/23/2016 12:23 PM CDT Miscellaneous - Heber Archer M.D. - 07/12/2011 12:00 PM CDT [id number] Candy Grullon is a 41 year old female who presents for cataract referral Dr. Corley. History of Present Illness: Patient states her vision has been gradually becoming more blurry, mostly left eye. Dickson Houser, COMT Distance Right Eye Left Eye Both Eyes CC 20 60 Pinhole Correction Glasses Current RX: Sphere Cylinder Ava Add Prism Right Eye -2.25 +1.25 115 [...] Psychiatric: negative Hematologic/Lymphatic/Immunologic: negative Endocrine: negative Source: [facility] RWMCHXTRANSXRTFSYS Document Id: [id number] Electronically signed by Conversion, [facility] Sociology Faculty Member [id number] at 09/23/2016 12:23 PM CDT documented in this encounter Plan of Treatment Not on filedocumented as of this encounter Visit Diagnoses Not on filedocumented in this encounter
--- OUTSIDE RECORDS SUMMARY | 2022-02-10 13:26 | XMS_ITS | Encounter Summary ---
:1970 Author Organization [facility] Address [address] [place] [address] Care Team Providers Name Role Phone Unavailable Primary Care Provider Unavailable Encounter Details Date Type Department Care Team Description 05/31/2011 Hospital Encounter HX [facility] FAMILY ME Denise Johnson P.A.-C. [address] [place] [address] (Wo rk) Social History Tobacco Use Types Packs/Day Years Used Date Smoking Tobacco: Never Assessed Sex Assigned at Date Recorded Not on file documented as of this encounter Last Filed Vital Signs Vital Sign Reading Time Taken Comments Blood Pressure 120/70 05/31/2011 8:25 AM PHYSICAL SECURITY MANAGER Pulse - - Temperature - - Respiratory Rate 20 05/31/2011 8:25 AM PHYSICAL SECURITY MANAGER Oxygen Saturation - - Inhaled Oxygen Concentration - - Weight - - Height - - Body Mass Index - - documented in this encounter Medications at Time of Discharge Medication Sig Dispensed Refills Start Date End Date IBUPROFEN ORAL Take by mouth as needed. 0 011 documented as of this encounter Progress Notes Chandni Johnson - 05/31/2011 12:00 AM CST [id number] CHIEF COMPLAINT/REASON FOR VISIT This is a [...] ago. She has been using some NyQuil [id number] and Ibuprofen. CURRENT MEDICATIONS Just Advil [id number]. ALLERGIES 1) DEMEROL. PAST MEDICAL HISTORY/SURGICAL HISTORY [...] CHANDNI JOHNSON On: 06/06/2011 09:49 AM Source: [facility] [id number] Document Id: [id number] ICAL SECURITY MANAGER documented in this encounter Miscellaneous Notes Miscellaneous - Chandni Johnson - 05/31/2011 9:21 AM CST Ambulatory Patient Summary [address] [address] Visit Information Name: CANDY VALDEZ Current Date: [...] you from getting the serious disease Tetanus ([place]). Your Upcoming Appointments Date Time Location Reason Provider No Appointments found Your Goals/Additional instructions: Source: [facility] POWERCHART Document Id: [id number] ICAL SECURITY MANAGER Martin - Chandni Johnson - 05/31/2011 9:21 AM CST Ambulatory Depart Summary [address] [address] Visit Information Name: CANDY VALDEZ Current Date: [...] (Advil) Oral as needed Additional Information: Source: [facility] POWERCHART Document Id: [id number] ICAL SECURITY MANAGER Martin - Chandni Johnson - 05/31/2011 8:49 AM CST School or Work Excuse School or Work Excuse Entered On: 05/31/2011 8:49 PHYSICAL SECURITY MANAGER Performed On: 05/31/2011 8:49 PHYSICAL SECURITY MANAGER by CHANDNI JOHNSON School or Work Excuse Date Patient Seen : 05/31/2011 PHYSICAL SECURITY MANAGER Comment : Candy was seen in the clinic today. CHANDNI JOHNSON - 05/31/2011 8:49 PHYSICAL SECURITY MANAGER Source: [facility] Document Id: [id number] PHYSICAL SECURITY MANAGER!4 ICAL SECURITY MANAGER Miscellaneous - Conversion, Historical Provider Ser - 05/31/2011 8:29 AM PHYSICAL SECURITY MANAGER Health Assessment Health Assessment Entered On: 05/31/2011 8:30 PHYSICAL SECURITY MANAGER Performed On: 05/31/2011 8:29 PHYSICAL SECURITY MANAGER by YURI STEWART LPN Health Assessment Complete Health Assessment Complete or Modified : Annual Health Assessment Annual Health Assessment Completed : Yes YURI STEWART LPN - 05/31/2011 8:29 PHYSICAL SECURITY MANAGER Nutrition Nutrition Risk Factors by History Adult : None YURI STEWART LPN - 05/31/2011 8:29 PHYSICAL SECURITY MANAGER Functional Current Daily Living Assistance : None YURI STEWART LPN - 05/31/2011 8:29 PHYSICAL SECURITY MANAGER Dependent Habits Tobacco Use/Currently Using : Yes Smoking Status : Current every day smoker YURI STEWART LPN - 05/31/2011 8:29 PHYSICAL SECURITY MANAGER Tobacco Use Grid Type : Cigarettes Cigarette Use Packs/Day : 0.5 YURI STEWART LPN - 05/31/2011 8:29 PHYSICAL SECURITY MANAGER Caffeine Use Grid Caffeine Use : Current Type : Soft drinks Frequency : Daily YURI STEWART LPN - 05/31/2011 8:29 PHYSICAL SECURITY MANAGER Recreational Drug Use Grid Drug Use : None YURI STEWART LPN - 05/31/2011 8:29 PHYSICAL SECURITY MANAGER Psychosocial Domestic Abuse Concerns : None YURI STEWART LPN - 05/31/2011 8:29 PHYSICAL SECURITY MANAGER Advance Directive Advanced Directives : Yes YURI STEWART LPN - 05/31/2011 8:29 PHYSICAL SECURITY MANAGER Educ Needs Learning Style Preference Adult Grid Patient : Printed materials Family : Printed materials YURI STEWART LPN - 05/31/2011 8:29 PHYSICAL SECURITY MANAGER Source: [facility] Document Id: [id number] PHYSICAL SECURITY MANAGER!31 Miscellaneous - Conversion, Historical Provider Ser - 05/31/2011 8:25 AM PHYSICAL SECURITY MANAGER Adult Poultry Farm Manager Intake/History Adult Poultry Farm Manager Intake/History Entered On: 05/31/2011 8:28 PHYSICAL SECURITY MANAGER Performed On: 05/31/2011 8:25 PHYSICAL SECURITY MANAGER by YURI STEWART LPN Intake Chief Complaint : cols sx xince Fri, cough that is productive, sinus congestion, runny nose, drainage refused weight Temperature Core : 36.6C(Converted to: 97.9DegF) Apical Heart Rate : 80/min Respiratory Rate : 20/min Systolic Blood Pressure : 120mmHg Diastolic Blood Pressure : 70mmHg NIBP Mean : 87mmHg SpO2 : 98% YURI STEWART LPN - 05/31/2011 8:25 PHYSICAL SECURITY MANAGER Subjective Pain Symptoms : No YURI STEWART LPN - 05/31/2011 8:25 PHYSICAL SECURITY MANAGER Dependent Habits Tobacco Use/Currently Using : Yes Smoking Status : Current every day smoker YURI STEWART LPN - 05/31/2011 8:25 PHYSICAL SECURITY MANAGER Tobacco Use Grid Type : Cigarettes Cigarette Use Packs/Day : 0.5 YURI STEWART LPN - 05/31/2011 8:25 PHYSICAL SECURITY MANAGER Caffeine Use Grid Caffeine Use : Current Type : Soft drinks Frequency : Daily YURI STEWART LPN - 05/31/2011 8:25 PHYSICAL SECURITY MANAGER Recreational Drug Use Grid Drug Use : None YURI STEWART LPN - 05/31/2011 8:25 PHYSICAL SECURITY MANAGER Allergy Allergies (Active) Demerol HCl Estimated Onset Date: Unspecified ; Created By: WADE DAIGLE LPN; Reaction Status: Active ; Category: Drug ; Substance: Demerol HCl ; Type: Allergy ; Updated By: WADE DAIGLE LPN;Reviewed Date: 05/16/2011 20:24 PHYSICAL SECURITY MANAGER Source: [facility] POWERCHART Document Id: [id number] PHYSICAL SECURITY MANAGER!27 documented in this encounter Plan of Treatment Not on filedocumented as of this encounter Visit Diagnoses Not on filedocumented in this encounter
--- OUTSIDE RECORDS SUMMARY | 2022-02-10 13:26 | XMS_ITS | Encounter Summary ---
:1970 Author Organization [facility] Address [address] [place] [address] Care Team Providers Name Role Phone Unavailable Primary Care Provider Unavailable Encounter Details Date Type Department Care Team Description 02/15/2010 Hospital Encounter HX [facility] INPT/OBSRV Bethanie Dwyer, N[address] [place] [phone] (Wo rk) Social History Tobacco Use Types Packs/Day Years Used Date Smoking Tobacco: Never Assessed Sex Assigned at Date Recorded Not on file documented as of this encounter Plan of Treatment Not on filedocumented as of this encounter Visit Diagnoses Not on filedocumented in this encounter
--- OUTSIDE RECORDS SUMMARY | 2022-02-10 13:26 | XMS_ITS | Encounter Summary ---
:[address] [facility] Address [address] [place] [address] Care Team Providers Name Role Phone Unavailable Primary Care Provider Unavailable Encounter Details Date Type Department Care Team Description 07/05/2009 Hospital Encounter HX NO MAPPING Brie Smith M.D. [address] [place] [phone] (Wo rk) Social History Tobacco Use Types Packs/Day Years Used Date Smoking Tobacco: Never Assessed Sex Assigned at Date Recorded Not on file documented as of this encounter Plan of Treatment Not on filedocumented as of this encounter Visit Diagnoses Not on filedocumented in this encounter
--- OUTSIDE RECORDS SUMMARY | 2022-02-10 13:26 | XMS_ITS | Encounter Summary ---
:1970 Author Organization [facility] Address [address] [place] [address] Care Team Providers Name Role Phone Unavailable Primary Care Provider Unavailable Encounter Details Date Type Department Care Team Description 05/16/2011 Hospital Encounter HX [facility] ED Misael Mann M.D. Social History Tobacco Use Types Packs/Day Years Used Date Smoking Tobacco: Never Assessed Sex Assigned at Date Recorded Not on file documented as of this encounter Last Filed Vital Signs Vital Sign Reading Time Taken Comments Blood Pressure 131/91 05/16/2011 9:39 PM DRYWALL FINISHER Pulse - - Temperature - - Respiratory Rate 18 05/16/2011 9:39 PM DRYWALL FINISHER Oxygen Saturation - - Inhaled Oxygen Concentration - - Weight - - Height - - Body Mass Index - - documented in this encounter Discharge Summaries Cristy Draper R.N. - 05/16/2011 9:52 PM CST ED Discharge Instructions [address] [address] Name: CANDY VALDEZ Date of : 1970 12:00 AM Visit Date: 05/16/2011 8:07 PM Address: [address] [place] [address] Primary Care Provider: CORTEZ WAITE MD IMPORTANT:[facility] in [place] would like to thank you for allowing us to assist you with your healthcare needs. The following includes patient education materials and information regarding your injury/illness. Chief Complaint: Chest Pain:Pressure/Tightness; Chest Pain Follow-Up Instructions: With: Address: When: CORTEZ WAITE [facility] [place] [address] Business (1) Within 1 - 2weeks Comments: With: Address: When: Return to Emergency Department Within As Needed Comments: If symptoms worsen Patient Education Materials: [id number] CHEST PAIN:UNCERTAIN CAUSE Based on your exam [...] pain or redness in one leg ?? [id number] [employer], [address] [place] [address], [place] [address]. All rights reserved. This information is not intended as a substitute for professional medical care. Always follow your healthcare professional's instructions. [id number] HOW TO QUIT SMOKING Smoking is one [...] the free national Quitline for more information. 029-YNQS-SEP (038-778-4146). Low-cost or free programs are offered by many hospitals,local chapters of the [place] [employer] (492-351-7300) and the [place] [employer] (135-496-6533). Support at home is important too. Non-smokers can help by offering praise and encouragement. If the smoker fails to quit, encourage them to try again! BQGX-KPI-FENHVSK MEDICINES: For those who can't quit on [...] visit the following links: ?? National Cancer [place] , Clearing the Air, Quit Smoking Today - an online booklet. http://www.smokefree.gov/pubs/clearing_the_air.pdf ?? Smokefree.gov http://smokefree.gov/ QuitNet http://www.quitnet.com/ ?? [employer], [address] [place] [address], [place] [address]. All rights reserved. This information is not [...] arrange a ride home with a responsible constitution party. IJOSÉ MIGUEL THERESA MARIE , or responsible constitution party have received this information and my questions have been answered. I have discussed any challenges I see with this plan with the nurse or physician. Patient Signature or Responsible Libertarian/Relationship Date/Time Provider Signature Date/Time Medication Reconciliation: Reconciliation [...] arrange a ride home with a responsible constitution party. JOSÉ MIGUEL Barrios THERESA MARIE , or responsible constitution party have received this information and my questions have been answered. I have discussed any challenges I see with this plan with the nurse or physician. Patient Signature or Responsible Libertarian/Relationship Date/Time Provider Signature Date/Time This document has images extracted. Please consider using [employer] for all your patient education needs. Source: [employer] Document Id: [id number] ALL FINISHER Cristy Draper R.N. - 05/16/2011 9:52 PM CST ED Depart Summary [facility] Emergency Department Clinical Discharge Summary PERSON INFORMATION Name CANDY VALDEZ Age 40 Years 1970 12:00 AM Sex Female Language Citizen Of [place] PCP CORTEZ WAITE MD Marital Status Single Visit Id Visit Reason Chest Pain:Pressure/Tightness; Chest Pain Specialty Enc Type Emergency Med Service Emergency Medicine Referred by Track Group [facility] ED Discharge 05/16/2011 9:52 PM Tracking Id [id number] Checkout 05/16/2011 9:52 PM Checkin 05/16/2011 8:07 PM Acuity 3 -Urgent Dispo Type * Discharged to Home or Self Care Arrival 05/16/2011 8:07 PM Reg Status Complete LOS 000 01:45 Address: [address] [place] [id number] Comment: PROVIDER INFORMATION Provider Role Provider Contact Time CRISTY MEYER LINE ANALYST Nurse 05/16/11 20:24 DIAGNOSIS Chest Pain, Atypical Comment: PATIENT EDUCATION INFORMATION Instructions: CHEST PAIN, Uncertain Cause; SMOKING CESSATION Follow up: With: Address: When: CORTEZ WAITE [address] [place] [address] [facility] (1) Within 1 - 2weeks Comments: With: Address: When: Return to Emergency Department Within As Needed Comments: If symptoms worsen [facility] Document Id: [id number] ALL FINISHER documented in this encounter Medications at Time of Discharge Medication Sig Dispensed Refills Start Date End Date IBUPROFEN ORAL Take by mouth as needed. 0 011 documented as of this encounter Nursing Notes Cristy Draper R.N. - 05/16/2011 9:33 PM CST ED Pain Assessment ED Pain Assessment Entered On: 05/16/2011 21:33 DRYWALL FINISHER Performed On: 05/16/2011 21:33 DRYWALL FINISHER by CRISTY MEYER RN Pain Assessment Pain Symptoms : Yes CRISTY MEYER RN - 05/16/2011 21:33 DRYWALL FINISHER Pain Pain Assessment Grid Pain 1 Location : Chest Laterality : Left Intensity : 0 CRISTY MEYER RN - 05/16/2011 21:33 DRYWALL FINISHER Source: [facility] [email or web address] Document Id: [id number] DRYWALL FINISHER!9 ALL FINISHER Cristy Draper R.N. - 05/16/2011 8:14 PM CST ED Primary Assessment ED Primary Assessment Entered On: 05/16/2011 20:22 DRYWALL FINISHER Performed On: 05/16/2011 20:14 DRYWALL FINISHER by CRISTY MEYER RN Reason For Visit Problems(Active) Reflux Name of Problem: Reflux ; Onset Date: 07/05/2005 ; Recorder: WADE DAIGLE LPN; Confirmation: Confirmed ; Classification: Nursing ; Code: [id number] ; Contributor System: [employer] ; Last Updated: 10/06/2010 8:35 CDT ; [...] Private vehicle Track : Medical Languages : Citizen Of [place] Vital Signs Assessed : Yes Treatments Prior to Arrival : Other: ADVIL 1830 CRISTY MEYER RN - 05/16/2011 20:14 DRYWALL FINISHER Vital Signs Temperature Core : 36.8C(Converted to: [...] 190.08lb CRISTY MEYER RN - 05/16/2011 20:14 DRYWALL FINISHER Pain Assessment Pain Symptoms : Yes CRISTY MEYER RN - 05/16/2011 20:14 DRYWALL FINISHER Pain Pain Assessment Grid Pain 1 Location : Chest Laterality : Left Intensity : 3 Time Pattern : Acute Onset : Sudden Quality : Aching, Other: irritating Pain Radiation : Yes (Comment: back [CRISTY MEYER RN - 05/16/2011 20:14 DRYWALL FINISHER] ) Aggravating Factors : None Alleviating Factors : Rest Associated Symptoms : Nausea, Sweating Interventions : MD notified, Rest CRISTY MEYER RN - 05/16/2011 20:14 DRYWALL FINISHER ED Physician Notification Time ED Physician Notification Time : 05/16/2011 20:19 DRYWALL FINISHER CRISTY MEYER RN - 05/16/2011 20:14 DRYWALL FINISHER CARLA CARLA Level 1 : No CARLA Level 2 : No CARLA Level 3 : Many Vital Signs CARLA : Danger zone (HR > 100, RR > 20, SaO2 < 92%) CRISTY MEYER RN - 05/16/2011 20:14 DRYWALL FINISHER DCP GENERIC CODE Tracking Acuity : 3 -Urgent Tracking Group : [facility] ED CRISTY MEYER RN - 05/16/2011 20:14 DRYWALL FINISHER Allergy Latex Reaction : No Latex Hives/Itch : No Latex Congestion/Eye Irr/Breathing : No Latex Symptom Progression : No Latex Previous Test : No CRISTY MEYER RN - 05/16/2011 20:14 DRYWALL FINISHER Allergies (Active) Demerol HCl Estimated Onset Date: Unspecified ; Created By: WADE DAIGLE LPN; Reaction Status: Active ; Category: Drug ; Substance: Demerol HCl ; Type: Allergy ; Updated By: WADE DAIGLE LPN;Reviewed Date: 05/16/2011 20:20 DRYWALL FINISHER ID Screen Drug Resistant Organism : No CRISTY MEYER RN - 05/16/2011 20:14 DRYWALL FINISHER Immunizations Immunizations Current : Yes Last Tetanus : > 5 years Pneumovac : None Influenza : None CRISTY MEYER RN - 05/16/2011 20:14 DRYWALL FINISHER Respiratory Airway : Patent Respirations : Unlabored Respiratory Pattern : Regular Oxygen Start Time : 05/16/2011 20:20 DRYWALL FINISHER Oxygen Therapy : Nasal Cannula Oxygen Flow Rate : 2L/min CRISTY MEYER RN - 05/16/2011 20:14 DRYWALL FINISHER Cardiovascular Heart Rhythm : Regular Skin Color : Normal for ethnicity Skin Description : Clammy Skin Temperature : Warm CRISTY MEYER RN - 05/16/2011 20:14 DRYWALL FINISHER Neurological Level of Consciousness : Alert Orientation : Oriented x 3 Characteristics of Speech : Appropriate for age Neuro Patient Stated Symptoms : None Gait : Steady Swallowing Difficulty/Aspiration Risk : None CRISTY MEYER RN - 05/16/2011 20:14 DRYWALL FINISHER ED Psychosocial Affect/Behavior : Calm, Cooperative, Appropriate Domestic Abuse Concerns : None Emotional Support Available : Yes CRISTY MEYER RN - 05/16/2011 20:14 DRYWALL FINISHER Gastrointestinal Nutrition ED : Adequate CRISTY MEYER RN - 05/16/2011 20:14 DRYWALL FINISHER /OB Assessment Patient Stated Symptoms : None CRISTY MEYER RN - 05/16/2011 20:14 DRYWALL FINISHER Integumentary Integumentary Patient Stated Symptoms : None Skin Turgor : Elastic Skin Integrity : Intact Mucous Membrane Color : [place] Mucous Membrane Description : Moist Skin Color : Normal for ethnicity Skin Description : Dry Skin Temperature : Warm CRISTY MEYER RN - 05/16/2011 20:14 DRYWALL FINISHER Musculoskeletal Fall Prevention Education Provided : CRISTY MERAZ RN - 05/16/2011 20:14 DRYWALL FINISHER Social Habits Tobacco Use/Currently Using : Yes Smoking Status : Current every day smoker CRISTY MEYER RN - 05/16/2011 20:14 DRYWALL FINISHER Tobacco Use Grid Type : Cigarettes Cigarette Use Packs/Day : 0.5 CRISTY MEYER RN - 05/16/2011 20:14 DRYWALL FINISHER Alcohol Use Grid Alcohol Use : Yes Frequency : Occasionally CRISTY MEYER RN - 05/16/2011 20:14 DRYWALL FINISHER Recreational Drug Use Grid Drug Use : None CRISTY MEYER RN - 05/16/2011 20:14 DRYWALL FINISHER Source: [employer] Document Id: [id number] DRYWALL FINISHER!114 ALL FINISHER documented in this encounter ED Notes Cristy Draper R.N. - 05/16/2011 9:38 PM CST ED Disposition Summary ED Disposition Summary Entered On: 05/16/2011 21:38 DRYWALL FINISHER Performed On: 05/16/2011 21:38 DRYWALL FINISHER by CRISTY MEYER RN ED Disposition Summary Accompanied By : Alone Mode of Discharge : Ambulatory Transportation : Private vehicle Printed Discharge Instructions Given to Patient : Yes Patient Status at Discharge from ED : Improved CRISTY MEYER RN - 05/16/2011 21:38 DRYWALL FINISHER Source: [employer] Document Id: [id number] DRYWALL FINISHER!7 ALL FINISHER Cristy Draper R.N. - 05/16/2011 9:36 PM CST ED Nurse Reassess ED Nurse Reassess Entered On: 05/16/2011 21:37 DRYWALL FINISHER Performed On: 05/16/2011 21:36 DRYWALL FINISHER by CRISTY MEYER RN Pain Assessment Pain Symptoms : Yes CRISTY MEYER RN - 05/16/2011 21:36 DRYWALL FINISHER Pain Pain Assessment Grid Pain 1 Location : Chest Intensity : 9 CRISTY MEYER RN - 05/16/2011 21:36 DRYWALL FINISHER Resp Reassess Respiratory Patient Stated Symptoms : None Distress : None Airway : Patent Respirations : Unlabored Cough : None CRISTY MEYER RN - 05/16/2011 21:36 DRYWALL FINISHER CV Reassess CV Patient Stated Symptoms : None Skin Description : Dry Skin Temperature : Warm Nail Bed Color : [place] Capillary Refill : Less than 2 seconds Heart Rhythm : Regular Cardiac Rhythm : Sinus rhythm CRISTY MEYER RN - 05/16/2011 21:36 DRYWALL FINISHER Neuro Reassess Neuro Patient Stated Symptoms : None Level of Consciousness : Alert Orientation : Oriented x 3 Characteristics of Speech : Appropriate for age Gait : Steady CRISTY MEYER RN - 05/16/2011 21:36 DRYWALL FINISHER Elmo Coma Eye Opening Response Reasnor : Spontaneously Best Verbal Response Elmo : Oriented Best Motor Response Reasnor : Obeys simple commands Elmo Coma Score : 15 CRISTY MEYER RN - 05/16/2011 21:36 DRYWALL FINISHER Behavioral Health Screen/Safety Reassmt Affect/Behavior : Calm, Cooperative, Appropriate CRISTY MEYER RN - 05/16/2011 21:36 DRYWALL FINISHER GI Reassess GI Patient Stated Symptoms : None CRISTY MEYER RN - 05/16/2011 21:36 DRYWALL FINISHER /OB Reassess Patient Stated Symptoms : None CRISTY MEYER RN - 05/16/2011 21:36 DRYWALL FINISHER Source: [facility] [email or web address] Document Id: [id number] DRYWALL FINISHER!39 ALL FINISHER Cristy Draper R.N. - 05/16/2011 9:29 PM CST ED Treatments and Procedures ED Treatments and Procedures Entered On: 05/16/2011 21:30 DRYWALL FINISHER Performed On: 05/16/2011 21:29 DRYWALL FINISHER by CRISTY MEYER RN Oxygen Therapy Oxygen Start Time : 05/16/2011 20:20 DRYWALL FINISHER Oxygen Therapy : Nasal Cannula Oxygen Stop Time : 05/16/2011 21:30 DRYWALL FINISHER Oxygen Flow Rate : 2L/min CRISTY MEYER RN - 05/16/2011 21:29 DRYWALL FINISHER Source: [facility] POWERCHART Document Id: [id number] DRYWALL FINISHER!6 ALL FINISHER Misael Mann M.D. - 05/16/2011 8:24 PM CST chest pain Patient: CANDY VALDEZ Age: 40 years Sex: Female : 1970 Author: MISAEL MANN MD Attachments: None Associated Diagnosis: Chest Pain, Atypical Basic Information Additional information:: Chief Complaint from Nursing Triage Note : Chief Complaint Description. 05/16/2011 20:14 DRYWALL FINISHER Chief Complaint Description 40 year old female [...] recorded. Surgical history: Surgical history. Breast lumpectomy ([id number]) in 2005 at 35 Years. Comments: 10/06/2010 09:50 - ASLESON, SUSAN Avila LPN right breast Hysterectomy and bilateral salpingo-oophorectomy sample ([id number]) in 1994 at 24 Years. Family history: Family history. No family history items have been selected or recorded. Social history: Tobacco use: Smokes 2 pack(s) per day, for the last 4 years, Occupation: Employed, Family/social situation: . Problem list: . All Problems History of - anxiety state / [id number] / Confirmed Reflux / [id number] / Confirmed Physical Examination Vital signs: Vital Signs, 05/16/2011 20:14 DRYWALL FINISHER Temperature Core 36.8 C Apical Heart Rate 95 /min Respiratory Rate 24 /min HI SpO2 96 % Systolic Blood Pressure 155 mmHg HI Diastolic Blood Pressure 91 mmHg >HHI Mean Arterial Pressure 112 mmHg BP Location Left upper Measurements, 05/16/2011 20:14 DRYWALL FINISHER Estimated Weight 86.4 kg Weight Source Other: per patient Oxygen saturation Oxygen Therapy & Oxygenation Information. 05/16/2011 20:14 DRYWALL FINISHER Oxygen Therapy Room air Oxygen Therapy Nasal [...] Glucose Level (Order Processing): Stat, 05/16/2011 20:26 DRYWALL FINISHER, Once, Blood CK Total (Order Processing): Stat, 05/16/2011 20:26 DRYWALL FINISHER, Once, Blood CPK-mb (Order Processing): Stat, 05/16/2011 20:26 DRYWALL FINISHER, Once, Blood CBC (includes Auto Differential) (Order Processing): Stat, 05/16/2011 20:26 DRYWALL FINISHER, Once, Blood Basic Metabolic Panel (Order Processing): Stat, 05/16/2011 20:26 DRYWALL FINISHER, Once, Blood Troponin T (Order Processing): Stat, 05/16/2011 20:25 DRYWALL FINISHER, Once, Blood Patient Care: ED Chest Pain (Order Processing) Cardiac Monitoring (Order Processing): 05/16/2011 20:25 DRYWALL FINISHER, Once Pulse Oximetry-ED (Order Processing): 05/16/2011 20:25 DRYWALL FINISHER EKG (Rad) (Order Processing): 05/16/2011 20:25 DRYWALL FINISHER, Once Pharmacy: aspirin (Order Processing): 324 mg, PO, Once Radiology: XR Chest 2 Views (Order Processing): 05/16/2011 20:25 DRYWALL FINISHER, Chest pain, Stat, Patient Bed, Once ED: Oxygen - ER (Order Processing): 05/16/2011 20:25 DRYWALL FINISHER, Once, Stat, PRN to keep oxygen saturation above 95%., 24 Electrocardiogram:Time 05/16/2011 20:31:00, rate 85, normal sinus rhythm, No ST- T changes, no ectopy, normal ND & QRS intervals. Impression and Plan Chest [...] MANN MD On: 05/16/2011 09:41 PM Source: [facility] Engage MobilityCHART Document Id: [id number]} ALL FINISHER Cristy Draper R.N. - 05/16/2011 8:10 PM CST ED Treatments and Procedures ED Treatments and Procedures Entered On: 05/16/2011 20:24 DRYWALL FINISHER Performed On: 05/16/2011 20:10 DRYWALL FINISHER by CRISTY MEYER RN Cardiac Monitoring Monitoring Lead : II Monitoring Lead Record Press Operator : Initiated CRISTY MEYER RN - 05/16/2011 20:24 DRYWALL FINISHER Source: [facility] [email or web address] Document Id: [id number] DRYWALL FINISHER!4 ALL FINISHER documented in this encounter Miscellaneous Notes Miscellaneous - Cristy Draper R.N. - 05/16/2011 9:39 PM CST Discharge Vital Signs Form Discharge Vital Signs Form Entered On: 05/16/2011 21:40 DRYWALL FINISHER Performed On: 05/16/2011 21:39 DRYWALL FINISHER by CRISTY MEYER RN Vital Signs Temperature Core : 37.2C(Converted to: 99.0DegF) Apical Heart Rate : 82/min Respiratory Rate : 18/min Systolic Blood Pressure : 131mmHg Diastolic Blood Pressure : 91mmHg (>HHI) NIBP Mean : 104mmHg BP Location : Left upper extremity SpO2 : 96% Oxygen Therapy : Room air CRISTY MEYER RN - 05/16/2011 21:39 DRYWALL FINISHER Source: [facility] [email or web address] Document Id: [id number] DRYWALL FINISHER!11 ALL FINISHER Cristy Walsh R.N. - 05/16/2011 9:38 PM CST Valuables/Belongings Valuables/Belongings Entered On: 05/16/2011 21:39 DRYWALL FINISHER Performed On: 05/16/2011 21:38 DRYWALL FINISHER by CRISTY MEYER RN Valuables/Belongings Valuables/Belongings Grid Valuables with Patient Clothes, Patient Valuables : Jacket, Pants, Shirt, Shoes Jewelry : Necklace, Wedding band CRISTY MEYER RN - 05/16/2011 21:38 DRYWALL FINISHER Home Medication Disposition : None brought in with patient CRISTY MEYER RN - 05/16/2011 21:38 DRYWALL FINISHER Source: [facility] POWERCHART Document Id: [id number] DRYWALL FINISHER!7 ALL FINISHER Martin - Cristy Draper R.N. - 05/16/2011 8:07 PM CST Facility Charge Ticket Facility Charge Ticket Entered On: 05/16/2011 21:38 DRYWALL FINISHER Performed On: 05/16/2011 20:07 DRYWALL FINISHER by CRISTY MEYER RN Facility Charge TVL Level for Facility Charge Ticket : Level 4 Lynx Total Points with Diagnosis Control : 11 Lynx Visit Level : 96141 Level 4 GUERDA BUGRESS - 05/23/2011 9:40 DRYWALL FINISHER Mode of Arrival ED : Private vehicle [...] 1830 CRISTY MEYER RN - 05/16/2011 21:38 DRYWALL FINISHER Chief Complaint 8.50.02 Reason For Visit Category : Cardiorespiratory ED Chief Complaint Cardiorespiratory 8.5 : Chest pain TVL Calc : 20 TVL for Facility Charge Ticket Dx : Level 5 CRISTY MEYER RN - 05/16/2011 21:38 DRYWALL FINISHER Source: [facility] POWERCHART Document Id: [id number] DRYWALL FINISHER!5 ALL FINISHER documented in this encounter Plan of Treatment Not on filedocumented as of this encounter Procedures Procedure Name Priority Date/Time Associated Diagnosis Comme nts CREATINE KINASE Routine 05/16/2011 8:41 PM Result s for this (CK) MB ISOENZYME, DRYWALL FINISHER procedure are in S the results section. AUTOMATED Routine 05/16/2011 8:41 PM Results f or this DIFFERENTIAL, B DRYWALL FINISHER procedure ar e in the results section. CBC WITH Routine 05/16/2011 8:41 PM Results f or this DIFFERENTIAL, B DRYWALL FINISHER procedure ar e in the results section. TROPONIN T, 5TH Routine 05/16/2011 8:41 PM Result s for this GEN, P DRYWALL FINISHER procedure are i n the results section. CREATINE KINASE Routine 05/16/2011 8:41 PM Result s for this (CK), S DRYWALL FINISHER procedure are i n the results section. BASIC METABOLIC Routine 05/16/2011 8:41 PM Result s for this PANEL, S/P DRYWALL FINISHER procedure are i n the results section. documented in this encounter Results Automated Differential (05/16/2011 8:41 PM DRYWALL FINISHER) athologist Signature Neutro % 63.4 42.0 - POWERCHART 77.0 Lymphocytes % 27.1 23.0 - POWERCHART 44.0 HX [place] % 7.5 2.0 - 11.0 POWERCHART HX [...] Blood 05/16/2011 8:41 PM 201 2 8:41 DRYWALL FINISHER PM DRYWALL FINISHER Misael Mann M.D. LAB BLOOD ADD-ON Performing Organization Address City/State/ZIP Code Phon e Number POWERCHART (ABNORMAL) CBC with Differential (05/16/2011 8:41 PM DRYWALL FINISHER) [facility] gist Method Time Signature Leukocytes 10.1 4.8 [...] / Volume Laterality Blood 05/16/2011 8:41 PM DRYWALL FINISHER Misael Mann M.D. LAB BLOOD ADD-ON Performing Organization Address City/State/ZIP Code Phon e Number POWERCHART CK (Creatine Kinase) (05/16/2011 8:41 PM DRYWALL FINISHER) P athologist Signature Creatine Kinase 65 21 - 232 UL POWERCHART (CK), S Specimen (Source) Anatomical Collection Method Collection Time Re ceived Time Location / / Volume Laterality Blood 05/16/2011 8:41 PM DRYWALL FINISHER Misael Mann M.D. LAB BLOOD ADD-ON Performing Organization Address City/[facility]/ZIP Code Phon e Number POWERCHART Creatine Kinase (CK) MB Isoenzyme (05/16/2011 8:41 PM DRYWALL FINISHER) P athologist Signature Creatine 1.4 0.1 - 6.2 POWERCHART Kinase(CK) MB NGML Isoenzyme, S Specimen (Source) Anatomical Collection Method Collection Time Re ceived Time Location / / Volume Laterality Blood 05/16/2011 8:41 PM DRYWALL FINISHER Misael Mann M.D. LAB BLOOD ADD-ON Performing Organization Address City/State/ZIP Code Phon e Number POWERCHART (ABNORMAL) BMP (Basic Metabolic Panel) (05/16/2011 8:41 PM DRYWALL FINISHER) Patholo gist Method Time Signature Sodium, S [...] MMOLL HXeGFR (MDRD) >60 (H) <=61 POWERCHART [id number] Comment: A GFR of <60 mL/min is indicative of chr onic kidney disease. (MDRD calculation valid on patients 18 - 70 years.) eGFR Black/ >60 MLMIN PO WERCHART Glucose 94 70 - 139 MGDL POWERCHART Specimen (Source) Anatomical Collection Method Collection Time Re ceived Time Location / / Volume Laterality Blood 05/16/2011 8:41 PM DRYWALL FINISHER Misael Mann M.D. LAB BLOOD ADD-ON Performing Organization Address City/State/ZIP Code Phon e Number POWERCHART Troponin T (05/16/2011 8:41 PM DRYWALL FINISHER) P athologist Signature Troponin T, S <0.01 0.00 - 0.10 POWERCHART NGML Comment: Below measuring range Specimen (Source) Anatomical Collection Method Collection Time Re ceived Time Location / / Volume Laterality Blood 05/16/2011 8:41 PM DRYWALL FINISHER Misael Mann M.D. LAB BLOOD ADD-ON Performing Organization Address City/State/ZIP Code Phon e Number POWERCHART documented in this encounter Visit Diagnoses Not on filedocumented in this encounter
--- OUTSIDE RECORDS SUMMARY | 2022-02-10 13:27 | XMS_ITS | Encounter Summary ---
:1970 Author Organization [facility] Address [address] [place] [address] Care Team Providers Name Role Phone Unavailable Primary Care Provider Unavailable Encounter Details Date Type Department Care Team Description 11/22/2007 Hospital Encounter HX [facility] EHW Provider, Historic al Social History Tobacco Use Types Packs/Day Years Used Date Smoking Tobacco: Never Assessed Sex Assigned at Date Recorded Not on file documented as of this encounter Plan of Treatment Not on filedocumented as of this encounter Visit Diagnoses Not on filedocumented in this encounter
--- OUTSIDE RECORDS SUMMARY | 2022-02-10 13:27 | XMS_ITS | Encounter Summary ---
:1970 Author Organization [facility] Address [address] [place] [address] Care Team Providers Name Role Phone Unavailable Primary Care Provider Unavailable Encounter Details Date Type Department Care Team Description 09/02/2002 Hospital Encounter HX NO MAPPING Tony Polanco M.D. [address] [place], [place] [phone] (Wo rk) Social History Tobacco Use Types Packs/Day Years Used Date Smoking Tobacco: Never Assessed Sex Assigned at Date Recorded Not on file documented as of this encounter Plan of Treatment Not on filedocumented as of this encounter Visit Diagnoses Not on filedocumented in this encounter
--- OUTSIDE RECORDS SUMMARY | 2022-02-10 13:27 | XMS_ITS | Encounter Summary ---
:1970 Author Organization [facility] Address [address] [place] [address] Care Team Providers Name Role Phone Unavailable Primary Care Provider Unavailable Encounter Details Date Type Department Care Team Description 11/21/2006 Hospital Encounter HX [facility] Provider, Historic al Social History Tobacco Use Types Packs/Day Years Used Date Smoking Tobacco: Never Assessed Sex Assigned at Date Recorded Not on file documented as of this encounter Plan of Treatment Not on filedocumented as of this encounter Visit Diagnoses Not on filedocumented in this encounter
--- OUTSIDE RECORDS SUMMARY | 2022-02-10 13:27 | XMS_ITS | Encounter Summary ---
:1970 Author Organization [facility] Address [address] [place] [address] Care Team Providers Name Role Phone Unavailable Primary Care Provider Unavailable Encounter Details Date Type Department Care Team Description 09/03/2002 Hospital Encounter HX NO MAPPING Jhon Bourne M.D. Social History Tobacco Use Types Packs/Day Years Used Date Smoking Tobacco: Never Assessed Sex Assigned at Date Recorded Not on file documented as of this encounter Plan of Treatment Not on filedocumented as of this encounter Visit Diagnoses Not on filedocumented in this encounter
--- OUTSIDE RECORDS SUMMARY | 2022-02-10 13:27 | XMS_ITS | Encounter Summary ---
:1970 Author Organization [facility] Address [address] [place] [address] Care Team Providers Name Role Phone Unavailable [...] Provider Ser - 09/03/2002 12:00 AM CDT [id number] Abstracted by JA Underwriting Clerk on [address] [place] [id number] . H. Blee, M.D.Room No. [id number], THERESA : 68EMERGEN ROOM NOTECHIEF COMPLAI NT: Left-sided abdominal pain. [...] followup on a p.r.n. basis. Jhon Bourne M.D./[facility]: 09/03/02T: 09/03/02 Source: [facility] [id number] Document Id: [id number] documented in this encounter Plan of Treatment Not on filedocumented as of this encounter Visit Diagnoses Not on filedocumented in this encounter
--- OUTSIDE RECORDS SUMMARY | 2022-02-10 13:27 | XMS_ITS | Encounter Summary ---
:1970 Author Organization [facility] Address [address] [place] [address] Care Team Providers Name Role Phone Unavailable [...]
--- OUTSIDE RECORDS SUMMARY | 2022-02-10 13:27 | XMS_ITS | Encounter Summary ---
:1970 Author Organization [facility] Address [address] [place] [address] Care Team Providers Name Role Phone Unavailable Primary Care Provider Unavailable Encounter Details Date Type Department Care Team Description 09/02/2002 Hospital Encounter HX NO MAPPING Provider, Historical Social History Tobacco Use Types Packs/Day Years Used Date Smoking Tobacco: Never Assessed Sex Assigned at Date Recorded Not on file documented as of this encounter Miscellaneous Notes Miscellaneous - Maryann, Amber Provider Ser - 09/02/2002 12:00 AM CDT [id number] Addended by: ARNULFO QUINN on: 09/06/2002,1:48 PMModules accepted: Order SummaryAddended by: ARNULFO BUCKLEY on: 09/06/2002,1:42 PMModules accepted: Order SummaryAddended by: ARNULFO QUINN on: 09/06,1:39 PMModules accepted: Order Summary Source: [facility] [id number] Document Id: [id number] documented in this encounter Plan of Treatment Not on filedocumented as of this encounter Visit Diagnoses Not on filedocumented in this encounter
--- OUTSIDE RECORDS SUMMARY | 2022-02-10 13:28 | XMS_ITS | Encounter Summary ---
:1970 Author Organization [facility] Address [address] [place] [address] Care Team Providers Name Role Phone None, Pcp Primary Care Provider Unavailable Reason for Visit Reason Comments Med Refill tylenol with markienmimi Encounter Details Date Type Department Care Team Description 03/30/2020 Office Visit Evgeny Green, Arthralgia of right ankle (P rimary Dx); [address] Pes planus of both feet; [place] [address] Bilateral carpal tunnel syndrome; [address] [place] Elevated blood pressure read ing; [phone] Impaired fasting glucose; [phone] Tobacco use (Work) Social History Tobacco Use [...] Comments Blood Pressure 144/80 03/30/2020 1:42 PM MOBILE MANAGER Pulse 84 03/30/2020 1:42 PM MOBILE MANAGER Temperature 37.1 ??C (98.8 ??F) 03/30/2020 1:42 PM MOBILE MANAGER Respiratory Rate 16 03/30/2020 1:42 PM MOBILE MANAGER Oxygen Saturation 96% 03/30/2020 1:42 PM MOBILE MANAGER Inhaled Oxygen Concentration - - Weight 98.4 kg (217 lb) 03/30/2020 1:42 PM MOBILE MANAGER Height - - Body Mass Index 39.69 06/23/2019 2:07 PM MOBILE MANAGER documented in this encounter Patient Instructions Patient [...] a log of your blood pressure values. LE MANAGER documented in this encounter Progress Notes Evgeny Vann MD - 03/30/2020 1:40 PM CST Estab Patient Visit Subjective Patient ID: Candy Grullon is a 49 y.o. female. Chief Complaint Patient presents with ??? Med Refill tylenol with codiene [facility] Patient requesting tylenol with codeine prescription. [...] did not help. She did PT at [facility] in the past but it did not help (she describes they applied stimulators to her ankle that did not help). She works for [employer]. 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 Her recently [...] She has been seen by Rheumatology at [place] in the past and negative for connective [...] Recheck. Note created using voice dictation software. LE MANAGER documented in this encounter Plan of Treatment Not on filedocumented as of this encounter Results (ABNORMAL) Basic metabolic panel (03/31/2020 8:35 AM MOBILE MANAGER) P athologist Signature Sodium 140 135 - 145 03/31/2020 [facility] [place] mmol/L 9:21 AM MOBILE MANAGER [place] Potassium 4.3 3.5 - 5.1 03/31/2020 [facility] [place] mmol/L 9:21 AM MOBILE MANAGER [place] Comment: . Chloride 101 98 - 107 mmol/L 03/31/2020 9:21 AM MOBILE MANAGER O [place] Comment: . CO2 28 22 - 29 mmol/L 03/31/2020 9:21 AM MOBILE MANAGER [facility] [place] Comment: . Creatinine 0.7 0.4 - 1.2 mg/dL 03/31/2020 9:21 AM MOBILE MANAGER [facility] [place] Comment: . BUN 13 5 - 25 mg/dL 03/31/2020 9:21 AM MOBILE MANAGER [facility] [place] Comment: . Glucose 103 (H) 70 - 100 mg/dL 03/31/2020 9:21 AM MOBILE MANAGER OM [facility] [place] Calcium, Total,S 9.3 8.4 - 10.2 mg/dL 03/31/2020 9:21 AM MOBILE MANAGER [facility] [place] MCDANIEL Comment: . Specimen Anatomical Collection Method Collection Time Receive d Time (Source) Location / / Volume Laterality Blood (Blood, 03/31/2020 8:35 AM 03/31/20 20 8:35 Venous) MOBILE MANAGER AM MOBILE MANAGER Evgeny Vann MD LAB BLOOD ORDERABLES Performing Organization Address City/State/ZIP Code Phon e Number [facility] LISA MCDANIEL [address] [place] [address] (ABNORMAL) Lipid panel (03/31/2020 8:35 AM MOBILE MANAGER) athologist Signature Cholesterol 187 0 - 199 03/31/2020 [facility] mg/dL 2:35 PM [facility] Comment: Recommended by National Cholesterol Education Program (ATP III) -------- Cholesterol Ranges -------- <200 ?Desirable 200-239 ? Borderline high >=240 ? High Triglycerides 48 0 - 149 mg/dL 03/31/2020 2:35 PM [facility] Comment: -------- TRIG Ranges -------- <150 ?Normal 150-199 ? Borderline high 200-499 ? High >=500 ? Very high HDL 68 40 - 250 mg/dL 03/31/2020 2:35 PM [facility] Comment: -------- HDL Ranges -------- <40 ?Low 40-59 ?Normal >=60 ? Optimal LDL Calculated 109 (H) 0 - 99 mg/dL 03/31/2020 2:35 PM [facility] Comment: -------- LDL Ranges -------- <100 ? Optimal 100-129 ?Near optimal/above op timal 130-159 ?Borderline high 160-189 ?High >=190 ?Very high Fasting? Yes 03/31/2020 8:[address] [facility] Specimen Anatomical Collection Method Collection Time Receive d Time (Source) Location / / Volume Laterality Blood (Blood, 03/31/2020 8:35 AM 03/31/20 20 1:09 Venous) MOBILE MANAGER PM MOBILE MANAGER Evgeny Vann MD LAB BLOOD ORDERABLES Performing Organization Address [facility] Phon e Number [facility] [address] [place] [address] Hemoglobin A1c (03/31/2020 8:35 AM MOBILE MANAGER) P athologist Signature Hemoglobin A1C 5.4 4.0 - 5.6 03/31/2020 [facility] % A1C 1:51 PM MOBILE MANAGER [facility] Comment: Reference Range 4.0-5.6% is [...] 03/31/2020 8:35 AM 03/31/20 20 1:09 Venous) MOBILE MANAGER PM MOBILE MANAGER Evgeny Vann MD LAB BLOOD ORDERABLES Performing Organization Address City/[facility]/ZIP Code Phon e Number [facility] [address] [place] [address] documented in this encounter Visit Diagnoses Diagnosis Arthralgia of right ankle - Primary Pes planus of both feet Bilateral carpal tunnel syndrome Carpal tunnel syndrome Elevated blood pressure reading Elevated blood pressure reading without diagnosis of hypertension Impaired fasting glucose Tobacco use documented in this encounter Care Teams Benzene Still Utility Operator Relationship Specialty Start Date End Date None, Pcp PCP - General Mud Analysis Operator 03/30/20 12/19/20 [address] [place] [address] documented as of this encounter
--- OUTSIDE RECORDS SUMMARY | 2022-02-10 13:28 | XMS_ITS | Encounter Summary ---
:1970 Author Organization [facility] Address [address] [place] [address] Care Team Providers Name Role Phone Evgeny Vann MD Primary Care Provider Reason for Visit Reason Onset Date Comments Colonoscopy 12/01/2021 Encounter Details Date Type Department Care Team Description 12/01/2021 Telephone [place] Evgeny Vann MD Colonoscopy [address] [place], [place] [address] [place], [place] [phone] (Wo rk) Social History Tobacco Use Types [...] on filedocumented in this encounter Care Teams Assistant Professor Relationship Specialty Start Date End Date Evgeny Vann MD PCP - General 12/20/[address] [place] [address] documented as of this encounter
--- OUTSIDE RECORDS SUMMARY | 2022-02-10 13:28 | XMS_ITS | Encounter Summary ---
:1970 Author Organization [facility] Address [address] [place] [address] Care Team Providers Name Role Phone None, Pcp Primary Care Provider Unavailable Encounter Details Date Type Department Care Team Description 03/31/2020 Lab [place] Impaired fasting glucose; [address] [...] Elevated blood Results for this FILTRATION RATE COLLET MAKING MACHINE OPERATOR pressure reading procedur e are in the results section. HEMOGLOBIN A1C Routine 03/31/2020 8:35 AM Impaired fasting Res ults for this COLLET MAKING MACHINE OPERATOR glucose procedure are i n the results section. LIPID PANEL Routine 03/31/2020 8:35 AM Impaired fasting Resul ts for this COLLET MAKING MACHINE OPERATOR glucose procedure are i n the results section. BASIC METABOLIC Routine 03/31/2020 8:35 AM Elevated blood Resu lts for this PANEL COLLET MAKING MACHINE OPERATOR pressure reading procedure a re in the results section. documented in this encounter Results Glomerular filtration rate (GFR) (03/31/2020 8:35 AM COLLET MAKING MACHINE OPERATOR) P athologist Signature GFR >60 03/31/2020 [facility] 9:21 AM COLLET MAKING MACHINE OPERATOR [facility] >60 03/31/2020 [facility] Icelandic GFR 9:21 AM COLLET MAKING MACHINE OPERATOR [facility] Comment: GFR calculated from serum creatinine v alue Chronic Kidney Disease less than 60 mL/m in/1.73 m2 Kidney Failure less than 15 mL/min/1.73 m2 Note: effective 09/05/06 IDMS-Traceable MDRD Study Equation used. Specimen Anatomical Collection Method Collection Time Receive d Time (Source) Location / / Volume Laterality 03/31/2020 8:35 AM 0 8:35 COLLET MAKING MACHINE OPERATOR AM COLLET MAKING MACHINE OPERATOR Evgeny Vann MD LAB BLOOD ORDERABLES Performing Organization Address City/Va Hospital/ZIP Code Phon e Number [facility] [address] [place] [address] (ABNORMAL) Basic metabolic panel (03/31/2020 8:35 AM COLLET MAKING MACHINE OPERATOR) P athologist Signature Sodium 140 135 - 145 03/31/2020 [facility] [place] mmol/L 9:21 AM COLLET MAKING MACHINE OPERATOR [place] Potassium 4.3 3.5 - 5.1 03/31/2020 [facility] [place] mmol/L 9:21 AM COLLET MAKING MACHINE OPERATOR [place] Comment: . Chloride 101 98 - 107 mmol/L 03/31/2020 9:21 AM COLLET MAKING MACHINE OPERATOR [facility] [place] Comment: . CO2 28 22 - 29 mmol/L 03/31/2020 9:21 AM COLLET MAKING MACHINE OPERATOR [facility] [place] Comment: . Creatinine 0.7 0.4 - 1.2 mg/dL 03/31/2020 9:21 AM COLLET MAKING MACHINE OPERATOR C [place] Comment: . BUN 13 5 - 25 mg/dL 03/31/2020 9:21 AM COLLET MAKING MACHINE OPERATOR C [place] Comment: . Glucose 103 (H) 70 - 100 mg/dL 03/31/2020 9:21 AM COLLET MAKING MACHINE OPERATOR OM [facility] [place] Calcium, Total,S 9.3 8.4 - 10.2 mg/dL 03/31/2020 9:21 AM COLLET MAKING MACHINE OPERATOR C [place] Comment: . Specimen Anatomical Collection Method Collection Time Receive d Time (Source) Location / / Volume Laterality Blood (Blood, 03/31/2020 8:35 AM 03/31/20 20 8:35 Venous) COLLET MAKING MACHINE OPERATOR AM COLLET MAKING MACHINE OPERATOR Evgeny Vann MD LAB BLOOD ORDERABLES Performing Organization Address City/Va Hospital/ZIP Code Phon e Number [facility] [place] [address] [place] [address] Hemoglobin A1c (03/31/2020 8:35 AM COLLET MAKING MACHINE OPERATOR) P athologist Signature Hemoglobin A1C 5.4 4.0 - 5.6 03/31/2020 [facility] % A1C 1:51 PM [facility] Comment: Reference Range 4.0-5.6% is [...] 03/31/2020 8:35 AM 03/31/20 20 1:09 Venous) COLLET MAKING MACHINE OPERATOR PM COLLET MAKING MACHINE OPERATOR Evgeny Vann MD LAB BLOOD ORDERABLES Performing Organization Address City/State/ZIP Code Phon e Number [facility] [address] [place] [address] (ABNORMAL) Lipid panel (03/31/2020 8:35 AM COLLET MAKING MACHINE OPERATOR) athologist Signature Cholesterol 187 0 - 199 03/31/2020 [facility] mg/dL 2:35 PM [facility] Comment: Recommended by National Cholesterol Education Program (ATP III) -------- Cholesterol Ranges -------- <200 ?Desirable 200-239 ? Borderline high >=240 ? High Triglycerides 48 0 - 149 mg/dL 03/31/2020 2:35 PM [facility] Comment: -------- TRIG Ranges -------- <150 ?Normal 150-199 ? Borderline high 200-499 ? High >=500 ? Very high HDL 68 40 - 250 mg/dL 03/31/2020 2:35 PM [facility] Comment: -------- HDL Ranges -------- <40 ?Low 40-59 ?Normal >=60 ? Optimal LDL Calculated 109 (H) 0 - 99 mg/dL 03/31/2020 2:35 PM COLLET MAKING MACHINE OPERATOR [facility] Comment: -------- LDL Ranges -------- <100 ? Optimal 100-129 ?Near optimal/above op timal 130-159 ?Borderline high 160-189 ?High >=190 ?Very high Fasting? Yes 03/31/2020 8:35 AM COLLET MAKING MACHINE OPERATOR [facility] Specimen Anatomical Collection Method Collection Time Receive d Time (Source) Location / / Volume Laterality Blood (Blood, 03/31/2020 8:35 AM 03/31/20 20 1:09 Venous) COLLET MAKING MACHINE OPERATOR PM COLLET MAKING MACHINE OPERATOR Evgeny Vann MD LAB BLOOD ORDERABLES Performing Organization Address City/State/ZIP Code Phon e Number [facility] [address] [place] [address] documented in this encounter Visit Diagnoses Diagnosis Impaired fasting glucose Elevated blood pressure reading Elevated blood pressure reading without diagnosis of hypertension documented in this encounter Care Teams Water Meter Reader Relationship Specialty Start Date End Date None, Pcp PCP - General Cab Starter 03/30/20 12/19/20 [address] [place] [address] documented as of this encounter
--- OUTSIDE RECORDS SUMMARY | 2022-02-10 13:28 | XMS_ITS | Encounter Summary ---
:1970 Author Organization [facility] Address [address] [place] [address] Care Team Providers Name Role Phone None, Pcp Primary Care Provider Unavailable Encounter Details Date Type Department Care Team Description 07/23/2020 Immunization Family Medicine [address] [place] [address] Social History Tobacco Use Types Packs/Day Years [...] on filedocumented in this encounter Care Teams Poultry Farmer Egg Relationship Specialty Start Date End Date None, Pcp PCP - General Loom Winder Tender 03/30/20 12/19/20 [address] [place] [address] documented as of this encounter
--- OUTSIDE RECORDS SUMMARY | 2022-02-10 13:28 | XMS_ITS | Encounter Summary ---
:1970 Author Organization [facility] Address [address] [place] [address] Care Team Providers Name Role Phone None, Pcp Primary Care Provider Unavailable Reason for Visit Reason Comments Chest Pain Congestion, not pain Encounter Details Date Type Department Care Team Description 10/14/2020 Office Visit Evgeny Green, Bronchitis (Primary [address] MD Dx) [place], [place] [address] [place] [address] [place], [place] [phone] Social History Tobacco Use Types Packs/Day Years [...] other clear broths. General instructions ?? Take jtqk-tyg-qevjjps and prescription medicines only as told by [...] not have soap and water, use hand quality systems specialist. ?? Avoid touching your mouth, face, eyes, [...] get better within 7-10 days. ?? Take mclu-pgu-qfxwdie and prescription medicines only as told by your doctor. This information is not intended to replace advice given to you by your health care provider. Make sure you discuss any questions you have with your health care provider. Document Released: 09/25/2008 Document Revised: 04/17/2019 Document Reviewed: 11/30/2017 Secret [employer] Interactive Patient Education ?? 2020 [employer]. documented in this encounter Progress Notes Evgeny [...] other clear broths. General instructions ?? Take utpd-opm-mgsecit and prescription medicines only as told by [...] not have soap and water, use hand quality systems specialist. ?? Avoid touching your mouth, face, eyes, [...] get better within 7-10 days. ?? Take xfzw-jcl-dkbbyue and prescription medicines only as told by your doctor. This information is not intended to replace advice given to you by your health care provider. Make sure you discuss any questions you have with your health care provider. Document Released: 09/25/2008 Document Revised: 04/17/2019 Document Reviewed: 11/30/2017 Secret Recipe Interactive Patient Education ?? 2020 [employer]. Return if symptoms worsen or fail to improve. Note created using voice dictation software. documented in this encounter Plan of Treatment Not on filedocumented as of this encounter Visit Diagnoses Diagnosis Bronchitis - Primary Bronchitis, not specified as acute or ch ronic documented in this encounter Care Teams Lifeguard Relationship Specialty Start Date End Date None, Pcp PCP - General Hospital Staff Pharmacist 03/30/20 12/19/20 [address] [place] [address] documented as of this encounter
--- OUTSIDE RECORDS SUMMARY | 2022-02-10 13:28 | XMS_ITS | Clinical Summary ---
:1970 Author Organization [facility] Address [address] [place] [address] Care Team Providers Name Role Phone Evgeny [...] ss Type Group PREFERRED ONE PREFERRED ONE [id number] 2020-Present [address] [place] [address] Care Teams Tire Stripper Relationship Specialty Start Date End Date Evgeny Vann MD PCP - General 12/20/[address] [place] [address]
--- OUTSIDE RECORDS SUMMARY | 2022-02-10 13:28 | XMS_ITS | Encounter Summary ---
:1970 Author Organization [facility] Address [address] [place] [address] Care Team Providers Name Role Phone Silvana Velarde APRN, KEEGAN Primary Care Provider [phone] Reason for Visit Reason Onset Date Comments RX 07/14/2019 Encounter Details Date Type Department Care Team Description 07/14/2019 Telephone IndustrySilvana Fenton, RX [address] [place] [address] [address] [address] [facility] [address] [phone] [place], [place] [address] Social History Tobacco Use [...] away. He is having surgery down at [place] on August 05. She just wants it for preventative. Telephone Encounter - Libra Chen - 07/14/2019 10:43 AM CDT Patient would like to speak to a nurse about ZPAC. Please call her at [phone]. documented in this encounter Plan of Treatment Not on filedocumented as of this encounter Visit Diagnoses Diagnosis Cough - Primary documented in this encounter Care Teams Race Relations Professor Relationship Specialty Start Date End Date Silvana Velarde APRN, FRONT OFFICE COORDINATOR PCP - General 11/27/17 12/29/19 100 [facility] [address] documented as of this encounter
--- OUTSIDE RECORDS SUMMARY | 2022-02-10 13:28 | XMS_ITS | Encounter Summary ---
:1970 Author Organization [facility] Address [address] [place] [address] Care Team Providers Name Role Phone Silvana Velarde APRN, COMMERCIAL LIGHT FIXTURE ASSEMBLER Primary Care Provider [phone] Encounter Details Date Type Department Care Team [...] on filedocumented in this encounter Care Teams Informatics Application Analyst Relationship Specialty Start Date End Date Silvana Velarde APRN, COMMERCIAL LIGHT FIXTURE ASSEMBLER PCP - General 11/27/17 12/29/19 100 [facility] [place] [address] documented as of this encounter
--- OUTSIDE RECORDS SUMMARY | 2022-02-10 13:28 | XMS_ITS | Encounter Summary ---
:1970 Author Organization [facility] Address [address] [place] [address] Care Team Providers Name Role Phone None, Pcp Primary Care Provider Unavailable Reason for Visit Reason Comments Eye Encounter Details Date Type Department Care Team Description 08/02/2020 Office Visit Shawna Quintanilla Acute bacterial conjunctivit is of right eye (Primary Dx); [address] [facility] [place] Acute nonintractable headache, unspecifi ed headache type [place] [address] [place] [phone] [place] [address] Social History Tobacco Use Types Packs/Day Years [...] she will be doing fairly soon at [facility] as well as we discussed colon cancer screening. documented in this encounter Plan of Treatment Not on filedocumented as of this encounter Visit Diagnoses Diagnosis Acute bacterial conjunctivitis of right eye - Primary Acute nonintractable headache, unspecifi ed headache type documented in this encounter Care Teams Office Clerk Assistant Relationship Specialty Start Date End Date None, Pcp PCP - General Hebrew Cantor 03/30/20 12/19/20 [address] [place] [address] documented as of this encounter
--- OUTSIDE RECORDS SUMMARY | 2022-02-10 13:28 | XMS_ITS | Encounter Summary ---
:1970 Author Organization [facility] Address [address] [place] [address] Care Team Providers Name Role Phone None, Pcp Primary Care Provider Unavailable Encounter Details Date Type Department Care Team Description 08/13/2020 Immunization Family Medicine [address] [place] [address] Social History Tobacco Use Types Packs/Day Years [...] on filedocumented in this encounter Care Teams Finance Specialist Relationship Specialty Start Date End Date None, Pcp PCP - General Window Cleaner 03/30/20 12/19/20 [address] [place] [address] documented as of this encounter
--- OUTSIDE RECORDS SUMMARY | 2022-02-10 13:29 | XMS_ITS | Encounter Summary ---
:[address] [facility] Address [address] [place] [address] Care Team Providers Name Role Phone Silvana Velarde Silva HUNT, METAL BURNISHER Primary Care Provider [phone] Reason for Visit Reason Comments Sore Throat Started Sunday Morning Cough Encounter Details Date Type Department Care Team Description 06/23/2019 Office Visit Shawna Quintanilla Bronchitis (Primary Dx) [address] MD Vasquez [place], [place] [address] [facility] [address] [place] [address] Social History Tobacco Use Types Packs/Day Years Used Date Current Every Day Smoker Smokeless Tobacco: Never Used Alcohol Use Standard Drinks/Week Comments Yes 0 (1 standard drink = 0.6 oz pure alcoho l) Sex Assigned at Date Recorded Not on file documented as of this encounter Last Filed Vital Signs Vital Sign Reading Time Taken Comments Blood Pressure 150/88 06/23/2019 2:07 PM TECHNICAL IMPLEMENTATION LEAD Pulse 92 06/23/2019 2:07 PM TECHNICAL IMPLEMENTATION LEAD Temperature 37.3 ??C (99.1 ??F) 06/23/2019 2:07 PM TECHNICAL IMPLEMENTATION LEAD Respiratory Rate 16 06/23/2019 2:07 PM TECHNICAL IMPLEMENTATION LEAD Oxygen Saturation - - Inhaled Oxygen Concentration - - Weight 100 kg (220 lb 14.4 oz) 06/23/2019 2:07 PM TECHNICAL IMPLEMENTATION LEAD Height 157.5 cm (5' 2) 06/23/2019 2:07 PM TECHNICAL IMPLEMENTATION LEAD Body Mass Index 40.4 06/23/2019 2:07 PM TECHNICAL IMPLEMENTATION LEAD documented in this encounter Progress Notes Shawna [...] the next week or 2 down at [facility] and he has had just a whole series of medical issues in the last several months. She is also wanting to get a day or 2 off work because she works the third shift at [employer] and is just, running her down at [...] under the weather her blood pressure is [id number] pulse is 92 her temp is 99.1 [...] if does not improve or gets worse. NICAL IMPLEMENTATION LEAD documented in this encounter Plan of Treatment Not on filedocumented as of this encounter Visit Diagnoses Diagnosis Bronchitis - Primary Bronchitis, not specified as acute or ch ronic documented in this encounter Care Teams Code Number Stamper Relationship Specialty Start Date End Date Silvana Velarde, COUNTER SERVER, METAL BURNISHER PCP - General 11/27/17 12/29/19 100 [facility] [place] [address] documented as of this encounter
--- OUTSIDE RECORDS SUMMARY | 2022-02-10 13:29 | XMS_ITS | Encounter Summary ---
:1970 Author Organization [facility] Address [address] [place] [address] Care Team Providers Name Role Phone Silvana Velarde LICENS[address] COURT MAGISTRATE, HEALTH CLUB MANAGER Primary Care Provider [phone] Reason for Visit Reason Onset Date Comments APPT CANCEL 04/04/2018 Encounter Details Date Type Department Care Team Description 04/04/2018 Telephone Harlan Silvana Velarde, APPT CANCEL [address] MAGISTRATE, HEALTH CLUB MANAGER [place], [place] [address] [address] [facility] [address] [phone] [place], [place] [address] Social History Tobacco Use Types Packs/Day Years Used Date Current Every Day Smoker Smokeless Tobacco: Never Used Alcohol Use Standard Drinks/Week Comments Yes 0 (1 standard drink = 0.6 oz pure alcoho l) Sex Assigned at Date Recorded Not on file documented as of this encounter Miscellaneous Notes Telephone Encounter - Shayy Perez MA - 04/04/2018 11:05 AM CST FYI B TECH Telephone Encounter - Kylee Anglin - 04/04/2018 10:59 AM CST The patient called to cancel her appt tomorrow with Magnus and wanted to let her know that she just found Aleve Back and Joint pain and it's really helped. She also has a rheumatology appt coming up yet in March at [facility]. She noticed enough improvement, that she didn't think she'd need towaste your time. B TECH documented in this encounter Plan of Treatment Not on filedocumented as of this encounter Visit Diagnoses Not on filedocumented in this encounter Care Teams Barrel Marker Relationship Specialty Start Date End Date Silvana Velarde APRN, HEALTH CLUB MANAGER PCP - General 11/27/17 12/29/19 100 [facility] [place] [address] documented as of this encounter
--- OUTSIDE RECORDS SUMMARY | 2022-02-10 13:29 | XMS_ITS | Encounter Summary ---
:1970 Author Organization [facility] Address [address] [place] [address] Care Team Providers Name Role Phone Silvana Velarde APRN, MANAGER PULMONARY Primary Care Provider [phone] Reason for Visit Reason Onset Date Comments ALLERGIC REACTION 03/06/2018 Encounter Details Date Type Department Care Team Description 03/06/2018 Telephone [place] Fenton, ALLERGIC REACTION [address] KEEGAN HUNT [place] [address] [address] [facility] [address] [phone] [place], [place] [address] Social History Tobacco Use [...] - 03/06/2018 9:09 AM CST Patient informed CRANE OPERATOR Telephone Encounter - Silvana Velarde APRN, KEEGAN - 03/06/2018 8:50 AM PORT CRANE OPERATOR Absolutely from the Prednisone, have her stop it and return to the Ibuprofen. I will call her when all the lab results are done. Marcell, Magnus CRANE OPERATOR Telephone Encounter - Shayy Perez MA - 03/06/2018 8:25 AM CST Could this be a side effect? Is there something else you could prescribe? CRANE OPERATOR Telephone Encounter - Kylee Anglin - 03/06/2018 8:10 AM CST The patient stopped in this morning stating she had horrible nightmares and is all shaky. She thinksit's an allergic reaction to the Prednisone and no longer wants to take it. Please advise with plan B. CRANE OPERATOR documented in this encounter Plan of Treatment Not on filedocumented as of this encounter Visit Diagnoses Not on filedocumented in this encounter Care Teams Clinical Trials Assistant Relationship Specialty Start Date End Date Silvana Velarde APRN, MANAGER PULMONARY PCP - General 11/27/17 12/29/[address] [place] [address] [place] [address] documented as of this encounter
--- OUTSIDE RECORDS SUMMARY | 2022-02-10 13:29 | XMS_ITS | Encounter Summary ---
:1970 Author Organization [facility] Address [address] [place] [address] Care Team Providers Name Role Phone Silvana Velarde APRN, KEEGAN Primary Care Provider [phone] Reason for Visit Reason Onset Date Comments BODY ACHES CAN'T SLEEP 02/28/2018 Encounter Details Date Type Department Care Team Description 02/28/2018 Telephone EphraimSilvana Fenton, BODY ACHES CAN'T SLEEP [address] KEEGAN HUNT Chuy Mcdaniel MD [address] [facility] [address] [phone] [place], [place] [address] Social History Tobacco Use Types Packs/Day Years Used Date Never Assessed Sex Assigned at Date Recorded Not on file documented as of this encounter Miscellaneous Notes Telephone Encounter - Lois Wilkinson LPN - 03/01/2018 8:24 AM CST She will see you on Sunday. DISPATCH SUPERVISOR Telephone Encounter - Silvana Velarde APRN, CNP - 02/28/2018 5:15 PM CITY DISPATCH SUPERVISOR The patient would need to be seen for narcotic medication. Marcell, Magnus DISPATCH SUPERVISOR Telephone Encounter - Leonie Chatterjee RN - 02/28/2018 4:02 PM CST Please advise. DISPATCH SUPERVISOR Telephone Encounter - Talya Martinez - 02/28/2018 12:43 PM CST Pt called and made an appt for Sunday03/05/18 for body aches. Pt is also having a hard time getting any sleep and is wondering if she can get a Rx of Tylenol with codeine to help her sleep until her appt. Send Rx to [facility]. Please return call to Pt to advise. DISPATCH SUPERVISOR documented in this encounter Plan of Treatment Not on filedocumented as of this encounter Visit Diagnoses Not on filedocumented in this encounter Care Teams Senior Insight Manager Relationship Specialty Start Date End Date Silvana Velarde APRN, SENIOR RESTAURANT MANAGER PCP - General 11/27/17 12/29/[address] [place], [place] [address] [address] documented as of this encounter
--- OUTSIDE RECORDS SUMMARY | 2022-02-10 13:29 | XMS_ITS | Encounter Summary ---
:1970 Author Organization [facility] Address [address] [place] [address] Care Team Providers Name Role Phone Silvana Velarde Silva HUNT, FOOD TECHNOLOGY TEACHER Primary Care Provider [phone] Encounter Details Date Type Department Care Team Description 03/05/2018 Lab Lsia Mcdaniel Polyarticular arthritis; [address] [...] Polyarticular Re sults for this RATE AM CONCRETE MIXER OPERATOR HELPER arthritis procedure are in Paresthesia of both the resu lts hands section. LYME DISEASE SEROLOGY Routine 03/05/2018 8:47 Polyarticular Re sults for this AM CONCRETE MIXER OPERATOR HELPER arthritis procedure are i n the results section. THYROID FUNCTION Routine 03/05/2018 8:47 Paresthesia of both R esults for this CASCADE AM CONCRETE MIXER OPERATOR HELPER hands procedure are i n the results section. CBC BRANCH OFFICE Routine 03/05/2018 8:47 Polyarticular Result s for this W/DIFF AM CONCRETE MIXER OPERATOR HELPER arthritis procedure are in Paresthesia of both the resu lts hands section. CYCLIC CITRULLINATED Routine 03/05/2018 8:47 Polyarticular Res ults for this PEPTIDE ANITBODY AM CONCRETE MIXER OPERATOR HELPER arthritis procedure a re in the results section. SEDIMENTATION RATE, Routine 03/05/2018 8:47 Polyarticular Resu lts for this AUTOMATED AM CONCRETE MIXER OPERATOR HELPER arthritis procedure are i n the results section. RHEUMATOID FACTOR Routine 03/05/2018 8:47 Polyarticular Result s for this AM CONCRETE MIXER OPERATOR HELPER arthritis procedure are i n the results section. C-REACTIVE PROTEIN Routine 03/05/2018 8:47 Polyarticular Resul ts for this AM CONCRETE MIXER OPERATOR HELPER arthritis procedure are i n the results section. BREN Routine 03/05/2018 8:47 Polyarticular Results for this AM CONCRETE MIXER OPERATOR HELPER arthritis procedure are i n the results section. URIC ACID Routine 03/05/2018 8:47 Polyarticular Results for this AM CONCRETE MIXER OPERATOR HELPER arthritis procedure are i n the results section. VITAMIN B12 Routine 03/05/2018 8:47 Paresthesia of both Resul ts for this AM CONCRETE MIXER OPERATOR HELPER hands procedure are i n the results section. BASIC METABOLIC PANEL Routine 03/05/2018 8:47 Polyarticular Re sults for this AM CONCRETE MIXER OPERATOR HELPER arthritis procedure are in Paresthesia of both the resu lts hands section. documented in this encounter Results Glomerular filtration rate (GFR) (03/05/2018 8:47 AM CONCRETE MIXER OPERATOR HELPER) P athologist Signature GFR >60 03/05/2018 [facility] 9:39 AM [facility] >60 03/05/2018 [facility] Venezuelan GFR 9:39 AM [facility] Comment: GFR calculated from serum creatinine v alue Chronic Kidney Disease less than 60 mL/m in/1.73 m2 Kidney Failure less than 15 mL/min/1.73 m2 Note: effective 09/05/06 IDMS-Traceable MDRD Study Equation used. Specimen Anatomical Collection Method Collection Time Receive d Time (Source) Location / / Volume Laterality 03/05/2018 8:47 AM 8 8:47 CONCRETE MIXER OPERATOR HELPER AM CONCRETE MIXER OPERATOR HELPER Silvana Velarde APRN, FOOD TECHNOLOGY TEACHER LAB BLOOD ORDERABLES Performing Organization Address City/State/ZIP Code Phon e Number [facility] [address] [place] [address] (ABNORMAL) CBC Branch Off w/Diff (03/05/2018 8:47 AM CONCRETE MIXER OPERATOR HELPER) Patholo gist Method Time Signature WBC 7.3 3.5 - 10.5 03/05/2018 [facility] K/uL 9:39 AM CONCRETE MIXER OPERATOR HELPER FALLS RBC 4.17 3.90 - 03/05/2018 [facility] 5.00 M/uL 9:39 AM CONCRETE MIXER OPERATOR HELPER [place]ALLS Hemoglobin 13.8 12.0 - 03/05/2018 [facility] 15.5 g/dL 9:39 AM CONCRETE MIXER OPERATOR HELPER [place]ALL[place] Hematocrit 39.5 35.0 - 03/05/2018 [facility] 44.0 % 9:39 AM CONCRETE MIXER OPERATOR HELPER [place]ALLS Platelets 272 150 - 450 03/05/2018 [facility] K/uL 9:39 AM CONCRETE MIXER OPERATOR HELPER FALLS MCV 94.7 81.6 - 03/05/2018 [facility] 98.3 fL 9:39 AM CONCRETE MIXER OPERATOR HELPER [place]ALLS MCH 33.1 (H) 26.0 - 03/05/2018 [facility] 32.0 pg 9:39 AM CONCRETE MIXER OPERATOR HELPER FALLS MCHC 34.9 32.0 - 03/05/2018 [facility] 36.0 g/dL 9:39 AM CONCRETE MIXER OPERATOR HELPER FALLS RDW 13.3 11.9 - 03/05/2018 [facility] 15.5 % 9:39 AM CONCRETE MIXER OPERATOR HELPER [place]ALLS Lymphocytes % 28.0 18.0 - 03/05/2018 [facility] [place] 45.0 % 9:39 AM CONCRETE MIXER OPERATOR HELPER FALLS Mid-size Cells 8.1 3.3 - 10.1 03/05/2018 [facility] % 9:39 AM CONCRETE MIXER OPERATOR HELPER FALLS Granulocytes/Adam 63.9 45.8 - 03/05/2018 [facility] GONZ[facility]Z trophils 73.7 % 9:39 AM CONCRETE MIXER OPERATOR HELPER FALLS Lymphocytes 2.0 0.9 - 2.9 03/05/2018 [facility] Absolute K/uL 9:39 AM CONCRETE MIXER OPERATOR HELPER FALLS MIDS Absolute 0.6 0.2 - 0.8 03/05/2018 [facility] K/uL 9:39 AM CONCRETE MIXER OPERATOR HELPER FALLS Granulocytes/Adam 4.7 2.1 - 8.7 03/05/2018 [facility] trophils K/uL 9:39 AM CONCRETE MIXER OPERATOR HELPER FALLS Absolute Specimen Anatomical Collection Method Collection Time Receive d Time (Source) Location / / Volume Laterality Blood (Blood, 03/05/2018 8:47 AM 03/05/20 18 8:47 Venous) CONCRETE MIXER OPERATOR HELPER AM CONCRETE MIXER OPERATOR HELPER Silvana Velarde APRN, FOOD TECHNOLOGY TEACHER LAB BLOOD ORDERABLES Performing Organization Address City/State/ZIP Code Phon e Number [facility] [place] [address] [place] [address] ESR-Sed rate (03/05/2018 8:47 AM CONCRETE MIXER OPERATOR HELPER) P athologist Signature Sed Rate 10 0 - 29 03/05/2018 [facility] mm/hr 1:42 PM CONCRETE MIXER OPERATOR [facility] Specimen Anatomical Collection Method Collection Time Receive d Time (Source) Location / / Volume Laterality Blood (Blood, 03/05/2018 8:47 AM 03/05/20 18 Venous) CONCRETE MIXER OPERATOR HELPER 12:17 PM CONCRETE MIXER OPERATOR HELPER Silvana Velarde APRN, CNP LAB BLOOD ORDERABLES Performing Organization Address [facility] Phon e Number [facility] [address] [place] [phone] C-reactive protein (03/05/2018 8:47 AM CONCRETE MIXER OPERATOR HELPER) athologist Signature CRP 6.7 0.0 - 9.9 03/05/2018 [facility] mg/L 1:42 PM CONCRETE MIXER OPERATOR [facility] Comment: . Specimen Anatomical Collection Method Collection Time Receive d Time (Source) Location / / Volume Laterality Blood (Blood, 03/05/2018 8:47 AM 03/05/20 18 Venous) CONCRETE MIXER OPERATOR HELPER 12:19 PM CONCRETE MIXER OPERATOR HELPER Silvana Velarde APRN, CNP LAB BLOOD ORDERABLES Performing Organization Address [facility] Phon e Number [facility] [address] [place] [address] Rheumatoid factor (03/05/2018 8:47 AM CONCRETE MIXER OPERATOR HELPER) athologist Signature Rheumatoid 6 1 - 11 03/05/2018 [facility] Factor IU/mL 1:25 PM [facility] Specimen Anatomical Collection Method Collection Time Receive d Time (Source) Location / / Volume Laterality Blood (Blood, 03/05/2018 8:47 AM 03/05/20 18 Venous) CONCRETE MIXER OPERATOR HELPER 12:19 PM CONCRETE MIXER OPERATOR HELPER Silvana Velarde APRN, CNP LAB BLOOD ORDERABLES Performing Organization Address [facility] Phon e Number [facility] [address] [place] [address] Lyme Disease Serology (03/05/2018 8:47 AM CONCRETE MIXER OPERATOR HELPER) [facility] Method Time Signature Lyme Disease Negative Negative 03/06/2018 [facility] Serology 1:00 PM CONCRETE MIXER OPERATOR HELPER LAB[facility] Comment: No evidence of antibodies to B. burgdorf darrion detected. False negative results may occur in rece ntly infected patients (<=2 weeks) due to low or undet ectable antibody levels to B. burgdorferi. If recent expo sure is suspected, a second sample should be collected and tested in 2-4 weeks. Test [facility]: [facility] [place] [id number] Specimen Anatomical Collection Method Collection Time Receive d Time (Source) Location / / Volume Laterality Blood (Blood, 03/05/2018 8:47 AM 03/05/20 18 1:31 Venous) CONCRETE MIXER OPERATOR HELPER PM CONCRETE MIXER OPERATOR HELPER Silvana Velarde APRN, CNP LAB BLOOD ORDERABLES Performing Organization Address City/State/ZIP Code Phon e Number [facility] see result attachment for specific address BREN (03/05/2018 8:47 AM CONCRETE MIXER OPERATOR HELPER) athologist Signature BREN 0.2 <=1.0 03/06/2018 [facility] (Negative) 2:01 PM CONCRETE MIXER OPERATOR HELPER LAB[facility] U Comment: Test [facility]formed by: [facility] [place] [address] Specimen Anatomical Collection Method Collection Time Receive d Time (Source) Location / / Volume Laterality Blood (Blood, 03/05/2018 8:47 AM 03/05/20 18 1:31 Venous) CONCRETE MIXER OPERATOR HELPER PM CONCRETE MIXER OPERATOR HELPER Silvana Velarde APRN, CNP LAB BLOOD ORDERABLES Performing Organization Address City/[facility]/ZIP Code Phon e Number [facility] see result attachment for specific address Cyclic citrul peptide antibody, IgG (03/05/2018 8:47 AM CONCRETE MIXER OPERATOR HELPER) athologist [facility] Cyclic <15.6 <20.0 03/06/2018 [facility] Citrullin (Negative) 2:01 PM CONCRETE MIXER OPERATOR HELPER LABORATORIES Peptide Ab U Comment: Test [facility]formed [facility]: [facility] [address] [place] [address] Specimen Anatomical Collection Method Collection Time Receive d Time (Source) Location / / Volume Laterality Blood (Blood, 03/05/2018 8:47 AM 03/05/20 18 1:31 Venous) CONCRETE MIXER OPERATOR HELPER PM CONCRETE MIXER OPERATOR HELPER Silvana Velarde APRN, CNP LAB BLOOD ORDERABLES Performing Organization Address City/State/ZIP Code Phon e Number [facility] see result attachment for specific address Vitamin B12 (03/05/2018 8:47 AM CONCRETE MIXER OPERATOR HELPER) athologist Signature Vitamin B-12 643 142 - 374 03/05/2018 [facility] pg/mL 2:23 PM CONCRETE MIXER OPERATOR [facility] Comment: The results from this [...] Blood (Blood, 03/05/2018 8:47 AM 03/05/20 Venous) CONCRETE MIXER OPERATOR HELPER 12:19 PM CONCRETE MIXER OPERATOR HELPER Silvana Velarde APRN, CNP LAB BLOOD ORDERABLES Performing Organization Address [facility]/ZIP Code Phon e Number [facility] [address] [place], [place] [id number] Thyroid Function Hayden (03/05/2018 8:47 AM CONCRETE MIXER OPERATOR HELPER) athologist Signature TSH, Sensitive 3.57 0.46 - 03/05/2018 [facility] 4.68 mIU/L 1:50 PM CONCRETE MIXER OPERATOR [facility] Comment: The results from this [...] Blood (Blood, 03/05/2018 8:47 AM 03/05/20 Venous) CONCRETE MIXER OPERATOR HELPER 12:19 PM CONCRETE MIXER OPERATOR HELPER Silvana Velarde APRN, CNP LAB BLOOD ORDERABLES Performing Organization Address City/[facility]/ZIP Code Phon e Number [facility] [address] [place] [address] (ABNORMAL) Uric acid (03/05/2018 8:47 AM CONCRETE MIXER OPERATOR HELPER) P athologist Signature Uric Acid 6.3 (H) 2.1 - 6.1 03/05/2018 [facility] mg/dL 2:13 PM [facility] Specimen Anatomical Collection Method Collection Time Receive d Time (Source) Location / / Volume Laterality Blood (Blood, 03/05/2018 8:47 AM 03/05/20 18 Venous) CONCRETE MIXER OPERATOR HELPER 12:17 PM CONCRETE MIXER OPERATOR HELPER Silvana Velarde APRN, FOOD TECHNOLOGY TEACHER LAB BLOOD ORDERABLES Performing Organization Address City/State/ZIP Code Phon e Number [facility] [address] [place] [phone] (ABNORMAL) Basic metabolic panel (03/05/2018 8:47 AM CONCRETE MIXER OPERATOR HELPER) athologist Signature Sodium 140 135 - 145 03/05/2018 [facility] mmol/L 9:39 AM CONCRETE MIXER OPERATOR HELPER FALLS Potassium 3.8 3.5 - 5.1 03/05/2018 [facility] mmol/L 9:39 AM CONCRETE MIXER OPERATOR HELPER FALLS Comment: . Chloride 103 98 - 107 mmol/L 03/05/2018 9:39 AM CONCRETE MIXER OPERATOR HELPER [facility] Comment: . CO2 26 22 - 29 mmol/L 03/05/2018 9:39 AM CONCRETE MIXER OPERATOR HELPER [facility] Comment: . Creatinine 0.8 0.4 - 1.2 mg/dL 03/05/2018 9:39 AM CONCRETE MIXER OPERATOR HELPER [facility] Comment: . BUN 18 5 - 25 mg/dL 03/05/2018 9:39 AM CONCRETE MIXER OPERATOR HELPER [facility] Comment: . Glucose 102 (H) 70 - 100 mg/dL 03/05/2018 9:39 AM CONCRETE MIXER OPERATOR HELPER [facility] Calcium, Total,S 9.8 8.4 - 10.2 mg/dL 03/05/2018 9:39 AM CONCRETE MIXER OPERATOR HELPER [facility] Comment: . Fasting? Yes 03/05/2018 8:55 AM CONCRETE MIXER OPERATOR HELPER [facility] Specimen Anatomical Collection Method Collection Time Receive d Time (Source) Location / / Volume Laterality Blood (Blood, 03/05/2018 8:47 AM 03/05/20 18 8:47 Venous) CONCRETE MIXER OPERATOR HELPER AM CONCRETE MIXER OPERATOR HELPER Silvana Velarde APRN, FOOD TECHNOLOGY TEACHER LAB BLOOD ORDERABLES Performing Organization Address City/State/ZIP Code Phon e Number [facility] LISA MCDANIEL [address] [place] [address] documented in this encounter Visit Diagnoses Diagnosis Polyarticular arthritis Unspecified polyarthropathy or polyarthr itis, site unspecified Paresthesia of both hands documented in this encounter Care Teams Corporate Buyer Relationship Specialty Start Date End Date Silvana Velarde APRN, FOOD TECHNOLOGY TEACHER PCP - General 11/27/17 12/29/[address] [place] [address] [place] [id number] documented as of this encounter
--- OUTSIDE RECORDS SUMMARY | 2022-02-10 13:29 | XMS_ITS | Encounter Summary ---
:1970 Author Organization [facility] Address [address] [place] [address] Care Team Providers Name Role Phone Silvana Velarde APRN, CNP Primary Care Provider [phone] Reason for Referral Consultation (Routine) - Closed Specialty Diagnoses / Procedures Referred By Contact Refer red To Contact Rheumatology Diagnoses Polyarticular arthritis Silvana Velarde, [place] - Referrals [facility] [address] [facility] [address] [place] [address] [place] [address] Fax: Referral ID Status Reason Start Date Expiration Date Visits Requ ested Visits Authorized [id number] Closed 03/11/2018 09/07/2018 1 1 Scheduling Instructions Please schedule at [place] in [place]. OR PATROL POLICE Encounter Details Date Type Department Care Team Description 03/11/2018 Orders Only [place] Silvana Velarde Polyarticular arthritis [address] M, KEEGAN HUNT (Primary Dx) [place], [place] 100 [facility] [address] [place] [address] Social History Tobacco Use Types Packs/Day Years [...] unspecified documented in this encounter Care Teams Internal Revenue Service Agent Relationship Specialty Start Date End Date Silvana Velarde, FINANCIAL SERVICE REP, ELECTRIC POWER LINE EXAMINER PCP - General 11/27/17 12/29/19 100 [facility] [place] [address] documented as of this encounter
--- OUTSIDE RECORDS SUMMARY | 2022-02-10 13:29 | XMS_ITS | Encounter Summary ---
:1970 Author Organization [facility] Address [address] [place] [address] Care Team Providers Name Role Phone Silvana Velarde APRN, CNP Primary Care Provider [phone] Reason for Visit Reason Comments Generalized Body Aches Encounter Details Date Type Department Care Team Description 03/05/2018 [place] Polyarticular arthritis (Adamaris robina Dx); [address] M, KEEGAN HUNT Paresthesia of both hands [place] K[place] 100 [facility] [address] [address] [place] [address] Social History Tobacco Use Types Packs/Day Years Used Date Current Every Day Smoker Smokeless Tobacco: Never Used Alcohol Use Standard Drinks/Week Comments Yes 0 (1 standard drink = 0.6 oz pure alcoho l) Sex Assigned at Date Recorded Not on file documented as of this encounter Last Filed Vital Signs Vital Sign Reading Time Taken Comments Blood Pressure 124/80 03/05/2018 8:03 AM SNOWMAKER Pulse 84 03/05/2018 8:03 AM SNOWMAKER Temperature 37.3 ??C (99.2 ??F) 03/05/2018 8:03 AM SNOWMAKER Respiratory Rate 18 03/05/2018 8:03 AM SNOWMAKER Oxygen Saturation 97% 03/05/2018 8:03 AM SNOWMAKER Inhaled Oxygen Concentration - - Weight 97 kg (213 lb 13.5 oz) 03/05/2018 8:03 AM SNOWMAKER Height 160.5 cm (5' 3.19) 03/05/2018 8:03 AM SNOWMAKER Body Mass Index 37.65 03/05/2018 8:03 AM SNOWMAKER documented in this encounter Patient Instructions Patient InstructionsChchuyita Velarde APRN, CNP - 03/05/2018 8:00 AM SNOWMAKER Will call the lab results Medrol Dose pack as directed, no ibuprofen when on the Medrol Dosepak, but can resume Ibuprofen whencompleted MAKER documented in this encounter Progress Notes Silvana [...] over the joints. 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 Silvana Velarde APRN, CLASSIFIED ADVERTISING SUPERVISOR MAKER documented in this encounter Plan of Treatment Not on filedocumented as of this encounter Results (ABNORMAL) Basic metabolic panel (03/05/2018 8:47 AM SNOWMAKER) P athologist Signature Sodium 140 135 - 145 03/05/2018 [facility] GON[place] mmol/L 9:39 AM SNOWMAKER [place] Potassium 3.8 3.5 - 5.1 03/05/2018 [facility] [place] mmol/L 9:39 AM SNOWMAKER [place] Comment: . Chloride 103 98 - 107 mmol/L 03/05/2018 9:39 AM SNOWMAKER [facility] LISA MCD[place] Comment: . CO2 26 22 - 29 mmol/L 03/05/2018 9:39 AM SNOWMAKER [facility] [place] Comment: . Creatinine 0.8 0.4 - 1.2 mg/dL 03/05/2018 9:39 AM SNOWMAKER C [place] Comment: . BUN 18 5 - 25 mg/dL 03/05/2018 9:39 AM SNOWMAKER C [place] Comment: . Glucose 102 (H) 70 - 100 mg/dL 03/05/2018 9:39 AM SNOWMAKER OM C [place] Calcium, Total,S 9.8 8.4 - 10.2 mg/dL 03/05/2018 9:39 AM SNOWMAKER [facility] [place] Comment: . Fasting? Yes 03/05/2018 8:55 AM SNOWMAKER [facility] CAN NON FALLS Specimen Anatomical Collection Method Collection Time Receive d Time (Source) Location / / Volume Laterality Blood (Blood, 03/05/2018 8:47 AM 03/05/20 8:47 Venous) SNOWMAKER AM SNOWMAKER Silvana Velarde APRN, CNP LAB BLOOD ORDERABLES Performing Organization Address City/[facility]/ZIP Code Phon e Number [facility] LISA MCDANIEL [address] [place] [address] (ABNORMAL) Uric acid (03/05/2018 8:47 AM SNOWMAKER) athologist Signature Uric Acid 6.3 (H) 2.1 - 6.1 03/05/2018 [facility] mg/dL 2:13 PM [facility] Specimen Anatomical Collection Method Collection Time Receive d Time (Source) Location / / Volume Laterality Blood (Blood, 03/05/2018 8:47 AM 03/05/20 Venous) SNOWMAKER 12:17 PM SNOWMAKER Silvana Velarde APRN, CNP LAB BLOOD ORDERABLES Performing Organization Address City/State/ZIP Code Phon e Number [facility] [address] [place] [address] Thyroid Function [place] (03/05/2018 8:47 AM SNOWMAKER) athologist Signature TSH, Sensitive 3.57 0.46 - 03/05/2018 [facility] 4.68 mIU/L 1:50 PM [facility] Comment: The results from this [...] Blood (Blood, 03/05/2018 8:47 AM 03/05/20 Venous) SNOWMAKER 12:19 PM SNOWMAKER Silvana Velarde APRN, CNP LAB BLOOD ORDERABLES Performing Organization Address City/[facility]/ZIP Code Phon e Number [facility] [address] [place] [address] Vitamin B12 (03/05/2018 8:47 AM SNOWMAKER) athologist Signature Vitamin B-12 670 335 - 615 03/05/2018 [facility] pg/mL 2:23 PM [facility] Comment: The results from this [...] Blood (Blood, 03/05/2018 8:47 AM 03/05/20 Venous) SNOWMAKER 12:19 PM SNOWMAKER Silvana Velarde APRN, CNP LAB BLOOD ORDERABLES Performing Organization Address [facility]/ZIP Code Phon e Number [facility] [address] [place] [address] Cyclic citrul peptide antibody, IgG (03/05/2018 8:47 AM SNOWMAKER) athologist Signature Cyclic <15.6 <20.0 03/06/2018 [facility] Citrullin (Negative) 2:01 PM [facility] Peptide Ab U Comment: Test Performed by: [facility] [address] [place] [id number] Specimen Anatomical Collection Method Collection Time Receive d Time (Source) Location / / Volume Laterality Blood (Blood, 03/05/2018 8:47 AM 03/05/20 1:31 Venous) SNOWMAKER PM SNOWMAKER Silvana Velarde APRN, CNP LAB BLOOD ORDERABLES Performing Organization Address City/[facility]/ZIP Code Phon e Number [facility] see result attachment for specific address BREN (03/05/2018 8:47 AM SNOWMAKER) athologist Signature BREN 0.2 <=1.0 03/06/2018 [facility] (Negative) 2:01 PM [facility] U Comment: Test Performed by: [facility] [address] [place] [address] Specimen Anatomical Collection Method Collection Time Receive d Time (Source) Location / / Volume Laterality Blood (Blood, 03/05/2018 8:47 AM 03/05/20 18 1:31 Venous) SNOWMAKER PM SNOWMAKER Silvana Velarde APRN, CNP LAB BLOOD ORDERABLES Performing Organization Address [facility] Code Phon e Number [facility] see result attachment for specific address Lyme Disease Serology (03/05/2018 8:47 AM SNOWMAKER) [facility] Method Time Signature Lyme Disease Negative Negative 03/06/2018 [facility] Serology 1:00 PM [facility] Comment: No evidence of antibodies to B. burgdorf darrion detected. False negative results may occur in rece ntly infected patients (<=2 weeks) due to low or undet ectable antibody levels to B. burgdorferi. If recent expo sure is suspected, a second sample should be collected and tested in 2-4 weeks. Test Performed by: [facility] [place] [address] Specimen Anatomical Collection Method Collection Time Receive d Time (Source) Location / / Volume Laterality Blood (Blood, 03/05/2018 8:47 AM 03/05/20 18 1:31 Venous) SNOWMAKER PM SNOWMAKER Silvana Velarde APRN, CNP LAB BLOOD ORDERABLES Performing Organization Address City/[facility]/ZIP Code Phon e Number [facility] [employer] [facility] see result attachment for specific address Rheumatoid factor (03/05/2018 8:47 AM SNOWMAKER) athologist Signature Rheumatoid 6 1 - 11 03/05/2018 [facility] Factor IU/mL 1:25 PM SNOWMAKER [facility] Specimen Anatomical Collection Method Collection Time Receive d Time (Source) Location / / Volume Laterality Blood (Blood, 03/05/2018 8:47 AM 03/05/20 18 Venous) SNOWMAKER 12:19 PM SNOWMAKER Silvana Velarde APRN, CNP LAB BLOOD ORDERABLES Performing Organization Address City/[facility]/ZIP Code Phon e Number [facility] [address] [place] [address] C-reactive protein (03/05/2018 8:47 AM SNOWMAKER) athologist Signature CRP 6.7 0.0 - 9.9 03/05/2018 [facility] mg/L 1:42 PM [facility] Comment: . Specimen Anatomical Collection Method Collection Time Receive d Time (Source) Location / / Volume Laterality Blood (Blood, 03/05/2018 8:47 AM 03/05/20 18 Venous) SNOWMAKER 12:19 PM SNOWMAKER Silvana Velarde APRN, CNP LAB BLOOD ORDERABLES Performing Organization Address City/[facility]/ZIP Code Phon e Number [facility] [address] [place] [address] ESR-Sed rate (03/05/2018 8:47 AM SNOWMAKER) athologist Signature Sed Rate 10 0 - 29 03/05/2018 [facility] mm/hr 1:42 PM [facility] Specimen Anatomical Collection Method Collection Time Receive d Time (Source) Location / / Volume Laterality Blood (Blood, 03/05/2018 8:47 AM 03/05/20 18 Venous) SNOWMAKER 12:17 PM SNOWMAKER Silvana Velarde APRN, CNP LAB BLOOD ORDERABLES Performing Organization Address City/[facility] Phon e Number [facility] [address] [place] [address] (ABNORMAL) CBC Branch Off w/Diff (03/05/2018 8:47 AM SNOWMAKER) [facility] gist Method Time Signature WBC 7.3 3.5 - 10.5 03/05/2018 [facility] [place] K/uL 9:39 AM SNOWMAKER [place] RBC 4.17 3.90 - 03/05/2018 [facility] 5.00 M/uL 9:39 AM SNOWMAKER [place] Hemoglobin 13.8 12.0 - 03/05/2018 [facility] [place] 15.5 g/dL 9:39 AM SNOWMAKER [place] Hematocrit 39.5 35.0 - 03/05/2018 [facility] 44.0 % 9:39 AM SNOWMAKER [place] Platelets 272 150 - 450 03/05/2018 [facility] K/uL 9:39 AM SNOWMAKER [place] MCV 94.7 81.6 - 03/05/2018 [facility] [place] 98.3 fL 9:39 AM SNOWMAKER [place] MCH 33.1 (H) 26.0 - 03/05/2018 [facility] 32.0 pg 9:39 AM SN[facility]MA[facility]ER [place] MCHC 34.9 32.0 - 03/05/2018 [facility] 36.0 g/dL 9:39 AM SNOWMAKER [place] RDW 13.3 11.9 - 03/05/2018 [facility] [place] 15.5 % 9:39 AM SNOWMAKER [place] Lymphocytes % 28.0 18.0 - 03/05/2018 [facility] 45.0 % 9:39 AM SNOWMAKER [place] Mid-size Cells 8.1 3.3 - 10.1 03/05/2018 [facility] % 9:39 AM SNOWMAKER [place] Granulocytes/Adam 63.9 45.8 - 03/05/2018 [facility] [place] trophils 73.7 % 9:39 AM SNOWMAKER [place] Lymphocytes 2.0 0.9 - 2.9 03/05/2018 [facility] Absolute K/uL 9:39 AM SNOWMAKER [place] MIDS Absolute 0.6 0.2 - 0.8 03/05/2018 [facility] K/uL 9:39 AM SNOWMAKER [place] Granulocytes/Adam 4.7 2.1 - 8.7 03/05/2018 [facility] trophils K/uL 9:39 AM SNOWMAKER [place] Absolute Specimen Anatomical Collection Method Collection Time Receive d Time (Source) Location / / Volume Laterality Blood (Blood, 03/05/2018 8:47 AM 03/05/20 18 8:47 Venous) SNOWMAKER AM SNOWMAKER Silvana Velarde APRN, CLASSIFIED ADVERTISING SUPERVISOR LAB BLOOD ORDERABLES Performing Organization Address City/State/ZIP Code Phon e Number [facility] [place] [address] [place] [id number] documented in this encounter Visit Diagnoses Diagnosis Polyarticular arthritis - Primary Unspecified polyarthropathy or polyarthr itis, site unspecified Paresthesia of both hands documented in this encounter Care Teams Department Store General Manager Relationship Specialty Start Date End Date Silvana Velarde APRN, CLASSIFIED ADVERTISING SUPERVISOR PCP - General 11/27/17 12/29/19 [address] [place] [address] documented as of this encounter
--- OUTSIDE RECORDS SUMMARY | 2022-02-10 13:29 | XMS_ITS | Encounter Summary ---
:1970 Author Organization [facility] Address [address] [place] [address] Care Team Providers Name Role Phone Silvana Velarde APRN, CNP Primary Care Provider [phone] Reason for Referral Consultation (Routine) - Canceled Specialty Diagnoses / Procedures Referred By Contact Refer red To Contact Rheumatology Diagnoses Polyarticular arthritis Silvana Velarde, [place] - Referrals KEEGAN HUNT [address] [facility] [address] [place] [address] [place] [address] Fax: Referral ID Status Reason Start Expiration Visits Visits Date Date Requested Authorized [id number] Canceled Specialty 09/07/2018 1 1 Services 8 Required Scheduling Instructions Please schedule the patient at [facility] in [place]. RIAL PROCESSOR Encounter Details Date Type Department Care Team Description 03/11/2018 Orders Only [place] Polyarticular arthritis [address] M, KEEGAN HUNT (Primary Dx) [place], [place] 100 [facility] [address] [place] [address] Social History Tobacco Use Types Packs/Day Years [...] unspecified documented in this encounter Care Teams Bee Worker Relationship Specialty Start Date End Date Silvana Velarde, FLOOR SCRUBBER, WATERPROOFER PCP - General 11/27/17 12/29/19 100 [facility] [place] [address] documented as of this encounter
--- NOTE | 2022-02-10 14:00 | CRLHL7_ITS ---
For Patients: As a result of the Century Cures Act, medical imaging exams and procedure reports are released immediately into your electronic medical record. You may view this report before your referring provider. If you have questions, please contact your health care provider. INDICATION: Pain, known Patel cyst TECHNIQUE: Ultrasound venous duplex lower right extremity. Compression venous exam was performed using tidwell-scale, color Doppler, and spectral Doppler imaging. COMPARISON: FINDINGS: Sonographic imaging demonstrates the right common femoral, deep femoral, superficial femoral, popliteal, posterior tibial and greater saphenous and the contralateral left common femoral veins to be fully compressible with normal color Doppler blood flow. 7.0 centimeter x 0.8 centimeter x 3.6 centimeter). IMPRESSION: Normal right lower extremity venous ultrasound, no sign of deep venous thrombosis. 7.0 centimeter right Patel`s cyst. This previously measured 4.7 centimeters on 01/29/2022. Dictated by Gal Siddiqi MD @ 02/10/2022 2:30:43 PM (Electronically Signed)
== END 2022-02-10 13:22 | disposition home or self-care (01) ==
LOC: US 13:22
PROVIDERS: PCP Nurse Practitioner Family; Visit Provider Nurse Practitioner Family
DX: M79.604 Pain in right leg (principal); M71.21 Synovial cyst of popliteal space [Baker], right knee
CPT/HCPCS: 93971

== ENCOUNTER 2022-02-16 09:56 | Outpatient (CLI) | payer OTHER, SELFPAY ==
--- OUTSIDE RECORDS SUMMARY | 2022-02-16 10:06 | XMS_ITS | Encounter Summary ---
:[address] [facility] Address [address] [place] [address] Care Team Providers Name Role Phone None, Pcp Primary Care Provider Unavailable Encounter Details Date Type Department Care Team Description 03/31/2020 Lab [place] Impaired fasting glucose; [address] [...] Elevated blood Results for this FILTRATION RATE GRAIN SHOVELER pressure reading procedur e are in the results section. HEMOGLOBIN A1C Routine 03/31/2020 8:35 AM Impaired fasting Res ults for this GRAIN SHOVELER glucose procedure are i n the results section. LIPID PANEL Routine 03/31/2020 8:35 AM Impaired fasting Resul ts for this GRAIN SHOVELER glucose procedure are i n the results section. BASIC METABOLIC Routine 03/31/2020 8:35 AM Elevated blood Resu lts for this PANEL GRAIN SHOVELER pressure reading procedure a re in the results section. documented in this encounter Results Glomerular filtration rate (GFR) (03/31/2020 8:35 AM GRAIN SHOVELER) P athologist Signature GFR >60 03/31/2020 [facility] 9:21 AM G[facility]IN SHOV[facility] >60 03/31/2020 [facility] Maltese GFR 9:21 AM GRAIN SHOV[facility]ER [facility] Comment: GFR calculated from serum creatinine v alue Chronic Kidney Disease less than 60 mL/m in/1.73 m2 Kidney Failure less than 15 mL/min/1.73 m2 Note: effective 09/05/06 IDMS-Traceable MDRD Study Equation used. Specimen Anatomical Collection Method Collection Time Receive d Time (Source) Location / / Volume Laterality 03/31/2020 8:35 AM 0 8:35 GRAIN SHOVELER AM GRAIN SHOVELER Evgeny Vann MD LAB BLOOD ORDERABLES Performing Organization Address City/[facility]/ZIP Code Phon e Number [facility] [address] [place] [address] (ABNORMAL) Basic metabolic panel (03/31/2020 8:35 AM GRAIN SHOVELER) P athologist Signature Sodium 140 135 - 145 03/31/2020 [facility] [place] mmol/L 9:21 AM [facility] [place] Potassium 4.3 3.5 - 5.1 03/31/2020 [facility] mmol/L 9:21 AM [facility] [place] Comment: . Chloride 101 98 - 107 mmol/L 03/31/2020 9:21 AM GRAIN SHOVELER [facility] [place] Comment: . CO2 28 22 - 29 mmol/L 03/31/2020 9:21 AM GRAIN SHOVELER [facility] [place] Comment: . Creatinine 0.7 0.4 - 1.2 mg/dL 03/31/2020 9:21 AM GRAIN SHOVELER [facility] [place] Comment: . BUN 13 5 - 25 mg/dL 03/31/2020 9:21 AM GRAIN SHOVELER C [place] Comment: . Glucose 103 (H) 70 - 100 mg/dL 03/31/2020 9:21 AM GRAIN SHOVELER [facility] [place] Calcium, Total,S 9.3 8.4 - 10.2 mg/dL 03/31/2020 9:21 AM GRAIN SHOVELER C [place] Comment: . Specimen Anatomical Collection Method Collection Time Receive d Time (Source) Location / / Volume Laterality Blood (Blood, 03/31/2020 8:35 AM 03/31/20 20 8:35 Venous) GRAIN SHOVELER AM GRAIN SHOVELER Evgeny Vann MD LAB BLOOD ORDERABLES Performing Organization Address City/[facility]/ZIP Code Phon e Number [facility] [place] [place] [address] [place] [address] Hemoglobin A1c (03/31/2020 8:35 AM GRAIN SHOVELER) P athologist Signature Hemoglobin A1C 5.4 4.0 - 5.6 03/31/2020 [facility] % A1C 1:51 PM [facility] Comment: Reference Range 4.0-5.6% is for [...] 03/31/2020 8:35 AM 03/31/20 20 1:09 Venous) GRAIN SHOVELER PM GRAIN SHOVELER Evgeny Vann MD LAB BLOOD ORDERABLES Performing Organization Address City/State/ZIP Code Phon e Number [facility] [address] [place] [address] (ABNORMAL) Lipid panel (03/31/2020 8:35 AM GRAIN SHOVELER) athologist Signature Cholesterol 187 0 - 199 03/31/2020 [facility] mg/dL 2:35 PM [facility] Comment: Recommended by National Cholesterol Education Program (ATP III) -------- Cholesterol Ranges -------- <200 ?Desirable 200-239 ? Borderline high >=240 ? High Triglycerides 48 0 - 149 mg/dL 03/31/2020 2:35 PM [facility] Comment: -------- TRIG Ranges -------- <150 ?Normal 150-199 ? Borderline high 200-499 ? High >=500 ? Very high HDL 68 40 - 250 mg/dL 03/31/2020 2:35 PM [facility] Comment: -------- HDL Ranges -------- <40 ?Low 40-59 ?Normal >=60 ? Optimal LDL Calculated 109 (H) 0 - 99 mg/dL 03/31/2020 2:35 PM GRAIN SHOVELER [facility] Comment: -------- LDL Ranges -------- <100 ? Optimal 100-129 ?Near optimal/above op timal 130-159 ?Borderline high 160-189 ?High >=190 ?Very high Fasting? Yes 03/31/2020 8:35 AM GRAIN SHOVELER [facility] Specimen Anatomical Collection Method Collection Time Receive d Time (Source) Location / / Volume Laterality Blood (Blood, 03/31/2020 8:35 AM 03/31/20 20 1:09 Venous) GRAIN SHOVELER PM GRAIN SHOVELER Evgeny Vann MD LAB BLOOD ORDERABLES Performing Organization Address City/State/ZIP Code Phon e Number [facility] [address] [place] [address] documented in this encounter Visit Diagnoses Diagnosis Impaired fasting glucose Elevated blood pressure reading Elevated blood pressure reading without diagnosis of hypertension documented in this encounter Care Teams Interface Control Officer Relationship Specialty Start Date End Date None, Pcp PCP - General Necktie Centralizing Machine Operator 03/30/20 12/19/20 [address] [place] [address] documented as of this encounter
--- NOTE | 2022-02-16 10:15 | MR_ITS ---
[address] [address] Phone:?[phone] Fax:?[phone] Referring Physician Information: Jovana Mclaughlin [address] [facility], [place] [address] Phone:?[phone] Fax:?[phone] Patient:Monica Grullon D.O.B:?1970 Sex:?Female Phone:?[phone] [facility] MRN:?[id number] Exam Date:?02/16/2022 ? EXAM: MRI of the RIGHT KNEE, without contrast CLINICAL HISTORY: Right knee pain. Evaluate for Patel's cyst and medial meniscal pathology. COMPARISONS: None available. TECHNICAL: MR sequences of the right knee: sagittals: PD, PDFS coronals: PD, STIR axials: PD, T2 FS CONTRAST: None SEDATION: None FINDINGS: Bones: No fracture, bone marrow contusion, or other suspicious bone marrow signal abnormality. 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 1.6 cm in craniocaudad dimension by 2.0 cm in transverse dimension area of grade II and III chondromalacia centered over the median patellar ridge and extending over the adjacent portions of the patellar facets. Retinacula: The medial and lateral retinacula are intact. Fat pads: The infrapatellar, quadriceps, and prefemoral fat pads are unremarkable. Knee joint: Effusion: Small right knee joint effusion. Popliteal cyst: Large popliteal cyst. Intra-articular bodies: None. Medial compartment: Medial meniscus: Full-thickness radial tear through the posterior root of the medial meniscus with 2-3 mm of medial meniscal extrusion. Cartilage: No discrete chondral defect is seen although there may be some mild chondral thinning. Lateral compartment: Lateral meniscus: Intact. Cartilage: Intact. Ligaments: Anterior cruciate ligament: Intact. Posterior cruciate ligament: Intact. Medial collateral ligament: Intact. Posterior oblique ligament: Intact. Fibular collateral ligament: Intact. Posterolateral corner: The distal biceps femoris tendon, iliotibial band, popliteus tendon, popliteus muscle, popliteofibular ligament, and arcuate ligament are intact. Posteromedial corner: The semimembranosus and pes anserine tendons are intact. Extensor mechanism: Patellar tendon: Intact. Quadriceps tendon: Intact. There is nonspecific soft tissue swelling anterior to the patella and patellar tendon. IMPRESSION: 1. Full-thickness radial tear through the posterior root of the medial meniscus. 2-3 mm of medial meniscal extrusion. 2. 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 1.6 x 2.0 cm area of grade II and III chondromalacia centered over the median patellar ridge and extending over the adjacent portions of the patellar facets. 3. Small right knee joint effusion. Large popliteal cyst. 4. No lateral meniscal tear or ligamentous injury of the right knee. RCB Electronically signed on 02/16/2022 12:54:00 PM by Gabino Callejas M.D.
== END 2022-02-16 09:57 | disposition home or self-care (01) ==
LOC: MRI 09:57
PROVIDERS: PCP Nurse Practitioner Family; Visit Provider Physician Assistant
DX: M25.561 Pain in right knee (principal); M71.20 Synovial cyst of popliteal space [Baker], unspecified knee; M23.221 Derangement of posterior horn of medial meniscus due to old tear or injury, right knee; M22.41 Chondromalacia patellae, right knee; M25.461 Effusion, right knee; M71.21 Synovial cyst of popliteal space [Baker], right knee
CPT/HCPCS: 73721

== ENCOUNTER 2022-03-23 06:53 | Day surgery (SDC) | payer OTHER, SELFPAY ==
[2022-03-23] VITALS (14 sets, daily range): BP systolic 84–158; BP diastolic 40–88; PULSE 53–85; RESP 16; TEMP 36.2–36.9; O2SAT 97–100; BMI 40.4
[2022-03-23] MEDS: LACTATED RINGERS 1000 ML 1,000 ML 100 ML IV (07:00)
--- NOTE | 2022-03-23 07:51 | SUR.PREOP ---
Patient presented a negative COVID test from home.
[2022-03-23] MEDS: SODIUM CHLORIDE 0.9 % (FLUSH) 10 ML SYRINGE IVF (08:05)
[2022-03-23] MEDS: CEFAZOLIN 2 GM INJ IVP (08:38)
--- NOTE | 2022-03-23 09:37 | P.ORPRC_ITS ---
Procedure Note Date of procedure: 03/23/22 Procedure: SURGEON: Allen Ferrer MD PRIZE COORDINATOR: KAMRYN Lopez PREOPERATIVE DIAGNOSIS: Right knee medial meniscus root tear POSTOPERATIVE DIAGNOSIS: Right knee medial meniscus root tear NAME OF OPERATION: Right knee arthroscopic medial meniscus root repair ANESTHESIA: Spinal ESTIMATED BLOOD LOSS: 0 mL COMPLICATIONS: None SPECIMENS: None DRAINS: None PREOPERATIVE ANTIBIOTICS: Ancef 2 gram INDICATIONS: The patient is a 51-year-old female with a history of right knee medial pain. MRI scan is consistent with a medial meniscus root tear. Despite appropriate nonoperative management, including activity modification, antiinflammatories, qihd-qim-luolany pain medication, bracing, physical therapy, and injections they continue to have pain and disability. Operative intervention was offered. The risks, benefits and expected outcomes were discussed in detail. These included but were not limited to: Infection, bleeding, injury to blood vessel or nerve, venous thromboembolism. All questions were answered to their satisfaction. PROCEDURE: Spinal anesthesia was administered. The patient was placed supine on the operating room table. The right lower extremity was prepped and draped in the usual sterile fashion. The limb was exsanguinated with the Narendra bandage. The pneumatic tourniquet was inflated to 300 mmHg. A standard anterolateral portal was established. The arthroscope was introduced. The working portal was established anteromedially. Diagnostic arthroscopy was performed with findings as follows: The suprapatellar pouch is normal. Articular surface on the patella is normal. Articular surface on the trochlea is normal. The medial gutter is normal. The medial compartment shows diffuse grade 2/3 change on the medial femoral condyle, grade 2 change on the medial tibial plateau. The medial meniscus has a radial tear, just off the posterior tibial attachment from the leading edge, to the capsule, detaching it from the tibia. The notch shows the ACL to be intact. The lateral compartment shows normal articular cartilage on the lateral femoral condyle and lateral tibial plateau. The lateral meniscus is normal. The lateral gutter is normal. The tear site was debrided with shaver. Unstable chondral flaps on the medial femoral condyle were debrided with a shaver. He The knee scorpion was used to pass a fiber link x 2 in the posterior horn of the medial meniscus. The tibial drill guide was used over the footprint of the root. A longitudinal incision over the anteromedial face of the tibia was placed. The flip cutter was drilled into the footprint. The flip cutter was flipped and back cut 5 mm. It was removed and exchanged for a fiber stick. The fiber stick was brought out the anteromedial portal and was used to shuttle both of the fiber link luggage tag sutures on the posterior horn out the anteromedial tibia. We then tensioned the sutures and fixed them to the tibia with a SwiveLock anchor. This provided an excellent repair of the posterior tibial attachment of the medial meniscus to its anatomic footprint. The power pick was used to microfracture the notch both medially and laterally. Arthroscopic instruments were removed, the portal sites were Steri-Stripped closed, the incision over the tibia was closed with 3-0 Vicryl and 4-0 Monocryl, the knee was infiltrated with 30 mL of 0.25% Marcaine without epinephrine. A dry dressing was applied, the tourniquet was released. Sponge and needle counts were correct x 2. The patient tolerated the procedure well. There were no apparent complications. They were carefully transferred to the hospital bed and taken to the postanesthesia care unit in satisfactory condition. PLAN: The patient will be discharged to home. They may weightbear as tolerates, using pain as her guide. Range of motion will be allowed from 0-90 degrees x 2 weeks then unrestricted range of motion. They will follow up in 2 weeks for a wound check.
--- NOTE | 2022-03-23 09:51 | W.ANESCHARGE ---
Anesthesia Charges Start Date/Time Anesthesia Start Date: 03/23/22 Anesthesia Start Time: 08:26 Stop Date/Time Anesthesia Stop Date: 03/23/22 Anesthesia Stop Time: 09:49 Summary Emergency: No
--- NOTE | 2022-03-23 09:56 | W.PM.NB ---
Nerve Block Nerve Block Time Seen by Provider: 09:38 Date Seen: 03/23/22 Type of block requested by surgeon for post-operative analgesia: geniculars Side: right Time out performed: Yes Verification of patient name: Yes Verification of date of : Yes Site marking: site marked Name of person performing procedure: DERICK allison Continuous monitoring Was continuous monitoring of O2 sat, B/P, algorithm design engineer, recorded every 15 minutes?: Yes Procedure Checklist: sterile prep, needles and gloves Ultrasound guided. Images saved: No Medications given in 5ml increments after negative aspiration: Ropivicaine %: 0.5 mL: 12 Needle gauge: 25 Patient tolerated procedure well: Yes Block Charges Block Charge (with Pro Fee): Genicular Nerve Block Use of Ultrasound Machine for Block: No
[2022-03-23] MEDS: PHENYLEPHRINE 100 MCG/ML SYRINGE IVP (09:58)
--- NOTE | 2022-03-23 10:56 | W.ANESCHARGE ---
Anesthesia Charges Start Date/Time Anesthesia Start Date: 03/23/22 Anesthesia Start Time: 08:26 Stop Date/Time Anesthesia Stop Date: 03/23/22 Anesthesia Stop Time: 09:49 Summary Emergency: No
== END 2022-03-23 11:27 | disposition home or self-care (01) ==
PROVIDERS: PCP Nurse Practitioner Family; Visit Provider Orthopaedic Surgery
PROC: (CPT 29882; principal; 2022-03-23 08:15)
DX: S83.241A Other tear of medial meniscus, current injury, right knee, initial encounter (principal); M25.561 Pain in right knee
CPT/HCPCS: 29882; 01400; 64454; C1713; J0690; J2250; J2370; J2400; J2704; J2795; J3010; J7120

== ENCOUNTER 2022-04-10 11:46 | Outpatient (CLI) | payer OTHER, SELFPAY | END 2022-04-10 11:47 | disposition home or self-care (01) | LOC: RAD 11:47 | PROVIDERS: PCP Nurse Practitioner Family; Visit Provider Nurse Practitioner Family | DX: R01.1 Cardiac murmur, unspecified (principal) | CPT/HCPCS: 93306 ==

== ENCOUNTER 2023-02-23 08:47 | Outpatient (CLI) | payer BC, SELFPAY ==
--- NOTE | 2023-02-23 09:15 | MR_ITS ---
[facility] [address] [facility] [address] Phone:?[phone] Fax:?[phone] Referring Physician Information: Mila Rosenberg [address] [facility] [address] Phone:?[phone] Fax:?[phone] Patient:Monica Grullon D.O.B:?1970 Sex:?Female Phone:?[phone] [facility] MRN:?[id number] Exam Date:?02/23/2023 EXAM: MRI of the LEFT KNEE, without contrast CLINICAL HISTORY: Left knee pain. Concern for internal derangement. COMPARISONS: Plain radiographs 10/26/2022. TECHNICAL: MR sequences of the left knee: sagittals: PD, PDFS coronals: PD, STIR axials: PD, T2 FS CONTRAST: None SEDATION: None FINDINGS: Bones: No fracture or destructive osseous lesion is seen. Patellofemoral joint: Cartilage: There is a 7 x 7 mm area of grade IV chondromalacia over the most inferior portion of the medial femoral trochlea with mild subjacent subchondral cystic change and central osteophytosis. There is diffuse grade I chondromalacia over the inferior half of the patella. Retinacula: The medial and lateral retinacula are intact. Fat pads: The infrapatellar, quadriceps, and prefemoral fat pads are unremarkable. Knee joint: Effusion: Moderate left knee joint effusion. Popliteal cyst: None. Intra-articular bodies: None. Posteromedial corner: The semimembranosus and pes anserine tendons are intact. Medial compartment: Medial meniscus: Diminution and irregularity of the body and posterior horn of the medial meniscus are findings that may reflect surgical changes status post partial medial meniscectomy. The degree of diminution and irregularity suggest recurrent complex tearing from the body through posterior horn of the medial meniscus, and there is currently marked peripheral extrusion of the body of the medial meniscus. Correlate with surgical history and any available previous MRI of the left knee. Cartilage: There is diffuse full-thickness chondral loss over most of the weightbearing portion of the medial femoral condyle and peripheral portion of the medial tibial plateau with associated subchondral edema-like signal greatest involving the peripheral portion of the medial tibial plateau. Lateral compartment: Lateral meniscus: Intact. Cartilage: Intact. Ligaments: Anterior cruciate ligament: Intact. Posterior cruciate ligament: Intact. Medial collateral ligament: Intact. Posterior oblique ligament: Intact. Fibular collateral ligament: Intact. Posterolateral corner: The distal biceps femoris tendon, iliotibial band, popliteus tendon, popliteus muscle, popliteofibular ligament, and arcuate ligament are intact. Extensor mechanism: Patellar tendon: Intact. Quadriceps tendon: Intact. IMPRESSION: 1. Diminution and irregularity of the body and posterior horn of the medial meniscus are findings that may reflect surgical changes status post partial medial meniscectomy. The degree of diminution and irregularity suggest recurrent complex tearing from the body through posterior horn of the medial meniscus, and there is currently marked peripheral extrusion of the body of the medial meniscus. Correlate with surgical history and any available previous MRI of the left knee. 2. Diffuse full-thickness chondral loss over most of the weightbearing portion of the medial femoral condyle and peripheral portion of the medial tibial plateau with associated subchondral edema-like signal greatest involving the peripheral portion of the medial tibial plateau. 3. 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 4. Moderate left knee joint effusion. 5. No lateral meniscal or ligamentous pathology of the left knee. RCB Electronically signed on 02/26/2023 6:51:00 AM by Gabino Callejas M.D.
== END 2023-02-23 08:48 | disposition home or self-care (01) ==
LOC: MRI 08:48
PROVIDERS: PCP Nurse Practitioner Family; Visit Provider Nurse Practitioner Family
DX: M25.562 Pain in left knee (principal); S83.232A Complex tear of medial meniscus, current injury, left knee, initial encounter; M22.42 Chondromalacia patellae, left knee; M25.462 Effusion, left knee
CPT/HCPCS: 73721

== ENCOUNTER 2023-03-02 10:38 | Outpatient (CLI) | payer BC, SELFPAY | END 2023-03-02 10:39 | disposition home or self-care (01) | PROVIDERS: PCP Nurse Practitioner Family; Visit Provider Nurse Practitioner Family | DX: Z01.818 Encounter for other preprocedural examination (principal); I10 Essential (primary) hypertension; M86.9 Osteomyelitis, unspecified; M17.12 Unilateral primary osteoarthritis, left knee | CPT/HCPCS: 80053; 85025 ==

== ENCOUNTER 2023-03-08 08:09 | Outpatient (RCR) | payer BC, SELFPAY | END 2023-07-06 23:59 | disposition home or self-care (01) | PROVIDERS: PCP Nurse Practitioner Family; Visit Provider Orthopaedic Surgery | DX: M17.12 Unilateral primary osteoarthritis, left knee (principal); Z96.652 Presence of left artificial knee joint; M25.562 Pain in left knee; R29.898 Other symptoms and signs involving the musculoskeletal system; Z51.89 Encounter for other specified aftercare | CPT/HCPCS: 97110; 97161 ==

== ENCOUNTER 2023-03-12 06:14 | Day surgery (SDC) | payer BC, SELFPAY ==
[2023-03-12] VITALS (20 sets, daily range): BP systolic 90–165; BP diastolic 52–112; PULSE 47–77; RESP 11–16; TEMP 36.7–36.8; O2SAT 94–98; BMI 42.5
[2023-03-12] MEDS: ACETAMINOPHEN 500 MG TABLET 1000 MG PO (06:45)
[2023-03-12] MEDS: LACTATED RINGERS 1000 ML 1,000 ML 100 ML IV ×2 (06:45→08:07)
[2023-03-12] MEDS: CELECOXIB 200 MG CAPSULE PO (06:45)
[2023-03-12] MEDS: SODIUM CHLORIDE 0.9 % (FLUSH) 10 ML SYRINGE IVF (06:54)
--- NOTE | 2023-03-12 07:10 | SUR.PREOP ---
TIME?OUT:?0707 PT/RN/MDA?VERIFICATION?OF?SURGICAL?SITE,?PROCEDURE,?AND?CONSENT OBTAINED?PRIOR?TO?INVASIVE?PROCEDURE. All in agreement.
[2023-03-12] MEDS: CEFAZOLIN 2 GM INJ IVP (07:37)
[2023-03-12] MEDS: TRANEXAMIC ACID 100 MG/ML INJ 1000 MG IV (07:41)
--- NOTE | 2023-03-12 08:59 | CRLHL7_ITS ---
For Patients: As a result of the Cures Act, medical imaging exams and procedure reports are released immediately into your electronic medical record. You may view this report before your referring provider. If you have questions, please contact your health care provider. INDICATION: Post operative left total knee arthroplasty TECHNIQUE: Knee radiograph 2 views left COMPARISON: None FINDINGS: Bone: No acute fractures or aggressive bone lesions are identified. Joint: The patient is status post a total knee arthroplasty with patellar resurfacing. No significant knee effusion is seen. Soft tissue: Anterior subcutaneous gas and joint gas are present from recent surgery. No radiopaque foreign bodies are seen. IMPRESSION: 1. There is an unremarkable postoperative appearance of the knee arthroplasty. Dictated by: Ang Garay MD @ 03/12/2023 16:31:50 (Electronically Signed)
--- NOTE | 2023-03-12 09:05 | P.ORPRC_ITS ---
Procedure Note Date of procedure: 03/12/23 Procedure: PREOPERATIVE DIAGNOSIS: Left knee osteoarthritis POSTOPERATIVE DIAGNOSIS: Left knee osteoarthritis NAME OF OPERATION: Left total knee arthroplasty SURGEON: Allen Ferrer MD CASH REGISTER MECHANIC: KAMRYN oLpez ANESTHESIA: Spinal ESTIMATED BLOOD LOSS: 0 mL COMPLICATIONS: None SPECIMENS: None DRAINS: None PREOPERATIVE ANTIBIOTICS: Ancef 2 grams, antibiotic impregnated cement IMPLANTS: 1. J&J Attune revision CRS # 5 posterior stabilized femur, 14 mm x 50 mm cemented stem 2. #4 fixed-bearing revision CRS tibia, 14 mm x 50 mm cemented stem 3. #5 posterior stabilized, 5 mm fixed-bearing polyethylene 4. 35 patella INDICATIONS: The patient is a 52-year-old with a longstanding history of severe, unrelenting left knee pain secondary to end-stage (grade IV) left knee osteoarthritis. Despite appropriate nonoperative management, including activity modification, anti-inflammatories, exyz-mam-pnthuyo pain medication, bracing, physical therapy, and injections they continue to have pain and disability. Operative intervention was offered. The risks, benefits and expected outcomes were discussed in detail. These included but were not limited to: Infection, bleeding, injury to blood vessel or nerve, venous thromboembolism. All questions were answered to their satisfaction. Use of an university administrative assistant was necessary throughout the case for patient positioning and safety, soft tissue retraction, and closure. A modifier 22 should be added to this case. The patient's weight of 109 kg with a BMI of 42.6 kg/meter squared made the dissection more difficult. Additionally, because of these factors we elected to place cemented stems on both sides of the joint to reduce the risk of aseptic loosening. This nearly doubled the time typically required to complete the case. PROCEDURE: Spinal anesthesia was administered. The patient was placed supine on the operating table. The university administrative assistant made sure the patient was positioned appropriately. The lower extremity was prepped and draped in the usual sterile fashion. The limb was exsanguinated with the Narendra bandage. The pneumatic tourniquet was inflated to 300 mmHg. A standard anterior incision was made with the knee in flexion. Subcutaneous dissection was sharply taken through fascial layer #1. Full-thickness medial and lateral flaps were elevated. The university administrative assistant retracted the soft tissues and protected them throughout the case. A standard medial parapatellar approach was made. The patella was everted. The infrapatellar fat pad was preserved. The menisci and cruciate ligaments were sharply d?brided. Marginal osteophytes were d?brided with the rongeur. The drill was used to penetrate the femoral canal. The canal was aspirated and irrigated with pulse lavage. The intramedullary femoral guide was placed for a 5-degree valgus cut, removing 10 mm off the distal femur. The saw was used to make the cut. Whitesides line and the trans epicondylar axis were marked. The femoral sizing guide was pinned onto the distal femur. Three degrees of external rotation nicely parallels the transepicondylar axis. Pins were placed for posterior referencing. The four-in-one cutting guide was pinned onto the distal femur. The anterior, posterior, and chamfer cuts were made. The university administrative assistant protected the collateral ligaments. The revision femoral trial was placed. The box cuts were made. The drill x2 were used. The stemmed, boxed trial was placed and was an excellent fit. Attention was then turned to the proximal tibia. The extramedullary tibial guide was placed for a neutral varus/valgus cut with 5 degrees of posterior slope, removing 2 mm based off the medial tibial surface. The university administrative assistant protected the collateral ligaments and the neurovascular bundle. The saw was used to make the cut. Trial components were placed. The knee was nicely balanced in both flexion and extension. The trial components were removed. The tray was placed in appropriate rotation, parallel to our tibial cutting pins. It was pinned by the university administrative assistant and the drill x2 was used. The stemmed tibial trial was placed. The punch was used. The tray was removed. The punch was used again. Attention was then turned to the patella. [place] patellar thickness was 22.5 mm. The lobster claw resection guide was used with the 9.5 mm rhett. The saw was used to make the cut. Drill holes were made by the university administrative assistant. The trial was placed and was an excellent fit. Cancellous surfaces were irrigated with pulse lavage and thoroughly dried by the university administrative assistant. We cemented the tibial component, then the femoral component. We impacted the 5 mm polyethylene onto the tibial tray. The knee was brought into full extension. We then cemented the patellar component. Excessive cement was removed. The cement was allowed to harden. The knee was taken through a range of motion and was found to be nicely balanced in both flexion and extension. The patella tracks centrally. The university administrative assistant did a three minute dilute Betadine solution soak. The university administrative assistant irrigated the wound with 3 liters of normal saline via pulse lavage. The university administrative assistant reapproximated the extensor mechanism with #1 Vicryl in an interrupted [id number] fashion. The university administrative assistant then ran the extensor mechanism with a #1 PDO Stratafix. The university administrative assistant closed the subcutaneous tissues with a 3-0 Stratafix and the skin with a running 3-0 Stratafix in a subcuticular fashion. Glue was used to seal the skin. The university administrative assistant placed a dry dressing, ERIN stocking, and Polar Care. Sponge and needle counts were correct x2. The patient tolerated the procedure well. There were no apparent complications. They were carefully transferred to the hospital bed and taken to the postanesthesia care unit in satisfactory condition. PLAN: The patient will be mobilized with physical therapy. Aspirin will be used for DVT prophylaxis. They will be discharged home today, if medically appropriate.
--- NOTE | 2023-03-12 09:38 | W.ANESCHARGE ---
Anesthesia Charges Start Date/Time Anesthesia Start Date: 03/12/23 Anesthesia Start Time: 07:27 Stop Date/Time Anesthesia Stop Date: 03/12/23 Anesthesia Stop Time: 09:39
--- NOTE | 2023-03-12 09:48 | W.ANESCHARGE ---
Anesthesia Charges Start Date/Time Anesthesia Start Date: 03/12/23 Anesthesia Start Time: 07:27 Stop Date/Time Anesthesia Stop Date: 03/12/23 Anesthesia Stop Time: 09:39
--- NOTE | 2023-03-12 09:49 | P.NB_ITS ---
Nerve Block Nerve Block Time Seen by Provider: 07:13 Date Seen: 03/12/23 Type of block requested by surgeon for post-operative analgesia: adductor canal Side: left Time out performed: Yes Verification of patient name: Yes Verification of date of : Yes Site marking: site marked Name of person performing procedure: Aram Continuous monitoring Was continuous monitoring of O2 sat, B/P, business support administrator, recorded every 15 minutes?: Yes Procedure Checklist: sterile prep, needles and gloves Ultrasound guided. Images saved: Yes Medications given in 5ml increments after negative aspiration: Ropivicaine %: 0.5 mL: 20 Needle gauge: 20 Decadron (mg): 10 Precedex (mcg): 25 Patient tolerated procedure well: Yes Additional comments: Needle noted adjacent to nerve Block Charges Block Charge (with Pro Fee): Femoral Nerve Use of Ultrasound Machine for Block: Yes- US Guidance/pain block
--- NOTE | 2023-03-12 09:50 | P.NB_ITS ---
Nerve Block Nerve Block Time Seen by Provider: 07:13 Date Seen: 03/12/23 Type of block requested by surgeon for post-operative analgesia: geniculars Side: left Time out performed: Yes Verification of patient name: Yes Verification of date of : Yes Site marking: site marked Name of person performing procedure: Aram Continuous monitoring Was continuous monitoring of O2 sat, B/P, personnel monitor, recorded every 15 minutes?: Yes Procedure Checklist: sterile prep, needles and gloves Medications given in 5ml increments after negative aspiration: Ropivicaine %: 0.5 mL: 9 Needle gauge: 25 Patient tolerated procedure well: Yes Block Charges Block Charge (with Pro Fee): Genicular Nerve Block Use of Ultrasound Machine for Block: No
--- NOTE | 2023-03-12 13:11 | SUR.PHASEII ---
pt up to bathroom via wheelchair. Ambulated 2 steps in room, pt reports legs feeling tingly still.
--- NOTE | 2023-03-12 13:25 | SUR.PHASEII ---
pt voided, states she feels she emptied her bladder. Pt states she feels her legs is still waking up able to bear weight on left leg.
== END 2023-03-12 14:54 | disposition home or self-care (01) ==
PROVIDERS: PCP Nurse Practitioner Family; Visit Provider Orthopaedic Surgery
PROC: (CPT 27447; principal; 2023-03-12 07:30)
DX: M17.12 Unilateral primary osteoarthritis, left knee (principal); G89.18 Other acute postprocedural pain; I10 Essential (primary) hypertension
CPT/HCPCS: 27447; 01402; 64447; 64454; 73560; 76942; 97110; 97116; 97161; 97530; A9270; C1776; J0690; J1100; J2250; J2405; J2704; J2795; J7120

== ENCOUNTER 2023-04-13 09:46 | Outpatient (CLI) | payer BC, SELFPAY ==
--- NOTE | 2023-04-13 10:15 | CRLHL7_ITS ---
For Patients: As a result of the Century Cures Act, medical imaging exams and procedure reports are released immediately into your electronic medical record. You may view this report before your referring provider. If you have questions, please contact your health care provider. BILATERAL SCREENING MAMMOGRAM WITH COMPUTER-AIDED DETECTION AND TOMOSYNTHESIS TECHNIQUE: CC and MLO views were obtained. These mammographic images have been obtained using full-field digital technique. These mammographic images were interpreted with the benefit of computer-aided detection. Breast Tomosynthesis was used in this interpretation. COMPARISON FILM: 08/10/20. FINDINGS: There are scattered areas of fibroglandular density IMPRESSION: There is no radiographic evidence for malignancy. ASSESSMENT: BI-RADS Category 1: Negative RECOMMENDATION: Routine screening mammogram in 1 year. A lay language report of this examination will be provided to the patient. Gal Hernandez M.D. Diagnostic Radiologist [email or web address] SO/Dictated by: Gal Hernandez MD @ 04/17/2023 8:18:00 AM (Electronically Signed)
== END 2023-04-13 09:47 | disposition home or self-care (01) ==
LOC: MAMMO 09:48
PROVIDERS: PCP Nurse Practitioner Family; Visit Provider Nurse Practitioner Family
DX: Z12.31 Encounter for screening mammogram for malignant neoplasm of breast (principal)
CPT/HCPCS: 77063; 77067

== ENCOUNTER 2023-10-15 09:25 | Outpatient (CLI) | payer BC, SELFPAY ==
--- OUTSIDE RECORDS SUMMARY | 2023-10-15 09:38 | XMS_ITS | Clinical Summary ---
Author Organization [facility] Address [address] [place] [id number] Care Team Providers Care Microscopist Name Role Phone Silvana Velarde Silva SENIOR COMPLIANCE ANALYST, STUDY HALL SUPERVISOR Primary Care Provi jaylon Allergies Active Allergy Reactions Criticality Noted Date Comments Meperidine Demeral Oxycodone-Acetaminophen Medications No known medications Active Problems Problem Noted Date Diagnosed Date Chronic osteomyelitis with d raining sinus, right ankle and foot 02/21/2022 Calcific Achilles tendinitis of left lower extre mity 02/21/2022 Incisional infection 02/21/2022 Tobacco use 03/30/2020 Impaired fasting glucose 03/30/2020 Bilateral carpal tunnel syndrome 03/30/2020 Elevated blood pressure reading 03/30/2020 Flat foot 03/30/2020 Immunizations Name Administration Dates Next Due COVID-19, mRNA, LNP-S, PF, 3 0mcg/0.3mL dose Pfizer 08/13/2020,07/23/2020 Hep B, Unspecified 03/22/1995,09/27/1994, 995 Hepatitis B 03/22/1995,09/27/1994,08/23/1994 Influenza 6mo-64yrs Quad Pre servative Free IM 02/17/1997 Influenza TIV (IM) 02/17/1997 Influenza, Unspecified 02/17/1997 MMR 08/23/1994 Measles 07/22/1969 TD Preservative Free 08/23/1994 Td 08/23/1994 Td, Unspecified 08/23/1994 Tdap 03/06/2014,03/06/2012 Family History Medical History Relation Comments Anxiety [...] Types Packs/Day Years Used Date Smoking Tobacco: Former Cigarettes 1 27 0 06/21/1993 - 06/21/2020 Smokeless Tobacco: Never Tobacco Cessation:Counseling Given: Not Answered Alcohol Use Standard Drinks/Week Comments Yes 0 (1 standard drink = 0.6 oz pur e alcohol) PHQ-2 Answer Date Recorded PHQ-9 Total Score 0 07/06/2022 Sex and Gender Information Value Date Recorded Sex Assigned at Not on file Gender Identity Not on file Sexual Orientation Not on file Last Filed Vital Signs Vital Sign Reading Time Taken Comments Blood Pressure 138/80 07/06/2022 2:35 PM CDT Pulse 80 07/06/2022 2:02 PM CDT Temperature 35.7 ??C (96.3 ??F) 07/06/2022 2:02 PM CD T Respiratory Rate 18 07/06/2022 2:02 PM CDT Oxygen Saturation 96% 07/06/2022 2:02 PM CDT Inhaled Oxygen Concentration - - Weight 106 kg (233 lb) 07/06/2022 2:02 PM CDT Height 159.5 cm (5' 2.8) 07/06/2022 2:02 PM CDT Body Mass Index 41.54 07/06/2022 2:02 PM CDT Plan of Treatment Health Maintenance Due Date Last Done Comments CT Colonography 1968 Colonoscopy 1968 Colorectal Cancer Screening 1968 FIT-DNA 1968 Sigmoidoscopy 1968 iFOBT 1968 Zoster Vaccines (1 of 2) 2018 Mammogram 08/10/2021 08/10/2020 COVID-19 Vaccine ( season) 2022 08/13/2020, 07/23/2020 Influenza Vaccine (Season Ended) 2023 02/17/1997, 02/17/1997, 02/17/1997 DTaP,Tdap,and Td Vaccines (4 - Td or Tdap) 02/03/2033 02/03/2023, 03/06/2014, 03/06/2012, Additional history exists HPV Vaccines Aged Out No longer eligi ble based on patient's age to complete this topic Pap Smear Discontinued Pneumococcal Vaccine: Pediatrics (0 to 5 Years) and At-Risk Patients (6 to 64 Years) Aged Out No longer eligible based on patient's age to complete this topic Care Teams Microscopist Relationship Specialty Start Date End Date Silvana Velarde, SENIOR COMPLIANCE ANALYST, STUDY HALL SUPERVISOR [address] [place] [address] PCP - General Family Medicine 09/19/22
--- OUTSIDE RECORDS SUMMARY | 2023-10-15 09:38 | XMS_ITS | Clinical Summary ---
Author Organization [facility] Address [address] [place] [address] Care Team Providers Care Data Modeler Name Role Phone Elsewhere, Pcp Primary Care Provider Unavailabl e Source Comments Patient records contain information from all sites at [facility]. For routine questions regarding patient records, call [phone] during business hours, M-F 8:00 AM - 5:00 PM Central Time. Record requests for emergency care only can be directed to [phone] at any time.[facility] Allergies Active Allergy Reactions Criticality Noted Date Comments Meperidine (Pf) Nausea Only 04/30/2012 Demerol HCL Hydrocodone-Acetaminophen GI intolerance 2012 Meperidine Other (see comments) Oxycodone-Acetaminophen Other (see comments) Medications Medication Sig Dispensed Refills Start Date End Date Status IBUPROFEN ORAL Take by mouth as needed. 10/06/2010 Active Active Problems No known active problems Immunizations Name Administration Dates Next Due HepB, Unspecified 03/22/1995,09/27/1994,08/23/18 95 Influenza, Seasonal, Injectable 02/17/1997 MMR 08/23/1994 Measles 07/22/1969 Td, (Adult) Unspecified 08/23/1994 Tdap 02/03/2023,03/06/2012 Family History Medical History Relation Name Comments Maria De Jesus Gehrig's disease Father Bone Grandfather Heart attack Grandfather Lung cancer Grandfather Bipolar disorder Mother Depression Mother Relation Name Status Comments Father Grandfather Mother Social History Tobacco Use Types Packs/Day Years Used Date Smoking Tobacco: Every Day Cigarettes 1.5 38.3 Started: 1985 Smokeless Tobacco: Never Tobacco Cessation:Ready to Q uit: Not Asked; Counseling Given: Not Answered Alcohol Use Standard Drinks/Week Comments Yes 0 (1 standard drink = 0.6 oz pur e alcohol) Nutrition Answer Date Recorded Nutrition: EVOO Fat Source Unknown 06/21 Nutrition: Servings of Fruits/Vegetables per Day Not on file 06/21/2020 Dental Answer Date Recorded Dental: Regular Dentist Unknown 06/22/19 21 Sex and Gender Information Value Date Recorded Sex Assigned at Not on file Gender Identity Female 06/24/2018 8:02 AM SENIOR RECRUITMENT CONSULTANT Sexual Orientation Straight 06/24/2018 8: 02 AM SENIOR RECRUITMENT CONSULTANT Last Filed Vital Signs Vital Sign Reading Time Taken Comments Blood Pressure 120/66 02/03/2023 6:30 PM CDT Pulse 75 02/03/2023 6:30 PM CDT Temperature 36.8 ??C (98.2 ??F) 02/03/2023 6:23 PM CD T Respiratory Rate 16 02/03/2023 6:23 PM CDT Oxygen Saturation 96% 02/03/2023 6:30 PM CDT Inhaled Oxygen Concentration - - Weight 107 kg (235 lb 10.8 oz) 02/03/2023 6:19 P M CDT Height 157.5 cm (5' 2) 06/27/2018 2:06 PM SENIOR RECRUITMENT CONSULTANT Body Mass Index 43.1 06/27/2018 2:06 PM SENIOR RECRUITMENT CONSULTANT Plan of Treatment Health Maintenance Due Date Last Done Comments CT Colonography 1968 Cologuard 1968 Colonoscopy 1968 Colorectal Cancer Screening 1968 FIT 1968 HIV Screening 1968 Hepatitis C Screening 1968 Lung Cancer Screening 1968 Tobacco Cessation counseling 1968 Pneumococcal vaccine (0-64 y ears) (1 of 2 - PCV) 1974 Zoster Vaccines (1 of 2) 2018 Mammogram 08/10/2021 08/10/2020, 0804/2010 (Performed elsewhere) COVID-19 Vaccine (3 - 2022-2 4 season) 2022 08/13/2020, 07/23/2020 Influenza Vaccine (#1) 2023 02/17/1997, 1996 Depression Screening (Annual PHQ-2) 04/23/2023 Fasting Glucose for Diabetes Screening 03/31/2024 03/31/2021, 03/31/2020, 05/16/2011 Lipid (Cholesterol) Screening 03/31/2025 03/31/2020 DTaP,Tdap,and Td Vaccines (4 - Td or Tdap) 02/03/2033 02/03/2023, 03/06/2014, 03/06/2012, Additional history exists Hepatitis B Vaccines Completed 03/22/1995, 09/27/1994, 08/23/1994 Procedures Procedure Name Priority Date/Time Associated Diagnosis Comments EXTI COMPREHENSIVE METABOLIC PANEL, S/P Routine 03/31/2021 9:14 AM SENIOR RECRUITMENT CONSULTANT BI BREAST SCREENING BILATERAL WITH TOMOSYNTHESIS RAD - Routine (most inpatients and all outpatients) 08/10/2020 7:46 AM CDT Screening Mammogram Breast Cancer EXTI LIPID PANEL, S Routine 03/31/2020 8 :35 AM SENIOR RECRUITMENT CONSULTANT from Last 3 Months or Most Recently Relevant to Health Maintenance Results * BI Breast Screening Bilateral with Tomosynthesis (08/10/2020 7:46 AM CDT) Anatomical Region Laterality Modality Breast, Breast Imaging RST L OS, Breast Imaging ARZ LOS, Breast Imaging FLA LOS Bilateral Mammography 08/10/2020 8:52 AM CDT Impressions 08/10/2020 8:55 AM CDT Negative. RECOMMENDATION: ??Annual Screening Mammogram ASSESSMENT: ??BI-RADS: 1: Negative. Narrative 08/10/2020 8:55 AM CDT EXAM: ??BI BREAST SCREENING BILATERAL WITH TOMOSYNTHESIS Current study was evaluated with a Computer Aided Detection (CAD) system. INDICATION: ??Screening mammogram. COMPARISON: ??None, this is a baseline screening exam. DENSITY: ??b. There are scattered areas of fibroglandular density. FINDINGS: ??No mammographic findings of malignancy. Procedure Note Narendra Guillen M.D. - 08/10/2020 EXAM: BI BREAST SCREENING BILATERAL WITH TOMOSYNTHESIS Current study was evaluated with a Computer Aided Detection (CAD) system. INDICATION: Screening mammogram. COMPARISON: None, this is a baseline screening exam. DENSITY: b. There are scattered areas of fibroglandular density. FINDINGS: No mammographic findings of malignancy. IMPRESSION: Negative. RECOMMENDATION: Annual Screening Mammogram ASSESSMENT: BI-RADS: 1: Negative. Julia Licea APRN.N.PCarine, Case.N.P. IMG BI PROCEDURES from Last 3 Months or Most Recently Relevant to Health Maintenance Care Teams Data Modeler Relationship Specialty Start Date End Date Elsewhere, Pcp PCP - General Internal Medicine 11/26/19
--- OUTSIDE RECORDS SUMMARY | 2023-10-15 09:38 | XMS_ITS ---
Author Organization [facility] Address [address] [place] [address] Care Team Providers Care Quality Control Analyst Name Role Phone Unavailable Unavailable Unavailable Surgery Details Not on file Complications Check Surgery Details section. Procedure Estimated Blood Loss Check Surgery Details section. Procedure Findings Check Surgery Details section. Procedure Specimens Taken Check Surgery Details section.
--- OUTSIDE RECORDS SUMMARY | 2023-10-15 09:38 | XMS_ITS | Encounter Summary ---
Author Organization [facility] Address [address] [place] [address] Care Team Providers Care Irrigation Teacher Name Role Phone Elsewhere, Pcp Primary Care Provider Unavailabl e Reason for Referral * Outpatient (Routine) - Authorized Specialty Diagnoses / Procedures Referred By Felix t Referred To Contact Diagnoses Hearing Exam Procedures PVM OCC Hearing screen Di Stinson P.A.Juan F., P.A. [address] [place] [phone] [facility] Region Referral ID Status Reason Start Date Expiration Date V isits Requested Visits Authorized [id number] Authorized 07/10/2023 07/09/2024 1 1 Reason for Visit * Reason Comments Audio Exam Bing Encounter Details Date Type Department Care Team (Latest Contact Info) Description 07/10/2023 9:30 AM CDT Clinical Support Department of Occupational Medicine in [address] [phone] Teresa Henderson M.D., M.P.H. [address] [place] [phone] Hearing Exam (Primary Dx) Discharge Disposition: Home or Self Care Social History Tobacco Use Types Packs/Day Years Used Date Smoking Tobacco: Every Day Cigarettes 1.5 38.3 Started: 1985 Smokeless Tobacco: Never Alcohol Use Standard [...] file Gender Identity Female 06/24/2018 8:02 AM TRAY DRIER Sexual Orientation Straight 06/24/2018 8: 02 AM TRAY DRIER documented as of this encounter Progress Notes * Uyen Sher, L.P.N. - 07/10/2023 9:30 AM CDT Audiogram for Bing. See scanned results. documented in this encounter Plan of Treatment Scheduled Orders Name Type Priority Associated Diagnoses Orde r Schedule PVM OCC Hearing screen Procedures Routine Hearing Exam Ordered: 07/10/2023 documented as of this encounter Visit Diagnoses Diagnosis Hearing Exam- Primary documented in this encounter Care Teams Irrigation Teacher Relationship Specialty Start Date End Date Elsewhere, Pcp PCP - General Internal Medicine 11/26/19 documented as of this encounter
--- OUTSIDE RECORDS SUMMARY | 2023-10-15 09:38 | XMS_ITS | Referral Summary ---
Author Organization [facility] Address [address] [place] [address] Care Team Providers Care Executive Vice President And Chief Financial Officer Name Role Phone Elsewhere, Pcp Primary Care Provider Unavailabl e Source Comments Patient records contain information from all sites at [facility]. For routine questions regarding patient records, call [phone] during business hours, M-F 8:00 AM - 5:00 PM Central Time. Record requests for emergency care only can be directed to [phone] at any time.[facility] Allergies Active Allergy Reactions Criticality Noted Date [...] 07/22/1969 Td, (Adult) Unspecified 08/23/1994 Tdap 02/03/2023,03/06/2012 Social History Tobacco Use Types Packs/Day Years [...] file Gender Identity Female 06/24/2018 8:02 AM CONCERT PROMOTER Sexual Orientation Straight 06/24/2018 8: 02 AM CONCERT PROMOTER Last Filed Vital Signs Vital Sign Reading [...] 157.5 cm (5' 2) 06/27/2018 2:06 PM CONCERT PROMOTER Body Mass Index 43.1 06/27/2018 2:06 PM CONCERT PROMOTER Plan of Treatment Not on file Procedures Procedure Name Priority Date/Time Associated Diagnosis Comments EXTI COMPREHENSIVE METABOLIC PANEL, S/P Routine 03/31/2021 9:14 AM CONCERT PROMOTER BI BREAST SCREENING BILATERAL WITH TOMOSYNTHESIS RAD - Routine (most inpatients and all outpatients) 08/10/2020 7:46 AM CDT Screening Mammogram Breast Cancer EXTI LIPID PANEL, S Routine 03/31/2020 8 :35 AM CONCERT PROMOTER from Last 3 Months or Most Recently [...] Annual Screening Mammogram ASSESSMENT: BI-RADS: 1: Negative. Mily Contreras APRN, C.N.P., D.N.P. IMG BI PROCEDURES from Last 3 Months or Most Recently Relevant to Health Maintenance Care Teams Executive Vice President And Chief Financial Officer Relationship Specialty Start Date End Date Elsewhere, Pcp PCP - General Internal Medicine 11/26/19
--- OUTSIDE RECORDS SUMMARY | 2023-10-15 09:38 | XMS_ITS | Encounter Summary ---
Author Organization [facility] Address [address] [place] [address] Care Team Providers Care Teacher Specialist Name Role Phone Elsewhere, Pcp Primary Care Provider Unavailabl e Reason for Referral * Outpatient (Routine) - Closed Specialty Diagnoses / Procedures Referred By Felix sheikh Referred To Contact Rheumatology Diagnoses Polyarthritis Silvana Velarde, C.N.P. [address] [place] [address] [facility] Referral ID Status Reason Start Date Expiration Date Visits Re quested Visits Authorized [id number] Closed 03/12/2018 03/12/2019 1 1 SPINNER Encounter Details Date Type Department Care Team (Late st Contact Info) Description 03/12/2018 Community Orders [facility] [address] [place] [address] Silvana Velarde, C.N.P. [address] [place] [address] Polyarthritis (Primary Dx) Social History Tobacco Use Types Packs/Day Years Used Date Smoking Tobacco: Every Day Sex and Gender Information Value Date Recorded Sex Assigned at Not on file Gender Identity Female 06/24/2018 8:02 AM HAND SPINNER Sexual Orientation Straight 06/24/2018 8: 02 AM HAND SPINNER documented as of this encounter Plan of Treatment Scheduled Referrals Name Type Priority Associated Diagnoses Order Schedule Rheumatology Referral Outpatient Referral Routine Polyarthritis Expected: 03/12/2018 (Approximate), Expires: 03/12/2021 documented as of this encounter Visit Diagnoses Diagnosis Polyarthritis- Primary documented in this encounter Additional Health Concerns Infection Onset Date Last Indicated Resolved Time COVID19 Pending 03/24/2020 03/25/2020 03/25/2020 1 1:55 PM HAND SPINNER COVID19 Pending 07/07/2020 07/07/2020 07/07/2020 9 :46 PM CDT documented as of this encounter Care Teams Teacher Specialist Relationship Specialty Start Date End Date Elsewhere, Pcp PCP - General Internal Medicine 11/26/19 documented as of this encounter
--- OUTSIDE RECORDS SUMMARY | 2023-10-15 09:38 | XMS_ITS | Clinical Summary ---
Author Organization [facility] [place] [address] Care Team Providers Care Quill Reamer Name Role Phone Silvana Velarde PHARMACY TECHNICIAN INSTRUCTOR Primary Care Provider Lynn vailable Pcp, No Unavailable Unavailable Allergies Active Allergy Reactions Criticality Noted Date Comments Meperidine 10/19/2010 Hydrocodone-Acetaminophen GI Upset 04/30/2012 Meperidine *Unknown 02/08/2021 Meperidine (Pf) Nausea Only 04/30/2012 Demerol HCL Oxycodone *Unknown 02/08/2021 Medications Medication Sig Dispensed Refills Start Date End Date Status acetaminophen-codei ne (Tylenol-Codeine #3) 300-30 mg per tabletIndications:A bscess of right heel,Acute osteomyelitis of right calcaneus (HC) Take 1-2 Tablets by mouth every 4 hours if needed for Pain. Max acetaminophen dose: 4000mg in 24 hrs. 20 Tablet 12/19/2021 Active levoFLOXacin (LEVAQUIN) 750 mg tablet 01/02/2022 Active Active Problems Problem Noted Date Diagnosed Date Calcific Achilles tendinitis of left lower extre mity Bone spur of posterior portion of left calcaneus Family History Medical History Relation Name Comments Good Health Brother 2 Good Health Daughter 4 Good Health Daughter 5 Good Health Daughter 6 Other Father ALS Other Mother chronic back Psychiatric illness Mother depressi on Good Health Sister 2 Relation Name Status Comments Brother 1 Alive Brother 2 Daughter 1 Alive Daughter 2 Alive Daughter 3 Alive Daughter 4 Daughter 5 Daughter 6 Father Alive Mother Alive Sister 1 Alive Sister 2 Social History Tobacco Use Types Packs/Day Years Used Date Smoking Tobacco: Every Day Cigarettes Smokeless Tobacco: Never Tobacco Cessation:Ready to Q uit: No; Counseling Given: Yes Comments:trying to quit Alcohol Use Standard Drinks/Week Comments Yes 0 (1 standard drink = 0.6 oz pur e alcohol) seldom Social Connections Answer Date Recorded Frequency of Communication with Friends and Fami ly Not on file 04/17/2021 Financial Resource Strain Answer Date R ecorded Difficulty of Paying Living Expenses Not on file 04/17/2021 Difficulty of Paying Living Expenses Not on file 04/17/2021 Sex and Gender Information Value Date Recorded Sex Assigned at Not on file Gender Identity Not on file Sexual Orientation Not on file Obstetrics History Last Filed Vital Signs Vital Sign Reading Time Taken Comments Blood Pressure 119/71 01/10/2022 1:07 PM CDT Pulse 74 01/24/2022 1:26 PM CDT Temperature 36.9 ??C (98.4 ??F) 01/24/2022 1:26 PM CD T Respiratory Rate 16 08/29/2021 4:00 PM CDT Oxygen Saturation 95% 01/24/2022 1:26 PM CDT Inhaled Oxygen Concentration - - Weight 99.4 kg (219 lb 1.6 oz) 08/29/2021 10:57 AM CDT Height 160 cm (5' 3) 08/29/2021 10:57 AM CDT Body Mass Index 38.81 08/29/2021 10:57 AM CDT Plan of Treatment Health Maintenance Due Date Last Done Comments Tdap 06/30/1979 Depression screening for age 12+ 1980 HIV for age 15-65 06/30/1983 Hepatitis C screening for ag e 18-79 1986 Tetanus booster 1988 Pap test for age 21-65 1989 Colonoscopy through age 75 2013 Lipids for age 45-75 2013 Mammogram for age 45-75 2013 10/27/2010 Zoster (shingles) series for age 50+ (1 of 2) 2018 BMI (ht and wt on same day) for age 18+ 03/31/2022 03/31/2021 COVID-19 vaccine series (2022- season) 2022 08/13/2020, 07/23/2020 Influenza for age 50-64 12/23/2023 Pneumococcal series for age 6-64 Aged Out No longer eligible b ased on patient's age to complete this topic Medical Devices Implanted Type Area Motion Picture Photographer Device Identifier Shelf Expiration Date Model / Serial / Lot Implant System, Biocomposite Achilles Speedbridge W/Jumpstart Implanted:Qty: 1 on 04/04/2021 by Tyshawn Mohr DPM at [facility] Right: Ankle [employer] 12/21/2022 [id number] -CP / / [id number] Implant System, Achilles Midsubstance Speedbridge Implanted:Qty: 1 on 08/29/2021 by Tyshawn Mohr DPM at [facility] Left: Ankle [employer] 05/23/2024 AR-8929BC- CP / / [id number] Suture Grand Chain, Biocomposite Swivellock C, Closed Eyelet Implanted:Qty: 2 on 08/29/2021 by Tyshawn Mohr DPM at [facility] Left: Ankle [employer] 04/22/2025 [id number] / / [id number] Advance Directives * Full Code (Latest Code Status on File) Date Activated Date Inactivated Comments 08/29/2021 9:54 AM 08/29/2021 7:58 PM Question Answer Comments Code Status Discussion: Reviewed Preferences * Full Code Date Activated Date Inactivated Comments 04/04/2021 10:26 AM 04/04/2021 6:33 PM Question Answer Comments Code Status Discussion: Reviewed Preferences Care Teams Quill Reamer Relationship Specialty Start Date End Date Silvana Velarde NP [address] [place] [address] PCP - General Emergency Medicine 03/16/21 Pcp, No . 03/16/21
== END 2023-10-15 09:26 | disposition home or self-care (01) ==
PROVIDERS: PCP Nurse Practitioner Family; Visit Provider Nurse Practitioner Family
DX: I10 Essential (primary) hypertension (principal); Z13.6 Encounter for screening for cardiovascular disorders; Z13.1 Encounter for screening for diabetes mellitus; Z13.228 Encounter for screening for other metabolic disorders
CPT/HCPCS: 80053; 80061; 85025

== ENCOUNTER 2024-01-15 13:23 | Outpatient (CLI) | payer BC, SELFPAY ==
--- OUTSIDE RECORDS SUMMARY | 2024-01-15 13:26 | XMS_ITS ---
Author Organization [facility] Address [address] [place] [address] Care Team Providers Care Supervisor Accounting Clerks Name Role Phone Unavailable Unavailable Unavailable Surgery Details Not on file Complications Check Surgery Details section. Procedure Estimated Blood Loss Check Surgery Details section. Procedure Findings Check Surgery Details section. Procedure Specimens Taken Check Surgery Details section.
--- OUTSIDE RECORDS SUMMARY | 2024-01-15 13:26 | XMS_ITS | Encounter Summary ---
Author Organization [facility] Address [address] [place] [address] Care Team Providers Care Knit Goods Mender Name Role Phone Elsewhere, Pcp Primary Care Provider Unavailabl e Reason for Referral * Outpatient (Routine) - Closed Specialty Diagnoses / Procedures Referred By Felix t Referred To Contact Rheumatology Diagnoses Polyarthritis Silvana Velarde, C.N.P. [address] [place] [phone] [facility] Referral ID Status Reason Start Date Expiration Date Visits Re quested Visits Authorized [id number] Closed 03/12/2018 03/12/2019 1 1 ETS AND BUILDINGS DECORATOR Encounter Details Date Type Department Care Team (Late st Contact Info) Description 03/12/2018 Community Orders [facility] [address] [place] [address] Silvana Velarde, C.N.P. [address] [place] [address] Polyarthritis (Primary Dx) Social History Tobacco Use Types Packs/Day Years Used Date Smoking Tobacco: Every Day Sex and Gender Information Value Date Recorded Sex Assigned at Not on file Gender Identity Female 06/24/2018 8:02 AM STREETS AND BUILDINGS DECORATOR Sexual Orientation Straight 06/24/2018 8: 02 AM STREETS AND BUILDINGS DECORATOR documented as of this encounter Plan of Treatment Scheduled Referrals Name Type Priority Associated Diagnoses Order Schedule Rheumatology Referral Outpatient Referral Routine Polyarthritis Expected: 03/12/2018 (Approximate), Expires: 03/12/2021 documented as of this encounter Visit Diagnoses Diagnosis Polyarthritis- Primary documented in this encounter Additional Health Concerns Infection Onset Date Last Indicated Resolved Time COVID19 Pending 03/24/2020 03/25/2020 03/25/2020 1 1:55 PM STREETS AND BUILDINGS DECORATOR COVID19 Pending 07/07/2020 07/07/2020 07/07/2020 9 :46 PM CDT documented as of this encounter Care Teams Knit Goods Mender Relationship Specialty Start Date End Date Elsewhere, Pcp PCP - General Internal Medicine 11/26/19 documented as of this encounter
--- OUTSIDE RECORDS SUMMARY | 2024-01-15 13:26 | XMS_ITS | Clinical Summary ---
Author Organization [facility] Address [address] [place] [address] Care Team Providers Care Rn Orthopedic Name Role Phone Elsewhere, Pcp Primary Care Provider Unavailabl e Source Comments Patient records contain information from all sites at [facility]. For routine questions regarding patient records, call [phone] during business hours, M-F 8:00 AM - 5:00 PM Central Time. Record requests for emergency care only can be directed to [phone] at any time.[facility] Allergies Active Allergy Reactions Criticality Noted [...] Date Smoking Tobacco: Every Day Cigarettes 1.5 38.5 Started: 1985 Smokeless Tobacco: Never Tobacco Cessation:Ready [...] file Gender Identity Female 06/24/2018 8:02 AM ROUNDER HAND Sexual Orientation Straight 06/24/2018 8: 02 AM ROUNDER HAND Last Filed Vital Signs Vital Sign Reading [...] 157.5 cm (5' 2) 06/27/2018 2:06 PM ROUNDER HAND Body Mass Index 43.1 06/27/2018 2:06 PM ROUNDER HAND Plan of Treatment Health Maintenance Due Date Last Done Comments CT Colonography 1968 Cologuard 1968 Colonoscopy 1968 Colorectal Cancer Screening 1968 FIT 1968 HIV Screening 1968 Hepatitis C Screening 1968 Lung Cancer Screening 1968 Tobacco Cessation counseling 1968 Pneumococcal vaccine (0-64 y ears) (1 of 2 - PCV) 1974 Zoster Vaccines (1 of 2) 2018 Mammogram 08/10/2021 08/10/2020, 0804/2010 (Performed elsewhere) Depression Screening (Annual PHQ-2) 04/23/2023 COVID-19 Vaccine (3 - 2023-2 5 season) 2023 08/13/2020, 07/23/2020 Influenza Vaccine (#1) 2024 02/17/1997, 1996 Fasting Glucose for Diabetes Screening 03/31/2024 03/31/2021, 03/31/2020, 05/16/2011 Lipid (Cholesterol) Screening 03/31/2025 03/31/2020 DTaP,Tdap,and Td Vaccines (4 - Td or Tdap) 02/03/2033 02/03/2023, 03/06/2014, 03/06/2012, Additional history exists Hepatitis B Vaccines Completed 03/22/1995, 09/27/1994, 08/23/1994 Procedures Procedure Name Priority Date/Time Associated Diagnosis Comments BI BREAST SCREENING BILATERAL WITH TOMOSYNTHESIS RAD - Routine (most inpatients and all outpatients) 08/10/2020 7:46 AM CDT Screening Mammogram Breast Cancer BASIC METABOLIC PANEL, S/P Routine 05/16/2011 8:41 PM ROUNDER HAND from Last 3 Months or Most Recently [...] Annual Screening Mammogram ASSESSMENT: BI-RADS: 1: Negative. Rika Licea APRNNTung, D.N.P. IMG BI PROCEDURES * (ABNORMAL) BMP (Basic Metabolic Panel) (05/16/2011 8:41 PM ROUNDER HAND) Sodium, S 134.6(L) 135.0 - 145.0 MML POWERCHART Potassium, S 3.7 3.6 - 4.8 MML POWERCHART Chloride, S 101 100 - 108 MML POWERCHART CO2 Total 24.3 23.0 - 29.0 MMOLL POWERCHART BUN (Blood Urea Nitrogen), S 16 7 - 18 MGDL POWERCHART Creatinine 0.74 0.60 - 1.30 MGDL POWERCHART Calcium, Total, S 9.3 8.5 - 10.1 MGDL POWERCHART BUN/Creatinine Ratio 21.0(H) 10.0 - 20.0 POWERCHART Anion Gap 9(L) 10 - 20 MMOLL POWERCHART HXeGFR (MDRD) >60(H) <=61 [id number] POWERCHART Comment: A GFR of <60 mL/min is indicative of chronic kidney disease. (MDRD calculation valid on patients 18 -70 years.) eGFR Black/ >60 MLMIN POWERCHART Glucose 94 70 - 139 MGDL POWERCHART Blood 05/16/2011 8:41 PM ROUNDER HAND Misael Mann M.D. LAB BLOOD ADD- ON POWERCHART from Last 3 Months or Most Recently Relevant to Health Maintenance Care Teams Rn Orthopedic Relationship Specialty Start Date End Date Elsewhere, Pcp PCP - General Internal Medicine 11/26/19
--- OUTSIDE RECORDS SUMMARY | 2024-01-15 13:26 | XMS_ITS | Clinical Summary ---
Author Organization [facility] Address [address] [place] [address] Care Team Providers Care Tree Doctor Name Role Phone Silvana Velarde Silva DIRECTOR MEDICAL WRITING, TRAUMA DIRECTOR Primary Care Provi jaylon Allergies Active Allergy [...] 6mo-64yrs Quad Pre servative Free IM 02/17/1997 Influenza, Split Virus, Triv alent, Preservative 02/17/1997 Influenza, Unspecified 02/17/1997 MMR 08/23/1994 Measles [...] Mammogram 08/10/2021 08/10/2020 COVID-19 Vaccine ( season) 2023 08/13/2020, 07/23/2020 Influenza Vaccine (#1) 2023 7, 02/17/1997, 02/17/1997 DTaP,Tdap,and Td Vaccines (4 - [...] age to complete this topic Care Teams Tree Doctor Relationship Specialty Start Date End Date Silvana Velarde, DIRECTOR MEDICAL WRITING, TRAUMA DIRECTOR [address] [place] [address] PCP - General Family Medicine 09/19/22
--- OUTSIDE RECORDS SUMMARY | 2024-01-15 13:26 | XMS_ITS | Referral Summary ---
Author Organization [facility] Address [address] [place] [address] Care Team Providers Care Cotton Machine Operator Name Role Phone Elsewhere, Pcp Primary Care Provider Unavailabl e Source Comments Patient records contain information from all sites at [facility]. For routine questions regarding patient records, call [phone] during business hours, M-F 8:00 AM - 5:00 PM Central Time. Record requests for emergency care only can be directed to [phone] at any time.[facility] Allergies Active Allergy Reactions Criticality Noted Date [...] file Gender Identity Female 06/24/2018 8:02 AM RETORT FIREMAN Sexual Orientation Straight 06/24/2018 8: 02 AM RETORT FIREMAN Last Filed Vital Signs Vital Sign Reading [...] 157.5 cm (5' 2) 06/27/2018 2:06 PM RETORT FIREMAN Body Mass Index 43.1 06/27/2018 2:06 PM RETORT FIREMAN Plan of Treatment Not on file Procedures Procedure Name Priority Date/Time Associated Diagnosis Comments BI BREAST SCREENING BILATERAL WITH TOMOSYNTHESIS RAD - Routine (most inpatients and all outpatients) 08/10/2020 7:46 AM CDT Screening Mammogram Breast Cancer BASIC METABOLIC PANEL, S/P Routine 05/16/2011 8:41 PM RETORT FIREMAN from Last 3 Months or Most Recently [...] Contreras APRN, C.N.P., D.N.P. IMG BI PROCEDURES * (ABNORMAL) BMP (Basic Metabolic Panel) (05/16/2011 8:41 PM RETORT FIREMAN) Sodium, S 134.6(L) 135.0 - 145.0 MML [...] 20 MMOLL POWERCHART HXeGFR (MDRD) >60(H) <=61 [id number] POWERCHART Comment: A GFR of <60 mL/min is indicative of chronic kidney disease. (MDRD calculation valid on patients 18 -70 years.) eGFR Black/ >60 MLMIN POWERCHART Glucose 94 70 - 139 MGDL POWERCHART Blood 05/16/2011 8:41 PM RETORT FIREMAN Misael Mann M.D. LAB BLOOD ADD- ON POWERCHART from Last 3 Months or Most Recently Relevant to Health Maintenance Care Teams Cotton Machine Operator Relationship Specialty Start Date End Date Elsewhere, Pcp PCP - General Internal Medicine 11/26/19
--- OUTSIDE RECORDS SUMMARY | 2024-01-15 13:26 | XMS_ITS | Clinical Summary ---
Author Organization [facility] Address [place], [place] [address] Care Team Providers Care Pan Pusher Name Role Phone Silvana Velarde PALLIATIVE CARE COORDINATOR Primary Care Provider Lynn vailable Pcp, No [...] age 18+ 03/31/2022 03/31/2021 COVID-19 vaccine series (2023- season) 2023 08/13/2020, 07/23/2020 Influenza for age 50-64 12/23/2023 Pneumococcal series for age 6-64 Aged Out No longer eligible b ased on patient's age to complete this topic Medical Devices Implanted Type Area Acoustics Teacher Device Identifier Shelf Expiration Date Model / Serial / Lot Implant System, Biocomposite Achilles Speedbridge W/Jumpstart Implanted:Qty: 1 on 04/04/2021 by Tyshawn Mohr DPM at [facility] Right: Ankle [employer] 12/21/2022 [id number]-8928BCJ -CP / / [id number] Implant System, Achilles Midsubstance Speedbridge Implanted:Qty: 1 on 08/29/2021 by Tyshawn Mohr DPM at [facility] Left: Ankle [employer] 05/23/2024 AR-8929BC- CP / / [id number] Suture [place], Biocomposite Swivellock C, Closed Eyelet Implanted:Qty: 2 on 08/29/2021 by Tyshawn Mohr DPM at [facility] Left: Ankle [employer] 04/22/2025 [id number] / / [id number] Advance Directives * Full Code (Latest Code Status on File) Date Activated Date Inactivated Comments 08/29/2021 9:54 AM 08/29/2021 7:58 PM Question Answer Comments Code Status Discussion: Reviewed Preferences * Full Code Date Activated Date Inactivated Comments 04/04/2021 10:26 AM 04/04/2021 6:33 PM Question Answer Comments Code Status Discussion: Reviewed Preferences Care Teams Pan Pusher Relationship Specialty Start Date End Date Silvana Velarde NP [address] [place] [address] PCP - General Emergency Medicine 03/16/21 Pcp, No . 03/16/21
== END 2024-01-15 13:24 | disposition home or self-care (01) ==
LOC: KYNREF 13:24
PROVIDERS: PCP Nurse Practitioner Family; Visit Provider Nurse Practitioner Family
DX: N61.1 Abscess of the breast and nipple (principal); B95.61 Methicillin susceptible Staphylococcus aureus infection as the cause of diseases classified elsewhere
CPT/HCPCS: 87070; 87186

== ENCOUNTER 2024-01-28 13:24 | Outpatient (CLI) | payer BC, SELFPAY ==
--- OUTSIDE RECORDS SUMMARY | 2024-01-28 13:27 | XMS_ITS | Clinical Summary ---
Author Organization [facility] Address [address] [place] [address] Care Team Providers Care Sexer Name Role Phone Silvana Velarde NEEDLE BOARD REPAIRER, FARMWORKER EGG PRODUCING FARM Primary Care Provi jaylon Allergies Active Allergy [...] age to complete this topic Care Teams Sexer Relationship Specialty Start Date End Date Silvana Velarde, NEEDLE BOARD REPAIRER, FARMWORKER EGG PRODUCING FARM [address] [place] [address] PCP - General Family Medicine 09/19/22
--- OUTSIDE RECORDS SUMMARY | 2024-01-28 13:27 | XMS_ITS | Clinical Summary ---
Author Organization [facility] Address [address] [place] [address] Care Team Providers Care Information Technology Project Manager Name Role Phone Elsewhere, Pcp Primary Care Provider Unavailabl e Source Comments Patient records contain information from all sites at [facility]. For routine questions regarding patient records, call [phone] during business hours, M-F 8:00 AM - 5:00 PM Central Time. Record requests for emergency care only can be directed to [phone] at any time.[facility] Allergies Active Allergy Reactions Criticality Noted [...] Date Smoking Tobacco: Every Day Cigarettes 1.5 38.6 Started: 1985 Smokeless Tobacco: Never Tobacco Cessation:Ready [...] file Gender Identity Female 06/24/2018 8:02 AM LIBRARY SERVICES DEAN Sexual Orientation Straight 06/24/2018 8: 02 AM LIBRARY SERVICES DEAN Last Filed Vital Signs Vital Sign Reading [...] 157.5 cm (5' 2) 06/27/2018 2:06 PM LIBRARY SERVICES DEAN Body Mass Index 43.1 06/27/2018 2:06 PM LIBRARY SERVICES DEAN Plan of Treatment Health Maintenance Due Date [...] METABOLIC PANEL, S/P Routine 05/16/2011 8:41 PM LIBRARY SERVICES DEAN from Last 3 Months or Most Recently [...] BMP (Basic Metabolic Panel) (05/16/2011 8:41 PM LIBRARY SERVICES DEAN) Sodium, S 134.6(L) 135.0 - 145.0 MML [...] 20 MMOLL POWERCHART HXeGFR (MDRD) >60(H) <=61 [id number] POWERCHART Comment: A GFR of <60 mL/min is indicative of chronic kidney disease. (MDRD calculation valid on patients 18 -70 years.) eGFR Black/ >60 MLMIN POWERCHART Glucose 94 70 - 139 MGDL POWERCHART Blood 05/16/2011 8:41 PM LIBRARY SERVICES DEAN Misael Mann M.D. LAB BLOOD ADD- ON POWERCHART from Last 3 Months or Most Recently Relevant to Health Maintenance Care Teams Information Technology Project Manager Relationship Specialty Start Date End Date Elsewhere, Pcp PCP - General Internal Medicine 11/26/19
--- OUTSIDE RECORDS SUMMARY | 2024-01-28 13:27 | XMS_ITS | Encounter Summary ---
Author Organization [facility] Address [address] [place] [address] Care Team Providers Care Cash Surrender Calculator Name Role Phone Elsewhere, Pcp Primary Care Provider Unavailabl e Reason for Referral * Outpatient (Routine) - Closed Specialty Diagnoses / Procedures Referred By Felix t Referred To Contact Rheumatology Diagnoses Polyarthritis Silvana Velarde, C.N.P. [address] [place] [phone] [facility] Referral ID Status Reason Start Date Expiration Date Visits Re quested Visits Authorized [id number] Closed 03/12/2018 03/12/2019 1 1 OR HARDWARE ENGINEER Encounter Details Date Type Department Care Team (Late st Contact Info) Description 03/12/2018 Community Orders [facility] [address] [place] [address] Silavna Velarde, C.N.P. [address] [place] [address] Polyarthritis (Primary Dx) Social History Tobacco Use Types Packs/Day Years Used Date Smoking Tobacco: Every Day Sex and Gender Information Value Date Recorded Sex Assigned at Not on file Gender Identity Female 06/24/2018 8:02 AM SENIOR HARDWARE ENGINEER Sexual Orientation Straight 06/24/2018 8: 02 AM SENIOR HARDWARE ENGINEER documented as of this encounter Plan of Treatment Scheduled Referrals Name Type Priority Associated Diagnoses Order Schedule Rheumatology Referral Outpatient Referral Routine Polyarthritis Expected: 03/12/2018 (Approximate), Expires: 03/12/2021 documented as of this encounter Visit Diagnoses Diagnosis Polyarthritis- Primary documented in this encounter Additional Health Concerns Infection Onset Date Last Indicated Resolved Time COVID19 Pending 03/24/2020 03/25/2020 03/25/2020 1 1:55 PM SENIOR HARDWARE ENGINEER COVID19 Pending 07/07/2020 07/07/2020 07/07/2020 9 :46 PM CDT documented as of this encounter Care Teams Cash Surrender Calculator Relationship Specialty Start Date End Date Elsewhere, Pcp PCP - General Internal Medicine 11/26/19 documented as of this encounter
--- OUTSIDE RECORDS SUMMARY | 2024-01-28 13:27 | XMS_ITS ---
Author Organization [facility] Address [address] [place] [address] Care Team Providers Care Clay Digger Name Role Phone Unavailable Unavailable Unavailable Surgery Details Not on file Complications Check Surgery Details section. Procedure Estimated Blood Loss Check Surgery Details section. Procedure Findings Check Surgery Details section. Procedure Specimens Taken Check Surgery Details section.
--- OUTSIDE RECORDS SUMMARY | 2024-01-28 13:27 | XMS_ITS | Clinical Summary ---
Author Organization [facility] Address [place], [place] [address] Care Team Providers Care Portable Track Crew Chief Name Role Phone Silvana Velarde FEEDER SWITCHBOARD OPERATOR Primary Care Provider Lynn vailable Pcp, No [...] this topic Medical Devices Implanted Type Area Wire Turning Machine Operator Device Identifier Shelf Expiration Date Model / Serial / Lot Implant System, Biocomposite Achilles Speedbridge W/Jumpstart Implanted:Qty: 1 on 04/04/2021 by Tyshawn Mohr DPM at [facility] Right: Ankle [employer] 12/21/2022 [id number] -CP / / [id number] Implant System, Achilles Midsubstance Speedbridge Implanted:Qty: 1 on 08/29/2021 by Tyshawn Mohr DPM at [facility] Left: Ankle [employer] 05/23/2024 AR-8929BC- CP / / [id number] Suture Adrian, Biocomposite [place]ivellock C, Closed Eyelet Implanted:Qty: 2 on 08/29/2021 by Tyshawn Mohr DPM at [facility] Left: Ankle [employer] 04/22/2025 [id number] / / [id number] Advance Directives * Full Code (Latest Code Status on File) Date Activated Date Inactivated Comments 08/29/2021 9:54 AM 08/29/2021 7:58 PM Question Answer Comments Code Status Discussion: Reviewed Preferences * Full Code Date Activated Date Inactivated Comments 04/04/2021 10:26 AM 04/04/2021 6:33 PM Question Answer Comments Code Status Discussion: Reviewed Preferences Care Teams Portable Track Crew Chief Relationship Specialty Start Date End Date Silvana Velarde NP [address] [place] [address] PCP - General Emergency Medicine 03/16/21 Pcp, No . 03/16/21
--- OUTSIDE RECORDS SUMMARY | 2024-01-28 13:27 | XMS_ITS | Referral Summary ---
Author Organization [facility] Address [address] [place] [address] Care Team Providers Care Automobile Service Station Mechanic Name Role Phone Elsewhere, Pcp Primary Care Provider Unavailabl e Source Comments Patient records contain information from all sites at [facility]. For routine questions regarding patient records, call [phone] during business hours, M-F 8:00 AM - 5:00 PM Central Time. Record requests for emergency care only can be directed to [phone] at any time.[facility] Allergies Active Allergy Reactions Criticality Noted Date [...] file Gender Identity Female 06/24/2018 8:02 AM MAGENTO DEVELOPER Sexual Orientation Straight 06/24/2018 8: 02 AM MAGENTO DEVELOPER Last Filed Vital Signs Vital Sign Reading [...] 157.5 cm (5' 2) 06/27/2018 2:06 PM MAGENTO DEVELOPER Body Mass Index 43.1 06/27/2018 2:06 PM MAGENTO DEVELOPER Plan of Treatment Not on file Procedures Procedure Name Priority Date/Time Associated Diagnosis Comments BI BREAST SCREENING BILATERAL WITH TOMOSYNTHESIS RAD - Routine (most inpatients and all outpatients) 08/10/2020 7:46 AM CDT Screening Mammogram Breast Cancer BASIC METABOLIC PANEL, S/P Routine 05/16/2011 8:41 PM MAGENTO DEVELOPER from Last 3 Months or Most Recently [...] BMP (Basic Metabolic Panel) (05/16/2011 8:41 PM MAGENTO DEVELOPER) Sodium, S 134.6(L) 135.0 - 145.0 MML [...] 20 MMOLL POWERCHART HXeGFR (MDRD) >60(H) <=61 [id number] POWERCHART Comment: A GFR of <60 mL/min is indicative of chronic kidney disease. (MDRD calculation valid on patients 18 -70 years.) eGFR Black/ >60 MLMIN POWERCHART Glucose 94 70 - 139 MGDL POWERCHART Blood 05/16/2011 8:41 PM MAGENTO DEVELOPER Misael Mann M.D. LAB BLOOD ADD- ON POWERCHART from Last 3 Months or Most Recently Relevant to Health Maintenance Care Teams Automobile Service Station Mechanic Relationship Specialty Start Date End Date Elsewhere, Pcp PCP - General Internal Medicine 11/26/19
--- NOTE | 2024-01-28 13:45 | MR_ITS ---
[facility] [address] [facility] [address] Phone:?[phone] Fax:?[phone] Referring Physician Information: Mila Rosenberg [address] [facility] [address] Phone:?[phone] Fax:?[phone] Patient:Monica Grullon D.O.B:?1970 Sex:?Female Phone:?[phone] [facility] MRN:?[id number] Exam Date:?01/28/2024 EXAM: MRI of the RIGHT KNEE, without contrast CLINICAL INFORMATION: Female, 53 years old, with right knee pain. INDICATION: Evaluate for internal derangement. PRIOR SURGERY: History of knee surgery in 2021. PLAIN FILMS: None available. COMPARISONS: Right knee MRI dated 02/16/2022. TECHNICAL INFORMATION: Using a 1.5T MR scanner and a localizing surface coil: sagittals: PD, PDFS coronals: PD, T2FS axials: PD, PDFS SEDATION: None CONTRAST: None FINDINGS: Knee joint: Effusion: Moderate-marked right knee effusion, with synovitis. Popliteal cyst: Small, unruptured popliteal (Patel's) cyst. Loose bodies: None. Subcutaneous and extra-articular soft tissues: Unremarkable. Ligaments: ACL: Intact ACL anteromedial and posterolateral bundles, without sprain or tear. PCL: Intact PCL, without acute or chronic injury. MCL: Intact MCL superficial and deep layers, without injury. LCL: Intact LCL, without injury. Posterolateral corner: No posterolateral corner soft tissue injury. Popliteus, biceps femoris, iliotibial band, popliteofibular ligament and lateral gastrocnemius are intact. Posteromedial corner: No posteromedial corner soft tissue injury. Semimembranosus, pes anserine tendons and posterior oblique ligament are without injury, tendinopathy or bursitis. Extensor mechanism: Patellar tendon: Intact, without tendinopathy. Quadriceps tendon: Intact, without tendinopathy. Retinacula: Medial and lateral retinacula are intact. Fat pads: Moderate edema-like signal is present throughout the suprapatellar fat pad (sagittal PDFS series 6 image 14). Medial compartment: Medial meniscus: Status post posterior root repair. The meniscus is intact leading up to the repair site. Apical free edge and undersurface tearing is present throughout the posterior horn and body over a length of 2.3 cm (sagittal PDFS series 6 images 18-24 and coronal STIR series 8 images 18-21). Associated meniscal extrusion measures 7 mm. Medial femoral condyle & tibial plateau: Broad-based grade III/IV chondromalacia throughout the central, weightbearing aspect of the medial compartment, with moderate reactive osseous changes and mild/moderate marginal osteophytosis. Lateral compartment: Lateral meniscus: No articular surface, meniscosynovial junction or root tear. No displacement, extrusion or parameniscal cyst. Lateral femoral condyle: Broad-based grade II chondromalacia following the posterior surface of the lateral femoral condyle, without reactive osseous changes. Lateral tibial plateau: No chondromalacia or osteochondral abnormality. Patellofemoral joint: Patella: Broad-based grade II chondromalacia is centered about the mid median ridge of the patella with superimposed chondral fissuring. Trochlea: No chondromalacia or osteochondral abnormality. Proximal tibiofibular joint: Unremarkable, without evidence of ligament sprain injury, joint effusion or adjacent marrow edema. Bones: No stress/occult fractures or other marrow edema/pathology. IMPRESSION: 1. Status post medial meniscal posterior root repair with recurrent apical free edge and undersurface tearing of the posterior horn and body measuring 2.3 cm, with 7 mm of meniscal extrusion. However, the meniscus is intact at the repair site. 2. 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 3. 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 4. Moderate-marked knee joint effusion with synovitis and a small, unruptured popliteal (Patel's) cyst. 5. No cruciate or collateral ligament sprain/tear. 6. No lateral meniscal tear. BC Electronically signed on 01/28/2024 4:34:00 PM by Misael Demarco M.D.
== END 2024-01-28 13:25 | disposition home or self-care (01) ==
LOC: MRI 13:24
PROVIDERS: PCP Nurse Practitioner Family; Visit Provider Nurse Practitioner Family
DX: M25.561 Pain in right knee (principal); S83.241A Other tear of medial meniscus, current injury, right knee, initial encounter; M94.261 Chondromalacia, right knee; M25.461 Effusion, right knee
CPT/HCPCS: 73721

== ENCOUNTER 2024-02-14 08:52 | Outpatient (CLI) | payer BC, SELFPAY ==
--- OUTSIDE RECORDS SUMMARY | 2024-02-14 09:02 | XMS_ITS | Referral Summary ---
Author Organization [facility] Address [address] [place] [address] Care Team Providers Care Street Light Mechanic Name Role Phone Elsewhere, Pcp Primary Care Provider Unavailabl e Source Comments Patient records contain information from all sites at [facility]. For routine questions regarding patient records, call [phone] during business hours, M-F 8:00 AM - 5:00 PM Central Time. Record requests for emergency care only can be directed to [phone] at any time.[facility] Allergies Active Allergy Reactions Criticality Noted Date Comments Meperidine (Pf) Nausea Only 04/30/2012 Demerol HCL Hydrocodone-Acetaminophen GI intolerance 2012 Meperidine Other (see comments) Oxycodone-Acetaminophen Other (see comments) Medications IBUPROFEN ORAL Take by mouth as needed. [...] Recorded Dental: Regular Dentist Unknown 06/22/19 21 Comments No Sex and Gender Information Value Date Recorded Sex Assigned at Not on file Legal Sex Female 3:43 AM TIP MENDER Gender Identity Female 06/24/2018 8:02 AM TIP MENDER Sexual Orientation Straight 06/24/2018 8: 02 AM TIP MENDER Last Filed Vital Signs Vital Sign Reading [...] 157.5 cm (5' 2) 06/27/2018 2:06 PM TIP MENDER Body Mass Index 43.1 06/27/2018 2:06 PM TIP MENDER Plan of Treatment Not on file Procedures Procedure Name Priority Date/Time Associated Diagnosis Comments BI BREAST SCREENING BILATERAL WITH TOMOSYNTHESIS RAD - Routine (most inpatients and all outpatients) 08/10/2020 7:46 AM CDT Screening Mammogram Breast Cancer BASIC METABOLIC PANEL, S/P Routine 05/16/2011 8:41 PM TIP MENDER from Last 3 Months or Most Recently [...] 1: Negative. Mily Contreras APRN, C.N.P., D.N.P. [facility] PROC EDURES Final Result * (ABNORMAL) BMP (Basic Metabolic Panel) (05/16/2011 8:41 PM TIP MENDER) Sodium, S 134.6(L) 135.0 - 145.0 MML [...] 20 MMOLL POWERCHART HXeGFR (MDRD) >60(H) <=61 [id number] POWERCHART Comment: A GFR of <60 mL/min is indicative of chronic kidney disease. (MDRD calculation valid on patients 18 -70 years.) eGFR Black/ >60 MLMIN POWERCHART Glucose 94 70 - 139 MGDL POWERCHART Blood 05/16/2011 8:41 PM TIP MENDER Misael Mann M.D. LAB BLOOD ADD-ON Final Result POWERCHART from Last 3 Months or Most Recently Relevant to [place] [phone] [facility] Care Teams Street Light Mechanic Relationship Specialty Start Date End Date Elsewhere, Pcp PCP - General Internal Medicine 11/26/19
--- OUTSIDE RECORDS SUMMARY | 2024-02-14 09:02 | XMS_ITS | Clinical Summary ---
Author Organization [facility] Address [place], [place] [address] Care Team Providers Care Television Producer Name Role Phone Silvana Velarde WESTERN TACK ASSEMBLY LINE WORKER Primary Care Provider Lynn vailable Pcp, No [...] this topic Medical Devices Implanted Type Area Entry Level Business Analyst Device Identifier Shelf Expiration Date Model / Serial / Lot Implant System, Biocomposite Achilles Speedbridge W/Jumpstart Implanted:Qty: 1 on 04/04/2021 by Tyshawn Mohr DPM at [facility] Right: Ankle [employer] 12/21/2022 [id number] -CP / / [id number] Implant System, Achilles Midsubstance Speedbridge Implanted:Qty: 1 on 08/29/2021 by Tyshawn Mohr DPM at [facility] Left: Ankle [employer] 05/23/2024 AR-8929BC- CP / / [id number] Suture [place], Biocomposite Swivellock C, Closed Eyelet Implanted:Qty: 2 on 08/29/2021 by Tyshawn Mohr DPM at [facility] Left: Ankle [employer] 04/22/2025 [id number] / / [id number] Advance Directives * Full Code (Latest Code Status on File) Date Activated Date Inactivated Comments 08/29/2021 9:54 AM 08/29/2021 7:58 PM Question Answer Comments Code Status Discussion: Reviewed Preferences * Full Code Date Activated Date Inactivated Comments 04/04/2021 10:26 AM 04/04/2021 6:33 PM Question Answer Comments Code Status Discussion: Reviewed Preferences Care Teams Television Producer Relationship Specialty Start Date End Date Silvana Velarde NP [address] [place] [address] PCP - General Emergency Medicine 03/16/21 Pcp, No . 03/16/21
--- OUTSIDE RECORDS SUMMARY | 2024-02-14 09:02 | XMS_ITS | Encounter Summary ---
Author Organization [facility] Address [address] [place] [address] Care Team Providers Care Manager Gyn Name Role Phone Elsewhere, Pcp Primary Care Provider Unavailabl e Reason for Referral * Outpatient (Routine) - Closed Specialty Diagnoses / Procedures Referred By Contjared t Referred To Contact Rheumatology Diagnoses Polyarthritis Silvana Velarde, C.N.P. Phone: tel: fax: [facility] Referral ID Status Reason Start Date Expiration Date Visits Re quested Visits Authorized [id number] Closed 03/12/2018 03/12/2019 1 1 RACY COACH Encounter Details Date Type Department Care Team (Late st Contact Info) Description 03/12/2018 Community Orders [facility] [address] [place] [phone] Silvana Velarde, C.N.P. [address] [place] [address] Polyarthritis (Primary Dx) Social History Tobacco Use Types Packs/Day Years Used Date Smoking Tobacco: Every Day Comments Unknown Sex and Gender Information Value Date Recorded Sex Assigned at Not on file Legal Sex Female 3:43 AM LITERACY COACH Gender Identity Female 06/24/2018 8:02 AM LITERACY COACH Sexual Orientation Straight 06/24/2018 8: 02 AM LITERACY COACH documented as of this encounter Plan of Treatment Scheduled Referrals Name Type Priority Associated Diagnoses Order Schedule Rheumatology Referral Outpatient Referral Routine Polyarthritis Expected: 03/12/2018 (Approximate), Expires: 03/12/2021 documented as of this encounter Visit Diagnoses Diagnosis Polyarthritis- Primary documented in this encounter Additional Health Concerns Infection Onset Date Last Indicated Resolved Time COVID19 Pending 03/24/2020 03/25/2020 03/25/2020 1 1:55 PM LITERACY COACH COVID19 Pending 07/07/2020 07/07/2020 07/07/2020 9 :46 PM CDT documented as of this encounter Care Teams Manager Gyn Relationship Specialty Start Date End Date Elsewhere, Pcp PCP - General Internal Medicine 11/26/19 documented as of this encounter
--- OUTSIDE RECORDS SUMMARY | 2024-02-14 09:02 | XMS_ITS | Clinical Summary ---
Author Organization [facility] Address [address] [place] [address] Care Team Providers Care Regional Medical Director Name Role Phone Silvana Velarde Silva HAND METHOD LASTING MACHINE OPERATOR, PARTY PLAN SELLING DISTRIBUTOR Primary Care Provi jaylon Allergies Active Allergy [...] age to complete this topic Care Teams Regional Medical Director Relationship Specialty Start Date End Date Silvana Velarde, HAND METHOD LASTING MACHINE OPERATOR, PARTY PLAN SELLING DISTRIBUTOR [address] [place] [address] PCP - General Family Medicine 09/19/22
--- OUTSIDE RECORDS SUMMARY | 2024-02-14 09:02 | XMS_ITS | Clinical Summary ---
Author Organization [facility] Address [address] [place] [address] Care Team Providers Care Cereal Miller Name Role Phone Elsewhere, Pcp Primary Care Provider Unavailabl e Source Comments Patient records contain information from all sites at [facility]. For routine questions regarding patient records, call [phone] during business hours, M-F 8:00 AM - 5:00 PM Central Time. Record requests for emergency care only can be directed to [phone] at any time.[facility] Allergies Active Allergy Reactions Criticality Noted Date [...] on file Legal Sex Female 3:43 AM PHARMACIST MANAGER Gender Identity Female 06/24/2018 8:02 AM PHARMACIST MANAGER Sexual Orientation Straight 06/24/2018 8: 02 AM PHARMACIST MANAGER Last Filed Vital Signs Vital Sign Reading [...] 157.5 cm (5' 2) 06/27/2018 2:06 PM PHARMACIST MANAGER Body Mass Index 43.1 06/27/2018 2:06 PM PHARMACIST MANAGER Plan of Treatment Health Maintenance Due Date Last Done Comments CT Colonography 1968 Cologuard 1968 Colonoscopy 1968 Colorectal Cancer Screening 1968 FIT 1968 HIV Screening 1968 Hepatitis C Screening 1968 Lung Cancer Screening 1968 Tobacco Cessation counseling 1968 Pneumococcal vaccine (0-64 y ears) (1 of 2 - PCV) 1974 Zoster Vaccines (1 of 2) 2018 Mammogram 08/10/2021 08/10/2020, 04/2010 (Performed elsewhere) Depression Screening (Annual PHQ-2) 04/23/2023 [...] METABOLIC PANEL, S/P Routine 05/16/2011 8:41 PM PHARMACIST MANAGER from Last 3 Months or Most Recently [...] 1: Negative. Mily Contreras APRN, C.N.P., D.N.P. [facility] BI PROC EDURES Final Result * (ABNORMAL) BMP (Basic Metabolic Panel) (05/16/2011 8:41 PM PHARMACIST MANAGER) Sodium, S 134.6(L) 135.0 - 145.0 MML [...] 20 MMOLL POWERCHART HXeGFR (MDRD) >60(H) <=61 [id number] POWERCHART Comment: A GFR of <60 mL/min is indicative of chronic kidney disease. (MDRD calculation valid on patients 18 -70 years.) eGFR Black/ >60 MLMIN POWERCHART Glucose 94 70 - 139 MGDL POWERCHART Blood 05/16/2011 8:41 PM PHARMACIST MANAGER Misael Mann M.D. LAB BLOOD ADD-ON Final Result POWERCHART from Last 3 Months or Most Recently Relevant to [place] [id number] [facility] [address] Care Teams Cereal Miller Relationship Specialty Start Date End Date Elsewhere, Pcp PCP - General Internal Medicine 11/26/19
--- OUTSIDE RECORDS SUMMARY | 2024-02-14 09:02 | XMS_ITS ---
Author Organization [facility] Address [address] [place] [address] Care Team Providers Care Police Sergeant Name Role Phone Unavailable Unavailable Unavailable Surgery Details Not on file Complications Check Surgery Details section. Procedure Estimated Blood Loss Check Surgery Details section. Procedure Findings Check Surgery Details section. Procedure Specimens Taken Check Surgery Details section.
== END 2024-02-14 08:53 | disposition home or self-care (01) ==
PROVIDERS: PCP Nurse Practitioner Family; Visit Provider Nurse Practitioner Family
DX: Z01.818 Encounter for other preprocedural examination (principal); I10 Essential (primary) hypertension
CPT/HCPCS: 80053; 85025

== ENCOUNTER 2024-02-15 10:21 | Outpatient (CLI) | payer BC, SELFPAY ==
--- OUTSIDE RECORDS SUMMARY | 2024-02-15 10:22 | XMS_ITS | Clinical Summary ---
Author Organization [facility] Address [address] [place] [address] Care Team Providers Care Film Splicer Name Role Phone Silvana Velarde Silva PRACTICE OFFICE ASSOCIATE, ACCOUNTS RECEIVABLE CLERK Primary Care Provi jaylon Allergies Active Allergy [...] age to complete this topic Care Teams Film Splicer Relationship Specialty Start Date End Date Silvana Velarde, PRACTICE OFFICE ASSOCIATE, ACCOUNTS RECEIVABLE CLERK [address] [place] [address] PCP - General Family Medicine 09/19/22
--- OUTSIDE RECORDS SUMMARY | 2024-02-15 10:23 | XMS_ITS ---
Author Organization [facility] Address [address] [place] [address] Care Team Providers Care Balance Wheel Facer Name Role Phone Unavailable Unavailable Unavailable Surgery Details Not on file Complications Check Surgery Details section. Procedure Estimated Blood Loss Check Surgery Details section. Procedure Findings Check Surgery Details section. Procedure Specimens Taken Check Surgery Details section.
--- OUTSIDE RECORDS SUMMARY | 2024-02-15 10:23 | XMS_ITS | Clinical Summary ---
Author Organization [facility] Address [address] [place] [address] Care Team Providers Care Flying Instructor Name Role Phone Elsewhere, Pcp Primary Care Provider Unavailabl e Source Comments Patient records contain information from all sites at [facility]. For routine questions regarding patient records, call [phone] during business hours, M-F 8:00 AM - 5:00 PM Central Time. Record requests for emergency care only can be directed to [phone] at any time.[facility] Allergies Active Allergy Reactions Criticality Noted Date [...] on file Legal Sex Female 3:43 AM SKEIN TIER Gender Identity Female 06/24/2018 8:02 AM SKEIN TIER Sexual Orientation Straight 06/24/2018 8: 02 AM SKEIN TIER Last Filed Vital Signs Vital Sign Reading [...] 157.5 cm (5' 2) 06/27/2018 2:06 PM SKEIN TIER Body Mass Index 43.1 06/27/2018 2:06 PM SKEIN TIER Plan of Treatment Health Maintenance Due Date [...] METABOLIC PANEL, S/P Routine 05/16/2011 8:41 PM SKEIN TIER from Last 3 Months or Most Recently [...] 1: Negative. Mily Contreras APRN, C.N.P., D.N.P. [facility] PROC EDURES Final Result * (ABNORMAL) BMP (Basic Metabolic Panel) (05/16/2011 8:41 PM SKEIN TIER) Sodium, S 134.6(L) 135.0 - 145.0 MML [...] 20 MMOLL POWERCHART HXeGFR (MDRD) >60(H) <=61 [id number] POWERCHART Comment: A GFR of <60 mL/min is indicative of chronic kidney disease. (MDRD calculation valid on patients 18 -70 years.) eGFR Black/ >60 MLMIN POWERCHART Glucose 94 70 - 139 MGDL POWERCHART Blood 05/16/2011 8:41 PM SKEIN TIER Misael Mann M.D. LAB BLOOD ADD-ON Final Result POWERCHART from Last 3 Months or Most Recently Relevant [place] [id number] [facility] Care Teams Flying Instructor Relationship Specialty Start Date End Date Elsewhere, Pcp PCP - General Internal Medicine 11/26/19
--- OUTSIDE RECORDS SUMMARY | 2024-02-15 10:23 | XMS_ITS | Referral Summary ---
Author Organization [facility] Address [address] [place] [address] Care Team Providers Care Soil Chemist Name Role Phone Elsewhere, Pcp Primary Care Provider Unavailabl e Source Comments Patient records contain information from all sites at [facility]. For routine questions regarding patient records, call [phone] during business hours, M-F 8:00 AM - 5:00 PM Central Time. Record requests for emergency care only can be directed to [phone] at any time.[facility] Allergies Active Allergy Reactions Criticality Noted Date [...] on file Legal Sex Female 3:43 AM QUICK TECHNICIAN Gender Identity Female 06/24/2018 8:02 AM QUICK TECHNICIAN Sexual Orientation Straight 06/24/2018 8: 02 AM QUICK TECHNICIAN Last Filed Vital Signs Vital Sign Reading [...] 157.5 cm (5' 2) 06/27/2018 2:06 PM QUICK TECHNICIAN Body Mass Index 43.1 06/27/2018 2:06 PM QUICK TECHNICIAN Plan of Treatment Not on file Procedures Procedure Name Priority Date/Time Associated Diagnosis Comments BI BREAST SCREENING BILATERAL WITH TOMOSYNTHESIS RAD - Routine (most inpatients and all outpatients) 08/10/2020 7:46 AM CDT Screening Mammogram Breast Cancer BASIC METABOLIC PANEL, S/P Routine 05/16/2011 8:41 PM QUICK TECHNICIAN from Last 3 Months or Most Recently [...] 1: Negative. Mily Contreras APRN, C.N.P., D.N.P. [facility] PROC EDURES Final Result * (ABNORMAL) BMP (Basic Metabolic Panel) (05/16/2011 8:41 PM QUICK TECHNICIAN) Sodium, S 134.6(L) 135.0 - 145.0 MML [...] 20 MMOLL POWERCHART HXeGFR (MDRD) >60(H) <=61 [id number] POWERCHART Comment: A GFR of <60 mL/min is indicative of chronic kidney disease. (MDRD calculation valid on patients 18 -70 years.) eGFR Black/ >60 MLMIN POWERCHART Glucose 94 70 - 139 MGDL POWERCHART Blood 05/16/2011 8:41 PM QUICK TECHNICIAN Misael Mann M.D. LAB BLOOD ADD-ON Final Result POWERCHART from Last 3 Months or Most Recently Relevant to [place] [phone] [facility] Care Teams Soil Chemist Relationship Specialty Start Date End Date Elsewhere, Pcp PCP - General Internal Medicine 11/26/19
--- OUTSIDE RECORDS SUMMARY | 2024-02-15 10:23 | XMS_ITS | Encounter Summary ---
Author Organization [facility] Address [address] [place] [address] Care Team Providers Care Fabrication Machine Operator Name Role Phone Elsewhere, Pcp Primary Care Provider Unavailabl e Reason for Referral * Outpatient (Routine) - Closed Specialty Diagnoses / Procedures Referred By Contjared t Referred To Contact Rheumatology Diagnoses Polyarthritis Silvana Velarde, C.N.P. Phone: tel: fax: [facility] Referral ID Status Reason Start Date Expiration Date Visits Re quested Visits Authorized [id number] Closed 03/12/2018 03/12/2019 1 1 ICE VOLUNTEER COORDINATOR Encounter Details Date Type Department Care Team (Late st Contact Info) Description 03/12/2018 Community Orders [facility] [address] [place] [phone] Silvana Velarde, C.N.P. [address] [place] [address] Polyarthritis (Primary Dx) Social History Tobacco Use Types Packs/Day Years Used Date Smoking Tobacco: Every Day Comments Unknown Sex and Gender Information Value Date Recorded Sex Assigned at Not on file Legal Sex Female 3:43 AM HOSPICE VOLUNTEER COORDINATOR Gender Identity Female 06/24/2018 8:02 AM HOSPICE VOLUNTEER COORDINATOR Sexual Orientation Straight 06/24/2018 8: 02 AM HOSPICE VOLUNTEER COORDINATOR documented as of this encounter Plan of Treatment Scheduled Referrals Name Type Priority Associated Diagnoses Order Schedule Rheumatology Referral Outpatient Referral Routine Polyarthritis Expected: 03/12/2018 (Approximate), Expires: 03/12/2021 documented as of this encounter Visit Diagnoses Diagnosis Polyarthritis- Primary documented in this encounter Additional Health Concerns Infection Onset Date Last Indicated Resolved Time COVID19 Pending 03/24/2020 03/25/2020 03/25/2020 1 1:55 PM HOSPICE VOLUNTEER COORDINATOR COVID19 Pending 07/07/2020 07/07/2020 07/07/2020 9 :46 PM CDT documented as of this encounter Care Teams Fabrication Machine Operator Relationship Specialty Start Date End Date Elsewhere, Pcp PCP - General Internal Medicine 11/26/19 documented as of this encounter
--- OUTSIDE RECORDS SUMMARY | 2024-02-15 10:23 | XMS_ITS | Clinical Summary ---
Author Organization [facility] Address [place], [place] [address] Care Team Providers Care Meals On Wheels Driver Name Role Phone Silvana Velarde MARKETING PROJECT SPECIALIST Primary Care Provider Lynn vailable Pcp, No [...] this topic Medical Devices Implanted Type Area Residential Fee Appraiser Device Identifier Shelf Expiration Date Model / Serial / Lot Implant System, Biocomposite Achilles Speedbridge W/Jumpstart Implanted:Qty: 1 on 04/04/2021 by Tyshawn Mohr DPM at [facility] Right: Ankle [employer] 12/21/2022 [id number] -CP / / [id number] Implant System, Achilles Midsubstance Speedbridge Implanted:Qty: 1 on 08/29/2021 by Tyshawn Mohr DPM at [facility] Left: Ankle [employer] 05/23/2024 AR-8929BC- CP / / [id number] Suture [place], Biocomposite [place] C, Closed Eyelet Implanted:Qty: 2 on 08/29/2021 by Tyshawn Mohr DPM at [facility] Left: Ankle [employer] 04/22/2025 [id number] / / [id number] Advance Directives * Full Code (Latest Code Status on File) Date Activated Date Inactivated Comments 08/29/2021 9:54 AM 08/29/2021 7:58 PM Question Answer Comments Code Status Discussion: Reviewed Preferences * Full Code Date Activated Date Inactivated Comments 04/04/2021 10:26 AM 04/04/2021 6:33 PM Question Answer Comments Code Status Discussion: Reviewed Preferences Care Teams Meals On Wheels Driver Relationship Specialty Start Date End Date Silvana Velarde NP [address] [place] [address] PCP - General Emergency Medicine 03/16/21 Pcp, No . 03/16/21
--- NOTE | 2024-02-15 10:45 | CRLHL7_ITS ---
For Patients: As a result of the Cures Act, medical imaging exams and procedure reports are released immediately into your electronic medical record. You may view this report before your referring provider. If you have questions, please contact your health care provider. DIGITAL DIAGNOSTIC BILATERAL MAMMOGRAM USING TOMOSYNTHESIS AND COMPUTER-AIDED DETECTION RIGHT BREAST ULTRASOUND CLINICAL HISTORY: RIGHT breast infection. COMPARISON: 04/13/2023. TECHNIQUE: Digital BILATERAL mammogram in four projections with computer-aided detection. Tomosynthesis was used in this interpretation. Real-time ultrasound imaging of RIGHT breast with imaging documentation. BREAST COMPOSITION: There are scattered areas of fibroglandular density. FINDINGS: 3D CC/MLO BILATERAL mammogram images submitted. No architectural distortion or suspicious mass. No adenopathy or suspicious calcifications. Targeted RIGHT breast ultrasound performed in an area skin redness, 5 o`clock 6 cm from the nipple. In this location, there is a small collection of hypoechoic fluid within the epidermis measuring 10 x 15 x 2 millimeters. No suspicious mass. No abnormal vascularity. IMPRESSION: Small collection of hypoechoic fluid within the epidermis at 5 o`clock 6 cm from the nipple corresponding to a focal area of skin redness, consistent with inflammation. No deeper abscess. RECOMMENDATIONS: Clinical follow-up. Results and recommendations were discussed with the patient. BI-RADS Category 2: Benign A lay language report of this examination will be provided to the patient. Dictated by Gal Hernandez MD @ 02/15/2024 11:41:25 AM jj/Dictated by: Gal Hernandez MD @ 02/15/2024 11:41:00 AM (Electronically Signed)
--- NOTE | 2024-02-15 11:15 | CRLHL7_ITS ---
For Patients: As a result of the Cures Act, medical imaging exams and procedure reports are released immediately into your electronic medical record. You may view this report before your referring provider. If you have questions, please contact your health care provider. PLEASE SEE DIGITAL DIAGNOSTIC BILATERAL MAMMOGRAM PERFORMED SAME DAY CRL:ashish hinojosa/Dictated by: Gal Hernandez MD @ 02/15/2024 11:41:00 AM (Electronically Signed)
== END 2024-02-15 10:22 | disposition home or self-care (01) ==
LOC: MAMMO 10:21
PROVIDERS: PCP Nurse Practitioner Family; Visit Provider Surgery
DX: N61.1 Abscess of the breast and nipple (principal)
CPT/HCPCS: 76642; 77066; G0279

== ENCOUNTER 2024-02-19 06:05 | Day surgery (SDC) | payer BC, SELFPAY ==
[2024-02-19] VITALS (16 sets, daily range): BP systolic 127–163; BP diastolic 76–98; PULSE 55–79; RESP 14–16; TEMP 36.4–37.2; O2SAT 95–100; BMI 44.6
--- OUTSIDE RECORDS SUMMARY | 2024-02-19 06:08 | XMS_ITS | Encounter Summary ---
Author Organization [facility] Address [address] [place] [address] Care Team Providers Care Retail Route Supervisor Name Role Phone Elsewhere, Pcp Primary Care Provider Unavailabl e Reason for Referral * Outpatient (Routine) - Closed Specialty Diagnoses / Procedures Referred By Contjared t Referred To Contact Rheumatology Diagnoses Polyarthritis Silvana Velarde, C.N.P. Phone: tel: fax: [facility] Referral ID Status Reason Start Date Expiration Date Visits Re quested Visits Authorized [id number] Closed 03/12/2018 03/12/2019 1 1 ER FRAMER HELPER Encounter Details Date Type Department Care Team (Late st Contact Info) Description 03/12/2018 Community Orders [facility] [address] [place] [phone] Silvana Velarde, C.N.P. [address] [place] [phone] Polyarthritis (Primary Dx) Social History Tobacco Use Types Packs/Day Years Used Date Smoking Tobacco: Every Day Comments Unknown Sex and Gender Information Value Date Recorded Sex Assigned at Not on file Legal Sex Female 3:43 AM TIMBER FRAMER HELPER Gender Identity Female 06/24/2018 8:02 AM TIMBER FRAMER HELPER Sexual Orientation Straight 06/24/2018 8: 02 AM TIMBER FRAMER HELPER documented as of this encounter Plan of Treatment Scheduled Referrals Name Type Priority Associated Diagnoses Order Schedule Rheumatology Referral Outpatient Referral Routine Polyarthritis Expected: 03/12/2018 (Approximate), Expires: 03/12/2021 documented as of this encounter Visit Diagnoses Diagnosis Polyarthritis- Primary documented in this encounter Additional Health Concerns Infection Onset Date Last Indicated Resolved Time COVID19 Pending 03/24/2020 03/25/2020 03/25/2020 1 1:55 PM TIMBER FRAMER HELPER COVID19 Pending 07/07/2020 07/07/2020 07/07/2020 9 :46 PM CDT documented as of this encounter Care Teams Retail Route Supervisor Relationship Specialty Start Date End Date Elsewhere, Pcp PCP - General Internal Medicine 11/26/19 documented as of this encounter
--- OUTSIDE RECORDS SUMMARY | 2024-02-19 06:08 | XMS_ITS ---
Author Organization [facility] Address [address] [place] [address] Care Team Providers Care Stripper Apprentice Name Role Phone Unavailable Unavailable Unavailable Surgery Details Not on file Complications Check Surgery Details section. Procedure Estimated Blood Loss Check Surgery Details section. Procedure Findings Check Surgery Details section. Procedure Specimens Taken Check Surgery Details section.
--- OUTSIDE RECORDS SUMMARY | 2024-02-19 06:08 | XMS_ITS | Clinical Summary ---
Author Organization [facility] Address [address] [place] [address] Care Team Providers Care Broadcast Journalist Name Role Phone Silvana Velarde Silva SECRETARY RECEPTIONIST, ENTRY LEVEL STAFF ACCOUNTANT Primary Care Provi jaylon Allergies Active Allergy [...] age to complete this topic Care Teams Broadcast Journalist Relationship Specialty Start Date End Date Silvana Velarde, SECRETARY RECEPTIONIST, ENTRY LEVEL STAFF ACCOUNTANT [address] [place] [address] PCP - General Family Medicine 09/19/22
--- OUTSIDE RECORDS SUMMARY | 2024-02-19 06:08 | XMS_ITS | Clinical Summary ---
Author Organization [facility] Address [place], [place] [address] Care Team Providers Care Unit Operator Name Role Phone Silvana Velarde SHERIFF Primary Care Provider Lynn vailable Pcp, No [...] this topic Medical Devices Implanted Type Area Size Marker Device Identifier Shelf Expiration Date Model / Serial / Lot Implant System, Biocomposite Achilles Speedbridge W/Jumpstart Implanted:Qty: 1 on 04/04/2021 by Tyshawn Mohr DPM at [facility] Right: Ankle [employer] 12/21/2022 AR-8928BCJ -CP / / [id number] Implant System, Achilles Midsubstance Speedbridge Implanted:Qty: 1 on 08/29/2021 by Tyshawn Mohr DPM at [facility] Left: Ankle [employer] 05/23/2024 AR-8929BC- CP / / [id number] Suture [place], Biocomposite Swivellock C, Closed Eyelet Implanted:Qty: 2 on 08/29/2021 by Tyshawn Mohr DPM at [facility] Left: Ankle [employer] 04/22/2025 AR-[id number] / / [id number] Advance Directives * Full Code (Latest Code Status on File) Date Activated Date Inactivated Comments 08/29/2021 9:54 AM 08/29/2021 7:58 PM Question Answer Comments Code Status Discussion: Reviewed Preferences * Full Code Date Activated Date Inactivated Comments 04/04/2021 10:26 AM 04/04/2021 6:33 PM Question Answer Comments Code Status Discussion: Reviewed Preferences Care Teams Unit Operator Relationship Specialty Start Date End Date Silvana Velarde NP [address] [place] [address] PCP - General Emergency Medicine 03/16/21 Pcp, No . 03/16/21
--- OUTSIDE RECORDS SUMMARY | 2024-02-19 06:08 | XMS_ITS | Referral Summary ---
Author Organization [facility] Address [address] [place] [address] Care Team Providers Care Occupational Health And Safety Adviser Name Role Phone Elsewhere, Pcp Primary Care Provider Unavailabl e Source Comments Patient records contain information from all sites at [facility]. For routine questions regarding patient records, call [phone] during business hours, M-F 8:00 AM - 5:00 PM Central Time. Record requests for emergency care only can be directed to [phone] at any time.[facility] Allergies Active Allergy Reactions Criticality Noted Date [...] on file Legal Sex Female 3:43 AM STEAM AND POWER SUPERINTENDENT Gender Identity Female 06/24/2018 8:02 AM STEAM AND POWER SUPERINTENDENT Sexual Orientation Straight 06/24/2018 8: 02 AM STEAM AND POWER SUPERINTENDENT Last Filed Vital Signs Vital Sign Reading [...] 157.5 cm (5' 2) 06/27/2018 2:06 PM STEAM AND POWER SUPERINTENDENT Body Mass Index 43.1 06/27/2018 2:06 PM STEAM AND POWER SUPERINTENDENT Plan of Treatment Not on file Procedures Procedure Name Priority Date/Time Associated Diagnosis Comments BI BREAST SCREENING BILATERAL WITH TOMOSYNTHESIS RAD - Routine (most inpatients and all outpatients) 08/10/2020 7:46 AM CDT Screening Mammogram Breast Cancer BASIC METABOLIC PANEL, S/P Routine 05/16/2011 8:41 PM STEAM AND POWER SUPERINTENDENT from Last 3 Months or Most Recently [...] 1: Negative. Mily Contreras APRN, C.N.P., D.N.P. [facility] PROC EDURES Final Result * (ABNORMAL) BMP (Basic Metabolic Panel) (05/16/2011 8:41 PM STEAM AND POWER SUPERINTENDENT) Sodium, S 134.6(L) 135.0 - 145.0 MML [...] 20 MMOLL POWERCHART HXeGFR (MDRD) >60(H) <=61 [id number] POWERCHART Comment: A GFR of <60 mL/min is indicative of chronic kidney disease. (MDRD calculation valid on patients 18 -70 years.) eGFR Black/ >60 MLMIN POWERCHART Glucose 94 70 - 139 MGDL POWERCHART Blood 05/16/2011 8:41 PM STEAM AND POWER SUPERINTENDENT Misael Mann M.D. LAB BLOOD ADD-ON Final Result POWERCHART from Last 3 Months or Most Recently Relevant to Health [place] [phone] [facility] Care Teams Occupational Health And Safety Adviser Relationship Specialty Start Date End Date Elsewhere, Pcp PCP - General Internal Medicine 11/26/19
--- OUTSIDE RECORDS SUMMARY | 2024-02-19 06:08 | XMS_ITS | Clinical Summary ---
Author Organization [facility] Address [address] [place] [address] Care Team Providers Care Surveying Teacher Name Role Phone Elsewhere, Pcp Primary Care Provider Unavailabl e Source Comments Patient records contain information from all sites at [facility]. For routine questions regarding patient records, call [phone] during business hours, M-F 8:00 AM - 5:00 PM Central Time. Record requests for emergency care only can be directed to [phone] at any time.[facility] Allergies Active Allergy Reactions Criticality Noted [...] on file Legal Sex Female 3:43 AM INSECT CONTROL AIDE Gender Identity Female 06/24/2018 8:02 AM INSECT CONTROL AIDE Sexual Orientation Straight 06/24/2018 8: 02 AM INSECT CONTROL AIDE Last Filed Vital Signs Vital Sign Reading [...] 157.5 cm (5' 2) 06/27/2018 2:06 PM INSECT CONTROL AIDE Body Mass Index 43.1 06/27/2018 2:06 PM INSECT CONTROL AIDE Plan of Treatment Health Maintenance Due Date [...] METABOLIC PANEL, S/P Routine 05/16/2011 8:41 PM INSECT CONTROL AIDE from Last 3 Months or Most Recently [...] 1: Negative. Mily Contreras APRN, C.N.P., D.N.P. [facility] BI PROC EDURES Final Result * (ABNORMAL) BMP (Basic Metabolic Panel) (05/16/2011 8:41 PM INSECT CONTROL AIDE) Sodium, S 134.6(L) 135.0 - 145.0 MML [...] 20 MMOLL POWERCHART HXeGFR (MDRD) >60(H) <=61 [id number] POWERCHART Comment: A GFR of <60 mL/min is indicative of chronic kidney disease. (MDRD calculation valid on patients 18 -70 years.) eGFR Black/ >60 MLMIN POWERCHART Glucose 94 70 - 139 MGDL POWERCHART Blood 05/16/2011 8:41 PM INSECT CONTROL AIDE Misael Mann M.D. LAB BLOOD ADD-ON Final Result POWERCHART from Last 3 Months or Most Recently Relevant [place] [id number] [facility] Care Teams Surveying Teacher Relationship Specialty Start Date End Date Elsewhere, Pcp PCP - General Internal Medicine 11/26/19
[2024-02-19] MEDS: ACETAMINOPHEN 500 MG TABLET 1000 MG PO ×2 (06:43→11:28)
[2024-02-19] MEDS: CELECOXIB 200 MG CAPSULE PO (06:43)
[2024-02-19] MEDS: LACTATED RINGERS 1000 ML 1,000 ML 100 ML IV (06:50)
[2024-02-19] MEDS: SODIUM CHLORIDE 0.9 % (FLUSH) 10 ML SYRINGE IVF (06:50)
[2024-02-19] MEDS: MIDAZOLAM HCL 1 MG/ML inj IVP (07:16)
[2024-02-19] MEDS: fentaNYL 100 MCG/2 ML inj IVP (07:16)
--- NOTE | 2024-02-19 07:17 | SUR.PREOP ---
TIME?OUT:?0715 PT/RN/MDA?VERIFICATION?OF?SURGICAL?SITE,?PROCEDURE,?AND?CONSENT OBTAINED?PRIOR?TO?INVASIVE?PROCEDURE.
[2024-02-19] MEDS: TRANEXAMIC ACID 100 MG/ML INJ 1000 MG IV (07:43)
[2024-02-19] MEDS: CEFAZOLIN 2 GM INJ IVP (07:45)
--- NOTE | 2024-02-19 09:07 | CRLHL7_ITS ---
For Patients: As a result of the Cures Act, medical imaging exams and procedure reports are released immediately into your electronic medical record. You may view this report before your referring provider. If you have questions, please contact your health care provider. Indication: Postop TKA Technique: Two views right knee Findings/Impression: Hardware from a right total knee arthroplasty is in satisfactory position. Bone alignment is normal. No sign of acute fracture. Postop changes are within normal limits. Dictated by Gal Hernandez MD @ 02/19/2024 12:01:49 PM (Electronically Signed)
--- NOTE | 2024-02-19 09:10 | PM.ORPRC ---
Procedure Note Date of procedure: 02/19/24 Procedure: PREOPERATIVE DIAGNOSIS: Right knee osteoarthritis POSTOPERATIVE DIAGNOSIS: Right knee osteoarthritis NAME OF OPERATION: Right total knee arthroplasty SURGEON: Allen Ferrer MD BEHAVIOR SPECIALIST: Romelia Gilbert PA-C ANESTHESIA: Spinal ESTIMATED BLOOD LOSS: 0 mL COMPLICATIONS: None SPECIMENS: None DRAINS: None PREOPERATIVE ANTIBIOTICS: Ancef 2 grams, antibiotic impregnated cement IMPLANTS: 1. J&J Attune revision CRS # 5 posterior stabilized femur, 14 mm x 50 mm cemented stem 2. #4 revision CRS fixed-bearing tibia, 14 mm x 50 mm cemented stem 3. # 5 posterior stabilized, 5 mm fixed-bearing polyethylene 4. 35 patella INDICATIONS: The patient is a 53-year-old with a longstanding history of severe, unrelenting right knee pain secondary to end-stage (grade IV) right knee osteoarthritis. Despite appropriate nonoperative management, including activity modification, anti-inflammatories, akeg-ter-ynkftrr pain medication, bracing, physical therapy, and injections they continue to have pain and disability. Operative intervention was offered. The risks, benefits and expected outcomes were discussed in detail. These included but were not limited to: Infection, bleeding, injury to blood vessel or nerve, venous thromboembolism. All questions were answered to their satisfaction. Use of an data control assistant was necessary throughout the case for patient positioning and safety, soft tissue retraction, and closure. PROCEDURE: Spinal anesthesia was administered. The patient was placed supine on the operating table. The data control assistant made sure the patient was positioned appropriately. The lower extremity was prepped and draped in the usual sterile fashion. The limb was exsanguinated with the Narendra bandage. The pneumatic tourniquet was inflated to 300 mmHg. A standard anterior incision was made with the knee in flexion. Subcutaneous dissection was sharply taken through fascial layer #1. Full-thickness medial and lateral flaps were elevated. The data control assistant retracted the soft tissues and protected them throughout the case. A standard subvastus approach was made. The patella was subluxed. The infrapatellar fat pad was debrided. The menisci and cruciate ligaments were sharply d?brided. Marginal osteophytes were d?brided with the rongeur. The drill was used to penetrate the femoral canal. The canal was aspirated and irrigated with pulse lavage. The intramedullary femoral guide was placed for a 5-degree valgus cut, removing 10 mm off the distal femur. The saw was used to make the cut. Whitesides line and the trans epicondylar axis were marked. The femoral sizing guide was pinned onto the distal femur. Three degrees of external rotation nicely parallels the transepicondylar axis. Pins were placed for posterior referencing. The four-in-one cutting guide was pinned onto the distal femur. The anterior, posterior, and chamfer cuts were made. The data control assistant protected the collateral ligaments. The revision trial was placed. The box cuts were made. The drill was used x2. The stemmed, boxed trial was placed and was an excellent fit. Attention was then turned to the proximal tibia. The extramedullary tibial guide was placed for a neutral varus/valgus cut with 5 degrees of posterior slope, removing 2 mm based off the medial tibial surface. The data control assistant protected the collateral ligaments and the neurovascular bundle. The saw was used to make the cut. Trial components were placed. The knee was nicely balanced in both flexion and extension. The trial components were removed. The tray was placed in appropriate rotation, parallel to our tibial cutting pins. It was pinned by the data control assistant and the drill x2 was used. The stemmed tibial trial was placed. The punch was used. The tray was removed. The punch was used again. Attention was then turned to the patella. [place] patellar thickness was 21.5 mm. The lobster claw resection guide was used with the 7.5 mm rhett. The saw was used to make the cut. Drill holes were made by the data control assistant. The trial was placed and was an excellent fit. Cancellous surfaces were irrigated with pulse lavage and thoroughly dried by the data control assistant. We cemented the tibial component, then the femoral component. We impacted the 5 mm polyethylene onto the tibial tray. The knee was brought into full extension. We then cemented the patellar component. Excessive cement was removed. The cement was allowed to harden. The knee was taken through a range of motion and was found to be nicely balanced in both flexion and extension. The patella tracks centrally. The data control assistant did a three minute dilute Betadine solution soak. The data control assistant irrigated the wound with 3 liters of normal saline via pulse lavage. The data control assistant reapproximated the extensor mechanism with #1 Vicryl in an interrupted khmhed-po-ioyku fashion. The data control assistant then ran the extensor mechanism with a #1 PDO Stratafix. The data control assistant closed the subcutaneous tissues with a 3-0 Stratafix and the skin with a running 3-0 Stratafix in a subcuticular fashion. Glue was used to seal the skin. The data control assistant placed a dry dressing. Sponge and needle counts were correct x2. The patient tolerated the procedure well. There were no apparent complications. They were carefully transferred to the hospital bed and taken to the postanesthesia care unit in satisfactory condition. PLAN: The patient will be mobilized with physical therapy. Aspirin will be used for DVT prophylaxis. They will be discharged to home once medically appropriate.
--- NOTE | 2024-02-19 10:03 | P.NB_ITS ---
Nerve Block Nerve Block Time Seen by Provider: 07:15 Date Seen: 02/19/24 Type of block requested by surgeon for post-operative analgesia: adductor canal Side: right Time out performed: Yes Verification of patient name: Yes Verification of date of : Yes Site marking: site marked Name of person performing procedure: Aram Continuous monitoring Was continuous monitoring of O2 sat, B/P, press brake operator, recorded every 15 minutes?: Yes Procedure Checklist: sterile prep, needles and gloves Ultrasound guided. Images saved: Yes Medications given in 5ml increments after negative aspiration: Marcaine %: 0.25 mL: 15 Needle gauge: 20 Precedex (mcg): 25 Patient tolerated procedure well: Yes Block Charges Block Charge (with Pro Fee): Femoral Nerve Use of Ultrasound Machine for Block: Yes- US Guidance/pain block
--- NOTE | 2024-02-19 10:03 | W.ANESCHARGE ---
Anesthesia Charges Start Date/Time Anesthesia Start Date: 02/19/24 Anesthesia Start Time: 07:39 Stop Date/Time Anesthesia Stop Date: 02/19/24 Anesthesia Stop Time: 10:05
--- NOTE | 2024-02-19 10:04 | P.NB_ITS ---
Nerve Block Nerve Block Time Seen by Provider: 07:15 Date Seen: 02/19/24 Type of block requested by surgeon for post-operative analgesia: geniculars Side: right Time out performed: Yes Verification of patient name: Yes Verification of date of : Yes Site marking: site marked Name of person performing procedure: Aram Continuous monitoring Was continuous monitoring of O2 sat, B/P, tree trimming supervisor, recorded every 15 minutes?: Yes Procedure Checklist: sterile prep, needles and gloves Ultrasound guided. Images saved: Yes Medications given in 5ml increments after negative aspiration: Marcaine %: 0.25 mL: 9 Needle gauge: 25 Patient tolerated procedure well: Yes Block Charges Block Charge (with Pro Fee): Genicular Nerve Block
--- NOTE | 2024-02-19 10:04 | W.ANESCHARGE ---
Anesthesia Charges Start Date/Time Anesthesia Start Date: 02/19/24 Anesthesia Start Time: 07:39 Stop Date/Time Anesthesia Stop Date: 02/19/24 Anesthesia Stop Time: 10:05
== END 2024-02-19 13:20 | disposition home or self-care (01) ==
LOC: OR 06:06
PROVIDERS: PCP Nurse Practitioner Family; Visit Provider Orthopaedic Surgery
PROC: (CPT 27447; principal; 2024-02-19 07:30)
DX: M17.11 Unilateral primary osteoarthritis, right knee (principal); G89.18 Other acute postprocedural pain
CPT/HCPCS: 27447; 01402; 64447; 64454; 73560; 76942; 97110; 97116; 97161; 97530; A9270; C1776; J0665; J0690; J1100; J2250; J2405; J2704; J3010; J3490; J7120

== ENCOUNTER 2024-05-08 08:07 | Outpatient (CLI) | payer BC, SELFPAY ==
[2024-05-08 16:06] LABS: PCR FLU A POSITIVE PCR FLU A (Negative); PCR FLU B Negative PCR FLU B (Negative); PCR RSV Negative PCR RSV (Negative); SARS PCR* Negative SARS-CoV-2 (Negative)
== END 2024-05-08 08:08 | disposition home or self-care (01) ==
PROVIDERS: PCP Nurse Practitioner Family; Visit Provider Nurse Practitioner Family
DX: R05.1 Acute cough (principal); J02.9 Acute pharyngitis, unspecified; R06.2 Wheezing; R06.09 Other forms of dyspnea; R51.9 Headache, unspecified
CPT/HCPCS: 85025; 87631

== ENCOUNTER 2024-06-24 05:58 | Day surgery (SDC) | payer BC, SELFPAY ==
[2024-06-24] VITALS (11 sets, daily range): BP systolic 80–143; BP diastolic 46–82; PULSE 63–72; RESP 16; TEMP 36.1–36.4; O2SAT 96–98; BMI 45.6
--- OUTSIDE RECORDS SUMMARY | 2024-06-24 06:00 | XMS_ITS | Encounter Summary ---
Author Organization [facility] Address [address] [place] [address] Care Team Providers Care Welt Drawer Name Role Phone Elsewhere, Pcp Primary Care Provider Unavailabl e Reason for Referral * Outpatient (Routine) - Closed Specialty Diagnoses / Procedures Referred By Contjared t Referred To Contact Rheumatology Diagnoses Polyarthritis Silvana Velarde, C.N.P. Phone: tel: fax: [facility] Referral ID Status Reason Start Date Expiration Date Visits Re quested Visits Authorized [id number] Closed 03/12/2018 03/12/2019 1 1 RRAGE CLERK Encounter Details Date Type Department Care Team (Late st Contact Info) Description 03/12/2018 [facility] [address] [place] [phone] Silvana Velarde, C.N.P. [address] [place] [phone] Polyarthritis (Primary Dx) Social History Tobacco Use Types Packs/Day Years Used Date Smoking Tobacco: Every Day Comments Unknown Sex and Gender Information Value Date Recorded Sex Assigned at Not on file Legal Sex Female 3:43 AM DEMURRAGE CLERK Gender Identity Female 06/24/2018 8:02 AM DEMURRAGE CLERK Sexual Orientation Straight 06/24/2018 8: 02 AM DEMURRAGE CLERK documented as of this encounter Plan of Treatment Upcoming Encounters Date Type Department Care Team (Latest Contact Info) Description 06/26/2024 10:30 AM DEMURRAGE CLERK Comprehensive Visit Department of Rehabilitation Services in [address] [phone] Ciro Michaud M.D. [address] [place] [phone] Sami Simental P.TCarine [address] [place] [phone] Scheduled Referrals Name Type Priority Associated Diagnoses Order Schedule Rheumatology Referral Outpatient Referral Routine Polyarthritis Expected: 03/12/2018 (Approximate), Expires: 03/12/2021 documented as of this encounter Visit Diagnoses Diagnosis Polyarthritis- Primary documented in this encounter Additional Health Concerns Infection Onset Date Last Indicated Resolved Time COVID19 Pending 03/24/2020 03/25/2020 03/25/2020 1 1:55 PM DEMURRAGE CLERK COVID19 Pending 07/07/2020 07/07/2020 07/07/2020 9 :46 PM CDT documented as of this encounter Care Teams Welt Drawer Relationship Specialty Start Date End Date Elsewhere, Pcp PCP - General Internal Medicine 11/26/19 documented as of this encounter
--- OUTSIDE RECORDS SUMMARY | 2024-06-24 06:01 | XMS_ITS | Clinical Summary ---
Author Organization [facility] er Address [address] [place] [id number] Care Team Providers Care Route Sales Driver Name Role Phone Silvana Velarde VP MEDICAL, QLIKVIEW DEVELOPER Primary Care Provi jaylon Allergies Active Allergy [...] Date Recorded PHQ-9 Total Score 0 07/06/2022 Comments No Sex and Gender Information Value Date Recorded Sex Assigned at Not on file Legal Sex Female 9:13 PM CDT Gender Identity Not on file Sexual Orientation Not on file Last Filed Vital Signs Vital Sign Reading Time Taken Comments Blood Pressure 138/80 07/06/2022 2:35 PM CDT Pulse 80 07/06/2022 2:02 PM CDT Temperature 35.7 C (96.3 F) 07/06/2022 2:02 PM CDT Respiratory Rate 18 07/06/2022 2:02 PM CDT [...] 1968 FIT-DNA 1968 Sigmoidoscopy 1968 iFOBT 1968 Pneumococcal Vaccine: 50+ Years (1 of 1 - PCV) 2018 Zoster Vaccines (1 of 2) 2018 Mammogram [...] 5 Years) and At-Risk Patients (6 to 49 Years) Aged Out No longer eligible based on patient's age to complete this topic Insurance [facility] Care Teams Route Sales Driver Relationship Specialty Start Date End Date Silvana Velarde, VP MEDICAL, QLIKVIEW DEVELOPER [address] [place] [address] PCP - General Family Medicine 09/19/22
[2024-06-24] MEDS: LACTATED RINGERS 1000 ML 1,000 ML 100 ML IV (06:40)
[2024-06-24] MEDS: SODIUM CHLORIDE 0.9 % (FLUSH) 10 ML SYRINGE IVF (06:40)
[2024-06-24] MEDS: CEFAZOLIN 2 GM INJ IVP (07:30)
--- NOTE | 2024-06-24 08:10 | P.ORPRC_ITS ---
Procedure Note Date of procedure: 06/24/24 Procedure: PREOPERATIVE DIAGNOSIS: Right total knee arthroplasty patellar clunk syndrome, arthrofibrosis POSTOPERATIVE DIAGNOSIS: Right total knee arthroplasty patellar clunk syndrome, arthrofibrosis NAME OF OPERATION: Right total knee arthroplasty arthroscopic debridement, manipulation under anesthesia SURGEON: Allen Ferrer MD HAIR OR BEAUTY SALON ASSISTANT: KAMRYN Lopez ANESTHESIA: Spinal ESTIMATED BLOOD LOSS: 0 mL COMPLICATIONS: None SPECIMENS: None DRAINS: None PREOPERATIVE ANTIBIOTICS: Ancef 2 gram INDICATIONS: The patient is a 53-year-old with a 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 Operative intervention was recommended. The risks, benefits and expected outcomes were discussed in detail. These included but were not limited to: Infection, bleeding, injury to blood vessel or nerve, venous thromboembolism. All questions were answered to their satisfaction. PROCEDURE: Spinal anesthesia was administered. The patient was placed supine on the operating room table. The right lower extremity was prepped and draped in the usual sterile fashion. The limb was exsanguinated with the Narendra bandage. The pneumatic tourniquet was inflated to 300 mmHg. A standard anterolateral portal was established. The arthroscope was introduced. The working portal was established anteromedially. Diagnostic arthroscopy was performed with findings as follows: The patellar component is intact with scarring around the distal pole. The femoral component is normal, the tibial polyethylene is normal. The scarring posterior to the patellar tendon was debrided with the radiofrequency probe and shaver. A superolateral portal was placed. Then we aggressively debrided around the patellar component and posterior to the quads tendon with the shaver and radiofrequency probe. Lateral gutter has some proud cement adjacent to the femoral component. This was smoothed off with the 4.0 mm bur and a large piece of cement was removed with pituitary rongeur. Arthroscopic instruments were removed. The knee was manipulated into flexion, achieving 120?. The portal sites were closed with a 3-0 nylon. Portals were injected with 0.25% Marcaine without epinephrine. A dry dressing was applied, the tourniquet was released. Sponge and needle counts were correct x 2. The patient tolerated the procedure well. There were no apparent complications. They were carefully transferred to the hospital bed and taken to the postanesthesia care unit in satisfactory condition. PLAN: The patient will be discharged to home. They may weightbear as tolerates. Range of motion will be unrestricted. They will follow up in the office in 2 weeks for a wound check and suture removal.
--- NOTE | 2024-06-24 08:20 | W.ANESCHARGE ---
Anesthesia Charges Start Date/Time Anesthesia Start Date: 06/24/24 Anesthesia Start Time: 07:16 Stop Date/Time Anesthesia Stop Date: 06/24/24 Anesthesia Stop Time: 08:22 Coding CPT Codes CPT Codes: ANESTH KNEE JOINT SURGERY - 99977 ([id number]) P3 - PATIENT W/SEVERE SYS DISEASE, QK - TELETYPESETTER MONITOR 2-4 CNCRNT ANES PROC, QX - INDEPENDENT LIVING INSTRUCTOR SVC W/ MD MED DIRECTION
--- NOTE | 2024-06-24 08:55 | W.ANESCHARGE ---
Anesthesia Charges Start Date/Time Anesthesia Start Date: 06/24/24 Anesthesia Start Time: 07:16 Stop Date/Time Anesthesia Stop Date: 06/24/24 Anesthesia Stop Time: 08:22 Coding CPT Codes CPT Codes: ANESTH KNEE JOINT SURGERY - 12807 ([id number]) QK - CATSHOVEL DRIVER 2-4 CNCRNT ANES PROC, QX - OVERNIGHT STOCKER SVC W/ MD MED DIRECTION, P3 - PATIENT W/SEVERE SYS DISEASE
== END 2024-06-24 09:50 | disposition home or self-care (01) ==
LOC: OR 05:58
PROVIDERS: PCP Nurse Practitioner Family; Visit Provider Orthopaedic Surgery
PROC: (CPT 29870; principal; 2024-06-24 07:15)
DX: M25.861 Other specified joint disorders, right knee (principal); M24.661 Ankylosis, right knee
CPT/HCPCS: 29877; 27570; 01400; J0690; J1100; J2250; J2371; J2405; J2704; J3010; J7120

== ENCOUNTER 2025-03-23 14:49 | Outpatient (CLI) | payer BC, SELFPAY | END 2025-03-23 14:50 | disposition home or self-care (01) | LOC: KYNREF 14:50 | PROVIDERS: PCP Nurse Practitioner Family; Visit Provider Nurse Practitioner Family | DX: I10 Essential (primary) hypertension (principal) | CPT/HCPCS: 80048 ==